=== PATIENT | female | born 1965 | race American Indian/Alaskan Native ===

== ENCOUNTER 2017-08-03 05:56 | Day surgery (SDC) | payer OTHER ==
[2017-08-03] MEDS ORDERED: VERSED IV NR (06:00)
[2017-08-03] MEDS ORDERED: PEPCID PO NR (06:00)
[2017-08-03] MEDS ORDERED: NACL 0.9% 1000 ML 1,000 ML IV SCH (06:00)
[2017-08-03] MEDS ORDERED: ANCEF/STERILE WATER 2 GM/20 ML 2 GM/20 ML SYRINGE IV NR (06:00)
[2017-08-03] MEDS ORDERED: NACL BACTERIOSTATIC INFILTRATI ONE (06:39)
--- NOTE | 2017-08-03 06:50 | Anesthesia Consultation ---
Anesthesia Consult and Med Hx Date of service: 08/03/17 - Airway Anesthetic Teeth Evaluation: Good ROM Head & Neck: Adequate Mental/Hyoid Distance: Adequate Mallampati Class: Class III Intubation Access Assessment: Possibly Difficult - Pulmonary Exam CTA: Yes - Cardiac Exam Cardiac Exam: RRR - Pre-Operative Health Status ASA Pre-Surgery Classification: ASA3 Proposed Anesthetic Plan: General - Pulmonary Hx Smoking: Yes (STOPPED X 30 YRS) Hx Sleep Apnea: No (GRECIA PRE SCREEN HIGH RISK) - Cardiovascular System Hx Hypertension: Yes (X 5 YRS) Hx Angina: No Hx Heart Murmur: Yes (CAUSES NO PROBLEMS) - Endocrine Hx End Stage Renal Disease: Yes (Has vas cath, last dialyzed 08/02/17) Hx Insulin Dependent Diabetes: Yes - Hematic Hx Anemia: Yes - Other Systems Hx Cancer: No
[2017-08-03] MEDS ORDERED: DILAUDID IV PRN ×2 (06:51)
--- NOTE | 2017-08-03 06:51 | Anesthesia Day of Surgery ---
Anesthesia Day of Surgery - Day of Surgery Patient Examined: Yes Patient H&P Reviewed: Yes Patient is NPO: Yes Beta Blockers: Yes
[2017-08-03 07:15] LABS: Hematocrit 34.9 % (30.3-42.9); Hemoglobin 11.2 gm/dl (10.1-14.3)
[2017-08-03 07:34] LABS: Albumin 3.6 g/dL (3.9-5); Albumin/Globulin Ratio 0.9 %; Bilirubin,Total 0.4 mg/dL (0.1-1.2); Calcium 8.7 mg/dL (8.4-10.2); Chloride 96.8 mmol/L (98-107); Total Protein 7.6 g/dL (6.3-8.2)
[2017-08-03 07:41] LABS: Potassium 5.3 mmol/L (3.6-5.0)
[2017-08-03] MEDS ORDERED: XYLOCAINE MPF 2% ONE (07:41)
[2017-08-03] MEDS ORDERED: DIPRIVAN 10 MG/ML IV ONE (07:41)
[2017-08-03] MEDS ORDERED: SUBLIMAZE ONE (07:41)
[2017-08-03] MEDS ORDERED: PROTAMINE SULFATE ONE (07:49)
[2017-08-03] MEDS ORDERED: NACL 0.9% 500 ML 500 ML ONE (07:49)
[2017-08-03] MEDS ORDERED: HEPARIN 10,000 UNITS/10 ML ONE (07:49)
[2017-08-03] MEDS ORDERED: PAPAVERINE ONE (07:49)
[2017-08-03] MEDS ORDERED: MARCAINE 0.5% 30 ML INFILTRATI ONE (07:49)
[2017-08-03] MEDS ORDERED: PERCOCET 5/325 PO PRN (08:00)
[2017-08-03] MEDS ORDERED: ZOFRAN IV PRN (08:00)
[2017-08-03] MEDS ORDERED: HEPARIN 10,000 UNITS/10 ML 2,000 UNIT in NACL 0.9% 500 ML 500 ML IR ONE (08:35)
[2017-08-03] MEDS ORDERED: NACL 0.9% IR ONE (08:36)
[2017-08-03] MEDS ORDERED: MARCAINE 0.5% INFILTRATI ONE ×2 (08:36)
[2017-08-03] MEDS ORDERED: ePHEDrine SULFATE ONE (09:01)
[2017-08-03] MEDS ORDERED: ZOFRAN ONE ×2 (09:39→12:22)
--- NOTE | 2017-08-03 09:45 | Operative Report ---
Operative Report Operative Report: Preoperative diagnosis: End-stage renal disease/dialysis dependent renal failure. Postop diagnosis: The same Procedure: Left radiocephalic arteriovenous fistula creation. Surgeon: Blane Padron MD., RPVI Nursing Program Director: none Anesthesia: Local with IV sedation EBL: 20 mL IV fluids: 600 mL Findings: Adequate size left radial artery, adequate size left cephalic vein, palpable thrill in the vein after the anastomosis. Disposition: To recovery Indications end-stage renal disease. Procedure in details: Patient was brought to the operating room and laid on the operating room table in supine position. After LMA anesthesia was achieved patient left arm was prepped and draped in the usual sterile fashion. The longitudinal incision between the palpated radial artery and imaged cephalic vein made using #15 blade. Subcutaneous tissue was divided with Bovie electrocautery. The left cephalic vein was dissected free. The cephalic vein was disconnected from the distal cephalic vein and controlled was bulldog. It was heparinized with heparinized saline and dilated well. The left radial artery was then dissected and encircled with Vesseloops proximally and distally. Patient received 2000 units of intravenous heparin. After 3 minutes the artery was occluded with vessel clamps and arteriotomy was made using #11 blade and Hammonds scissors. The distal end of the vein was spatulated using Hammonds scissors. The anastomosis was created using a running 7-0 Prolene running suture using BV1 needle. Prior to completion the artery was flushed proximally and distally and good forward and back bleeding was seen. Then anastomosis was completed the clamps were removed. The hemostasis was excellent. The strong thrill was appreciated over the cephalic vein. Once it was ascertained that hemostasis was good the skin was closed using 3-0 vicryl and 4-0 monocryl sutures. Patient tolerated procedure well. He was awakened and taken to the recovery room. At the end of the case 1/4 percent Marcaine when infiltrated into the incision for postoperative pain control. All sponge and needle counts were correct.
--- NOTE | 2017-08-03 09:48 | Short Stay Summary ---
Short Stay Documentation - History H&P: obtained from office - Allergies and Medications Current Medications: Allergies amlodipine Allergy (Verified 08/02/17 10:42) Itching losartan Allergy (Verified 08/02/17 10:42) Itching sulfamethoxazole [From Bactrim] Allergy (Verified 08/02/17 10:42) Rash trimethoprim [From Bactrim] Allergy (Verified 08/02/17 10:42) Rash morphine Adverse Reaction (Verified 08/02/17 10:42) Vomiting Home Medications Medication Instructions Recorded Confirmed Last Taken Type Insulin Glargine [Lantus] 10 unit SUB-Q QHS 08/02/17 08/03/17 08/02/17 History Insulin Lispro [HumaLOG VIAL] 8 units SQ BID 08/02/17 08/03/17 08/02/17 History Labetalol [Normodyne] 200 mg PO BID 08/02/17 08/03/17 08/03/17 History Torsemide [Demadex] 60 mg PO BID 08/02/17 08/03/17 08/03/17 History cloNIDine [Catapres] 0.2 mg PO BID 08/02/17 08/03/17 08/03/17 History Active Medications Famotidine (Pepcid) 20 mg PO PREOP NR Stop: 08/03/17 23:59 Last Admin: 08/03/17 07:00 Dose: 20 mg Hydromorphone HCl (Dilaudid) 0.5 mg IV Q10MIN PRN PRN Reason: Pain , Severe (7-10) Stop: 08/03/17 15:00 Hydromorphone HCl (Dilaudid) 0.25 mg IV Q10MIN PRN PRN Reason: Pain, Moderate (4-6) Stop: 08/03/17 15:00 Cefazolin Sodium (Ancef/Sterile Water 2 Gm/20 Ml) 2 gm in 20 mls @ 80 mls/hr IV PREOP NR PRN Reason: Protocol Stop: 08/03/17 15:00 Sodium Chloride (Nacl 0.9% 1000 Ml) 1,000 mls @ 42 mls/hr IV DIRECT FATMATA Last Admin: 08/03/17 06:45 Dose: 42 mls/hr Midazolam HCl (Versed) 2 mg IV PREOP NR Stop: 08/03/17 23:59 Last Admin: 08/03/17 07:11 Dose: 2 mg - Brief post op/procedure progress note Procedure: Preoperative diagnosis: End-stage renal disease/dialysis dependent renal failure. Postop diagnosis: The same Procedure: Left radiocephalic arteriovenous fistula creation. Surgeon: Emperatriz Padron MD., RPVI Lime Sludge Kiln Operator: none Anesthesia: Local with IV sedation EBL: 20 mL IV fluids: 600 mL Findings: Adequate size left radial artery, adequate size left cephalic vein, palpable thrill in the vein after the anastomosis. Disposition: To recovery - Disposition Condition at discharge: Good Disposition: DC-01 TO HOME OR SELFCARE Short Stay Discharge Plan Activity: other (no heavy lifting with left arm for 6 weeks) Weight Bearing Status: Full Weight Bearing Diet: renal Wound: open to air Follow up with: EMPERATRIZ PADRON MD [Staff Physician] - 14 Days
[2017-08-03] MEDS ORDERED: D50W (25GM) Syringe IV ONE ×2 (10:04→11:00)
--- NOTE | 2017-08-03 10:42 | Post Anesthesia Evaluation ---
- Post Anesthesia Evaluation Patient Participated: Yes Airway Patent: Yes Stable Respiratory Function: Yes Nausea/Vomiting: No Temp > 96.8F: Yes Pain Manageable: Yes Adequeate Hydration: Yes Anesthesia Complications: No Block Receding Appropriately: Not Applicable Patient on Ventilator: No
[2017-08-03] MEDS ORDERED: ZOFRAN IM ONE (13:00)
[2017-08-03 18:31] VITALS: BP 150/76
== END 2017-08-03 12:42 | disposition home or self-care (01) ==
LOC: OR 05:56
PROVIDERS: ATTEND Surgery Vascular Surgery
DX: E11.22 Type 2 diabetes mellitus with diabetic chronic kidney disease (principal); I12.0 Hypertensive chronic kidney disease with stage 5 chronic kidney disease or end stage renal disease; N18.6 End stage renal disease; Z88.1 Allergy status to other antibiotic agents; Z88.6 Allergy status to analgesic agent; Z88.8 Allergy status to other drugs, medicaments and biological substances; Z87.891 Personal history of nicotine dependence
CPT/HCPCS: 36415; 36821; 80053; 82962; 85014; 85018; J0690; J1170; J1644; J2250; J2405; J2704; J3010; J7030; J7040; J1815; J2440; J2720

== ENCOUNTER 2018-11-15 23:54 | Inpatient (IN) | payer OTHER ==
[2018-11-16 00:38] LABS: Hematocrit 35.1 % (30.3-42.9); Hemoglobin 11.6 gm/dl (10.1-14.3); Mean Corpuscular HGB Conc 33 % (30-34); Mean Corpuscular Volume 71 fl (79-97); Red Blood Count 4.91 M/mm3 (3.65-5.03)
[2018-11-16 00:39] LABS: Platelet Count 194 K/mm3 (140-440)
[2018-11-16] MEDS ORDERED: ZOFRAN ODT PO ONE (00:47)
[2018-11-16] MEDS ORDERED: ZOFRAN IV ONE (00:55)
[2018-11-16] MEDS ORDERED: SUBLIMAZE IV ONE ×2 (00:56→02:00)
[2018-11-16] MEDS ORDERED: ZOFRAN ONE (00:58)
[2018-11-16] MEDS ORDERED: MORPHINE ONE (00:58)
[2018-11-16 00:59] LABS: Albumin 4.3 g/dL (3.9-5); Calcium 9.2 mg/dL (8.4-10.2)
[2018-11-16] MEDS ORDERED: SUBLIMAZE ONE (01:01)
--- NOTE | 2018-11-16 01:02 | Emergency Department Report ---
ED Abdominal Pain HPI - General Chief Complaint: Abdominal Pain Stated Complaint: ABDOMINAL PAIN Time Seen by Provider: 11/16/18 00:48 Source: patient, family Mode of arrival: Ambulatory Limitations: No Limitations - History of Present Illness Initial Comments: Patient is 53 years old female with history of end stage renal disease on hemodialysis, diabetes and hypertension. Patient presented to the ER complaining of diffuse abdominal pain started today with no radiation. Patient stated that she had ERCP today at [facility]. Patient stated that she had ERCP today because of increased liver enzymes. Patient stated that she was fine until she got home. Patient denied any fever or chest pain MD Complaint: abdominal pain -: Sudden Location: diffuse Radiation: none Migration to: no migration Severity: severe Severity scale (0 -10): 10 Quality: sharp Consistency: constant - Related Data Home Medications Medication Instructions Recorded Confirmed Last Taken Insulin Glargine [Lantus VIAL] 10 unit SUB-Q QHS 08/02/17 02/28/18 3 Days Ago ~02/25/18 Insulin Lispro [HumaLOG VIAL] 8 units SQ BID 08/02/17 02/28/18 3 Days Ago ~02/25/18 Labetalol [Normodyne TAB] 200 mg PO BID 08/02/17 02/28/18 3 Days Ago ~02/25/18 Torsemide [Demadex] 60 mg PO BID 08/02/17 02/28/18 3 Days Ago ~02/25/18 cloNIDine [Catapres] 0.2 mg PO BID 08/02/17 02/28/18 3 Days Ago ~02/25/18 Previous Rx's Medication Instructions Recorded Last Taken Type Zolpidem [Ambien] 5 mg PO QHS PRN #7 tablet 03/02/18 Unknown Rx levoFLOXacin [Levaquin TAB] 500 mg PO Q48H #7 tablet 03/02/18 Unknown Rx metroNIDAZOLE [Flagyl TAB] 500 mg PO Q8H #21 tablet 03/02/18 Unknown Rx Allergies Allergy/AdvReac Type Severity Reaction Status Date / Time amlodipine Allergy Itching Verified 08/02/17 10:42 losartan Allergy Itching Verified 08/02/17 10:42 sulfamethoxazole Allergy Rash Verified 08/02/17 10:42 [From Bactrim] trimethoprim [From Bactrim] Allergy Rash Verified 08/02/17 10:42 morphine AdvReac Vomiting Verified 08/02/17 10:42 ED Review of Systems ROS: Stated complaint: ABDOMINAL PAIN Other details as noted in HPI Comment: All other systems reviewed and negative Constitutional: denies: chills, diaphoresis, fever Respiratory: denies: cough, orthopnea, shortness of breath, SOB with exertion, SOB at rest Cardiovascular: denies: chest pain, palpitations, dyspnea on exertion, orthopnea Gastrointestinal: abdominal pain, nausea. denies: vomiting, diarrhea, constipation, hematemesis, melena, hematochezia Musculoskeletal: denies: back pain Neurological: denies: headache, weakness, numbness, paresthesias, confusion, abnormal gait ED Past Medical Hx - Past Medical History Previous Medical History?: Yes Hx Hypertension: Yes (X 5 YRS) Hx Diabetes: Yes Hx Renal Disease: Yes Additional medical history: dialysis Tues, Th Sat - Surgical History Past Surgical History?: Yes Additional Surgical History: Fistula - Social History Smoking Status: Former Smoker Substance Use Type: None - Medications Home Medications: Home Medications Medication Instructions Recorded Confirmed Last Taken Type Insulin Glargine [Lantus VIAL] 10 unit SUB-Q QHS 08/02/17 02/28/18 3 Days Ago History ~02/25/18 Insulin Lispro [HumaLOG VIAL] 8 units SQ BID 08/02/17 02/28/18 3 Days Ago History ~02/25/18 Labetalol [Normodyne TAB] 200 mg PO BID 08/02/17 02/28/18 3 Days Ago History ~02/25/18 Torsemide [Demadex] 60 mg PO BID 08/02/17 02/28/18 3 Days Ago History ~02/25/18 cloNIDine [Catapres] 0.2 mg PO BID 08/02/17 02/28/18 3 Days Ago History ~02/25/18 Zolpidem [Ambien] 5 mg PO QHS PRN #7 tablet 03/02/18 Unknown Rx levoFLOXacin [Levaquin TAB] 500 mg PO Q48H #7 tablet 03/02/18 Unknown Rx metroNIDAZOLE [Flagyl TAB] 500 mg PO Q8H #21 tablet 03/02/18 Unknown Rx ED Physical Exam - General Limitations: No Limitations General appearance: alert, in distress - Head Head exam: Present: atraumatic, normocephalic, normal inspection - Eye Eye exam: Present: normal appearance - ENT ENT exam: Present: normal exam, normal orophraynx, mucous membranes moist - Neck Neck exam: Present: normal inspection, full ROM. Absent: tenderness, meningismus, lymphadenopathy, thyromegaly - Respiratory Respiratory exam: Present: normal lung sounds bilaterally - Cardiovascular Cardiovascular Exam: Present: regular rate, normal rhythm, normal heart sounds - GI/Abdominal GI/Abdominal exam: Present: soft, tenderness, normal bowel sounds. Absent: distended, guarding, rebound, rigid, hypoactive bowel sounds, organomegaly, mass, bruit, pulsatile mass, hernia - Extremities Exam Extremities exam: Present: normal inspection, full ROM, normal capillary refill - Back Exam Back exam: Present: normal inspection, full ROM. Absent: tenderness, CVA tenderness (R), CVA tenderness (L), muscle spasm, paraspinal tenderness, vertebral tenderness - Neurological Exam Neurological exam: Present: alert, oriented X3, CN II-XII intact, normal gait, r eflexes normal - Skin Skin exam: Present: warm, intact, normal color ED Course Vital Signs 11/16/18 11/16/18 11/16/18 00:08 00:27 00:31 Temperature 97.5 F L Pulse Rate 85 84 82 Respiratory 20 13 Rate Blood Pressure Blood Pressure 233/104 [Right] O2 Sat by Pulse 100 100 Oximetry 11/16/18 11/16/18 11/16/18 00:45 01:01 01:15 Temperature Pulse Rate 80 76 78 Respiratory 20 13 17 Rate Blood Pressure 182/83 175/78 171/81 Blood Pressure [Right] O2 Sat by Pulse 100 88 87 Oximetry 11/16/18 11/16/18 11/16/18 01:30 01:45 02:00 Temperature Pulse Rate 77 77 Respiratory 16 17 Rate Blood Pressure 185/84 185/85 181/85 Blood Pressure [Right] O2 Sat by Pulse 99 99 100 Oximetry 11/16/18 11/16/18 11/16/18 02:15 02:30 02:31 Temperature Pulse Rate 78 77 Respiratory 14 14 18 Rate Blood Pressure 186/86 195/90 Blood Pressure [Right] O2 Sat by Pulse 100 99 Oximetry 11/16/18 11/16/18 02:45 03:00 Temperature Pulse Rate 78 77 Respiratory 15 12 Rate Blood Pressure 189/84 184/71 Blood Pressure [Right] O2 Sat by Pulse 100 100 Oximetry ED Medical Decision Making - Lab Data Result diagrams: 11/16/18 00:09 11/16/18 00:08 - Radiology Data Radiology results: report reviewed Referring Physician: JANET MOJICA Patient Name: ANNA ACEVES Date of : 1965 Sex: Female Report Date: 2018-11-16 Report Status: Finalized Findings [facility] [address] [place] [address] Cat Scan Report Signed Patient: ANNA ACEVES MR#: [id number] : 1965 Acct:[id number] Age/Sex: 53 / F ADM Date: 11/15/18 Loc: ED Attending Dr: Ordering Physician: JANET MOJICA Date of Service: 11/16/18 Procedure(s): CT abdomen pelvis wo con Accession Number(s): [id number] cc: JANET MOJICA FINAL REPORT PROCEDURE: CT ABDOMEN PELVIS WO CON TECHNIQUE: Computerized axial tomography of the abdomen and pelvis was performed without intravenous contrast. This study is performed without intravascular contrast material and its sensitivity for abdominal and pelvic pathology, including neoplasms, inflammation, abscess, free fluid, thrombosis, arterial dissection and infarction, is reduced compared with a contrast enhanced study. HISTORY: ABDOMINAL PAIN/ ERCP TODAY COMPARISON: 02/28/2018 FINDINGS: Visualized lower thorax: No significant abnormality. Liver: There are calcified granulomas in the liver. There is pneumobilia most likely related to ERCP.. Spleen: Normal size and attenuation. Gallbladder and biliary system: The gallbladder is filled with contrast most likely from recent ERCP.. Pancreas: Normal. Adrenals: Normal. Kidneys: There is bilateral renal atrophy and intrarenal vascular calcification. There are no stones. There is no hydronephrosis.. GI tract: There is no bowel obstruction, colitis or enteritis. The appendix is not identified.. Lymph nodes and mesentery: Normal. Vasculature: There is diffuse calcified plaque in the abdominal aorta and visceral branches. There is no aneurysm.. Bladder: Normal. Reproductive organs: Uterus is prominent. Peritoneum: There is moderate ascites. There is no free air. There is no abscess or adenopathy.. Musculoskeletal structures: No significant abnormality. Other: There is generalized subcutaneous edema which could be due to fluid overload.. IMPRESSION: There are calcified granulomas in the liver. There is pneumobilia most likely related to ERCP.. The gallbladder is filled with contrast most likely from recent ERCP.. There is bilateral renal atrophy and intrarenal vascular calcification. There a re no stones. There is no hydronephrosis.. There is no bowel obstruction, colitis or enteritis. The appendix is not identified.. There is diffuse calcified plaque in the abdominal aorta and visceral branches. There is no aneurysm.. Uterus is prominent. There is moderate ascites. There is no free air. There is no abscess or adenopathy.. There is generalized subcutaneous edema which could be due to fluid overload.. . Transcribed By: CO Dictated By: MIGNON SAVAGE MD Electronically Authenticated By: MIGNON SAVAGE MD Signed Date/Time: 11/16/18345 DD/ 7 TD/TT: 11/16/18347 - Medical Decision Making Patient is 53 years old female with history of end stage renal disease on hemodialysis, diabetes and hypertension. Patient presented to the ER complaining of diffuse abdominal pain started today with no radiation. Patient stated that she had ERCP today at [facility]. Patient stated that she had ERCP today because of increased liver enzymes. Patient stated that she was fine until she got home. Patient denied any fever or chest pain. CT abdomen and pelvis is negative for acute finding. I discussed the patient is Dr. Munson, she advises to admit the patient for pain control and further management. I discussed the patient is Dr. Avila, he agreed to admit the patient to medical service for further treatment. Critical care attestation.: If time is entered above; I have spent that time in minutes in the direct care of this critically ill patient, excluding procedure time. ED Disposition Clinical Impression: ESRD (end stage renal disease), Abdominal pain, S/P ERCP Disposition: OP ADMIT IP TO THIS HOSP Is pt being admited?: Yes Condition: Stable Instructions: Abdominal Pain (ED) Referrals: JORGE GIL MD [Primary Care Provider] - 3-5 Days
[2018-11-16 01:09] LABS: Band Neutrophils # (Manual) 0.1 K/mm3; Basophils % (Manual) 0 % (0.0-1.8); Eosinophils % (Manual) 0 % (0.0-4.3); Hypochromasia 3+; Total Cells Counted 100
[2018-11-16 01:10] LABS: Giant Platelets Few; Ovalocytes 1+; Poikilocytosis 1+; Target Cells 2+; Tear Drop Cells Few
--- NOTE | 2018-11-16 03:46 | Cat Scan Report ---
FINAL REPORT PROCEDURE: CT ABDOMEN PELVIS WO CON TECHNIQUE: Computerized axial tomography of the abdomen and pelvis was performed without intravenous contrast. This study is performed without intravascular contrast material and its sensitivity for ab dominal and pelvic pathology, including neoplasms, inflammation, abscess, free fluid, thrombosis, art erial dissection and infarction, is reduced compared with a contrast enhanced study. HISTORY: ABDOMINAL PAIN/ ERCP TODAY COMPARISON: 02/28/2018 FINDINGS: Visualized lower thorax: No significant abnormality. Liver: There are calcified granulomas in the liver. There is pneumobilia most likely related to ERCP. . Spleen: Normal size and attenuation. Gallbladder and biliary system: The gallbladder is filled with contrast most likely from recent ERCP. . Pancreas: Normal. Adrenals: Normal. Kidneys: There is bilateral renal atrophy and intrarenal vascular calcification. There are no stones. There is no hydronephrosis.. GI tract: There is no bowel obstruction, colitis or enteritis. The appendix is not identified.. Lymph nodes and mesentery: Normal. Vasculature: There is diffuse calcified plaque in the abdominal aorta and visceral branches. There is no aneurysm.. Bladder: Normal. Reproductive organs: Uterus is prominent. Peritoneum: There is moderate ascites. There is no free air. There is no abscess or adenopathy.. Musculoskeletal structures: No significant abnormality. Other: There is generalized subcutaneous edema which could be due to fluid overload.. IMPRESSION: There are calcified granulomas in the liver. There is pneumobilia most likely related to ERCP.. The gallbladder is filled with contrast most likely from recent ERCP.. There is bilateral renal atrophy and intrarenal vascular calcification. There are no stones. There is no hydronephrosis.. There is no bowel obstruction, colitis or enteritis. The appendix is not identified.. There is diffuse calcified plaque in the abdominal aorta and visceral branches. There is no aneurysm. . Uterus is prominent. There is moderate ascites. There is no free air. There is no abscess or adenopathy.. There is generalized subcutaneous edema which could be due to fluid overload.. .
[2018-11-16] MEDS ORDERED: TYLENOL PR PRN (04:57)
[2018-11-16] MEDS ORDERED: AMBIEN PO PRN (04:58)
[2018-11-16] MEDS ORDERED: D50W (25GM) Syringe IV PRN (05:01)
[2018-11-16] MEDS: DILAUDID IV PRN ×3 (06:03→16:12)
[2018-11-16] MEDS: HumuLIN R SUB-Q SCH ×4 (06:33→17:55)
--- NOTE | 2018-11-16 06:54 | History and Physical Report ---
CHIEF COMPLAINT: Abdominal pain. HISTORY OF PRESENTING ILLNESS: The patient is a 53-year-old female who had ERCP done about 24-48 hours ago at [facility] and subsequently started having abdominal pain. The patient said the ERCP was done because of elevated liver enzymes. There is no history of fever or chills. No history of chest pain. Also, the patient denies history of vomiting, but has nausea. There is also no history of diarrhea, constipation or dark stool or hematochezia. PAST MEDICAL HISTORY: Pertinent for hypertension; diabetes mellitus; end-stage renal disease, on dialysis. PAST SURGICAL HISTORY: Pertinent for dialysis fistula placement and ERCP done within the last 24-48 hours. SOCIAL HISTORY: The patient is a former cigarette smoker, but does not smoke anymore. Does not drink alcohol and does not use illicit drugs. MEDICATIONS: The patient is on Lantus insulin 10 units subcutaneous at bedtime, insulin lispro 8 units subcutaneous b.i.d., labetalol 200 mg by mouth b.i.d., torsemide 60 mg by mouth twice daily, clonidine 0.2 mg by mouth b.i.d., and Ambien 5 mg at bedtime. Also, the patient is on Levaquin 500 mg by mouth every 48 hours and metronidazole 500 mg by mouth every 8 hours. ALLERGIES: THE PATIENT IS ALLERGIC TO AMLODIPINE, LOSARTAN, SULFA DRUGS, AND MORPHINE. REVIEW OF SYSTEMS: CONSTITUTIONAL: There is no fever, no chills, no diaphoresis. HEENT: There is no headache or sore throat. CARDIOVASCULAR: There is no chest pain or orthopnea. RESPIRATORY SYSTEM: There is no shortness of breath or cough. GASTROINTESTINAL SYSTEM: Abdominal pain present, nausea present. No vomiting, no diarrhea, no constipation. NEUROLOGICAL SYSTEM: There is no numbness, no dizziness, no altered mental status. MUSCULOSKELETAL SYSTEM: There is no joint pain or swelling. DERMATOLOGICAL SYSTEM: There is no skin rash or itching. GENITOURINARY SYSTEM: There is no dysuria, hematuria, or flank pain. Rest of system review is normal. PHYSICAL EXAMINATION: GENERAL: At the time of exam, the patient was found to be alert, oriented x 3, and in [id number] distress due to abdominal pain. VITAL SIGNS: At the initial time of presentation showed temperature of 97.5 degrees Fahrenheit, pulse of 85, respirations 20, blood pressure of 233/104, O2 sat of 100% on room air with blood pressure now down to 163/72. HEENT: Shows pupils to be equal, round, reactive to light and accommodating. Extraocular muscles are intact. NECK: Supple with no JVD or carotid bruits. CARDIOVASCULAR SYSTEM: Shows normal first and second heart sounds with no gallops or murmurs. RESPIRATORY SYSTEM: Shows good air entry on both sides of the lungs with no abnormal breath sounds. GASTROINTESTINAL SYSTEM: Shows abdomen to be full, soft, tender all over with no rigidity, no rebound tenderness. No organomegaly is elicited. NEUROLOGIC SYSTEM: Shows no focal deficits. MUSCULOSKELETAL SYSTEM: Shows no joint swelling or tenderness. DERMATOLOGICAL SYSTEM: Shows no skin rash. GENITOURINARY SYSTEM: Showing no costovertebral angle tenderness. PERTINENT LABORATORY AND IMAGING STUDIES: The patient had CT of the abdomen and pelvis without contrast done that shows calcified granuloma in the liver with pneumobilia, most likely related to ERCP according to the radiologist. Also, there is filling of the gallbladder with contrast from the ERCP. There is bilateral renal atrophy and intrarenal vascular calcification, but there are no stones. There is also no bowel obstruction found and no colitis or enteritis found. The appendix was not identified. There is no finding of any free air, but there is moderate ascites found and there is no abscess or adenopathy found. The patient's lab results show CBC with normal white count, normal hemoglobin, and normal hematocrit with CBC differential showing elevated segmented neutrophil count of 82%. The patient's chemistry showed low sodium of 135, low chloride of 90 with elevated BUN of 34 and elevated creatinine of 5.3 consistent with the patient's end-stage renal disease, on dialysis. DIAGNOSES: 1. Abdominal pain following ERCP. 2. End-stage renal disease, on dialysis. PLAN OF ACTION: 1. The patient will be admitted to medical surgical [facility]kins. 2. The patient will continue GI consult with Dr. Munson, requested by the Emergency Room physician. 3. The patient will be n.p.o. until reviewed by the area loss prevention manager. 4. The patient will have a Nephrology consult with Dr. Beltran because of end-stage renal disease. 5. The patient will be on IV Dilaudid 1 mg every 4 hours as needed for pain and IV Zofran 4 mg every 8 hours for nausea and vomiting. 6. The patient will be on Accu-Cheks a.c. and at bedtime followed by low-dose sliding scale using Regular insulin. 7. The patient will be on her home medications as shown in the medication reconciliation section that will include clonidine 0.2 mg by mouth twice daily. 8. The patient will be on p.r.n. medications like Tylenol 650 mg per rectum every 4 hours for fever and headache. JOB# [id number] OCN/NTS MTDD
--- NOTE | 2018-11-16 08:43 | Event Note ---
Date: 11/16/18 Patient presents with abdominal pain after ERCP 11/15/18. Also has ESRD on dialysis. I have seen and examined her. GI Physician to see. Requested records from [facility].
--- NOTE | 2018-11-16 09:42 | Consultation ---
History of Present Illness - Reason for Consult end stage renal disease - History of Present Illness This is a very pleasant 53-year-old female with a past medical history significant for end-stage renal disease in the setting of diabetes and hypertension, who is well-known to us in the outpatient dialysis unit, who presents status post ERCP postoperative day #1 due to abdominal pain and pancreatitis. Patient was initially evaluated for ERCP secondary to elevated liver function tests. The procedure was done at [facility]. Patient's last hemodialysis session was Tuesday as she is on a Tuesday//Tuesday schedule. She dialyzes at the [facility]. She has a left radiocephalic AV fistula. Past History Past Medical History: anemia, diabetes, dialysis, hypertension, hyperlipidemia Past Surgical History: Other (Left AVF) Social history: lives with family Family history: diabetes, hypertension Medications and Allergies Allergies Allergy/AdvReac Type Severity Reaction Status Date / Time amlodipine Allergy Itching Verified 08/02/17 10:42 losartan Allergy Itching Verified 08/02/17 10:42 sulfamethoxazole Allergy Rash Verified 08/02/17 10:42 [From Bactrim] trimethoprim [From Bactrim] Allergy Rash Verified 08/02/17 10:42 morphine AdvReac Vomiting Verified 08/02/17 10:42 Home Medications Medication Instructions Recorded Confirmed Last Taken Type Insulin Glargine [Lantus VIAL] 10 unit SUB-Q QHS 08/02/17 11/16/18 3 Days Ago H istory ~02/25/18 Insulin Lispro [HumaLOG VIAL] 8 units SQ BID 08/02/17 11/16/18 3 Days Ago H istory ~02/25/18 Labetalol [Normodyne TAB] 200 mg PO BID 08/02/17 11/16/18 3 Days Ago History ~02/25/18 Torsemide [Demadex] 60 mg PO BID 08/02/17 11/16/18 3 Days Ago History ~02/25/18 cloNIDine [Catapres] 0.2 mg PO BID 08/02/17 11/16/18 3 Days Ago History ~02/25/18 Zolpidem [Ambien] 5 mg PO QHS PRN #7 tablet 03/02/18 11/16/18 Unknown Rx levoFLOXacin [Levaquin TAB] 500 mg PO Q48H #7 tablet 03/02/18 11/16/18 Unknown Rx metroNIDAZOLE [Flagyl TAB] 500 mg PO Q8H #21 tablet 03/02/18 11/16/18 Unknown Rx Active Meds: Active Medications Acetaminophen (Tylenol) 650 mg [place] Q4H PRN PRN Reason: Fever >101 Clonidine HCl (Catapres) 0.2 mg PO BID FATMATA Dextrose (D50w (25gm) Syringe) 50 ml IV PRN PRN PRN Reason: Hypoglycemia Hydromorphone HCl (Dilaudid) 1 mg IV Q4H PRN PRN Reason: Pain , Severe (7-10) Last Admin: 11/16/18 06:03 Dose: 1 mg Documented by: Lactated Ringer's (Lactated Ringers) 1,000 mls @ 75 mls/hr IV DIRECT FATMATA Insulin Human Regular (Humulin R) 0 units SUB-Q Q4H FATMATA; Protocol Last Admin: 11/16/18 06:33 Dose: 2 units Documented by: Labetalol HCl (Normodyne) 200 mg PO BID [facility] Ondansetron HCl (Zofran) 4 mg IV Q8H PRN PRN Reason: Nausea And Vomiting Zolpidem Tartrate (Ambien) 5 mg PO QHS PRN PRN Reason: Sleep Review of Systems All systems: negative Constitutional: weakness, poor appetite Gastrointestinal: abdominal pain, nausea Exam - Vital Signs Vital signs: Vital Signs Temp Pulse Resp BP Pulse Ox 97.5 F L 85 20 233/104 100 11/16/18 00:08 11/16/18 00:08 11/16/18 00:08 11/16/18 00:08 11/16/18 00:08 - General Appearance General appearance: well-developed, well-nourished, appears stated age, fatigue EENT: ATNC, PERRL Neck: Present: neck supple, trachea midline Respiratory: Clear to Ascultation Heart: regular, S1S2 Gastrointestinal: Present: normal, normoactive bowel sounds Integumentary: no rash, warm and dry Neurologic: no focal deficit, no asterixis, alert and oriented x3 Musculoskeletal: Present: other (-edema ) Psychiatric: mood/affect appropriate, cooperative Results - Lab Results 11/16/18 00:09 11/16/18 00:08 Most recent lab results Calcium 9.2 mg/dL (8.4-10.2) 11/16/18 00:08 Assessment and Plan - Patient Problems (1) ESRD (end stage renal disease) Current Visit: Yes Status: Acute Plan to address problem: We will write orders for hemodialysis today and maintain patient on TTS schedule as an inpatient. (2) Pancreatitis Current Visit: Yes Status: Acute Plan to address problem: Patient nothing by mouth at present time. In regards to IV fluid hydration, I would recommend that in this anuric patient we hydrate no more than than 1-1.5L of fluid in a 24-hour time period. This is to avoid volume overload. Recommend that fluids be run at 50-75 mL an hour. Discussed with primary physician. (3) S/P ERCP Current Visit: Yes Status: Acute Plan to address problem: Further recommendations per GI. (4) Hypertensive chronic kidney disease with stage 5 chronic kidney disease or end stage renal disease Current Visit: No Status: Acute Plan to address problem: Recommend that we restart all home medications and closely monitor. Blood p ressure elevation is also likely being aggravated by her current abdominal pain and discomfort. (5) Type 2 diabetes mellitus with diabetic chronic kidney disease Current Visit: No Status: Chronic Qualifiers: Chronic kidney disease stage: on chronic dialysis Plan to address problem: Continue patient's current home regimen. Further monitoring and management per primary attending. (6) Nausea & vomiting Current Visit: No Status: Acute Plan to address problem: Medical management per primary team.
[2018-11-16] MEDS ORDERED: NACL 0.9% 100 ML IV PRN (09:47)
[2018-11-16] MEDS ORDERED: ALBURX 25% (ALBUMIN) IV PRN (09:47)
[2018-11-16] MEDS ORDERED: LACTATED RINGERS 1,000 ML IV SCH (10:00)
[2018-11-16] MEDS ORDERED: NACL 0.9 (PRIMING MACHINE ONLY DIALYSIS) MC ONE (10:14)
[2018-11-16] MEDS: NORMODYNE PO SCH ×2 (10:22→22:15)
[2018-11-16] MEDS: CATAPRES PO SCH ×2 (10:22→22:14)
[2018-11-16] MEDS: ZOFRAN IV PRN ×2 (11:39→19:27)
[2018-11-16 12:57] LABS: Albumin 3.8 g/dL (3.9-5); Bilirubin,Direct 6.6 mg/dL (0-0.2)
--- NOTE | 2018-11-16 13:09 | Gastroenterology Consultation ---
Addendum entered and electronically signed by JAHAIRA TOUSSAINT MD 11/16/18 18:20: Patient seen and examined. Agree with A/P and recommendations. 53 yo female known to our clinic and s/p ERCP with sphincterotomy on 11/15/2018 at [facility] admitted for abdominal pain post procedure. - HD stable. normal wbc. - CT abdomen without acute findings besides pneumobilia, which is expected. - recommend IVF for post ERCP pancreatitis. Patient getting HD today. - will follow. Original Note: History of Present Illness - Reason for Consult Consult date: 11/16/18 abdominal pain Requesting physician: JANET MOJICA - History of Present Illness Patient is a 53 y/o female with PMH of ESRD on HD, DM, HTN, and HLD who presented to ED with c/o abd pain s/p outpatient ERCP yesterday at [facility] for evaluation of elevated LFTs (sphincterotomy to which GI has been consulted. Upon admission, abd CT showed no acute findings but lipase was noted to be elevated at 740 and she was admitted for pancreatitis. This morning patient was resting in bed with reports of continue upper abd pain that radiates across LUQ/epigastric area/RUQ. Admits to also nausea but no vomiting this am. Denies fever, CP, SOB, jaundice, signs of bleeding or LGI symptoms. Past History Past Medical History: anemia, diabetes, dialysis, hypertension, hyperlipidemia Past Surgical History: Other (Left AVF) Social history: lives with family Family history: diabetes, hypertension Medications and Allergies Allergies Allergy/AdvReac Type Severity Reaction Status Date / Time amlodipine Allergy Itching Verified 08/02/17 10:42 losartan Allergy Itching Verified 08/02/17 10:42 sulfamethoxazole Allergy Rash Verified 08/02/17 10:42 [From Bactrim] trimethoprim [From Bactrim] Allergy Rash Verified 08/02/17 10:42 morphine AdvReac Vomiting Verified 08/02/17 10:42 Home Medications Medication Instructions Recorded Confirmed Last Taken Type Insulin Glargine [Lantus VIAL] 10 unit SUB-Q QHS 08/02/17 11/16/18 3 Days Ago History ~02/25/18 Insulin Lispro [HumaLOG VIAL] 8 units SQ BID 08/02/17 11/16/18 3 Days Ago History ~02/25/18 Labetalol [Normodyne TAB] 200 mg PO BID 08/02/17 11/16/18 3 Days Ago History ~02/25/18 Torsemide [Demadex] 60 mg PO BID 08/02/17 11/16/18 3 Days Ago History ~02/25/18 cloNIDine [Catapres] 0.2 mg PO BID 08/02/17 11/16/18 3 Days Ago History ~02/25/18 Zolpidem [Ambien] 5 mg PO QHS PRN #7 tablet 03/02/18 11/16/18 Unknown Rx levoFLOXacin [Levaquin TAB] 500 mg PO Q48H #7 tablet 03/02/18 11/16/18 Unknown Rx metroNIDAZOLE [Flagyl TAB] 500 mg PO Q8H #21 tablet 03/02/18 11/16/18 Unknown Rx Active Meds: Active Medications Acetaminophen (Tylenol) 650 mg [place] Q4H PRN PRN Reason: Fever >101 Albumin Human (Alburx 25% (Albumin)) 12.5 gm IV FRANCOIS PRN PRN Reason: Hypotension Clonidine HCl (Catapres) 0.2 mg PO BID FATMATA Dextrose (D50w (25gm) Syringe) 50 ml IV PRN PRN PRN Reason: Hypoglycemia Hydromorphone HCl (Dilaudid) 1 mg IV Q4H PRN PRN Reason: Pain , Severe (7-10) Last Admin: 11/16/18 11:38 Dose: 1 mg Documented by: Lactated Ringer's (Lactated Ringers) 1,000 mls @ 75 mls/hr IV DIRECT FATMATA Sodium Chloride (Nacl 0.9%) 100 mls @ 999 mls/hr IV FRANCOIS PRN PRN Reason: Hypotension Insulin Human Regular (Humulin R) 0 units SUB-Q Q4H FATMATA; Protocol Last Admin: 11/16/18 10:00 Dose: Not Given Documented by: Labetalol HCl (Normodyne) 200 mg PO BID [facility] Ondansetron HCl (Zofran) 4 mg IV Q8H PRN PRN Reason: Nausea And Vomiting Last Admin: 11/16/18 11:39 Dose: 4 mg Documented by: Zolpidem Tartrate (Ambien) 5 mg PO QHS PRN PRN Reason: Sleep medications reviewed/updated as required Review of Systems - Review of Systems All systems: negative Gastrointestinal: abdominal pain, nausea Exam - Constitutional Vital Signs: Temp Pulse Resp BP Pulse Ox 98.0 F 68 16 95/43 100 11/16/18 11:30 11/16/18 12:45 11/16/18 11:30 11/16/18 12:45 11/16/18 06:05 General appearance: no acute distress - Respiratory Respiratory: bilateral: CTA - Cardiovascular Rhythm: regular Heart Sounds: Present: S1 & S2 - Gastrointestinal General gastrointestinal: Present: soft, tender (mild in LUQ/epigastic/RUQ), non-distended, normal bowel sounds - Neurologic Neurological: alert and oriented x3 - Labs CBC & Chem 7: 11/16/18 00:09 11/16/18 00:08 Lab Results: Laboratory Results - last 24 hr 11/16/18 11/16/18 11/16/18 00:08 00:09 04:32 WBC 9.3 RBC 4.91 Hgb 11.6 Hct 35.1 MCV 71 L MCH 24 L MCHC 33 RDW 20.0 H Plt Count 194 Lymph % (Auto) Women'S Studies Lecturer [place] % (Auto) Women'S Studies Lecturer Eos % (Auto) Women'S Studies Lecturer Baso % (Auto) Women'S Studies Lecturer Lymph # Women'S Studies Lecturer Linn # Women'S Studies Lecturer Eos # Women'S Studies Lecturer Baso # Women'S Studies Lecturer Add Manual Diff Complete Total Counted 100 Seg Neutrophils % Women'S Studies Lecturer Seg Neuts % (Manual) 82.0 H Band Neutrophils % 1.0 Lymphocytes % (Manual) 8.0 L Reactive Lymphs % (Man) 0 Monocytes % (Manual) 9.0 H Eosinophils % (Manual) 0 Basophils % (Manual) 0 Metamyelocytes % 0 Myelocytes % 0 Promyelocytes % 0 Blast Cells % 0 Nucleated RBC % Not Reportable Seg Neutrophils # Women'S Studies Lecturer Seg Neutrophils # Man 7.6 Band Neutrophils # 0.1 Lymphocytes # (Manual) 0.7 L Abs React Lymphs (Man) 0.0 Monocytes # (Manual) 0.8 Eosinophils # (Manual) 0.0 Basophils # (Manual) 0.0 Metamyelocytes # 0.0 Myelocytes # 0.0 Promyelocytes # 0.0 Blast Cells # 0.0 WBC Morphology Not Reportable Hypersegmented Neuts Not Reportable Hyposegmented Neuts Not Reportable Hypogranular Neuts Not Reportable Smudge Cells Not Reportable Toxic Granulation Not Reportable Toxic Vacuolation Not Reportable Dohle Bodies Not Reportable Pelger-Huet Anomaly Not Reportable Mary Lou Rods Not Reportable Platelet Estimate Appears normal Clumped Platelets Not Reportable Plt Clumps, EDTA Not Reportable Large Platelets Not Reportable Giant Platelets Few Platelet Satelliting Not Reportable Plt Morphology Comment Not Reportable RBC Morphology Not Reportable Dimorphic RBCs Not Reportable Polychromasia Not Reportable Hypochromasia 3+ Poikilocytosis 1+ Anisocytosis Not Reportable Microcytosis 1+ Macrocytosis Not Reportable Spherocytes Not Reportable Pappenheimer Bodies Not Reportable Sickle Cells Not Reportable Target Cells 2+ Tear Drop Cells Few Ovalocytes 1+ Helmet Cells Not Reportable [place] Bodies Not Reportable [place] Rings Not Reportable [place] Cells Not Reportable Bite Cells Not Reportable Crenated Cell Not Reportable Elliptocytes Few Acanthocytes (Spur) Not Reportable Rouleaux Not Reportable Hemoglobin C Crystals Not Reportable Schistocytes Not Reportable Malaria parasites Not Reportable Sigifredo Bodies Not Reportable Hem Pathologist Commnt No Sodium 135 L Potassium 4.4 Chloride 90.0 L Carbon Dioxide 26 Anion Gap 23 BUN 34 H Creatinine 5.3 H Estimated GFR 10 BUN/Creatinine Ratio 6 Glucose 177 H Lactic Acid Calcium 9.2 Total Bilirubin 7.50 H Direct Bilirubin Indirect Bilirubin AST 31 ALT 23 Alkaline Phosphatase 331 H Total Protein 7.6 Albumin 4.3 Albumin/Globulin Ratio 1.3 Lipase 740 H 11/16/18 11/16/18 04:32 11:30 WBC RBC Hgb Hct MCV MCH MCHC RDW Plt Count Lymph % (Auto) [place] % (Auto) Eos % (Auto) Baso % (Auto) Lymph # Linn # Eos # Baso # Add Manual Diff Total Counted Seg Neutrophils % Seg Neuts % (Manual) Band Neutrophils % Lymphocytes % (Manual) Reactive Lymphs % (Man) Monocytes % (Manual) Eosinophils % (Manual) Basophils % (Manual) Metamyelocytes % Myelocytes % Promyelocytes % Blast Cells % Nucleated RBC % Seg Neutrophils # Seg Neutrophils # Man Band Neutrophils # Lymphocytes # (Manual) Abs React Lymphs (Man) Monocytes # (Manual) Eosinophils # (Manual) Basophils # (Manual) Metamyelocytes # Myelocytes # Promyelocytes # Blast Cells # WBC Morphology Hypersegmented Neuts Hyposegmented Neuts Hypogranular Neuts Smudge Cells Toxic Granulation Toxic Vacuolation Dohle Bodies Pelger-Huet Anomaly Mary Lou Rods Platelet Estimate Clumped Platelets Plt Clumps, EDTA Large Platelets Giant Platelets Platelet Satelliting Plt Morphology Comment RBC Morphology Dimorphic RBCs Polychromasia Hypochromasia Poikilocytosis Anisocytosis Microcytosis Macrocytosis Spherocytes Pappenheimer Bodies Sickle Cells Target Cells Tear Drop Cells Ovalocytes Helmet Cells [place] Bodies [place] Rings [place] Cells Bite Cells Crenated Cell Elliptocytes Acanthocytes (Spur) Rouleaux Hemoglobin C Crystals Schistocytes Malaria parasites Sigifredo Bodies Hem Pathologist Commnt Sodium Potassium Chloride Carbon Dioxide Anion Gap BUN Creatinine Estimated GFR BUN/Creatinine Ratio Glucose Lactic Acid 1.20 Calcium Total Bilirubin 7.80 H Direct Bilirubin 6.6 H Indirect Bilirubin 1.2 AST 33 ALT 22 Alkaline Phosphatase 315 H Total Protein 6.8 Albumin 3.8 L Albumin/Globulin Ratio 1.3 Lipase Assessment and Plan 1.acute pancreatitis s/p ERCP (11/15/17) -afebrile -WBC WNL -lipase 740 -T.ayana 7.80, AST 33, ALT 22, alk phos 315 -abd CT w/o acute findings (pancreas normal) -clinically, patient is stable. Reports contined upper abd pain and nausea. No vomiting. -CRP in am -Keep NPO for now -continue to trend labs and supportive care with IVF, pain control, antiemetics, etc. -will follow
[2018-11-16 16:16] LABS: Hepatitis B Surface Antigen Non-Reactive (Negative); Hepatitis C Virus Antibody Non-Reactive (NonReactive)
[2018-11-17] MEDS: HumuLIN R SUB-Q SCH ×6 (01:25→23:01)
[2018-11-17] MEDS: ZOFRAN IV PRN ×3 (03:40→15:19)
[2018-11-17] MEDS: DILAUDID IV PRN ×3 (03:40→21:23)
[2018-11-17 06:13] LABS: Hematocrit 33.9 % (30.3-42.9); Hemoglobin 11.2 gm/dl (10.1-14.3); Mean Corpuscular HGB Conc 33 % (30-34); Mean Corpuscular Volume 72 fl (79-97); Red Blood Count 4.71 M/mm3 (3.65-5.03); Red Cell Distribution Width 19.9 % (13.2-15.2)
[2018-11-17 06:15] LABS: Platelet Count 193 K/mm3 (140-440)
[2018-11-17 06:50] LABS: Albumin 3.9 g/dL (3.9-5); Calcium 9.3 mg/dL (8.4-10.2)
[2018-11-17 06:52] LABS: C-Reactive Protein 4.2 mg/dL (0.00-1.30)
[2018-11-17 07:25] LABS: Total Cells Counted 100
[2018-11-17 07:28] LABS: Anisocytosis 1+; Hypochromasia 1+; Ovalocytes Few; Poikilocytosis 1+; Target Cells 2+
[2018-11-17 07:29] LABS: Platelet Estimate Consistent w Auto
--- NOTE | 2018-11-17 08:12 | Progress Note ---
Assessment and Plan - Patient Problems (1) ESRD (end stage renal disease) Current Visit: Yes Status: Acute Plan to address problem: We have written orders to maintain patient on TTS schedule as an inpatient. (2) Pancreatitis Current Visit: Yes Status: Acute Plan to address problem: Patient nothing by mouth at present time. In regards to IV fluid hydration, I would recommend that in this anuric patient we hydrate no more than than 1-1.5L of fluid in a 24-hour time period. This is to avoid volume overload. Recommend that fluids be run at 50-75 mL an hour. F/U with GI recommendations in regards to advancement of diet as tolerated. (3) S/P ERCP Current Visit: Yes Status: Acute Plan to address problem: Further recommendations per GI. (4) Hypertensive chronic kidney disease with stage 5 chronic kidney disease or end stage renal disease Current Visit: No Status: Acute Plan to address problem: Continue current regimen,and will closely monitor. (5) Type 2 diabetes mellitus with diabetic chronic kidney disease Current Visit: No Status: Chronic Qualifiers: Chronic kidney disease stage: on chronic dialysis Plan to address problem: Continue patient's current home regimen. Further monitoring and management per primary attending. (6) Nausea & vomiting Current Visit: No Status: Acute Plan to address problem: Medical management per primary team. Subjective Date of service: 11/17/18 Interval history: Continues to have nausea overnight. She is about done with her 1L bag of LR which was running at 75 cc/hr. Her lipase levels have decreased from 720 to 90. Her abdominal pain has improved, but she remains with complaints of nausea and dry heaving. She tolerated HD yesterday. Labs noted and no acute HD needs today. Objective - Vital Signs Vital signs: Vital Signs - 12hr 11/16/18 11/16/18 11/16/18 22:14 22:15 23:08 Temperature 98.1 F Pulse Rate 71 71 75 Respiratory 16 Rate Blood Pressure 111/60 111/60 139/71 O2 Sat by Pulse 96 Oximetry 11/17/18 11/17/18 03:40 05:12 Temperature 98.0 F Pulse Rate 66 Respiratory 18 16 Rate Blood Pressure 100/42 O2 Sat by Pulse 90 Oximetry - General Appearance General appearance: well-developed, appears stated age, fatigue EENT: ATNC, PERRL Neck: no JVD, no thyromegaly Respiratory: Present: Clear to Ascultation Cardiology: regular, S1S2 Gastrointestinal: normal, normoactive bowel sounds Integumentary: no rash Neurologic: no focal deficit, no asterixis, alert and oriented x3 Musculoskeletal: other (-edema ) Psychiatric: mood/affect appropriate, cooperative - Lab 11/17/18 04:35 11/17/18 04:35 Most recent lab results Calcium 9.3 mg/dL (8.4-10.2) 11/17/18 04:35 - Imaging CT scan - abdomen: report reviewed - Allied health notes Allied health notes reviewed: nursing Medications & Allergies - Medications Allergies/Adverse Reactions: Allergies amlodipine Allergy (Verified 08/02/17 10:42) Itching losartan Allergy (Verified 08/02/17 10:42) Itching sulfamethoxazole [From Bactrim] Allergy (Verified 08/02/17 10:42) Rash trimethoprim [From Bactrim] Allergy (Verified 08/02/17 10:42) Rash morphine Adverse Reaction (Verified 08/02/17 10:42) Vomiting Home Medications: Home Medications Medication Instructions Recorded Confirmed Last Taken Type Insulin Glargine [Lantus VIAL] 10 unit SUB-Q QHS 08/02/17 11/16/18 3 Days Ago History ~02/25/18 Insulin Lispro [HumaLOG VIAL] 8 units SQ BID 08/02/17 11/16/18 3 Days Ago History ~02/25/18 Labetalol [Normodyne TAB] 200 mg PO BID 08/02/17 11/16/18 3 Days Ago History ~02/25/18 Torsemide [Demadex] 60 mg PO BID 08/02/17 11/16/18 3 Days Ago History ~02/25/18 cloNIDine [Catapres] 0.2 mg PO BID 08/02/17 11/16/18 3 Days Ago History ~02/25/18 Zolpidem [Ambien] 5 mg PO QHS PRN #7 tablet 03/02/18 11/16/18 Unknown Rx levoFLOXacin [Levaquin TAB] 500 mg PO Q48H #7 tablet 03/02/18 11/16/18 Unknown Rx metroNIDAZOLE [Flagyl TAB] 500 mg PO Q8H #21 tablet 03/02/18 11/16/18 Unknown Rx Active Medications: Generic Name Dose Route Start Last Admin Trade Name Freq PRN Reason Stop Dose Admin Acetaminophen 650 mg 11/16/18 04:57 Tylenol [place] Q4H PRN Fever >101 Albumin Human 12.5 gm 11/16/18 09:47 Alburx 25% (Albumin) IV FRANCOIS PRN Hypotension Clonidine HCl 0.2 mg 11/16/18 10:00 11/16/18 22:14 Catapres PO Not Given BID [facility] Dextrose 50 ml 11/16/18 05:01 D50w (25gm) Syringe IV PRN PRN Hypoglycemia Hydromorphone HCl 1 mg 11/16/18 04:55 11/17/18 03:40 Dilaudid IV 1 mg Q4H PRN Administration Pain , Severe (7-10) Lactated Ringer's 1,000 mls @ 75 mls/hr 11/16/18 10:00 11/16/18 16:12 Lactated Ringers IV 75 mls/hr DIRECT FATMATA Administration Sodium Chloride 100 mls @ 999 mls/hr 11/16/18 09:47 Nacl 0.9% IV FRANCOIS PRN Hypotension Insulin Human Regular 0 units 11/16/18 06:00 11/17/18 06:00 Humulin R SUB-Q Not Given Q4H [facility] Protocol Labetalol HCl 200 mg 11/16/18 10:00 11/16/18 22:15 Normodyne PO Not Given BID [facility] Ondansetron HCl 4 mg 11/16/18 04:56 11/17/18 03:40 Zofran IV 4 mg Q8H PRN Administration Nausea And Vomiting Zolpidem Tartrate 5 mg 11/16/18 04:58 Ambien PO QHS PRN Sleep
--- NOTE | 2018-11-17 08:46 | Progress Note ---
Assessment and Plan Assessment and plan: Acute pancreatitis post ERCP started on clear liquid diet Ringers lactate Diabetes accuchek qac and hs Hypertension. Monitor blood pressure. End-stage renal disease on hemodialysis nephrology managing. Full code status History Interval history: Feels better Less abdominal pain No more vomiting nausea Hospitalist Physical - Physical exam Narrative exam: GEN: Not in acute distress,lying in bed HEENT: Normocephalic, atraumatic, Neck: supple, No JVD Lungs: Clear to auscultation, no wheeze Heart:S1 and S2 regular, no murmurs, rubs or gallop, Abd:soft, non tender, non distended, normal bowel sounds Ext: No edema, no clubbing or cyanosis Neuro: Awake,alert, oriented x 3, No focal signs Psych:Normal mood - Constitutional Vitals: Temp Pulse Resp BP Pulse Ox 98.0 F 66 16 100/42 90 11/17/18 05:12 11/17/18 05:12 11/17/18 05:12 11/17/18 05:12 11/17/18 05:12 Results - Labs CBC & Chem 7: 11/17/18 04:35 11/17/18 04:35 Labs: Laboratory Last Values WBC 7.7 K/mm3 (4.5-11.0) 11/17/18 04:35 RBC 4.71 M/mm3 (3.65-5.03) 11/17/18 04:35 Hgb 11.2 gm/dl (10.1-14.3) 11/17/18 04:35 Hct 33.9 % (30.3-42.9) 11/17/18 04:35 MCV 72 fl (79-97) L 11/17/18 04:35 MCH 24 pg (28-32) L 11/17/18 04:35 MCHC 33 % (30-34) 11/17/18 04:35 RDW 19.9 % (13.2-15.2) H 11/17/18 04:35 Plt Count 193 K/mm3 (140-440) 11/17/18 04:35 Lymph % (Auto) Movie Machine Operator 11/16/18 00:09 [place] % (Auto) Movie Machine Operator 11/16/18 00:09 Eos % (Auto) Movie Machine Operator 11/16/18 00:09 Baso % (Auto) Movie Machine Operator 11/16/18 00:09 Lymph # Movie Machine Operator 11/16/18 00:09 [place] # Movie Machine Operator 11/16/18 00:09 Eos # Movie Machine Operator 11/16/18 00:09 Baso # Movie Machine Operator 11/16/18 00:09 Add Manual Diff Complete 11/17/18 04:35 Total Counted 100 11/17/18 04:35 Seg Neutrophils % Movie Machine Operator 11/16/18 00:09 Seg Neuts % (Manual) 67.0 % (40.0-70.0) 11/17/18 04:35 Band Neutrophils % 0 % 11/17/18 04:35 Lymphocytes % (Manual) 24.0 % (13.4-35.0) 11/17/18 04:35 Reactive Lymphs % (Man) 0 % 11/17/18 04:35 Monocytes % (Manual) 4.0 % (0.0-7.3) 11/17/18 04:35 Eosinophils % (Manual) 3.0 % (0.0-4.3) 11/17/18 04:35 Basophils % (Manual) 2.0 % (0.0-1.8) H 11/17/18 04:35 Metamyelocytes % 0 % 11/17/18 04:35 Myelocytes % 0 % 11/17/18 04:35 Promyelocytes % 0 % 11/17/18 04:35 Blast Cells % 0 % 11/17/18 04:35 Nucleated RBC % Not Reportable 11/17/18 04:35 Seg Neutrophils # Movie Machine Operator 11/16/18 00:09 Seg Neutrophils # Man 5.2 K/mm3 (1.8-7.7) 11/17/18 04:35 Band Neutrophils # 0.0 K/mm3 11/17/18 04:35 Lymphocytes # (Manual) 1.8 K/mm3 (1.2-5.4) 11/17/18 04:35 Abs React Lymphs (Man) 0.0 K/mm3 11/17/18 04:35 Monocytes # (Manual) 0.3 K/mm3 (0.0-0.8) 11/17/18 04:35 Eosinophils # (Manual) 0.2 K/mm3 (0.0-0.4) 11/17/18 04:35 Basophils # (Manual) 0.2 K/mm3 (0.0-0.1) H 11/17/18 04:35 Metamyelocytes # 0.0 K/mm3 11/17/18 04:35 Myelocytes # 0.0 K/mm3 11/17/18 04:35 Promyelocytes # 0.0 K/mm3 11/17/18 04:35 Blast Cells # 0.0 K/mm3 11/17/18 04:35 WBC Morphology Not Reportable 11/17/18 04:35 Hypersegmented Neuts Not Reportable 11/17/18 04:35 Hyposegmented Neuts Not Reportable 11/17/18 04:35 Hypogranular Neuts Not Reportable 11/17/18 04:35 Smudge Cells Not Reportable 11/17/18 04:35 Toxic Granulation Not Reportable 11/17/18 04:35 Toxic Vacuolation Not Reportable 11/17/18 04:35 Dohle Bodies Not Reportable 11/17/18 04:35 Pelger-Huet Anomaly Not Reportable 11/17/18 04:35 Mary Lou Rods Not Reportable 11/17/18 04:35 Platelet Estimate Consistent w auto 11/17/18 04:35 Clumped Platelets Not Reportable 11/17/18 04:35 Plt Clumps, EDTA Not Reportable 11/17/18 04:35 Large Platelets Not Reportable 11/17/18 04:35 Giant Platelets Not Reportable 11/17/18 04:35 Platelet Satelliting Not Reportable 11/17/18 04:35 Plt Morphology Comment Not Reportable 11/17/18 04:35 RBC Morphology Not Reportable 11/17/18 04:35 Dimorphic RBCs Not Reportable 11/17/18 04:35 Polychromasia Not Reportable 11/17/18 04:35 Hypochromasia 1+ 11/17/18 04:35 Poikilocytosis 1+ 11/17/18 04:35 Anisocytosis 1+ 11/17/18 04:35 Microcytosis Not Reportable 11/17/18 04:35 Macrocytosis Not Reportable 11/17/18 04:35 Spherocytes Not Reportable 11/17/18 04:35 Pappenheimer Bodies Not Reportable 11/17/18 04:35 Sickle Cells Not Reportable 11/17/18 04:35 Target Cells 2+ 11/17/18 04:35 Tear Drop Cells Not Reportable 11/17/18 04:35 Ovalocytes Few 11/17/18 04:35 Helmet Cells Not Reportable 11/17/18 04:35 Nelson-[place] Bodies Not Reportable 11/17/18 04:35 [place] Rings Not Reportable 11/17/18 04:35 [place] Cells Not Reportable 11/17/18 04:35 Bite Cells Not Reportable 11/17/18 04:35 Crenated Cell Not Reportable 11/17/18 04:35 Elliptocytes Not Reportable 11/17/18 04:35 Acanthocytes (Spur) Not Reportable 11/17/18 04:35 Rouleaux Not Reportable 11/17/18 04:35 Hemoglobin C Crystals Not Reportable 11/17/18 04:35 Schistocytes Not Reportable 11/17/18 04:35 Malaria parasites Not Reportable 11/17/18 04:35 Sigifredo Bodies Not Reportable 11/17/18 04:35 Hem Pathologist Commnt No 11/17/18 04:35 Sodium 137 mmol/L (137-145) 11/17/18 04:35 Potassium 4.3 mmol/L (3.6-5.0) 11/17/18 04:35 Chloride 92.4 mmol/L (98-107) L 11/17/18 04:35 Carbon Dioxide 25 mmol/L (22-30) 11/17/18 04:35 Anion Gap 24 mmol/L 11/17/18 04:35 BUN 25 mg/dL (7-17) H 11/17/18 04:35 Creatinine 4.1 mg/dL (0.7-1.2) H 11/17/18 04:35 Estimated GFR 14 ml/min 11/17/18 04:35 BUN/Creatinine Ratio 6 % 11/17/18 04:35 Glucose 147 mg/dL (65-100) H 11/17/18 04:35 POC Glucose 163 (70-105) H 11/17/18 05:15 Lactic Acid 1.20 mmol/L (0.7-2.0) 11/16/18 04:32 Calcium 9.3 mg/dL (8.4-10.2) 11/17/18 04:35 Total Bilirubin 9.50 mg/dL (0.1-1.2) H 11/17/18 04:35 Direct Bilirubin 6.6 mg/dL (0-0.2) H 11/16/18 11:30 Indirect Bilirubin 1.2 mg/dL 11/16/18 11:30 AST 39 units/L (5-40) 11/17/18 04:35 ALT 24 units/L (7-56) 11/17/18 04:35 Alkaline Phosphatase 320 units/L (35-129) H 11/17/18 04:35 C-Reactive Protein 4.20 mg/dL (0.00-1.30) H 11/17/18 04:35 Total Protein 7.3 g/dL (6.3-8.2) 11/17/18 04:35 Albumin 3.9 g/dL (3.9-5) 11/17/18 04:35 Albumin/Globulin Ratio 1.1 % 11/17/18 04:35 Lipase 92 units/L (13-60) H 11/17/18 04:35 Hepatitis A IgM Ab Non-reactive (NonReactive) 11/16/18 Unknown Hep Bs Antigen Non-reactive (Negative) 11/16/18 Unknown Hep B Core IgM Ab Non-reactive (NonReactive) 11/16/18 Unknown Hepatitis C Antibody Non-reactive (NonReactive) 11/16/18 Unknown
[2018-11-17] MEDS: CATAPRES PO SCH ×2 (10:16→21:23)
[2018-11-17] MEDS: NORMODYNE PO SCH ×2 (10:16→21:23)
[2018-11-17] MEDS: HEPARIN SUB-Q SCH ×2 (10:16→21:24)
--- NOTE | 2018-11-17 10:17 | Gastroenterology Progress Note ---
Addendum entered and electronically signed by JAHAIRA TOUSSAINT MD 11/17/18 17:06: Patient seen and examined on 11/17/2018. Agree with A/P and recommendations as stated. Clinically improving with abdominal pain improving.wbc, lactate level normal. lipase coming down. Original Note: Assessment and Plan 1.acute pancreatitis s/p ERCP (11/15/17) -afebrile -WBC WNL -lipase 92-trending down -T.ayana 9.50, AST 39, ALT 24, alk phos 320 -CRP 4.20 -abd CT w/o acute findings (pancreas normal) -clinically, patient reports feeling better today with abd pain improving. Has some mild continued nausea but no vomiting. -okay for ice chips for now, if tolerates can trial on clear liquids for dinner -continue to trend labs and supportive care with IVF, pain control, antiemetics, etc. -will follow Subjective Date of service: 11/17/18 Principal diagnosis: abdominal pain Interval history: Patient resting in bed this am w/o acute distress. Reports feeling better today with abd pain improving. C/o nausea but no vomiting. Objective - Constitutional Vitals: Temp Pulse Resp BP Pulse Ox 98.0 F 66 16 100/42 90 11/17/18 05:12 11/17/18 05:12 11/17/18 05:12 11/17/18 05:12 11/17/18 05:12 General appearance: no acute distress - Respiratory Respiratory: bilateral: CTA - Cardiovascular Rhythm: regular Heart Sounds: Present: S1 & S2 - Gastrointestinal General gastrointestinal: Present: soft, non-tender, non-distended, normal bowel sounds - Neurologic Neurological: alert and oriented x3 - Labs CBC & Chem 7: 11/17/18 04:35 11/17/18 04:35 Labs: Laboratory Results - last 24 hr 11/16/18 11/16/18 11/16/18 11:30 23:27 Unknown WBC RBC Hgb Hct MCV MCH MCHC RDW Plt Count Add Manual Diff Total Counted Seg Neuts % (Manual) Band Neutrophils % Lymphocytes % (Manual) Reactive Lymphs % (Man) Monocytes % (Manual) Eosinophils % (Manual) Basophils % (Manual) Metamyelocytes % Myelocytes % Promyelocytes % Blast Cells % Nucleated RBC % Seg Neutrophils # Man Band Neutrophils # Lymphocytes # (Manual) Abs React Lymphs (Man) Monocytes # (Manual) Eosinophils # (Manual) Basophils # (Manual) Metamyelocytes # Myelocytes # Promyelocytes # Blast Cells # WBC Morphology Hypersegmented Neuts Hyposegmented Neuts Hypogranular Neuts Smudge Cells Toxic Granulation Toxic Vacuolation Dohle Bodies Pelger-Huet Anomaly Mary Lou Rods Platelet Estimate Clumped Platelets Plt Clumps, EDTA Large Platelets Giant Platelets Platelet Satelliting Plt Morphology Comment RBC Morphology Dimorphic RBCs Polychromasia Hypochromasia Poikilocytosis Anisocytosis Microcytosis Macrocytosis Spherocytes Pappenheimer Bodies Sickle Cells Target Cells Tear Drop Cells Ovalocytes Helmet Cells [place] Bodies [place] Rings [place] Cells Bite Cells Crenated Cell Elliptocytes Acanthocytes (Spur) Rouleaux Hemoglobin C Crystals Schistocytes Malaria parasites Sigifredo Bodies Hem Pathologist Commnt Sodium Potassium Chloride Carbon Dioxide Anion Gap BUN Creatinine Estimated GFR BUN/Creatinine Ratio Glucose POC Glucose 143 H Calcium Total Bilirubin 7.80 H Direct Bilirubin 6.6 H Indirect Bilirubin 1.2 AST 33 ALT 22 Alkaline Phosphatase 315 H C-Reactive Protein Total Protein 6.8 Albumin 3.8 L Albumin/Globulin Ratio 1.3 Lipase Hepatitis A IgM Ab Non-reactive Hep Bs Antigen Non-reactive Hep B Core IgM Ab Non-reactive Hepatitis C Antibody Non-reactive 11/17/18 11/17/18 11/17/18 04:35 04:35 05:15 WBC 7.7 RBC 4.71 Hgb 11.2 Hct 33.9 MCV 72 L MCH 24 L MCHC 33 RDW 19.9 H Plt Count 193 Add Manual Diff Complete Total Counted 100 Seg Neuts % (Manual) 67.0 Band Neutrophils % 0 Lymphocytes % (Manual) 24.0 Reactive Lymphs % (Man) 0 Monocytes % (Manual) 4.0 Eosinophils % (Manual) 3.0 Basophils % (Manual) 2.0 H Metamyelocytes % 0 Myelocytes % 0 Promyelocytes % 0 Blast Cells % 0 Nucleated RBC % Not Reportable Seg Neutrophils # Man 5.2 Band Neutrophils # 0.0 Lymphocytes # (Manual) 1.8 Abs React Lymphs (Man) 0.0 Monocytes # (Manual) 0.3 Eosinophils # (Manual) 0.2 Basophils # (Manual) 0.2 H Metamyelocytes # 0.0 Myelocytes # 0.0 Promyelocytes # 0.0 Blast Cells # 0.0 WBC Morphology Not Reportable Hypersegmented Neuts Not Reportable Hyposegmented Neuts Not Reportable Hypogranular Neuts Not Reportable Smudge Cells Not Reportable Toxic Granulation Not Reportable Toxic Vacuolation Not Reportable Dohle Bodies Not Reportable Pelger-Huet Anomaly Not Reportable Mary Lou Rods Not Reportable Platelet Estimate Consistent w auto Clumped Platelets Not Reportable Plt Clumps, EDTA Not Reportable Large Platelets Not Reportable Giant Platelets Not Reportable Platelet Satelliting Not Reportable Plt Morphology Comment Not Reportable RBC Morphology Not Reportable Dimorphic RBCs Not Reportable Polychromasia Not Reportable Hypochromasia 1+ Poikilocytosis 1+ Anisocytosis 1+ Microcytosis Not Reportable Macrocytosis Not Reportable Spherocytes Not Reportable Pappenheimer Bodies Not Reportable Sickle Cells Not Reportable Target Cells 2+ Tear Drop Cells Not Reportable Ovalocytes Few Helmet Cells Not Reportable Nelson-[place] Bodies Not Reportable [place] Rings Not Reportable [place] Cells Not Reportable Bite Cells Not Reportable Crenated Cell Not Reportable Elliptocytes Not Reportable Acanthocytes (Spur) Not Reportable Rouleaux Not Reportable Hemoglobin C Crystals Not Reportable Schistocytes Not Reportable Malaria parasites Not Reportable Sigifredo Bodies Not Reportable Hem Pathologist Commnt No Sodium 137 Potassium 4.3 Chloride 92.4 L Carbon Dioxide 25 Anion Gap 24 BUN 25 H Creatinine 4.1 H Estimated GFR 14 BUN/Creatinine Ratio 6 Glucose 147 H POC Glucose 163 H Calcium 9.3 Total Bilirubin 9.50 H Direct Bilirubin Indirect Bilirubin AST 39 ALT 24 Alkaline Phosphatase 320 H C-Reactive Protein 4.20 H Total Protein 7.3 Albumin 3.9 Albumin/Globulin Ratio 1.1 Lipase 92 H Hepatitis A IgM Ab Hep Bs Antigen Hep B Core IgM Ab Hepatitis C Antibody
[2018-11-18] MEDS: DILAUDID IV PRN (05:18)
[2018-11-18] MEDS: ZOFRAN IV PRN (05:20)
[2018-11-18 06:41] LABS: Hematocrit 32.6 % (30.3-42.9); Hemoglobin 10.6 gm/dl (10.1-14.3); Mean Corpuscular HGB Conc 33 % (30-34); Mean Corpuscular Volume 72 fl (79-97); Red Blood Count 4.54 M/mm3 (3.65-5.03); Red Cell Distribution Width 19.5 % (13.2-15.2)
[2018-11-18 07:05] LABS: Albumin 3.8 g/dL (3.9-5); Calcium 8.7 mg/dL (8.4-10.2)
[2018-11-18 07:12] LABS: C-Reactive Protein 3.8 mg/dL (0.00-1.30)
[2018-11-18] MEDS: HumuLIN R SUB-Q SCH ×3 (08:38→18:49)
[2018-11-18 09:10] LABS: Basophils % (Manual) 0 % (0.0-1.8); Eosinophils % (Manual) 0 % (0.0-4.3); Total Cells Counted 100
[2018-11-18 09:11] LABS: Hypochromasia 2+; Platelet Estimate Consistent w Auto; Target Cells 2+
[2018-11-18] MEDS ORDERED: BENADRYL PO PRN (09:12)
[2018-11-18 09:15] LABS: Platelet Count 183 K/mm3 (140-440)
[2018-11-18] MEDS: HEPARIN SUB-Q SCH (09:54)
[2018-11-18] MEDS: NORMODYNE PO SCH (09:54)
[2018-11-18] MEDS: CATAPRES PO SCH (09:55)
--- NOTE | 2018-11-18 12:13 | Progress Note ---
Assessment and Plan - Patient Problems (1) ESRD (end stage renal disease) Current Visit: Yes Status: Acute Plan to address problem: We have written orders to maintain patient on TTS schedule as an inpatient. (2) Pancreatitis Current Visit: Yes Status: Acute Plan to address problem: Lipase levels have improved, and she is tolerating liquid diet. Continue to monitor. F/U further GI recommendations. (3) S/P ERCP Current Visit: Yes Status: Acute Plan to address problem: Further recommendations per GI. (4) Hypertensive chronic kidney disease with stage 5 chronic kidney disease or end stage renal disease Current Visit: No Status: Acute Plan to address problem: Continue current regimen,and will closely monitor. (5) Type 2 diabetes mellitus with diabetic chronic kidney disease Current Visit: No Status: Chronic Qualifiers: Chronic kidney disease stage: on chronic dialysis Plan to address problem: Continue patient's current home regimen. Further monitoring and management per primary attending. (6) Nausea & vomiting Current Visit: No Status: Acute Plan to address problem: Medical management per primary team. Subjective Date of service: 11/18/18 Principal diagnosis: abdominal pain Interval history: No acute events overnight. Slowly tolerating liquid diet. Nausea is improving as well as abdominal pain. Objective - Vital Signs Vital signs: Vital Signs - 12hr 11/18/18 11/18/18 11/18/18 00:28 04:33 05:15 Temperature 99.0 F Pulse Rate 64 75 68 Respiratory 18 20 18 Rate Blood Pressure 104/54 136/72 O2 Sat by Pulse 94 90 97 Oximetry - General Appearance General appearance: well-developed, well-nourished, appears stated age EENT: ATNC, PERRL Neck: no JVD, no thyromegaly Respiratory: Present: Clear to Ascultation, Normal Exam Cardiology: regular, normal heart rate, S1S2 Gastrointestinal: normal, normoactive bowel sounds Integumentary: no rash, warm and dry Neurologic: no focal deficit, no asterixis Psychiatric: mood/affect appropriate, cooperative - Lab 11/18/18 06:20 11/18/18 06:20 Most recent lab results Calcium 8.7 mg/dL (8.4-10.2) 11/18/18 06:20 - Allied health notes Allied health notes reviewed: nursing Medications & Allergies - Medications Allergies/Adverse Reactions: Allergies amlodipine Allergy (Verified 08/02/17 10:42) Itching losartan Allergy (Verified 08/02/17 10:42) Itching sulfamethoxazole [From Bactrim] Allergy (Verified 08/02/17 10:42) Rash trimethoprim [From Bactrim] Allergy (Verified 08/02/17 10:42) Rash morphine Adverse Reaction (Verified 08/02/17 10:42) Vomiting Home Medications: Home Medications Medication Instructions Recorded Confirmed Last Taken Type Insulin Glargine [Lantus VIAL] 10 unit SUB-Q QHS 08/02/17 11/16/18 3 Days Ago History ~02/25/18 Insulin Lispro [HumaLOG VIAL] 8 units SQ BID 08/02/17 11/16/18 3 Days Ago History ~02/25/18 Labetalol [Normodyne TAB] 200 mg PO BID 08/02/17 11/16/18 3 Days Ago History ~02/25/18 Torsemide [Demadex] 60 mg PO BID 08/02/17 11/16/18 3 Days Ago History ~02/25/18 cloNIDine [Catapres] 0.2 mg PO BID 08/02/17 11/16/18 3 Days Ago History ~02/25/18 Zolpidem [Ambien] 5 mg PO QHS PRN #7 tablet 03/02/18 11/16/18 Unknown Rx levoFLOXacin [Levaquin TAB] 500 mg PO Q48H #7 tablet 03/02/18 11/16/18 Unknown Rx metroNIDAZOLE [Flagyl TAB] 500 mg PO Q8H #21 tablet 03/02/18 11/16/18 Unknown Rx Active Medications: Generic Name Dose Route Start Last Admin Trade Name Freq PRN Reason Stop Dose Admin Acetaminophen 650 mg 11/16/18 04:57 Tylenol ND Q4H PRN Fever >101 Albumin Human 12.5 gm 11/16/18 09:47 Alburx 25% (Albumin) IV FRANCOIS PRN Hypotension Clonidine HCl 0.2 mg 11/16/18 10:00 11/18/18 09:55 Catapres PO Not Given BID FATMATA Dextrose 50 ml 11/16/18 05:01 D50w (25gm) Syringe IV PRN PRN Hypoglycemia Diphenhydramine HCl 25 mg 11/18/18 09:12 11/18/18 09:28 Benadryl PO 25 mg Q6H PRN Administration Itching Heparin Sodium (Porcine) 5,000 unit 11/17/18 10:00 11/18/18 09:54 Heparin SUB-Q Not Given Q12HR [facility] Hydromorphone HCl 1 mg 11/16/18 04:55 11/18/18 05:18 Dilaudid IV 1 mg Q4H PRN Administration Pain , Severe (7-10) Sodium Chloride 100 mls @ 999 mls/hr 11/16/18 09:47 Nacl 0.9% IV FRANCOIS PRN Hypotension Insulin Human Regular 0 units 11/17/18 22:00 11/18/18 08:38 Humulin R SUB-Q 2 units ACHS FATMATA Administration Protocol Labetalol HCl 200 mg 11/16/18 10:00 11/18/18 09:54 Normodyne PO Not Given BID [facility] Ondansetron HCl 4 mg 11/16/18 04:56 11/18/18 05:20 Zofran IV 4 mg Q8H PRN Administration Nausea And Vomiting Zolpidem Tartrate 5 mg 11/16/18 04:58 Ambien PO QHS PRN Sleep
--- NOTE | 2018-11-18 14:49 | Discharge Summary ---
Providers - Providers Date of Admission: 11/16/18 04:51 Date of discharge: 11/18/18 Attending physician: BELINDA DELCID 11/16/18 04:23 Consult to Physician [CONS] Stat Comment: Dr. Gaston spoke with Dr. Munson @ 0419 Consulting Provider: JAHAIRA MUNSON Physician Instructions: Reason For Exam: abdominal pain 11/16/18 05:40 Consult to Physician [CONS] Routine Comment: Consulting Provider: MERLE TAO Physician Instructions: Reason For Exam: ESRD ON DIALYSIS Primary care physician: JORGE GIL Hospitalization Condition: Fair Hospital course: Patient is 53 yo with ESRD on dialysis, presented with abdominal pain after ERCP on 11/15/18. She was evaluated in ED and diagnosed with acute pancreatitis due to ERCP. Lipase levl was 740, very high. She was evaluated by GI and Nephrology. She was made NPO started on iv fluids. Abdominal pain subsided and she was discharged home on 11/18/18. Total time spent on discharge, 33 mins. Disposition: TO HOME OR SELFCARE - Discharge Diagnoses (1) Acute pancreatitis Status: Acute (2) Abdominal pain Status: Acute (3) HLD (hyperlipidemia) Status: Acute (4) ESRD (end stage renal disease) Status: Chronic (5) HLD (hyperlipidemia) Status: Chronic Qualifiers: (6) HTN (hypertension) Status: Chronic Qualifiers: (7) IDDM (insulin dependent diabetes mellitus) Status: Chronic Core Measure Documentation - Palliative Care Palliative Care/ Comfort Measures: Not Applicable - Core Measures Any of the following diagnoses?: none Exam - Constitutional Vitals: Temp Pulse Resp BP Pulse Ox 98.2 F 72 18 134/74 97 11/18/18 14:18 11/18/18 14:18 11/18/18 14:18 11/18/18 14:18 11/18/18 05:15 Plan Activity: advance as tolerated Diet: other (GI soft, low fat, Renal diet) Additional Instructions: 1.Follow up with PCP in 1 week. 2.Follow up with JOE Joyce in 1 week. 3.Continue routine hemodialysis Follow up with: JORGE GIL MD [Primary Care Provider] - 3-5 Days Forms: Work/School Release Form
[2018-11-18 16:43] VITALS: BP 117/55
--- NOTE | 2018-11-18 16:53 | Gastroenterology Progress Note ---
Assessment and Plan 1. Post-ERCP pancreatitis - clinically improving; tolerating clears. advance as tolerated. if tolerates advanced diet, can be discharged from gi stand point. Will sign off, please call as needed Subjective Date of service: 11/18/18 Principal diagnosis: abdominal pain Interval history: pt seen and examined. tolerating clears. abd pain improving. no n/v episodes today. Objective - Constitutional Vitals: Temp Pulse Resp BP Pulse Ox 98.5 F 74 14 117/55 94 11/18/18 16:33 11/18/18 16:33 11/18/18 16:33 11/18/18 16:33 11/18/18 16:33 General appearance: no acute distress - Respiratory Respiratory effort: normal Respiratory: bilateral: CTA - Cardiovascular Rhythm: regular Heart Sounds: Present: S1 & S2 - Extremities Extremities: No edema - Gastrointestinal General gastrointestinal: Present: soft, non-tender, non-distended - Neurologic Neurological: alert and oriented x3 - Psychiatric Psychiatric: appropriate mood/affect - Labs CBC & Chem 7: 11/18/18 06:20 11/18/18 06:20 Labs: Laboratory Results - last 24 hr 11/17/18 11/18/18 11/18/18 17:30 06:20 06:20 WBC 6.1 RBC 4.54 Hgb 10.6 Hct 32.6 MCV 72 L MCH 23 L MCHC 33 RDW 19.5 H Plt Count 183 Lymph % (Auto) Infusion Rn Baso % (Auto) Infusion Rn Add Manual Diff Complete Total Counted 100 Seg Neutrophils % Infusion Rn Seg Neuts % (Manual) 73.0 H Band Neutrophils % 0 Lymphocytes % (Manual) 16.0 Reactive Lymphs % (Man) 1.0 Monocytes % (Manual) 10.0 H Eosinophils % (Manual) 0 Basophils % (Manual) 0 Metamyelocytes % 0 Myelocytes % 0 Promyelocytes % 0 Blast Cells % 0 Nucleated RBC % Not Reportable Seg Neutrophils # Man 4.5 Band Neutrophils # 0.0 Lymphocytes # (Manual) 1.0 L Abs React Lymphs (Man) 0.1 Monocytes # (Manual) 0.6 Eosinophils # (Manual) 0.0 Basophils # (Manual) 0.0 Metamyelocytes # 0.0 Myelocytes # 0.0 Promyelocytes # 0.0 Blast Cells # 0.0 WBC Morphology Not Reportable Hypersegmented Neuts Not Reportable Hyposegmented Neuts Not Reportable Hypogranular Neuts Not Reportable Smudge Cells Not Reportable Toxic Granulation Not Reportable Toxic Vacuolation Not Reportable Dohle Bodies Not Reportable Pelger-Huet Anomaly Not Reportable Mary Lou Rods Not Reportable Platelet Estimate Consistent w auto Clumped Platelets Not Reportable Plt Clumps, EDTA Not Reportable Large Platelets Not Reportable Giant Platelets Not Reportable Platelet Satelliting Not Reportable Plt Morphology Comment Not Reportable RBC Morphology Not Reportable Dimorphic RBCs Not Reportable Polychromasia Not Reportable Hypochromasia 2+ Poikilocytosis Not Reportable Anisocytosis Not Reportable Microcytosis Not Reportable Macrocytosis Not Reportable Spherocytes Not Reportable Pappenheimer Bodies Not Reportable Sickle Cells Not Reportable Target Cells 2+ Tear Drop Cells Not Reportable Ovalocytes Not Reportable Helmet Cells Not Reportable [place] Bodies Not Reportable [place] Rings Not Reportable [place] Cells Not Reportable Bite Cells Not Reportable Crenated Cell Not Reportable Elliptocytes Not Reportable Acanthocytes (Spur) Not Reportable Rouleaux Not Reportable Hemoglobin C Crystals Not Reportable Schistocytes Not Reportable Malaria parasites Not Reportable Sigifredo Bodies Not Reportable Hem Pathologist Commnt No Sodium 135 L Potassium 4.8 Chloride 90.4 L Carbon Dioxide 25 Anion Gap 24 BUN 41 H Creatinine 5.6 H Estimated GFR 10 BUN/Creatinine Ratio 7 Glucose 192 H POC Glucose 181 H Calcium 8.7 Total Bilirubin 9.00 H AST 41 H ALT 28 Alkaline Phosphatase 335 H C-Reactive Protein 3.80 H Total Protein 7.0 Albumin 3.8 L Albumin/Globulin Ratio 1.2 Lipase 26 11/18/18 11/18/18 07:43 16:13 WBC RBC Hgb Hct MCV MCH MCHC RDW Plt Count Lymph % (Auto) Baso % (Auto) Add Manual Diff Total Counted Seg Neutrophils % Seg Neuts % (Manual) Band Neutrophils % Lymphocytes % (Manual) Reactive Lymphs % (Man) Monocytes % (Manual) Eosinophils % (Manual) Basophils % (Manual) Metamyelocytes % Myelocytes % Promyelocytes % Blast Cells % Nucleated RBC % Seg Neutrophils # Man Band Neutrophils # Lymphocytes # (Manual) Abs React Lymphs (Man) Monocytes # (Manual) Eosinophils # (Manual) Basophils # (Manual) Metamyelocytes # Myelocytes # Promyelocytes # Blast Cells # WBC Morphology Hypersegmented Neuts Hyposegmented Neuts Hypogranular Neuts Smudge Cells Toxic Granulation Toxic Vacuolation Dohle Bodies Pelger-Huet Anomaly Mary Lou Rods Platelet Estimate Clumped Platelets Plt Clumps, EDTA Large Platelets Giant Platelets Platelet Satelliting Plt Morphology Comment RBC Morphology Dimorphic RBCs Polychromasia Hypochromasia Poikilocytosis Anisocytosis Microcytosis Macrocytosis Spherocytes Pappenheimer Bodies Sickle Cells Target Cells Tear Drop Cells Ovalocytes Helmet Cells [place] Bodies [place] Rings [place] Cells Bite Cells Crenated Cell Elliptocytes Acanthocytes (Spur) Rouleaux Hemoglobin C Crystals Schistocytes Malaria parasites Sigifredo Bodies Hem Pathologist Commnt Sodium Potassium Chloride Carbon Dioxide Anion Gap BUN Creatinine Estimated GFR BUN/Creatinine Ratio Glucose POC Glucose 212 H 142 H Calcium Total Bilirubin AST ALT Alkaline Phosphatase C-Reactive Protein Total Protein Albumin Albumin/Globulin Ratio Lipase
== END 2018-11-18 18:52 | disposition home or self-care (01) | DRG 393 ==
LOC: ED 23:54 → 3A 11-16 04:51
PROVIDERS: ADMIT Internal Medicine; ATTEND Internal Medicine
PROC: 5A1D70Z Performance of Urinary Filtration, Intermittent, Less than 6 Hours Per Day (ICD-10-PCS; principal; 2018-11-16)
PROC: 5A1D70Z Performance of Urinary Filtration, Intermittent, Less than 6 Hours Per Day (ICD-10-PCS; 2018-11-18)
DX: K91.89 Other postprocedural complications and disorders of digestive system (principal); N18.6 End stage renal disease; K85.90 Acute pancreatitis without necrosis or infection, unspecified; I12.0 Hypertensive chronic kidney disease with stage 5 chronic kidney disease or end stage renal disease; Y83.8 Other surgical procedures as the cause of abnormal reaction of the patient, or of later complication, without mention of misadventure at the time of the procedure; E11.22 Type 2 diabetes mellitus with diabetic chronic kidney disease; Z96.89 Presence of other specified functional implants; Z99.2 Dependence on renal dialysis; Z87.891 Personal history of nicotine dependence; Z79.4 Long term (current) use of insulin; Z88.2 Allergy status to sulfonamides; Z88.5 Allergy status to narcotic agent; Z88.8 Allergy status to other drugs, medicaments and biological substances; Z83.3 Family history of diabetes mellitus; Z82.49 Family history of ischemic heart disease and other diseases of the circulatory system; Y92.89 Other specified places as the place of occurrence of the external cause
CPT/HCPCS: 36415; 74176; 80053; 80074; 80076; 82140; 82962; 83690; 85007; 85025; 86140; 93005; 93010; 96374; 96375; 96376; G0378; J1170; J1644; J1815; J2270; J2405; J3010; J7030; J7120; Q0162

== ENCOUNTER 2018-12-01 14:19 | Inpatient (IN) | payer OTHER ==
[2018-12-01] MEDS ORDERED: MORPHINE IV ONE (14:55)
[2018-12-01] MEDS ORDERED: ZOFRAN IV ONE (14:55)
[2018-12-01] MEDS ORDERED: NACL 0.9% 500 ML 500 ML IV ONE ×2 (15:20→17:41)
[2018-12-01 15:43] LABS: Mean Corpuscular HGB Conc 32 % (30-34); Mean Corpuscular Volume 77 fl (79-97); Platelet Count 272 K/mm3 (140-440); Red Blood Count 2.28 M/mm3 (3.65-5.03)
[2018-12-01 15:45] LABS: Hemoglobin 5.6 gm/dl (10.1-14.3)
[2018-12-01 15:46] LABS: Hematocrit 17.7 % (30.3-42.9); INR 0.93 (0.87-1.13); Red Cell Distribution Width 22.4 % (13.2-15.2)
[2018-12-01 15:48] LABS: Albumin 3.9 g/dL (3.9-5); Bilirubin,Direct 2.4 mg/dL (0-0.2)
[2018-12-01 16:24] LABS: Anisocytosis 3+; Band Neutrophils # (Manual) 0.6 K/mm3; Total Cells Counted 100
[2018-12-01 16:25] LABS: Hypochromasia 2+; Target Cells 1+; Tear Drop Cells 1+
[2018-12-01 16:27] LABS: Giant Platelets Few; Large Platelets Few; Platelet Estimate Consistent w Auto; Poikilocytosis 2+
--- NOTE | 2018-12-01 17:05 | Emergency Department Report ---
ED GI Bleed HPI - General Chief complaint: Recheck/Abnormal Lab/Rx Stated complaint: LOW BLOOD COUNT Time Seen by Provider: 12/01/18 14:31 Source: patient, EMS Mode of arrival: Ambulatory Limitations: No Limitations - History of Present Illness Initial comments: Mrs. 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 Has had global headache. Has been ill for 2 days. Dark stools for the past several days which she attributes to eating cherries. Recently dc'd from hospital for treatment for post ERCP pancreatitis. GI Dr. Munson. Otr Tanker Truck Driver Dr. Beltran Mrs. Aguayo is transferred by EMS from hemodialysis unit today. Hemoglobin 5 per labs performed today. Has had transfusion in the past. No previous hx of GI bleed. Does receive heparin during dialysis. Has had persistent abdominal pain since discharge from hospital. MD complaint: other (dark stools) -: Gradual, days(s) (5) Severity scale (0 -10): 8 Consistency: constant Improves with: none Worsens with: none Associated Symptoms: abdominal pain, nausea, vomiting, headaches, malaise - Related Data Home Medications Medication Instructions Recorded Confirmed Last Taken Insulin Glargine [Lantus VIAL] 10 unit SUB-Q QHS 08/02/17 11/16/18 3 Days Ago ~02/25/18 Insulin Lispro [HumaLOG VIAL] 8 units SQ BID 08/02/17 11/16/18 3 Days Ago ~02/25/18 Labetalol [Normodyne TAB] 200 mg PO BID 08/02/17 11/16/18 3 Days Ago ~02/25/18 Torsemide [Demadex] 60 mg PO BID 08/02/17 11/16/18 3 Days Ago ~02/25/18 cloNIDine [Catapres] 0.2 mg PO BID 08/02/17 11/16/18 3 Days Ago ~02/25/18 Previous Rx's Medication Instructions Recorded Last Taken Type Zolpidem [Ambien] 5 mg PO QHS PRN #7 tablet 03/02/18 Unknown Rx levoFLOXacin [Levaquin TAB] 500 mg PO Q48H #7 tablet 03/02/18 Unknown Rx metroNIDAZOLE [Flagyl TAB] 500 mg PO Q8H #21 tablet 03/02/18 Unknown Rx Promethazine [Phenergan TAB] 25 mg PO Q6HR PRN #20 tab 11/18/18 Unknown Rx Allergies Allergy/AdvReac Type Severity Reaction Status Date / Time amlodipine Allergy Itching Verified 12/01/18 14:57 losartan Allergy Itching Verified 12/01/18 14:57 sulfamethoxazole Allergy Rash Verified 12/01/18 14:57 [From Bactrim] trimethoprim [From Bactrim] Allergy Rash Verified 12/01/18 14:57 morphine AdvReac Vomiting Verified 12/01/18 14:57 ED Review of Systems ROS: Stated complaint: LOW BLOOD COUNT Other details as noted in HPI Comment: All other systems reviewed and negative Constitutional: malaise Gastrointestinal: abdominal pain Neurological: headache ED Past Medical Hx - Past Medical History Previous Medical History?: Yes Hx Hypertension: Yes Hx Diabetes: Yes Hx Renal Disease: Yes (ESRD MWF) Additional medical history: HLD, pancreatitis - Surgical History Past Surgical History?: Yes Additional Surgical History: Left arm Fistula, ERCP - Social History Smoking Status: Former Smoker - Medications Home Medications: Home Medications Medication Instructions Recorded Confirmed Last Taken Type Insulin Glargine [Lantus VIAL] 10 unit SUB-Q QHS 08/02/17 11/16/18 3 Days Ago History ~02/25/18 Insulin Lispro [HumaLOG VIAL] 8 units SQ BID 08/02/17 11/16/18 3 Days Ago History ~02/25/18 Labetalol [Normodyne TAB] 200 mg PO BID 08/02/17 11/16/18 3 Days Ago History ~02/25/18 Torsemide [Demadex] 60 mg PO BID 08/02/17 11/16/18 3 Days Ago History ~02/25/18 cloNIDine [Catapres] 0.2 mg PO BID 08/02/17 11/16/18 3 Days Ago History ~02/25/18 Zolpidem [Ambien] 5 mg PO QHS PRN #7 tablet 03/02/18 11/16/18 Unknown Rx levoFLOXacin [Levaquin TAB] 500 mg PO Q48H #7 tablet 03/02/18 11/16/18 Unknown Rx metroNIDAZOLE [Flagyl TAB] 500 mg PO Q8H #21 tablet 03/02/18 11/16/18 Unknown Rx Promethazine [Phenergan TAB] 25 mg PO Q6HR PRN #20 tab 11/18/18 Unknown Rx ED Physical Exam - General Limitations: No Limitations General appearance: alert, in no apparent distress - Head Head exam: Present: atraumatic, normocephalic - Eye Eye exam: Present: normal appearance - ENT ENT exam: Present: mucous membranes moist - Neck Neck exam: Present: normal inspection. Absent: tenderness, meningismus - Respiratory Respiratory exam: Present: normal lung sounds bilaterally. Absent: respiratory distress, wheezes, rales, stridor - Cardiovascular Cardiovascular Exam: Present: regular rate, normal rhythm, normal heart sounds. Absent: rubs, gallop - GI/Abdominal GI/Abdominal exam: Present: soft, normal bowel sounds. Absent: distended, tenderness, guarding, rebound - Rectal Rectal exam: Present: heme (+) stool, other (dark greenish brown stool) - Extremities Exam Extremities exam: Present: normal inspection - Back Exam Back exam: Present: normal inspection - Neurological Exam Neurological exam: Present: alert, oriented X3 - Psychiatric Psychiatric exam: Present: normal affect, normal mood - Skin Skin exam: Present: warm, dry, intact, normal color. Absent: rash - Other Other exam information: Left forearm AV fistula access +thrill +bruit ED Course Vital Signs 12/01/18 14:19 Temperature 98.1 F Pulse Rate 84 Respiratory 14 Rate Blood Pressure 147/57 O2 Sat by Pulse 98 Oximetry ED Medical Decision Making - Lab Data Result diagrams: 12/01/18 15:22 12/01/18 15:22 Laboratory Results - last 24 hr 12/01/18 12/01/18 12/01/18 15:22 15:22 15:22 WBC 10.1 RBC 2.28 L Hgb 5.6 L* Hct 17.7 L* MCV 77 L MCH 25 L MCHC 32 RDW 22.4 H Plt Count 272 Lymph % (Auto) Learning Disabled Teacher [place] % (Auto) Learning Disabled Teacher Eos % (Auto) Learning Disabled Teacher Baso % (Auto) Learning Disabled Teacher Lymph # Learning Disabled Teacher [place] # Learning Disabled Teacher Eos # Learning Disabled Teacher Baso # Learning Disabled Teacher Add Manual Diff Complete Total Counted 100 Seg Neutrophils % Learning Disabled Teacher Seg Neuts % (Manual) 76.0 H Band Neutrophils % 6.0 Lymphocytes % (Manual) 8.0 L Reactive Lymphs % (Man) 0 Monocytes % (Manual) 4.0 Eosinophils % (Manual) 4.0 Basophils % (Manual) 2.0 H Metamyelocytes % 0 Myelocytes % 0 Promyelocytes % 0 Blast Cells % 0 Nucleated RBC % 13.0 H Seg Neutrophils # Learning Disabled Teacher Seg Neutrophils # Man 7.7 Band Neutrophils # 0.6 Lymphocytes # (Manual) 0.8 L Abs React Lymphs (Man) 0.0 Monocytes # (Manual) 0.4 Eosinophils # (Manual) 0.4 Basophils # (Manual) 0.2 H Metamyelocytes # 0.0 Myelocytes # 0.0 Promyelocytes # 0.0 Blast Cells # 0.0 WBC Morphology Not Reportable Hypersegmented Neuts Not Reportable Hyposegmented Neuts Not Reportable Hypogranular Neuts Not Reportable Smudge Cells Not Reportable Toxic Granulation Not Reportable Toxic Vacuolation Not Reportable Dohle Bodies Not Reportable Pelger-Huet Anomaly Not Reportable Mary Lou Rods Not Reportable Platelet Estimate Consistent w auto Clumped Platelets Not Reportable Plt Clumps, EDTA Not Reportable Large Platelets Few Giant Platelets Few Platelet Satelliting Not Reportable Plt Morphology Comment Not Reportable RBC Morphology Not Reportable Dimorphic RBCs Not Reportable Polychromasia 1+ Hypochromasia 2+ Poikilocytosis 2+ Anisocytosis 3+ Microcytosis 2+ Macrocytosis Not Reportable Spherocytes Not Reportable Pappenheimer Bodies Not Reportable Sickle Cells Not Reportable Target Cells 1+ Tear Drop Cells 1+ Ovalocytes Not Reportable Helmet Cells Not Reportable [place] Bodies Not Reportable [place] Rings Not Reportable [place] Cells Not Reportable Bite Cells Not Reportable Crenated Cell Not Reportable Elliptocytes Not Reportable Acanthocytes (Spur) Not Reportable Rouleaux Not Reportable Hemoglobin C Crystals Not Reportable Schistocytes Not Reportable Malaria parasites Not Reportable Sigifredo Bodies Not Reportable Hem Pathologist Commnt No PT 12.9 INR 0.93 APTT Sodium 143 Potassium 3.7 Chloride 95.6 L Carbon Dioxide 36 H Anion Gap 15 BUN 13 Creatinine 2.2 H Estimated GFR 28 BUN/Creatinine Ratio 6 Glucose 234 H Calcium 9.0 Total Bilirubin 3.90 H Direct Bilirubin 2.4 H Indirect Bilirubin 1.5 AST 37 ALT 27 Alkaline Phosphatase 421 H Total Protein 7.7 Albumin 3.9 Albumin/Globulin Ratio 1.0 Blood Type Antibody Screen Crossmatch 12/01/18 12/01/18 15:22 15:22 WBC RBC Hgb Hct MCV MCH MCHC RDW Plt Count Lymph % (Auto) [place] % (Auto) Eos % (Auto) Baso % (Auto) Lymph # [place] # Eos # Baso # Add Manual Diff Total Counted Seg Neutrophils % Seg Neuts % (Manual) Band Neutrophils % Lymphocytes % (Manual) Reactive Lymphs % (Man) Monocytes % (Manual) Eosinophils % (Manual) Basophils % (Manual) Metamyelocytes % Myelocytes % Promyelocytes % Blast Cells % Nucleated RBC % Seg Neutrophils # Seg Neutrophils # Man Band Neutrophils # Lymphocytes # (Manual) Abs React Lymphs (Man) Monocytes # (Manual) Eosinophils # (Manual) Basophils # (Manual) Metamyelocytes # Myelocytes # Promyelocytes # Blast Cells # WBC Morphology Hypersegmented Neuts Hyposegmented Neuts Hypogranular Neuts Smudge Cells Toxic Granulation Toxic Vacuolation Dohle Bodies Pelger-Huet Anomaly Mary Lou Rods Platelet Estimate Clumped Platelets Plt Clumps, EDTA Large Platelets Giant Platelets Platelet Satelliting Plt Morphology Comment RBC Morphology Dimorphic RBCs Polychromasia Hypochromasia Poikilocytosis Anisocytosis Microcytosis Macrocytosis Spherocytes Pappenheimer Bodies Sickle Cells Target Cells Tear Drop Cells Ovalocytes Helmet Cells [place] Bodies [place] Rings [place] Cells Bite Cells Crenated Cell Elliptocytes Acanthocytes (Spur) Rouleaux Hemoglobin C Crystals Schistocytes Malaria parasites Sigifredo Bodies Hem Pathologist Commnt PT INR APTT 27.9 Sodium Potassium Chloride Carbon Dioxide Anion Gap BUN Creatinine Estimated GFR BUN/Creatinine Ratio Glucose Calcium Total Bilirubin Direct Bilirubin Indirect Bilirubin AST ALT Alkaline Phosphatase Total Protein Albumin Albumin/Globulin Ratio Blood Type O POSITIVE Antibody Screen Negative Crossmatch See Detail - Medical Decision Making Mrs. Aguayo presents with severe anemia, drastic drop over 2 weeks from Hgb 10- 11 to 5 today. With Hemoccult-positive stools likely GI bleed possiblem stress ulceration from previous illness, will need GI evaluation. I consulted Dr. Bartlett dental technician. I consulted plate preparer Dr. Weir. Patient did have full dialysis today. Dr. Chase will admit to hospitalist service in fair condition. Critical Care Time: Yes Critical care time in (mins) excluding proc time.: 40 Critical care attestation.: If time is entered above; I have spent that time in minutes in the direct care of this critically ill patient, excluding procedure time. 40 minutes of critical care time excluding procedures were used in the care of the patient. Patient required multiple assessments and interventions. I reviewed the electronic medical record. I spoke with consultants involved in the care of the patient. I was concerned for complications of GI bleed including hemorrhagic shock, demand ischemia. ED Disposition Clinical Impression: Severe anemia, GI bleed, ESRD (end stage renal disease) Disposition: OP ADMIT IP TO THIS HOSP Is pt being admited?: Yes Does the pt Need Aspirin: No Condition: Stable
[2018-12-01] MEDS ORDERED: NORCO 5/325 PO ONE (17:25)
[2018-12-01] MEDS ORDERED: TYLENOL PO PRN (17:33)
[2018-12-01] MEDS ORDERED: SODIUM CHLORIDE FLUSH SYRINGE 10 ML IV PRN (17:33)
[2018-12-01] MEDS ORDERED: DILAUDID IV PRN (17:33)
[2018-12-01] MEDS ORDERED: PERCOCET 5/325 PO PRN (17:33)
[2018-12-01] MEDS: PHENERGAN PO PRN (19:05)
[2018-12-01] MEDS ORDERED: PHENERGAN ONE (19:06)
[2018-12-01] MEDS: NORMODYNE PO SCH (21:45)
[2018-12-01] MEDS: CATAPRES PO SCH (21:45)
[2018-12-01] MEDS ORDERED: TORSEMIDE 60 MG PO SCH (22:00)
[2018-12-01] MEDS: HEPARIN SUB-Q SCH (22:47)
[2018-12-01] MEDS: LANTUS SUB-Q SCH (22:48)
[2018-12-01] MEDS: HumaLOG SUB-Q SCH (22:49)
[2018-12-01] MEDS: SODIUM CHLORIDE FLUSH SYRINGE 10 ML IV SCH (22:49)
[2018-12-01] MEDS: AMBIEN PO PRN (22:55)
--- NOTE | 2018-12-02 02:03 | History and Physical Report ---
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 Feels weak and SOB on minimal exertion.Also having dark stools.No fever or chills.No hematemesis.No abd pain. Past Medical History Previous Medical History?: Yes Hypertension Yes Diabetes: Yes Renal Disease: Yes (ESRD MWF) Additional medical history: HLD, pancreatitis Surgical History Past Surgical History?: Yes Additional Surgical History: Left arm Fistula, ERCP Social History Smoking Status: Former Smoker Medications Home Medications: Home Medications Medication Instructions Recorded Confirmed Last Taken Type Insulin Glargine [Lantus VIAL] 10 unit SUB-Q QHS 08/02/17 11/16/18 3 Days Ago History ~02/25/18 Insulin Lispro [HumaLOG VIAL] 8 units SQ BID 08/02/17 11/16/18 3 Days Ago History ~02/25/18 Labetalol [Normodyne TAB] 200 mg PO BID 08/02/17 11/16/18 3 Days Ago History ~02/25/18 Torsemide [Demadex] 60 mg PO BID 08/02/17 11/16/18 3 Days Ago History ~02/25/18 cloNIDine [Catapres] 0.2 mg PO BID 08/02/17 11/16/18 3 Days Ago History ~02/25/18 Zolpidem [Ambien] 5 mg PO QHS PRN #7 tablet 03/02/18 11/16/18 Unknown Rx levoFLOXacin [Levaquin TAB] 500 mg PO Q48H #7 tablet 03/02/18 11/16/18 Unknown Rx metroNIDAZOLE [Flagyl TAB] 500 mg PO Q8H #21 tablet 03/02/18 11/16/18 Unknown Rx Promethazine [Phenergan TAB] 25 mg PO Q6HR PRN #20 tab 11/18/18 Unknown Rx Review of Systems ROS: Stated complaint: LOW BLOOD COUNT Other details as noted in HPI Comment: All other systems reviewed and negative Constitutional: malaise Gastrointestinal: abdominal pain Neurological: headache Medications and Allergies Allergies Allergy/AdvReac Type Severity Reaction Status Date / Time amlodipine Allergy Itching Verified 12/01/18 14:57 losartan Allergy Itching Verified 12/01/18 14:57 sulfamethoxazole Allergy Rash Verified 12/01/18 14:57 [From Bactrim] trimethoprim [From Bactrim] Allergy Rash Verified 12/01/18 14:57 morphine AdvReac Vomiting Verified 12/01/18 14:57 Home Medications Medication Instructions Recorded Confirmed Last Taken Type Insulin Glargine [Lantus VIAL] 15 unit SUB-Q DAILY 08/02/17 12/01/18 3 Days Ago History ~02/25/18 Torsemide [Demadex] 60 mg PO BID 08/02/17 12/01/18 3 Days Ago History ~02/25/18 Metoprolol [Lopressor] 100 mg PO BID 12/01/18 12/01/18 Unknown History Minoxidil [Loniten] 10 mg PO DAILY 12/01/18 12/01/18 Unknown History Pantoprazole [Protonix TAB] 20 mg PO DAILY 12/01/18 12/01/18 Unknown History cloNIDine [Catapres] 0.1 mg PO BID 12/01/18 12/01/18 Unknown History Active Meds: Active Medications Acetaminophen (Tylenol) 650 mg PO Q4H PRN PRN Reason: Pain MILD(1-3)/Fever >100.5/[facility]ILL[facility] Clonidine HCl (Catapres) 0.2 mg PO BID [facility] Last Admin: 12/01/18 21:45 Dose: Not Given Documented by: Heparin Sodium (Porcine) (Heparin) 5,000 unit SUB-Q Q12HR [facility] Last Admin: 12/01/18 22:47 Dose: 5,000 unit Documented by: Hydromorphone HCl (Dilaudid) 0.5 mg IV Q3H PRN PRN Reason: Pain , Severe (7-10) Insulin Glargine (Lantus) 10 units SUB-Q QHS [facility] Last Admin: 12/01/18 22:48 Dose: 10 units Documented by: Insulin Human Lispro (Humalog) 8 unit SUB-Q BID [facility] Last Admin: 12/01/18 22:49 Dose: 8 unit Documented by: Labetalol HCl (Normodyne) 200 mg PO BID [facility] Last Admin: 12/01/18 21:45 Dose: Not Given Documented by: Ondansetron HCl (Zofran) 4 mg IV Q8H PRN PRN Reason: Nausea And Vomiting Oxycodone/Acetaminophen (Percocet 5/325) 1 tab PO Q6H PRN PRN Reason: Pain, Moderate (4-6) Promethazine HCl (Phenergan) 25 mg PO Q6HR PRN PRN Reason: nausea or vomiting Last Admin: 12/01/18 19:05 Dose: 25 mg Documented by: Sodium Chloride (Sodium Chloride Flush Syringe 10 Ml) 10 ml IV BID [facility] Last Admin: 12/01/18 22:49 Dose: 10 ml Documented by: Sodium Chloride (Sodium Chloride Flush Syringe 10 Ml) 10 ml IV PRN PRN PRN Reason: LINE FLUSH Torsemide (Demadex) 60 mg PO BID@0600,1800 [facility] Zolpidem Tartrate (Ambien) 5 mg PO QHS PRN PRN Reason: Sleep Last Admin: 12/01/18 22:55 Dose: 5 mg Documented by: Exam - Constitutional Vitals: Temp Pulse Resp BP Pulse Ox 98.2 F 75 18 112/52 96 12/01/18 23:33 12/01/18 23:33 12/01/18 23:33 12/01/18 23:33 12/01/18 23:33 General appearance: Present: no acute distress, well-nourished - EENT Eyes: Present: PERRL ENT: hearing intact, clear oral mucosa, other (Pale mucous membranes) - Neck Neck: Present: supple, normal ROM - Respiratory Respiratory effort: normal Respiratory: bilateral: CTA - Cardiovascular Heart rate: 76 Rhythm: regular Heart Sounds: Present: S1 & S2. Absent: rub, click - Extremities Extremities: no ischemia, pulses intact, pulses symmetrical, No edema Extremity abnormal: other (LUE AVF) Peripheral Pulses: within normal limits - Abdominal General gastrointestinal: Present: soft, non-tender, non-distended, normal bowel sounds Female genitourinary: Present: normal - Rectal Rectal Exam: stool dark (ob positive) - Integumentary Integumentary: Present: clear, warm, dry - Musculoskeletal Musculoskeletal: gait normal, strength equal bilaterally - Psychiatric Psychiatric: appropriate mood/affect, intact judgment & insight - Neurologic Neurologic: CNII-XII intact, moves all extremities Results - Labs CBC & Chem 7: 12/01/18 15:22 12/01/18 15:22 Labs: Laboratory Last Values WBC 10.1 K/mm3 (4.5-11.0) 12/01/18 15:22 RBC 2.28 M/mm3 (3.65-5.03) L 12/01/18 15:22 Hgb 5.6 gm/dl (10.1-14.3) L* 12/01/18 15:22 Hct 17.7 % (30.3-42.9) L* 12/01/18 15:22 MCV 77 fl (79-97) L 12/01/18 15:22 MCH 25 pg (28-32) L 12/01/18 15:22 MCHC 32 % (30-34) 12/01/18 15:22 RDW 22.4 % (13.2-15.2) H 12/01/18 15:22 Plt Count 272 K/mm3 (140-440) 12/01/18 15:22 Lymph % (Auto) Legal Job Titles 12/01/18 15:22 Day % (Auto) Legal Job Titles 12/01/18 15:22 Eos % (Auto) Legal Job Titles 12/01/18 15:22 Baso % (Auto) Legal Job Titles 12/01/18 15:22 Lymph # Legal Job Titles 12/01/18 15:22 Day # Legal Job Titles 12/01/18 15:22 Eos # Legal Job Titles 12/01/18 15:22 Baso # Legal Job Titles 12/01/18 15:22 Add Manual Diff Complete 12/01/18 15:22 Total Counted 100 12/01/18 15:22 Seg Neutrophils % Legal Job Titles 12/01/18 15:22 Seg Neuts % (Manual) 76.0 % (40.0-70.0) H 12/01/18 15:22 Band Neutrophils % 6.0 % 12/01/18 15:22 Lymphocytes % (Manual) 8.0 % (13.4-35.0) L 12/01/18 15:22 Reactive Lymphs % (Man) 0 % 12/01/18 15:22 Monocytes % (Manual) 4.0 % (0.0-7.3) 12/01/18 15:22 Eosinophils % (Manual) 4.0 % (0.0-4.3) 12/01/18 15:22 Basophils % (Manual) 2.0 % (0.0-1.8) H 12/01/18 15:22 Metamyelocytes % 0 % 12/01/18 15:22 Myelocytes % 0 % 12/01/18 15:22 Promyelocytes % 0 % 12/01/18 15:22 Blast Cells % 0 % 12/01/18 15:22 Nucleated RBC % 13.0 % (0.0-0.9) H 12/01/18 15:22 Seg Neutrophils # Legal Job Titles 12/01/18 15:22 Seg Neutrophils # Man 7.7 K/mm3 (1.8-7.7) 12/01/18 15:22 Band Neutrophils # 0.6 K/mm3 12/01/18 15:22 Lymphocytes # (Manual) 0.8 K/mm3 (1.2-5.4) L 12/01/18 15:22 Abs React Lymphs (Man) 0.0 K/mm3 12/01/18 15:22 Monocytes # (Manual) 0.4 K/mm3 (0.0-0.8) 12/01/18 15:22 Eosinophils # (Manual) 0.4 K/mm3 (0.0-0.4) 12/01/18 15:22 Basophils # (Manual) 0.2 K/mm3 (0.0-0.1) H 12/01/18 15:22 Metamyelocytes # 0.0 K/mm3 12/01/18 15:22 Myelocytes # 0.0 K/mm3 12/01/18 15:22 Promyelocytes # 0.0 K/mm3 12/01/18 15:22 Blast Cells # 0.0 K/mm3 12/01/18 15:22 WBC Morphology Not Reportable 12/01/18 15:22 Hypersegmented Neuts Not Reportable 12/01/18 15:22 Hyposegmented Neuts Not Reportable 12/01/18 15:22 Hypogranular Neuts Not Reportable 12/01/18 15:22 Smudge Cells Not Reportable 12/01/18 15:22 Toxic Granulation Not Reportable 12/01/18 15:22 Toxic Vacuolation Not Reportable 12/01/18 15:22 Dohle Bodies Not Reportable 12/01/18 15:22 Pelger-Huet Anomaly Not Reportable 12/01/18 15:22 Mary Lou Rods Not Reportable 12/01/18 15:22 Platelet Estimate Consistent w auto 12/01/18 15:22 Clumped Platelets Not Reportable 12/01/18 15:22 Plt Clumps, EDTA Not Reportable 12/01/18 15:22 Large Platelets Few 12/01/18 15:22 Giant Platelets Few 12/01/18 15:22 Platelet Satelliting Not Reportable 12/01/18 15:22 Plt Morphology Comment Not Reportable 12/01/18 15:22 RBC Morphology Not Reportable 12/01/18 15:22 Dimorphic RBCs Not Reportable 12/01/18 15:22 Polychromasia 1+ 12/01/18 15:22 Hypochromasia 2+ 12/01/18 15:22 Poikilocytosis 2+ 12/01/18 15:22 Anisocytosis 3+ 12/01/18 15:22 Microcytosis 2+ 12/01/18 15:22 Macrocytosis Not Reportable 12/01/18 15:22 Spherocytes Not Reportable 12/01/18 15:22 Pappenheimer Bodies Not Reportable 12/01/18 15:22 Sickle Cells Not Reportable 12/01/18 15:22 Target Cells 1+ 12/01/18 15:22 Tear Drop Cells 1+ 12/01/18 15:22 Ovalocytes Not Reportable 12/01/18 15:22 Helmet Cells Not Reportable 12/01/18 15:22 [place] Bodies Not Reportable 12/01/18 15:22 [place] Rings Not Reportable 12/01/18 15:22 [place] Cells Not Reportable 12/01/18 15:22 Bite Cells Not Reportable 12/01/18 15:22 Crenated Cell Not Reportable 12/01/18 15:22 Elliptocytes Not Reportable 12/01/18 15:22 Acanthocytes (Spur) Not Reportable 12/01/18 15:22 Rouleaux Not Reportable 12/01/18 15:22 Hemoglobin C Crystals Not Reportable 12/01/18 15:22 Schistocytes Not Reportable 12/01/18 15:22 Malaria parasites Not Reportable 12/01/18 15:22 Sigifredo Bodies Not Reportable 12/01/18 15:22 Hem Pathologist Commnt No 12/01/18 15:22 PT 12.9 Sec. (12.2-14.9) 12/01/18 15:22 INR 0.93 (0.87-1.13) 12/01/18 15:22 APTT 27.9 Sec. (24.2-36.6) 12/01/18 15:22 Sodium 143 mmol/L (137-145) 12/01/18 15:22 Potassium 3.7 mmol/L (3.6-5.0) 12/01/18 15:22 Chloride 95.6 mmol/L (98-107) L 12/01/18 15:22 Carbon Dioxide 36 mmol/L (22-30) H 12/01/18 15:22 Anion Gap 15 mmol/L 12/01/18 15:22 BUN 13 mg/dL (7-17) 12/01/18 15:22 Creatinine 2.2 mg/dL (0.7-1.2) H 12/01/18 15:22 Estimated GFR 28 ml/min 12/01/18 15:22 BUN/Creatinine Ratio 6 % 12/01/18 15:22 Glucose 234 mg/dL (65-100) H 12/01/18 15:22 POC Glucose 325 (70-105) H 12/01/18 21:10 Hemoglobin A1c 7.6 % (4-6) H 12/01/18 15:22 Calcium 9.0 mg/dL (8.4-10.2) 12/01/18 15:22 Total Bilirubin 3.90 mg/dL (0.1-1.2) H 12/01/18 15:22 Direct Bilirubin 2.4 mg/dL (0-0.2) H 12/01/18 15:22 Indirect Bilirubin 1.5 mg/dL 12/01/18 15:22 AST 37 units/L (5-40) 12/01/18 15:22 ALT 27 units/L (7-56) 12/01/18 15:22 Alkaline Phosphatase 421 units/L (35-129) H 12/01/18 15:22 Total Protein 7.7 g/dL (6.3-8.2) 12/01/18 15:22 Albumin 3.9 g/dL (3.9-5) 12/01/18 15:22 Albumin/Globulin Ratio 1.0 % 12/01/18 15:22 Blood Type O POSITIVE 12/01/18 15:22 Antibody Screen Negative 12/01/18 15:22 Crossmatch See Detail 12/01/18 15:22 Short CBC 12/01/18 Range/Units 15:22 WBC 10.1 (4.5-11.0) K/mm3 Hgb 5.6 L* (10.1-14.3) gm/dl Hct 17.7 L* (30.3-42.9) % Plt Count 272 (140-440) K/mm3 BMP 12/01/18 15:22 Sodium 143 Potassium 3.7 Chloride 95.6 L Carbon Dioxide 36 H BUN 13 Creatinine 2.2 H Glucose 234 H Calcium 9.0 Liver Function 12/01/18 Range/Units 15:22 Total Bilirubin 3.90 H (0.1-1.2) mg/dL Direct Bilirubin 2.4 H (0-0.2) mg/dL AST 37 (5-40) units/L ALT 27 (7-56) units/L Alkaline Phosphatase 421 H (35-129) units/L Albumin 3.9 (3.9-5) g/dL Assessment and Plan Advance Directives: Yes (Full code) VTE prophylaxis?: Mechanical Plan of care discussed with patient/family: Yes - Patient Problems (1) GI bleed Current Visit: Yes Status: Acute Qualifiers: Gastritis type: unspecified gastritis Plan to address problem: Transfuse 2 units of PRBS GI consult requested. IV protonix initiated T (2) ESRD (end stage renal disease) Current Visit: Yes Status: Chronic Plan to address problem: CONT HD (3) Severe anemia Current Visit: Yes Status: Acute Plan to address problem: Transfuse 2 to 3 units of Blood (4) IDDM (insulin dependent diabetes mellitus) Current Visit: Yes Status: Chronic Plan to address problem: COnt INsulin coverage (5) HTN (hypertension) Current Visit: Yes Status: Chronic Qualifiers: Hypertension type: essential hypertension Qualified Code(s): I10 - Essential (primary) hypertension Plan to address problem: Cont antihpertensives (6) HLD (hyperlipidemia) Current Visit: Yes Status: Acute (7) HLD (hyperlipidemia) Current Visit: Yes Status: Chronic Qualifiers: Hyperlipidemia type: mixed hyperlipidemia Qualified Code(s): E78.2 - Mixed hyperlipidemia Plan to address problem: Hold statins for now (8) DVT prophylaxis Current Visit: Yes Status: Acute Plan to address problem: On scd's
[2018-12-02] MEDS: DEMADEX PO SCH ×2 (05:26→18:09)
[2018-12-02 07:28] LABS: Hematocrit 25.2 % (30.3-42.9); Hemoglobin 8.2 gm/dl (10.1-14.3); Mean Corpuscular HGB Conc 33 % (30-34); Mean Corpuscular Volume 82 fl (79-97); Platelet Count 219 K/mm3 (140-440); Red Blood Count 3.08 M/mm3 (3.65-5.03)
[2018-12-02 07:34] LABS: Albumin 3.5 g/dL (3.9-5)
[2018-12-02 07:35] LABS: Red Cell Distribution Width 20.3 % (13.2-15.2)
[2018-12-02] MEDS ORDERED: D50W (25GM) Syringe IV PRN (08:17)
[2018-12-02 08:36] LABS: Band Neutrophils # (Manual) 0.1 K/mm3; Total Cells Counted 100
[2018-12-02 08:37] LABS: Anisocytosis 3+; Hypochromasia 2+; Macrocytosis 2+; Poikilocytosis 1+
[2018-12-02] MEDS ORDERED: NACL 0.9% 100 ML IV PRN (08:37)
[2018-12-02 08:38] LABS: Ovalocytes Few; Platelet Estimate Consistent w Auto; Target Cells 1+; Tear Drop Cells Few
[2018-12-02] MEDS ORDERED: D5/0.45NS 1,000 ML IV SCH (09:00)
--- NOTE | 2018-12-02 12:11 | Progress Note ---
Assessment and Plan 53 yo female with hx of 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 Feels weak and SOB on minimal exertion. Also having dark stools. On admission, hemoglobin was 5.6. Patient also had positive Hemoccult stool. No fever or chills. No hematemesis. Has a dental epigastric pain. Was given blood penicillin of 2 units. Hemoglobin improved to 10.6. GI consulted. Patient hasn't ERCP in 11/15/2018. Showed sphincter of Oddi dysfunction. Had post procedure pancreatitis that result presents of discharge at the time on 11/18/2018. Has been having dark tarry stool. - Patient Problems (1) GI bleed Current Visit: Yes Status: Acute Qualifiers: Gastritis type: unspecified gastritis Plan to address problem: Status post Transfusion 2 units of PRBS IV protonix initiated Fro CT abdomen per GI (2) ESRD (end stage renal disease) Current Visit: Yes Status: Chronic Plan to address problem: CONT HD (3) Severe anemia from acute blood loss Current Visit: Yes Status: Acute Plan to address problem: s/p 2 units of Blood (4) IDDM (insulin dependent diabetes mellitus) Current Visit: Yes Status: Chronic Plan to address problem: COnt insulin coverage Consistent divided diet (5) HTN (hypertension) Current Visit: Yes Status: Chronic Qualifiers: Hypertension type: essential hypertension Qualified Code(s): I10 - Essential (primary) hypertension Plan to address problem: Cont antihpertensives (7) HLD (hyperlipidemia) Current Visit: Yes Status: Chronic Qualifiers: Hyperlipidemia type: mixed hyperlipidemia Qualified Code(s): E78.2 - Mixed hyperlipidemia Plan to address problem: Hold statins for now (8) DVT prophylaxis Current Visit: Yes Status: Acute Plan to address problem: On scd's only Subjective Date of service: 12/02/18 Principal diagnosis: GI bleeding, end-stage renal disease on hemodialysis, anemia Interval history: Patient seen and examined. Complaint intermittent abdominal pain. No active GI bleeding. No nausea no vomiting, no hematemesis or melena. Objective - Exam Narrative Exam: Constitutional: Well-nourished well-developed. In no distress Head: Normocephalic atraumatic Eyes: Pupils are equal round and reactive to light Nose: No enlarged turbinates, no septal deviation. Mouth: Moist mucous membranes. Neck: Supple no thyromegaly. No bruit. No JVD Heart: Regular rate and rhythm, S1-S2 normal. No rubs murmurs or gallop Lungs: Clear to auscultation bilaterally. no rales or rhonchi Abdomen: Soft, nontender. Bowel sound are present. Extremities: No edema, no cyanosis, no clubbing. Neuro: Alert oriented Oriented x3. No focal sensory or motor deficit. Skin: No rashes or hyperpigmented spots Musculoskeletal system: No joint pain or swelling Hematological: No petechia or subcutanous hemorrhages. Immunological: No multiple septic spots on the skin Lymphatic: No generalized lymphadenopathy Psychiatry: Euthymic. Calm. - Constitutional Vitals: Vital Signs - 12hr 12/02/18 12/02/18 12/02/18 00:54 02:21 04:26 Temperature 98.0 F 98.0 F 98.0 F Pulse Rate 73 72 73 Respiratory 16 16 16 Rate Blood Pressure 130/60 140/63 159/81 O2 Sat by Pulse 97 98 Oximetry 12/02/18 12/02/18 12/02/18 05:11 11:45 12:00 Temperature 98.8 F 97.7 F Pulse Rate 70 93 H 86 Respiratory 18 18 Rate Blood Pressure 134/68 200/101 201/103 O2 Sat by Pulse 94 Oximetry - Labs CBC & Chem 7: 12/02/18 06:01 12/02/18 06:01 Labs: Abnormal lab results 12/01/18 12/01/18 12/01/18 Range/Units 15:22 15:22 15:22 RBC 2.28 L (3.65-5.03) M/mm3 Hgb 5.6 L* (10.1-14.3) gm/dl Hct 17.7 L* (30.3-42.9) % MCV 77 L (79-97) fl MCH 25 L (28-32) pg RDW 22.4 H (13.2-15.2) % Seg Neuts % (Manual) 76.0 H (40.0-70.0) % Lymphocytes % (Manual) 8.0 L (13.4-35.0) % Monocytes % (Manual) (0.0-7.3) % Basophils % (Manual) 2.0 H (0.0-1.8) % Nucleated RBC % 13.0 H (0.0-0.9) % Lymphocytes # (Manual) 0.8 L (1.2-5.4) K/mm3 Basophils # (Manual) 0.2 H (0.0-0.1) K/mm3 Chloride 95.6 L (98-107) mmol/L Carbon Dioxide 36 H (22-30) mmol/L Creatinine 2.2 H (0.7-1.2) mg/dL Glucose 234 H (65-100) mg/dL POC Glucose (70-105) Hemoglobin A1c (4-6) % Total Bilirubin 3.90 H (0.1-1.2) mg/dL Direct Bilirubin 2.4 H (0-0.2) mg/dL Alkaline Phosphatase 421 H (35-129) units/L Albumin (3.9-5) g/dL Crossmatch See Detail 12/01/18 12/01/18 12/02/18 Range/Units 15:22 21:10 06:01 RBC 3.08 L (3.65-5.03) M/mm3 Hgb 8.2 L (10.1-14.3) gm/dl Hct 25.2 L D (30.3-42.9) % MCV (79-97) fl MCH 27 L (28-32) pg RDW 20.3 H (13.2-15.2) % Seg Neuts % (Manual) 76.0 H (40.0-70.0) % Lymphocytes % (Manual) 10.0 L (13.4-35.0) % Monocytes % (Manual) 9.0 H (0.0-7.3) % Basophils % (Manual) (0.0-1.8) % Nucleated RBC % (0.0-0.9) % Lymphocytes # (Manual) 0.8 L (1.2-5.4) K/mm3 Basophils # (Manual) (0.0-0.1) K/mm3 Chloride (98-107) mmol/L Carbon Dioxide (22-30) mmol/L Creatinine (0.7-1.2) mg/dL Glucose (65-100) mg/dL POC Glucose 325 H (70-105) Hemoglobin A1c 7.6 H (4-6) % Total Bilirubin (0.1-1.2) mg/dL Direct Bilirubin (0-0.2) mg/dL Alkaline Phosphatase (35-129) units/L Albumin (3.9-5) g/dL Crossmatch 12/02/18 12/02/18 12/02/18 Range/Units 06:01 07:58 11:26 RBC (3.65-5.03) M/mm3 Hgb (10.1-14.3) gm/dl Hct (30.3-42.9) % MCV (79-97) fl MCH (28-32) pg RDW (13.2-15.2) % Seg Neuts % (Manual) (40.0-70.0) % Lymphocytes % (Manual) (13.4-35.0) % Monocytes % (Manual) (0.0-7.3) % Basophils % (Manual) (0.0-1.8) % Nucleated RBC % (0.0-0.9) % Lymphocytes # (Manual) (1.2-5.4) K/mm3 Basophils # (Manual) (0.0-0.1) K/mm3 Chloride 95.9 L (98-107) mmol/L Carbon Dioxide 32 H (22-30) mmol/L Creatinine 3.2 H (0.7-1.2) mg/dL Glucose 61 L (65-100) mg/dL POC Glucose 60 L 56 L (70-105) Hemoglobin A1c (4-6) % Total Bilirubin 3.30 H (0.1-1.2) mg/dL Direct Bilirubin (0-0.2) mg/dL Alkaline Phosphatase 394 H (35-129) units/L Albumin 3.5 L (3.9-5) g/dL Crossmatch
--- NOTE | 2018-12-02 13:06 | Consultation ---
History of Present Illness - Reason for Consult Consult date: 12/02/18 end stage renal disease Requesting physician: CHICA GARCIA - History of Present Illness This is a 53 yo AAF with a past medical history significant for end-stage renal disease in the setting of diabetes and hypertension, who is well-known to us in the outpatient dialysis unit, with recent hospitalization for pancreatitis requiring ERCP, now presents with melena and symptomatic anemia. outpatient labs showed hb around 5 and pt was sent to ER. Labs in ER confirmed Hb of 5.6 and pt was transfused with 3PRBCs and admitted for further GI eval. pt was c/o dark stool for the last week, along with diffuse abdominal pain, generalized weakness. Pt denies fever, chills, CP, palpitations, nausea, vomiting, dysuria. Renal consult requested for management of ESRD. Past History Past Medical History: anemia, diabetes, ESRD, hypertension, renal failure Past Surgical History: Other (AVF placement ) Social history: lives with family Family history: diabetes, hypertension Medications and Allergies Allergies Allergy/AdvReac Type Severity Reaction Status Date / Time amlodipine Allergy Itching Verified 12/01/18 14:57 losartan Allergy Itching Verified 12/01/18 14:57 sulfamethoxazole Allergy Rash Verified 12/01/18 14:57 [From Bactrim] trimethoprim [From Bactrim] Allergy Rash Verified 12/01/18 14:57 morphine AdvReac Vomiting Verified 12/01/18 14:57 Home Medications Medication Instructions Recorded Confirmed Last Taken Type Insulin Glargine [Lantus VIAL] 15 unit SUB-Q DAILY 08/02/17 12/01/18 3 Days Ago History ~02/25/18 Torsemide [Demadex] 60 mg PO BID 08/02/17 12/01/18 3 Days Ago History ~02/25/18 Metoprolol [Lopressor] 100 mg PO BID 12/01/18 12/01/18 Unknown History Minoxidil [Loniten] 10 mg PO DAILY 12/01/18 12/01/18 Unknown History Pantoprazole [Protonix TAB] 20 mg PO DAILY 12/01/18 12/01/18 Unknown History cloNIDine [Catapres] 0.1 mg PO BID 12/01/18 12/01/18 Unknown History Active Meds: Active Medications Acetaminophen (Tylenol) 650 mg PO Q4H PRN PRN Reason: Pain MILD(1-3)/Fever >100.5/CASTILLO Clonidine HCl (Catapres) 0.2 mg PO BID [facility] Last Admin: 12/01/18 21:45 Dose: Not Given Documented by: Dextrose (D50w (25gm) Syringe) 25 ml IV PRN PRN PRN Reason: Hypoglycemia Heparin Sodium (Porcine) (Heparin) 5,000 unit SUB-Q Q12HR [facility] Last Admin: 12/01/18 22:47 Dose: 5,000 unit Documented by: Hydromorphone HCl (Dilaudid) 0.5 mg IV Q3H PRN PRN Reason: Pain , Severe (7-10) Dextrose/Sodium Chloride (D5/0.45ns) 1,000 mls @ 50 mls/hr IV DIRECT [facility] Last Admin: 12/02/18 08:35 Dose: 50 mls/hr Documented by: Sodium Chloride (Nacl 0.9%) 100 mls @ 999 mls/hr IV FRANCOIS PRN PRN Reason: Hypotension Insulin Glargine (Lantus) 10 units SUB-Q QHS [facility] Last Admin: 12/01/18 22:48 Dose: 10 units Documented by: Insulin Human Lispro (Humalog) 8 unit SUB-Q BID [facility] Last Admin: 12/01/18 22:49 Dose: 8 unit Documented by: Labetalol HCl (Normodyne) 200 mg PO BID [facility] Last Admin: 12/01/18 21:45 Dose: Not Given Documented by: Ondansetron HCl (Zofran) 4 mg IV Q8H PRN PRN Reason: Nausea And Vomiting Oxycodone/Acetaminophen (Percocet 5/325) 1 tab PO Q6H PRN PRN Reason: Pain, Moderate (4-6) Promethazine HCl (Phenergan) 25 mg PO Q6HR PRN PRN Reason: nausea or vomiting Last Admin: 12/01/18 19:05 Dose: 25 mg Documented by: Sodium Chloride (Sodium Chloride Flush Syringe 10 Ml) 10 ml IV BID [facility] Last Admin: 12/01/18 22:49 Dose: 10 ml Documented by: Sodium Chloride (Sodium Chloride Flush Syringe 10 Ml) 10 ml IV PRN PRN PRN Reason: LINE FLUSH Torsemide (Demadex) 60 mg PO BID@0600,1800 [facility] Last Admin: 12/02/18 05:26 Dose: 60 mg Documented by: Zolpidem Tartrate (Ambien) 5 mg PO QHS PRN PRN Reason: Sleep Last Admin: 12/01/18 22:55 Dose: 5 mg Documented by: Review of Systems All systems: negative Constitutional: fatigue, weakness, malaise Gastrointestinal: abdominal pain, melena Exam - Vital Signs Vital signs: Vital Signs Temp Pulse Resp BP Pulse Ox 98.1 F 84 14 147/57 98 12/01/18 14:19 12/01/18 14:19 12/01/18 14:19 12/01/18 14:19 12/01/18 14:19 - General Appearance General appearance: well-developed, well-nourished, appears stated age, chron ically ill EENT: ATNC, PERRL, mucous membranes moist Neck: Present: neck supple Respiratory: Clear to Ascultation Heart: regular, S1S2 Gastrointestinal: Present: normoactive bowel sounds Integumentary: no rash, other (2+ edema b/l LE ) Neurologic: no focal deficit, alert and oriented x3, strength 5/5, CN 3-12 intact Psychiatric: mood/affect appropriate, cooperative Results - Lab Results 12/02/18 06:01 12/02/18 06:01 Most recent lab results Calcium 9.0 mg/dL (8.4-10.2) 12/02/18 06:01 Assessment and Plan - Patient Problems (1) Severe anemia Current Visit: Yes Status: Acute Plan to address problem: s/p 3PRBC transfusion. to rule out GI bleed. cont EPO with HD (2) GI bleed Current Visit: Yes Status: Acute Qualifiers: Gastritis type: unspecified gastritis Plan to address problem: GI consulted. on protonix 40mg IV bid (3) ESRD (end stage renal disease) Current Visit: Yes Status: Chronic Plan to address problem: cont HD on TTS schdule (4) HTN (hypertension) Current Visit: Yes Status: Chronic Qualifiers: Hypertension type: essential hypertension Qualified Code(s): I10 - Essential (primary) hypertension Plan to address problem: resume home BP regimen. will increase UF as tolerated with HD (5) IDDM (insulin dependent diabetes mellitus) Current Visit: Yes Status: Chronic Plan to address problem: glucose control as per primary attending
[2018-12-02] MEDS: CATAPRES PO SCH ×3 (13:27→21:45)
[2018-12-02] MEDS: NORMODYNE PO SCH ×3 (13:27→21:44)
[2018-12-02] MEDS: HEPARIN SUB-Q SCH ×2 (13:27→21:46)
[2018-12-02] MEDS: HumaLOG SUB-Q SCH (13:27)
[2018-12-02] MEDS: SODIUM CHLORIDE FLUSH SYRINGE 10 ML IV SCH ×2 (13:28→21:47)
[2018-12-02] MEDS ORDERED: NACL 0.9 (PRIMING MACHINE ONLY DIALYSIS) MC ONE (13:45)
[2018-12-02] MEDS ORDERED: PROCRIT SUB-Q SCH (14:00)
--- NOTE | 2018-12-02 14:32 | Consultation ---
History of Present Illness - Reason for Consult Consult date: 12/02/18 GI bleed Requesting physician: MARIKA RAYGOZA - History of Present Illness Ms. Aguayo is a 53-year-old woman who has end-stage renal disease and is on dialysis. She was admitted after outpatient labs showed profound anemia with a hemoglobin of 5.6. Here, she was found to have dark Hemoccult-positive stool. GI consultation is obtained. Mr. Aguayo is well known to me and is status post an ERCP done on November 15 of this year with a sphincterotomy for elevated liver enzymes and presumed type II sphincter of Oddi dysfunction. That procedure was complicated by pancreatitis for which she was hospitalized here from November 16 through November 18. At time of discharge on November 18, her hemoglobin was 10.6. Patient states that for the last 3 days, she has noted that her stools have been black and tarry. She is still only going once a day as per usual. She has been having intermittent burning discomfort across her abdomen just below the umbilicus ever since the procedure. However, she did have some kind of intermittent pain even prior to the procedure, albeit milder, for which she w ould periodically take Rh[place]. She denies vomiting, and has chronic nausea x years. She denies fevers chills or sweats. She denies any other aspirin or non-steroidal usage. She denies prior known history of peptic ulcer disease or GI bleeding. She has had a recent colonoscopy that was unremarkable. Past History Past Medical History: anemia, diabetes, ESRD, hypertension, renal failure Past Surgical History: Other (AVF placement , ERCP on 11/15/18) Social history: lives with family Family history: diabetes, hypertension Medications and Allergies Allergies Allergy/AdvReac Type Severity Reaction Status Date / Time amlodipine Allergy Itching Verified 12/01/18 14:57 losartan Allergy Itching Verified 12/01/18 14:57 sulfamethoxazole Allergy Rash Verified 12/01/18 14:57 [From Bactrim] trimethoprim [From Bactrim] Allergy Rash Verified 12/01/18 14:57 morphine AdvReac Vomiting Verified 12/01/18 14:57 Home Medications Medication Instructions Recorded Confirmed Last Taken Type Insulin Glargine [Lantus VIAL] 15 unit SUB-Q DAILY 08/02/17 12/01/18 3 Days Ago History ~02/25/18 Torsemide [Demadex] 60 mg PO BID 08/02/17 12/01/18 3 Days Ago History ~02/25/18 Metoprolol [Lopressor] 100 mg PO BID 12/01/18 12/01/18 Unknown History Minoxidil [Loniten] 10 mg PO DAILY 12/01/18 12/01/18 Unknown History Pantoprazole [Protonix TAB] 20 mg PO DAILY 12/01/18 12/01/18 Unknown History cloNIDine [Catapres] 0.1 mg PO BID 12/01/18 12/01/18 Unknown History Active Meds: Active Medications Acetaminophen (Tylenol) 650 mg PO Q4H PRN PRN Reason: Pain MILD(1-3)/Fever >100.5/CASTILLO Clonidine HCl (Catapres) 0.2 mg PO BID [facility] Last Admin: 12/02/18 13:27 Dose: Not Given Documented by: Dextrose (D50w (25gm) Syringe) 25 ml IV PRN PRN PRN Reason: Hypoglycemia Epoetin Jacoby (Procrit) 10,000 unit SUB-Q FRANCOIS [facility] Stop: 12/12/18 13:59 Heparin Sodium (Porcine) (Heparin) 5,000 unit SUB-Q Q12HR [facility] Last Admin: 12/02/18 13:27 Dose: Not Given Documented by: Hydromorphone HCl (Dilaudid) 0.5 mg IV Q3H PRN PRN Reason: Pain , Severe (7-10) Sodium Chloride (Nacl 0.9%) 100 mls @ 999 mls/hr IV FRANCOIS PRN PRN Reason: Hypotension Insulin Glargine (Lantus) 10 units SUB-Q QHS [facility] Last Admin: 12/01/18 22:48 Dose: 10 units Documented by: Insulin Human Lispro (Humalog) 8 unit SUB-Q BID [facility] Last Admin: 12/02/18 13:27 Dose: Not Given Documented by: Labetalol HCl (Normodyne) 200 mg PO BID [facility] Last Admin: 12/02/18 13:27 Dose: Not Given Documented by: Ondansetron HCl (Zofran) 4 mg IV Q8H PRN PRN Reason: Nausea And Vomiting Oxycodone/Acetaminophen (Percocet 5/325) 1 tab PO Q6H PRN PRN Reason: Pain, Moderate (4-6) Pantoprazole Sodium (Protonix) 40 mg IV BID [facility] Promethazine HCl (Phenergan) 25 mg PO Q6HR PRN PRN Reason: nausea or vomiting Last Admin: 12/01/18 19:05 Dose: 25 mg Documented by: Sodium Chloride (Sodium Chloride Flush Syringe 10 Ml) 10 ml IV BID [facility] Last Admin: 12/02/18 13:28 Dose: 10 ml Documented by: Sodium Chloride (Sodium Chloride Flush Syringe 10 Ml) 10 ml IV PRN PRN PRN Reason: LINE FLUSH Torsemide (Demadex) 60 mg PO BID@0600,1800 [facility] Last Admin: 12/02/18 05:26 Dose: 60 mg Documented by: Zolpidem Tartrate (Ambien) 5 mg PO QHS PRN PRN Reason: Sleep Last Admin: 12/01/18 22:55 Dose: 5 mg Documented by: Review of Systems All systems: negative (as noted above.) Exam - Constitutional Vitals: Temp Pulse Resp BP Pulse Ox 97.7 F 80 18 190/97 94 12/02/18 11:45 12/02/18 13:30 12/02/18 11:45 12/02/18 13:30 12/02/18 05:11 General appearance: Present: no acute distress, other (fatigued) - EENT Eyes: Present: PERRL, EOM intact ENT: hearing intact - Neck Neck: Present: supple - Respiratory Respiratory effort: normal Respiratory: bilateral: CTA - Cardiovascular Rhythm: regular Heart Sounds: Present: S1 & S2 - Extremities Extremities: No edema - Abdominal General gastrointestinal: Present: soft, tender (Mild diffuse) Results - Labs CBC & Chem 7: 12/02/18 06:01 12/02/18 06:01 Labs: Abnormal lab results 12/01/18 12/01/18 12/01/18 Range/Units 15:22 15:22 15:22 RBC 2.28 L (3.65-5.03) M/mm3 Hgb 5.6 L* (10.1-14.3) gm/dl Hct 17.7 L* (30.3-42.9) % MCV 77 L (79-97) fl MCH 25 L (28-32) pg RDW 22.4 H (13.2-15.2) % Seg Neuts % (Manual) 76.0 H (40.0-70.0) % Lymphocytes % (Manual) 8.0 L (13.4-35.0) % Monocytes % (Manual) (0.0-7.3) % Basophils % (Manual) 2.0 H (0.0-1.8) % Nucleated RBC % 13.0 H (0.0-0.9) % Lymphocytes # (Manual) 0.8 L (1.2-5.4) K/mm3 Basophils # (Manual) 0.2 H (0.0-0.1) K/mm3 Chloride 95.6 L (98-107) mmol/L Carbon Dioxide 36 H (22-30) mmol/L Creatinine 2.2 H (0.7-1.2) mg/dL Glucose 234 H (65-100) mg/dL POC Glucose (70-105) Hemoglobin A1c (4-6) % Total Bilirubin 3.90 H (0.1-1.2) mg/dL Direct Bilirubin 2.4 H (0-0.2) mg/dL Alkaline Phosphatase 421 H (35-129) units/L Albumin (3.9-5) g/dL Crossmatch See Detail 12/01/18 12/01/18 12/02/18 Range/Units 15:22 21:10 06:01 RBC 3.08 L (3.65-5.03) M/mm3 Hgb 8.2 L (10.1-14.3) gm/dl Hct 25.2 L D (30.3-42.9) % MCV (79-97) fl MCH 27 L (28-32) pg RDW 20.3 H (13.2-15.2) % Seg Neuts % (Manual) 76.0 H (40.0-70.0) % Lymphocytes % (Manual) 10.0 L (13.4-35.0) % Monocytes % (Manual) 9.0 H (0.0-7.3) % Basophils % (Manual) (0.0-1.8) % Nucleated RBC % (0.0-0.9) % Lymphocytes # (Manual) 0.8 L (1.2-5.4) K/mm3 Basophils # (Manual) (0.0-0.1) K/mm3 Chloride (98-107) mmol/L Carbon Dioxide (22-30) mmol/L Creatinine (0.7-1.2) mg/dL Glucose (65-100) mg/dL POC Glucose 325 H (70-105) Hemoglobin A1c 7.6 H (4-6) % Total Bilirubin (0.1-1.2) mg/dL Direct Bilirubin (0-0.2) mg/dL Alkaline Phosphatase (35-129) units/L Albumin (3.9-5) g/dL Crossmatch 12/02/18 12/02/18 12/02/18 Range/Units 06:01 07:58 11:26 RBC (3.65-5.03) M/mm3 Hgb (10.1-14.3) gm/dl Hct (30.3-42.9) % MCV (79-97) fl MCH (28-32) pg RDW (13.2-15.2) % Seg Neuts % (Manual) (40.0-70.0) % Lymphocytes % (Manual) (13.4-35.0) % Monocytes % (Manual) (0.0-7.3) % Basophils % (Manual) (0.0-1.8) % Nucleated RBC % (0.0-0.9) % Lymphocytes # (Manual) (1.2-5.4) K/mm3 Basophils # (Manual) (0.0-0.1) K/mm3 Chloride 95.9 L (98-107) mmol/L Carbon Dioxide 32 H (22-30) mmol/L Creatinine 3.2 H (0.7-1.2) mg/dL Glucose 61 L (65-100) mg/dL POC Glucose 60 L 56 L (70-105) Hemoglobin A1c (4-6) % Total Bilirubin 3.30 H (0.1-1.2) mg/dL Direct Bilirubin (0-0.2) mg/dL Alkaline Phosphatase 394 H (35-129) units/L Albumin 3.5 L (3.9-5) g/dL Crossmatch Assessment and Plan 1. Anemia/GI bleed - etiology unclear. Describes melena x 3 days, but BUN not elevated c/w blood in GI tract. However, pt could well have PUD, vs a delayed post-sphincterotomy bleed, vs a LGI source of bleed. Has responded well to transfusion. - at this point, would monitor H/H and support with transfusions - IV PPI - decide regarding endoscopic evaluation based on course 2. Abd burning pain - intermittent. Etiology unclear. No obvious pathophysiologic relation to recent ERCP. - will get CT to assess for resolution of acute pancreatitis. - monitor for response to PPI.
[2018-12-02] MEDS: AMBIEN PO PRN (21:44)
[2018-12-02] MEDS: PROTONIX IV SCH (21:45)
[2018-12-03] MEDS: HumaLOG SUB-Q SCH ×3 (00:15→21:12)
[2018-12-03] MEDS: LANTUS SUB-Q SCH ×2 (00:15→21:13)
[2018-12-03 04:53] LABS: Hematocrit 26.1 % (30.3-42.9); Hemoglobin 8.3 gm/dl (10.1-14.3); Mean Corpuscular HGB Conc 32 % (30-34); Mean Corpuscular Volume 82 fl (79-97); Platelet Count 208 K/mm3 (140-440); Red Blood Count 3.17 M/mm3 (3.65-5.03)
[2018-12-03 04:54] LABS: Red Cell Distribution Width 21.2 % (13.2-15.2)
[2018-12-03 05:09] LABS: Albumin 3.2 g/dL (3.9-5); Calcium 8.7 mg/dL (8.4-10.2)
[2018-12-03] MEDS: DEMADEX PO SCH ×2 (05:59→17:46)
[2018-12-03 06:17] LABS: Basophils % (Manual) 0 % (0.0-1.8); Total Cells Counted 100
[2018-12-03 06:18] LABS: Anisocytosis 1+
[2018-12-03 06:21] LABS: Target Cells 1+
[2018-12-03 06:22] LABS: Platelet Estimate Consistent w Auto
--- NOTE | 2018-12-03 07:27 | Progress Note ---
Assessment and Plan - Patient Problems (1) Severe anemia Current Visit: Yes Status: Acute Plan to address problem: s/p 3PRBC transfusion, Hb improved to 8.3. to rule out GI bleed. cont EPO with HD (2) GI bleed Current Visit: Yes Status: Acute Qualifiers: Gastritis type: unspecified gastritis Plan to address problem: on protonix 40mg IV bid. follow GI recommendations (3) ESRD (end stage renal disease) Current Visit: Yes Status: Chronic Plan to address problem: cont HD on TTS schdule (4) HTN (hypertension) Current Visit: Yes Status: Chronic Qualifiers: Hypertension type: essential hypertension Qualified Code(s): I10 - Essential (primary) hypertension Plan to address problem: resume home BP regimen. will increase UF as tolerated with HD (5) IDDM (insulin dependent diabetes mellitus) Current Visit: Yes Status: Chronic Plan to address problem: glucose control as per primary attending Subjective Date of service: 12/03/18 Principal diagnosis: GI bleeding, end-stage renal disease on hemodialysis, anem ia Interval history: Pt awake, alert, in no acute distress, no melena/BRBPR reported today. Objective - Vital Signs Vital signs: Vital Signs - 12hr 12/02/18 12/02/18 12/02/18 21:44 21:45 22:00 Temperature Pulse Rate 73 73 Respiratory 18 Rate Blood Pressure 119/52 119/52 O2 Sat by Pulse 96 Oximetry 12/02/18 12/03/18 23:16 05:28 Temperature 98.9 F 98.7 F Pulse Rate 70 65 Respiratory 18 20 Rate Blood Pressure 112/45 137/62 O2 Sat by Pulse 96 95 Oximetry - General Appearance General appearance: well-developed, well-nourished, appears stated age EENT: ATNC, PERRL, mucous membranes moist Neck: no JVD Respiratory: Present: Clear to Ascultation Cardiology: regular, S1S2 Gastrointestinal: normoactive bowel sounds Integumentary: no rash, other (2+ edema b/l LE ) Neurologic: no focal deficit, alert and oriented x3, strength 5/5, CN 3-12 intact Psychiatric: mood/affect appropriate, cooperative - Lab 12/03/18 03:42 12/03/18 03:42 Most recent lab results Calcium 8.7 mg/dL (8.4-10.2) 12/03/18 03:42 Medications & Allergies - Medications Allergies/Adverse Reactions: Allergies amlodipine Allergy (Verified 12/01/18 14:57) Itching losartan Allergy (Verified 12/01/18 14:57) Itching sulfamethoxazole [From Bactrim] Allergy (Verified 12/01/18 14:57) Rash trimethoprim [From Bactrim] Allergy (Verified 12/01/18 14:57) Rash morphine Adverse Reaction (Verified 12/01/18 14:57) Vomiting Home Medications: Home Medications Medication Instructions Recorded Confirmed Last Taken Type Insulin Glargine [Lantus VIAL] 15 unit SUB-Q DAILY 08/02/17 12/01/18 3 Days Ago History ~02/25/18 Torsemide [Demadex] 60 mg PO BID 08/02/17 12/01/18 3 Days Ago History ~02/25/18 Metoprolol [Lopressor] 100 mg PO BID 12/01/18 12/01/18 Unknown History Minoxidil [Loniten] 10 mg PO DAILY 12/01/18 12/01/18 Unknown History Pantoprazole [Protonix TAB] 20 mg PO DAILY 12/01/18 12/01/18 Unknown History cloNIDine [Catapres] 0.1 mg PO BID 12/01/18 12/01/18 Unknown History Active Medications: Generic Name Dose Route Start Last Admin Trade Name Freq PRN Reason Stop Dose Admin Acetaminophen 650 mg 12/01/18 17:33 Tylenol PO Q4H PRN Pain MILD(1-3)/Fever >100.5/CASTILLO Clonidine HCl 0.1 mg 12/03/18 10:00 Catapres PO BID [facility] Dextrose 25 ml 12/02/18 08:17 D50w (25gm) Syringe IV PRN PRN Hypoglycemia Epoetin Jacoby 10,000 unit 12/02/18 14:00 Procrit SUB-Q 12/12/18 13:59 FRANCOIS FATMATA Heparin Sodium (Porcine) 5,000 unit 12/01/18 22:00 12/02/18 21:46 Heparin SUB-Q 5,000 unit Q12HR FATMATA Administration Hydromorphone HCl 0.5 mg 12/01/18 17:33 Dilaudid IV Q3H PRN Pain , Severe (7-10) Sodium Chloride 100 mls @ 999 mls/hr 12/02/18 08:37 Nacl 0.9% IV FRANCOIS PRN Hypotension Insulin Glargine 10 units 12/01/18 22:00 12/03/18 00:15 Lantus SUB-Q 10 units QHS [facility] Administration Insulin Human Lispro 8 unit 12/01/18 22:00 12/03/18 00:15 Humalog SUB-Q 8 unit BID [facility] Administration Metoprolol Tartrate 100 mg 12/03/18 10:00 Lopressor PO BID [facility] Minoxidil 10 mg 12/03/18 10:00 Loniten PO DAILY [facility] Ondansetron HCl 4 mg 12/01/18 17:33 Zofran IV Q8H PRN Nausea And Vomiting Oxycodone/Acetaminophen 1 tab 12/01/18 17:33 12/02/18 15:27 Percocet 5/325 PO 1 tab Q6H PRN Administration Pain, Moderate (4-6) Pantoprazole Sodium 40 mg 12/02/18 22:00 12/02/18 21:45 Protonix IV 40 mg BID [facility] Administration Promethazine HCl 25 mg 12/01/18 17:35 12/01/18 19:05 Phenergan PO 25 mg Q6HR PRN Administration nausea or vomiting Sodium Chloride 10 ml 12/01/18 22:00 12/02/18 21:47 Sodium Chloride Flush Syringe 10 Ml IV 10 ml BID FATMATA Administration Sodium Chloride 10 ml 12/01/18 17:33 Sodium Chloride Flush Syringe 10 Ml IV PRN PRN LINE FLUSH Torsemide 60 mg 12/02/18 06:00 12/03/18 05:59 Demadex PO Not Given BID@0600,1800 [facility] Zolpidem Tartrate 5 mg 12/01/18 17:35 12/02/18 21:44 Ambien PO 5 mg QHS PRN Administration Sleep
[2018-12-03] MEDS: ZOFRAN IV PRN ×2 (07:47→17:44)
--- NOTE | 2018-12-03 11:26 | Cat Scan Report ---
FINAL REPORT EXAM: CT ABDOMEN PELVIS WO CON HISTORY: f/u pancreatitis, periumbilical pain TECHNIQUE: CT abdomen and pelvis performed. Images extend from diaphragm to pubic symphysis. No IV contrast was administered. Oral contrast was administered. PRIORS: 11/16/2018 FINDINGS: There are coronary artery atherosclerotic calcifications. There are very small pleural effusions bilaterally. There is a moderate amount of ascites which has worsened in the interval. There is generalized edema as seen previously. There are atherosclerotic vascular calcifications throughout the abdomen. There is cholelithiasis. There is no abdominal aortic aneurysm. There is no evidence of intestinal obstruction. Proximal appendix is normal caliber. Distal appendix not visualized. The bladder is unremarkable. IMPRESSION: There are atherosclerotic calcifications throughout abdomen and pelvis. There is worsened moderate as cites and generalized edema. Cholelithiasis.
--- NOTE | 2018-12-03 12:02 | Progress Note ---
Assessment and Plan 53 yo female with hx of 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 Feels weak and SOB on minimal exertion. Also having dark stools. On admission, hemoglobin was 5.6. Patient also had positive Hemoccult stool. No fever or chills. No hematemesis. Has a dental epigastric pain. Was given blood penicillin of 2 units. Hemoglobin improved to 10.6. GI consulted. Patient hasn't ERCP in 11/15/2018. Showed sphincter of Oddi dysfunction. Had post procedure pancreatitis that result presents of discharge at the time on 11/18/2018. Has been having dark tarry stool. - Patient Problems (1) GI bleed Status post Transfusion 2 units of PRBS IV protonix initiated For CT abdomen per GI today (2) ESRD (end stage renal disease) Current Visit: Yes Status: Chronic Plan to address problem: CONT HD (3) Severe anemia from acute blood loss Current Visit: Yes Status: Acute Plan to address problem: s/p 2 units of Blood (4) IDDM (insulin dependent diabetes mellitus) Current Visit: Yes Status: Chronic Plan to address problem: COnt insulin coverage Consistent divided diet (5) HTN (hypertension) Current Visit: Yes Status: Chronic Qualifiers: Hypertension type: essential hypertension Qualified Code(s): I10 - Essential (primary) hypertension Plan to address problem: Cont antihpertensives (7) HLD (hyperlipidemia) Current Visit: Yes Status: Chronic Qualifiers: Hyperlipidemia type: mixed hyperlipidemia Qualified Code(s): E78.2 - Mixed hyperlipidemia Plan to address problem: Hold statins for now (8) DVT prophylaxis Current Visit: Yes Status: Acute Plan to address problem: On scd's only Disposition: Mid discharge tomorrow if CT scan of the abdomen is unremarkable for any evidence of appetite is acute pancreatitis or any odd optimizing Subjective Date of service: 12/03/18 Principal diagnosis: GI bleeding, end-stage renal disease on hemodialysis, anemia Interval history: Patient seen and examined. Complaint intermittent abdominal pain. No active GI bleeding. No nausea no vomiting, no hematemesis or melena. Objective - Exam Narrative Exam: Constitutional: Well-nourished well-developed. In no distress Head: Normocephalic atraumatic Eyes: Pupils are equal round and reactive to light Nose: No enlarged turbinates, no septal deviation. Mouth: Moist mucous membranes. Neck: Supple no thyromegaly. No bruit. No JVD Heart: Regular rate and rhythm, S1-S2 normal. No rubs murmurs or gallop Lungs: Clear to auscultation bilaterally. no rales or rhonchi Abdomen: Soft, nontender. Bowel sound are present. Extremities: No edema, no cyanosis, no clubbing. Neuro: Alert oriented Oriented x3. No focal sensory or motor deficit. Skin: No rashes or hyperpigmented spots Musculoskeletal system: No joint pain or swelling Hematological: No petechia or subcutanous hemorrhages. Immunological: No multiple septic spots on the skin Lymphatic: No generalized lymphadenopathy Psychiatry: Euthymic. Calm. - Constitutional Vitals: Vital Signs - 12hr 12/03/18 05:28 Temperature 98.7 F Pulse Rate 65 Respiratory 20 Rate Blood Pressure 137/62 O2 Sat by Pulse 95 Oximetry - Labs CBC & Chem 7: 12/03/18 03:42 12/03/18 03:42 Labs: Abnormal lab results 12/02/18 12/02/18 12/03/18 Range/Units 16:12 21:54 03:42 RBC 3.17 L (3.65-5.03) M/mm3 Hgb 8.3 L (10.1-14.3) gm/dl Hct 26.1 L (30.3-42.9) % MCH 26 L (28-32) pg RDW 21.2 H (13.2-15.2) % Seg Neuts % (Manual) 81.0 H (40.0-70.0) % Lymphocytes % (Manual) 10.0 L (13.4-35.0) % Monocytes % (Manual) 8.0 H (0.0-7.3) % Lymphocytes # (Manual) 0.8 L (1.2-5.4) K/mm3 Chloride (98-107) mmol/L Carbon Dioxide (22-30) mmol/L Creatinine (0.7-1.2) mg/dL Glucose (65-100) mg/dL POC Glucose 107 H 324 H (70-105) Total Bilirubin (0.1-1.2) mg/dL AST (5-40) units/L Alkaline Phosphatase (35-129) units/L Total Protein (6.3-8.2) g/dL Albumin (3.9-5) g/dL 12/03/18 Range/Units 03:42 RBC (3.65-5.03) M/mm3 Hgb (10.1-14.3) gm/dl Hct (30.3-42.9) % MCH (28-32) pg RDW (13.2-15.2) % Seg Neuts % (Manual) (40.0-70.0) % Lymphocytes % (Manual) (13.4-35.0) % Monocytes % (Manual) (0.0-7.3) % Lymphocytes # (Manual) (1.2-5.4) K/mm3 Chloride 95.2 L (98-107) mmol/L Carbon Dioxide 31 H (22-30) mmol/L Creatinine 3.3 H (0.7-1.2) mg/dL Glucose 215 H (65-100) mg/dL POC Glucose (70-105) Total Bilirubin 2.90 H (0.1-1.2) mg/dL AST 43 H (5-40) units/L Alkaline Phosphatase 418 H (35-129) units/L Total Protein 6.2 L (6.3-8.2) g/dL Albumin 3.2 L (3.9-5) g/dL
[2018-12-03] MEDS: CATAPRES PO SCH ×2 (12:17→21:12)
[2018-12-03] MEDS: HEPARIN SUB-Q SCH ×2 (12:18→21:16)
[2018-12-03] MEDS: LONITEN PO SCH (12:19)
[2018-12-03] MEDS: PROTONIX IV SCH ×2 (12:19→21:16)
[2018-12-03] MEDS: LOPRESSOR PO SCH ×2 (12:19→21:13)
[2018-12-03] MEDS: SODIUM CHLORIDE FLUSH SYRINGE 10 ML IV SCH ×2 (12:20→21:16)
--- NOTE | 2018-12-03 17:06 | Progress Note ---
Assessment and Plan 1. Anemia/GI bleed - etiology unclear. Describes melena x 3 days, but BUN not elevated c/w blood in GI tract. However, pt could well have PUD, vs a delayed post-sphincterotomy bleed, vs a LGI source of bleed. Has responded well to transfusion. Had recent colonoscopy by Dr. Munson. - monitor H/H and support with transfusions - IV PPI - decide regarding endoscopic evaluation based on course 2. Abd burning pain - intermittent. Etiology unclear. No obvious pathophysiologic relation to recent ERCP. CT shows ascites, which is likely r elated to ESRD. Lipase is normal. - will review pancreas on CT, since not noted on report. - monitor for response to PPI. Subjective Date of service: 12/03/18 Principal diagnosis: GI bleeding, end-stage renal disease on hemodialysis, anemia Interval history: Pt has mild nausea. Shahida po well. No signficant abd pain. No BM. Objective - Constitutional Vitals: Vital Signs - 12hr 12/03/18 12/03/18 05:28 12:05 Temperature 98.7 F 98.0 F Pulse Rate 65 67 Respiratory 20 18 Rate Blood Pressure 137/62 177/75 O2 Sat by Pulse 95 97 Oximetry General appearance: Present: no acute distress - EENT Eyes: PERRL, EOM intact ENT: hearing intact - Respiratory Respiratory effort: normal - Gastrointestinal General gastrointestinal: Present: soft, tender (Mild diffuse) - Labs CBC & Chem 7: 12/03/18 03:42 12/03/18 03:42 Labs: Abnormal lab results 12/02/18 12/03/18 12/03/18 Range/Units 21:54 03:42 03:42 RBC 3.17 L (3.65-5.03) M/mm3 Hgb 8.3 L (10.1-14.3) gm/dl Hct 26.1 L (30.3-42.9) % MCH 26 L (28-32) pg RDW 21.2 H (13.2-15.2) % Seg Neuts % (Manual) 81.0 H (40.0-70.0) % Lymphocytes % (Manual) 10.0 L (13.4-35.0) % Monocytes % (Manual) 8.0 H (0.0-7.3) % Lymphocytes # (Manual) 0.8 L (1.2-5.4) K/mm3 Chloride 95.2 L (98-107) mmol/L Carbon Dioxide 31 H (22-30) mmol/L Creatinine 3.3 H (0.7-1.2) mg/dL Glucose 215 H (65-100) mg/dL POC Glucose 324 H (70-105) Total Bilirubin 2.90 H (0.1-1.2) mg/dL AST 43 H (5-40) units/L Alkaline Phosphatase 418 H (35-129) units/L Total Protein 6.2 L (6.3-8.2) g/dL Albumin 3.2 L (3.9-5) g/dL 12/03/18 12/03/18 Range/Units 07:49 11:39 RBC (3.65-5.03) M/mm3 Hgb (10.1-14.3) gm/dl Hct (30.3-42.9) % MCH (28-32) pg RDW (13.2-15.2) % Seg Neuts % (Manual) (40.0-70.0) % Lymphocytes % (Manual) (13.4-35.0) % Monocytes % (Manual) (0.0-7.3) % Lymphocytes # (Manual) (1.2-5.4) K/mm3 Chloride (98-107) mmol/L Carbon Dioxide (22-30) mmol/L Creatinine (0.7-1.2) mg/dL Glucose (65-100) mg/dL POC Glucose 180 H 251 H (70-105) Total Bilirubin (0.1-1.2) mg/dL AST (5-40) units/L Alkaline Phosphatase (35-129) units/L Total Protein (6.3-8.2) g/dL Albumin (3.9-5) g/dL Medications & Allergies - Medications Allergies/Adverse Reactions: Allergies amlodipine Allergy (Verified 12/01/18 14:57) Itching losartan Allergy (Verified 12/01/18 14:57) Itching sulfamethoxazole [From Bactrim] Allergy (Verified 12/01/18 14:57) Rash trimethoprim [From Bactrim] Allergy (Verified 12/01/18 14:57) Rash morphine Adverse Reaction (Verified 12/01/18 14:57) Vomiting Home Medications: Home Medications Medication Instructions Recorded Confirmed Last Taken Type Insulin Glargine [Lantus VIAL] 15 unit SUB-Q DAILY 08/02/17 12/01/18 3 Days Ago History ~02/25/18 Torsemide [Demadex] 60 mg PO BID 08/02/17 12/01/18 3 Days Ago History ~02/25/18 Metoprolol [Lopressor] 100 mg PO BID 12/01/18 12/01/18 Unknown History Minoxidil [Loniten] 10 mg PO DAILY 12/01/18 12/01/18 Unknown History Pantoprazole [Protonix TAB] 20 mg PO DAILY 12/01/18 12/01/18 Unknown History cloNIDine [Catapres] 0.1 mg PO BID 12/01/18 12/01/18 Unknown History Active Medications: Generic Name Dose Route Start Last Admin Trade Name Freq PRN Reason Stop Dose Admin Acetaminophen 650 mg 12/01/18 17:33 Tylenol PO Q4H PRN Pain MILD(1-3)/Fever >100.5/CASTILLO Clonidine HCl 0.1 mg 12/03/18 10:00 12/03/18 12:17 Catapres PO Not Given BID [facility]MATA Dextrose 25 ml 12/02/18 08:17 D50w (25gm) Syringe IV PRN PRN Hypoglycemia Epoetin Jacoby 10,000 unit 12/02/18 14:00 Procrit SUB-Q 12/12/18 13:59 FRANCOIS FATMATA Heparin Sodium (Porcine) 5,000 unit 12/01/18 22:00 12/03/18 12:18 Heparin SUB-Q 5,000 unit Q12HR [facility] Administration Hydromorphone HCl 0.5 mg 12/01/18 17:33 Dilaudid IV Q3H PRN Pain , Severe (7-10) Sodium Chloride 100 mls @ 999 mls/hr 12/02/18 08:37 Nacl 0.9% IV FRANCOIS PRN Hypotension Insulin Glargine 10 units 12/01/18 22:00 12/03/18 00:15 Lantus SUB-Q 10 units QHS [facility] Administration Insulin Human Lispro 8 unit 12/01/18 22:00 12/03/18 12:20 Humalog SUB-Q 8 unit BID [facility] Administration Metoprolol Tartrate 100 mg 12/03/18 10:00 12/03/18 12:19 Lopressor PO 100 mg BID [facility] Administration Minoxidil 10 mg 12/03/18 10:00 12/03/18 12:19 Loniten PO Not Given DAILY [facility] Ondansetron HCl 4 mg 12/01/18 17:33 12/03/18 07:47 Zofran IV 4 mg Q8H PRN Administration Nausea And Vomiting Oxycodone/Acetaminophen 1 tab 12/01/18 17:33 12/02/18 15:27 Percocet 5/325 PO 1 tab Q6H PRN Administration Pain, Moderate (4-6) Pantoprazole Sodium 40 mg 12/02/18 22:00 12/03/18 12:19 Protonix IV 40 mg BID [facility] Administration Promethazine HCl 25 mg 12/01/18 17:35 12/01/18 19:05 Phenergan PO 25 mg Q6HR PRN Administration nausea or vomiting Sodium Chloride 10 ml 12/01/18 22:00 12/03/18 12:20 Sodium Chloride Flush Syringe 10 Ml IV 10 ml BID [facility] Administration Sodium Chloride 10 ml 12/01/18 17:33 Sodium Chloride Flush Syringe 10 Ml IV PRN PRN LINE FLUSH Torsemide 60 mg 12/02/18 06:00 12/03/18 05:59 Demadex PO Not Given BID@0600,1800 [facility] Zolpidem Tartrate 5 mg 12/01/18 17:35 12/02/18 21:44 Ambien PO 5 mg QHS PRN Administration Sleep
[2018-12-03] MEDS: PHENERGAN PO PRN (18:53)
[2018-12-03] MEDS: AMBIEN PO PRN (21:16)
[2018-12-04 06:02] LABS: Hematocrit 25.9 % (30.3-42.9); Hemoglobin 8.4 gm/dl (10.1-14.3); Mean Corpuscular HGB Conc 32 % (30-34); Mean Corpuscular Volume 82 fl (79-97); Platelet Count 224 K/mm3 (140-440); Red Blood Count 3.16 M/mm3 (3.65-5.03)
[2018-12-04 06:03] LABS: Red Cell Distribution Width 20.9 % (13.2-15.2)
[2018-12-04 06:26] LABS: Albumin 3.2 g/dL (3.9-5); Calcium 8.7 mg/dL (8.4-10.2)
[2018-12-04] MEDS: DEMADEX PO SCH ×2 (06:31→17:52)
[2018-12-04 07:17] LABS: Total Cells Counted 100
[2018-12-04 07:18] LABS: Anisocytosis 1+; Ovalocytes Few; Platelet Estimate Consistent w Auto; Poikilocytosis 1+; Target Cells 1+; Tear Drop Cells Rare
[2018-12-04] MEDS: CATAPRES PO SCH (10:00)
[2018-12-04] MEDS: LOPRESSOR PO SCH ×2 (10:00→22:54)
[2018-12-04] MEDS: PROTONIX IV SCH ×2 (10:50→22:59)
[2018-12-04] MEDS: HEPARIN SUB-Q SCH (10:50)
[2018-12-04] MEDS: LONITEN PO SCH (10:50)
[2018-12-04] MEDS: HumaLOG SUB-Q SCH ×3 (10:51→23:00)
[2018-12-04] MEDS: SODIUM CHLORIDE FLUSH SYRINGE 10 ML IV SCH (10:54)
--- NOTE | 2018-12-04 11:13 | Progress Note ---
Assessment and Plan - Patient Problems (1) Severe anemia Current Visit: Yes Status: Acute Plan to address problem: s/p 3PRBC transfusion, Hb stable at 8.4. to rule out GI bleed. cont EPO with HD (2) GI bleed Current Visit: Yes Status: Acute Qualifiers: Gastritis type: unspecified gastritis Plan to address problem: on protonix 40mg IV bid. follow GI recommendations (3) ESRD (end stage renal disease) Current Visit: Yes Status: Chronic Plan to address problem: cont HD on TTS schdule (4) HTN (hypertension) Current Visit: Yes Status: Chronic Qualifiers: Hypertension type: essential hypertension Qualified Code(s): I10 - Essential (primary) hypertension Plan to address problem: resume home BP regimen. will increase UF as tolerated with HD (5) IDDM (insulin dependent diabetes mellitus) Current Visit: Yes Status: Chronic Plan to address problem: glucose control as per primary attending Subjective Date of service: 12/04/18 Principal diagnosis: GI bleeding, end-stage renal disease on hemodialysis, anemia Interval history: Pt awake, alert, in no acute distress, no melena/BRBPR reported today. Objective - Vital Signs Vital signs: Vital Signs - 12hr 12/04/18 12/04/18 00:34 04:45 Temperature 98.1 F Pulse Rate 67 72 Respiratory 18 Rate Blood Pressure 100/45 O2 Sat by Pulse 96 Oximetry - General Appearance General appearance: well-developed, well-nourished, appears stated age EENT: ATNC, PERRL, mucous membranes moist Neck: no JVD Respiratory: Present: Clear to Ascultation Cardiology: regular, S1S2 Gastrointestinal: normoactive bowel sounds Integumentary: no rash, other (+ 1 edema b/l LE ) Neurologic: no focal deficit, alert and oriented x3, strength 5/5, CN 3-12 intact Psychiatric: mood/affect appropriate, cooperative - Lab 12/04/18 05:09 12/04/18 05:09 Most recent lab results Calcium 8.7 mg/dL (8.4-10.2) 12/04/18 05:09 Medications & Allergies - Medications Allergies/Adverse Reactions: Allergies amlodipine Allergy (Verified 12/01/18 14:57) Itching losartan Allergy (Verified 12/01/18 14:57) Itching sulfamethoxazole [From Bactrim] Allergy (Verified 12/01/18 14:57) Rash trimethoprim [From Bactrim] Allergy (Verified 12/01/18 14:57) Rash morphine Adverse Reaction (Verified 12/01/18 14:57) Vomiting Home Medications: Home Medications Medication Instructions Recorded Confirmed Last Taken Type Insulin Glargine [Lantus VIAL] 15 unit SUB-Q DAILY 08/02/17 12/01/18 3 Days Ago History ~02/25/18 Torsemide [Demadex] 60 mg PO BID 08/02/17 12/01/18 3 Days Ago History ~02/25/18 Metoprolol [Lopressor] 100 mg PO BID 12/01/18 12/01/18 Unknown History Minoxidil [Loniten] 10 mg PO DAILY 12/01/18 12/01/18 Unknown History Pantoprazole [Protonix TAB] 20 mg PO DAILY 12/01/18 12/01/18 Unknown History cloNIDine [Catapres] 0.1 mg PO BID 12/01/18 12/01/18 Unknown History Active Medications: Generic Name Dose Route Start Last Admin Trade Name Freq PRN Reason Stop Dose Admin Acetaminophen 650 mg 12/01/18 17:33 Tylenol PO Q4H PRN Pain MILD(1-3)/Fever >100.5/CASTILLO Clonidine HCl 0.1 mg 12/03/18 10:00 12/03/18 21:12 Catapres PO Not Given BID [facility] Dextrose 25 ml 12/02/18 08:17 D50w (25gm) Syringe IV PRN PRN Hypoglycemia Epoetin Jacoby 10,000 unit 12/02/18 14:00 Procrit SUB-Q 12/12/18 13:59 FRANCOIS FATMATA Heparin Sodium (Porcine) 5,000 unit 12/01/18 22:00 12/04/18 10:50 Heparin SUB-Q 5,000 unit Q12HR [facility] Administration Hydromorphone HCl 0.5 mg 12/01/18 17:33 Dilaudid IV Q3H PRN Pain , Severe (7-10) Sodium Chloride 100 mls @ 999 mls/hr 12/02/18 08:37 Nacl 0.9% IV FRANCOIS PRN Hypotension Insulin Glargine 10 units 12/01/18 22:00 12/03/18 21:13 Lantus SUB-Q Not Given QHS [facility] Insulin Human Lispro 8 unit 12/01/18 22:00 12/04/18 10:51 Humalog SUB-Q 8 unit BID [facility] Administration Metoprolol Tartrate 100 mg 12/03/18 10:00 12/03/18 21:13 Lopressor PO Not Given BID [facility] Minoxidil 10 mg 12/03/18 10:00 12/04/18 10:50 Loniten PO 10 mg DAILY [facility] Administration Ondansetron HCl 4 mg 12/01/18 17:33 12/03/18 17:44 Zofran IV 4 mg Q8H PRN Administration Nausea And Vomiting Oxycodone/Acetaminophen 1 tab 12/01/18 17:33 12/02/18 15:27 Percocet 5/325 PO 1 tab Q6H PRN Administration Pain, Moderate (4-6) Pantoprazole Sodium 40 mg 12/02/18 22:00 12/04/18 10:50 Protonix IV 40 mg BID [facility] Administration Promethazine HCl 25 mg 12/01/18 17:35 12/03/18 18:53 Phenergan PO 25 mg Q6HR PRN Administration nausea or vomiting Sodium Chloride 10 ml 12/01/18 22:00 12/04/18 10:54 Sodium Chloride Flush Syringe 10 Ml IV 10 ml BID [facility] Administration Sodium Chloride 10 ml 12/01/18 17:33 Sodium Chloride Flush Syringe 10 Ml IV PRN PRN LINE FLUSH Torsemide 60 mg 12/02/18 06:00 12/04/18 06:31 Demadex PO 60 mg BID@0600,1800 [facility] Administration Zolpidem Tartrate 5 mg 12/01/18 17:35 12/03/18 21:16 Ambien PO 5 mg QHS PRN Administration Sleep
--- NOTE | 2018-12-04 13:29 | Gastroenterology Progress Note ---
<PATTI MA - Last Filed: 12/04/18 13:33> Assessment and Plan 1.anemia/GI bleed -H/H 8.4/25.9-stable -continue to monitor H/H and transfuse as needed -no active signs of bleeding -etiology- likely delapyed post-shincterotomy bleed vs PUD vs other (LGI source- recent colonoscopy by Dr. Munson) -no plans for endoscopy at this time, unless over bleeding develops -continue PPI and supportive care 2.abd burning pain -etiology unclear- no obvious pathophysiologic relation to recent ERCP -CT showed ascites- etiology unclear-possibly related to ESRD vs other. Will order a diagnosis/therapeutic paracentesis for further evaluation -clinically, patient reports feeling better today with abd pain and nausea improved. Tolerating diet. -continue to trend labs and supportive care -will follow Subjective Date of service: 12/04/18 Principal diagnosis: anemia Interval history: Patient resting in bed this morning w/o acute distress. Reports feeling better today with abd and nausea improve. No active signs of bleeding overnight or this am. Tolerated eating breakfast this am w/o difficultly. Objective - Constitutional Vitals: Temp Pulse Resp BP Pulse Ox 98.1 F 72 18 100/45 96 12/04/18 00:34 12/04/18 04:45 12/04/18 00:34 12/04/18 00:34 12/04/18 00:34 General appearance: no acute distress - Respiratory Respiratory: bilateral: CTA - Cardiovascular Rhythm: regular Heart Sounds: Present: S1 & S2 - Gastrointestinal General gastrointestinal: Present: soft, tender (slight TTP), non-distended, normal bowel sounds - Neurologic Neurological: alert and oriented x3 - Labs CBC & Chem 7: 12/04/18 05:09 12/04/18 05:09 Labs: Laboratory Results - last 24 hr 12/03/18 12/03/18 12/03/18 07:49 11:39 16:19 WBC RBC Hgb Hct MCV MCH MCHC RDW Plt Count Add Manual Diff Total Counted Seg Neuts % (Manual) Band Neutrophils % Lymphocytes % (Manual) Reactive Lymphs % (Man) Monocytes % (Manual) Eosinophils % (Manual) Basophils % (Manual) Metamyelocytes % Myelocytes % Promyelocytes % Blast Cells % Nucleated RBC % Seg Neutrophils # Man Band Neutrophils # Lymphocytes # (Manual) Abs React Lymphs (Man) Monocytes # (Manual) Eosinophils # (Manual) Basophils # (Manual) Metamyelocytes # Myelocytes # Promyelocytes # Blast Cells # WBC Morphology Hypersegmented Neuts Hyposegmented Neuts Hypogranular Neuts Smudge Cells Toxic Granulation Toxic Vacuolation Dohle Bodies Pelger-Huet Anomaly Mary Lou Rods Platelet Estimate Clumped Platelets Plt Clumps, EDTA Large Platelets Giant Platelets Platelet Satelliting Plt Morphology Comment RBC Morphology Dimorphic RBCs Polychromasia Hypochromasia Poikilocytosis Anisocytosis Microcytosis Macrocytosis Spherocytes Pappenheimer Bodies Sickle Cells Target Cells Tear Drop Cells Ovalocytes Helmet Cells Nelson-Steen Bodies [place] Rings [place] Cells Bite Cells Crenated Cell Elliptocytes Acanthocytes (Spur) Rouleaux Hemoglobin C Crystals Schistocytes Malaria parasites Sigifredo Bodies Hem Pathologist Commnt Sodium Potassium Chloride Carbon Dioxide Anion Gap BUN Creatinine Estimated GFR BUN/Creatinine Ratio Glucose POC Glucose 180 H 251 H 77 Calcium Total Bilirubin AST ALT Alkaline Phosphatase Total Protein Albumin Albumin/Globulin Ratio 12/03/18 12/03/18 12/04/18 21:07 21:49 05:09 WBC 6.8 RBC 3.16 L Hgb 8.4 L Hct 25.9 L MCV 82 MCH 27 L MCHC 32 RDW 20.9 H Plt Count 224 Add Manual Diff Complete Total Counted 100 Seg Neuts % (Manual) 72.0 H Band Neutrophils % 0 Lymphocytes % (Manual) 13.0 L Reactive Lymphs % (Man) 0 Monocytes % (Manual) 7.0 Eosinophils % (Manual) 7.0 H Basophils % (Manual) 1.0 Metamyelocytes % 0 Myelocytes % 0 Promyelocytes % 0 Blast Cells % 0 Nucleated RBC % Not Reportable Seg Neutrophils # Man 4.9 Band Neutrophils # 0.0 Lymphocytes # (Manual) 0.9 L Abs React Lymphs (Man) 0.0 Monocytes # (Manual) 0.5 Eosinophils # (Manual) 0.5 H Basophils # (Manual) 0.1 Metamyelocytes # 0.0 Myelocytes # 0.0 Promyelocytes # 0.0 Blast Cells # 0.0 WBC Morphology Not Reportable Hypersegmented Neuts Not Reportable Hyposegmented Neuts Not Reportable Hypogranular Neuts Not Reportable Smudge Cells Not Reportable Toxic Granulation Not Reportable Toxic Vacuolation Not Reportable Dohle Bodies Not Reportable Pelger-Huet Anomaly Not Reportable Mary Lou Rods Not Reportable Platelet Estimate Consistent w auto Clumped Platelets Not Reportable Plt Clumps, EDTA Not Reportable Large Platelets Not Reportable Giant Platelets Not Reportable Platelet Satelliting Not Reportable Plt Morphology Comment Not Reportable RBC Morphology Not Reportable Dimorphic RBCs Not Reportable Polychromasia Not Reportable Hypochromasia Not Reportable Poikilocytosis 1+ Anisocytosis 1+ Microcytosis Not Reportable Macrocytosis Not Reportable Spherocytes Not Reportable Pappenheimer Bodies Not Reportable Sickle Cells Not Reportable Target Cells 1+ Tear Drop Cells Rare Ovalocytes Few Helmet Cells Not Reportable Nelson-Steen Bodies Not Reportable [place] Rings Not Reportable [place] Cells Not Reportable Bite Cells Not Reportable Crenated Cell Not Reportable Elliptocytes Not Reportable Acanthocytes (Spur) Not Reportable Rouleaux Not Reportable Hemoglobin C Crystals Not Reportable Schistocytes Not Reportable Malaria parasites Not Reportable Sigifredo Bodies Not Reportable Hem Pathologist Commnt No Sodium Potassium Chloride Carbon Dioxide Anion Gap BUN Creatinine Estimated GFR BUN/Creatinine Ratio Glucose POC Glucose 135 H 188 H Calcium Total Bilirubin AST ALT Alkaline Phosphatase Total Protein Albumin Albumin/Globulin Ratio 12/04/18 12/04/18 05:09 07:48 WBC RBC Hgb Hct MCV MCH MCHC RDW Plt Count Add Manual Diff Total Counted Seg Neuts % (Manual) Band Neutrophils % Lymphocytes % (Manual) Reactive Lymphs % (Man) Monocytes % (Manual) Eosinophils % (Manual) Basophils % (Manual) Metamyelocytes % Myelocytes % Promyelocytes % Blast Cells % Nucleated RBC % Seg Neutrophils # Man Band Neutrophils # Lymphocytes # (Manual) Abs React Lymphs (Man) Monocytes # (Manual) Eosinophils # (Manual) Basophils # (Manual) Metamyelocytes # Myelocytes # Promyelocytes # Blast Cells # WBC Morphology Hypersegmented Neuts Hyposegmented Neuts Hypogranular Neuts Smudge Cells Toxic Granulation Toxic Vacuolation Dohle Bodies Pelger-Huet Anomaly Mary Lou Rods Platelet Estimate Clumped Platelets Plt Clumps, EDTA Large Platelets Giant Platelets Platelet Satelliting Plt Morphology Comment RBC Morphology Dimorphic RBCs Polychromasia Hypochromasia Poikilocytosis Anisocytosis Microcytosis Macrocytosis Spherocytes Pappenheimer Bodies Sickle Cells Target Cells Tear Drop Cells Ovalocytes Helmet Cells Nelson-Steen Bodies [place] Rings [place] Cells Bite Cells Crenated Cell Elliptocytes Acanthocytes (Spur) Rouleaux Hemoglobin C Crystals Schistocytes Malaria parasites Sigifredo Bodies Hem Pathologist Commnt Sodium 137 Potassium 4.6 D Chloride 92.6 L Carbon Dioxide 30 Anion Gap 19 BUN 22 H Creatinine 4.6 H Estimated GFR 12 BUN/Creatinine Ratio 5 Glucose 269 H POC Glucose 360 H Calcium 8.7 Total Bilirubin 3.00 H AST 34 ALT 25 Alkaline Phosphatase 375 H Total Protein 6.8 Albumin 3.2 L Albumin/Globulin Ratio 0.9 <CARLOS PATTERSON R - Last Filed: 12/04/18 13:51> Assessment and Plan CT reviewed. Ascites present on 11/[address] No prior history. Will get diagnostic paracentesis. Discussed with patient. Objective - Constitutional Vitals: Temp Pulse Resp BP Pulse Ox 98.1 F 72 18 100/45 96 12/04/18 00:34 12/04/18 04:45 12/04/18 00:34 12/04/18 00:34 12/04/18 00:34 - Labs CBC & Chem 7: 12/04/18 05:09 12/04/18 05:09 Labs: Laboratory Results - last 24 hr 12/03/18 12/03/18 12/03/18 07:49 11:39 16:19 WBC RBC Hgb Hct MCV MCH MCHC RDW Plt Count Add Manual Diff Total Counted Seg Neuts % (Manual) Band Neutrophils % Lymphocytes % (Manual) Reactive Lymphs % (Man) Monocytes % (Manual) Eosinophils % (Manual) Basophils % (Manual) Metamyelocytes % Myelocytes % Promyelocytes % Blast Cells % Nucleated RBC % Seg Neutrophils # Man Band Neutrophils # Lymphocytes # (Manual) Abs React Lymphs (Man) Monocytes # (Manual) Eosinophils # (Manual) Basophils # (Manual) Metamyelocytes # Myelocytes # Promyelocytes # Blast Cells # WBC Morphology Hypersegmented Neuts Hyposegmented Neuts Hypogranular Neuts Smudge Cells Toxic Granulation Toxic Vacuolation Dohle Bodies Pelger-Huet Anomaly Mary Lou Rods Platelet Estimate Clumped Platelets Plt Clumps, EDTA Large Platelets Giant Platelets Platelet Satelliting Plt Morphology Comment RBC Morphology Dimorphic RBCs Polychromasia Hypochromasia Poikilocytosis Anisocytosis Microcytosis Macrocytosis Spherocytes Pappenheimer Bodies Sickle Cells Target Cells Tear Drop Cells Ovalocytes Helmet Cells Nelson-Steen Bodies [place] Rings [place] Cells Bite Cells Crenated Cell Elliptocytes Acanthocytes (Spur) Rouleaux Hemoglobin C Crystals Schistocytes Malaria parasites Sigifredo Bodies Hem Pathologist Commnt Sodium Potassium Chloride Carbon Dioxide Anion Gap BUN Creatinine Estimated GFR BUN/Creatinine Ratio Glucose POC Glucose 180 H 251 H 77 Calcium Total Bilirubin AST ALT Alkaline Phosphatase Total Protein Albumin Albumin/Globulin Ratio 12/03/18 12/03/18 12/04/18 21:07 21:49 05:09 WBC 6.8 RBC 3.16 L Hgb 8.4 L Hct 25.9 L MCV 82 MCH 27 L MCHC 32 RDW 20.9 H Plt Count 224 Add Manual Diff Complete Total Counted 100 Seg Neuts % (Manual) 72.0 H Band Neutrophils % 0 Lymphocytes % (Manual) 13.0 L Reactive Lymphs % (Man) 0 Monocytes % (Manual) 7.0 Eosinophils % (Manual) 7.0 H Basophils % (Manual) 1.0 Metamyelocytes % 0 Myelocytes % 0 Promyelocytes % 0 Blast Cells % 0 Nucleated RBC % Not Reportable Seg Neutrophils # Man 4.9 Band Neutrophils # 0.0 Lymphocytes # (Manual) 0.9 L Abs React Lymphs (Man) 0.0 Monocytes # (Manual) 0.5 Eosinophils # (Manual) 0.5 H Basophils # (Manual) 0.1 Metamyelocytes # 0.0 Myelocytes # 0.0 Promyelocytes # 0.0 Blast Cells # 0.0 WBC Morphology Not Reportable Hypersegmented Neuts Not Reportable Hyposegmented Neuts Not Reportable Hypogranular Neuts Not Reportable Smudge Cells Not Reportable Toxic Granulation Not Reportable Toxic Vacuolation Not Reportable Dohle Bodies Not Reportable Pelger-Huet Anomaly Not Reportable Mary Lou Rods Not Reportable Platelet Estimate Consistent w auto Clumped Platelets Not Reportable Plt Clumps, EDTA Not Reportable Large Platelets Not Reportable Giant Platelets Not Reportable Platelet Satelliting Not Reportable Plt Morphology Comment Not Reportable RBC Morphology Not Reportable Dimorphic RBCs Not Reportable Polychromasia Not Reportable Hypochromasia Not Reportable Poikilocytosis 1+ Anisocytosis 1+ Microcytosis Not Reportable Macrocytosis Not Reportable Spherocytes Not Reportable Pappenheimer Bodies Not Reportable Sickle Cells Not Reportable Target Cells 1+ Tear Drop Cells Rare Ovalocytes Few Helmet Cells Not Reportable Nelson-Steen Bodies Not Reportable [place] English Rings Not Reportable [place] Cells Not Reportable Bite Cells Not Reportable Crenated Cell Not Reportable Elliptocytes Not Reportable Acanthocytes (Spur) Not Reportable Rouleaux Not Reportable Hemoglobin C Crystals Not Reportable Schistocytes Not Reportable Malaria parasites Not Reportable Sigifredo Bodies Not Reportable Hem Pathologist Commnt No Sodium Potassium Chloride Carbon Dioxide Anion Gap BUN Creatinine Estimated GFR BUN/Creatinine Ratio Glucose POC Glucose 135 H 188 H Calcium Total Bilirubin AST ALT Alkaline Phosphatase Total Protein Albumin Albumin/Globulin Ratio 12/04/18 12/04/18 05:09 07:48 WBC RBC Hgb Hct MCV MCH MCHC RDW Plt Count Add Manual Diff Total Counted Seg Neuts % (Manual) Band Neutrophils % Lymphocytes % (Manual) Reactive Lymphs % (Man) Monocytes % (Manual) Eosinophils % (Manual) Basophils % (Manual) Metamyelocytes % Myelocytes % Promyelocytes % Blast Cells % Nucleated RBC % Seg Neutrophils # Man Band Neutrophils # Lymphocytes # (Manual) Abs React Lymphs (Man) Monocytes # (Manual) Eosinophils # (Manual) Basophils # (Manual) Metamyelocytes # Myelocytes # Promyelocytes # Blast Cells # WBC Morphology Hypersegmented Neuts Hyposegmented Neuts Hypogranular Neuts Smudge Cells Toxic Granulation Toxic Vacuolation Dohle Bodies Pelger-Huet Anomaly Mary Lou Rods Platelet Estimate Clumped Platelets Plt Clumps, EDTA Large Platelets Giant Platelets Platelet Satelliting Plt Morphology Comment RBC Morphology Dimorphic RBCs Polychromasia Hypochromasia Poikilocytosis Anisocytosis Microcytosis Macrocytosis Spherocytes Pappenheimer Bodies Sickle Cells Target Cells Tear Drop Cells Ovalocytes Helmet Cells Nelson-Steen Bodies [place] Rings [place] Cells Bite Cells Crenated Cell Elliptocytes Acanthocytes (Spur) Rouleaux Hemoglobin C Crystals Schistocytes Malaria parasites Sigifredo Bodies Hem Pathologist Commnt Sodium 137 Potassium 4.6 D Chloride 92.6 L Carbon Dioxide 30 Anion Gap 19 BUN 22 H Creatinine 4.6 H Estimated GFR 12 BUN/Creatinine Ratio 5 Glucose 269 H POC Glucose 360 H Calcium 8.7 Total Bilirubin 3.00 H AST 34 ALT 25 Alkaline Phosphatase 375 H Total Protein 6.8 Albumin 3.2 L Albumin/Globulin Ratio 0.9
[2018-12-04] MEDS ORDERED: D50W (25GM) Syringe IV PRN (14:19)
[2018-12-04] MEDS ORDERED: LANTUS SUB-Q SCH (14:22)
--- NOTE | 2018-12-04 14:41 | Progress Note ---
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 Feels weak and SOB on minimal exertion. Also having dark stools. On admission, hemoglobin was 5.6. Patient also had positive Hemoccult stool. No fever or chills. No hematemesis. Has a dull epigastric pain. Was given 2 units of PRBCs. Hemoglobin improved to 10.6. GI consulted. Patient had ERCP in 11/15/2018. Showed sphincter of Oddi dysfunction. Had post procedure pancreatitis and was discharged 11/18/2018. (1) GI bleed Status post Transfusion 2 units of PRBS H&H is stable Continue Protonix CT abdomen was done and showed ascites Ascites - Could be due to ESRD - GI ordered diagnostic paracentesis (2) ESRD (end stage renal disease) - Nephrology is following, continue hemodialysis as scheduled (3) Severe anemia from acute blood loss s/p 2 units of Blood, H&H stable (4) IDDM (insulin dependent diabetes mellitus) On 15 units of Lantus daily at bedtime and sliding scale insulin, Accu-Chek Consistent divided diet (5) HTN (hypertension) Cont antihpertensives (7) HLD (hyperlipidemia) Hold statins for now (8) DVT prophylaxis On scd's only Disposition; Per clinical course; patient showed improvement and likely discharge tomorrow. History Interval history: Patient was seen and evaluated this morning, no bleeding overnight. Abdominal pain is getting better. Hospitalist Physical - Physical exam Narrative exam: Not in cardiopulmonary distress. The patient appeared well nourished and normally developed. Vital signs as documented. Head exam is unremarkable. No scleral icterus . Neck is without jugular venous distension, thyromegaly, or carotid bruits. Lungs are clear to auscultation. Cardiac exam reveals regular rate and Rhythm. First and second heart sounds normal. No murmurs, rubs or gallops. Abdominal exam reveals minimal ascites. Extremities are nonedematous and both femoral and pedal pulses are normal. PICU NURSE: Alert and oriented 3. No focal weakness. - Constitutional Vitals: Temp Pulse Resp BP Pulse Ox 98.1 F 72 18 100/45 96 12/04/18 00:34 12/04/18 04:45 12/04/18 00:34 12/04/18 00:34 12/04/18 00:34 General appearance: Present: no acute distress Results - Labs CBC & Chem 7: 12/04/18 05:09 12/04/18 05:09 Labs: Laboratory Last Values WBC 6.8 K/mm3 (4.5-11.0) 12/04/18 05:09 RBC 3.16 M/mm3 (3.65-5.03) L 12/04/18 05:09 Hgb 8.4 gm/dl (10.1-14.3) L 12/04/18 05:09 Hct 25.9 % (30.3-42.9) L 12/04/18 05:09 MCV 82 fl (79-97) 12/04/18 05:09 MCH 27 pg (28-32) L 12/04/18 05:09 MCHC 32 % (30-34) 12/04/18 05:09 RDW 20.9 % (13.2-15.2) H 12/04/18 05:09 Plt Count 224 K/mm3 (140-440) 12/04/18 05:09 Lymph % (Auto) Cpa Tax 12/01/18 15:22 [place] % (Auto) Cpa Tax 12/01/18 15:22 Eos % (Auto) Cpa Tax 12/01/18 15:22 Baso % (Auto) Cpa Tax 12/01/18 15:22 Lymph # Cpa Tax 12/01/18 15:22 [place] # Cpa Tax 12/01/18 15:22 Eos # Cpa Tax 12/01/18 15:22 Baso # Cpa Tax 12/01/18 15:22 Add Manual Diff Complete 12/04/18 05:09 Total Counted 100 12/04/18 05:09 Seg Neutrophils % Cpa Tax 12/01/18 15:22 Seg Neuts % (Manual) 72.0 % (40.0-70.0) H 12/04/18 05:09 Band Neutrophils % 0 % 12/04/18 05:09 Lymphocytes % (Manual) 13.0 % (13.4-35.0) L 12/04/18 05:09 Reactive Lymphs % (Man) 0 % 12/04/18 05:09 Monocytes % (Manual) 7.0 % (0.0-7.3) 12/04/18 05:09 Eosinophils % (Manual) 7.0 % (0.0-4.3) H 12/04/18 05:09 Basophils % (Manual) 1.0 % (0.0-1.8) 12/04/18 05:09 Metamyelocytes % 0 % 12/04/18 05:09 Myelocytes % 0 % 12/04/18 05:09 Promyelocytes % 0 % 12/04/18 05:09 Blast Cells % 0 % 12/04/18 05:09 Nucleated RBC % Not Reportable 12/04/18 05:09 Seg Neutrophils # Cpa Tax 12/01/18 15:22 Seg Neutrophils # Man 4.9 K/mm3 (1.8-7.7) 12/04/18 05:09 Band Neutrophils # 0.0 K/mm3 12/04/18 05:09 Lymphocytes # (Manual) 0.9 K/mm3 (1.2-5.4) L 12/04/18 05:09 Abs React Lymphs (Man) 0.0 K/mm3 12/04/18 05:09 Monocytes # (Manual) 0.5 K/mm3 (0.0-0.8) 12/04/18 05:09 Eosinophils # (Manual) 0.5 K/mm3 (0.0-0.4) H 12/04/18 05:09 Basophils # (Manual) 0.1 K/mm3 (0.0-0.1) 12/04/18 05:09 Metamyelocytes # 0.0 K/mm3 12/04/18 05:09 Myelocytes # 0.0 K/mm3 12/04/18 05:09 Promyelocytes # 0.0 K/mm3 12/04/18 05:09 Blast Cells # 0.0 K/mm3 12/04/18 05:09 WBC Morphology Not Reportable 12/04/18 05:09 Hypersegmented Neuts Not Reportable 12/04/18 05:09 Hyposegmented Neuts Not Reportable 12/04/18 05:09 Hypogranular Neuts Not Reportable 12/04/18 05:09 Smudge Cells Not Reportable 12/04/18 05:09 Toxic Granulation Not Reportable 12/04/18 05:09 Toxic Vacuolation Not Reportable 12/04/18 05:09 Dohle Bodies Not Reportable 12/04/18 05:09 Pelger-Huet Anomaly Not Reportable 12/04/18 05:09 Mary Lou Rods Not Reportable 12/04/18 05:09 Platelet Estimate Consistent w auto 12/04/18 05:09 Clumped Platelets Not Reportable 12/04/18 05:09 Plt Clumps, EDTA Not Reportable 12/04/18 05:09 Large Platelets Not Reportable 12/04/18 05:09 Giant Platelets Not Reportable 12/04/18 05:09 Platelet Satelliting Not Reportable 12/04/18 05:09 Plt Morphology Comment Not Reportable 12/04/18 05:09 RBC Morphology Not Reportable 12/04/18 05:09 Dimorphic RBCs Not Reportable 12/04/18 05:09 Polychromasia Not Reportable 12/04/18 05:09 Hypochromasia Not Reportable 12/04/18 05:09 Poikilocytosis 1+ 12/04/18 05:09 Anisocytosis 1+ 12/04/18 05:09 Microcytosis Not Reportable 12/04/18 05:09 Macrocytosis Not Reportable 12/04/18 05:09 Spherocytes Not Reportable 12/04/18 05:09 Pappenheimer Bodies Not Reportable 12/04/18 05:09 Sickle Cells Not Reportable 12/04/18 05:09 Target Cells 1+ 12/04/18 05:09 Tear Drop Cells Rare 12/04/18 05:09 Ovalocytes Few 12/04/18 05:09 Helmet Cells Not Reportable 12/04/18 05:09 Nelson-[place] Bodies Not Reportable 12/04/18 05:09 [place] Rings Not Reportable 12/04/18 05:09 [place] Cells Not Reportable 12/04/18 05:09 Bite Cells Not Reportable 12/04/18 05:09 Crenated Cell Not Reportable 12/04/18 05:09 Elliptocytes Not Reportable 12/04/18 05:09 Acanthocytes (Spur) Not Reportable 12/04/18 05:09 Rouleaux Not Reportable 12/04/18 05:09 Hemoglobin C Crystals Not Reportable 12/04/18 05:09 Schistocytes Not Reportable 12/04/18 05:09 Malaria parasites Not Reportable 12/04/18 05:09 Sigifredo Bodies Not Reportable 12/04/18 05:09 Hem Pathologist Commnt No 12/04/18 05:09 PT 12.9 Sec. (12.2-14.9) 12/01/18 15:22 INR 0.93 (0.87-1.13) 12/01/18 15:22 APTT 27.9 Sec. (24.2-36.6) 12/01/18 15:22 Sodium 137 mmol/L (137-145) 12/04/18 05:09 Potassium 4.6 mmol/L (3.6-5.0) D 12/04/18 05:09 Chloride 92.6 mmol/L (98-107) L 12/04/18 05:09 Carbon Dioxide 30 mmol/L (22-30) 12/04/18 05:09 Anion Gap 19 mmol/L 12/04/18 05:09 BUN 22 mg/dL (7-17) H 12/04/18 05:09 Creatinine 4.6 mg/dL (0.7-1.2) H 12/04/18 05:09 Estimated GFR 12 ml/min 12/04/18 05:09 BUN/Creatinine Ratio 5 % 12/04/18 05:09 Glucose 269 mg/dL (65-100) H 12/04/18 05:09 POC Glucose 276 (70-105) H 12/04/18 12:48 Hemoglobin A1c 7.6 % (4-6) H 12/01/18 15:22 Calcium 8.7 mg/dL (8.4-10.2) 12/04/18 05:09 Total Bilirubin 3.00 mg/dL (0.1-1.2) H 12/04/18 05:09 Direct Bilirubin 2.4 mg/dL (0-0.2) H 12/01/18 15:22 Indirect Bilirubin 1.5 mg/dL 12/01/18 15:22 AST 34 units/L (5-40) 12/04/18 05:09 ALT 25 units/L (7-56) 12/04/18 05:09 Alkaline Phosphatase 375 units/L (35-129) H 12/04/18 05:09 Total Protein 6.8 g/dL (6.3-8.2) 12/04/18 05:09 Albumin 3.2 g/dL (3.9-5) L 12/04/18 05:09 Albumin/Globulin Ratio 0.9 % 12/04/18 05:09 Lipase 34 units/L (13-60) 12/02/18 15:39 Blood Type O POSITIVE 12/01/18 15:22 Antibody Screen Negative 12/01/18 15:22 Crossmatch See Detail 12/01/18 15:22
[2018-12-04 15:40] LABS: INR 1.11 (0.87-1.13)
[2018-12-04 15:41] LABS: Partial Thromboplastin Time 28.3 Sec. (24.2-36.6)
[2018-12-04] MEDS: AMBIEN PO PRN (23:34)
[2018-12-05 06:22] LABS: Hematocrit 25.7 % (30.3-42.9); Hemoglobin 8.2 gm/dl (10.1-14.3)
[2018-12-05 06:43] LABS: Calcium 8.2 mg/dL (8.4-10.2)
--- NOTE | 2018-12-05 09:25 | Progress Note ---
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 Feels weak and SOB on minimal exertion. Also having dark stools. On admission, hemoglobin was 5.6. Patient also had positive Hemoccult stool. No fever or chills. No hematemesis. Has a dull epigastric pain. Was given 2 units of PRBCs. Hemoglobin improved to 10.6. GI consulted. Patient had ERCP in 11/15/2018. Showed sphincter of Oddi dysfunction. Had post procedure pancreatitis and was discharged 11/18/2018. GI bleed Status post Transfusion 3 units of PRBS H&H is stable Continue Protonix CT abdomen was done and showed ascites Ascites - Could be due to ESRD - GI ordered diagnostic paracentesis-pending ESRD (end stage renal disease) - Nephrology is following, continue hemodialysis as scheduled Severe anemia from acute blood loss s/p 2 units of Blood, H&H stable IDDM (insulin dependent diabetes mellitus) On 15 units of Lantus daily at bedtime and sliding scale insulin, Accu-Chek Consistent divided diet HTN (hypertension) Cont antihpertensives HLD (hyperlipidemia) Hold statins for now DVT prophylaxis On scd's only Disposition; Per clinical course; patient showed improvement and likely discharge tomorrow. Hospitalist Physical - Constitutional Vitals: Temp Pulse Resp BP Pulse Ox 98.8 F 86 18 125/56 100 12/05/18 05:38 12/05/18 05:38 12/05/18 05:38 12/05/18 05:38 12/05/18 05:38 General appearance: Present: no acute distress Results - Labs CBC & Chem 7: 12/05/18 05:11 12/05/18 05:11 Labs: Laboratory Last Values WBC 6.8 K/mm3 (4.5-11.0) 12/04/18 05:09 RBC 3.16 M/mm3 (3.65-5.03) L 12/04/18 05:09 Hgb 8.2 gm/dl (10.1-14.3) L 12/05/18 05:11 Hct 25.7 % (30.3-42.9) L 12/05/18 05:11 MCV 82 fl (79-97) 12/04/18 05:09 MCH 27 pg (28-32) L 12/04/18 05:09 MCHC 32 % (30-34) 12/04/18 05:09 RDW 20.9 % (13.2-15.2) H 12/04/18 05:09 Plt Count 224 K/mm3 (140-440) 12/04/18 05:09 Lymph % (Auto) Sap Bw Developer 12/01/18 15:22 Iroquois % (Auto) Sap Bw Developer 12/01/18 15:22 Eos % (Auto) Sap Bw Developer 12/01/18 15:22 Baso % (Auto) Sap Bw Developer 12/01/18 15:22 Lymph # Sap Bw Developer 12/01/18 15:22 Iroquois # Sap Bw Developer 12/01/18 15:22 Eos # Sap Bw Developer 12/01/18 15:22 Baso # Sap Bw Developer 12/01/18 15:22 Add Manual Diff Complete 12/04/18 05:09 Total Counted 100 12/04/18 05:09 Seg Neutrophils % Sap Bw Developer 12/01/18 15:22 Seg Neuts % (Manual) 72.0 % (40.0-70.0) H 12/04/18 05:09 Band Neutrophils % 0 % 12/04/18 05:09 Lymphocytes % (Manual) 13.0 % (13.4-35.0) L 12/04/18 05:09 Reactive Lymphs % (Man) 0 % 12/04/18 05:09 Monocytes % (Manual) 7.0 % (0.0-7.3) 12/04/18 05:09 Eosinophils % (Manual) 7.0 % (0.0-4.3) H 12/04/18 05:09 Basophils % (Manual) 1.0 % (0.0-1.8) 12/04/18 05:09 Metamyelocytes % 0 % 12/04/18 05:09 Myelocytes % 0 % 12/04/18 05:09 Promyelocytes % 0 % 12/04/18 05:09 Blast Cells % 0 % 12/04/18 05:09 Nucleated RBC % Not Reportable 12/04/18 05:09 Seg Neutrophils # Sap Bw Developer 12/01/18 15:22 Seg Neutrophils # Man 4.9 K/mm3 (1.8-7.7) 12/04/18 05:09 Band Neutrophils # 0.0 K/mm3 12/04/18 05:09 Lymphocytes # (Manual) 0.9 K/mm3 (1.2-5.4) L 12/04/18 05:09 Abs React Lymphs (Man) 0.0 K/mm3 12/04/18 05:09 Monocytes # (Manual) 0.5 K/mm3 (0.0-0.8) 12/04/18 05:09 Eosinophils # (Manual) 0.5 K/mm3 (0.0-0.4) H 12/04/18 05:09 Basophils # (Manual) 0.1 K/mm3 (0.0-0.1) 12/04/18 05:09 Metamyelocytes # 0.0 K/mm3 12/04/18 05:09 Myelocytes # 0.0 K/mm3 12/04/18 05:09 Promyelocytes # 0.0 K/mm3 12/04/18 05:09 Blast Cells # 0.0 K/mm3 12/04/18 05:09 WBC Morphology Not Reportable 12/04/18 05:09 Hypersegmented Neuts Not Reportable 12/04/18 05:09 Hyposegmented Neuts Not Reportable 12/04/18 05:09 Hypogranular Neuts Not Reportable 12/04/18 05:09 Smudge Cells Not Reportable 12/04/18 05:09 Toxic Granulation Not Reportable 12/04/18 05:09 Toxic Vacuolation Not Reportable 12/04/18 05:09 Dohle Bodies Not Reportable 12/04/18 05:09 Pelger-Huet Anomaly Not Reportable 12/04/18 05:09 Mary Lou Rods Not Reportable 12/04/18 05:09 Platelet Estimate Consistent w auto 12/04/18 05:09 Clumped Platelets Not Reportable 12/04/18 05:09 Plt Clumps, EDTA Not Reportable 12/04/18 05:09 Large Platelets Not Reportable 12/04/18 05:09 Giant Platelets Not Reportable 12/04/18 05:09 Platelet Satelliting Not Reportable 12/04/18 05:09 Plt Morphology Comment Not Reportable 12/04/18 05:09 RBC Morphology Not Reportable 12/04/18 05:09 Dimorphic RBCs Not Reportable 12/04/18 05:09 Polychromasia Not Reportable 12/04/18 05:09 Hypochromasia Not Reportable 12/04/18 05:09 Poikilocytosis 1+ 12/04/18 05:09 Anisocytosis 1+ 12/04/18 05:09 Microcytosis Not Reportable 12/04/18 05:09 Macrocytosis Not Reportable 12/04/18 05:09 Spherocytes Not Reportable 12/04/18 05:09 Pappenheimer Bodies Not Reportable 12/04/18 05:09 Sickle Cells Not Reportable 12/04/18 05:09 Target Cells 1+ 12/04/18 05:09 Tear Drop Cells Rare 12/04/18 05:09 Ovalocytes Few 12/04/18 05:09 Helmet Cells Not Reportable 12/04/18 05:09 Nelson-Ashby Bodies Not Reportable 12/04/18 05:09 [place] Rings Not Reportable 12/04/18 05:09 River Cells Not Reportable 12/04/18 05:09 Bite Cells Not Reportable 12/04/18 05:09 Crenated Cell Not Reportable 12/04/18 05:09 Elliptocytes Not Reportable 12/04/18 05:09 Acanthocytes (Spur) Not Reportable 12/04/18 05:09 Rouleaux Not Reportable 12/04/18 05:09 Hemoglobin C Crystals Not Reportable 12/04/18 05:09 Schistocytes Not Reportable 12/04/18 05:09 Malaria parasites Not Reportable 12/04/18 05:09 Sigifredo Bodies Not Reportable 12/04/18 05:09 Hem Pathologist Commnt No 12/04/18 05:09 PT 14.7 Sec. (12.2-14.9) 12/04/18 14:40 INR 1.11 (0.87-1.13) 12/04/18 14:40 APTT 28.3 Sec. (24.2-36.6) 12/04/18 14:40 Sodium 137 mmol/L (137-145) 12/05/18 05:11 Potassium 4.1 mmol/L (3.6-5.0) 12/05/18 05:11 Chloride 94.1 mmol/L (98-107) L 12/05/18 05:11 Carbon Dioxide 26 mmol/L (22-30) 12/05/18 05:11 Anion Gap 21 mmol/L 12/05/18 05:11 BUN 29 mg/dL (7-17) H 12/05/18 05:11 Creatinine 5.7 mg/dL (0.7-1.2) H 12/05/18 05:11 Estimated GFR 9 ml/min 12/05/18 05:11 BUN/Creatinine Ratio 5 % 12/05/18 05:11 Glucose 210 mg/dL (65-100) H 12/05/18 05:11 POC Glucose 162 (70-105) H 12/05/18 08:15 Hemoglobin A1c 7.6 % (4-6) H 12/01/18 15:22 Calcium 8.2 mg/dL (8.4-10.2) L 12/05/18 05:11 Total Bilirubin 3.00 mg/dL (0.1-1.2) H 12/04/18 05:09 Direct Bilirubin 2.4 mg/dL (0-0.2) H 12/01/18 15:22 Indirect Bilirubin 1.5 mg/dL 12/01/18 15:22 AST 34 units/L (5-40) 12/04/18 05:09 ALT 25 units/L (7-56) 12/04/18 05:09 Alkaline Phosphatase 375 units/L (35-129) H 12/04/18 05:09 Total Protein 6.8 g/dL (6.3-8.2) 12/04/18 05:09 Albumin 3.2 g/dL (3.9-5) L 12/04/18 05:09 Albumin/Globulin Ratio 0.9 % 12/04/18 05:09 Lipase 34 units/L (13-60) 12/02/18 15:39 Blood Type O POSITIVE 12/01/18 15:22 Antibody Screen Negative 12/01/18 15:22 Crossmatch See Detail 12/01/18 15:22
[2018-12-05] MEDS: LONITEN PO SCH (09:33)
[2018-12-05] MEDS: PROTONIX IV SCH (09:34)
[2018-12-05] MEDS: HumaLOG SUB-Q SCH (09:36)
[2018-12-05] MEDS: HEPARIN SUB-Q SCH (09:37)
[2018-12-05] MEDS: SODIUM CHLORIDE FLUSH SYRINGE 10 ML IV SCH (09:37)
[2018-12-05] MEDS: LOPRESSOR PO SCH (09:40)
[2018-12-05] MEDS: CATAPRES PO SCH (09:40)
--- NOTE | 2018-12-05 10:15 | Progress Note ---
Assessment and Plan - Patient Problems (1) Severe anemia Current Visit: Yes Status: Acute Plan to address problem: s/p 3PRBC transfusion, Hb stable at 8.2. to rule out GI bleed. cont EPO with HD (2) GI bleed Current Visit: Yes Status: Acute Qualifiers: Gastritis type: unspecified gastritis Plan to address problem: on protonix 40mg IV bid. follow GI recommendations (3) ESRD (end stage renal disease) Current Visit: Yes Status: Chronic Plan to address problem: cont HD on TTS schdule (4) HTN (hypertension) Current Visit: Yes Status: Chronic Qualifiers: Hypertension type: essential hypertension Qualified Code(s): I10 - Essential (primary) hypertension Plan to address problem: resume home BP regimen. will increase UF as tolerated with HD (5) IDDM (insulin dependent diabetes mellitus) Current Visit: Yes Status: Chronic Plan to address problem: glucose control as per primary attending Subjective Date of service: 12/05/18 Principal diagnosis: anemia Interval history: Pt awake, alert, in no acute distress, no melena/BRBPR reported today. Objective - Vital Signs Vital signs: Vital Signs - 12hr 12/04/18 12/04/18 12/05/18 22:54 23:56 05:38 Temperature 98.6 F 98.8 F Pulse Rate 83 86 Respiratory 18 18 Rate Blood Pressure 113/54 96/35 125/56 O2 Sat by Pulse 99 100 Oximetry - General Appearance General appearance: well-developed, well-nourished, appears stated age EENT: ATNC, PERRL, mucous membranes moist Neck: no JVD Respiratory: Present: Clear to Ascultation Cardiology: regular, S1S2 Gastrointestinal: normoactive bowel sounds Integumentary: no rash, other (2+ edema b/l LE ) Neurologic: no focal deficit, alert and oriented x3, strength 5/5, CN 3-12 int act Psychiatric: mood/affect appropriate, cooperative - Lab 12/05/18 05:11 12/05/18 05:11 Most recent lab results Calcium 8.2 mg/dL (8.4-10.2) L 12/05/18 05:11 Medications & Allergies - Medications Allergies/Adverse Reactions: Allergies amlodipine Allergy (Verified 12/01/18 14:57) Itching losartan Allergy (Verified 12/01/18 14:57) Itching sulfamethoxazole [From Bactrim] Allergy (Verified 12/01/18 14:57) Rash trimethoprim [From Bactrim] Allergy (Verified 12/01/18 14:57) Rash morphine Adverse Reaction (Verified 12/01/18 14:57) Vomiting Home Medications: Home Medications Medication Instructions Recorded Confirmed Last Taken Type Insulin Glargine [Lantus VIAL] 15 unit SUB-Q DAILY 08/02/17 12/01/18 3 Days Ago History ~02/25/18 Torsemide [Demadex] 60 mg PO BID 08/02/17 12/01/18 3 Days Ago History ~02/25/18 Metoprolol [Lopressor] 100 mg PO BID 12/01/18 12/01/18 Unknown History Minoxidil [Loniten] 10 mg PO DAILY 12/01/18 12/01/18 Unknown History Pantoprazole [Protonix TAB] 20 mg PO DAILY 12/01/18 12/01/18 Unknown History cloNIDine [Catapres] 0.1 mg PO BID 12/01/18 12/01/18 Unknown History Active Medications: Generic Name Dose Route Start Last Admin Trade Name Freq PRN Reason Stop Dose Admin Acetaminophen 650 mg 12/01/18 17:33 Tylenol PO Q4H PRN Pain MILD(1-3)/Fever >100.5/CASTILLO Clonidine HCl 0.1 mg 12/03/18 10:00 12/05/18 09:40 Catapres PO Not Given BID [facility] Dextrose 50 ml 12/04/18 14:19 D50w (25gm) Syringe IV PRN PRN Hypoglycemia Epoetin Jacoby 10,000 unit 12/02/18 14:00 Procrit SUB-Q 12/12/18 13:59 FRANCOIS [facility] Heparin Sodium (Porcine) 5,000 unit 12/01/18 22:00 12/05/18 09:37 Heparin SUB-Q Not Given Q12HR [facility] Hydromorphone HCl 0.5 mg 12/01/18 17:33 Dilaudid IV Q3H PRN Pain , Severe (7-10) Sodium Chloride 100 mls @ 999 mls/hr 12/02/18 08:37 Nacl 0.9% IV FRANCOIS PRN Hypotension Insulin Glargine 15 units 12/04/18 14:22 12/04/18 22:59 Lantus SUB-Q 15 units QHS FATMATA Administration Insulin Human Lispro 0 unit 12/04/18 16:30 12/05/18 09:36 Humalog SUB-Q 3 unit ACHS FATMATA Administration Protocol Metoprolol Tartrate 100 mg 12/03/18 10:00 12/05/18 09:40 Lopressor PO Not Given BID [facility] Minoxidil 10 mg 12/03/18 10:00 12/05/18 09:33 Loniten PO Not Given DAILY [facility] Ondansetron HCl 4 mg 12/01/18 17:33 12/03/18 17:44 Zofran IV 4 mg Q8H PRN Administration Nausea And Vomiting Oxycodone/Acetaminophen 1 tab 12/01/18 17:33 12/02/18 15:27 Percocet 5/325 PO 1 tab Q6H PRN Administration Pain, Moderate (4-6) Pantoprazole Sodium 40 mg 12/02/18 22:00 12/05/18 09:34 Protonix IV 40 mg BID FATMATA Administration Promethazine HCl 25 mg 12/01/18 17:35 12/03/18 18:53 Phenergan PO 25 mg Q6HR PRN Administration nausea or vomiting Sodium Chloride 10 ml 12/01/18 22:00 12/05/18 09:37 Sodium Chloride Flush Syringe 10 Ml IV 10 ml BID FATMATA Administration Sodium Chloride 10 ml 12/01/18 17:33 Sodium Chloride Flush Syringe 10 Ml IV PRN PRN LINE FLUSH Torsemide 60 mg 12/02/18 06:00 12/04/18 17:52 Demadex PO 60 mg BID@0600,1800 FATMATA Administration Zolpidem Tartrate 5 mg 12/01/18 17:35 12/04/18 23:34 Ambien PO 5 mg QHS PRN Administration Sleep
[2018-12-05] MEDS ORDERED: XYLOCAINE 1% 20 mL ONE (10:30)
--- NOTE | 2018-12-05 10:40 | Procedure Note ---
Date of procedure: 12/05/18 Pre-op diagnosis: ascites Post-op diagnosis: same Procedure: US paracentesis Findings: medium ascites Anesthesia: local Surgeon: KARLEE SLOAN Estimated blood loss: none Pathology: list (120cc) Specimen disposition: to lab Condition: stable Disposition: floor
--- NOTE | 2018-12-05 11:15 | Ultrasound Report ---
ULTRASOUND PARACENTESIS HISTORY: Ascites. DESCRIPTION OF PROCEDURE: A time out was performed. Informed consent was obtained. Sterile technique was utilized. Using ultrasound guidance, a 5 Thai centesis needle was advanced into the peritoneal space. There was spontaneous return of clear yellow fluid. 1.4 L of fluid was drained. 120 cc of fluid was sent to laboratory for analysis. No complications. IMPRESSION: Successful ultrasound-guided paracentesis.
[2018-12-05 12:06] LABS: Total Cells Counted 100 /mm3
--- NOTE | 2018-12-05 15:08 | Discharge Summary ---
Providers - Providers Date of Admission: 12/01/18 17:33 Attending physician: CALLIE BERRY MD 12/01/18 15:19 Consult to Physician [CONS] Stat Comment: DR Oumou LADD AWARE Consulting Provider: BALDO LADD Physician Instructions: Reason For Exam: anemia hemoccult+ stool 12/01/18 17:15 Consult to Physician [CONS] Stat Comment: DR KIMBROUGH NOTIFIED 1700 Consulting Provider: TYRONE KIMBROUGH Physician Instructions: Reason For Exam: ESRD 12/04/18 15:53 Physical Therapy Evaluation and Treat [CONS] Routine Comment: uses a crutch for ambulation Reason For Exam: difficulty with ambulation Primary care physician: SLICK JI Hospitalization Reason for admission: ABDOMINAL PAIN Condition: Stable Hospital course: 53 yo female with hx of 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 Feels weak and SOB on minimal exertion. Also having dark stools. On admission, hemoglobin was 5.6. Patient also had positive Hemoccult stool. No fever or chills. No hematemesis. Has a dull epigastric pain. Was given 2 units of PRBCs. Hemoglobin improved to 10.6. GI consulted. Patient had ERCP in 11/15/2018. Showed sphincter of Oddi dysfunction. Had post procedure pancreatitis and was discharged 11/18/2018. GI bleed Status post Transfusion 3 units of PRBS H&H is stable Continue Protonix CT abdomen was done and showed ascites Ascites - Could be due to ESRD - GI ordered diagnostic paracentesis-Done and discussed with GI so far appears transude. -Patient to follow with GI outpatient to see if Pancreatic Ascites and cytology. ESRD (end stage renal disease) - Nephrology is following, continue hemodialysis as scheduled Severe anemia from acute blood loss s/p 2 units of Blood, H&H stable IDDM (insulin dependent diabetes mellitus) On 15 units of Lantus daily at bedtime and sliding scale insulin, Accu-Chek Consistent divided diet HTN (hypertension) Cont antihpertensives HLD (hyperlipidemia) Hold statins for now Disposition: TO HOME OR SELFCARE Time spent for discharge: 35 mins Core Measure Documentation - Palliative Care Palliative Care/ Comfort Measures: Not Applicable - Core Measures Any of the following diagnoses?: none Exam - Physical Exam Narrative exam: Not in cardiopulmonary distress. The patient appeared well nourished and normally developed. Vital signs as documented. Head exam is unremarkable. No scleral icterus . Neck is without jugular venous distension, thyromegaly, or carotid bruits. Lungs are clear to auscultation. Cardiac exam reveals regular rate and Rhythm. First and second heart sounds normal. No murmurs, rubs or gallops. Abdominal exam reveals minimal ascites. Extremities are nonedematous and both femoral and pedal pulses are normal. DIRECTOR RETIREMENT: Alert and oriented 3. No focal weakness. - Constitutional Vitals: Temp Pulse Resp BP Pulse Ox 98.5 F 92 H 18 135/66 100 12/05/18 11:30 12/05/18 13:30 12/05/18 11:30 12/05/18 13:30 12/05/18 05:38 Plan Activity: advance as tolerated, fall precautions Diet: renal Special Instructions: record daily BP diary Follow up with: SLICK JI MD [Primary Care Provider] - 7 Days CARLOS PATTERSON MD [Staff Physician] - 7 Days Forms: Work/School Release Form
--- NOTE | 2018-12-05 15:21 | Progress Note ---
Assessment and Plan 1. Ascites - etiology unclear. Initial labs negative. Amylase, cytology, cultures pending. Doubt pancreatic ascites but need to exclude, so need to f/u on fluid studies, as well as cytology, as outpatient. 2. Abd pain - mild etiology unclear. Discussed with Dr. Pisano. Can d/c to home. Subjective Date of service: 12/05/18 Principal diagnosis: anemia Interval history: Pt doing well. In dialysis. Had 1.4 liter paracentesis today. No abd pain, though has some if she starts to eat. Objective - Constitutional Vitals: Vital Signs - 12hr 12/05/18 12/05/18 12/05/18 05:38 11:30 11:45 Temperature 98.8 F 98.5 F Pulse Rate 86 90 86 Respiratory 18 18 Rate Blood Pressure 125/56 150/76 153/80 O2 Sat by Pulse 100 Oximetry 12/05/18 12/05/18 12/05/18 12:00 12:15 12:30 Temperature Pulse Rate 85 88 89 Respiratory Rate Blood Pressure 129/70 132/71 127/68 O2 Sat by Pulse Oximetry 12/05/18 12/05/18 12/05/18 12:45 13:00 13:15 Temperature Pulse Rate 89 89 89 Respiratory Rate Blood Pressure 133/66 130/67 133/66 O2 Sat by Pulse Oximetry 12/05/18 13:30 Temperature Pulse Rate 92 H Respiratory Rate Blood Pressure 135/66 O2 Sat by Pulse Oximetry General appearance: Present: no acute distress - EENT Eyes: PERRL, EOM intact - Respiratory Respiratory effort: normal - Cardiovascular Rhythm: regular Heart Sounds: Present: S1 & S2 - Gastrointestinal General gastrointestinal: Present: soft, tender (Mild, nonspecific) - Labs CBC & Chem 7: 12/05/18 05:11 12/05/18 05:11 Labs: Abnormal lab results 12/04/18 12/04/18 12/05/18 Range/Units 17:39 21:18 05:11 Hgb 8.2 L (10.1-14.3) gm/dl Hct 25.7 L (30.3-42.9) % Chloride (98-107) mmol/L BUN (7-17) mg/dL Creatinine (0.7-1.2) mg/dL Glucose (65-100) mg/dL POC Glucose 282 H 367 H (70-105) Calcium (8.4-10.2) mg/dL 12/05/18 12/05/18 Range/Units 05:11 08:15 Hgb (10.1-14.3) gm/dl Hct (30.3-42.9) % Chloride 94.1 L (98-107) mmol/L BUN 29 H (7-17) mg/dL Creatinine 5.7 H (0.7-1.2) mg/dL Glucose 210 H (65-100) mg/dL POC Glucose 162 H (70-105) Calcium 8.2 L (8.4-10.2) mg/dL Medications & Allergies - Medications Allergies/Adverse Reactions: Allergies amlodipine Allergy (Verified 12/01/18 14:57) Itching losartan Allergy (Verified 12/01/18 14:57) Itching sulfamethoxazole [From Bactrim] Allergy (Verified 12/01/18 14:57) Rash trimethoprim [From Bactrim] Allergy (Verified 12/01/18 14:57) Rash morphine Adverse Reaction (Verified 12/01/18 14:57) Vomiting Home Medications: Home Medications Medication Instructions Recorded Confirmed Last Taken Type Insulin Glargine [Lantus VIAL] 15 unit SUB-Q DAILY 08/02/17 12/01/18 3 Days Ago History ~02/25/18 Torsemide [Demadex] 60 mg PO BID 08/02/17 12/01/18 3 Days Ago History ~02/25/18 Metoprolol [Lopressor TAB] 100 mg PO BID 12/01/18 12/01/18 Unknown History Minoxidil [Loniten] 10 mg PO DAILY 12/01/18 12/01/18 Unknown History Pantoprazole [Protonix TAB] 20 mg PO DAILY 12/01/18 12/01/18 Unknown History cloNIDine [Catapres] 0.1 mg PO BID 12/01/18 12/01/18 Unknown History Zolpidem [Ambien] 5 mg PO QHS PRN tablet 12/05/18 Unknown Rx Active Medications: Generic Name Dose Route Start Last Admin Trade Name Freq PRN Reason Stop Dose Admin Acetaminophen 650 mg 12/01/18 17:33 Tylenol PO Q4H PRN Pain MILD(1-3)/Fever >100.5/CASTILLO Clonidine HCl 0.1 mg 12/03/18 10:00 12/05/18 09:40 Catapres PO Not Given BID [facility] Dextrose 50 ml 12/04/18 14:19 D50w (25gm) Syringe IV PRN PRN Hypoglycemia Epoetin Jacoby 10,000 unit 12/02/18 14:00 Procrit SUB-Q 12/12/18 13:59 FRANCOIS [facility] Heparin Sodium (Porcine) 5,000 unit 12/01/18 22:00 12/05/18 09:37 Heparin SUB-Q Not Given Q12HR [facility] Hydromorphone HCl 0.5 mg 12/01/18 17:33 Dilaudid IV Q3H PRN Pain , Severe (7-10) Sodium Chloride 100 mls @ 999 mls/hr 12/02/18 08:37 Nacl 0.9% IV FRANCOIS PRN Hypotension Insulin Glargine 15 units 12/04/18 14:22 12/04/18 22:59 Lantus SUB-Q 15 units QHS FATMATA Administration Insulin Human Lispro 0 unit 12/04/18 16:30 12/05/18 09:36 Humalog SUB-Q 3 unit ACHS [facility] Administration Protocol Metoprolol Tartrate 100 mg 12/03/18 10:00 12/05/18 09:40 Lopressor PO Not Given BID [facility] Minoxidil 10 mg 12/03/18 10:00 12/05/18 09:33 Loniten PO Not Given DAILY [facility] Ondansetron HCl 4 mg 12/01/18 17:33 12/03/18 17:44 Zofran IV 4 mg Q8H PRN Administration Nausea And Vomiting Oxycodone/Acetaminophen 1 tab 12/01/18 17:33 12/02/18 15:27 Percocet 5/325 PO 1 tab Q6H PRN Administration Pain, Moderate (4-6) Pantoprazole Sodium 40 mg 12/05/18 22:00 Protonix PO BID [facility] Promethazine HCl 25 mg 12/01/18 17:35 12/03/18 18:53 Phenergan PO 25 mg Q6HR PRN Administration nausea or vomiting Sodium Chloride 10 ml 12/01/18 22:00 12/05/18 09:37 Sodium Chloride Flush Syringe 10 Ml IV 10 ml BID FATMATA Administration Sodium Chloride 10 ml 12/01/18 17:33 Sodium Chloride Flush Syringe 10 Ml IV PRN PRN LINE FLUSH Torsemide 60 mg 12/02/18 06:00 12/04/18 17:52 Demadex PO 60 mg BID@0600,1800 FATMATA Administration Zolpidem Tartrate 5 mg 12/01/18 17:35 12/04/18 23:34 Ambien PO 5 mg QHS PRN Administration Sleep
[2018-12-05 18:03] VITALS: BP 134/63
[2018-12-05] MEDS ORDERED: PROTONIX PO SCH (22:00)
[2018-12-08 07:45] LABS: Amylase,Body Fluid 28; LDH,Body Fluid 154; Total Protein,Body Fluid 3.9 (15.0-45.0)
== END 2018-12-05 17:50 | disposition home or self-care (01) | DRG 377 ==
LOC: ED 14:19 → 3A 17:33
PROVIDERS: ADMIT Internal Medicine; ATTEND Internal Medicine
PROC: 30233N1 Transfusion of Nonautologous Red Blood Cells into Peripheral Vein, Percutaneous Approach (ICD-10-PCS; 2018-12-01)
PROC: 5A1D70Z Performance of Urinary Filtration, Intermittent, Less than 6 Hours Per Day (ICD-10-PCS; 2018-12-02)
PROC: 0W9G3ZZ Drainage of Peritoneal Cavity, Percutaneous Approach (ICD-10-PCS; principal; 2018-12-05)
PROC: 5A1D70Z Performance of Urinary Filtration, Intermittent, Less than 6 Hours Per Day (ICD-10-PCS; 2018-12-05)
DX: K29.71 Gastritis, unspecified, with bleeding (principal); N18.6 End stage renal disease; D62 Acute posthemorrhagic anemia; R18.8 Other ascites; I12.0 Hypertensive chronic kidney disease with stage 5 chronic kidney disease or end stage renal disease; E78.5 Hyperlipidemia, unspecified; E11.22 Type 2 diabetes mellitus with diabetic chronic kidney disease; E78.2 Mixed hyperlipidemia; Z87.891 Personal history of nicotine dependence; Z99.2 Dependence on renal dialysis; Z79.4 Long term (current) use of insulin; Z88.8 Allergy status to other drugs, medicaments and biological substances; Z88.5 Allergy status to narcotic agent; Z88.2 Allergy status to sulfonamides; Z83.3 Family history of diabetes mellitus; Z82.49 Family history of ischemic heart disease and other diseases of the circulatory system
CPT/HCPCS: 36415; 36430; 49083; 74176; 80048; 80053; 80076; 82040; 82150; 82947; 82962; 83036; 83605; 83690; 84160; 85007; 85014; 85018; 85025; 85610; 85730; 86850; 86900; 86901; 86920; 87116; 88112; 88305; 88341; 88342; 89051; G0378; C9113; J0885; J1644; J1815; J2270; J2405; J7030; J7040; P9016; Q0169

== ENCOUNTER 2019-04-20 11:48 | Inpatient (IN) | payer MEDICARE ==
--- NOTE | 2019-04-20 12:20 | Event Note ---
ED Screening Note ED Screening Note: L FOOT PAIN DUE TO INFECTION NO TREATMENT YET FEVER AT HD TUES. LUE AV FISTULA RETINA SURG HD- WED USUALLY T/R/S PMH ESRD DM HTN HPLD NO CAD/CVA This initial assessment/diagnostic orders/clinical plan/treatment(s) is/are subject to change based on patients health status, clinical progression and re-assessment by fellow clinical providers in the ED. Further treatment and workup at subsequent clinical providers discretion. Patient/guardian urged not to elope from the ED as their condition may be serious if not clinically assessed and managed. Initial orders include:
[2019-04-20 12:37] LABS: Hematocrit 32.7 % (30.3-42.9); Hemoglobin 10.7 gm/dl (10.1-14.3); Mean Corpuscular HGB Conc 33 % (30-34); Mean Corpuscular Volume 73 fl (79-97); Platelet Count 298 K/mm3 (140-440); Red Cell Distribution Width 17.3 % (13.2-15.2)
[2019-04-20 13:00] LABS: Albumin 3.5 g/dL (3.9-5)
[2019-04-20] MEDS ORDERED: VANCOMYCIN/NS 1 GM/250 ML 1 GM/250 ML BAG IV ONE (15:59)
[2019-04-20] MEDS ORDERED: MAXIPIME/NS 1 GM/100 ML 1 GM/100 ML BAG IV ONE (16:00)
[2019-04-20] MEDS ORDERED: NORCO 5/325 PO ONE ×2 (16:34→16:40)
[2019-04-20] MEDS ORDERED: VANCOMYCIN 1,500 MG in NACL 0.9% 500 ML 500 ML IV ONE (16:45)
--- NOTE | 2019-04-20 17:01 | Emergency Department Report ---
ED Lower Extremity HPI - General Chief Complaint: Extremity Injury, Lower Stated Complaint: LT LEG PAIN Time Seen by Provider: 04/20/19 12:19 Source: patient Mode of arrival: Stretcher Limitations: No Limitations - History of Present Illness Initial Comments: 54-year-old female with history of ESRD, diabetes presents to ED with left foot ulcer and pain. Patient states she noticed it 3 days ago. Denies fever. No history of foot ulcers in the past. Patient states she noticed her foot beginning to hurt approximately one week ago, but thought that it was her diabetic neuropathy. Patient last dialyzed 2 days ago. Complaint: foot injury -: week(s) (1) Injury: Foot: Left Severity: moderate Improves With: nothing Worsens With: weight bearing, palpation - Related Data Home Medications Medication Instructions Recorded Confirmed Last Taken Insulin Glargine [Lantus VIAL] 15 unit SUB-Q DAILY 08/02/17 04/20/19 3 Days Ago ~02/25/18 Torsemide [Demadex] 40 mg PO DAILY 08/02/17 04/20/19 3 Days Ago ~02/25/18 Metoprolol [Lopressor TAB] 100 mg PO BID 12/01/18 04/20/19 Unknown Minoxidil [Loniten] 10 mg PO DAILY 12/01/18 04/20/19 Unknown Insulin Lispro [Humalog 100 7 units SUB-Q TIDAC 04/20/19 04/20/19 Unknown UNITS/ML Kwikpen] Atropine 1% Ophth Soln 1 drop OS BID 04/21/19 04/21/19 Unknown Moxifloxacin 0.5% [Vigamox] 1 drop OS 4XD 04/21/19 04/21/19 Unknown Prednisolone Acet 1% Eye Drop 1 drop OS 4XD 04/21/19 04/21/19 Unknown Previous Rx's Medication Instructions Recorded Last Taken Type Zolpidem [Ambien] 5 mg PO QHS PRN tablet 12/05/18 Unknown Rx Allergies Allergy/AdvReac Type Severity Reaction Status Date / Time amlodipine Allergy Itching Verified 04/20/19 11:49 losartan Allergy Itching Verified 04/20/19 11:49 sulfamethoxazole Allergy Rash Verified 04/20/19 11:49 [From Bactrim] trimethoprim [From Bactrim] Allergy Rash Verified 04/20/19 11:49 morphine AdvReac Vomiting Verified 04/20/19 11:49 ED Review of Systems ROS: Stated complaint: LT LEG PAIN Other details as noted in HPI Comment: All other systems reviewed and negative Constitutional: denies: chills, fever Musculoskeletal: as per HPI ED Past Medical Hx - Past Medical History Hx Hypertension: Yes Hx Diabetes: Yes Hx Renal Disease: Yes Additional medical history: HLD, pancreatitis - Surgical History Additional Surgical History: Left arm Fistula, ERCP - Social History Smoking Status: Never Smoker Substance Use Type: None - Medications Home Medications: Home Medications Medication Instructions Recorded Confirmed Last Taken Type Insulin Glargine [Lantus VIAL] 15 unit SUB-Q DAILY 08/02/17 04/20/19 3 Days Ago History ~02/25/18 Torsemide [Demadex] 40 mg PO DAILY 08/02/17 04/20/19 3 Days Ago History ~02/25/18 Metoprolol [Lopressor TAB] 100 mg PO BID 12/01/18 04/20/19 Unknown History Minoxidil [Loniten] 10 mg PO DAILY 12/01/18 04/20/19 Unknown History Zolpidem [Ambien] 5 mg PO QHS PRN tablet 12/05/18 04/20/19 Unknown Rx Insulin Lispro [Humalog 100 7 units SUB-Q TIDAC 04/20/19 04/20/19 Unknown History UNITS/ML Kwikpen] Atropine 1% Ophth Soln 1 drop OS BID 04/21/19 04/21/19 Unknown History Moxifloxacin 0.5% [Vigamox] 1 drop OS 4XD 04/21/19 04/21/19 Unknown History Prednisolone Acet 1% Eye Drop 1 drop OS 4XD 04/21/19 04/21/19 Unknown History ED Physical Exam - General Limitations: No Limitations General appearance: alert, in no apparent distress - Head Head exam: Present: atraumatic, normocephalic - Eye Eye exam: Present: normal appearance - ENT ENT exam: Present: mucous membranes moist - Respiratory Respiratory exam: Present: normal lung sounds bilaterally. Absent: respiratory distress - Cardiovascular Cardiovascular Exam: Present: regular rate, normal rhythm - GI/Abdominal GI/Abdominal exam: Absent: distended - Extremities Exam Extremities exam: Present: other (necrotic ulcer to left heel approx 8 cm; decreased sensation to the area; no purulent discharge; no foul smell present) - Neurological Exam Neurological exam: Present: alert, oriented X3 - Psychiatric Psychiatric exam: Present: normal affect, normal mood - Skin Skin exam: Present: warm, dry ED Course Vital Signs 04/20/19 04/20/19 04/20/19 12:19 16:32 16:40 Temperature 98.4 F Pulse Rate 85 Respiratory 18 Rate Blood Pressure 185/87 177/77 Blood Pressure [Left] O2 Sat by Pulse 96 98 97 Oximetry 04/20/19 04/20/19 04/20/19 16:46 16:50 17:00 Temperature Pulse Rate 81 Respiratory 18 Rate Blood Pressure 177/77 177/77 Blood Pressure 177/87 [Left] O2 Sat by Pulse 97 100 99 Oximetry 04/20/19 04/20/19 04/20/19 17:10 17:20 17:30 Temperature Pulse Rate Respiratory Rate Blood Pressure 184/80 184/80 184/80 Blood Pressure [Left] O2 Sat by Pulse 98 98 98 Oximetry 04/20/19 04/20/19 04/20/19 17:40 17:50 18:00 Temperature Pulse Rate Respiratory Rate Blood Pressure 184/80 184/80 184/80 Blood Pressure [Left] O2 Sat by Pulse 97 96 96 Oximetry 04/20/19 04/20/19 04/20/19 18:10 18:18 18:20 Temperature Pulse Rate 82 Respiratory 18 Rate Blood Pressure 132/63 132/63 Blood Pressure 132/63 [Left] O2 Sat by Pulse 100 96 99 Oximetry 04/20/19 04/20/19 04/20/19 18:30 18:40 18:50 Temperature Pulse Rate Respiratory Rate Blood Pressure 132/63 132/63 132/63 Blood Pressure [Left] O2 Sat by Pulse 98 98 100 Oximetry 04/20/19 04/20/19 04/20/19 19:00 19:10 19:15 Temperature 97.8 F Pulse Rate 81 Respiratory 16 Rate Blood Pressure 132/63 195/93 Blood Pressure 209/99 [Left] O2 Sat by Pulse 100 100 100 Oximetry 04/20/19 04/20/19 04/20/19 19:20 19:30 19:40 Temperature Pulse Rate 82 80 82 Respiratory 15 20 15 Rate Blood Pressure 209/99 203/94 203/94 Blood Pressure [Left] O2 Sat by Pulse 99 100 100 Oximetry 04/20/19 04/20/19 04/20/19 19:45 19:50 20:00 Temperature Pulse Rate 81 81 Respiratory 16 19 17 Rate Blood Pressure 159/77 Blood Pressure [Left] O2 Sat by Pulse 100 92 Oximetry 04/20/19 04/20/19 04/20/19 20:10 20:15 20:20 Temperature Pulse Rate 81 82 Respiratory 16 16 17 Rate Blood Pressure 159/77 159/77 Blood Pressure [Left] O2 Sat by Pulse 93 88 Oximetry 04/20/19 20:25 Temperature 97.8 F Pulse Rate 77 Respiratory 16 Rate Blood Pressure Blood Pressure 159/77 [Left] O2 Sat by Pulse 98 Oximetry - Consultations Consultation #1: 04/20/19 17:54 Spoke w/ Dr Raza, will see the pt ED Lower Extremity MDM - Lab Data Result diagrams: 04/21/19 07:40 04/21/19 07:40 - Radiology Data Radiology results: report reviewed, image reviewed - Medical Decision Making 54-year-old female with infected necrotic ulcer of the left heel. WBCs of 15, patient afebrile, not tachycardic. Hyperglycemic with glucose of 338, however, pt not in DKA. X-ray only shows soft tissue swelling. Vancomycin and cefepime given. Dr Raza, general surgeon, consulted and is aware of the patient. Will admit to hospitalist for further management. - Differential Diagnosis infected ulcer, gangrene, osteomyelitis Critical care attestation.: If time is entered above; I have spent that time in minutes in the direct care of this critically ill patient, excluding procedure time. ED Disposition Clinical Impression: Infected ulcer of skin, Hyperglycemia Disposition: OP ADMIT IP TO THIS HOSP Is pt being admited?: Yes Condition: Stable Time of Disposition: 17:01
--- NOTE | 2019-04-20 17:09 | XRay Report ---
PROCEDURE: XR FOOT 3+V LT TECHNIQUE: Frontal, lateral, oblique views left foot HISTORY: plantar wound COMPARISONS: None FINDINGS: The bony structures are osteopenic. There is no evidence of fracture, subluxation and no definite evidence of lytic or blastic change. There is deformity of the distal metaphysis of the fourth metatarsal suggestive of sequela of previou s fracture. There is marked atherosclerotic vascular calcification. There is diffuse soft tissue swelling of the lower leg, ankle and foot. IMPRESSION: 1. Diffuse soft tissue swelling with extensive atherosclerotic vascular calcification. 2. No definite plain film evidence of an acute bony abnormality. If there is a clinical concern for osteomyelitis, MRI may be helpful. This document is electronically signed by Autumn Souza MD., April 20 2019 05:07:53 PM ET
[2019-04-20] MEDS ORDERED: ZOFRAN IV ONE (19:22)
[2019-04-20] MEDS ORDERED: DILAUDID IV ONE (19:22)
[2019-04-20] MEDS ORDERED: AMBIEN PO PRN (19:36)
[2019-04-20] MEDS ORDERED: TYLENOL PO PRN (19:38)
[2019-04-20] MEDS ORDERED: SODIUM CHLORIDE FLUSH SYRINGE 10 ML IV PRN (19:38)
[2019-04-20] MEDS ORDERED: D50W (25GM) Syringe IV PRN (19:38)
[2019-04-20] MEDS ORDERED: PERCOCET 5/325 PO PRN (19:50)
[2019-04-20] MEDS ORDERED: VANCOMYCIN PHARMACY TO DOSE IV SCH (20:00)
--- NOTE | 2019-04-20 20:04 | History and Physical Report ---
History of Present Illness Date of examination: 04/20/19 Date of admission: 04/20/2019 Chief complaint: left hell ulcer History of present illness: 54-year-old female with history of ESRD on HD M/W/, HTN, insulin-dependent diabetes who presents to [facility] ED with complaints of left foot drainage and pain. States that she started experiencing left foot pain approximately one week ago. She describes her pain as aching and rates it 4/10. On Tuesday of this week she started experiencing drainage along with progressively worsening left foot pain. She denies drainage being malodorous. She states that he did not receive dialysis today due to left foot pain and drainage. Admits: Nausea, left heel ulcer, and left foot pain Denies: Emesis, diarrhea, fever, headache, recent sick contact, gait abnormalities Past History Past Medical History: diabetes (insulin-dependent), ESRD (on HD M/W/), hypertension Past Surgical History: Other (left upper arm AV fistula) Social history: no significant social history Family history: no significant family history Medications and Allergies Allergies Allergy/AdvReac Type Severity Reaction Status Date / Time amlodipine Allergy Itching Verified 04/20/19 11:49 losartan Allergy Itching Verified 04/20/19 11:49 sulfamethoxazole Allergy Rash Verified 04/20/19 11:49 [From Bactrim] trimethoprim [From Bactrim] Allergy Rash Verified 04/20/19 11:49 morphine AdvReac Vomiting Verified 04/20/19 11:49 Home Medications Medication Instructions Recorded Confirmed Last Taken Type Insulin Glargine [Lantus VIAL] 15 unit SUB-Q DAILY 08/02/17 04/20/19 3 Days Ago History ~02/25/18 Torsemide [Demadex] 40 mg PO DAILY 08/02/17 04/20/19 3 Days Ago History ~02/25/18 Metoprolol [Lopressor TAB] 100 mg PO BID 12/01/18 04/20/19 Unknown History Minoxidil [Loniten] 10 mg PO DAILY 12/01/18 04/20/19 Unknown History Zolpidem [Ambien] 5 mg PO QHS PRN tablet 12/05/18 04/20/19 Unknown Rx Insulin Lispro [Humalog 100 7 units SUB-Q TIDAC 04/20/19 04/20/19 Unknown History UNITS/ML Kwikpen] Active Meds: Active Medications Acetaminophen (Tylenol) 650 mg PO Q4H PRN PRN Reason: Pain MILD(1-3)/Fever >100.5/CASTILLO Dextrose (D50w (25gm) Syringe) 50 ml IV PRN PRN PRN Reason: Hypoglycemia Docusate Sodium (Colace) 100 mg PO BID [facility] Heparin Sodium (Porcine) (Heparin) 5,000 unit SUB-Q Q12HR [facility] Hydromorphone HCl (Dilaudid) 0.5 mg IV Q3H PRN PRN Reason: Pain , Severe (7-10) Stop: 04/21/19 23:59 Ampicillin Sodium/Sulbactam Sodium (Unasyn/Ns 1.5 Gm/50 Ml) 1.5 gm in 50 mls @ 100 mls/hr IV Q6HR [facility]; Protocol Insulin Glargine (Lantus) 15 units SUB-Q QHS [facility] Insulin Human Lispro (Humalog) 0 unit SUB-Q ACHS [facility]; Protocol Metoprolol Tartrate (Lopressor) 100 mg PO BID [facility] Minoxidil (Loniten) 10 mg PO DAILY [facility] Miscellaneous Medication (Torsemide [Demadex]) 40 mg PO DAILY [facility] Ondansetron HCl (Zofran) 4 mg IV Q8H PRN PRN Reason: Nausea And Vomiting Oxycodone/Acetaminophen (Percocet 5/325) 1 tab PO Q6H PRN PRN Reason: Pain, Moderate (4-6) Sodium Chloride (Sodium Chloride Flush Syringe 10 Ml) 10 ml IV BID [facility] Sodium Chloride (Sodium Chloride Flush Syringe 10 Ml) 10 ml IV PRN PRN PRN Reason: LINE FLUSH Zolpidem Tartrate (Ambien) 5 mg PO QHS PRN PRN Reason: Sleep Review of Systems All systems: negative (reviewed in no additional remarkable complaints except as noted) Gastrointestinal: nausea Musculoskeletal: other (left heel sore, left heel pain) Exam - Physical Exam Narrative exam: Physical exam General appearance: Present: Mild distress, alert and oriented 3, - [place] middle aged adult female - EENT Eyes: Present: PERRL, EOM intact ENT: hearing intact, normal dentition - Neck Neck: Present: supple, normal ROM - Respiratory Respiratory effort: Non-labored Respiratory: bilateral: diminished (bases) - Cardiovascular Heart rate: 77 (bpm) Rhythm: regular Heart Sounds: Present: S1 & S2. Absent: rub, click - Extremities Extremities: no ischemia, pulses intact, abnormal (bilateral lower extremity trace edema, left heel ulcer) - Peripheral Assessment Peripheral Pulses: within normal limits - Abdominal General gastrointestinal: soft, non-tender, normal bowel sounds - Integumentary Integumentary: Present: warm, dry - Musculoskeletal Musculoskeletal: Able to move all extremities -Neurological Neurological: CNII-XII intact - Psychiatric Psychiatric: cooperative - Constitutional Vitals: Temp Pulse Resp BP Pulse Ox 97.8 F 81 16 209/99 100 04/20/19 19:15 04/20/19 19:15 04/20/19 19:45 04/20/19 19:15 04/20/19 19:15 Results - Labs CBC & Chem 7: 04/20/19 12:09 04/20/19 12:09 Labs: Laboratory Last Values WBC 15.1 K/mm3 (4.5-11.0) H 04/20/19 12:09 RBC 4.50 M/mm3 (3.65-5.03) 04/20/19 12:09 Hgb 10.7 gm/dl (10.1-14.3) 04/20/19 12:09 Hct 32.7 % (30.3-42.9) 04/20/19 12:09 MCV 73 fl (79-97) L 04/20/19 12:09 MCH 24 pg (28-32) L 04/20/19 12:09 MCHC 33 % (30-34) 04/20/19 12:09 RDW 17.3 % (13.2-15.2) H 04/20/19 12:09 Plt Count 298 K/mm3 (140-440) 04/20/19 12:09 Sodium 133 mmol/L (137-145) L 04/20/19 12:09 Potassium 4.2 mmol/L (3.6-5.0) 04/20/19 12:09 Chloride 88.4 mmol/L (98-107) L 04/20/19 12:09 Carbon Dioxide 27 mmol/L (22-30) 04/20/19 12:09 22 mmol/L 04/20/19 12:09 BUN 34 mg/dL (7-17) H 04/20/19 12:09 5.0 mg/dL (0.7-1.2) H 04/20/19 12:09 Estimated GFR 11 ml/min 04/20/19 12:09 7 % 04/20/19 12:09 Glucose 338 mg/dL (65-100) H 04/20/19 12:09 POC Glucose 272 (70-105) H 04/20/19 18:55 Calcium 9.0 mg/dL (8.4-10.2) 04/20/19 12:09 Phosphorus 3.60 mg/dL (2.5-4.5) 04/20/19 12:09 0.90 mg/dL (0.1-1.2) 04/20/19 12:09 AST 34 units/L (5-40) 04/20/19 12:09 ALT 22 units/L (7-56) 04/20/19 12:09 561 units/L (35-129) H 04/20/19 12:09 NT-Pro-B Natriuret Pep 00059 pg/mL (0-900) H 04/20/19 12:09 8.4 g/dL (6.3-8.2) H 04/20/19 12:09 3.5 g/dL (3.9-5) L 04/20/19 12:09 0.7 % 04/20/19 12:09 - Imaging and Cardiology Imaging and Cardiology: Left Foot XR: IMPRESSION: 1. Diffuse soft tissue swelling with extensive atherosclerotic vascular calcification. 2. No definite plain film evidence of an acute bony abnormality. If there is a clinical concern for osteomyelitis, MRI may be helpful. Assessment and Plan Assessment and plan: 54-year-old female with history of ESRD on HD M/W/F, HTN, insulin-dependent diabetes who presents to [facility] ED with complaints of left foot drainage and pain for the past week. Patient is afebrile with leukocytosis at 15.1. Foot x-ray showed diffuse soft tissue swelling with extensive atherosclerotic vascular calcification. On examination there is necrotic tissue to left heel, with moist wound base. Temperature of heel is consistent with body temperature will admit to surgical floor. Dr. Raza (Gen Surg) has been consulted. Admits: Nausea, left heel ulcer, and left foot pain Denies: Emesis, diarrhea, fever, headache, recent sick contact, gait abnormalities Osteomyelitis-likely Hypertensive urgency Insulin-dependent diabetes mellitus ESRD on HD M/W/F Leukocytosis Hyponatremia Plan: Continue supportive care MRI left foot pending Start IV Unasyn and vancomycin Infectious disease consult pending Wound care consult pending NPO Gen Surg (Dr. Raza) following Monitor electrolytes Nephrology consult pending for electrolytes and HD management POC BG monitoring Lantus 15 units daily at bedtime, sliding scale coverage Monitor BP Resume home antihypertensive med: Metoprolol 100 mg twice a day, minoxidil 10 mg daily, torsemide 40 mg daily IV hydralazine when necessary DVT PPX on heparin Advance Directives: No VTE prophylaxis?: Chemical Plan of care discussed with patient/family: Yes
[2019-04-20] MEDS ORDERED: APRESOLINE IV PRN (20:06)
[2019-04-20] MEDS: ZOFRAN IV PRN (21:41)
[2019-04-20] MEDS: UNASYN/NS 1.5 GM/50 ML 1.5 GM/50 ML BAG IV SCH (23:46)
[2019-04-20] MEDS: LOPRESSOR PO SCH (23:46)
[2019-04-20] MEDS: DILAUDID IV PRN (23:46)
[2019-04-20] MEDS: COLACE PO SCH (23:46)
[2019-04-20] MEDS: SODIUM CHLORIDE FLUSH SYRINGE 10 ML IV SCH (23:47)
[2019-04-20] MEDS: HumaLOG SUB-Q SCH (23:48)
[2019-04-20] MEDS: LANTUS SUB-Q SCH (23:48)
[2019-04-20] MEDS: HEPARIN SUB-Q SCH (23:48)
[2019-04-21] MEDS: LOPRESSOR PO SCH ×3 (00:04→23:47)
[2019-04-21] MEDS: COLACE PO SCH ×2 (00:05→23:42)
[2019-04-21] MEDS: DILAUDID IV PRN (05:01)
[2019-04-21] MEDS: UNASYN/NS 1.5 GM/50 ML 1.5 GM/50 ML BAG IV SCH (05:02)
[2019-04-21] MEDS: ZOFRAN IV PRN ×2 (06:14→09:32)
[2019-04-21 08:20] LABS: Hematocrit 31.9 % (30.3-42.9); Hemoglobin 10.1 gm/dl (10.1-14.3); Mean Corpuscular HGB Conc 32 % (30-34); Mean Corpuscular Volume 73 fl (79-97); Platelet Count 309 K/mm3 (140-440); Red Blood Count 4.37 M/mm3 (3.65-5.03); Red Cell Distribution Width 17.6 % (13.2-15.2)
[2019-04-21 08:40] LABS: Calcium 8.8 mg/dL (8.4-10.2)
--- NOTE | 2019-04-21 09:22 | Progress Note ---
Assessment and Plan Assessment and plan: 54-year-old female with history of ESRD on HD M/W/F, HTN, insulin-dependent diabetes who presents to [facility] ED with complaints of left foot drainage and pain for the past week. Patient is afebrile with leukocytosis at 15.1. Foot x-ray showed diffuse soft tissue swelling with extensive atherosclerotic vascular calcification. On examination there is necrotic tissue to left heel, with moist wound base. Left heel ulcer. To r/o Osteomyelitis-l Hypertensive urgency Insulin-dependent diabetes mellitus ESRD on HD M/W/F Leukocytosis Hyponatremia Plan: Continue supportive care MRI left foot ordered, pending Started IV Unasyn and vancomycin Infectious disease consult pending Wound care consult pending NPO Gen Surg (Dr. Raza) following Monitor electrolytes POC BG monitoring Lantus 15 units daily at bedtime, sliding scale coverage Monitor BP Resume home antihypertensive med: Metoprolol 100 mg twice a day, minoxidil 10 mg daily, torsemide 40 mg daily IV hydralazine when necessary DVT PPX on heparin History Interval history: Left heel ulcer with drainage for 1 week Hospitalist Physical - Physical exam Narrative exam: Gen: Not in acute distress, lying in bed, HEENT: Normocephalic, atraumatic Neck: supple, no JVD Heart: S1 and S2 reg, no murmurs, rubs or gallop Lungs: Clear, no crackles, no wheeze Abd: soft, non tender, non distended, normal BS Ext: Left heel ulcer, covered with dressing, no cyanosis, Neuro: Awake,alert, oriented x 3, moves all ext, non focal Psych:Normal mood - Constitutional Vitals: Temp Pulse Resp BP Pulse Ox 99.1 F 78 20 123/60 100 04/20/19 23:41 04/21/19 00:04 04/20/19 23:41 04/21/19 00:04 04/20/19 23:41 Results - Labs CBC & Chem 7: 04/21/19 07:40 04/21/19 07:40 Labs: Laboratory Last Values WBC 12.4 K/mm3 (4.5-11.0) H 04/21/19 07:40 RBC 4.37 M/mm3 (3.65-5.03) 04/21/19 07:40 Hgb 10.1 gm/dl (10.1-14.3) 04/21/19 07:40 Hct 31.9 % (30.3-42.9) 04/21/19 07:40 MCV 73 fl (79-97) L 04/21/19 07:40 MCH 23 pg (28-32) L 04/21/19 07:40 MCHC 32 % (30-34) 04/21/19 07:40 RDW 17.6 % (13.2-15.2) H 04/21/19 07:40 Plt Count 309 K/mm3 (140-440) 04/21/19 07:40 Sodium 138 mmol/L (137-145) 04/21/19 07:40 Potassium 4.2 mmol/L (3.6-5.0) 04/21/19 07:40 Chloride 92.0 mmol/L (98-107) L 04/21/19 07:40 Carbon Dioxide 28 mmol/L (22-30) 04/21/19 07:40 22 mmol/L 04/21/19 07:40 BUN 39 mg/dL (7-17) H 04/21/19 07:40 5.8 mg/dL (0.7-1.2) H 04/21/19 07:40 Estimated GFR 9 ml/min 04/21/19 07:40 7 % 04/21/19 07:40 Glucose 87 mg/dL (65-100) 04/21/19 07:40 POC Glucose 98 (70-105) 04/21/19 05:30 Calcium 8.8 mg/dL (8.4-10.2) 04/21/19 07:40 Phosphorus 3.60 mg/dL (2.5-4.5) 04/20/19 12:09 0.90 mg/dL (0.1-1.2) 04/20/19 12:09 AST 34 units/L (5-40) 04/20/19 12:09 ALT 22 units/L (7-56) 04/20/19 12:09 561 units/L (35-129) H 04/20/19 12:09 NT-Pro-B Natriuret Pep 70957 pg/mL (0-900) H 04/20/19 12:09 8.4 g/dL (6.3-8.2) H 06/21/19 12:09 3.5 g/dL (3.9-5) L 04/20/19 12:09 0.7 % 04/20/19 12:09 Active Medications - Current Medications Current Medications: Generic Name Dose Route Start Last Admin Trade Name Freq PRN Reason Stop Dose Admin Acetaminophen 650 mg 04/20/19 19:38 Tylenol PO Q4H PRN Pain MILD(1-3)/Fever >100.5/CASTILLO Dextrose 50 ml 04/20/19 19:38 D50w (25gm) Syringe IV PRN PRN Hypoglycemia Docusate Sodium 100 mg 04/20/19 22:00 04/21/19 00:05 Colace PO Not Given BID [facility] Heparin Sodium (Porcine) 5,000 unit 04/20/19 22:00 04/20/19 23:48 Heparin SUB-Q 5,000 unit Q12HR [facility] Administration Hydralazine HCl 10 mg 04/20/19 20:06 Apresoline IV Q4HR PRN Blood Pressure Hydromorphone HCl 0.5 mg 04/20/19 19:51 04/21/19 05:01 Dilaudid IV 04/21/19 23:59 0.5 mg Q3H PRN Administration Pain , Severe (7-10) Ampicillin Sodium/Sulbactam Sodium 1.5 gm in 50 mls @ 100 mls/hr 04/21/19 00:00 04/21/19 05:02 Unasyn/Ns 1.5 Gm/50 Ml IV 100 mls/hr Q6HR [facility] Administration Protocol Insulin Glargine 15 units 04/20/19 22:00 04/20/19 23:48 Lantus SUB-Q Not Given QHS [facility] Insulin Human Lispro 0 unit 04/20/19 22:00 04/20/19 23:48 Humalog SUB-Q Not Given ACHS [facility] Protocol Metoprolol Tartrate 100 mg 04/20/19 22:00 04/21/19 00:04 Lopressor PO Not Given BID [facility] Minoxidil 10 mg 04/21/19 10:00 Loniten PO DAILY [facility] Ondansetron HCl 4 mg 04/20/19 19:38 04/21/19 06:14 Zofran IV 4 mg Q8H PRN Administration Nausea And Vomiting Oxycodone/Acetaminophen 1 tab 04/20/19 19:50 Percocet 5/325 PO Q6H PRN Pain, Moderate (4-6) Sodium Chloride 10 ml 04/20/19 22:00 04/20/19 23:47 Sodium Chloride Flush Syringe 10 Ml IV 10 ml BID [facility] Administration Sodium Chloride 10 ml 04/20/19 19:38 Sodium Chloride Flush Syringe 10 Ml IV PRN PRN LINE FLUSH Torsemide 40 mg 04/21/19 10:00 Demadex PO DAILY [facility] Zolpidem Tartrate 5 mg 04/20/19 19:36 Ambien PO QHS PRN Sleep
[2019-04-21] MEDS: HumaLOG SUB-Q SCH (09:33)
[2019-04-21 09:52] LABS: Basophils # (Auto) 0.1 K/mm3 (0.0-0.1); Eosinophils # (Auto) 0.3 K/mm3 (0.0-0.4); Eosinophils % (Auto) 2.8 % (0.0-4.3); Monocytes # (Auto) 1.1 K/mm3 (0.0-0.8); Monocytes % (Auto) 9.2 % (0.0-7.3)
[2019-04-21] MEDS ORDERED: NON-FORMULARY (Torsemide [Demadex] 40 MG) PO SCH (10:00)
[2019-04-21] MEDS ORDERED: ZOFRAN IV ONE (10:00)
[2019-04-21] MEDS: HEPARIN SUB-Q SCH ×2 (10:54→23:24)
[2019-04-21] MEDS: SODIUM CHLORIDE FLUSH SYRINGE 10 ML IV SCH (10:55)
--- NOTE | 2019-04-21 10:58 | Consultation ---
History of Present Illness Consult date: 04/21/19 Reason for consult: wound care Requesting physician: BELINDA DELCID Chief complaint: left heel pain - History of present illness History of present illness: 54yo F with DM presents to ED with severe left heel pain. Just recently realized she had an ulcer. Has sensation in the foot. We are asked to see her for an infected heel ulcer. +N/V. no known vascular disease. Past History Past Medical History: diabetes (insulin-dependent), ESRD (on HD M/W/F), hypertension Past Surgical History: Other (left upper arm AV fistula) Social history: no significant social history Family history: no significant family history Medications and Allergies Allergies Allergy/AdvReac Type Severity Reaction Status Date / Time amlodipine Allergy Itching Verified 04/20/19 11:49 losartan Allergy Itching Verified 04/20/19 11:49 sulfamethoxazole Allergy Rash Verified 04/20/19 11:49 [From Bactrim] trimethoprim [From Bactrim] Allergy Rash Verified 04/20/19 11:49 morphine AdvReac Vomiting Verified 04/20/19 11:49 Home Medications Medication Instructions Recorded Confirmed Last Taken Type Insulin Glargine [Lantus VIAL] 15 unit SUB-Q DAILY 08/02/17 04/20/19 3 Days Ago History ~02/25/18 Torsemide [Demadex] 40 mg PO DAILY 08/02/17 04/20/19 3 Days Ago History ~02/25/18 Metoprolol [Lopressor TAB] 100 mg PO BID 12/01/18 04/20/19 Unknown History Minoxidil [Loniten] 10 mg PO DAILY 12/01/18 04/20/19 Unknown History Zolpidem [Ambien] 5 mg PO QHS PRN tablet 12/05/18 04/20/19 Unknown Rx Insulin Lispro [Humalog 100 7 units SUB-Q TIDAC 04/20/19 04/20/19 Unknown History UNITS/ML Kwikpen] Atropine 1% Ophth Soln 1 drop OS BID 04/21/19 04/21/19 Unknown History Moxifloxacin 0.5% [Vigamox] 1 drop OS 4XD 04/21/19 04/21/19 Unknown History Prednisolone Acet 1% Eye Drop 1 drop OS 4XD 04/21/19 04/21/19 Unknown History Active Meds: Active Medications Acetaminophen (Tylenol) 650 mg PO Q4H PRN PRN Reason: Pain MILD(1-3)/Fever >100.5/CASTILLO Atropine Sulfate (Isopto Atropine) 1 drops OS BID [facility] Dextrose (D50w (25gm) Syringe) 50 ml IV PRN PRN PRN Reason: Hypoglycemia Docusate Sodium (Colace) 100 mg PO BID [facility] Last Admin: 04/21/19 00:05 Dose: Not Given Documented by: Heparin Sodium (Porcine) (Heparin) 5,000 unit SUB-Q Q12HR [facility] Last Admin: 04/21/19 10:54 Dose: Not Given Documented by: Hydralazine HCl (Apresoline) 10 mg IV Q4HR PRN PRN Reason: Blood Pressure Hydromorphone HCl (Dilaudid) 0.5 mg IV Q3H PRN PRN Reason: Pain , Severe (7-10) Stop: 04/21/19 23:59 Last Admin: 04/21/19 05:01 Dose: 0.5 mg Documented by: Ampicillin Sodium/Sulbactam Sodium (Unasyn/Ns 1.5 Gm/50 Ml) 1.5 gm in 50 mls @ 100 mls/hr IV Q6HR [facility]; Protocol Last Admin: 04/21/19 05:02 Dose: 100 mls/hr Documented by: Insulin Glargine (Lantus) 15 units SUB-Q QHS [facility] Last Admin: 04/20/19 23:48 Dose: Not Given Documented by: Insulin Human Lispro (Humalog) 0 unit SUB-Q ACHS [facility]; Protocol Last Admin: 04/21/19 09:33 Dose: Not Given Documented by: Metoprolol Tartrate (Lopressor) 100 mg PO BID [facility] Last Admin: 04/21/19 00:04 Dose: Not Given Documented by: Minoxidil (Loniten) 10 mg PO DAILY [facility] Moxifloxacin HCl (Vigamox) 1 drops OS QID [facility] Ondansetron HCl (Zofran) 4 mg IV Q8H PRN PRN Reason: Nausea And Vomiting Last Admin: 04/21/19 09:32 Dose: 4 mg Documented by: Oxycodone/Acetaminophen (Percocet 5/325) 1 tab PO Q6H PRN PRN Reason: Pain, Moderate (4-6) Prednisolone Acetate (Pred Forte 1%) 1 drops OS QID [facility] Sodium Chloride (Sodium Chloride Flush Syringe 10 Ml) 10 ml IV BID [facility] Last Admin: 04/21/19 10:55 Dose: 10 ml Documented by: Sodium Chloride (Sodium Chloride Flush Syringe 10 Ml) 10 ml IV PRN PRN PRN Reason: LINE FLUSH Torsemide (Demadex) 40 mg PO DAILY [facility] Zolpidem Tartrate (Ambien) 5 mg PO QHS PRN PRN Reason: Sleep Review of Systems - Constitutional no fever, no chills, no chronic pain - Cardiovascular no chest pain, no shortness of breath - Respiratory no cough - Gastrointestinal nausea, vomiting, no abdominal pain - Muskuloskeletal left: foot pain - Integumentary foot/leg ulcers Exam Vital Signs Temp Pulse Resp BP Pulse Ox 98.4 F 85 18 185/87 96 04/20/19 12:19 04/20/19 12:19 04/20/19 12:19 04/20/19 12:04/20/19 12:19 - General physical appearance Positive: no distress, no pain, other (appears slightly ill) - Eyes Positive: normal occular movement - Respiratory Positive: normal expansion, normal respiratory effort - Extremities Extremity abnormal: other (large, black eschar noted on left heel. Surrounding area is boggy and tender. No erythema. Foot warm. +DP and PT pulses) Peripheral Pulses: within normal limits - Neurologic Neurologic: alert and oriented to time, place and person - Psychiatric Psychiatric: appropriate mood/affect, intact judgment & insight, cooperative Results - Labs 04/21/19 07:40 04/21/19 07:40 Abnormal lab results 04/20/19 04/20/19 04/20/19 Range/Units 12:09 12:09 18:55 WBC 15.1 H (4.5-11.0) K/mm3 MCV 73 L (79-97) fl MCH 24 L (28-32) pg RDW 17.3 H (13.2-15.2) % Wharton % (Auto) (0.0-7.3) % Wharton # (0.0-0.8) K/mm3 Seg Neutrophils % (40.0-70.0) % Seg Neutrophils # (1.8-7.7) K/mm3 Sodium 133 L (137-145) mmol/L Chloride 88.4 L (98-107) mmol/L BUN 34 H (7-17) mg/dL Creatinine 5.0 H (0.7-1.2) mg/dL Glucose 338 H (65-100) mg/dL POC Glucose 272 H (70-105) Alkaline Phosphatase 561 H (35-129) units/L NT-Pro-B Natriuret Pep 82448 H (0-900) pg/mL Total Protein 8.4 H (6.3-8.2) g/dL Albumin 3.5 L (3.9-5) g/dL 04/20/19 04/21/19 04/21/19 Range/Units 23:13 07:40 07:40 WBC 12.4 H (4.5-11.0) K/mm3 MCV 73 L (79-97) fl MCH 23 L (28-32) pg RDW 17.6 H (13.2-15.2) % Wharton % (Auto) 9.2 H (0.0-7.3) % Wharton # 1.1 H (0.0-0.8) K/mm3 Seg Neutrophils % 76.7 H (40.0-70.0) % Seg Neutrophils # 8.9 H (1.8-7.7) K/mm3 Sodium (137-145) mmol/L Chloride 92.0 L (98-107) mmol/L BUN 39 H (7-17) mg/dL Creatinine 5.8 H (0.7-1.2) mg/dL Glucose (65-100) mg/dL POC Glucose 194 H (70-105) Alkaline Phosphatase (35-129) units/L NT-Pro-B Natriuret Pep (0-900) pg/mL Total Protein (6.3-8.2) g/dL Albumin (3.9-5) g/dL Diabetes panel 04/20/19 04/21/19 Range/Units 12:09 07:40 Sodium 133 L 138 (137-145) mmol/L Potassium 4.2 4.2 (3.6-5.0) mmol/L Chloride 88.4 L 92.0 L (98-107) mmol/L Carbon Dioxide 27 28 (22-30) mmol/L BUN 34 H 39 H (7-17) mg/dL Creatinine 5.0 H 5.8 H (0.7-1.2) mg/dL Glucose 338 H 87 (65-100) mg/dL Calcium 9.0 8.8 (8.4-10.2) mg/dL AST 34 (5-40) units/L ALT 22 (7-56) units/L Alkaline Phosphatase 561 H (35-129) units/L Total Protein 8.4 H (6.3-8.2) g/dL Albumin 3.5 L (3.9-5) g/dL Calcium panel 04/20/19 04/21/19 Range/Units 12:09 07:40 Calcium 9.0 8.8 (8.4-10.2) mg/dL Phosphorus 3.60 (2.5-4.5) mg/dL Albumin 3.5 L (3.9-5) g/dL Pituitary panel 04/20/19 04/21/19 Range/Units 12:09 07:40 Sodium 133 L 138 (137-145) mmol/L Potassium 4.2 4.2 (3.6-5.0) mmol/L Chloride 88.4 L 92.0 L (98-107) mmol/L Carbon Dioxide 27 28 (22-30) mmol/L BUN 34 H 39 H (7-17) mg/dL Creatinine 5.0 H 5.8 H (0.7-1.2) mg/dL Glucose 338 H 87 (65-100) mg/dL Calcium 9.0 8.8 (8.4-10.2) mg/dL Adrenal panel 04/20/19 04/21/19 Range/Units 12:09 07:40 Sodium 133 L 138 (137-145) mmol/L Potassium 4.2 4.2 (3.6-5.0) mmol/L Chloride 88.4 L 92.0 L (98-107) mmol/L Carbon Dioxide 27 28 (22-30) mmol/L BUN 34 H 39 H (7-17) mg/dL Creatinine 5.0 H 5.8 H (0.7-1.2) mg/dL Glucose 338 H 87 (65-100) mg/dL Calcium 9.0 8.8 (8.4-10.2) mg/dL Total Bilirubin 0.90 (0.1-1.2) mg/dL AST 34 (5-40) units/L ALT 22 (7-56) units/L Alkaline Phosphatase 561 H (35-129) units/L Total Protein 8.4 H (6.3-8.2) g/dL Albumin 3.5 L (3.9-5) g/dL - Imaging Additional studies: Left foot x-ray report reviewed Assessment and Plan - Patient Problems (1) Diabetic ulcer of heel Current Visit: Yes Status: Acute Qualifiers: Laterality: left Non-pressure ulcer stage: with fat layer exposed Plan to address problem: Pt stable. Pt in need of debridement. Options given for bedside debridement versus OR. Patient elected to go to the OR. Procedure, risks, benefits were discussed. All questions were answered. Consent was obtained. To OR today Please call with questions. time=30min
[2019-04-21] MEDS ORDERED: NACL 0.9% 100 ML IV PRN (11:51)
[2019-04-21] MEDS ORDERED: PROCRIT IV PRN (11:51)
[2019-04-21 12:13] LABS: Basophils % (Manual) 0 % (0.0-1.8); Total Cells Counted 100
[2019-04-21 12:14] LABS: Hypochromasia 1+; Platelet Estimate Consistent w Auto; Target Cells 2+
--- NOTE | 2019-04-21 12:37 | Consultation ---
History of Present Illness - Reason for Consult Consult date: 04/21/19 end stage renal disease - History of Present Illness Very pleasant 54-year-old -[place] female with a past medical history of end-stage renal disease in the setting of diabetes and hypertension, well known to us in the outpatient dialysis unit, who presents today with left foot ulcer. Plan is for OR for debridement of the aforementioned foot ulcer. She dialyzes on a Tuesday schedule. She is due for dialysis today. This morning she does complain of some mild nausea. Her last hemodialysis session was Tuesday. Past History Past Medical History: diabetes (insulin-dependent), ESRD (on HD M/W/F), hypertension Past Surgical History: Other (left upper arm AV fistula) Social history: no significant social history Family history: no significant family history Medications and Allergies Allergies Allergy/AdvReac Type Severity Reaction Status Date / Time amlodipine Allergy Itching Verified 04/20/19 11:49 losartan Allergy Itching Verified 04/20/19 11:49 sulfamethoxazole Allergy Rash Verified 04/20/19 11:49 [From Bactrim] trimethoprim [From Bactrim] Allergy Rash Verified 04/20/19 11:49 morphine AdvReac Vomiting Verified 04/20/19 11:49 Home Medications Medication Instructions Recorded Confirmed Last Taken Type Insulin Glargine [Lantus VIAL] 15 unit SUB-Q DAILY 08/02/17 04/20/19 3 Days Ago History ~02/25/18 Torsemide [Demadex] 40 mg PO DAILY 08/02/17 04/20/19 3 Days Ago History ~02/25/18 Metoprolol [Lopressor TAB] 100 mg PO BID 12/01/18 04/20/19 Unknown History Minoxidil [Loniten] 10 mg PO DAILY 12/01/18 04/20/19 Unknown History Zolpidem [Ambien] 5 mg PO QHS PRN tablet 12/05/18 04/20/19 Unknown Rx Insulin Lispro [Humalog 100 7 units SUB-Q TIDAC 04/20/19 04/20/19 Unknown History UNITS/ML Kwikpen] Atropine 1% Ophth Soln 1 drop OS BID 04/21/19 04/21/19 Unknown History Moxifloxacin 0.5% [Vigamox] 1 drop OS 4XD 04/21/19 04/21/19 Unknown History Prednisolone Acet 1% Eye Drop 1 drop OS 4XD 04/21/19 04/21/19 Unknown History Active Meds: Active Medications Acetaminophen (Tylenol) 650 mg PO Q4H PRN PRN Reason: Pain MILD(1-3)/Fever >100.5/CASTILLO Atropine Sulfate (Isopto Atropine) 1 drops OS BID [facility] Dextrose (D50w (25gm) Syringe) 50 ml IV PRN PRN PRN Reason: Hypoglycemia Docusate Sodium (Colace) 100 mg PO BID [facility] Last Admin: 04/21/19 00:05 Dose: Not Given Documented by: Epoetin Jacoby (Procrit) 10,000 unit IV FRANCOIS PRN PRN Reason: hemodialysis Heparin Sodium (Porcine) (Heparin) 5,000 unit SUB-Q Q12HR [facility] Last Admin: 04/21/19 10:54 Dose: Not Given Documented by: Hydralazine HCl (Apresoline) 10 mg IV Q4HR PRN PRN Reason: Blood Pressure Hydromorphone HCl (Dilaudid) 0.5 mg IV Q3H PRN PRN Reason: Pain , Severe (7-10) Stop: 04/21/19 23:59 Last Admin: 04/21/19 05:01 Dose: 0.5 mg Documented by: Ampicillin Sodium/Sulbactam Sodium (Unasyn/Ns 1.5 Gm/50 Ml) 1.5 gm in 50 mls @ 100 mls/hr IV Q6HR [facility]; Protocol Last Admin: 04/21/19 05:02 Dose: 100 mls/hr Documented by: Sodium Chloride (Nacl 0.9%) 100 mls @ 999 mls/hr IV FRANCOIS PRN PRN Reason: Hypotension Insulin Glargine (Lantus) 15 units SUB-Q QHS [facility] Last Admin: 04/20/19 23:48 Dose: Not Given Documented by: Insulin Human Lispro (Humalog) 0 unit SUB-Q ACHS [facility]; Protocol Last Admin: 04/21/19 09:33 Dose: Not Given Documented by: Metoprolol Tartrate (Lopressor) 100 mg PO BID [facility] Last Admin: 04/21/19 00:04 Dose: Not Given Documented by: Minoxidil (Loniten) 10 mg PO DAILY [facility] Moxifloxacin HCl (Vigamox) 1 drops OS QID [facility] Ondansetron HCl (Zofran) 4 mg IV Q8H PRN PRN Reason: Nausea And Vomiting Last Admin: 04/21/19 09:32 Dose: 4 mg Documented by: Oxycodone/Acetaminophen (Percocet 5/325) 1 tab PO Q6H PRN PRN Reason: Pain, Moderate (4-6) Prednisolone Acetate (Pred Forte 1%) 1 drops OS QID [facility] Sodium Chloride (Sodium Chloride Flush Syringe 10 Ml) 10 ml IV BID [facility] Last Admin: 04/21/19 10:55 Dose: 10 ml Documented by: Sodium Chloride (Sodium Chloride Flush Syringe 10 Ml) 10 ml IV PRN PRN PRN Reason: LINE FLUSH Torsemide (Demadex) 40 mg PO DAILY [facility] Zolpidem Tartrate (Ambien) 5 mg PO QHS PRN PRN Reason: Sleep Review of Systems Constitutional: fatigue, weakness Gastrointestinal: abdominal pain, nausea Exam - Vital Signs Vital signs: Vital Signs Temp Pulse Resp BP Pulse Ox 98.4 F 85 18 185/87 96 04/20/19 12:19 04/20/19 12:19 04/20/19 12:19 04/20/19 12:19 04/20/19 12:19 - General Appearance General appearance: well-developed, well-nourished, appears stated age EENT: ATNC Neck: Present: neck supple, trachea midline Respiratory: Clear to Ascultation Heart: regular, S1S2 Gastrointestinal: Present: normal, normoactive bowel sounds Integumentary: no rash, warm and dry Neurologic: no focal deficit, no asterixis, alert and oriented x3 Musculoskeletal: Present: other (-edema ) Psychiatric: mood/affect appropriate, cooperative Results - Lab Results 04/21/19 07:40 04/21/19 07:40 Most recent lab results Calcium 8.8 mg/dL (8.4-10.2) 04/21/19 07:40 Phosphorus 3.60 mg/dL (2.5-4.5) 04/20/19 12:09 Assessment and Plan - Patient Problems (1) ESRD (end stage renal disease) Current Visit: No Status: Chronic Plan to address problem: Will write orders for hemodialysis today. Will maintain on a Tuesday inpatient hemodialysis schedule. (2) Diabetic ulcer of heel Current Visit: Yes Status: Acute Qualifiers: Laterality: left Plan to address problem: Plan for OR today for debridement of diabetic foot ulcer. (3) Hypertensive chronic kidney disease with stage 5 chronic kidney disease or end stage renal disease Current Visit: No Status: Chronic Plan to address problem: Continue home antihypertensive regimen and we'll monitor closely. (4) Type 2 diabetes mellitus with diabetic chronic kidney disease Current Visit: No Status: Chronic Qualifiers: Chronic kidney disease stage: on chronic dialysis Plan to address problem: Diabetes management per primary attending.
[2019-04-21] MEDS ORDERED: SUBLIMAZE IV PRN (15:45)
[2019-04-21] MEDS ORDERED: ZOFRAN IV PRN (15:45)
[2019-04-21] MEDS ORDERED: DIPRIVAN 10 MG/ML IV ONE (15:51)
--- NOTE | 2019-04-21 16:02 | Anesthesia Day of Surgery ---
Anesthesia Day of Surgery - Day of Surgery Patient Examined: Yes Patient H&P Reviewed: Yes Patient is NPO: Yes Beta Blockers: Yes
--- NOTE | 2019-04-21 16:04 | Anesthesia Consultation ---
Anesthesia Consult and Med Hx Date of service: 04/21/19 - Airway Anesthetic Teeth Evaluation: Good ROM Head & Neck: Adequate Mental/Hyoid Distance: Adequate Mallampati Class: Class III Intubation Access Assessment: Good - Pre-Operative Health Status ASA Pre-Surgery Classification: ASA3, Emergency Proposed Anesthetic Plan: General - Pulmonary Hx Smoking: Yes Hx Asthma: No COPD: No Hx Pneumonia: No Hx Sleep Apnea: No (GRECIA PRE SCREEN HIGH RISK) - Cardiovascular System Hx Hypertension: Yes Hx Angina: No Hx Heart Murmur: Yes (CAUSES NO PROBLEMS) - Central Nervous System Hx Psychiatric Problems: No - Endocrine Hx Renal Disease: Yes Hx End Stage Renal Disease: Yes (Last HD Tuesday) Hx Insulin Dependent Diabetes: Yes - Hematic Hx Anemia: Yes - Other Systems Hx Cancer: No
[2019-04-21] MEDS ORDERED: NACL 0.9% 1000 ML 1,000 ML ONE (16:09)
[2019-04-21] MEDS: ZOFRAN IV NR ×2 (16:16→23:22)
--- NOTE | 2019-04-21 16:54 | Event Note ---
Date: 04/21/19 ID consulted for left heel ulcer. Chart and wound image reviewed. Patient is currently off the floor getting debridement in the OR. Patient with ESRD, insulin-dependent diabetes. No fever. Patient with leukocytosis. Recs: Empiric IV cefepime, vancomycin Follow-up OR cultures May need MRI depending on OR findings Full consult to follow tomorrow Discussed with MARIAM Cheung MD [facility] C: [phone] O: [phone] F: [phone]
[2019-04-21] MEDS ORDERED: XYLOCAINE MPF 2% ONE (16:56)
[2019-04-21] MEDS ORDERED: ZEMURON IV ONE (16:56)
[2019-04-21] MEDS ORDERED: ZOFRAN ONE (16:56)
[2019-04-21] MEDS ORDERED: NEO SYNEPHRINE/NS Syringe(OR USE) IV ONE (17:40)
[2019-04-21] MEDS ORDERED: ROBINUL ONE (17:40)
[2019-04-21] MEDS ORDERED: BLOXIVERZ ONE (17:40)
--- NOTE | 2019-04-21 17:58 | Post Operative Note ---
Date of procedure: 04/21/19 (dictation:[id number]) Pre-op diagnosis: infected diabetic left heel ulcer Post-op diagnosis: same Findings: foul smelling, liquified necrosis of heel skin Procedure: Left heel debridement Anesthesia: GETA Surgeon: WALI LUCERO Estimated blood loss: minimal Pathology: list (tissue culture and left heel eschar) Specimen disposition: to lab Condition: stable Disposition: PACU
[2019-04-21] MEDS ORDERED: DAKIN'S HALF STRENGTH IR ONE (18:00)
[2019-04-21 20:14] LABS: Chol/HDL Ratio 2.56 %
--- NOTE | 2019-04-21 22:29 | Operative Report ---
PREOPERATIVE DIAGNOSIS: Infected diabetic left heel ulcer. POSTOPERATIVE DIAGNOSIS: Infected diabetic left heel ulcer. PROCEDURE: Debridement of left heel. ATTENDING PHYSICIAN: Drew Raza MD ANESTHESIA: General. ESTIMATED BLOOD LOSS: Minimal. FLUIDS: 300 mL. FINDINGS: Superficial sloughing of the epidermis at the left heel. Underlying tissue showed a combination of necrotic skin as well as liquified necrosis with a foul odor on the lateral aspect. Once this area was removed, I saw thrombosed veins underneath. The underlying subcutaneous tissue was healthy. SPECIMEN: We took tissue cultures as well as sent the eschar for permanent evaluation. DRAINS: None. COMPLICATIONS: None. All counts were correct at the end of the case. INDICATIONS: This is a 54-year-old female, who presented with complaints of the severe left heel pain. The patient was assessed to have infection in the left heel, felt to be in need for surgical debridement. Procedure, risks and benefits were explained to the patient. Risks included but were not limited to infection, bleeding, pain, injury to surrounding structures, possible need for further procedures in the future. The patient understood and consented. OPERATIVE NOTE: The patient was brought to the operating room and started under general anesthesia in her bed. Once general anesthesia was established, the patient was turned onto the OR bed in a prone position. All pressure points were padded. Sterile prep and drape was done, time-out was called. Antibiotics had already been given. I began by excising all the epidermis that has sloughed off. I then examined the liquified necrotic area very carefully. There was no collection of pus underneath it; however, all the tissue I think was infected as it was very foul smelling and liquified. The area under the eschar also appeared to have some component of liquefactive necrosis. Therefore, I felt I could not leave that. I therefore sharply excised all the necrotic tissue with a scalpel. I got back to clean healthy subcutaneous tissue. Hemostasis was achieved with electrocautery. As mentioned, a portion was sent for tissue culture, a portion was sent for permanent section. We irrigated out the heel. I then placed the Dakin's soaked Kerlix over the heel. Additional dressings were placed. The foot was wrapped with an Nader wrap. The patient tolerated the procedure well. There were no complications. All counts were correct at the end of the case. [facility]# [id number] MICHELLE/ADRIENNE MACIAS
[2019-04-21] MEDS: PRED FORTE 1% OS SCH ×2 (23:24→23:44)
[2019-04-21] MEDS: ISOPTO ATROPINE OS SCH (23:26)
[2019-04-21] MEDS: MAXIPIME/NS 1 GM/100 ML 1 GM/100 ML BAG IV SCH (23:45)
[2019-04-22] MEDS: UNASYN/NS 1.5 GM/50 ML 1.5 GM/50 ML BAG IV SCH ×2 (00:07→06:00)
[2019-04-22] MEDS: VIGAMOX OS SCH ×6 (00:13→22:06)
[2019-04-22] MEDS: HumaLOG SUB-Q SCH ×5 (07:34→18:35)
[2019-04-22] MEDS: LANTUS SUB-Q SCH ×2 (07:35→23:16)
[2019-04-22 08:23] LABS: Hematocrit 31.2 % (30.3-42.9); Hemoglobin 10.3 gm/dl (10.1-14.3); Mean Corpuscular HGB Conc 33 % (30-34); Mean Corpuscular Volume 73 fl (79-97); Platelet Count 262 K/mm3 (140-440); Red Blood Count 4.28 M/mm3 (3.65-5.03); Red Cell Distribution Width 17.5 % (13.2-15.2)
--- NOTE | 2019-04-22 09:56 | Consultation ---
History of Present Illness - Reason for Consult Consult date: 04/22/19 Left heel ulcer Requesting physician: BELINDA DELCID - History of Present Illness This patient is a 54-year-old female with a past medical history of ESRD on HD M/W/, HTN, Insulin-dependent diabetes who presents to the ED on 04/20/19 with complaints of left foot drainage and pain. She stated that she began experience left foot pain one week ago and drainage since Tuesday. On admission WBC 15.1, Creatinine 5.0, Temperature 98.4, HR 85, BP 185/87. Left Foot xray showed Diffuse soft tissue swelling with extensive atherosclerotic vascular calcification. She underwent a left heel debridement on 04/21/19. Surgical biopsy cultures are in progress. Review of Systems: General: no fever, chills, nightsweats, unintentional weight change, or change in appetite Cutaneous: no rash, pruritus Head: no headaches or injury Eyes: no changes in vision, eye pain, double vision Ears: no ear pain, ear discharge, ringing or hearing loss Nose: no nose bleeding, stuffiness Mouth & throat: no bleeding gums, no horseness, no dental problems, or swollen glands Neck: no pain, node enlargement/lumps, tyroid enlargement or tenderness Respiratory: no cough, wheezing, sputum, hemoptysis, pleuritic chest pain Cardiovascular: no chest pain, leg edema, cyanosis, LOVELL, orthopnea Musculoskeletal: Left diabetic heel ulcer. s/p I &D 04/21/19. + dressing C/D/I Gastrointestinal: no nausea, vomiting, hematemesis, diarrhea, constipation, melena, bright red blood in stools, fecal incontinence, jaundice Genitourinary/Reproductive:no frequent urination, no dysuria, hematuria, incontinence Neurogical: no seizures, no headaches, no weakness, no paresthesias, no loss of speech or vision; no memory loss, no vertigo, no tremors, no numbness Psychiatric: stable mood; no excessive anxiety, sadness or moodiness Past History Past Medical History: diabetes (insulin-dependent), ESRD (on HD M/W/), hypertension Past Surgical History: Other (left upper arm AV fistula) Social history: no significant social history Family history: no significant family history Medications and Allergies Allergies Allergy/AdvReac Type Severity Reaction Status Date / Time amlodipine Allergy Itching Verified 04/20/19 11:49 losartan Allergy Itching Verified 04/20/19 11:49 sulfamethoxazole Allergy Rash Verified 04/20/19 11:49 [From Bactrim] trimethoprim [From Bactrim] Allergy Rash Verified 04/20/19 11:49 morphine AdvReac Vomiting Verified 04/20/19 11:49 Home Medications Medication Instructions Recorded Confirmed Last Taken Type Insulin Glargine [Lantus VIAL] 15 unit SUB-Q DAILY 08/02/17 04/20/19 3 Days Ago History ~02/25/18 Torsemide [Demadex] 40 mg PO DAILY 08/02/17 04/20/19 3 Days Ago History ~02/25/18 Metoprolol [Lopressor TAB] 100 mg PO BID 12/01/18 04/20/19 Unknown History Minoxidil [Loniten] 10 mg PO DAILY 12/01/18 04/20/19 Unknown History Zolpidem [Ambien] 5 mg PO QHS PRN tablet 12/05/18 04/20/19 Unknown Rx Insulin Lispro [Humalog 100 7 units SUB-Q TIDAC 04/20/19 04/20/19 Unknown History UNITS/ML Kwikpen] Atropine 1% Ophth Soln 1 drop OS BID 04/21/19 04/21/19 Unknown History Moxifloxacin 0.5% [Vigamox] 1 drop OS 4XD 04/21/19 04/21/19 Unknown History Prednisolone Acet 1% Eye Drop 1 drop OS 4XD 04/21/19 04/21/19 Unknown History Active Meds: Active Medications Acetaminophen (Tylenol) 650 mg PO Q4H PRN PRN Reason: Pain MILD(1-3)/Fever >100.5/CASTILLO Atropine Sulfate (Isopto Atropine) 1 drops OS BID [facility] Last Admin: 04/21/19 23:26 Dose: 1 drops Documented by: Dextrose (D50w (25gm) Syringe) 50 ml IV PRN PRN PRN Reason: Hypoglycemia Docusate Sodium (Colace) 100 mg PO BID [facility] Last Admin: 04/21/19 23:42 Dose: Not Given Documented by: Epoetin Jacoby (Procrit) 10,000 unit IV FRANCOIS PRN PRN Reason: hemodialysis Fentanyl (Sublimaze) 50 mcg IV Q5MIN PRN PRN Reason: Pain , Severe (7-10) Heparin Sodium (Porcine) (Heparin) 5,000 unit SUB-Q Q12HR [facility] Last Admin: 04/21/19 23:24 Dose: 5,000 unit Documented by: Hydralazine HCl (Apresoline) 10 mg IV Q4HR PRN PRN Reason: Blood Pressure Ampicillin Sodium/Sulbactam Sodium (Unasyn/Ns 1.5 Gm/50 Ml) 1.5 gm in 50 mls @ 100 mls/hr IV Q6HR [facility]; Protocol Last Admin: 04/22/19 06:00 Dose: 100 mls/hr Documented by: Sodium Chloride (Nacl 0.9%) 100 mls @ 999 mls/hr IV FRANCOIS PRN PRN Reason: Hypotension Cefepime HCl (Maxipime/Ns 1 Gm/100 Ml) 1 gm in 100 mls @ 200 mls/hr IV QPM [facility]; Protocol Last Admin: 04/21/19 23:45 Dose: Not Given Documented by: Insulin Glargine (Lantus) 15 units SUB-Q QHS [facility] Last Admin: 04/22/19 07:35 Dose: Not Given Documented by: Insulin Human Lispro (Humalog) 0 unit SUB-Q ACHS [facility]; Protocol Last Admin: 04/22/19 08:16 Dose: Not Given Documented by: Metoprolol Tartrate (Lopressor) 100 mg PO BID [facility] Last Admin: 04/21/19 23:47 Dose: Not Given Documented by: Minoxidil (Loniten) 10 mg PO DAILY [facility] Moxifloxacin HCl (Vigamox) 1 drops OS QID [facility] Last Admin: 04/22/19 00:13 Dose: Not Given Documented by: Ondansetron HCl (Zofran) 4 mg IV Q8H PRN PRN Reason: Nausea And Vomiting Last Admin: 04/21/19 09:32 Dose: 4 mg Documented by: Ondansetron HCl (Zofran) 4 mg IV ONCE PRN PRN Reason: Nausea And Vomiting Oxycodone/Acetaminophen (Percocet 5/325) 1 tab PO Q6H PRN PRN Reason: Pain, Moderate (4-6) Last Admin: 04/22/19 05:56 Dose: 1 tab Documented by: Prednisolone Acetate (Pred Forte 1%) 1 drops OS QID [facility] Last Admin: 04/21/19 23:44 Dose: Not Given Documented by: Sodium Chloride (Sodium Chloride Flush Syringe 10 Ml) 10 ml IV BID [facility] Last Admin: 04/21/19 10:55 Dose: 10 ml Documented by: Sodium Chloride (Sodium Chloride Flush Syringe 10 Ml) 10 ml IV PRN PRN PRN Reason: LINE FLUSH Torsemide (Demadex) 40 mg PO DAILY [facility] Zolpidem Tartrate (Ambien) 5 mg PO QHS PRN PRN Reason: Sleep Physical Examination - Physical Exam Narrative exam: Constitutional: Alert. Awake. Left heel pain. Head, Ears, Nose: Normocephalic, atraumatic. External ears, nose normal Eyes: Conjunctivae/corneas clear. No icterus. No ptosis. Neck: Supple, no meningeal signs Oral: dentition fair. No thrush Cardiovascular: S1, S2 normal. Respiratory: Good air entry, clear to auscultation bilaterally GI: Soft, non-tender; bowel sounds normal. No peritoneal signs Musculoskeletal: Left diabetic heel ulcer. s/p I &D 04/21/19. + dressing C/D/I Skin: same as above Hem/Lymphatic: No palpable cervical or supraclavicular nodes. No lymphangitis Psych: Mood ok. Affect normal Neurological: Awake, alert, oriented. - Constitutional Vitals: Vital Signs Temp Pulse Resp BP Pulse Ox 99.1 F 74 17 129/68 95 04/22/19 05:46 04/22/19 05:46 04/22/19 05:56 04/22/19 05:46 04/22/19 05:46 Temperature -Last 24 Hours Temperature 99.1 F Temperature 97.2 F Temperature 98.0 F Temperature 97.5 F Temperature 97.9 F Temperature 97.3 F Results - Labs CBC & Chem 7: 04/22/19 07:44 04/21/19 07:40 Labs: Abnormal lab results 04/21/19 04/22/19 04/22/19 Range/Units 07:40 00:14 06:32 WBC (4.5-11.0) K/mm3 MCV (79-97) fl MCH (28-32) pg RDW (13.2-15.2) % Seg Neuts % (Manual) 77.0 H (40.0-70.0) % Lymphocytes % (Manual) 11.0 L (13.4-35.0) % Monocytes % (Manual) 9.0 H (0.0-7.3) % Seg Neutrophils # Man 9.5 H (1.8-7.7) K/mm3 Monocytes # (Manual) 1.1 H (0.0-0.8) K/mm3 POC Glucose 112 H 133 H (70-105) 04/22/19 04/22/19 Range/Units 07:44 08:21 WBC 11.5 H (4.5-11.0) K/mm3 MCV 73 L (79-97) fl MCH 24 L (28-32) pg RDW 17.5 H (13.2-15.2) % Seg Neuts % (Manual) (40.0-70.0) % Lymphocytes % (Manual) (13.4-35.0) % Monocytes % (Manual) (0.0-7.3) % Seg Neutrophils # Man (1.8-7.7) K/mm3 Monocytes # (Manual) (0.0-0.8) K/mm3 POC Glucose 135 H (70-105) Assessment and Plan Cultures: 04/21/19 Left foot surgical culture; in progress A/P: 54-year-old female with a past medical history of ESRD on HD M//, HTN.Insulin-dependent diabetes who presents to the ED on 04/20/19 with complaints of left foot drainage and pain. She stated that she began experience left foot pain one week ago and drainage since Tuesday. Admitted with: 1. Leukocytosis: on admission. Likely related to left foot diabetic heel ulcer. No fever. Blood cultures not drawn. Currently being treated with Unasyn, C efepime and Vancomycin. 2. Left foot diabetic heel ulcer: Foul smelling, liquified necrosis of the left heel. Left foot xray shows diffuse soft tissue swelling and extensive artherosclerotic vascular calcification. S/P left heel debridement 04/21/19. Surgical cultures are in progress. MRI pending 3. ESRD on HD: //. Antibiotics renally dosed 4. Type 2 diabetes mellitus: recommend tight glycemic control Plan -f/u surgical cultures -f/u MRI to evaluate for Osteomyelitis -Continue Cefepime and Vancomycin -continue wound care [facility] M: [phone] O:[phone]
--- NOTE | 2019-04-22 10:51 | Progress Note ---
Assessment and Plan - Patient Problems (1) Diabetic ulcer of heel Current Visit: Yes Status: Acute Qualifiers: Laterality: left Non-pressure ulcer stage: limited to breakdown of skin Plan to address problem: Pt stable. s/p left heel debridement - 04/21/19 - POD#1. Patient looks much better. Will begin dressing changes with alginate. We'll talk to wound care nurse tomorrow to establish wound care plan. She is nonweightbearing on the left heel. Please call with questions Subjective Date of service: 04/22/19 Patient Reports: Positive: no new complaints, feels better, still having pain (in left heel) Objective Vital Signs - 12hr 04/21/19 04/21/19 04/22/19 23:00 23:47 05:46 Temperature 97.2 F L 99.1 F Pulse Rate 72 61 74 Respiratory 17 20 Rate Blood Pressure 159/84 115/61 129/68 O2 Sat by Pulse 96 95 Oximetry 04/22/19 05:56 Temperature Pulse Rate Respiratory 17 Rate Blood Pressure O2 Sat by Pulse Oximetry - General physical appearance no distress, no pain, other (looks better) - Eyes normal occular movement - Respiratory normal expansion, normal respiratory effort - Integumentary other (left heel dressing dry) - Labs 04/22/19 07:44 04/21/19 07:40 Diabetes panel 04/21/19 Range/Units 19:20 Triglycerides 98 (2-149) mg/dL HDL Cholesterol 57 (40-59) mg/dL
[2019-04-22] MEDS ORDERED: PERCOCET 5/325 PO PRN (11:00)
--- NOTE | 2019-04-22 11:13 | Progress Note ---
Assessment and Plan - Patient Problems (1) ESRD (end stage renal disease) Current Visit: No Status: Chronic Plan to address problem: Will maintain on a Tuesday inpatient hemodialysis schedule. (2) Diabetic ulcer of heel Current Visit: Yes Status: Acute Qualifiers: Laterality: left Non-pressure ulcer stage: with fat layer exposed Plan to address problem: POD 1 debridement of diabetic foot ulcer. (3) Hypertensive chronic kidney disease with stage 5 chronic kidney disease or end stage renal disease Current Visit: No Status: Chronic Plan to address problem: Continue home antihypertensive regimen and we'll monitor closely. (4) Type 2 diabetes mellitus with diabetic chronic kidney disease Current Visit: No Status: Chronic Qualifiers: Chronic kidney disease stage: on chronic dialysis Plan to address problem: Diabetes management per primary attending. Subjective Date of service: 04/22/19 Interval history: s/P debridement of left foot ulcer POD 1. Had HD yesterday post OR. Objective - Vital Signs Vital signs: Vital Signs - 12hr 04/21/19 04/22/19 04/22/19 23:47 05:46 05:56 Temperature 99.1 F Pulse Rate 61 74 Respiratory 20 17 Rate Blood Pressure 115/61 129/68 O2 Sat by Pulse 95 Oximetry - General Appearance General appearance: well-developed, well-nourished, appears stated age EENT: ATNC, PERRL Neck: no JVD, no thyromegaly Respiratory: Present: Clear to Ascultation, Normal Exam Cardiology: regular, S1S2 Gastrointestinal: normal, normoactive bowel sounds Integumentary: no rash, ulcer Neurologic: no focal deficit, alert and oriented x3 Musculoskeletal: other (mild edema ) Psychiatric: mood/affect appropriate, cooperative - Lab 04/22/19 07:44 04/21/19 07:40 Most recent lab results Calcium 8.8 mg/dL (8.4-10.2) 04/21/19 07:40 Phosphorus 3.60 mg/dL (2.5-4.5) 04/20/19 12:09 - Allied health notes Allied health notes reviewed: nursing Medications & Allergies - Medications Allergies/Adverse Reactions: Allergies amlodipine Allergy (Verified 04/20/19 11:49) Itching losartan Allergy (Verified 04/20/19 11:49) Itching sulfamethoxazole [From Bactrim] Allergy (Verified 04/20/19 11:49) Rash trimethoprim [From Bactrim] Allergy (Verified 04/20/19 11:49) Rash morphine Adverse Reaction (Verified 04/20/19 11:49) Vomiting Home Medications: Home Medications Medication Instructions Recorded Confirmed Last Taken Type Insulin Glargine [Lantus VIAL] 15 unit SUB-Q DAILY 08/02/17 04/20/19 3 Days Ago History ~02/25/18 Torsemide [Demadex] 40 mg PO DAILY 08/02/17 04/20/19 3 Days Ago History ~02/25/18 Metoprolol [Lopressor TAB] 100 mg PO BID 12/01/18 04/20/19 Unknown History Minoxidil [Loniten] 10 mg PO DAILY 12/01/18 04/20/19 Unknown History Zolpidem [Ambien] 5 mg PO QHS PRN tablet 12/05/18 04/20/19 Unknown Rx Insulin Lispro [Humalog 100 7 units SUB-Q TIDAC 04/20/19 04/20/19 Unknown H istory UNITS/ML Kwikpen] Atropine 1% Ophth Soln 1 drop OS BID 04/21/19 04/21/19 Unknown History Moxifloxacin 0.5% [Vigamox] 1 drop OS 4XD 04/21/19 04/21/19 Unknown History Prednisolone Acet 1% Eye Drop 1 drop OS 4XD 04/21/19 04/21/19 Unknown History Active Medications: Generic Name Dose Route Start Last Admin Trade Name Freq PRN Reason Stop Dose Admin Acetaminophen 650 mg 04/20/19 19:38 Tylenol PO Q4H PRN Pain MILD(1-3)/Fever >100.5/CASTILLO Atropine Sulfate 1 drops 04/21/19 10:00 04/21/19 23:26 Isopto Atropine OS 1 drops BID [facility] Administration Dextrose 50 ml 04/20/19 19:38 D50w (25gm) Syringe IV PRN PRN Hypoglycemia Docusate Sodium 100 mg 04/20/19 22:00 04/21/19 23:42 Colace PO Not Given BID [facility] Epoetin Jacoby 10,000 unit 04/21/19 11:51 Procrit IV FRANCOIS PRN hemodialysis Fentanyl 50 mcg 04/21/19 15:45 Sublimaze IV Q5MIN PRN Pain , Severe (7-10) Heparin Sodium (Porcine) 5,000 unit 04/20/19 22:00 04/21/19 23:24 Heparin SUB-Q 5,000 unit Q12HR [facility] Administration Hydralazine HCl 10 mg 04/20/19 20:06 Apresoline IV Q4HR PRN Blood Pressure Sodium Chloride 100 mls @ 999 mls/hr 04/21/19 11:51 Nacl 0.9% IV FRANCOIS PRN Hypotension Cefepime HCl 1 gm in 100 mls @ 200 mls/hr 04/21/19 18:00 04/21/19 23:45 Maxipime/Ns 1 Gm/100 Ml IV Not Given QPM [facility] Protocol Insulin Glargine 15 units 04/20/19 22:00 04/22/19 07:35 Lantus SUB-Q Not Given QHS [facility] Insulin Human Lispro 0 unit 04/20/19 22:00 04/22/19 08:16 Humalog SUB-Q Not Given ACHS [facility] Protocol Metoprolol Tartrate 100 mg 04/20/19 22:00 04/21/19 23:47 Lopressor PO Not Given BID [facility] Minoxidil 10 mg 04/21/19 10:00 Loniten PO DAILY [facility] Moxifloxacin HCl 1 drops 04/21/19 10:00 04/22/19 00:13 Vigamox OS Not Given QID [facility] Ondansetron HCl 4 mg 04/20/19 19:38 04/21/19 09:32 Zofran IV 4 mg Q8H PRN Administration Nausea And Vomiting Ondansetron HCl 4 mg 04/21/19 15:45 Zofran IV ONCE PRN Nausea And Vomiting Oxycodone/Acetaminophen 1 tab 04/22/19 11:00 Percocet 5/325 PO Q4H PRN Pain, Moderate (4-6) Prednisolone Acetate 1 drops 04/21/19 10:00 04/21/19 23:44 Pred Forte 1% OS Not Given QID [facility] Sodium Chloride 10 ml 04/20/19 22:00 04/21/19 10:55 Sodium Chloride Flush Syringe 10 Ml IV 10 ml BID [facility] Administration Sodium Chloride 10 ml 04/20/19 19:38 Sodium Chloride Flush Syringe 10 Ml IV PRN PRN LINE FLUSH Torsemide 40 mg 04/21/19 10:00 Demadex PO DAILY [facility] Zolpidem Tartrate 5 mg 04/20/19 19:36 Ambien PO QHS PRN Sleep
[2019-04-22] MEDS: LOPRESSOR PO SCH ×2 (11:40→22:08)
[2019-04-22] MEDS: COLACE PO SCH ×2 (11:42→22:08)
[2019-04-22] MEDS: LONITEN PO SCH (11:44)
[2019-04-22] MEDS: PRED FORTE 1% OS SCH ×4 (11:47→22:05)
[2019-04-22] MEDS: ISOPTO ATROPINE OS SCH ×2 (11:53→22:05)
[2019-04-22] MEDS: DEMADEX PO SCH (11:58)
[2019-04-22] MEDS: HEPARIN SUB-Q SCH ×2 (11:59→22:07)
[2019-04-22] MEDS: SODIUM CHLORIDE FLUSH SYRINGE 10 ML IV SCH ×3 (12:02→22:07)
[2019-04-22] MEDS: DILAUDID IV PRN ×2 (15:04→20:52)
--- NOTE | 2019-04-22 15:19 | Progress Note ---
Assessment and Plan Assessment and plan: 54-year-old female with history of ESRD on HD M/W/F, HTN, insulin-dependent diabetes who presents to [facility] ED with complaints of left foot drainage and pain for the past week. Patient is afebrile with leukocytosis at 15.1. Foot x-ray showed diffuse soft tissue swelling with extensive atherosclerotic vascular calcification. On examination there is necrotic tissue to left heel, with moist wound base. Left heel ulcer. To r/o Osteomyelitis- Hypertensive urgency Insulin-dependent diabetes mellitus ESRD on HD M/W/F Leukocytosis Hyponatremia Plan: Continue supportive care Continue Cefepime as per ID MRI left foot ordered, pending Started IV Unasyn and vancomycin Infectious disease consult pending Wound care consult pending NPO Gen Surg (Dr. Raza) following s/p debridement left heel 04/[address] Raza Monitor electrolytes POC BG monitoring Lantus 15 units daily at bedtime, sliding scale coverage Monitor BP Resumed home antihypertensive med: Metoprolol 100 mg twice a day, minoxidil 10 mg daily, torsemide 40 mg daily IV hydralazine when necessary DVT PPX on heparin History Interval history: Left heel ulcer with drainage for 1 week s/p debridement yesterday. Complaining of pain left foot surgical site Hospitalist Physical - Physical exam Narrative exam: Gen: Not in acute distress, lying in bed, HEENT: Normocephalic, atraumatic Neck: supple, no JVD Heart: S1 and S2 reg, no murmurs, rubs or gallop Lungs: Clear, no crackles, no wheeze Abd: soft, non tender, non distended, normal BS Ext: Left heel ulcer, covered with dressing, no cyanosis, Neuro: Awake,alert, oriented x 3, moves all ext, non focal Psych:Normal mood - Constitutional Vitals: Temp Pulse Resp BP Pulse Ox 98.9 F 71 20 120/58 92 04/22/19 12:59 04/22/19 12:59 04/22/19 12:59 04/22/19 12:59 04/22/19 12:59 Results - Labs CBC & Chem 7: 04/22/19 07:44 04/21/19 07:40 Labs: Laboratory Last Values WBC 11.5 K/mm3 (4.5-11.0) H 04/22/19 07:44 RBC 4.28 M/mm3 (3.65-5.03) 04/22/19 07:44 Hgb 10.3 gm/dl (10.1-14.3) 04/22/19 07:44 Hct 31.2 % (30.3-42.9) 04/22/19 07:44 MCV 73 fl (79-97) L 04/22/19 07:44 MCH 24 pg (28-32) L 04/22/19 07:44 MCHC 33 % (30-34) 04/22/19 07:44 RDW 17.5 % (13.2-15.2) H 04/22/19 07:44 Plt Count 262 K/mm3 (140-440) 04/22/19 07:44 Crosby % (Auto) 9.2 % (0.0-7.3) H 04/21/19 07:40 Eos % (Auto) 2.8 % (0.0-4.3) 04/21/19 07:40 Crosby # 1.1 K/mm3 (0.0-0.8) H 04/21/19 07:40 Eos # 0.3 K/mm3 (0.0-0.4) 04/21/19 07:40 Baso # 0.1 K/mm3 (0.0-0.1) 04/21/19 07:40 Add Manual Diff Complete 04/21/19 07:40 Total Counted 100 04/21/19 07:40 Seg Neutrophils % 76.7 % (40.0-70.0) H 04/21/19 07:40 Seg Neuts % (Manual) 77.0 % (40.0-70.0) H 04/21/19 07:40 0 % 04/21/19 07:40 11.0 % (13.4-35.0) L 04/21/19 07:40 Reactive Lymphs % (Man) 0 % 04/21/19 07:40 9.0 % (0.0-7.3) H 04/21/19 07:40 3.0 % (0.0-4.3) 04/21/19 07:40 0 % (0.0-1.8) 04/21/19 07:40 0 % 04/21/19 07:40 0 % 04/21/19 07:40 0 % 06/22/19 07:40 0 % 04/21/19 07:40 Nucleated RBC % Not Reportable 04/21/19 07:40 Seg Neutrophils # 8.9 K/mm3 (1.8-7.7) H 04/21/19 07:40 Seg Neutrophils # Man 9.5 K/mm3 (1.8-7.7) H 04/21/19 07:40 Band Neutrophils # 0.0 K/mm3 04/21/19 07:40 1.4 K/mm3 (1.2-5.4) 04/21/19 07:40 Abs React Lymphs (Man) 0.0 K/mm3 04/21/19 07:40 1.1 K/mm3 (0.0-0.8) H 04/21/19 07:40 0.4 K/mm3 (0.0-0.4) 04/21/19 07:40 0.0 K/mm3 (0.0-0.1) 04/21/19 07:40 0.0 K/mm3 04/21/19 07:40 0.0 K/mm3 04/21/19 07:40 0.0 K/mm3 04/21/19 07:40 Blast Cells # 0.0 K/mm3 04/21/19 07:40 WBC Morphology Not Reportable 04/21/19 07:40 Hypersegmented Neuts Not Reportable 04/21/19 07:40 Hyposegmented Neuts Not Reportable 04/21/19 07:40 Hypogranular Neuts Not Reportable 04/21/19 07:40 Not Reportable 04/21/19 07:40 Not Reportable 04/21/19 07:40 Not Reportable 04/21/19 07:40 Not Reportable 04/21/19 07:40 Not Reportable 04/21/19 07:40 Not Reportable 04/21/19 07:40 Consistent w auto 04/21/19 07:40 Not Reportable 04/21/19 07:40 Plt Clumps, EDTA Not Reportable 04/21/19 07:40 Not Reportable 04/21/19 07:40 Not Reportable 04/21/19 07:40 Not Reportable 04/21/19 07:40 Plt Morphology Comment Not Reportable 04/21/19 07:40 RBC Morphology Not Reportable 04/21/19 07:40 Dimorphic RBCs Not Reportable 04/21/19 07:40 Few 04/21/19 07:40 1+ 04/21/19 07:40 Not Reportable 04/21/19 07:40 Not Reportable 04/21/19 07:40 Not Reportable 04/21/19 07:40 Not Reportable 04/21/19 07:40 Not Reportable 04/21/19 07:40 Not Reportable 04/21/19 07:40 Not Reportable 04/21/19 07:40 2+ 04/21/19 07:40 Not Reportable 04/21/19 07:40 Not Reportable 04/21/19 07:40 Not Reportable 04/21/19 07:40 Not Reportable 04/21/19 07:40 Not Reportable 04/21/19 07:40 Not Reportable 04/21/19 07:40 Not Reportable 04/21/19 07:40 Not Reportable 04/21/19 07:40 Not Reportable 04/21/19 07:40 Acanthocytes (Spur) Not Reportable 04/21/19 07:40 Rouleaux Not Reportable 04/21/19 07:40 Not Reportable 04/21/19 07:40 Not Reportable 04/21/19 07:40 Not Reportable 04/21/19 07:40 Not Reportable 04/21/19 07:40 Hem Pathologist Commnt No 04/21/19 07:40 Sodium 138 mmol/L (137-145) 04/21/19 07:40 Potassium 4.2 mmol/L (3.6-5.0) 04/21/19 07:40 Chloride 92.0 mmol/L (98-107) L 04/21/19 07:40 Carbon Dioxide 28 mmol/L (22-30) 04/21/19 07:40 22 mmol/L 04/21/19 07:40 BUN 39 mg/dL (7-17) H 04/21/19 07:40 5.8 mg/dL (0.7-1.2) H 04/21/19 07:40 Estimated GFR 9 ml/min 04/21/19 07:40 7 % 04/21/19 07:40 Glucose 87 mg/dL (65-100) 04/21/19 07:40 POC Glucose 212 (70-105) H 04/22/19 11:39 Calcium 8.8 mg/dL (8.4-10.2) 04/21/19 07:40 Phosphorus 3.60 mg/dL (2.5-4.5) 04/20/19 12:09 0.90 mg/dL (0.1-1.2) 04/20/19 12:09 AST 34 units/L (5-40) 04/20/19 12:09 ALT 22 units/L (7-56) 04/20/19 12:09 561 units/L (35-129) H 04/20/19 12:09 NT-Pro-B Natriuret Pep 32448 pg/mL (0-900) H 04/20/19 12:09 8.4 g/dL (6.3-8.2) H 04/20/19 12:09 3.5 g/dL (3.9-5) L 04/20/19 12:09 0.7 % 04/20/19 12:09 Triglycerides 98 mg/dL (2-149) 04/21/19 19:20 Cholesterol 146 mg/dL (50-199) 04/21/19 19:20 78 mg/dL (50-130) 04/21/19 19:20 57 mg/dL (40-59) 04/21/19 19:20 2.56 % 04/21/19 19:20 Vancomycin Trough 11.4 ug/mL (5.0-20.0) 04/21/19 19:20 Active Medications - Current Medications Current Medications: Generic Name Dose Route Start Last Admin Trade Name Gus PRN Reason Stop Dose Admin Acetaminophen 650 mg 04/20/19 19:38 Tylenol PO Q4H PRN Pain MILD(1-3)/Fever >100.5/CASTILLO Atropine Sulfate 1 drops 04/21/19 10:00 04/22/19 11:53 Isopto Atropine OS 1 drops BID FATMATA Administration Dextrose 50 ml 04/20/19 19:38 D50w (25gm) Syringe IV PRN PRN Hypoglycemia Docusate Sodium 100 mg 04/20/19 22:00 04/22/19 11:42 Colace PO 100 mg BID FATMATA Administration Epoetin Jacoby 10,000 unit 04/21/19 11:51 Procrit IV FRANCOIS PRN hemodialysis Fentanyl 50 mcg 04/21/19 15:45 Sublimaze IV Q5MIN PRN Pain , Severe (7-10) Heparin Sodium (Porcine) 5,000 unit 04/20/19 22:00 04/22/19 11:59 Heparin SUB-Q 5,000 unit Q12HR FATMATA Administration Hydralazine HCl 10 mg 04/20/19 20:06 Apresoline IV Q4HR PRN Blood Pressure Hydromorphone HCl 0.5 mg 04/22/19 14:42 04/22/19 15:04 Dilaudid IV 0.5 mg Q4H PRN Administration Pain , Severe (7-10) Sodium Chloride 100 mls @ 999 mls/hr 04/21/19 11:51 Nacl 0.9% IV FRANCOIS PRN Hypotension Cefepime HCl 1 gm in 100 mls @ 200 mls/hr 04/21/19 18:00 04/21/19 23:45 Maxipime/Ns 1 Gm/100 Ml IV Not Given QPM [facility] Protocol Insulin Glargine 15 units 04/20/19 22:00 04/22/19 07:35 Lantus SUB-Q Not Given QHS [facility] Insulin Human Lispro 0 unit 04/20/19 22:00 04/22/19 13:01 Humalog SUB-Q 3 unit ACHS [facility] Administration Protocol Metoprolol Tartrate 100 mg 04/20/19 22:00 04/22/19 11:40 Lopressor PO 100 mg BID [facility] Administration Minoxidil 10 mg 04/21/19 10:00 04/22/19 11:44 Loniten PO 10 mg DAILY [facility] Administration Moxifloxacin HCl 1 drops 04/21/19 10:00 04/22/19 15:12 Vigamox OS 1 drops QID FATMATA Administration Ondansetron HCl 4 mg 04/20/19 19:38 04/21/19 09:32 Zofran IV 4 mg Q8H PRN Administration Nausea And Vomiting Ondansetron HCl 4 mg 04/21/19 15:45 Zofran IV ONCE PRN Nausea And Vomiting Prednisolone Acetate 1 drops 04/21/19 10:00 04/22/19 15:10 Pred Forte 1% OS 1 drops QID FATMATA Administration Sodium Chloride 10 ml 04/20/19 22:00 04/22/19 12:02 Sodium Chloride Flush Syringe 10 Ml IV 10 ml BID FATMATA Administration Sodium Chloride 10 ml 04/20/19 19:38 Sodium Chloride Flush Syringe 10 Ml IV PRN PRN LINE FLUSH Torsemide 40 mg 04/21/19 10:00 04/22/19 11:58 Demadex PO 40 mg DAILY FATMATA Administration Zolpidem Tartrate 5 mg 04/20/19 19:36 Ambien PO QHS PRN Sleep Nutrition/Malnutrition Assess - Dietary Evaluation Nutrition/Malnutrition Findings: Nutrition Notes Start: 04/21/19 12:55 Freq: Status: Active Protocol: Document 04/21/19 12:55 LP (Rec: 04/21/19 13:00 LP [id number]) Nutrition Notes Need for Assessment generated from: credit control administrator Initial or Follow up Assessment Current Diagnosis CKD (stage V CKD),Diabetes, Hypertension Other Pertinent Diagnosis on HD Current Diet NPO Labs/Tests BG 338 NA 133 BUN 34 Cr 5 Pertinent Medications Reviewed Height 5 ft 7 in Weight 83 kg [place] Body Weight (kg) 61.36 BMI 28.6 Weight change and time frame 8.7% since October UBW 200lbs Subjective/Other Information Screen for MST. Pt states not eating well [employer] and it started yesterday. Pt vomited green emesis at time of visit. Pt getting Zofran. Pt states she will have extra protein and Sajan once diet advanced. Burn Absent Trauma Absent #1 Nutrition Diagnosis Inadequate oral intake Etiology N/V As Evidenced by Signs and Symptoms Pt started vomiting yesterday and this morning. Is patient on ventilator? No Is Patient Ambulatory and/or Out of Bed Yes REE-([facility]-ambulatory/OOB) [ 1894.919 [id number]] Calculation Used for Recommendations [facility] Additional Notes Protein needs are 100-116g (1. 2-1.4g/kg) Fluid needs are 1ml/kcal Nutrition Intervention Change Diet Order: Advance as tolerated Add Supplement/Snack (indicate name/kcal Sajan BID and double protein /protein ) once diet advanced Goal #1 Advance diet as tolerated Anticipated Discharge Needs: Unable to determine at this time Follow-Up By: 04/24/19 Additional Comments Follow for diet advancement/ intakes
[2019-04-22] MEDS ORDERED: VANCOMYCIN/NS 1 GM/250 ML 1 GM/250 ML BAG IV ONE (17:00)
[2019-04-22] MEDS: MAXIPIME/NS 1 GM/100 ML 1 GM/100 ML BAG IV SCH (18:23)
[2019-04-22] MEDS: ZOFRAN IV PRN (18:25)
[2019-04-23] MEDS: DILAUDID IV PRN ×4 (01:23→20:08)
[2019-04-23] MEDS: ZOFRAN IV PRN ×3 (04:25→22:00)
[2019-04-23] MEDS: HumaLOG SUB-Q SCH ×5 (07:45→22:08)
[2019-04-23] MEDS ORDERED: ZOFRAN IV ONE (08:30)
[2019-04-23 08:51] LABS: Calcium 8.5 mg/dL (8.4-10.2)
[2019-04-23 09:02] LABS: Hematocrit 32.3 % (30.3-42.9); Hemoglobin 10.4 gm/dl (10.1-14.3); Mean Corpuscular HGB Conc 32 % (30-34); Mean Corpuscular Volume 73 fl (79-97); Platelet Count 299 K/mm3 (140-440); Red Blood Count 4.43 M/mm3 (3.65-5.03)
[2019-04-23] MEDS: DEMADEX PO SCH ×2 (09:14→09:15)
[2019-04-23] MEDS: COLACE PO SCH ×3 (09:15→22:08)
[2019-04-23] MEDS: LOPRESSOR PO SCH ×2 (09:16→22:09)
[2019-04-23] MEDS: HEPARIN SUB-Q SCH ×2 (09:17→21:59)
[2019-04-23] MEDS: ISOPTO ATROPINE OS SCH ×2 (09:17→21:59)
[2019-04-23] MEDS: VIGAMOX OS SCH ×4 (09:18→21:59)
[2019-04-23] MEDS: PRED FORTE 1% OS SCH ×4 (09:22→21:59)
[2019-04-23] MEDS: LONITEN PO SCH (09:24)
--- NOTE | 2019-04-23 09:53 | Progress Note ---
Assessment and Plan - Patient Problems (1) ESRD (end stage renal disease) Current Visit: No Status: Chronic Plan to address problem: Will maintain on a Tuesday inpatient hemodialysis schedule. (2) Diabetic ulcer of heel Current Visit: Yes Status: Acute Qualifiers: Laterality: left Non-pressure ulcer stage: limited to breakdown of skin Plan to address problem: POD 2 debridement of diabetic foot ulcer. (3) Hypertensive chronic kidney disease with stage 5 chronic kidney disease or end stage renal disease Current Visit: No Status: Chronic Plan to address problem: Continue home antihypertensive regimen and we'll monitor closely. (4) Type 2 diabetes mellitus with diabetic chronic kidney disease Current Visit: No Status: Chronic Qualifiers: Chronic kidney disease stage: on chronic dialysis Plan to address problem: Diabetes management per primary attending. Subjective Date of service: 04/23/19 Interval history: No acute issues, complaining of nausea this am. Objective - Vital Signs Vital signs: Vital Signs - 12hr 04/22/19 04/22/19 04/22/19 21:53 22:00 23:00 Temperature 98.8 F Pulse Rate 71 Respiratory 20 Rate Respiratory 17 Rate [Leg] Blood Pressure 114/54 O2 Sat by Pulse 99 96 Oximetry 04/23/19 04/23/19 04/23/19 01:23 05:41 09:16 Temperature 97.8 F Pulse Rate 73 78 Respiratory 17 20 Rate Respiratory Rate [Leg] Blood Pressure 157/80 O2 Sat by Pulse 99 Oximetry - General Appearance General appearance: well-developed, well-nourished, appears stated age EENT: ATNC, PERRL Neck: no JVD, no thyromegaly Respiratory: Present: Clear to Ascultation, Normal Exam Cardiology: regular, S1S2 Gastrointestinal: normal, normoactive bowel sounds Integumentary: warm and dry, ulcer Neurologic: no focal deficit, no asterixis, alert and oriented x3 Musculoskeletal: other (+edema ) Psychiatric: mood/affect appropriate, cooperative - Lab 04/23/19 07:23 04/23/19 07:23 Most recent lab results Calcium 8.5 mg/dL (8.4-10.2) 04/23/19 07:23 Phosphorus 3.60 mg/dL (2.5-4.5) 04/20/19 12:09 - Allied health notes Allied health notes reviewed: nursing Medications & Allergies - Medications Allergies/Adverse Reactions: Allergies amlodipine Allergy (Verified 04/20/19 11:49) Itching losartan Allergy (Verified 04/20/19 11:49) Itching sulfamethoxazole [From Bactrim] Allergy (Verified 04/20/19 11:49) Rash trimethoprim [From Bactrim] Allergy (Verified 04/20/19 11:49) Rash morphine Adverse Reaction (Verified 04/20/19 11:49) Vomiting Home Medications: Home Medications Medication Instructions Recorded Confirmed Last Taken Type Insulin Glargine [Lantus VIAL] 15 unit SUB-Q DAILY 08/02/17 04/20/19 3 Days Ago History ~02/25/18 Torsemide [Demadex] 40 mg PO DAILY 08/02/17 04/20/19 3 Days Ago History ~02/25/18 Metoprolol [Lopressor TAB] 100 mg PO BID 12/01/18 04/20/19 Unknown History Minoxidil [Loniten] 10 mg PO DAILY 12/01/18 04/20/19 Unknown History Zolpidem [Ambien] 5 mg PO QHS PRN tablet 12/05/18 04/20/19 Unknown Rx Insulin Lispro [Humalog 100 7 units SUB-Q TIDAC 04/20/19 04/20/19 Unknown History UNITS/ML Kwikpen] Atropine 1% Ophth Soln 1 drop OS BID 04/21/19 04/21/19 Unknown History Moxifloxacin 0.5% [Vigamox] 1 drop OS 4XD 04/21/19 04/21/19 Unknown History Prednisolone Acet 1% Eye Drop 1 drop OS 4XD 04/21/19 04/21/19 Unknown History Active Medications: Generic Name Dose Route Start Last Admin Trade Name Freq PRN Reason Stop Dose Admin Acetaminophen 650 mg 04/20/19 19:38 Tylenol PO Q4H PRN Pain MILD(1-3)/Fever >100.5/CASTILLO Atropine Sulfate 1 drops 04/21/19 10:00 04/23/19 09:17 Isopto Atropine OS 1 drops BID FATMATA Administration Dextrose 50 ml 04/20/19 19:38 D50w (25gm) Syringe IV PRN PRN Hypoglycemia Docusate Sodium 100 mg 04/20/19 22:00 04/23/19 09:16 Colace PO 100 mg BID FATMATA Administration Epoetin Jacoby 10,000 unit 04/21/19 11:51 Procrit IV FRANCOIS PRN hemodialysis Fentanyl 50 mcg 04/21/19 15:45 Sublimaze IV Q5MIN PRN Pain , Severe (7-10) Heparin Sodium (Porcine) 5,000 unit 04/20/19 22:00 04/23/19 09:17 Heparin SUB-Q 5,000 unit Q12HR FATMATA Administration Hydralazine HCl 10 mg 04/20/19 20:06 Apresoline IV Q4HR PRN Blood Pressure Hydromorphone HCl 0.5 mg 04/22/19 14:42 04/23/19 08:00 Dilaudid IV 0.5 mg Q4H PRN Administration Pain , Severe (7-10) Sodium Chloride 100 mls @ 999 mls/hr 04/21/19 11:51 Nacl 0.9% IV FRANCOIS PRN Hypotension Cefepime HCl 1 gm in 100 mls @ 200 mls/hr 04/21/19 18:00 04/22/19 18:23 Maxipime/Ns 1 Gm/100 Ml IV 200 mls/hr QPM [facility] Administration Protocol Insulin Glargine 15 units 04/20/19 22:00 04/22/19 23:16 Lantus SUB-Q 15 units QHS FATMATA Administration Insulin Human Lispro 0 unit 04/20/19 22:00 04/23/19 09:19 Humalog SUB-Q Not Given ACHS [facility] Protocol Metoprolol Tartrate 100 mg 04/20/19 22:00 04/23/19 09:16 Lopressor PO 100 mg BID FATMATA Administration Minoxidil 10 mg 04/21/19 10:00 04/23/19 09:24 Loniten PO 10 mg DAILY FATMATA Administration Moxifloxacin HCl 1 drops 04/21/19 10:00 04/23/19 09:18 Vigamox OS 1 drops QID FATMATA Administration Ondansetron HCl 4 mg 04/20/19 19:38 04/23/19 04:25 Zofran IV 4 mg Q8H PRN Administration Nausea And Vomiting Ondansetron HCl 4 mg 04/21/19 15:45 Zofran IV ONCE PRN Nausea And Vomiting Prednisolone Acetate 1 drops 04/21/19 10:00 04/23/19 09:22 Pred Forte 1% OS 1 drops QID FATMATA Administration Sodium Chloride 10 ml 04/20/19 22:00 04/22/19 22:07 Sodium Chloride Flush Syringe 10 Ml IV 10 ml BID FATMATA Administration Sodium Chloride 10 ml 04/20/19 19:38 Sodium Chloride Flush Syringe 10 Ml IV PRN PRN LINE FLUSH Torsemide 40 mg 04/21/19 10:00 04/23/19 09:15 Demadex PO 40 mg DAILY FATMATA Administration Zolpidem Tartrate 5 mg 04/20/19 19:36 Ambien PO QHS PRN Sleep
--- NOTE | 2019-04-23 10:16 | Progress Note ---
Assessment and Plan Cultures: 04/21/19 Left foot surgical culture; in progress A/P: 54-year-old female with a past medical history of ESRD on HD M/W/F, HTN.Insulin-dependent diabetes who presents to the ED on 04/20/19 with complaints of left foot drainage and pain. She stated that she began experience left foot pain one week ago and drainage since Tuesday. Admitted with: 1. Leukocytosis: Improved. Likely related to left foot diabetic heel ulcer. No fever. Blood cultures not drawn. Currently being treated , Cefepime and Vancomycin. 2. Left foot diabetic heel ulcer: Foul smelling, liquified necrosis of the left heel. Left foot xray shows diffuse soft tissue swelling and extensive artherosclerotic vascular calcification. S/P left heel debridement 04/21/19. Surgical cultures are in progress. MRI pending. Arterial US ordered 3. ESRD on HD: //. Antibiotics renally dosed 4. Type 2 diabetes mellitus: recommend tight glycemic control Plan -Continue Cefepime 1 gm IV qpm, D3 -Continue Vancomycin PK consult, D2 -f/u surgical cultures -f/u MRI to evaluate for Osteomyelitis - Arterial US breonna Rogers NP [facility] M: [phone] O:[phone] Subjective Date of service: 04/23/19 Interval history: Patient seen and examined. Complains of left foot pain. No fevers or SOB. Objective - Exam Narrative Exam: Constitutional: Alert. Awake. Continued left heel pain Head, Ears, Nose: Normocephalic, atraumatic. External ears, nose normal Eyes: Conjunctivae/corneas clear. No icterus. No ptosis. Neck: Supple, no meningeal signs Oral: dentition fair. No thrush Cardiovascular: S1, S2 normal. Respiratory: Good air entry, clear to auscultation bilaterally GI: Soft, non-tender; bowel sounds normal. No peritoneal signs Musculoskeletal: Left diabetic heel ulcer. s/p I &D 04/21/19. + dressing C/D/I Skin: same as above Hem/Lymphatic: No palpable cervical or supraclavicular nodes. No lymphangitis Psych: Mood ok. Affect normal Neurological: Awake, alert, oriented. - Constitutional Vitals: Vital Signs Temp Pulse Resp BP Pulse Ox 97.8 F 78 20 157/80 99 04/23/19 05:41 04/23/19 09:16 04/23/19 05:41 04/23/19 05:41 04/23/19 05:41 Temperature -Last 24 Hours Temperature 97.8 F Temperature 98.8 F Temperature 98.1 F Temperature 98.9 F - Labs CBC & Chem 7: 04/23/19 07:23 04/23/19 07:23 Labs: Abnormal lab results 04/22/19 04/22/19 04/22/19 Range/Units 11:39 16:21 22:47 WBC (4.5-11.0) K/mm3 MCV (79-97) fl MCH (28-32) pg RDW (13.2-15.2) % Chloride (98-107) mmol/L BUN (7-17) mg/dL Creatinine (0.7-1.2) mg/dL POC Glucose 212 H 199 H 225 H (70-105) 04/23/19 04/23/19 Range/Units 07:23 07:23 WBC 11.7 H (4.5-11.0) K/mm3 MCV 73 L (79-97) fl MCH 24 L (28-32) pg RDW 18.0 H (13.2-15.2) % Chloride 91.5 L (98-107) mmol/L BUN 37 H (7-17) mg/dL Creatinine 6.0 H (0.7-1.2) mg/dL POC Glucose (70-105)
--- NOTE | 2019-04-23 13:22 | Progress Note ---
Assessment and Plan - Patient Problems (1) Sepsis Current Visit: Yes Status: Acute Plan to address problem: Sepsis secondary to diabetic foot wound. Currently on Unasyn and vancomycin. Patient improving status post debridement. Has MRI pending to rule out osteomyelitis. Discharge after MRI per further ID recommendations. (2) Diabetic ulcer of heel Current Visit: Yes Status: Acute Qualifiers: Laterality: left Non-pressure ulcer stage: limited to breakdown of skin Plan to address problem: Diabetic foot wound. I would being treated IV antibiotics. ID following. (3) Hyperglycemia Current Visit: Yes Status: Acute Plan to address problem: Diabetes patient currently on Lantus 15 units sliding scale insulin has done well. Accu-Cheks 97 to 1:30 at this time. (4) ESRD (end stage renal disease) Current Visit: No Status: Chronic Plan to address problem: End-stage renal disease continue hemodialysis Tuesday and Fridays. Patient tolerated procedures well. (5) HTN (hypertension) Current Visit: No Status: Chronic Qualifiers: Plan to address problem: Hypertensive urgency improved after hemodialysis. Patient on metoprolol and hydralazine when necessary. History Interval history: 54-year-old and stage renal disease left foot pain secondary to he'll also presents status post debridement. Currently ruling out osteo-with MRI. MRI is pending. Patient's pain will control comfortable. Hospitalist Physical - Constitutional Vitals: Temp Pulse Resp BP Pulse Ox 97.8 F 78 20 157/80 99 04/23/19 05:41 04/23/19 09:16 04/23/19 05:41 04/23/19 05:41 04/23/19 05:41 General appearance: Present: no acute distress - EENT Eyes: Present: PERRL, EOM intact ENT: hearing intact, clear oral mucosa, dentition normal, no oropharyngeal erythema, no poor dentition, no thrush, no ulcerations - Neck Neck: Present: supple, normal ROM. Absent: rigidity, enlarged thyroid, masses or JVD, cervical LAD - Respiratory Respiratory: bilateral: CTA - Cardiovascular Rhythm: regular Heart Sounds: Present: S1 & S2 - Extremities Extremities: no ischemia, pulses intact, pulses symmetrical, No edema, normal temperature, normal color Extremity abnormal: other (heel ulcer status post debridement. Minimal serosanguineous drainage.) - Abdominal General gastrointestinal: soft, non-tender, non-distended, normal bowel sounds, no distended, no rigid, no hepatomegaly, no splenomegaly - Integumentary Integumentary: Present: clear, warm, dry - Psychiatric Psychiatric: appropriate mood/affect, intact judgment & insight, memory intact - Neurologic Neurologic: CNII-XII intact, no focal deficits, moves all extremities Results - Labs CBC & Chem 7: 04/23/19 07:23 04/23/19 07:23 Labs: Laboratory Last Values WBC 11.7 K/mm3 (4.5-11.0) H 04/23/19 07:23 RBC 4.43 M/mm3 (3.65-5.03) 04/23/19 07:23 Hgb 10.4 gm/dl (10.1-14.3) 04/23/19 07:23 Hct 32.3 % (30.3-42.9) 04/23/19 07:23 MCV 73 fl (79-97) L 04/23/19 07:23 MCH 24 pg (28-32) L 04/23/19 07:23 MCHC 32 % (30-34) 04/23/19 07:23 RDW 18.0 % (13.2-15.2) H 04/23/19 07:23 Plt Count 299 K/mm3 (140-440) 04/23/19 07:23 Grand % (Auto) 9.2 % (0.0-7.3) H 04/21/19 07:40 Eos % (Auto) 2.8 % (0.0-4.3) 04/21/19 07:40 Grand # 1.1 K/mm3 (0.0-0.8) H 04/21/19 07:40 Eos # 0.3 K/mm3 (0.0-0.4) 04/21/19 07:40 Baso # 0.1 K/mm3 (0.0-0.1) 04/21/19 07:40 Add Manual Diff Complete 04/21/19 07:40 Total Counted 100 04/21/19 07:40 Seg Neutrophils % 76.7 % (40.0-70.0) H 04/21/19 07:40 Seg Neuts % (Manual) 77.0 % (40.0-70.0) H 04/21/19 07:40 0 % 04/21/19 07:40 11.0 % (13.4-35.0) L 04/21/19 07:40 Reactive Lymphs % (Man) 0 % 04/21/19 07:40 9.0 % (0.0-7.3) H 04/21/19 07:40 3.0 % (0.0-4.3) 04/21/19 07:40 0 % (0.0-1.8) 04/21/19 07:40 0 % 04/21/19 07:40 0 % 04/21/19 07:40 0 % 04/21/19 07:40 0 % 04/21/19 07:40 Nucleated RBC % Not Reportable 04/21/19 07:40 Seg Neutrophils # 8.9 K/mm3 (1.8-7.7) H 04/21/19 07:40 Seg Neutrophils # Man 9.5 K/mm3 (1.8-7.7) H 04/21/19 07:40 Band Neutrophils # 0.0 K/mm3 04/21/19 07:40 1.4 K/mm3 (1.2-5.4) 04/21/19 07:40 Abs React Lymphs (Man) 0.0 K/mm3 04/21/19 07:40 1.1 K/mm3 (0.0-0.8) H 04/21/19 07:40 0.4 K/mm3 (0.0-0.4) 04/21/19 07:40 0.0 K/mm3 (0.0-0.1) 04/21/19 07:40 0.0 K/mm3 04/21/19 07:40 0.0 K/mm3 04/21/19 07:40 0.0 K/mm3 04/21/19 07:40 Blast Cells # 0.0 K/mm3 04/21/19 07:40 WBC Morphology Not Reportable 04/21/19 07:40 Hypersegmented Neuts Not Reportable 04/21/19 07:40 Hyposegmented Neuts Not Reportable 04/21/19 07:40 Hypogranular Neuts Not Reportable 04/21/19 07:40 Not Reportable 04/21/19 07:40 Not Reportable 04/21/19 07:40 Not Reportable 04/21/19 07:40 Not Reportable 04/21/19 07:40 Not Reportable 04/21/19 07:40 Not Reportable 04/21/19 07:40 Consistent w auto 04/21/19 07:40 Not Reportable 04/21/19 07:40 Plt Clumps, EDTA Not Reportable 04/21/19 07:40 Not Reportable 04/21/19 07:40 Not Reportable 04/21/19 07:40 Not Reportable 04/21/19 07:40 Plt Morphology Comment Not Reportable 04/21/19 07:40 RBC Morphology Not Reportable 04/21/19 07:40 Dimorphic RBCs Not Reportable 04/21/19 07:40 Few 04/21/19 07:40 1+ 04/21/19 07:40 Not Reportable 04/21/19 07:40 Not Reportable 04/21/19 07:40 Not Reportable 04/21/19 07:40 Not Reportable 04/21/19 07:40 Not Reportable 04/21/19 07:40 Not Reportable 04/21/19 07:40 Not Reportable 04/21/19 07:40 2+ 04/21/19 07:40 Not Reportable 04/21/19 07:40 Not Reportable 04/21/19 07:40 Not Reportable 04/21/19 07:40 Not Reportable 04/21/19 07:40 Not Reportable 04/21/19 07:40 Not Reportable 04/21/19 07:40 Not Reportable 04/21/19 07:40 Not Reportable 04/21/19 07:40 Not Reportable 04/21/19 07:40 Acanthocytes (Spur) Not Reportable 04/21/19 07:40 Rouleaux Not Reportable 04/21/19 07:40 Not Reportable 04/21/19 07:40 Not Reportable 04/21/19 07:40 Not Reportable 04/21/19 07:40 Not Reportable 04/21/19 07:40 Hem Pathologist Commnt No 04/21/19 07:40 Sodium 140 mmol/L (137-145) 04/23/19 07:23 Potassium 4.0 mmol/L (3.6-5.0) 04/23/19 07:23 Chloride 91.5 mmol/L (98-107) L 04/23/19 07:23 Carbon Dioxide 27 mmol/L (22-30) 04/23/19 07:23 26 mmol/L 04/23/19 07:23 BUN 37 mg/dL (7-17) H 04/23/19 07:23 6.0 mg/dL (0.7-1.2) H 04/23/19 07:23 Estimated GFR 9 ml/min 04/23/19 07:23 6 % 04/23/19 07:23 Glucose 79 mg/dL (65-100) 04/23/19 07:23 POC Glucose 69 (70-105) L 04/23/19 13:12 Calcium 8.5 mg/dL (8.4-10.2) 04/23/19 07:23 Phosphorus 3.60 mg/dL (2.5-4.5) 04/20/19 12:09 0.90 mg/dL (0.1-1.2) 04/20/19 12:09 AST 34 units/L (5-40) 04/20/19 12:09 ALT 22 units/L (7-56) 04/20/19 12:09 561 units/L (35-129) H 04/20/19 12:09 NT-Pro-B Natriuret Pep 80173 pg/mL (0-900) H 04/20/19 12:09 8.4 g/dL (6.3-8.2) H 04/20/19 12:09 3.5 g/dL (3.9-5) L 04/20/19 12:09 0.7 % 04/20/19 12:09 Triglycerides 98 mg/dL (2-149) 04/21/19 19:20 Cholesterol 146 mg/dL (50-199) 04/21/19 19:20 78 mg/dL (50-130) 04/21/19 19:20 57 mg/dL (40-59) 04/21/19 19:20 2.56 % 04/21/19 19:20 Vancomycin Trough 11.4 ug/mL (5.0-20.0) 04/21/19 19:20 Active Medications - Current Medications Current Medications: Generic Name Dose Route Start Last Admin Trade Name Freq PRN Reason Stop Dose Admin Acetaminophen 650 mg 04/20/19 19:38 Tylenol PO Q4H PRN Pain MILD(1-3)/Fever >100.5/CASTILLO Atropine Sulfate 1 drops 04/21/19 10:00 04/23/19 09:17 Isopto Atropine OS 1 drops BID FATMATA Administration Dextrose 50 ml 04/20/19 19:38 D50w (25gm) Syringe IV PRN PRN Hypoglycemia Docusate Sodium 100 mg 04/20/19 22:00 04/23/19 09:16 Colace PO 100 mg BID [facility] Administration Epoetin Jacoby 10,000 unit 04/21/19 11:51 Procrit IV FRANCOIS PRN hemodialysis Heparin Sodium (Porcine) 5,000 unit 04/20/19 22:00 04/23/19 09:17 Heparin SUB-Q 5,000 unit Q12HR FATMATA Administration Hydralazine HCl 10 mg 04/20/19 20:06 Apresoline IV Q4HR PRN Blood Pressure Hydromorphone HCl 0.5 mg 04/22/19 14:42 04/23/19 08:00 Dilaudid IV 0.5 mg Q4H PRN Administration Pain , Severe (7-10) Sodium Chloride 100 mls @ 999 mls/hr 04/21/19 11:51 Nacl 0.9% IV FRANCOIS PRN Hypotension Cefepime HCl 1 gm in 100 mls @ 200 mls/hr 04/21/19 18:00 04/22/19 18:23 Maxipime/Ns 1 Gm/100 Ml IV 200 mls/hr QPM FATMATA Administration Protocol Vancomycin HCl 1 gm in 250 mls @ 167.007 mls/hr 04/24/19 18:00 Vancomycin/Ns 1 Gm/250 Ml IV TuThSa@1800 [facility] Insulin Glargine 15 units 04/20/19 22:00 04/22/19 23:16 Lantus SUB-Q 15 units QHS FATMATA Administration Insulin Human Lispro 0 unit 04/20/19 22:00 04/23/19 09:19 Humalog SUB-Q Not Given ACHS [facility] Protocol Metoprolol Tartrate 100 mg 04/20/19 22:00 04/23/19 09:16 Lopressor PO 100 mg BID FATM[facility] Administration Minoxidil 10 mg 04/21/19 10:00 04/23/19 09:24 Loniten PO 10 mg DAILY [facility] Administration Moxifloxacin HCl 1 drops 04/21/19 10:00 04/23/19 09:18 Vigamox OS 1 drops QID [facility] Administration Ondansetron HCl 4 mg 04/20/19 19:38 04/23/19 04:25 Zofran IV 4 mg Q8H PRN Administration Nausea And Vomiting Prednisolone Acetate 1 drops 04/21/19 10:00 04/23/19 09:22 Pred Forte 1% OS 1 drops QID FATM[facility] Administration Sodium Chloride 10 ml 04/20/19 22:00 04/22/19 22:07 Sodium Chloride Flush Syringe 10 Ml IV 10 ml BID FATMATA Administration Sodium Chloride 10 ml 04/20/19 19:38 Sodium Chloride Flush Syringe 10 Ml IV PRN PRN LINE FLUSH Torsemide 40 mg 04/21/19 10:00 04/23/19 09:15 Demadex PO 40 mg DAILY [facility] Administration Zolpidem Tartrate 5 mg 04/20/19 19:36 Ambien PO QHS PRN Sleep Nutrition/Malnutrition Assess - Dietary Evaluation Nutrition/Malnutrition Findings: Nutrition Notes Start: 04/21/19 12:55 Freq: Status: Active Protocol: Document 04/21/19 12:55 LP (Rec: 04/21/19 13:00 LP [id number]) Nutrition Notes 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 Pt states not eating well [employer] and it started yesterday. Pt vomited green emesis at time of visit. Pt getting Zofran. Pt states she will have extra protein and Sajan once diet advanced. Burn Absent Trauma Absent #1 Nutrition Diagnosis Inadequate oral intake Etiology N/V As Evidenced by Signs and Symptoms Pt started vomiting yesterday and this morning. Is patient on ventilator? No Is Patient Ambulatory and/or Out of Bed Yes REE-([facility]-ambulatory/OOB) [ [id number] [id number]] Calculation Used for Recommendations [facility] Additional Notes Protein needs are 100-116g (1. 2-1.4g/kg) Fluid needs are 1ml/kcal Nutrition Intervention Change Diet Order: Advance as tolerated Add Supplement/Snack (indicate name/kcal Sajan BID and double protein /protein ) once diet advanced Goal #1 Advance diet as tolerated Anticipated Discharge Needs: Unable to determine at this time Follow-Up By: 04/24/19 Additional Comments Follow for diet advancement/ intakes
[2019-04-23] MEDS: SODIUM CHLORIDE FLUSH SYRINGE 10 ML IV SCH ×2 (13:57→22:00)
--- NOTE | 2019-04-23 14:23 | Magnetic Resonance Report ---
MR LOWER EXTREMITY NON-JOINT LEFT WITHOUT CONTRAST History: Osteomyelitis, plantar wound Technique: Multisequence, multiplanar MRI without IV contrast. Findings: There is moderate diffuse subcutaneous and muscular edema consistent with cellulitis and myositis. Shallow skin ulceration is identified in the plantar region. There is no obvious abscess. There is normal bone marrow signal throughout the visualized structures of the hindfoot. No evidence for osteomyelitis. The musculotendinous structures are intact. The plantar fascia is intact. IMPRESSION: Cellulitis. Myositis. No evidence for osteomyelitis.
[2019-04-23] MEDS: MAXIPIME/NS 1 GM/100 ML 1 GM/100 ML BAG IV SCH (17:09)
[2019-04-23] MEDS: LANTUS SUB-Q SCH (22:09)
--- NOTE | 2019-04-24 07:50 | Progress Note ---
Assessment and Plan - Patient Problems (1) ESRD (end stage renal disease) Current Visit: No Status: Chronic Plan to address problem: Will maintain on a Tuesday inpatient hemodialysis schedule. (2) Diabetic ulcer of heel Current Visit: Yes Status: Acute Qualifiers: Laterality: left Non-pressure ulcer stage: limited to breakdown of skin Plan to address problem: POD 3 debridement of diabetic foot ulcer. MRI without evidence of osteomyelitis (3) Hypertensive chronic kidney disease with stage 5 chronic kidney disease or end stage renal disease Current Visit: No Status: Chronic Plan to address problem: Continue home antihypertensive regimen and we'll monitor closely. (4) Type 2 diabetes mellitus with diabetic chronic kidney disease Current Visit: No Status: Chronic Qualifiers: Chronic kidney disease stage: on chronic dialysis Plan to address problem: Diabetes management per primary attending. Subjective Date of service: 04/24/19 Interval history: MRI does not show evidence of acute osteomyelitis, only cellulitis. Pending HD today. Objective - Vital Signs Vital signs: Vital Signs - 12hr 04/23/19 04/23/19 04/23/19 20:08 20:38 21:52 Temperature 98.8 F Pulse Rate 57 L Respiratory 16 17 16 Rate Respiratory Rate [Leg] Blood Pressure Blood Pressure 114/63 [Left] O2 Sat by Pulse Oximetry 04/23/19 04/23/19 04/24/19 22:00 23:48 04:00 Temperature 98.2 F Pulse Rate 68 Respiratory 20 17 Rate Respiratory 17 Rate [Leg] Blood Pressure 130/71 Blood Pressure [Left] O2 Sat by Pulse 100 Oximetry 04/24/19 06:27 Temperature 98.6 F Pulse Rate 74 Respiratory 20 Rate Respiratory Rate [Leg] Blood Pressure 142/74 Blood Pressure [Left] O2 Sat by Pulse 95 Oximetry - General Appearance General appearance: well-developed, well-nourished, appears stated age, obese EENT: ATNC, PERRL Neck: no JVD, no thyromegaly Respiratory: Present: Clear to Ascultation, Decreased Breath Sounds, Normal Exam Cardiology: regular Gastrointestinal: normal, normoactive bowel sounds Integumentary: no rash, warm and dry, ulcer Neurologic: no focal deficit, no asterixis, alert and oriented x3 Psychiatric: mood/affect appropriate, cooperative - Lab 04/23/19 07:23 04/23/19 07:23 Most recent lab results Calcium 8.5 mg/dL (8.4-10.2) 04/23/19 07:23 Phosphorus 3.60 mg/dL (2.5-4.5) 04/20/19 12:09 - Allied health notes Allied health notes reviewed: nursing Medications & Allergies - Medications Allergies/Adverse Reactions: Allergies amlodipine Allergy (Verified 04/20/19 11:49) Itching losartan Allergy (Verified 04/20/19 11:49) Itching sulfamethoxazole [From Bactrim] Allergy (Verified 04/20/19 11:49) Rash trimethoprim [From Bactrim] Allergy (Verified 04/20/19 11:49) Rash morphine Adverse Reaction (Verified 04/20/19 11:49) Vomiting Home Medications: Home Medications Medication Instructions Recorded Confirmed Last Taken Type Insulin Glargine [Lantus VIAL] 15 unit SUB-Q DAILY 08/02/17 04/20/19 3 Days Ago History ~02/25/18 Torsemide [Demadex] 40 mg PO DAILY 08/02/17 04/20/19 3 Days Ago History ~02/25/18 Metoprolol [Lopressor TAB] 100 mg PO BID 12/01/18 04/20/19 Unknown History Minoxidil [Loniten] 10 mg PO DAILY 12/01/18 04/20/19 Unknown History Zolpidem [Ambien] 5 mg PO QHS PRN tablet 12/05/18 04/20/19 Unknown Rx Insulin Lispro [Humalog 100 7 units SUB-Q TIDAC 04/20/19 04/20/19 Unknown History UNITS/ML Kwikpen] Atropine 1% Ophth Soln 1 drop OS BID 04/21/19 04/21/19 Unknown History Moxifloxacin 0.5% [Vigamox] 1 drop OS 4XD 04/21/19 04/21/19 Unknown History Prednisolone Acet 1% Eye Drop 1 drop OS 4XD 04/21/19 04/21/19 Unknown History Active Medications: Generic Name Dose Route Start Last Admin Trade Name Freq PRN Reason Stop Dose Admin Acetaminophen 650 mg 04/20/19 19:38 Tylenol PO Q4H PRN Pain MILD(1-3)/Fever >100.5/CASTILLO Atropine Sulfate 1 drops 04/21/19 10:00 04/23/19 21:59 Isopto Atropine OS 1 drops BID [facility] Administration Dextrose 50 ml 04/20/19 19:38 D50w (25gm) Syringe IV PRN PRN Hypoglycemia Docusate Sodium 100 mg 04/20/19 22:00 04/23/19 22:08 Colace PO Not Given BID [facility] Epoetin Jacoby 10,000 unit 04/21/19 11:51 Procrit IV FRANCOIS PRN hemodialysis Heparin Sodium (Porcine) 5,000 unit 04/20/19 22:00 04/23/19 21:59 Heparin SUB-Q 5,000 unit Q12HR FATMATA Administration Hydralazine HCl 10 mg 04/20/19 20:06 Apresoline IV Q4HR PRN Blood Pressure Hydromorphone HCl 0.5 mg 04/22/19 14:42 04/23/19 20:08 Dilaudid IV 0.5 mg Q4H PRN Administration Pain , Severe (7-10) Sodium Chloride 100 mls @ 999 mls/hr 04/21/19 11:51 Nacl 0.9% IV FRANCOIS PRN Hypotension Cefepime HCl 1 gm in 100 mls @ 200 mls/hr 04/21/19 18:00 04/23/19 17:09 Maxipime/Ns 1 Gm/100 Ml IV 200 mls/hr QPM [facility] Administration Protocol Vancomycin HCl 1 gm in 250 mls @ 167.007 mls/hr 04/24/19 18:00 Vancomycin/Ns 1 Gm/250 Ml IV TuThSa@1800 [facility] Insulin Glargine 15 units 04/20/19 22:00 04/23/19 22:09 Lantus SUB-Q Not Given QHS [facility] Insulin Human Lispro 0 unit 04/20/19 22:00 04/23/19 22:08 Humalog SUB-Q Not Given ACHS [facility] Protocol Metoprolol Tartrate 100 mg 04/20/19 22:00 04/23/19 22:09 Lopressor PO Not Given BID [facility] Minoxidil 10 mg 04/21/19 10:00 04/23/19 09:24 Loniten PO 10 mg DAILY [facility] Administration Moxifloxacin HCl 1 drops 04/21/19 10:00 04/23/19 21:59 Vigamox OS 1 drops QID [facility] Administration Ondansetron HCl 4 mg 04/20/19 19:38 04/23/19 22:00 Zofran IV 4 mg Q8H PRN Administration Nausea And Vomiting Prednisolone Acetate 1 drops 04/21/19 10:00 04/23/19 21:59 Pred Forte 1% OS 1 drops QID [facility] Administration Sodium Chloride 10 ml 04/20/19 22:00 04/23/19 22:00 Sodium Chloride Flush Syringe 10 Ml IV 10 ml BID [facility] Administration Sodium Chloride 10 ml 04/20/19 19:38 Sodium Chloride Flush Syringe 10 Ml IV PRN PRN LINE FLUSH Torsemide 40 mg 04/21/19 10:00 04/23/19 09:15 Demadex PO 40 mg DAILY [facility] Administration Zolpidem Tartrate 5 mg 04/20/19 19:36 Ambien PO QHS PRN Sleep
[2019-04-24] MEDS: HumaLOG SUB-Q SCH ×4 (09:19→17:40)
--- NOTE | 2019-04-24 09:58 | Progress Note ---
Assessment and Plan Cultures: 04/21/19 Left foot surgical culture; in progress 04/21/19 MRSA: negative A/P: 54-year-old female with a past medical history of ESRD on HD M/W/, HTN.Insulin-dependent diabetes who presents to the ED on 04/20/19 with complaints of left foot drainage and pain. She stated that she began experience left foot pain one week ago and drainage since Tuesday. Admitted with: 1. Leukocytosis: Improved. Likely related to left foot diabetic heel ulcer. No fever. Blood cultures not drawn. Currently being treated , Cefepime and Vancomycin. 2. Left foot diabetic heel ulcer: Foul smelling, liquified necrosis of the left heel. Left foot xray shows diffuse soft tissue swelling and extensive artherosclerotic vascular calcification. S/P left heel debridement 04/21/19. Surgical cultures are in progress. MRI showed moderate diffuse subcutaneous and muscular edema consistent with cellulitis and myositis.No obvious abscess. no evidence of osteomyelitis 3. ESRD on HD: M/W/. Antibiotics renally dosed 4. Type 2 diabetes mellitus: recommend tight glycemic control Plan -Continue Cefepime 1 gm IV qpm, D4 -Continue Vancomycin PK consult, D3 - follow-up surgical cultures -follow-up arterial duplex scan- report pending -Anticipate discharge on Levaquin 500 mg PO every 48 hours and Flagyl 500 mg PO every 8 hours for total 14 days ending 05-04-19 ( tentative, waiting on arterial doppler scan) [facility] [employer] [facility] M: [phone] O:[phone] Subjective Date of service: 04/24/19 Interval history: Patient seen and examined. Continued left foot discomfort. No fevers or SOB. Objective - Exam Narrative Exam: Constitutional: Alert. Awake. Continued left heel pain Head, Ears, Nose: Normocephalic, atraumatic. External ears, nose normal Eyes: Conjunctivae/corneas clear. No icterus. No ptosis. Neck: Supple, no meningeal signs Oral: dentition fair. No thrush Cardiovascular: S1, S2 normal. Respiratory: Good air entry, clear to auscultation bilaterally GI: Soft, non-tender; bowel sounds normal. No peritoneal signs Musculoskeletal: Left diabetic heel ulcer. s/p I &D 04/21/19. + dressing C/D/I Skin: same as above Hem/Lymphatic: No palpable cervical or supraclavicular nodes. No lymphangitis Psych: Mood ok. Affect normal Neurological: Awake, alert, oriented. - Constitutional Vitals: Vital Signs Temp Pulse Resp BP Pulse Ox 98.6 F 74 20 142/74 95 04/24/19 06:27 04/24/19 06:27 04/24/19 06:27 04/24/19 06:27 04/24/19 06:27 Temperature -Last 24 Hours Temperature 98.6 F Temperature 98.2 F Temperature 98.8 F Temperature 98.3 F Temperature 98.0 F - Labs CBC & Chem 7: 04/23/19 07:23 04/23/19 07:23 Labs: Abnormal lab results 04/23/19 04/23/19 04/23/19 Range/Units 11:18 13:12 21:33 POC Glucose 64 L 69 L 133 H (70-105)
[2019-04-24] MEDS: COLACE PO SCH ×2 (10:29→22:18)
[2019-04-24] MEDS: DEMADEX PO SCH (10:29)
[2019-04-24] MEDS: DILAUDID IV PRN ×3 (10:38→22:22)
[2019-04-24] MEDS: SODIUM CHLORIDE FLUSH SYRINGE 10 ML IV SCH ×2 (10:39→22:21)
--- NOTE | 2019-04-24 11:21 | Progress Note ---
Assessment and Plan Assessment and plan: Left foot diabetic heel ulcer: Foul smelling, liquified necrosis of the left heel. Left foot xray shows diffuse soft tissue swelling and extensive artherosclerotic vascular calcification. S/P left heel debridement 04/21/19. Surgical cultures are in progress. MRI showed moderate diffuse subcutaneous and muscular edema consistent with cellulitis and myositis. No obvious abscess. no evidence of osteomyelitis. Continue cefepime and vancomycin per ID Sepsis. Etiology secondary to above. ESRD on HD: M/W/F. Antibiotics renally dosed Type 2 diabetes mellitus: Continue tight glycemic control. SSRI and Accu-Cheks Hypertension. Continue antihypertensive medications. History Interval history: 54-year-old female with history of ESRD on HD M/W/F, HTN, insulin-dependent diabetes who presents to [facility] ED with complaints of left foot drainage and pain for the past week. Patient is afebrile with leukocytosis at 15.1. Foot x-ray showed diffuse soft tissue swelling with extensive atherosclerotic vascular calcification. On examination there is necrotic tissue to left heel, with moist wound base. Hospitalist Physical - Constitutional Vitals: Temp Pulse Resp BP Pulse Ox 98.6 F 74 20 142/74 95 04/24/19 06:27 04/24/19 06:27 04/24/19 06:27 04/24/19 06:27 04/24/19 06:27 General appearance: Present: no acute distress - EENT Eyes: Present: PERRL, EOM intact ENT: hearing intact, clear oral mucosa, dentition normal - Neck Neck: Present: supple, normal ROM - Respiratory Respiratory effort: normal Respiratory: bilateral: CTA - Cardiovascular Rhythm: regular Heart Sounds: Present: S1 & S2. Absent: gallop, rub - Extremities Extremities: no ischemia, No edema, Full ROM - Abdominal General gastrointestinal: soft, non-tender, non-distended, normal bowel sounds - Integumentary Integumentary: Present: clear, warm, dry - Neurologic Neurologic: CNII-XII intact, moves all extremities Results - Labs CBC & Chem 7: 04/23/19 07:23 04/23/19 07:23 Labs: Laboratory Last Values WBC 11.7 K/mm3 (4.5-11.0) H 04/23/19 07:23 RBC 4.43 M/mm3 (3.65-5.03) 04/23/19 07:23 Hgb 10.4 gm/dl (10.1-14.3) 04/23/19 07:23 Hct 32.3 % (30.3-42.9) 04/23/19 07:23 MCV 73 fl (79-97) L 04/23/19 07:23 MCH 24 pg (28-32) L 04/23/19 07:23 MCHC 32 % (30-34) 04/23/19 07:23 RDW 18.0 % (13.2-15.2) H 04/23/19 07:23 Plt Count 299 K/mm3 (140-440) 04/23/19 07:23 [place] % (Auto) 9.2 % (0.0-7.3) H 04/21/19 07:40 Eos % (Auto) 2.8 % (0.0-4.3) 04/21/19 07:40 [place] # 1.1 K/mm3 (0.0-0.8) H 04/21/19 07:40 Eos # 0.3 K/mm3 (0.0-0.4) 04/21/19 07:40 Baso # 0.1 K/mm3 (0.0-0.1) 04/21/19 07:40 Add Manual Diff Complete 04/21/19 07:40 Total Counted 100 04/21/19 07:40 Seg Neutrophils % 76.7 % (40.0-70.0) H 04/21/19 07:40 Seg Neuts % (Manual) 77.0 % (40.0-70.0) H 04/21/19 07:40 0 % 04/21/19 07:40 11.0 % (13.4-35.0) L 04/21/19 07:40 Reactive Lymphs % (Man) 0 % 04/21/19 07:40 9.0 % (0.0-7.3) H 04/21/19 07:40 3.0 % (0.0-4.3) 04/21/19 07:40 0 % (0.0-1.8) 04/21/19 07:40 0 % 04/21/19 07:40 0 % 04/21/19 07:40 0 % 04/21/19 07:40 0 % 04/21/19 07:40 Nucleated RBC % Not Reportable 04/21/19 07:40 Seg Neutrophils # 8.9 K/mm3 (1.8-7.7) H 04/21/19 07:40 Seg Neutrophils # Man 9.5 K/mm3 (1.8-7.7) H 04/21/19 07:40 Band Neutrophils # 0.0 K/mm3 04/21/19 07:40 1.4 K/mm3 (1.2-5.4) 04/21/19 07:40 Abs React Lymphs (Man) 0.0 K/mm3 04/21/19 07:40 1.1 K/mm3 (0.0-0.8) H 04/21/19 07:40 0.4 K/mm3 (0.0-0.4) 04/21/19 07:40 0.0 K/mm3 (0.0-0.1) 04/21/19 07:40 0.0 K/mm3 04/21/19 07:40 0.0 K/mm3 04/21/19 07:40 0.0 K/mm3 04/21/19 07:40 Blast Cells # 0.0 K/mm3 04/21/19 07:40 WBC Morphology Not Reportable 04/21/19 07:40 Hypersegmented Neuts Not Reportable 04/21/19 07:40 Hyposegmented Neuts Not Reportable 04/21/19 07:40 Hypogranular Neuts Not Reportable 04/21/19 07:40 Not Reportable 04/21/19 07:40 Not Reportable 04/21/19 07:40 Not Reportable 04/21/19 07:40 Not Reportable 04/21/19 07:40 Not Reportable 04/21/19 07:40 Not Reportable 04/21/19 07:40 Consistent w auto 04/21/19 07:40 Not Reportable 04/21/19 07:40 Plt Clumps, EDTA Not Reportable 04/21/19 07:40 Not Reportable 04/21/19 07:40 Not Reportable 04/21/19 07:40 Not Reportable 04/21/19 07:40 Plt Morphology Comment Not Reportable 04/21/19 07:40 RBC Morphology Not Reportable 04/21/19 07:40 Dimorphic RBCs Not Reportable 04/21/19 07:40 Few 04/21/19 07:40 1+ 04/21/19 07:40 Not Reportable 04/21/19 07:40 Not Reportable 04/21/19 07:40 Not Reportable 04/21/19 07:40 Not Reportable 04/21/19 07:40 Not Reportable 04/21/19 07:40 Not Reportable 04/21/19 07:40 Not Reportable 04/21/19 07:40 2+ 04/21/19 07:40 Not Reportable 04/21/19 07:40 Not Reportable 04/21/19 07:40 Not Reportable 04/21/19 07:40 Not Reportable 04/21/19 07:40 Not Reportable 04/21/19 07:40 Not Reportable 04/21/19 07:40 Not Reportable 04/21/19 07:40 Not Reportable 04/21/19 07:40 Not Reportable 04/21/19 07:40 Acanthocytes (Spur) Not Reportable 04/21/19 07:40 Rouleaux Not Reportable 04/21/19 07:40 Not Reportable 04/21/19 07:40 Not Reportable 04/21/19 07:40 Not Reportable 04/21/19 07:40 Not Reportable 04/21/19 07:40 Hem Pathologist Commnt No 04/21/19 07:40 Sodium 140 mmol/L (137-145) 04/23/19 07:23 Potassium 4.0 mmol/L (3.6-5.0) 04/23/19 07:23 Chloride 91.5 mmol/L (98-107) L 04/23/19 07:23 Carbon Dioxide 27 mmol/L (22-30) 04/23/19 07:23 26 mmol/L 04/23/19 07:23 BUN 37 mg/dL (7-17) H 04/23/19 07:23 6.0 mg/dL (0.7-1.2) H 04/23/19 07:23 Estimated GFR 9 ml/min 04/23/19 07:23 6 % 04/23/19 07:23 Glucose 79 mg/dL (65-100) 04/23/19 07:23 POC Glucose 104 (70-105) 04/24/19 07:53 Calcium 8.5 mg/dL (8.4-10.2) 04/23/19 07:23 Phosphorus 3.60 mg/dL (2.5-4.5) 04/20/19 12:09 0.90 mg/dL (0.1-1.2) 04/20/19 12:09 AST 34 units/L (5-40) 04/20/19 12:09 ALT 22 units/L (7-56) 04/20/19 12:09 561 units/L (35-129) H 04/20/19 12:09 NT-Pro-B Natriuret Pep 67561 pg/mL (0-900) H 04/20/19 12:09 8.4 g/dL (6.3-8.2) H 04/20/19 12:09 3.5 g/dL (3.9-5) L 04/20/19 12:09 0.7 % 04/20/19 12:09 Triglycerides 98 mg/dL (2-149) 04/21/19 19:20 Cholesterol 146 mg/dL (50-199) 04/21/19 19:20 78 mg/dL (50-130) 04/21/19 19:20 57 mg/dL (40-59) 04/21/19 19:20 2.56 % 04/21/19 19:20 Vancomycin Trough 11.4 ug/mL (5.0-20.0) 04/21/19 19:20 Active Medications - Current Medications Current Medications: Generic Name Dose Route Start Last Admin Trade Name Freq PRN Reason Stop Dose Admin Acetaminophen 650 mg 04/20/19 19:38 Tylenol PO Q4H PRN Pain MILD(1-3)/Fever >100.5/CASTILLO Atropine Sulfate 1 drops 04/21/19 10:00 04/23/19 21:59 Isopto Atropine OS 1 drops BID FATMATA Administration Dextrose 50 ml 04/20/19 19:38 D50w (25gm) Syringe IV PRN PRN Hypoglycemia Docusate Sodium 100 mg 04/20/19 22:00 04/24/19 10:29 Colace PO 100 mg BID FATMATA Administration Epoetin Jacoby 10,000 unit 04/21/19 11:51 Procrit IV FRANCOIS PRN hemodialysis Heparin Sodium (Porcine) 5,000 unit 04/20/19 22:00 04/23/19 21:59 Heparin SUB-Q 5,000 unit Q12HR FATMATA Administration Hydralazine HCl 10 mg 04/20/19 20:06 Apresoline IV Q4HR PRN Blood Pressure Hydromorphone HCl 0.5 mg 04/22/19 14:42 04/24/19 10:38 Dilaudid IV 0.5 mg Q4H PRN Administration Pain , Severe (7-10) Sodium Chloride 100 mls @ 999 mls/hr 04/21/19 11:51 Nacl 0.9% IV FRANCOIS PRN Hypotension Cefepime HCl 1 gm in 100 mls @ 200 mls/hr 04/21/19 18:00 04/23/19 17:09 Maxipime/Ns 1 Gm/100 Ml IV 200 mls/hr QPM [facility] Administration Protocol Vancomycin HCl 1 gm in 250 mls @ 167.007 mls/hr 04/24/19 18:00 Vancomycin/Ns 1 Gm/250 Ml IV TuThSa@1800 [facility] Insulin Glargine 15 units 04/20/19 22:00 04/23/19 22:09 Lantus SUB-Q Not Given QHS [facility] Insulin Human Lispro 0 unit 04/20/19 22:00 04/24/19 09:19 Humalog SUB-Q Not Given ACHS [facility] Protocol Metoprolol Tartrate 100 mg 04/20/19 22:00 04/23/19 22:09 Lopressor PO Not Given BID [facility] Minoxidil 10 mg 04/21/19 10:00 04/23/19 09:24 Loniten PO [address] [facility] Administration Moxifloxacin HCl 1 drops 04/21/19 10:00 04/23/19 21:59 Vigamox OS [address] [facility] Administration Ondansetron HCl 4 mg 04/20/19 19:38 04/23/19 22:00 Zofran IV 4 mg Q8H PRN Administration Nausea And Vomiting Prednisolone Acetate 1 drops 04/21/19 10:00 04/23/19 21:59 Pred Forte 1% OS 1 drops QID FATMATA Administration Sodium Chloride 10 ml 04/20/19 22:00 04/24/19 10:39 Sodium Chloride Flush Syringe 10 Ml IV 10 ml BID FATMATA Administration Sodium Chloride 10 ml 04/20/19 19:38 Sodium Chloride Flush Syringe 10 Ml IV PRN PRN LINE FLUSH Torsemide 40 mg 06/22/19 10:00 04/24/19 10:29 Demadex PO 40 mg DAILY FATMATA Administration Zolpidem Tartrate 5 mg 04/20/19 19:36 Ambien PO QHS PRN Sleep Nutrition/Malnutrition Assess - Dietary Evaluation Nutrition/Malnutrition Findings: Nutrition Notes Start: 04/21/19 1 2:55 Freq: Status: Active Protocol: Document 04/21/19 12:55 LP (Rec: 04/21/19 13:00 LP [id number]) Nutrition Notes 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 Pt states not eating well [employer] and it started yesterday. Pt vomited green emesis at time of visit. Pt getting Zofran. Pt states she will have extra protein and Sajan once diet advanced. Burn Absent Trauma Absent #1 Nutrition Diagnosis Inadequate oral intake Etiology N/V As Evidenced by Signs and Symptoms Pt started vomiting yesterday and this morning. Is patient on ventilator? No Is Patient Ambulatory and/or Out of Bed Yes REE-([facility]-ambulatory/OOB) [ 1894.919 [id number]] Calculation Used for Recommendations [facility] Additional Notes Protein needs are 100-116g (1. 2-1.4g/kg) Fluid needs are 1ml/kcal Nutrition Intervention Change Diet Order: Advance as tolerated Add Supplement/Snack (indicate name/kcal Sajan BID and double protein /protein ) once diet advanced Goal #1 Advance diet as tolerated Anticipated Discharge Needs: Unable to determine at this time Follow-Up By: 04/24/19 Additional Comments Follow for diet advancement/ intakes
[2019-04-24] MEDS ORDERED: NACL 0.9 (PRIMING MACHINE ONLY DIALYSIS) MC ONE (11:27)
[2019-04-24] MEDS: LONITEN PO SCH (16:20)
[2019-04-24] MEDS: LOPRESSOR PO SCH ×2 (16:21→22:19)
[2019-04-24] MEDS: PRED FORTE 1% OS SCH ×4 (16:26→22:39)
[2019-04-24] MEDS: ISOPTO ATROPINE OS SCH ×2 (16:28→22:39)
[2019-04-24] MEDS: VIGAMOX OS SCH ×4 (16:29→22:40)
[2019-04-24] MEDS: HEPARIN SUB-Q SCH ×2 (16:34→22:19)
[2019-04-24] MEDS ORDERED: VANCOMYCIN/NS 1 GM/250 ML 1 GM/250 ML BAG IV SCH (18:00)
[2019-04-24] MEDS ORDERED: ALUM-MAG HYDROX-SIMETH 200-200-20MG/5ML PO ONE (18:30)
[2019-04-24] MEDS: MAXIPIME/NS 1 GM/100 ML 1 GM/100 ML BAG IV SCH (18:33)
[2019-04-24] MEDS: LANTUS SUB-Q SCH (22:33)
[2019-04-25] MEDS: HumaLOG SUB-Q SCH ×3 (00:30→13:53)
[2019-04-25] MEDS: DILAUDID IV PRN ×2 (04:05→10:21)
[2019-04-25] MEDS: ZOFRAN IV PRN (07:49)
--- NOTE | 2019-04-25 08:47 | Discharge Summary ---
Providers - Providers Date of Admission: 04/20/19 19:38 Date of discharge: 04/25/19 Attending physician: ZAIN PAYNE 04/20/19 17:53 Consult to Physician [CONS] Stat Comment: Dr. Meyers spoke with Dr. Raza @ [phone] Consulting Provider: WALI RAZA Physician Instructions: Reason For Exam: infected ulcer 04/20/19 19:51 Consult to Physician [CONS] Routine Comment: Consulting Provider: ANSHUL HAN Physician Instructions: Reason For Exam: left heel ulcer Consult to Physician [CONS] Routine Comment: Consulting Provider: ALBERTA FAITH Physician Instructions: Reason For Exam: hx ESRD on HD MWF, hd mgmt 04/20/19 21:31 Consult to Wound/ET Nurse [CONS] Routine Reason For Exam: wound eval [facility] Reason for admission: sepsis, heel ulcer Condition: Stable Hospital course: 54-year-old female with history of ESRD on HD M/W/F, HTN, insulin-dependent diabetes who presented to [facility] ED with complaints of left foot drainage and pain for the past week [employer]. Patient was afebrile with leukocytosis at 15.1. Foot x-ray showed diffuse soft tissue swelling with extensive atherosclerotic vascular calcification. On examination there was necrotic tissue to left heel, with moist wound base. The patient was admitted with diagnosis of sepsis and left foot diabetic heel ulcer infection. The patient was same by general surgery and underwent debridement on 04/21/19. MRI was also performed which showed no evidence of osteomyelitis. However there was noted cellulitis/myositis. ID was consulted and managed the antibiotics. MRSA PCR was negative. ID felt patient could be discharged on po antibiotics. Dedicated discharge time 32 minutes. Disposition: DC-01 TO HOME OR SELFCARE Time spent for discharge: 32 - Discharge Diagnoses (1) Diabetic ulcer of heel Status: Acute Qualifiers: Laterality: left Non-pressure ulcer stage: limited to breakdown of skin (2) Hyperglycemia Status: Acute (3) Infected ulcer of skin Status: Acute (4) Sepsis Status: Acute Core Measure Documentation - Palliative Care Palliative Care/ Comfort Measures: Not Applicable - Core Measures Any of the following diagnoses?: none Exam - Constitutional Vitals: Temp Pulse Resp BP Pulse Ox 98.2 F 69 20 159/77 94 04/25/19 05:36 04/25/19 05:36 04/25/19 05:36 04/25/19 05:36 04/25/19 05:36 General appearance: Present: no acute distress, well-nourished - EENT Eyes: Present: PERRL ENT: hearing intact, clear oral mucosa - Neck Neck: Present: supple, normal ROM - Respiratory Respiratory effort: normal Respiratory: bilateral: CTA - Cardiovascular Heart Sounds: Present: S1 & S2. Absent: rub, click - Extremities Extremities: pulses symmetrical, No edema Peripheral Pulses: within normal limits - Abdominal General gastrointestinal: Present: soft, non-tender, non-distended, normal bowel sounds Female genitourinary: Present: normal - Integumentary Integumentary: Present: clear, warm, dry - Musculoskeletal Musculoskeletal: gait normal, strength equal bilaterally - Psychiatric Psychiatric: appropriate mood/affect, intact judgment & insight - Neurologic Neurologic: CNII-XII intact, moves all extremities Plan Activity: advance as tolerated Weight Bearing Status: Weight Bear as Tolerated Wound: per your surgeon's advice, per wound nurse instructions Follow up with: DEISY [place] MD ELIZABETH [Primary Care Provider] - 3-5 Days ANSHUL HAN MD [Staff Physician] - 7 Days WALI RAZA MD [Staff Physician] - 7 Days Prescriptions: Zolpidem [Ambien] 5 mg PO QHS PRN #30 tablet PRN Reason: Sleep Torsemide [Demadex] 40 mg PO DAILY #30 tablet metroNIDAZOLE [Flagyl] 500 mg PO Q8HR #42 tablet Insulin Glargine [Lantus VIAL] 15 unit SUB-Q DAILY 30 Days units levoFLOXacin [Levaquin TAB] 500 mg PO Q48H #7 tablet Minoxidil [Loniten] 10 mg PO DAILY #30 tablet Metoprolol [Lopressor TAB] 100 mg PO BID #60 tablet
--- NOTE | 2019-04-25 09:01 | Progress Note ---
Assessment and Plan - Patient Problems (1) ESRD (end stage renal disease) Current Visit: No Status: Chronic Plan to address problem: Will maintain on a Tuesday inpatient hemodialysis schedule. (2) Diabetic ulcer of heel Current Visit: Yes Status: Acute Qualifiers: Laterality: left Non-pressure ulcer stage: limited to breakdown of skin Plan to address problem: POD 3 debridement of diabetic foot ulcer. MRI without evidence of osteomyelitis Per ID recommendation she will need to continue PO antibiotics as an outpatient. (3) Hypertensive chronic kidney disease with stage 5 chronic kidney disease or end stage renal disease Current Visit: No Status: Chronic Plan to address problem: Continue home antihypertensive regimen and we'll monitor closely. (4) Type 2 diabetes mellitus with diabetic chronic kidney disease Current Visit: No Status: Chronic Qualifiers: Chronic kidney disease stage: on chronic dialysis Plan to address problem: Diabetes management per primary attending. Subjective Date of service: 04/25/19 Interval history: No acute issues from renal standpoint. She continues to c/o nausea and vomiting this am. Low blood sugar noted this am. [place]cal[place] juice at bedside. Tolerated HD well yesterday without any issues. Objective - Vital Signs Vital signs: Vital Signs - 12hr 04/24/19 04/25/19 23:34 05:36 Temperature 98.3 F 98.2 F Pulse Rate 78 69 Respiratory 18 20 Rate Blood Pressure 114/56 159/77 O2 Sat by Pulse 94 94 Oximetry - General Appearance General appearance: well-nourished, appears stated age EENT: ATNC, PERRL Neck: no JVD, no thyromegaly Respiratory: Present: Clear to Ascultation Cardiology: regular, S1S2 Gastrointestinal: normal, normoactive bowel sounds Integumentary: no rash, warm and dry, ulcer Neurologic: no focal deficit, no asterixis Musculoskeletal: other (-edema ) Psychiatric: mood/affect appropriate, cooperative - Lab 04/23/19 07:23 04/23/19 07:23 Most recent lab results Calcium 8.5 mg/dL (8.4-10.2) 04/23/19 07:23 Phosphorus 3.60 mg/dL (2.5-4.5) 04/20/19 12:09 - Allied health notes Allied health notes reviewed: nursing Medications & Allergies - Medications Allergies/Adverse Reactions: Allergies amlodipine Allergy (Verified 04/20/19 11:49) Itching losartan Allergy (Verified 04/20/19 11:49) Itching sulfamethoxazole [From Bactrim] Allergy (Verified 04/20/19 11:49) Rash trimethoprim [From Bactrim] Allergy (Verified 04/20/19 11:49) Rash morphine Adverse Reaction (Verified 04/20/19 11:49) Vomiting Home Medications: Home Medications Medication Instructions Recorded Confirmed Last Taken Type Insulin Lispro [Humalog 100 7 units SUB-Q TIDAC 04/20/19 04/20/19 Unknown History UNITS/ML Kwikpen] Atropine 1% Ophth Soln 1 drop OS BID 04/21/19 04/21/19 Unknown History Moxifloxacin 0.5% [Vigamox] 1 drop OS 4XD 04/21/19 04/21/19 Unknown History Prednisolone Acet 1% Eye Drop 1 drop OS 4XD 04/21/19 04/21/19 Unknown History Epoetin Jacoby 10,000 Unit [Procrit] 10,000 unit IV FRANCOIS PRN vial 04/25/19 Unknown Rx Insulin Glargine [Lantus VIAL] 15 unit SUB-Q DAILY 30 Days units 04/25/19 Unknown Rx Lispro Insulin [HumaLOG] 0 unit SUB-Q ACHS units 04/25/19 Unknown Rx Metoprolol [Lopressor TAB] 100 mg PO BID #60 tablet 04/25/19 Unknown Rx Minoxidil [Loniten] 10 mg PO DAILY #30 tablet 04/25/19 Unknown Rx Torsemide [Demadex] 40 mg PO DAILY #30 tablet 04/25/19 Unknown Rx Zolpidem [Ambien] 5 mg PO QHS PRN #30 tablet 04/25/19 Unknown Rx levoFLOXacin [Levaquin TAB] 500 mg PO Q48H #7 tablet 04/25/19 Unknown Rx metroNIDAZOLE [Flagyl] 500 mg PO Q8HR #42 tablet 04/25/19 Unknown Rx Active Medications: Generic Name Dose Route Start Last Admin Trade Name Freq PRN Reason Stop Dose Admin Acetaminophen 650 mg 04/20/19 19:38 Tylenol PO Q4H PRN Pain MILD(1-3)/Fever >100.5/CASTILLO Atropine Sulfate 1 drops 04/21/19 10:00 04/24/19 22:39 Isopto Atropine OS 1 drops BID FATMATA Administration Dextrose 50 ml 04/20/19 19:38 D50w (25gm) Syringe IV PRN PRN Hypoglycemia Docusate Sodium 100 mg 04/20/19 22:00 04/24/19 22:18 Colace PO 100 mg BID FATMATA Administration Epoetin Jacoby 10,000 unit 04/21/19 11:51 04/24/19 13:00 Procrit IV 10,000 unit FRANCOIS PRN Administration hemodialysis Heparin Sodium (Porcine) 5,000 unit 04/20/19 22:00 04/24/19 22:19 Heparin SUB-Q 5,000 unit Q12HR FATMATA Administration Hydralazine HCl 10 mg 04/20/19 20:06 Apresoline IV Q4HR PRN Blood Pressure Hydromorphone HCl 0.5 mg 04/22/19 14:42 04/25/19 04:05 Dilaudid IV 0.5 mg Q4H PRN Administration Pain , Severe (7-10) Sodium Chloride 100 mls @ 999 mls/hr 04/21/19 11:51 Nacl 0.9% IV FRANCOIS PRN Hypotension Cefepime HCl 1 gm in 100 mls @ 200 mls/hr 04/21/19 18:00 04/24/19 22:34 Maxipime/Ns 1 Gm/100 Ml IV Infused QPM [facility] Infusion Protocol Vancomycin HCl 1 gm in 250 mls @ 167.007 mls/hr 04/24/19 18:00 04/24/19 22:38 Vancomycin/Ns 1 Gm/250 Ml IV Infused TuThSa@1800 [facility] Infusion Insulin Glargine 15 units 04/20/19 22:00 04/24/19 22:33 Lantus SUB-Q 15 units QHS FATMATA Administration Insulin Human Lispro 0 unit 04/20/19 22:00 04/25/19 00:30 Humalog SUB-Q 3 unit ACHS FATMATA Administration Protocol Metoprolol Tartrate 100 mg 04/20/19 22:00 04/24/19 22:19 Lopressor PO 100 mg BID FATMATA Administration Minoxidil 10 mg 04/21/19 10:00 04/24/19 16:20 Loniten PO Not Given DAILY [facility] Moxifloxacin HCl 1 drops 04/21/19 10:00 04/24/19 22:40 Vigamox OS 1 drops QID FATMATA Administration Ondansetron HCl 4 mg 04/20/19 19:38 04/25/19 07:49 Zofran IV 4 mg Q8H PRN Administration Nausea And Vomiting Prednisolone Acetate 1 drops 04/21/19 10:00 04/24/19 22:39 Pred Forte 1% OS 1 drops QID FATMATA Administration Sodium Chloride 10 ml 04/20/19 22:00 04/24/19 22:21 Sodium Chloride Flush Syringe 10 Ml IV 10 ml BID FATMATA Administration Sodium Chloride 10 ml 04/20/19 19:38 Sodium Chloride Flush Syringe 10 Ml IV PRN PRN LINE FLUSH Torsemide 40 mg 04/21/19 10:00 04/24/19 10:29 Demadex PO 40 mg DAILY [facility] Administration Zolpidem Tartrate 5 mg 04/20/19 19:36 04/24/19 22:45 Ambien PO 5 mg QHS PRN Administration Sleep
[2019-04-25] MEDS ORDERED: PROTONIX PO SCH (10:00)
[2019-04-25] MEDS: LONITEN PO SCH (10:02)
[2019-04-25] MEDS: COLACE PO SCH (10:02)
[2019-04-25] MEDS: DEMADEX PO SCH (10:02)
[2019-04-25] MEDS: LOPRESSOR PO SCH (10:03)
[2019-04-25] MEDS: ISOPTO ATROPINE OS SCH (10:03)
[2019-04-25] MEDS: SODIUM CHLORIDE FLUSH SYRINGE 10 ML IV SCH (10:04)
[2019-04-25] MEDS: PRED FORTE 1% OS SCH (10:04)
[2019-04-25] MEDS: VIGAMOX OS SCH (10:04)
[2019-04-25] MEDS: HEPARIN SUB-Q SCH (10:09)
--- NOTE | 2019-04-25 10:10 | Progress Note ---
Assessment and Plan Cultures: 04/21/19 Left foot surgical culture: Klebsiella, Citrobacter, Enterococcus, Sensitive to Cefepime/Levaquin 04/21/19 MRSA: negative A/P: 54-year-old female with a past medical history of ESRD on HD M/W/F, HTN.Insulin-dependent diabetes who presents to the ED on 04/20/19 with complaints of left foot drainage and pain. She stated that she began experience left foot pain one week ago and drainage since Tuesday. Admitted with: 1. Leukocytosis: Improved. Likely related to left foot diabetic heel ulcer. No fever. Blood cultures not drawn. Currently being treated , Cefepime and Vancomycin. 2. Left foot diabetic heel ulcer: Foul smelling, liquified necrosis of the left heel. Left foot xray shows diffuse soft tissue swelling and extensive artherosclerotic vascular calcification. S/P left heel debridement 04/21/19. Surgical cultures grew Klebsiella, Citrobacter, Enterococcus, Sensitive to Cefepime/Levaquin. MRI showed moderate diffuse subcutaneous and muscular edema consistent with cellulitis and myositis.No obvious abscess. no evidence of osteomyelitis. Arterial duplex scan demonstrates No evidence of significant arterial disease. Soft tissue edema. Small soft tissue mass in the left groin may be a mildly enlarged lymph node. 3. ESRD on HD: M/W/F. Antibiotics renally dosed 4. Type 2 diabetes mellitus: recommend tight glycemic control Plan -Continue Cefepime 1 gm IV qpm, D4 -Continue Vancomycin PK consult, D3 - follow-up surgical cultures -follow-up arterial duplex scan- report pending -Anticipate discharge on Levaquin 500 mg PO every 48 hours and Augmentin 500/125 1 tablet PO q day. 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 Complained of N/V and abdominal pain. No fever or SOB. Objective - Exam Narrative Exam: Constitutional: Alert. Awake.mild distress observed. Head, Ears, Nose: Normocephalic, atraumatic. External ears, nose normal Eyes: Conjunctivae/corneas clear. No icterus. No ptosis. Neck: Supple, no meningeal signs Oral: dentition fair. No thrush Cardiovascular: S1, S2 normal. Respiratory: Good air entry, clear to auscultation bilaterally GI: Soft, non-tender; bowel sounds normal. No peritoneal signs Musculoskeletal: Left diabetic heel ulcer. s/p I &D 04/21/19. + dressing C/D/I Skin: same as above Hem/Lymphatic: No palpable cervical or supraclavicular nodes. No lymphangitis Psych: Mood ok. Affect normal Neurological: Awake, alert, oriented. - Constitutional Vitals: Vital Signs Temp Pulse Resp BP Pulse Ox 98.2 F 69 20 159/77 94 04/25/19 05:36 04/25/19 05:36 04/25/19 05:36 04/25/19 05:36 04/25/19 05:36 Temperature -Last 24 Hours Temperature 98.2 F Temperature 98.3 F Temperature 98.6 F Temperature 98.7 F Temperature 98.2 F Temperature 98.2 F - Labs CBC & Chem 7: 04/23/19 07:23 04/23/19 07:23 Labs: Abnormal lab results 04/24/19 04/24/19 04/25/19 Range/Units 17:04 21:50 07:53 POC Glucose 302 H 225 H 57 L (70-105)
--- NOTE | 2019-04-25 10:31 | Vascular Lab Report ---
PROCEDURE: VL ARTERIAL DUPLEX LE LT TECHNIQUE: Arterial duplex Doppler ultrasound left lower extremity. HISTORY: ?osteomyletis COMPARISON: None FINDINGS: There is prominent soft tissue edema. There is triphasic flow demonstrated from the common femoral artery to the popliteal artery. There is biphasic flow catheter. There are no velocity elevations to indicate stenosis. There is a soft tissu e mass in the groin measuring 1.8 x 1.0 cm which may be mildly enlarged lymph node. IMPRESSION: No evidence of significant arterial disease. Soft tissue edema. Small soft tissue mass in the left groin may be a mildly enlarged lymph node. This document is electronically signed by Dolores Shah MD., April 25 2019 10:29:18 AM ET
[2019-04-25 12:13] VITALS: BP 160/79
== END 2019-04-25 13:56 | disposition home health service (06) | DRG 853 ==
LOC: ED 11:48 → 3A 19:38
PROVIDERS: ADMIT Internal Medicine; ATTEND Hospitalist
PROC: 0JBR0ZZ Excision of Left Foot Subcutaneous Tissue and Fascia, Open Approach (ICD-10-PCS; principal; 2019-04-21)
PROC: 5A1D70Z Performance of Urinary Filtration, Intermittent, Less than 6 Hours Per Day (ICD-10-PCS; 2019-04-21)
PROC: 5A1D70Z Performance of Urinary Filtration, Intermittent, Less than 6 Hours Per Day (ICD-10-PCS; 2019-04-24)
DX: A41.9 Sepsis, unspecified organism (principal); N18.6 End stage renal disease; I12.0 Hypertensive chronic kidney disease with stage 5 chronic kidney disease or end stage renal disease; E87.1 Hypo-osmolality and hyponatremia; L97.422 Non-pressure chronic ulcer of left heel and midfoot with fat layer exposed; L03.116 Cellulitis of left lower limb; B96.1 Klebsiella pneumoniae [K. pneumoniae] as the cause of diseases classified elsewhere; B95.2 Enterococcus as the cause of diseases classified elsewhere; M60.872 Other myositis, left ankle and foot; E11.22 Type 2 diabetes mellitus with diabetic chronic kidney disease; E11.65 Type 2 diabetes mellitus with hyperglycemia; I16.0 Hypertensive urgency; E11.621 Type 2 diabetes mellitus with foot ulcer; Z79.4 Long term (current) use of insulin; Z99.2 Dependence on renal dialysis; Z88.5 Allergy status to narcotic agent; Z88.2 Allergy status to sulfonamides; Z88.8 Allergy status to other drugs, medicaments and biological substances; Z95.828 Presence of other vascular implants and grafts
CPT/HCPCS: 36415; 80048; 80053; 80061; 80202; 82962; 83880; 84100; 85007; 85025; 85027; 87076; 87116; 87186; 88305; 96365; 96367; 96375; G0378; A6260; J0295; J0692; J0885; J1170; J1644; J1815; J2370; J2405; J2704; J2710; J3010; J3246; J3370; J7030; J7040

== ENCOUNTER 2019-05-02 10:57 | Outpatient (CLI) | payer MEDICARE ==
[2019-05-02] MEDS ORDERED: XYLOCAINE TOPICAL 4% TP ONE (11:21)
[2019-05-02] MEDS ORDERED: SILVER NITRATE TP ONE (13:22)
== END 2019-05-02 10:58 | disposition home or self-care (01) ==
LOC: WOUND 10:57
PROVIDERS: ATTEND Surgery
DX: E11.621 Type 2 diabetes mellitus with foot ulcer (principal); L97.423 Non-pressure chronic ulcer of left heel and midfoot with necrosis of muscle; K21.9 Gastro-esophageal reflux disease without esophagitis; I10 Essential (primary) hypertension; Z87.891 Personal history of nicotine dependence; Z99.2 Dependence on renal dialysis
CPT/HCPCS: 11043; 11046; G0463; 99205

== ENCOUNTER 2019-05-04 14:16 | Outpatient (CLI) | payer MEDICARE ==
--- NOTE | 2019-05-04 15:03 | XRay Report ---
CHEST 2 VIEWS INDICATION / CLINICAL INFORMATION: Type 2 diabetes mellitus with foot ulcer. COMPARISON: None available. FINDINGS: SUPPORT DEVICES: None. HEART / MEDIASTINUM: No significant abnormality. LUNGS / PLEURA: Patchy parenchymal opacities present in the left lower lobe. No significant pleural e ffusion. Calcified granuloma in the right upper lobe. No pneumothorax. ADDITIONAL FINDINGS: No significant additional findings. IMPRESSION: 1. Patchy parenchymal opacification in the left lower lobe, probable focal infectious or inflammatory process. Signer Name: Nolan Dodd MD Signed: 05/04/2019 2:58 PM Workstation Name: [id number]
== END 2019-05-04 14:17 | disposition home or self-care (01) ==
LOC: XRAY 14:16
PROVIDERS: ATTEND Surgery
DX: E11.621 Type 2 diabetes mellitus with foot ulcer (principal); L97.423 Non-pressure chronic ulcer of left heel and midfoot with necrosis of muscle; E78.00 Pure hypercholesterolemia, unspecified; I12.0 Hypertensive chronic kidney disease with stage 5 chronic kidney disease or end stage renal disease; E11.22 Type 2 diabetes mellitus with diabetic chronic kidney disease; N18.6 End stage renal disease
CPT/HCPCS: 36415; 71046; 83036

== ENCOUNTER 2019-05-08 12:43 | Outpatient (CLI) | payer MEDICARE | END 2019-05-08 12:44 | disposition home or self-care (01) | LOC: WOUND 12:43 | PROVIDERS: ATTEND Surgery | DX: E11.621 Type 2 diabetes mellitus with foot ulcer (principal); L97.423 Non-pressure chronic ulcer of left heel and midfoot with necrosis of muscle; K21.9 Gastro-esophageal reflux disease without esophagitis; I10 Essential (primary) hypertension; Z87.891 Personal history of nicotine dependence; Z99.2 Dependence on renal dialysis ==

== ENCOUNTER 2019-05-10 12:41 | Outpatient (CLI) | payer MEDICARE | END 2019-05-10 12:42 | disposition home or self-care (01) | LOC: WOUND 12:41 | PROVIDERS: ATTEND Surgery | DX: E11.621 Type 2 diabetes mellitus with foot ulcer (principal); L97.423 Non-pressure chronic ulcer of left heel and midfoot with necrosis of muscle; I10 Essential (primary) hypertension; Z87.891 Personal history of nicotine dependence; Z99.2 Dependence on renal dialysis | CPT/HCPCS: 82962 ==

== ENCOUNTER 2019-05-11 11:22 | Outpatient (CLI) | payer MEDICARE | END 2019-05-11 11:23 | disposition home or self-care (01) | LOC: WOUND 11:22 | PROVIDERS: ATTEND Surgery | DX: E11.621 Type 2 diabetes mellitus with foot ulcer (principal); L97.423 Non-pressure chronic ulcer of left heel and midfoot with necrosis of muscle; K21.9 Gastro-esophageal reflux disease without esophagitis; I10 Essential (primary) hypertension; Z87.891 Personal history of nicotine dependence; Z99.2 Dependence on renal dialysis | CPT/HCPCS: 82962; 99183; G0277 ==

== ENCOUNTER 2019-05-14 09:57 | Outpatient (CLI) | payer MEDICARE ==
[2019-05-14] MEDS ORDERED: SILVER NITRATE TP ONE (10:33)
[2019-05-14] MEDS ORDERED: AD OINTMENT TP PRN (10:53)
== END 2019-05-14 09:58 | disposition home or self-care (01) ==
LOC: WOUND 09:57
PROVIDERS: ATTEND Surgery
DX: E11.621 Type 2 diabetes mellitus with foot ulcer (principal); L97.423 Non-pressure chronic ulcer of left heel and midfoot with necrosis of muscle; K21.9 Gastro-esophageal reflux disease without esophagitis; I10 Essential (primary) hypertension; Z87.891 Personal history of nicotine dependence; Z99.2 Dependence on renal dialysis

== ENCOUNTER 2019-05-28 08:48 | Outpatient (CLI) | payer MEDICARE ==
[2019-05-28] MEDS ORDERED: SILVER NITRATE TP ONE (10:30)
[2019-05-28] MEDS ORDERED: XYLOCAINE TOPICAL 4% TP ONE (10:30)
== END 2019-05-28 08:49 | disposition home or self-care (01) ==
LOC: WOUND 08:48
PROVIDERS: ATTEND Surgery
DX: E11.621 Type 2 diabetes mellitus with foot ulcer (principal); L97.423 Non-pressure chronic ulcer of left heel and midfoot with necrosis of muscle; K21.9 Gastro-esophageal reflux disease without esophagitis; I10 Essential (primary) hypertension; Z87.891 Personal history of nicotine dependence; Z99.2 Dependence on renal dialysis

== ENCOUNTER 2019-06-06 11:58 | Outpatient (CLI) | payer MEDICARE ==
[2019-06-06] MEDS ORDERED: XYLOCAINE TOPICAL 4% TP ONE (12:17)
[2019-06-06] MEDS ORDERED: AD OINTMENT TP PRN (12:17)
== END 2019-06-06 11:59 | disposition home or self-care (01) ==
LOC: WOUND 11:58
PROVIDERS: ATTEND Surgery
DX: E11.621 Type 2 diabetes mellitus with foot ulcer (principal); L97.423 Non-pressure chronic ulcer of left heel and midfoot with necrosis of muscle; L89.899 Pressure ulcer of other site, unspecified stage; L97.522 Non-pressure chronic ulcer of other part of left foot with fat layer exposed; K21.9 Gastro-esophageal reflux disease without esophagitis; I10 Essential (primary) hypertension; Z87.891 Personal history of nicotine dependence; Z99.2 Dependence on renal dialysis
CPT/HCPCS: A6250

== ENCOUNTER 2019-06-11 10:54 | Outpatient (CLI) | payer MEDICARE ==
[2019-06-11] MEDS ORDERED: XYLOCAINE TOPICAL 4% TP ONE (11:18)
[2019-06-11] MEDS ORDERED: SILVER NITRATE TP ONE (11:18)
== END 2019-06-11 10:55 | disposition home or self-care (01) ==
LOC: WOUND 10:54
PROVIDERS: ATTEND Surgery
DX: E11.621 Type 2 diabetes mellitus with foot ulcer (principal); L97.426 Non-pressure chronic ulcer of left heel and midfoot with bone involvement without evidence of necrosis; L89.899 Pressure ulcer of other site, unspecified stage; L97.522 Non-pressure chronic ulcer of other part of left foot with fat layer exposed; K21.9 Gastro-esophageal reflux disease without esophagitis; I10 Essential (primary) hypertension; Z87.891 Personal history of nicotine dependence; Z99.2 Dependence on renal dialysis

== ENCOUNTER 2019-06-12 09:12 | Observation (INO) | payer MEDICARE ==
[2019-06-12] MEDS ORDERED: ZOFRAN IV ONE (10:58)
[2019-06-12] MEDS ORDERED: DILAUDID IV ONE ×3 (10:58→15:21)
--- NOTE | 2019-06-12 11:35 | Emergency Department Report ---
ED Extremity Problem HPI - General Chief complaint: Extremity Problem,Nontraumatic Stated complaint: BLEEDING ULCER Time Seen by Provider: 06/12/19 10:20 Source: patient, EMS Mode of arrival: Stretcher Limitations: No Limitations - History of Present Illness Initial comments: 54-year-old female with a past medical history of diabetes, hypertension, end stage renal disease on dialysis Tuesday, , and Tuesday as well as chronic diabetic foot ulcers presents to the hospital with complaints of bleeding to her heel ulcer that started at 6 AM. Patient was treated by Dr awan in wound care and have surgical debridement of her right heel yesterday. Patient states she woke up with bleeding this morning. She complains of moderate pain to the extremity rate of 5/10 in intensity and worse with palpation. Patient takes Percocet at home for pain. She denies a use of blood thinners or aspirin and only takes heparin with her dialysis. Last dialysis was 2 days ago he is due again today but came to the ER instead. No SOB reported. Living Coach: Dr. Beltran. Surgeon Dr. Awan Severity scale (0 -10): 10 - Related Data Home Medications Medication Instructions Recorded Confirmed Last Taken Insulin Lispro [Humalog 100 7 units SUB-Q TIDAC 04/20/19 04/20/19 Unknown UNITS/ML Kwikpen] Atropine 1% Ophth Soln 1 drop OS BID 04/21/19 04/21/19 Unknown Moxifloxacin 0.5% [Vigamox] 1 drop OS 4XD 04/21/19 04/21/19 Unknown Prednisolone Acet 1% Eye Drop 1 drop OS 4XD 04/21/19 04/21/19 Unknown Previous Rx's Medication Instructions Recorded Last Taken Type Epoetin Jacoby 10,000 Unit [Procrit] 10,000 unit IV FRANCOIS PRN vial 04/25/19 Unknown Rx Insulin Glargine [Lantus VIAL] 15 unit SUB-Q DAILY 30 Days units 04/25/19 Unknown Rx Lispro Insulin [HumaLOG] 0 unit SUB-Q ACHS units 04/25/19 Unknown Rx Metoprolol [Lopressor TAB] 100 mg PO BID #60 tablet 04/25/19 Unknown Rx Minoxidil [Loniten] 10 mg PO DAILY #30 tablet 04/25/19 Unknown Rx Torsemide [Demadex] 40 mg PO DAILY #30 tablet 04/25/19 Unknown Rx Zolpidem [Ambien] 5 mg PO QHS PRN #30 tablet 04/25/19 Unknown Rx levoFLOXacin [Levaquin TAB] 500 mg PO Q48H #7 tablet 04/25/19 Unknown Rx metroNIDAZOLE [Flagyl] 500 mg PO Q8HR #42 tablet 04/25/19 Unknown Rx Allergies Allergy/AdvReac Type Severity Reaction Status Date / Time amlodipine Allergy Itching Verified 04/20/19 11:49 losartan Allergy Itching Verified 04/20/19 11:49 sulfamethoxazole Allergy Rash Verified 04/20/19 11:49 [From Bactrim] trimethoprim [From Bactrim] Allergy Rash Verified 04/20/19 11:49 morphine AdvReac Vomiting Verified 04/20/19 11:49 ED Review of Systems ROS: Stated complaint: BLEEDING ULCER Other details as noted in HPI Comment: All other systems reviewed and negative ED Past Medical Hx - Past Medical History Hx Hypertension: Yes Hx Congestive Heart Failure: No Hx Diabetes: Yes Hx Renal Disease: Yes Hx Asthma: No Hx COPD: No Additional medical history: HLD, pancreatitis - Surgical History Additional Surgical History: Left arm Fistula, ERCP, right knee replacement - Social History Smoking Status: Never Smoker Substance Use Type: None - Medications Home Medications: Home Medications Medication Instructions Recorded Confirmed Last Taken Type Insulin Lispro [Humalog 100 7 units SUB-Q TIDAC 04/20/19 04/20/19 Unknown History UNITS/ML Kwikpen] Atropine 1% Ophth Soln 1 drop OS BID 04/21/19 04/21/19 Unknown History Moxifloxacin 0.5% [Vigamox] 1 drop OS 4XD 04/21/19 04/21/19 Unknown History Prednisolone Acet 1% Eye Drop 1 drop OS 4XD 04/21/19 04/21/19 Unknown History Epoetin Jacoby 10,000 Unit [Procrit] 10,000 unit IV FRANCOIS PRN vial 04/25/19 Unknown Rx Insulin Glargine [Lantus VIAL] 15 unit SUB-Q DAILY 30 Days units 04/25/19 Unknown Rx Lispro Insulin [HumaLOG] 0 unit SUB-Q ACHS units 04/25/19 Unknown Rx Metoprolol [Lopressor TAB] 100 mg PO BID #60 tablet 04/25/19 Unknown Rx Minoxidil [Loniten] 10 mg PO DAILY #30 tablet 04/25/19 Unknown Rx Torsemide [Demadex] 40 mg PO DAILY #30 tablet 04/25/19 Unknown Rx Zolpidem [Ambien] 5 mg PO QHS PRN #30 tablet 04/25/19 Unknown Rx levoFLOXacin [Levaquin TAB] 500 mg PO Q48H #7 tablet 04/25/19 Unknown Rx metroNIDAZOLE [Flagyl] 500 mg PO Q8HR #42 tablet 04/25/19 Unknown Rx ED Physical Exam - General Limitations: No Limitations - Other Other exam information: General: no acute distress Head: Atraumatic, normocephalic Eyes: Normal appearance ENT: normal oropharynx Neck: Normal appearance, no stridor, no meningismus, no midline tenderness. Cardiovascular: Regular rate and rhythm Chest: Clear to auscultation, no wheezes, rales, or crackles Abdomen: nondistended, soft, nontender, no rebound or guarding Extremity: Patient has superficial ulcers to the plantar surface of her great and second toes. She has a large right heel wound ulcer with a large blood clot in place. No warmth or erythema. Minimal bleeding at this time. Neuro: Alert and oriented 3, clear speech, no gross motor or sensory deficit Skin: No warmth, erythema ED Course Vital Signs 06/12/19 06/12/19 09:25 13:15 Temperature 98.5 F Pulse Rate 72 Respiratory 16 16 Rate Blood Pressure 186/81 [Left] O2 Sat by Pulse 98 Oximetry - Consultations Consultation #1: 06/12/19 11:33 case d/w Wound care nurse. She and Dr Awan will come to Ed to evaluate wound. 06/12/19 13:30 case d/w Dr nicole worthy, recommended admission for dialysis since it is too late to get into her center today. ED Medical Decision Making - Lab Data Result diagrams: 06/12/19 11:33 06/12/19 11:33 Lab Results 06/12/19 06/12/19 06/12/19 Range/Units 11:08 11:33 11:33 WBC 10.8 (4.5-11.0) K/mm3 RBC 4.13 (3.65-5.03) M/mm3 Hgb 9.5 L (10.1-14.3) gm/dl Hct 29.9 L (30.3-42.9) % MCV 72 L (79-97) fl MCH 23 L (28-32) pg MCHC 32 (30-34) % RDW 19.4 H (13.2-15.2) % Plt Count 227 (140-440) K/mm3 Add Manual Diff Complete Total Counted 100 Seg Neuts % (Manual) 76.0 H (40.0-70.0) % Band Neutrophils % 0 % Lymphocytes % (Manual) 13.0 L (13.4-35.0) % Reactive Lymphs % (Man) 1.0 % Monocytes % (Manual) 3.0 (0.0-7.3) % Eosinophils % (Manual) 7.0 H (0.0-4.3) % Basophils % (Manual) 0 (0.0-1.8) % Metamyelocytes % 0 % Myelocytes % 0 % Promyelocytes % 0 % Blast Cells % 0 % Nucleated RBC % Not Reportable Seg Neutrophils # Man 8.2 H (1.8-7.7) K/mm3 Band Neutrophils # 0.0 K/mm3 Lymphocytes # (Manual) 1.4 (1.2-5.4) K/mm3 Abs React Lymphs (Man) 0.1 K/mm3 Monocytes # (Manual) 0.3 (0.0-0.8) K/mm3 Eosinophils # (Manual) 0.8 H (0.0-0.4) K/mm3 Basophils # (Manual) 0.0 (0.0-0.1) K/mm3 Metamyelocytes # 0.0 K/mm3 Myelocytes # 0.0 K/mm3 Promyelocytes # 0.0 K/mm3 Blast Cells # 0.0 K/mm3 WBC Morphology Not Reportable Hypersegmented Neuts Not Reportable Hyposegmented Neuts Not Reportable Hypogranular Neuts Not Reportable Smudge Cells Not Reportable Toxic Granulation Not Reportable Toxic Vacuolation Not Reportable Dohle Bodies Not Reportable Pelger-Huet Anomaly Not Reportable Mary Lou Rods Not Reportable Platelet Estimate Consistent w auto Clumped Platelets Not Reportable Plt Clumps, EDTA Not Reportable Large Platelets Not Reportable Giant Platelets Not Reportable Platelet Satelliting Not Reportable Plt Morphology Comment Not Reportable RBC Morphology Not Reportable Dimorphic RBCs Not Reportable Polychromasia Not Reportable Hypochromasia 1+ Poikilocytosis 2+ Anisocytosis 1+ Microcytosis Not Reportable Macrocytosis Not Reportable Spherocytes Not Reportable Pappenheimer Bodies Not Reportable Sickle Cells Not Reportable Target Cells 2+ Tear Drop Cells Not Reportable Ovalocytes Not Reportable Helmet Cells Not Reportable [place] Bodies Not Reportable [place] Rings Not Reportable [place] Cells Not Reportable Bite Cells Not Reportable Crenated Cell Not Reportable Elliptocytes Not Reportable Acanthocytes (Spur) Not Reportable Rouleaux Not Reportable Hemoglobin C Crystals Not Reportable Schistocytes Not Reportable Malaria parasites Not Reportable Sigifredo Bodies Not Reportable Hem Pathologist Commnt No PT 13.8 (12.2-14.9) Sec. INR 1.09 (0.87-1.13) APTT 37.5 H (24.2-36.6) Sec. Sodium (137-145) mmol/L Potassium (3.6-5.0) mmol/L Chloride (98-107) mmol/L Carbon Dioxide (22-30) mmol/L Anion Gap mmol/L BUN (7-17) mg/dL Creatinine (0.7-1.2) mg/dL Estimated GFR ml/min BUN/Creatinine Ratio % Glucose (65-100) mg/dL POC Glucose 101 (70-105) Calcium (8.4-10.2) mg/dL 06/12/19 Range/Units 11:33 WBC (4.5-11.0) K/mm3 RBC (3.65-5.03) M/mm3 Hgb (10.1-14.3) gm/dl Hct (30.3-42.9) % MCV (79-97) fl MCH (28-32) pg MCHC (30-34) % RDW (13.2-15.2) % Plt Count (140-440) K/mm3 Add Manual Diff Total Counted Seg Neuts % (Manual) (40.0-70.0) % Band Neutrophils % % Lymphocytes % (Manual) (13.4-35.0) % Reactive Lymphs % (Man) % Monocytes % (Manual) (0.0-7.3) % Eosinophils % (Manual) (0.0-4.3) % Basophils % (Manual) (0.0-1.8) % Metamyelocytes % % Myelocytes % % Promyelocytes % % Blast Cells % % Nucleated RBC % Seg Neutrophils # Man (1.8-7.7) K/mm3 Band Neutrophils # K/mm3 Lymphocytes # (Manual) (1.2-5.4) K/mm3 Abs React Lymphs (Man) K/mm3 Monocytes # (Manual) (0.0-0.8) K/mm3 Eosinophils # (Manual) (0.0-0.4) K/mm3 Basophils # (Manual) (0.0-0.1) K/mm3 Metamyelocytes # K/mm3 Myelocytes # K/mm3 Promyelocytes # K/mm3 Blast Cells # K/mm3 WBC Morphology Hypersegmented Neuts Hyposegmented Neuts Hypogranular Neuts Smudge Cells Toxic Granulation Toxic Vacuolation Dohle Bodies Pelger-Huet Anomaly Mary Lou Rods Platelet Estimate Clumped Platelets Plt Clumps, EDTA Large Platelets Giant Platelets Platelet Satelliting Plt Morphology Comment RBC Morphology Dimorphic RBCs Polychromasia Hypochromasia Poikilocytosis Anisocytosis Microcytosis Macrocytosis Spherocytes Pappenheimer Bodies Sickle Cells Target Cells Tear Drop Cells Ovalocytes Helmet Cells Nelson-[place] Bodies [place] Rings [place] Cells Bite Cells Crenated Cell Elliptocytes Acanthocytes (Spur) Rouleaux Hemoglobin C Crystals Schistocytes Malaria parasites Sigifredo Bodies Hem Pathologist Commnt PT (12.2-14.9) Sec. INR (0.87-1.13) APTT (24.2-36.6) Sec. Sodium 136 L (137-145) mmol/L Potassium 5.2 H (3.6-5.0) mmol/L Chloride 92.5 L (98-107) mmol/L Carbon Dioxide 22 (22-30) mmol/L Anion Gap 27 mmol/L BUN 64 H (7-17) mg/dL Creatinine 7.0 H (0.7-1.2) mg/dL Estimated GFR 7 ml/min BUN/Creatinine Ratio 9 % Glucose 99 (65-100) mg/dL POC Glucose (70-105) Calcium 8.9 (8.4-10.2) mg/dL - Medical Decision Making wound care provided. thanks for wound care and surgical consult. scheduled f/u on Tuesday pt will need admission for dialysis purposes. Dr rivera nephro Dr durham hospitalist aware. - Differential Diagnosis anemia, coagulopathy, infection, post debridement bleeding Critical Care Time: No Critical care attestation.: If time is entered above; I have spent that time in minutes in the direct care of this critically ill patient, excluding procedure time. ED Disposition Clinical Impression: Bleeding from wound, Encounter for wound care, ESRD needing dialysis Diabetic ulcer of heel Qualifiers: Laterality: left Non-pressure ulcer stage: limited to breakdown of skin Disposition: OP ADMIT IP TO THIS HOSP Is pt being admited?: Yes Condition: Stable Additional Instructions: Patient to leave dressing to left foot in place until Tuesday and not to ambulate on it. Follow up appointment made at wound center for Tuesday at 8:00am. Patient made aware. [address] [place] [address] [place] [id number] Time of Disposition: 14:15 (Dr Durham/hosp)
[2019-06-12 12:01] LABS: INR 1.09 (0.87-1.13)
[2019-06-12 12:02] LABS: Partial Thromboplastin Time 37.5 Sec. (24.2-36.6)
[2019-06-12 12:04] LABS: Hematocrit 29.9 % (30.3-42.9); Hemoglobin 9.5 gm/dl (10.1-14.3); Mean Corpuscular HGB Conc 32 % (30-34); Mean Corpuscular Volume 72 fl (79-97); Platelet Count 227 K/mm3 (140-440); Red Blood Count 4.13 M/mm3 (3.65-5.03); Red Cell Distribution Width 19.4 % (13.2-15.2)
[2019-06-12 12:14] LABS: Calcium 8.9 mg/dL (8.4-10.2)
[2019-06-12 12:41] LABS: Anisocytosis 1+; Basophils % (Manual) 0 % (0.0-1.8); Poikilocytosis 2+; Total Cells Counted 100
[2019-06-12 12:42] LABS: Hypochromasia 1+; Platelet Estimate Consistent w Auto; Target Cells 2+
--- NOTE | 2019-06-12 13:31 | Consultation ---
History of Present Illness Consult date: 06/12/19 Chief complaint: 54 yo F with hx of ESRD on HD who is known to us from the wound care center due to wound of left heel and toe wounds. The patient was seen in wound care center by me yesterday and wound debrided. She states that around 5 pm yesterday she noticed blood on her heel dressing and that it never stopped bleeding. Therefore, she presented to ER around 9 am today to be evaluated. Today is her dialysis day. She denies cp, sob, CASTILLO, dizziness, lightheadedness. She does admit to nausea but no vomiting. Past History Past Medical History: diabetes, dialysis Past Surgical History: Other (left foot wound debridements) Social history: no significant social history Family history: no significant family history Medications and Allergies Allergies Allergy/AdvReac Type Severity Reaction Status Date / Time amlodipine Allergy Itching Verified 04/20/19 11:49 losartan Allergy Itching Verified 04/20/19 11:49 sulfamethoxazole Allergy Rash Verified 04/20/19 11:49 [From Bactrim] trimethoprim [From Bactrim] Allergy Rash Verified 04/20/19 11:49 morphine AdvReac Vomiting Verified 04/20/19 11:49 Home Medications Medication Instructions Recorded Confirmed Last Taken Type Insulin Lispro [Humalog 100 7 units SUB-Q TIDAC 04/20/19 04/20/19 Unknown Hi story UNITS/ML Kwikpen] Atropine 1% Ophth Soln 1 drop OS BID 04/21/19 04/21/19 Unknown History Moxifloxacin 0.5% [Vigamox] 1 drop OS 4XD 04/21/19 04/21/19 Unknown History Prednisolone Acet 1% Eye Drop 1 drop OS 4XD 04/21/19 04/21/19 Unknown History Epoetin Jacoby 10,000 Unit [Procrit] 10,000 unit IV FRANCOIS PRN vial 04/25/19 Unknown Rx Insulin Glargine [Lantus VIAL] 15 unit SUB-Q DAILY 30 Days units 04/25/19 Unknown Rx Lispro Insulin [HumaLOG] 0 unit SUB-Q ACHS units 04/25/19 Unknown Rx Metoprolol [Lopressor TAB] 100 mg PO BID #60 tablet 04/25/19 Unknown Rx Minoxidil [Loniten] 10 mg PO DAILY #30 tablet 04/25/19 Unknown Rx Torsemide [Demadex] 40 mg PO DAILY #30 tablet 04/25/19 Unknown Rx Zolpidem [Ambien] 5 mg PO QHS PRN #30 tablet 04/25/19 Unknown Rx levoFLOXacin [Levaquin TAB] 500 mg PO Q48H #7 tablet 04/25/19 Unknown Rx metroNIDAZOLE [Flagyl] 500 mg PO Q8HR #42 tablet 04/25/19 Unknown Rx Review of Systems All systems: negative (10 pt ROS performed and negative except for that listed in HPI) Exam Vital Signs Temp Pulse Resp BP Pulse Ox 98.5 F 72 16 186/81 98 06/12/19 09:25 06/12/19 09:25 06/12/19 09:25 06/12/19 09:25 06/12/19 09:25 Narrative exam: Gen; AAOx3. NAD CV: S1, S2+ Resp; even and unlabored Ext; L heel wound with large blood clot overlying wound bed. Blood clot removed with gauze and oozing of venous blood from wound edges. No evidence of profuse bleeding. Wound bed with bone and fat exposed. Results - Labs 06/12/19 11:33 06/12/19 11:33 Abnormal lab results 06/12/19 06/12/19 06/12/19 Range/Units 11:33 11:33 11:33 Hgb 9.5 L (10.1-14.3) gm/dl Hct 29.9 L (30.3-42.9) % MCV 72 L (79-97) fl MCH 23 L (28-32) pg RDW 19.4 H (13.2-15.2) % Seg Neuts % (Manual) 76.0 H (40.0-70.0) % Lymphocytes % (Manual) 13.0 L (13.4-35.0) % Eosinophils % (Manual) 7.0 H (0.0-4.3) % Seg Neutrophils # Man 8.2 H (1.8-7.7) K/mm3 Eosinophils # (Manual) 0.8 H (0.0-0.4) K/mm3 APTT 37.5 H (24.2-36.6) Sec. Sodium 136 L (137-145) mmol/L Potassium 5.2 H (3.6-5.0) mmol/L Chloride 92.5 L (98-107) mmol/L BUN 64 H (7-17) mg/dL Creatinine 7.0 H (0.7-1.2) mg/dL Diabetes panel 06/12/19 Range/Units 11:33 Sodium 136 L (137-145) mmol/L Potassium 5.2 H (3.6-5.0) mmol/L Chloride 92.5 L (98-107) mmol/L Carbon Dioxide 22 (22-30) mmol/L BUN 64 H (7-17) mg/dL Creatinine 7.0 H (0.7-1.2) mg/dL Glucose 99 (65-100) mg/dL Calcium 8.9 (8.4-10.2) mg/dL Calcium panel 06/12/19 Range/Units 11:33 Calcium 8.9 (8.4-10.2) mg/dL Pituitary panel 06/12/19 Range/Units 11:33 Sodium 136 L (137-145) mmol/L Potassium 5.2 H (3.6-5.0) mmol/L Chloride 92.5 L (98-107) mmol/L Carbon Dioxide 22 (22-30) mmol/L BUN 64 H (7-17) mg/dL Creatinine 7.0 H (0.7-1.2) mg/dL Glucose 99 (65-100) mg/dL Calcium 8.9 (8.4-10.2) mg/dL Adrenal panel 06/12/19 Range/Units 11:33 Sodium 136 L (137-145) mmol/L Potassium 5.2 H (3.6-5.0) mmol/L Chloride 92.5 L (98-107) mmol/L Carbon Dioxide 22 (22-30) mmol/L BUN 64 H (7-17) mg/dL Creatinine 7.0 H (0.7-1.2) mg/dL Glucose 99 (65-100) mg/dL Calcium 8.9 (8.4-10.2) mg/dL Assessment and Plan 54 yo F with bleeding from left heel wound Plan: Fibrillar and surgicel applied to wound bed and pressure held for 10 minutes. All bleeding has stopped. Wound packed with gauze, ABD pad and wrapped with kerlex. JORGE wrap applied as compression dressing. 1. Patient advised to offload 2. patient advised to leave dressing in place and follow up for RN visit in [facility] on Tuesday. 3. patient being admitted for HD per nephro 4. BP control Patient seen with community development director. Thank you, please call with questions.
[2019-06-12] MEDS ORDERED: NACL 0.9% 100 ML IV PRN ×3 (14:00→20:51)
[2019-06-12] MEDS ORDERED: DILAUDID IM ONE (15:16)
[2019-06-12 17:18] LABS: Hepatitis B Surface Antigen Non-Reactive (Negative); Hepatitis C Virus Antibody Non-Reactive (NonReactive)
[2019-06-12] MEDS ORDERED: NACL 0.9 (PRIMING MACHINE ONLY DIALYSIS) MC ONE (19:01)
[2019-06-12] MEDS ORDERED: ZOFRAN IV PRN (20:51)
[2019-06-12] MEDS ORDERED: ZOFRAN ONE (20:59)
[2019-06-13] MEDS ORDERED: APRESOLINE IV PRN (01:03)
[2019-06-13] MEDS ORDERED: PERCOCET 5/325 PO PRN (01:58)
[2019-06-13] MEDS ORDERED: MORPHINE IV ONE (02:38)
[2019-06-13] MEDS ORDERED: DILAUDID IV ONE (02:45)
[2019-06-13] MEDS ORDERED: PROCRIT IV PRN (07:41)
[2019-06-13] MEDS ORDERED: SODIUM CHLORIDE FLUSH SYRINGE 10 ML IV PRN (07:45)
[2019-06-13] MEDS ORDERED: TYLENOL PO PRN (07:45)
[2019-06-13] MEDS ORDERED: ZOFRAN IV PRN ×2 (07:45→14:13)
--- NOTE | 2019-06-13 07:50 | Event Note ---
Date: 06/12/19 See H/p in reports L Foot ulcer ESRD IDDM
[2019-06-13] MEDS ORDERED: LANTUS SUB-Q SCH (10:00)
[2019-06-13] MEDS ORDERED: ATROPINE 1% OS SCH (10:00)
[2019-06-13] MEDS ORDERED: EYE OS SCH (10:00)
[2019-06-13] MEDS ORDERED: NON-FORMULARY (Torsemide [Demadex] 40 MG) PO SCH (10:00)
[2019-06-13] MEDS ORDERED: PREDNISOLONE ACET 1% OS SCH (10:00)
--- NOTE | 2019-06-13 10:01 | Consultation ---
History of Present Illness - Reason for Consult Consult date: 06/13/19 end stage renal disease, hyperkalemia Requesting physician: FARZANEH MEADOWS - History of Present Illness this is a 54-year-old -[place] female with a past medical history of end-stage renal disease, in the setting of diabetes and hypertension, on HD on TTS schedule, well known to us in the outpatient dialysis unit, who presented to [facility] for left heel and toe wound debridement, after patient noticed blood on her heel dressing and that it never stopped bleeding. Renal consult was requested for management of ESRD/HD. pt denies fever, chills, n/v/d, dysuria, abd pain. Past History Past Medical History: diabetes, dialysis, hypertension Past Surgical History: Other (left foot wound debridements) Social history: no significant social history Family history: no significant family history Medications and Allergies Allergies Allergy/AdvReac Type Severity Reaction Status Date / Time amlodipine Allergy Itching Verified 04/20/19 11:49 losartan Allergy Itching Verified 04/20/19 11:49 sulfamethoxazole Allergy Rash Verified 04/20/19 11:49 [From Bactrim] trimethoprim [From Bactrim] Allergy Rash Verified 04/20/19 11:49 morphine AdvReac Vomiting Verified 04/20/19 11:49 Home Medications Medication Instructions Recorded Confirmed Last Taken Type Insulin Lispro [Humalog 100 7 units SUB-Q TIDAC 04/20/19 04/20/19 Unknown History UNITS/ML Kwikpen] Atropine 1% Ophth Soln 1 drop OS BID 04/21/19 04/21/19 Unknown History Moxifloxacin 0.5% [Vigamox] 1 drop OS 4XD 04/21/19 04/21/19 Unknown History Prednisolone Acet 1% Eye Drop 1 drop OS 4XD 04/21/19 04/21/19 Unknown History Epoetin Jacoby 10,000 Unit [Procrit] 10,000 unit IV FRANCOIS PRN vial 04/25/19 Unknown Rx Insulin Glargine [Lantus VIAL] 15 unit SUB-Q DAILY 30 Days units 04/25/19 Unknown Rx Lispro Insulin [HumaLOG] 0 unit SUB-Q ACHS units 04/25/19 Unknown Rx Metoprolol [Lopressor TAB] 100 mg PO BID #60 tablet 04/25/19 Unknown Rx Minoxidil [Loniten] 10 mg PO DAILY #30 tablet 04/25/19 Unknown Rx Torsemide [Demadex] 40 mg PO DAILY #30 tablet 04/25/19 Unknown Rx Zolpidem [Ambien] 5 mg PO QHS PRN #30 tablet 04/25/19 Unknown Rx levoFLOXacin [Levaquin TAB] 500 mg PO Q48H #7 tablet 04/25/19 Unknown Rx metroNIDAZOLE [Flagyl] 500 mg PO Q8HR #42 tablet 04/25/19 Unknown Rx Active Meds: Active Medications Acetaminophen (Tylenol) 650 mg PO Q4H PRN PRN Reason: Pain MILD(1-3)/Fever >100.5/CASTILLO Atropine Sulfate (Isopto Atropine) 1 drops OS BID [facility] Epoetin Ja[place]by (Procrit) 10,000 unit IV FRANCOIS PRN PRN Reason: hemodialysis Hydralazine HCl (Apresoline) 10 mg IV Q4H PRN PRN Reason: Blood Pressure Hydromorphone HCl (Dilaudid) 0.5 mg IV Q3H PRN PRN Reason: Pain , Severe (7-10) Sodium Chloride (Nacl 0.9%) 100 mls @ 999 mls/hr IV FRANCOIS PRN PRN Reason: Hypotension Insulin Glargine (Lantus) 15 units SUB-Q DAILY [facility] Insulin Human Lispro (Humalog) 0 unit SUB-Q ACHS [facility]; Protocol Insulin Human Lispro (Humalog) 7 unit SUB-Q AC [facility] Metoclopramide HCl (Reglan) 5 mg IV Q6H PRN PRN Reason: Nausea And Vomiting Metoprolol Tartrate (Lopressor) 100 mg PO BID [facility] Minoxidil (Loniten) 10 mg PO DAILY [facility] Moxifloxacin HCl (Vigamox) 1 drops OS 4XD [facility] Ondansetron HCl (Zofran) 4 mg IV FRANCOIS PRN PRN Reason: Nausea Ondansetron HCl (Zofran) 4 mg IV Q8H PRN PRN Reason: Nausea And Vomiting Oxycodone/Acetaminophen (Percocet 5/325) 1 tab PO Q6H PRN PRN Reason: Pain, Moderate (4-6) Prednisolone Acetate (Pred Forte 1%) 1 drops OS 4XD [facility] Sodium Chloride (Sodium Chloride Flush Syringe 10 Ml) 10 ml IV BID [facility] Sodium Chloride (Sodium Chloride Flush Syringe 10 Ml) 10 ml IV PRN PRN PRN Reason: LINE FLUSH Torsemide (Demadex) 40 mg PO DAILY [facility] Zolpidem Tartrate (Ambien) 5 mg PO QHS PRN PRN Reason: Sleep Review of Systems All systems: negative Constitutional: fatigue, weakness Exam - Vital Signs Vital signs: Vital Signs Temp Pulse Resp BP Pulse Ox 98.5 F 72 16 186/81 98 06/12/19 09:25 06/12/19 09:25 06/12/19 09:25 06/12/19 09:25 06/12/19 09:25 - General Appearance General appearance: well-developed, well-nourished, appears stated age EENT: ATNC, PERRL, mucous membranes moist Neck: Present: neck supple Respiratory: Clear to Ascultation Heart: regular, S1S2 Gastrointestinal: Present: normoactive bowel sounds Integumentary: no rash, other (no edema ) Neurologic: no focal deficit, alert and oriented x3, strength 5/5, CN 3-12 intact Psychiatric: mood/affect appropriate, cooperative Results - Lab Results 06/12/19 11:33 06/12/19 11:33 Most recent lab results Calcium 8.9 mg/dL (8.4-10.2) 06/12/19 11:33 Assessment and Plan - Patient Problems (1) Diabetic ulcer of heel Current Visit: Yes Status: Acute Qualifiers: Laterality: left Non-pressure ulcer stage: limited to breakdown of skin Plan to address problem: s/p debridement , management as per surgery. (2) ESRD needing dialysis Current Visit: Yes Status: Acute Plan to address problem: HD performed last evening. cont HD on TTS schedule. stable for discharge from renal stand point (3) Hypertensive chronic kidney disease with stage 5 chronic kidney disease or end stage renal disease Current Visit: No Status: Chronic Plan to address problem: resume home BP regimen (4) Type 2 diabetes mellitus with diabetic chronic kidney disease Current Visit: No Status: Chronic Qualifiers: Chronic kidney disease stage: on chronic dialysis Plan to address problem: glucose control as per primary attending
[2019-06-13] MEDS: LOPRESSOR PO SCH ×2 (10:14→21:07)
[2019-06-13] MEDS: DEMADEX PO SCH (10:14)
[2019-06-13] MEDS: LONITEN PO SCH (10:16)
[2019-06-13] MEDS: SODIUM CHLORIDE FLUSH SYRINGE 10 ML IV SCH ×2 (10:16→21:01)
[2019-06-13] MEDS: DILAUDID IV PRN ×2 (10:26→14:54)
[2019-06-13] MEDS: ISOPTO ATROPINE OS SCH ×2 (10:41→21:01)
[2019-06-13] MEDS: PRED FORTE 1% OS SCH ×4 (10:41→21:01)
[2019-06-13] MEDS: VIGAMOX OS SCH ×4 (10:41→21:01)
[2019-06-13] MEDS ORDERED: HumaLOG SUB-Q SCH (11:30)
[2019-06-13] MEDS: HumaLOG SUB-Q SCH ×3 (11:30→21:06)
[2019-06-13] MEDS ORDERED: INSULIN LISPRO 7 UNIT SUB-Q SCH (11:30)
--- NOTE | 2019-06-13 11:35 | History and Physical Report ---
CHIEF COMPLAINT: Right heel ulcer, continuous bleeding. HISTORY OF PRESENT ILLNESS: A 54-year-old female with history of insulin-dependent diabetes; hypertension; end-stage renal disease on Tuesdays, and Saturdays; has chronic diabetic foot ulcer. The patient has a chronic foot ulcer on the right heel. The patient is being treated by surgery and the patient had a surgical debridement of the right heel yesterday, which is 06/11/2019. The patient woke up with bleeding from the ulcer this morning and unable to control it. Hence, she came to the Emergency Room for control of the right heel ulcer bleeding. The patient had dialysis until Tuesday. No shortness of breath. The patient follows with Dr. Beltran and Dr. Dunham. PAST MEDICAL HISTORY: Significant for insulin-dependent diabetes, hypertension, end-stage renal disease, hyperlipidemia, pancreatitis in the past. PAST SURGICAL HISTORY: Left arm fistula, ERCP and right knee replacement. SOCIAL HISTORY: Does not smoke. FAMILY HISTORY: Hypertension. CURRENT MEDICATIONS: On the chart including regular insulin 7 units before each meal and Procrit 10,000 units p.r.n., metoprolol 100 mg twice a day. REVIEW OF SYSTEMS: Significant for persistent bleeding from the right foot ulcer. Otherwise, review of systems negative. PHYSICAL EXAMINATION: GENERAL: Middle-aged female, cooperative during examination. VITAL SIGNS: Blood pressure is 173/94, temperature 97.9, pulse is 76, respirations 18, sats are 100%. HEENT: Unremarkable. Pupils are equal and reactive. NECK: Supple, no lymphadenopathy, no thyromegaly. LUNGS: Clear to auscultation and percussion. Good air entry. CARDIOVASCULAR: S1, S2 heard. No gallop, no murmur, no rub. Apical impulse in left fifth intercostal space and midclavicular line. ABDOMEN: Soft and benign. No hepatosplenomegaly, no guarding, no rigidity. Hernial orifices are normal. EXTREMITIES: Good pedal pulses. No pedal edema. Right foot ulcer active bleeding present. Ulcer is about 3 cm x 3 cm with 1 cm in depth. CENTRAL NERVOUS SYSTEM: Alert and oriented x 4. Nonfocal exam. LABORATORY DATA: Labs are significant for hemoglobin of 9.5 and hematocrit of 29.9, platelet count is normal. Sodium is 136, potassium is 5.2, chloride is 92.5, BUN and creatinine is 64 and 7.0. Hep profile is negative. ASSESSMENT AND PLAN: 1. Right foot ulcer with continuous bleeding. The patient had pressure dressing in place. Surgical consult requested. Wound care consult requested. 2. Volume overload secondary to missed dialysis. Continue hemodialysis. 3. Insulin-dependent diabetes. Continue home insulin and coverage. 4. Hypertension. Continue antihypertensives. 5. Anemia secondary to end-stage renal disease. Epoetin as per schedule. 6. Hyperkalemia, mild that should correct with dialysis. 7. Hyponatremia, mild. 8. Deep venous thrombosis prophylaxis, heparin 5000 q.12. In summary, the patient has persistent right heel ulcer, which is bleeding. End-stage renal disease, hypertension, insulin-dependent diabetes, and hyperlipidemia. JOB# [id number] SANDRA/ADRIENNE
--- NOTE | 2019-06-13 13:16 | Progress Note ---
Assessment and Plan Assessment and plan: --Intractable nausea and vomiting; Antiemetics, IV fluids, Protonix and supportive care If no improvement, check abdominal ultrasound/CT abdomen -- Diabetic ulcer of heel Current Visit: Yes Status: Acute . Plan to address problem: s/p debridement , management as per surgery. Surgery recommended to follow outpatient wound care -- ESRD on HD Current Visit: Yes Status: Acute Plan to address problem: Nephrology following HD per schedule. cont HD on TTS schedule. -- Hypertensive urgency Current Visit: No Status: Chronic Plan to address problem: Continue current antihypertensives and when necessary medications resume home BP regimen -- Type 2 diabetes mellitus with diabetic chronic kidney disease Current Visit: No Status: Chronic Plan to address problem: Accu-Chek sliding scale coverage and ADA diet Insulin as needed Monitor closely and adjust the management as needed Plan of care reviewed for the patient and her nurse Possible discharge home tomorrow if stable History Interval history: Complaints of severe nausea or vomiting abdominal pain Unable to keep anything down Patient is in mild distress alert awake oriented 3 Vital signs noted Hospitalist Physical - Constitutional Vitals: Temp Pulse Resp BP Pulse Ox 98.5 F 66 18 127/63 95 06/13/19 12:02 06/13/19 12:02 06/13/19 12:02 06/13/19 12:02 06/13/19 12:02 General appearance: Present: mild distress, well-nourished - EENT Eyes: Present: PERRL, EOM intact - Neck Neck: Present: supple, normal ROM - Respiratory Respiratory effort: normal Respiratory: bilateral: diminished, negative: rales, rhonchi, wheezing - Cardiovascular Rhythm: regular Heart Sounds: Present: S1 & S2 - Extremities Extremities: no ischemia, No edema - Abdominal General gastrointestinal: soft, non-tender, non-distended, normal bowel sounds - Integumentary Integumentary: Present: clear, warm - Psychiatric Psychiatric: appropriate mood/affect, cooperative - Neurologic Neurologic: CNII-XII intact, moves all extremities Results - Labs CBC & Chem 7: 06/12/19 11:33 06/12/19 11:33 Labs: Laboratory Last Values WBC 10.8 K/mm3 (4.5-11.0) 06/12/19 11:33 RBC 4.13 M/mm3 (3.65-5.03) 06/12/19 11:33 Hgb 9.5 gm/dl (10.1-14.3) L 06/12/19 11:33 Hct 29.9 % (30.3-42.9) L 06/12/19 11:33 MCV 72 fl (79-97) L 06/12/19 11:33 MCH 23 pg (28-32) L 06/12/19 11:33 MCHC 32 % (30-34) 06/12/19 11:33 RDW 19.4 % (13.2-15.2) H 06/12/19 11:33 Plt Count 227 K/mm3 (140-440) 06/12/19 11:33 Add Manual Diff Complete 06/12/19 11:33 Total Counted 100 06/12/19 11:33 Seg Neuts % (Manual) 76.0 % (40.0-70.0) H 06/12/19 11:33 0 % 06/12/19 11:33 13.0 % (13.4-35.0) L 06/12/19 11:33 Reactive Lymphs % (Man) 1.0 % 06/12/19 11:33 3.0 % (0.0-7.3) 06/12/19 11:33 7.0 % (0.0-4.3) H 06/12/19 11:33 0 % (0.0-1.8) 06/12/19 11:33 0 % 06/12/19 11:33 0 % 06/12/19 11:33 0 % 06/12/19 11:33 0 % 06/12/19 11:33 Nucleated RBC % Not Reportable 06/12/19 11:33 Seg Neutrophils # Man 8.2 K/mm3 (1.8-7.7) H 06/12/19 11:33 Band Neutrophils # 0.0 K/mm3 06/12/19 11:33 1.4 K/mm3 (1.2-5.4) 06/12/19 11:33 Abs React Lymphs (Man) 0.1 K/mm3 06/12/19 11:33 0.3 K/mm3 (0.0-0.8) 06/12/19 11:33 0.8 K/mm3 (0.0-0.4) H 06/12/19 11:33 0.0 K/mm3 (0.0-0.1) 06/12/19 11:33 0.0 K/mm3 06/12/19 11:33 0.0 K/mm3 06/12/19 11:33 0.0 K/mm3 06/12/19 11:33 Blast Cells # 0.0 K/mm3 06/12/19 11:33 WBC Morphology Not Reportable 06/12/19 11:33 Hypersegmented Neuts Not Reportable 06/12/19 11:33 Hyposegmented Neuts Not Reportable 06/12/19 11:33 Hypogranular Neuts Not Reportable 06/12/19 11:33 Not Reportable 06/12/19 11:33 Not Reportable 06/12/19 11:33 Not Reportable 06/12/19 11:33 Not Reportable 06/12/19 11:33 Not Reportable 06/12/19 11:33 Not Reportable 06/12/19 11:33 Consistent w auto 06/12/19 11:33 Not Reportable 06/12/19 11:33 Plt Clumps, EDTA Not Reportable 06/12/19 11:33 Not Reportable 06/12/19 11:33 Not Reportable 06/12/19 11:33 Not Reportable 06/12/19 11:33 Plt Morphology Comment Not Reportable 06/12/19 11:33 RBC Morphology Not Reportable 06/12/19 11:33 Dimorphic RBCs Not Reportable 06/12/19 11:33 Not Reportable 06/12/19 11:33 1+ 06/12/19 11:33 2+ 06/12/19 11:33 1+ 06/12/19 11:33 Not Reportable 06/12/19 11:33 Not Reportable 06/12/19 11:33 Not Reportable 06/12/19 11:33 Not Reportable 06/12/19 11:33 Not Reportable 06/12/19 11:33 2+ 06/12/19 11:33 Not Reportable 06/12/19 11:33 Not Reportable 06/12/19 11:33 Not Reportable 06/12/19 11:33 Not Reportable 06/12/19 11:33 Not Reportable 06/12/19 11:33 Not Reportable 06/12/19 11:33 Not Reportable 06/12/19 11:33 Not Reportable 06/12/19 11:33 Not Reportable 06/12/19 11:33 Acanthocytes (Spur) Not Reportable 06/12/19 11:33 Rouleaux Not Reportable 06/12/19 11:33 Not Reportable 06/12/19 11:33 Not Reportable 06/12/19 11:33 Not Reportable 06/12/19 11:33 Not Reportable 06/12/19 11:33 Hem Pathologist Commnt No 06/12/19 11:33 PT 13.8 Sec. (12.2-14.9) 06/12/19 11:33 INR 1.09 (0.87-1.13) 06/12/19 11:33 APTT 37.5 Sec. (24.2-36.6) H 06/12/19 11:33 Sodium 136 mmol/L (137-145) L 06/12/19 11:33 Potassium 5.2 mmol/L (3.6-5.0) H 06/12/19 11:33 Chloride 92.5 mmol/L (98-107) L 06/12/19 11:33 Carbon Dioxide 22 mmol/L (22-30) 06/12/19 11:33 27 mmol/L 06/12/19 11:33 BUN 64 mg/dL (7-17) H 06/12/19 11:33 7.0 mg/dL (0.7-1.2) H 06/12/19 11:33 Estimated GFR 7 ml/min 06/12/19 11:33 9 % 06/12/19 11:33 Glucose 99 mg/dL (65-100) 06/12/19 11:33 POC Glucose 238 (70-105) H 06/13/19 11:30 6.0 % (4-6) 06/13/19 07:57 Calcium 8.9 mg/dL (8.4-10.2) 06/12/19 11:33 Hepatitis A IgM Ab Non-reactive (NonReactive) 06/12/19 16:29 Hep Bs Antigen Non-reactive (Negative) 06/12/19 16:29 Hep B Core IgM Ab Non-reactive (NonReactive) 06/12/19 16:29 Non-reactive (NonReactive) 06/12/19 16:29 Active Medications - Current Medications Current Medications: Generic Name Dose Route Start Last Admin Trade Name Freq PRN Reason Stop Dose Admin Acetaminophen 650 mg 06/13/19 07:45 Tylenol PO Q4H PRN Pain MILD(1-3)/Fever >100.5/CASTILLO Atropine Sulfate 1 drops 06/13/19 10:00 06/13/19 10:41 Isopto Atropine OS Not Given BID FATMATA Epoetin Jacoby 10,000 unit 06/13/19 07:41 Procrit IV FRANCOIS PRN hemodialysis Hydralazine HCl 10 mg 06/13/19 01:03 Apresoline IV Q4H PRN Blood Pressure Hydromorphone HCl 0.5 mg 06/13/19 07:45 06/13/19 10:26 Dilaudid IV 0.5 mg Q3H PRN Administration Pain , Severe (7-10) Sodium Chloride 100 mls @ 999 mls/hr 06/12/19 15:59 Nacl 0.9% IV FRANCOIS PRN Hypotension Insulin Glargine 15 units 06/13/19 10:00 06/13/19 10:15 Lantus SUB-Q 15 units DAILY FATMATA Administration Insulin Human Lispro 0 unit 06/13/19 11:30 06/13/19 11:30 Humalog SUB-Q 3 unit ACHS FATMATA Administration Protocol Insulin Human Lispro 7 unit 06/13/19 11:30 06/13/19 11:30 Humalog SUB-Q 7 unit AC FATMATA Administration Metoclopramide HCl 5 mg 06/13/19 07:45 Reglan IV Q6H PRN Nausea And Vomiting Metoprolol Tartrate 100 mg 06/13/19 10:00 06/13/19 10:14 Lopressor PO 100 mg BID FATMATA Administration Minoxidil 10 mg 06/13/19 10:00 06/13/19 10:16 Loniten PO 10 mg DAILY FATMATA Administration Moxifloxacin HCl 1 drops 06/13/19 10:00 06/13/19 10:41 Vigamox OS Not Given 4XD FATMATA Ondansetron HCl 4 mg 06/12/19 20:51 Zofran IV FRANCOIS PRN Nausea Ondansetron HCl 4 mg 06/13/19 07:45 06/13/19 10:25 Zofran IV 4 mg Q8H PRN Administration Nausea And Vomiting Oxycodone/Acetaminophen 1 tab 06/13/19 01:58 Percocet 5/325 PO Q6H PRN Pain, Moderate (4-6) Prednisolone Acetate 1 drops 06/13/19 10:00 06/13/19 10:41 Pred Forte 1% OS Not Given 4XD FATMATA Sodium Chloride 10 ml 06/13/19 10:00 06/13/19 10:16 Sodium Chloride Flush Syringe 10 Ml IV 10 ml BID FATMATA Administration Sodium Chloride 10 ml 06/13/19 07:45 Sodium Chloride Flush Syringe 10 Ml IV PRN PRN LINE FLUSH Torsemide 40 mg 06/13/19 10:00 06/13/19 10:14 Demadex PO 40 mg DAILY FATMATA Administration Zolpidem Tartrate 5 mg 06/13/19 21:00 Ambien PO QHS PRN Sleep
[2019-06-13] MEDS ORDERED: D50W (25GM) Syringe IV ONE (17:25)
[2019-06-13] MEDS ORDERED: AMBIEN PO PRN (21:00)
[2019-06-13] MEDS: REGLAN IV PRN (21:00)
[2019-06-14] MEDS: DILAUDID IV PRN (04:20)
[2019-06-14 05:08] LABS: Hemoglobin 10.2 gm/dl (10.1-14.3); Mean Corpuscular HGB Conc 33 % (30-34); Mean Corpuscular Volume 72 fl (79-97); Platelet Count 312 K/mm3 (140-440)
[2019-06-14 05:31] LABS: Albumin 3.7 g/dL (3.9-5); Calcium 9.1 mg/dL (8.4-10.2)
[2019-06-14] MEDS: REGLAN IV PRN (06:53)
[2019-06-14] MEDS: HumaLOG SUB-Q SCH ×2 (07:30→15:13)
[2019-06-14 08:31] LABS: Anisocytosis 1+; Basophils % (Manual) 0 % (0.0-1.8); Hypochromasia 1+; Platelet Estimate Consistent w Auto; Poikilocytosis 2+; Target Cells 2+; Total Cells Counted 100
--- NOTE | 2019-06-14 15:07 | Discharge Summary ---
Providers - Providers Date of Admission: 06/12/19 14:20 Date of discharge: 06/14/19 Attending physician: LALA INIGUEZ 06/12/19 11:12 Consult to Wound/ET Nurse [CONS] Stat Reason For Exam: wound eval 06/12/19 11:34 Consult to Physician [CONS] Urgent Comment: Consulting Provider: OSIRIS RAMOS Physician Instructions: Reason For Exam: left heel wound bleeding 06/12/19 13:30 Consult to Physician [CONS] Urgent Comment: Consulting Provider: ALBERTA FAITH Physician Instructions: Reason For Exam: esrd needing dialysis 06/13/19 Consult to Case Management [CONS] Routine Services Needed at Discharge: Home Health Services Notified:: jannet [facility] Reason for admission: bleeding from heel ulcer Condition: Stable Hospital course: 54-year-old female patient with end-stage renal disease on hemodialysis chronic left heel wound follow with surgeon at outpatient wound care status post debridement decently was admitted through emergency room with history of bleeding from the heel ulcer Patient was evaluated and admitted subsequently seen by surgery and received wound care, cleared for discharge, evaluation by wholesale buyer, and event hemodialysis per schedule Patient was ready to be discharged yesterday however Patient had episode of hypoglycemia and intractable nausea vomiting, discharge was held managed appropriately, insulin was held , managed with antiemetics and pain medications and supportive care Today patient is comfortable today , received hemodialysis, no new complaints Alert awake oriented 3, Vital signs stable, Physical examination unremarkable Cleared by surgery and renal for discharge and follow-up with them as outpatient per schedule Patient is stable at discharge Discharge Diagnosis: --Intractable nausea and vomiting; Antiemetics, IV fluids, Protonix and supportive care If no improvement, check abdominal ultrasound/CT abdomen -- Diabetic ulcer of heel Current Visit: Yes Status: Acute . Plan to address problem: s/p debridement , management as per surgery. Surgery recommended to follow outpatient wound care -- ESRD on HD Current Visit: Yes Status: Acute Plan to address problem: Nephrology following HD per schedule. cont HD on TTS schedule. -- Hypertensive urgency Current Visit: No Status: Chronic Plan to address problem: Continue current antihypertensives and when necessary medications resume home BP regimen -- Type 2 diabetes mellitus with diabetic chronic kidney disease Current Visit: No Status: Chronic Plan to address problem: Accu-Chek sliding scale coverage and ADA diet Insulin as needed Monitor closely and adjust the management as needed Plan of care reviewed for the patient and her nurse Possible discharge home tomorrow if stable Disposition: DC-01 TO HOME OR SELFCARE Time spent for discharge: 32 min Core Measure Documentation - Palliative Care Palliative Care/ Comfort Measures: Not Applicable - Core Measures Any of the following diagnoses?: none Exam - Constitutional Vitals: Temp Pulse Resp BP Pulse Ox 99.0 F 84 16 128/61 99 06/14/19 13:45 06/14/19 13:45 06/14/19 13:45 06/14/19 13:45 06/14/19 01:07 General appearance: Present: no acute distress, well-nourished - EENT Eyes: Present: PERRL, EOM intact - Neck Neck: Present: supple, normal ROM - Respiratory Respiratory effort: normal Respiratory: bilateral: diminished, negative: rales, rhonchi, wheezing - Cardiovascular Rhythm: regular Heart Sounds: Present: S1 & S2 - Extremities Extremities: no ischemia, No edema - Abdominal General gastrointestinal: Present: soft, non-tender, non-distended, normal bowel sounds - Integumentary Integumentary: Present: clear, warm - Musculoskeletal Musculoskeletal: strength equal bilaterally - Psychiatric Psychiatric: appropriate mood/affect, cooperative - Neurologic Neurologic: CNII-XII intact, moves all extremities Plan Activity: advance as tolerated, fall precautions Diet: diabetic, renal Additional Instructions: Follow renal and HD per schedule [facility]TS [facility] EL[facility]AB[facility] [Primary Care Provider] - 7 Days ALBERTA FAITH MD [Staff Physician] - 7 Days Prescriptions: oxyCODONE /ACETAMINOPHEN [Percocet 5/325 mg] 1 tab PO BID PRN #6 tablet PRN Reason: Pain, Moderate (4-6) Ondansetron [Zofran Odt] 4 mg PO Q8HR #15 tab.anthony
[2019-06-14] MEDS: ISOPTO ATROPINE OS SCH (15:12)
[2019-06-14] MEDS: VIGAMOX OS SCH ×2 (15:13→15:14)
[2019-06-14] MEDS: PRED FORTE 1% OS SCH ×2 (15:13→15:14)
[2019-06-14 15:21] VITALS: BP 113/60
[2019-06-14] MEDS: LONITEN PO SCH (15:23)
[2019-06-14] MEDS: LOPRESSOR PO SCH (15:23)
[2019-06-14] MEDS: DEMADEX PO SCH (15:23)
== END 2019-06-14 15:30 | disposition home or self-care (01) ==
LOC: ED 09:12 → 3A 14:20
PROVIDERS: ADMIT Internal Medicine; ATTEND Internal Medicine
DX: L97.519 Non-pressure chronic ulcer of other part of right foot with unspecified severity (principal); I12.0 Hypertensive chronic kidney disease with stage 5 chronic kidney disease or end stage renal disease; N18.6 End stage renal disease; E87.71 Transfusion associated circulatory overload; E87.5 Hyperkalemia; E87.1 Hypo-osmolality and hyponatremia; D63.1 Anemia in chronic kidney disease; E11.22 Type 2 diabetes mellitus with diabetic chronic kidney disease
CPT/HCPCS: 36415; 80048; 80053; 80074; 82962; 83036; 85007; 85025; 85610; 85730; 87116; 96372; 96374; 96375; 96376; 99284; G0257; G0378; J1170; J2405; J2765; J7030; J1815

== ENCOUNTER 2019-06-15 08:01 | Outpatient (CLI) | payer MEDICARE | END 2019-06-15 08:02 | disposition home or self-care (01) | LOC: WOUND 08:01 | PROVIDERS: ATTEND Surgery | DX: E11.621 Type 2 diabetes mellitus with foot ulcer (principal); L97.423 Non-pressure chronic ulcer of left heel and midfoot with necrosis of muscle; L89.899 Pressure ulcer of other site, unspecified stage; L97.522 Non-pressure chronic ulcer of other part of left foot with fat layer exposed; K21.9 Gastro-esophageal reflux disease without esophagitis; I10 Essential (primary) hypertension; Z87.891 Personal history of nicotine dependence; Z99.2 Dependence on renal dialysis | CPT/HCPCS: 99213; G0463 ==

== ENCOUNTER 2019-06-18 10:40 | Outpatient (CLI) | payer MEDICARE ==
[2019-06-18] MEDS ORDERED: NACL 0.9% IR PRN (10:59)
[2019-06-18] MEDS ORDERED: SILVER NITRATE TP ONE (11:27)
[2019-06-18] MEDS ORDERED: XYLOCAINE TOPICAL 4% TP ONE (11:30)
== END 2019-06-18 10:41 | disposition home or self-care (01) ==
LOC: WOUND 10:40
PROVIDERS: ATTEND Surgery
DX: E11.621 Type 2 diabetes mellitus with foot ulcer (principal); L97.424 Non-pressure chronic ulcer of left heel and midfoot with necrosis of bone; L89.899 Pressure ulcer of other site, unspecified stage; L97.522 Non-pressure chronic ulcer of other part of left foot with fat layer exposed; K21.9 Gastro-esophageal reflux disease without esophagitis; I10 Essential (primary) hypertension; Z87.891 Personal history of nicotine dependence; Z99.2 Dependence on renal dialysis
CPT/HCPCS: 87075; 87076; 87116; 87186

== ENCOUNTER 2019-06-22 12:19 | Inpatient (IN) | payer MEDICARE ==
[2019-06-22] MEDS ORDERED: NACL 0.9% IV ONE (12:29)
[2019-06-22] MEDS ORDERED: NACL 0.9% 1000 ML IV ONE (12:29)
[2019-06-22] MEDS ORDERED: VANCOMYCIN IV ONE (12:29)
[2019-06-22] MEDS ORDERED: PHARMACY CONSULT (FOR PT FALL) PO ONE (12:32)
--- NOTE | 2019-06-22 12:36 | Event Note ---
ED Screening Note ED Screening Note: GANGRENE PER NOTE SENT WITH PT ENDORSES CHILLS/WEAKNESS/FATIGUE DIABETIC FOOT WOUND FAILED OUTPT MANAGEMENT WITH DR YOUNG SENT FROM MD OFFICE- SEE NOTES SENT WITH PT ESRD ON HD HD YESTERDAY HIGH RISK SEPSIS GIVEN DM/ESRD This initial assessment/diagnostic orders/clinical plan/treatment(s) is/are subject to change based on patients health status, clinical progression and re- assessment by fellow clinical providers in the ED. Further treatment and workup at subsequent clinical providers discretion. Patient/guardian urged not to elope from the ED as their condition may be serious if not clinically assessed and managed. Initial orders include: SEPTIC WORK UP LIKELY ADMIT
[2019-06-22] MEDS ORDERED: MAXIPIME/NS 2 GM/100 ML 2 GM/100 ML BAG IV SCH (13:00)
[2019-06-22] MEDS ORDERED: VANCOMYCIN PHARMACY TO DOSE IV SCH (13:00)
[2019-06-22] MEDS ORDERED: DIFLUCAN 200 MG/100 ML BAG IV SCH ×3 (13:00→15:00)
[2019-06-22 13:01] LABS: Hematocrit 29.9 % (30.3-42.9); Hemoglobin 9.6 gm/dl (10.1-14.3); Mean Corpuscular HGB Conc 32 % (30-34); Mean Corpuscular Volume 72 fl (79-97); Platelet Count 295 K/mm3 (140-440); Red Blood Count 4.15 M/mm3 (3.65-5.03); Red Cell Distribution Width 18.8 % (13.2-15.2)
[2019-06-22 13:13] LABS: Albumin 3.5 g/dL (3.9-5); Calcium 8.7 mg/dL (8.4-10.2)
[2019-06-22] MEDS ORDERED: VANCOMYCIN 1,500 MG in NACL 0.9% 500 ML 500 ML IV ONE (13:30)
[2019-06-22 13:46] LABS: Basophils % (Manual) 0 % (0.0-1.8); Total Cells Counted 100
[2019-06-22 13:47] LABS: Hypochromasia 1+
[2019-06-22 13:58] LABS: Target Cells 1+
[2019-06-22 13:59] LABS: Anisocytosis 1+; Platelet Estimate Consistent w Auto; Tear Drop Cells Few
[2019-06-22] MEDS ORDERED: DILAUDID IV ONE ×2 (14:20→18:37)
[2019-06-22] MEDS ORDERED: NACL 0.9% 1000 ML 2,000 ML ONE (14:36)
[2019-06-22] MEDS ORDERED: ZOFRAN IV ONE (14:41)
[2019-06-22] MEDS: MAXIPIME IV SCH ×2 (14:48→16:21)
[2019-06-22] MEDS: NS IV SCH ×2 (14:48→16:21)
--- NOTE | 2019-06-22 15:03 | Emergency Department Report ---
HPI - General Chief Complaint: Extremity Problem,Nontraumatic Time Seen by Provider: 06/22/19 12:28 - HPI HPI: 54-year-old -Hungarian female presents to the emergency department, sent in by Dr. Moore (infectious disease), with a complaint of progressive gangrene of the left great toe and heel. The patient has been seen here in the past for some skin infections and ulcerations. The patient says, "Dr. Moore took one look at my foot and told me to go to the emergency department." She has a history of diabetes, hypertension and end-stage renal disease on hemodialysis on Tuesday//Tuesday. Her air conditioning supervisor is Dr. Salazar. The patient was sent in with a list of labs and antibiotics and treatment recommended by Dr. Moore. Patient denies any known fever but says that sometimes she will get sweats. The patient says she is otherwise compliant with all of her medications. ED Past Medical Hx - Past Medical History Previous Medical History?: Yes Hx Hypertension: Yes Hx Congestive Heart Failure: No Hx Diabetes: Yes Hx Renal Disease: Yes Hx Asthma: No Hx COPD: No Additional medical history: HLD, pancreatitis - Surgical History Past Surgical History?: Yes Additional Surgical History: Left arm Fistula, ERCP, right knee replacement - Social History Smoking Status: Never Smoker Substance Use Type: None - Medications Home Medications: Home Medications Medication Instructions Recorded Confirmed Last Taken Type Insulin Lispro [Humalog 100 7 units SUB-Q TIDAC 04/20/19 06/22/19 06/22/19 History UNITS/ML Kwikpen] Insulin Glargine [Lantus VIAL] 15 unit SUB-Q DAILY 30 Days units 04/25/19 06/22/19 06/22/19 Rx Metoprolol [Lopressor TAB] 100 mg PO BID #60 tablet 04/25/19 06/22/19 06/22/19 Rx Zolpidem [Ambien] 5 mg PO QHS PRN #30 tablet 04/25/19 06/22/19 06/11/19 Rx Ondansetron [Zofran Odt] 4 mg PO Q8HR #15 tab.rapdis 06/14/19 06/22/19 06/07/19 Rx oxyCODONE /ACETAMINOPHEN [Percocet 1 tab PO BID PRN #6 tablet 08/06/22/19 06/14/19 Rx 5/325 mg] Torsemide [Demadex] 60 mg PO DAILY 06/22/19 06/22/19 06/22/19 History ED Review of Systems ROS: Stated complaint: L FOOT PAIN Other details as noted in HPI Comment: All other systems reviewed and negative Constitutional: diaphoresis. denies: fever Eyes: denies: eye pain, vision change ENT: denies: ear pain, throat pain Respiratory: denies: cough, shortness of breath Cardiovascular: denies: chest pain, palpitations Gastrointestinal: denies: abdominal pain, vomiting Genitourinary: denies: dysuria, discharge Musculoskeletal: arthralgia. denies: back pain Skin: lesions. denies: pruritus Neurological: denies: headache, weakness Physical Exam - Physical Exam Vital Signs: Vital Signs 06/22/19 12:28 Temperature 98.4 F Pulse Rate 83 Respiratory 16 Rate Blood Pressure 180/76 O2 Sat by Pulse 98 Oximetry Physical Exam: GENERAL: The patient is well-developed well-nourished. HENT: Normocephalic. Atraumatic. Patient has moist mucous membranes. EYES: Extraocular motions are intact. NECK: Supple. Trachea is midline. CHEST/LUNGS: Clear to auscultation. There is no respiratory distress noted. HEART/CARDIOVASCULAR: Regular. There is no tachycardia. There is no murmur. ABDOMEN: Abdomen is soft, nontender. Patient has normal bowel sounds. There is no abdominal distention. SKIN: There is a stage 3-4 ulceration to the plantar portion of the left great toe. There is also a severe stage IV ulceration/wound to the left heel that those down towards the calcaneus. NEURO: The patient is awake, alert, and oriented. The patient is cooperative. The patient has no focal neurologic deficits. Normal speech. MUSCULOSKELETAL: Tenderness to palpation to the left great toe and left heel. ED Course Vital Signs 06/22/19 12:28 Temperature 98.4 F Pulse Rate 83 Respiratory 16 Rate Blood Pressure 180/76 O2 Sat by Pulse 98 Oximetry ED Medical Decision Making - Lab Data Result diagrams: 06/22/19 12:41 06/22/19 12:41 - Radiology Data Radiology results: image reviewed interpreted by me: X-ray of the left foot does not show any signs of osteomyelitis, fracture or dislocation. - Medical Decision Making This patient was sent in by her infectious disease physician for worsening left great toe and heel ulcerations. She has end-stage renal disease, dialysis. Patient is afebrile. No leukocytosis, however the patient was started on the antibiotics recommended by infectious disease. X-ray does not show any signs of osteomyelitis. She will be admitted to the hospital for further evaluation and treatment was accepted for admission by the hospitalist about every. - Differential Diagnosis diabetic ulcer, osteomyelitis, cellulitis, sepsis Critical Care Time: No Critical care attestation.: If time is entered above; I have spent that time in minutes in the direct care of this critically ill patient, excluding procedure time. ED Disposition Clinical Impression: End-stage renal disease on hemodialysis, Progressive cutaneous gangrene Diabetic ulcer of heel Qualifiers: Diabetes mellitus type: type 1 Laterality: left Non-pressure ulcer stage: unspecified non-pressure ulcer stage Qualified Code(s): E10.621 - Type 1 diabetes mellitus with foot ulcer; L97.429 - Non-pressure chronic ulcer of left heel and midfoot with unspecified severity Diabetic ulcer of toe Qualifiers: Diabetes mellitus type: other specified (including DANDRE) Laterality: left Non- pressure ulcer stage: unspecified non-pressure ulcer stage Qualified Code(s): E13.621 - Other specified diabetes mellitus with foot ulcer; L97.529 - Non- pressure chronic ulcer of other part of left foot with unspecified severity Disposition: OP ADMIT IP TO THIS HOSP Is pt being admited?: Yes Condition: Fair Instructions: Diabetes Mellitus Type 2 in Adults (ED) Time of Disposition: 20:00
--- NOTE | 2019-06-22 15:25 | XRay Report ---
LEFT FOOT, 3 VIEWS INDICATION: left foot pain, ulcer/wound/infection. COMPARISON: None. IMPRESSION: There is severe diffuse soft tissue swelling. A large soft tissue ulceration is noted i nferior to the calcaneus measuring up to 7 cm in diameter. This ulceration appears to extend all the way to bone although there is no convincing bony destruction seen on x-ray. If further evaluation for osteomyelitis is needed, MRI preferably with contrast is recommended. No evidence for fracture or jose armando ne lesion. Diffuse vascular calcifications are noted consistent with peripheral vascular disease. Signer Name: Trevon Martinez Jr, MD Signed: 06/22/2019 3:21 PM Workstation Name: [id number]
--- NOTE | 2019-06-22 16:28 | History and Physical Report ---
History of Present Illness Chief complaint: My doctor told me to come to the hospital History of present illness: 54 YO Female with HTN, DM, HLD, Chronic Pancreatitis, ESRD on HD(T,R,Sa) presents to ED for evaluation. Pt states that she has experienced pain, swelling, and foul smell coming from her left foot over the past 3 days with persistently worsening symptoms over the same time frame. PT was seen in the wound clinic today and found to have a wound infection. Pt was instructed to seek further care. Pt transported to [facility] via private vehicle. Pt seen and evaluated in ED and found to have ESRD as well as Left heel ulcer with cellulitis. Pt initiated on IV antibiotic therapy and admitted to medical floor. Pt denies fever, chills, CP, Palpitations, NVD, Trauma, or recent ill contacts. Prior admission on 06/12/19 reviewed. ID consulted in ED. Wound care consulted in ED. Past History Past Medical History: diabetes, ESRD, hypertension, hyperlipidemia, other (Chronic Pancreatitis) Past Surgical History: Other (AV fistula) Social history: . denies: smoking, alcohol abuse, prescription drug abuse Family history: diabetes, hypertension Medications and Allergies Allergies Allergy/AdvReac Type Severity Reaction Status Date / Time amlodipine Allergy Itching Verified 04/20/19 11:49 losartan Allergy Itching Verified 04/20/19 11:49 sulfamethoxazole Allergy Rash Verified 04/20/19 11:49 [From Bactrim] trimethoprim [From Bactrim] Allergy Rash Verified 04/20/19 11:49 morphine AdvReac Vomiting Verified 04/20/19 11:49 Home Medications Medication Instructions Recorded Confirmed Last Taken Type Insulin Lispro [Humalog 100 7 units SUB-Q TIDAC 04/20/19 06/22/19 06/22/19 History UNITS/ML Kwikpen] Insulin Glargine [Lantus VIAL] 15 unit SUB-Q DAILY 30 Days units 04/25/1906/22/19 Rx Metoprolol [Lopressor TAB] 100 mg PO BID #60 tablet 04/25/19 06/22/19 06/22/19 R x Zolpidem [Ambien] 5 mg PO QHS PRN #30 tablet 04/25/19 06/22/19 06/11/19 Rx Ondansetron [Zofran Odt] 4 mg PO Q8HR #15 tab.rapdis 06/14/19 06/22/19 06/07/19 Rx oxyCODONE /ACETAMINOPHEN [Percocet 1 tab PO BID PRN #6 tablet 06/14/19 06/22/19 06/14/19 Rx 5/325 mg] Torsemide [Demadex] 60 mg PO DAILY 06/22/19 06/22/19 06/22/19 History Active Meds: Active Medications Cefepime HCl (Maxipime/Ns 1 Gm/100 Ml) 500 mg in 50 mls @ 100 mls/hr IV Q24H [facility] Last Admin: 06/22/19 16:21 Dose: Not Given Documented by: Fluconazole (Diflucan) 200 mg in 100 mls @ 100 mls/hr IV Q72HR [facility]; Protocol Review of Systems Constitutional: no weight loss, no weight gain, no fever, no chills Ears, nose, mouth and throat: no ear pain, no ear discharge, no tinnitis, no decreased hearing, no nose pain, no nasal congestion Breasts: no change in shape, no swelling, no mass Cardiovascular: no chest pain, no orthopnea, no palpitations, no rapid/irregular heart beat, no edema, no syncope Respiratory: no cough, no cough with sputum, no excessive sputum, no hemoptysis, no shortness of breath Gastrointestinal: no nausea, no vomiting, no diarrhea, no constipation, no change in bowel habits Genitourinary Female: no pelvic pain, no flank pain, no menorrhagia, no dysuria, no urinary frequency, no urgency Rectal: no pain, no incontinence, no bleeding Musculoskeletal: no neck stiffness, no neck pain, no shooting arm pain, no arm numbness/tingling, no low back pain Integumentary: no rash, no pruritis, no redness, no sores, no jaundice Neurological: no head injury, no transient paralysis, no paralysis, no weakness, no parathesias, no numbness, no tingling Psychiatric: no anxiety, no memory loss, no change in sleep habits, no sleep disturbances, no change in appetite, no suicidal ideation Endocrine: no cold intolerance, no heat intolerance, no polyphagia, no excessive thirst, no excessive sweating Hematologic/Lymphatic: no easy bruising, no easy bleeding, no lymphadenopathy, no lymphedema Allergic/Immunologic: no urticaria, no allergic rhinitis, no wheezing, no persistent infections, no anaphylaxis, no angioedema Exam - Constitutional Vitals: Temp Pulse Resp BP Pulse Ox 98.4 F 83 16 180/76 98 06/22/19 12:28 06/22/19 12:28 06/22/19 12:28 06/22/19 12:28 06/22/19 12:28 General appearance: Present: mild distress - EENT Eyes: Present: PERRL ENT: hearing intact, clear oral mucosa - Neck Neck: Present: supple, normal ROM - Respiratory Respiratory effort: normal Respiratory: bilateral: CTA - Cardiovascular Heart Sounds: Present: S1 & S2. Absent: rub, click - Extremities Extremities: pulses symmetrical Extremity abnormal: edema, ulceration, erythema, other (foul smelling, necrotic tissue to left heel) Peripheral Pulses: within normal limits - Abdominal General gastrointestinal: Present: soft, non-tender, non-distended, normal bowel sounds Female genitourinary: Present: normal - Integumentary Integumentary: Present: clear, warm, dry - Musculoskeletal Musculoskeletal: gait normal, strength equal bilaterally - Psychiatric Psychiatric: appropriate mood/affect, intact judgment & insight - Neurologic Neurologic: CNII-XII intact, moves all extremities Results - Labs CBC & Chem 7: 06/22/19 12:41 06/22/19 12:41 Labs: Abnormal lab results 06/22/19 06/22/19 06/22/19 Range/Units 12:41 12:41 12:41 Hgb 9.6 L (10.1-14.3) gm/dl Hct 29.9 L (30.3-42.9) % MCV 72 L (79-97) fl MCH 23 L (28-32) pg RDW 18.8 H (13.2-15.2) % Seg Neuts % (Manual) 72.0 H (40.0-70.0) % Monocytes % (Manual) 8.0 H (0.0-7.3) % Eosinophils % (Manual) 5.0 H (0.0-4.3) % Sodium 135 L (137-145) mmol/L Chloride 89.9 L (98-107) mmol/L BUN 35 H (7-17) mg/dL Creatinine 4.9 H (0.7-1.2) mg/dL Glucose 284 H (65-100) mg/dL Lactic Acid 2.50 H* (0.7-2.0) mmol/L Alkaline Phosphatase 559 H (35-129) units/L C-Reactive Protein (0.00-1.30) mg/dL Total Protein 8.6 H (6.3-8.2) g/dL Albumin 3.5 L (3.9-5) g/dL 06/22/19 Range/Units 12:41 Hgb (10.1-14.3) gm/dl Hct (30.3-42.9) % MCV (79-97) fl MCH (28-32) pg RDW (13.2-15.2) % Seg Neuts % (Manual) (40.0-70.0) % Monocytes % (Manual) (0.0-7.3) % Eosinophils % (Manual) (0.0-4.3) % Sodium (137-145) mmol/L Chloride (98-107) mmol/L BUN (7-17) mg/dL Creatinine (0.7-1.2) mg/dL Glucose (65-100) mg/dL Lactic Acid (0.7-2.0) mmol/L Alkaline Phosphatase (35-129) units/L C-Reactive Protein 3.10 H (0.00-1.30) mg/dL Total Protein (6.3-8.2) g/dL Albumin (3.9-5) g/dL Assessment and Plan - Patient Problems (1) ESRD (end stage renal disease) Status: Chronic Plan to address problem: Nephrology consulted in ED, strict I/o, monitor uop q shift, daily weight, avoid nephrotoxic agents. (2) Diabetes Status: Acute Plan to address problem: ADA diet, insulin, accu check, hypoglycemia protocol (3) Diabetic ulcer of heel Status: Acute Qualifiers: Laterality: left Non-pressure ulcer stage: limited to breakdown of skin Plan to address problem: Infected Left Heel ulcer: IV antibotic therapy, MR BASILIO to evaluate for osteomyelitis, wound care, pain control, (4) HTN (hypertension) Status: Chronic Qualifiers: Hypertension type: essential hypertension Qualified Code(s): I10 - Essential (primary) hypertension Plan to address problem: monitor bp q shift, continue medical management. (5) DVT prophylaxis Status: Acute Plan to address problem: SCD to BLE while in bed.
[2019-06-22] MEDS ORDERED: D50W (25GM) Syringe IV PRN (16:32)
[2019-06-22] MEDS: ZOFRAN IV PRN (19:40)
[2019-06-22] MEDS: HumaLOG SUB-Q SCH (22:00)
--- NOTE | 2019-06-22 22:07 | Magnetic Resonance Report ---
MR LE NONJOINT LT WO CON INDICATION / CLINICAL INFORMATION: Left foot gangrene. TECHNIQUE: Multiplanar, multisequence MR images were obtained. COMPARISON: 04/23/2019 FINDINGS: A large heel ulcer is present down to the inferior surface of the calcaneus. There is abnormal signal seen in the inferior aspect of the posterior calcaneus. Diffuse soft tissue edema is seen circumfere ntially. A small ankle joint effusion is present. IMPRESSION: Since 04/23/2019, ulceration of the plantar surface of the posterior foot has significantly progressed , now to the inferior surface of the posterior calcaneus. Abnormal signal is seen in the plantar port ion of the posterior calcaneus consistent with osteomyelitis. Diffuse circumferential soft tissue rick ma is present. A small joint effusion is seen in the ankle. Signer Name: Allen Pool MD FACR Signed: 06/22/2019 10:03 PM Workstation Name: [id number]
[2019-06-22] MEDS: LOPRESSOR PO SCH (22:10)
[2019-06-22] MEDS: HEPARIN SUB-Q SCH (22:15)
[2019-06-22] MEDS: ZOFRAN ODT PO SCH (22:29)
[2019-06-22] MEDS ORDERED: TYLENOL PO PRN (23:06)
[2019-06-22] MEDS ORDERED: ZOFRAN IV PRN (23:06)
[2019-06-22] MEDS ORDERED: SODIUM CHLORIDE FLUSH SYRINGE 10 ML IV PRN (23:06)
[2019-06-23] MEDS: PERCOCET 5/325 PO PRN ×2 (04:41→17:43)
[2019-06-23] MEDS: ZOFRAN ODT PO SCH ×3 (05:27→22:17)
[2019-06-23] MEDS ORDERED: DEMADEX PO SCH (06:00)
[2019-06-23 06:26] LABS: Albumin 3.7 g/dL (3.9-5); Calcium 8.9 mg/dL (8.4-10.2)
[2019-06-23 07:02] LABS: Hemoglobin 9.9 gm/dl (10.1-14.3); Mean Corpuscular HGB Conc 33 % (30-34); Mean Corpuscular Volume 72 fl (79-97); Platelet Count 343 K/mm3 (140-440); Red Cell Distribution Width 19.2 % (13.2-15.2)
[2019-06-23 08:01] LABS: Basophils % (Manual) 0 % (0.0-1.8); Total Cells Counted 100
[2019-06-23 08:03] LABS: Anisocytosis 1+; Hypochromasia 1+; Ovalocytes Few; Platelet Estimate Consistent w Auto; Target Cells 1+; Tear Drop Cells Rare
[2019-06-23] MEDS: HumaLOG SUB-Q SCH ×4 (08:30→22:27)
[2019-06-23] MEDS ORDERED: NACL 0.9% 100 ML IV PRN (09:00)
[2019-06-23] MEDS: SODIUM CHLORIDE FLUSH SYRINGE 10 ML IV SCH ×2 (09:42→22:21)
[2019-06-23] MEDS: LANTUS SUB-Q SCH (09:42)
[2019-06-23] MEDS ORDERED: TORSEMIDE 60 MG PO SCH (10:00)
[2019-06-23] MEDS: HEPARIN SUB-Q SCH ×2 (11:00→22:21)
[2019-06-23] MEDS: LOPRESSOR PO SCH ×2 (11:30→22:18)
--- NOTE | 2019-06-23 11:33 | Consultation ---
History of Present Illness - Reason for Consult Consult date: 06/23/19 end stage renal disease Requesting physician: CAESAR BRADSHAW - History of Present Illness 54-year-old lady who is well-known to me with a history of diabetes mellitus, hypertension, complicated by end-stage renal disease on hemodialysis on a Tuesday, and Tuesday schedule at [facility] dialysis. Patient has had an ulcer in her left foot and was being followed at the wound care clinic. Had cultures done and was referred to see infectious disease. Patient saw Dr. Moore who sent her to the hospital for intravenous antibiotics and further management. She's had pain and swelling of that left foot which is foul swelling. She denies any fever or chills but she's had night sweats. Patient had last dialysis on with no complications. I'm consulted to provide dialysis and manage her fluid and electrolytes abnormalities. 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 ). denies: smoking, alcohol abuse, prescription drug abuse, IV drug use Family history: CAD (brother has heart disease), diabetes (Both parents of complications of Diabetes mellitus. Daughter has diabetes mellitus), hypertension Medications and Allergies Allergies Allergy/AdvReac Type Severity Reaction Status Date / Time amlodipine Allergy Itching Verified 04/20/19 11:49 losartan Allergy Itching Verified 04/20/19 11:49 sulfamethoxazole Allergy Rash Verified 04/20/19 11:49 [From Bactrim] trimethoprim [From Bactrim] Allergy Rash Verified 04/20/19 11:49 morphine AdvReac Vomiting Verified 04/20/19 11:49 Home Medications Medication Instructions Recorded Confirmed Last Taken Type Insulin Lispro [Humalog 100 7 units SUB-Q TIDAC 04/20/19 06/22/19 06/22/19 History UNITS/ML Kwikpen] Insulin Glargine [Lantus VIAL] 15 unit SUB-Q DAILY 30 Days units 04/25/19 06/22/19 06/22/19 Rx Metoprolol [Lopressor TAB] 100 mg PO BID #60 tablet 04/25/19 06/22/19 06/22/19 Rx Zolpidem [Ambien] 5 mg PO QHS PRN #30 tablet 04/25/19 06/22/19 06/11/19 Rx Ondansetron [Zofran Odt] 4 mg PO Q8HR #15 tab.rapdis 06/14/19 06/22/19 06/07/19 Rx oxyCODONE /ACETAMINOPHEN [Percocet 1 tab PO BID PRN #6 tablet 06/14/19 06/22/19 06/14/19 Rx 5/325 mg] Torsemide [Demadex] 60 mg PO DAILY 06/22/19 06/22/19 06/22/19 History Active Meds: Active Medications Acetaminophen (Tylenol) 650 mg PO Q4H PRN PRN Reason: Pain MILD(1-3)/Fever >100.5/CASTILLO Dextrose (D50w (25gm) Syringe) 50 ml IV PRN PRN PRN Reason: Hypoglycemia Heparin Sodium (Porcine) (Heparin) 5,000 unit SUB-Q Q12HR [facility] Last Admin: 06/22/19 22:15 Dose: 5,000 unit Documented by: Cefepime HCl (Maxipime/Ns 1 Gm/100 Ml) 500 mg in 50 mls @ 100 mls/hr IV Q24H [facility] Last Admin: 06/22/19 16:21 Dose: Not Given Documented by: Fluconazole (Diflucan) 200 mg in 100 mls @ 100 mls/hr IV Q72HR [facility]; Protocol Sodium Chloride (Nacl 0.9%) 100 mls @ 999 mls/hr IV FRANCOIS PRN PRN Reason: Hypotension Insulin Glargine (Lantus) 15 units SUB-Q DAILY [facility] Last Admin: 06/23/19 09:42 Dose: 15 units Documented by: Insulin Human Lispro (Humalog) 0 unit SUB-Q ACHS [facility]; Protocol Last Admin: 06/23/19 08:30 Dose: Not Given Documented by: Metoprolol Tartrate (Lopressor) 100 mg PO BID [facility] Last Admin: 06/22/19 22:10 Dose: Not Given Documented by: Ondansetron HCl (Zofran Odt) 4 mg PO Q8HR [facility] Last Admin: 06/23/19 05:27 Dose: 4 mg Documented by: Ondansetron HCl (Zofran) 4 mg IV Q8HR PRN PRN Reason: Nausea And Vomiting Last Admin: 06/22/19 19:40 Dose: 4 mg Documented by: Oxycodone/Acetaminophen (Percocet 5/325) 1 tab PO BID PRN PRN Reason: Pain, Moderate (4-6) Last Admin: 06/23/19 04:41 Dose: 1 tab Documented by: Sodium Chloride (Sodium Chloride Flush Syringe 10 Ml) 10 ml IV BID [facility] Last Admin: 06/23/19 09:42 Dose: 10 ml Documented by: Sodium Chloride (Sodium Chloride Flush Syringe 10 Ml) 10 ml IV PRN PRN PRN Reason: LINE FLUSH Torsemide (Demadex) 60 mg PO QDAY [facility] Zolpidem Tartrate (Ambien) 5 mg PO QHS PRN PRN Reason: Sleep Review of Systems All systems: negative (Constitutional: no fever or chills and admits to night sweats. Appetite is diminished. No weight loss. HEENT: No sore throat but admits to sinus drainage. No hearing or vision impairment . Cardiovascular: No chest pain, shortness of breath. Admits to palpitations and lower extremity swelling. No dizziness. Respiratory: Admits to cough productive of whitish sputum, no shortness of breath, hemoptysis or wheezing. Gastrointestinal: Admits to nausea and vomiting. No diarrhea, abdominal pain, hematemesis or melena. Genitourinary: Makes very little urine less than one cup every other day. No frequency urgency dysuria or hematuria. hematologic: No abnormal bleeding or bruising. Integumentary: Admits to itching which is attributed to her high phosphorus. No rash. Neurological: No headache no focal weakness or numbness, no syncope or seizures. Musculoskeletal: No joint pains but admits to stiffness especially in her legs. Psychiatry: Admits to anxiety but no depression) Exam - Vital Signs Vital signs: Vital Signs Temp Pulse Resp BP Pulse Ox 98.4 F 83 16 180/76 98 06/22/19 12:28 06/22/19 12:28 06/22/19 12:28 06/22/19 12:28 06/22/19 12:28 - Physical Exam Narrative exam: Middle-aged -[place] female lying in bed in no acute distress HEENT: NCAT, pink oral mucous membrane Neck: Supple, no venous distention CVS: S1S2 RRR with no murmur, rub or gallop Chest: Clear to auscultation Abdomen: Protuberant, soft, nontender, no organomegaly, bowel sounds are present Extremities: mild edema, dressing left leg and foot which is foul-smelling with also with drainage visible on the sole of the foot, swelling of the left leg Genitourinary deferred Neuro: Awake, alert no focal deficits Results - Lab Results 06/23/19 05:11 06/23/19 05:11 Most recent lab results Calcium 8.9 mg/dL (8.4-10.2) 06/23/19 05:11 Assessment and Plan - Patient Problems (1) Type 2 diabetes mellitus with foot ulcer and gangrene Current Visit: Yes Status: Acute Plan to address problem: Continue antibiotics. Infectious disease digital marketing consultant on board. Consult vascular surgeon to evaluate peripheral vascular disease. Blood sugar management by primary attending (2) Anemia in chronic kidney disease Current Visit: Yes Status: Acute Plan to address problem: Give Erythropoetin on dialysis. Follow-up hemoglobin (3) ESRD (end stage renal disease) Current Visit: No Status: Chronic Plan to address problem: Hemodialysis on a Tuesday, and Tuesday schedule. We'll dialyze today (4) Hypertensive chronic kidney disease with stage 5 chronic kidney disease or end stage renal disease Current Visit: No Status: Chronic Plan to address problem: Follow blood pressure on current medications.
--- NOTE | 2019-06-23 12:34 | Progress Note ---
Assessment and Plan /Diabetic ulcer of left heel with cellulitis and calcaneus osteomyelitis Infected Left Heel ulcer: IV antibotic therapy, MR BASILIO ordered to evaluate for osteomyelitis, wound care consult, pain control, Vascular surgery consulted, patient to benefit from diagnostic angiogram to confirm recent arterial studies 04/18 which did not demonstrate any significant disease ID consulted for antibiotic recommendation We'll consult general surgery for possible debridement /ESRD (end stage renal disease) Nephrology consulted in ED, avoid nephrotoxic agents. / Diabetes type 2 Placed on ADA diet, insulin, accu check, hypoglycemia protocol / HTN (hypertension), uncontrolled monitor bp q shift, continue medical management with po meds. Adjust BP meds as needed / DVT prophylaxis SCD to BLE while in bed. Brief History: 54yo female with multiple medical problems including IDDM and ESRD on HD presents with non-healing left foot ulcer that she states has been ongoing since March. The patient recently underwent left heel debridement this past March and has been treated with outpatient wound care since the procedure. The patient recently noticed drainage and foul smelling odor coming from the foot and was told to come to the hospital. Pt seen and evaluated in ED and found to have infected left foot ulcer with cellulitis. Pt initiated on IV antibiotic therapy and admitted to medical floor. Consult a vascular surgeon and ID for further recommendation. Renal following for dialysis management. Radiological data: MRI left foot: Since 04/23/2019, ulceration of the plantar surface of the posterior foot has significantly progressed, now to the inferior surface of the posterior c alcaneus. Abnormal signal is seen in the plantar portion of the posterior calcaneus consistent with osteomyelitis. Diffuse circumferential soft tissue edema is present. A small joint effusion is seen in the ankle. Hospitalist Physical exam: GENERAL: well-developed and well-nourished AAF lying on bed appeared to be in no discomfort. HEENT: Normocephalic. Atraumatic. No conjunctival congestion or icterus. Patient has moist mucous membranes. NECK: Supple. Trachea midline. CHEST/LUNGS: Clear to auscultated bilaterally, breathing nonlabored. No wheezes crackles or rhonchi. HEART/CARDIOVASCULAR: Regular in rate and rhythm. S1 and S2 positive. ABDOMEN: Abdomen is soft, nontender. Patient has normal bowel sounds. SKIN: There is no rash. Warm and dry. NEURO: No focal motor deficit. Follows command. MUSCULOSKELETAL: No joint effusion or tenderness. Left foot with a wound dressing EXTRIMITY: No edema, no cyanosis or clubbing. PSYCH: Cooperative. Subjective Date of service: 06/23/19 Interval history: Patient seen and examined. Medical records and medication list reviewed. No acute event overnight noted by the RN. Patient denies any chest pain or difficulty breathing. Patient is tolerating diet. c/o left foot pain Discussed plan of care at bedside with patient. Objective - Constitutional Vitals: Vital Signs - 12hr 06/23/19 06/23/19 06/23/19 00:38 05:55 09:36 Temperature 97.9 F 98.8 F Pulse Rate 68 67 Respiratory 20 18 Rate Blood Pressure 175/91 115/48 O2 Sat by Pulse 97 100 98 Oximetry 06/23/19 11:20 Temperature 98.7 F Pulse Rate 71 Respiratory 20 Rate Blood Pressure 140/66 O2 Sat by Pulse 98 Oximetry - Labs CBC & Chem 7: 06/23/19 05:11 06/23/19 05:11 Labs: Abnormal lab results 06/22/19 06/22/19 06/22/19 Range/Units 12:41 12:41 12:41 Hgb 9.6 L (10.1-14.3) gm/dl Hct 29.9 L (30.3-42.9) % MCV 72 L (79-97) fl MCH 23 L (28-32) pg RDW 18.8 H (13.2-15.2) % Seg Neuts % (Manual) 72.0 H (40.0-70.0) % Monocytes % (Manual) 8.0 H (0.0-7.3) % Eosinophils % (Manual) 5.0 H (0.0-4.3) % Sodium 135 L (137-145) mmol/L Chloride 89.9 L (98-107) mmol/L BUN 35 H (7-17) mg/dL Creatinine 4.9 H (0.7-1.2) mg/dL Glucose 284 H (65-100) mg/dL POC Glucose (70-105) Lactic Acid 2.50 H* (0.7-2.0) mmol/L Alkaline Phosphatase 559 H (35-129) units/L C-Reactive Protein (0.00-1.30) mg/dL Total Protein 8.6 H (6.3-8.2) g/dL Albumin 3.5 L (3.9-5) g/dL 06/22/19 06/23/19 06/23/19 Range/Units 12:41 05:11 05:11 Hgb 9.9 L (10.1-14.3) gm/dl Hct 30.0 L (30.3-42.9) % MCV 72 L (79-97) fl MCH 24 L (28-32) pg RDW 19.2 H (13.2-15.2) % Seg Neuts % (Manual) (40.0-70.0) % Monocytes % (Manual) (0.0-7.3) % Eosinophils % (Manual) (0.0-4.3) % Sodium (137-145) mmol/L Chloride 94.5 L (98-107) mmol/L BUN 42 H (7-17) mg/dL Creatinine 5.7 H (0.7-1.2) mg/dL Glucose 64 L (65-100) mg/dL POC Glucose (70-105) Lactic Acid (0.7-2.0) mmol/L Alkaline Phosphatase 536 H (35-129) units/L C-Reactive Protein 3.10 H (0.00-1.30) mg/dL Total Protein 8.8 H (6.3-8.2) g/dL Albumin 3.7 L (3.9-5) g/dL 06/23/19 06/23/19 Range/Units 07:37 11:26 Hgb (10.1-14.3) gm/dl Hct (30.3-42.9) % MCV (79-97) fl MCH (28-32) pg RDW (13.2-15.2) % Seg Neuts % (Manual) (40.0-70.0) % Monocytes % (Manual) (0.0-7.3) % Eosinophils % (Manual) (0.0-4.3) % Sodium (137-145) mmol/L Chloride (98-107) mmol/L BUN (7-17) mg/dL Creatinine (0.7-1.2) mg/dL Glucose (65-100) mg/dL POC Glucose 122 H 166 H (70-105) Lactic Acid (0.7-2.0) mmol/L Alkaline Phosphatase (35-129) units/L C-Reactive Protein (0.00-1.30) mg/dL Total Protein (6.3-8.2) g/dL Albumin (3.9-5) g/dL
--- NOTE | 2019-06-23 13:02 | Consultation ---
History of Present Illness - Reason for Consult Consult date: 06/23/19 Osteomyelitis Requesting physician: MAGALI WEST - History of Present Illness The patient is a 54-year-old female with ESRD on HD M/W/F, HTN, Insulin- dependent diabetes known to us from her previous hospitalization in March 2019 with left foot diabetic heel ulcer which was infected, necrotic requiring surgical debridement with culture growth of Klebsiella, Citrobacter, enterococcus. MRI was negative for osteomyelitis, showed cellulitis and patient was discharged on additional 2 weeks of renally adjusted oral levofloxacin and Augmentin. She continued to follow-up with the wound care clinic and only last week, underwent additional debridement with cultures due to bone worsening. She followed up with Dr. Moore in the ID clinic yesterday and due to significant foul smell from her wound, she was sent to the emergency room and was hospitalized. Patient reports having nausea and vomiting prior to admission, denies any fever or chills. No and a repeat MRI which shows findings concerning for disease progression as well as osteomyelitis of the calcaneus. Review of Systems: General: no fevers,chills or rigors HEENT: no new visual disturbance Respiratory: No cough, sputum, hemoptysis or shortness of breath Cardiovascular: No chest pain, syncope Gastrointestinal: + nausea, vomiting no diarrhea Genitourinary: No dysuria or hematuria Musculoskeletal: No new or worsening neck pain or back pain Neurologic: No headaches, seizures Hematologic: No easy bruising or bleeding Endocrine: No night sweats or acute weight loss Skin: negative for rash, jaundice Psychiatric: No suicidal or homicidal ideation Past History Past Medical History: diabetes, ESRD, hypertension, hyperlipidemia, other (Chronic Pancreatitis) Past Surgical History: , total knee replacement (right), Other (AV fist neo, uterine ablation, retinal surgery) Social history: , lives with family (Grandchildren), other (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 ). denies: smoking, alcohol abuse, prescription drug abuse, IV drug use Family history: CAD (brother has heart disease), diabetes (Both parents of complications of Diabetes mellitus. Daughter has diabetes mellitus), hypertension Medications and Allergies Allergies Allergy/AdvReac Type Severity Reaction Status Date / Time amlodipine Allergy Itching Verified 04/20/19 11:49 losartan Allergy Itching Verified 04/20/19 11:49 sulfamethoxazole Allergy Rash Verified 04/20/19 11:49 [From Bactrim] trimethoprim [From Bactrim] Allergy Rash Verified 04/20/19 11:49 morphine AdvReac Vomiting Verified 04/20/19 11:49 Home Medications Medication Instructions Recorded Confirmed Last Taken Type Insulin Lispro [Humalog 100 7 units SUB-Q TIDAC 04/20/19 06/22/19 06/22/19 History UNITS/ML Kwikpen] Insulin Glargine [Lantus VIAL] 15 unit SUB-Q DAILY 30 Days units 04/25/19 06/22/19 06/22/19 Rx Metoprolol [Lopressor TAB] 100 mg PO BID #60 tablet 04/25/19 06/22/19 06/22/19 Rx Zolpidem [Ambien] 5 mg PO QHS PRN #30 tablet 04/25/19 06/22/19 06/11/19 Rx Ondansetron [Zofran Odt] 4 mg PO Q8HR #15 tab.rapdis 06/14/19 06/22/19 06/07/19 Rx oxyCODONE /ACETAMINOPHEN [Percocet 1 tab PO BID PRN #6 tablet 06/14/19 06/22/19 06/14/19 Rx 5/325 mg] Torsemide [Demadex] 60 mg PO DAILY 06/22/19 06/22/19 06/22/19 History Active Meds: Active Medications Acetaminophen (Tylenol) 650 mg PO Q4H PRN PRN Reason: Pain MILD(1-3)/Fever >100.5/CASTILLO Dextrose (D50w (25gm) Syringe) 50 ml IV PRN PRN PRN Reason: Hypoglycemia Heparin Sodium (Porcine) (Heparin) 5,000 unit SUB-Q Q12HR [facility] Last Admin: 06/22/19 22:15 Dose: 5,000 unit Documented by: Sodium Chloride (Nacl 0.9%) 100 mls @ 999 mls/hr IV FRANCOIS PRN PRN Reason: Hypotension Cefepime HCl (Maxipime/Ns 1 Gm/100 Ml) 1 gm in 100 mls @ 200 mls/hr IV QPM [facility]; Protocol Insulin Glargine (Lantus) 15 units SUB-Q DAILY [facility] Last Admin: 06/23/19 09:42 Dose: 15 units Documented by: Insulin Human Lispro (Humalog) 0 unit SUB-Q ACHS [facility]; Protocol Last Admin: 06/23/19 08:30 Dose: Not Given Documented by: Metoprolol Tartrate (Lopressor) 100 mg PO BID [facility] Last Admin: 06/22/19 22:10 Dose: Not Given Documented by: Ondansetron HCl (Zofran Odt) 4 mg PO Q8HR [facility] Last Admin: 06/23/19 05:27 Dose: 4 mg Documented by: Ondansetron HCl (Zofran) 4 mg IV Q8HR PRN PRN Reason: Nausea And Vomiting Last Admin: 06/22/19 19:40 Dose: 4 mg Documented by: Oxycodone/Acetaminophen (Percocet 5/325) 1 tab PO BID PRN PRN Reason: Pain, Moderate (4-6) Last Admin: 06/23/19 04:41 Dose: 1 tab Documented by: Sodium Chloride (Sodium Chloride Flush Syringe 10 Ml) 10 ml IV BID [facility] Last Admin: 06/23/19 09:42 Dose: 10 ml Documented by: Sodium Chloride (Sodium Chloride Flush Syringe 10 Ml) 10 ml IV PRN PRN PRN Reason: LINE FLUSH Torsemide (Demadex) 60 mg PO QDAY [facility] Zolpidem Tartrate (Ambien) 5 mg PO QHS PRN PRN Reason: Sleep Physical Examination - Physical Exam Narrative exam: Physical Exam: Constitutional: Alert, cooperative. No acute distress Head, Ears, Nose: Normocephalic, atraumatic. External ears, nose normal Eyes: Conjunctivae/corneas clear. No icterus. No ptosis. Neck: Supple, no meningeal signs Cardiovascular: S1, S2 normal. Respiratory: Good air entry, clear to auscultation bilaterally GI: Soft, non-tender; bowel sounds normal. No peritoneal signs Musculoskeletal: b/l trace pedal edema. Left toe with plantar wound, heel with a large wound with dressing, foul smell + Skin: No rash or abscess Hem/Lymphatic: No palpable cervical or supraclavicular nodes. No lymphangitis Psych: Mood ok. Affect normal Neurological: Awake, alert, oriented. No gross abnormality - Constitutional Vitals: Vital Signs Temp Pulse Resp BP Pulse Ox 98.1 F 70 18 152/77 98 06/23/19 12:26 06/23/19 12:45 06/23/19 12:26 06/23/19 12:45 06/23/19 11:20 Temperature -Last 24 Hours Temperature 98.1 F Temperature 98.7 F Temperature 98.8 F Temperature 97.9 F Temperature 98.6 F Temperature 97.8 F Results - Labs CBC & Chem 7: 06/23/19 05:11 06/23/19 05:11 Labs: Abnormal lab results 06/22/19 06/22/19 06/22/19 Range/Units 12:41 12:41 12:41 Hgb 9.6 L (10.1-14.3) gm/dl Hct 29.9 L (30.3-42.9) % MCV 72 L (79-97) fl MCH 23 L (28-32) pg RDW 18.8 H (13.2-15.2) % Seg Neuts % (Manual) 72.0 H (40.0-70.0) % Monocytes % (Manual) 8.0 H (0.0-7.3) % Eosinophils % (Manual) 5.0 H (0.0-4.3) % Sodium 135 L (137-145) mmol/L Chloride 89.9 L (98-107) mmol/L BUN 35 H (7-17) mg/dL Creatinine 4.9 H (0.7-1.2) mg/dL Glucose 284 H (65-100) mg/dL POC Glucose (70-105) Lactic Acid 2.50 H* (0.7-2.0) mmol/L Alkaline Phosphatase 559 H (35-129) units/L C-Reactive Protein (0.00-1.30) mg/dL Total Protein 8.6 H (6.3-8.2) g/dL Albumin 3.5 L (3.9-5) g/dL 06/22/19 06/23/19 06/23/19 Range/Units 12:41 05:11 05:11 Hgb 9.9 L (10.1-14.3) gm/dl Hct 30.0 L (30.3-42.9) % MCV 72 L (79-97) fl MCH 24 L (28-32) pg RDW 19.2 H (13.2-15.2) % Seg Neuts % (Manual) (40.0-70.0) % Monocytes % (Manual) (0.0-7.3) % Eosinophils % (Manual) (0.0-4.3) % Sodium (137-145) mmol/L Chloride 94.5 L (98-107) mmol/L BUN 42 H (7-17) mg/dL Creatinine 5.7 H (0.7-1.2) mg/dL Glucose 64 L (65-100) mg/dL POC Glucose (70-105) Lactic Acid (0.7-2.0) mmol/L Alkaline Phosphatase 536 H (35-129) units/L C-Reactive Protein 3.10 H (0.00-1.30) mg/dL Total Protein 8.8 H (6.3-8.2) g/dL Albumin 3.7 L (3.9-5) g/dL 06/23/19 06/23/19 Range/Units 07:37 11:26 Hgb (10.1-14.3) gm/dl Hct (30.3-42.9) % MCV (79-97) fl MCH (28-32) pg RDW (13.2-15.2) % Seg Neuts % (Manual) (40.0-70.0) % Monocytes % (Manual) (0.0-7.3) % Eosinophils % (Manual) (0.0-4.3) % Sodium (137-145) mmol/L Chloride (98-107) mmol/L BUN (7-17) mg/dL Creatinine (0.7-1.2) mg/dL Glucose (65-100) mg/dL POC Glucose 122 H 166 H (70-105) Lactic Acid (0.7-2.0) mmol/L Alkaline Phosphatase (35-129) units/L C-Reactive Protein (0.00-1.30) mg/dL Total Protein (6.3-8.2) g/dL Albumin (3.9-5) g/dL Assessment and Plan MRI images reviewed, shows significant progression of the disease with abnormal signal in the posterior calcaneus consistent with osteomyelitis. There is also a small joint effusion in the ankle. Cultures: Previous cultures reviewed Most recent cultures include: 06/18/2019 left foot: Enterobacter, enterococcus faecalis, another gram-negative jt that was yet to be identified A/P: 54-year-old female with ESRD on HD M/W/F, HTN, Insulin-dependent diabetes known to us from her previous hospitalization in March 2019 with left foot diabetic heel ulcer which was infected, necrotic requiring surgical debridement with culture growth of Klebsiella, Citrobacter, enterococcus. MRI was negative for osteomyelitis, showed cellulitis and patient was discharged on additional 2 weeks of renally adjusted oral levofloxacin and Augmentin. Now with: 1) Left heel acute osteomyelitis of the calcaneum: Heel ulceration has been present for the last several months requiring wound care and now has progressed to osteomyelitis, failed oral antibiotics. Arterial duplex in March 2019 was negative for any occlusive disease. Start empiric post-HD IV cefepime, vancomycin and flagyl for anaerobic coverage. Will contact microbiology lab for final ID of the other gram-negative jt and also additional susceptibilities on the Enterobacter. Will likely need wound debridement, is at high risk of amputation. 2) ESRD on HD: Renally dose antibiotics. 3) Diabetes mellitus type 2: Recommend anti-ischemic control Recs: post-HD IV cefepime, vancomycin added Flagyl for anaerobic coverage Will contact microbiology lab for final ID of the other gram-negative jt and also additional susceptibilities on the Enterobacter. Will likely need wound debridement, is at high risk of amputation consult Dr. Dunham from General Surgery (patient known to her) D/W Dr. West. Nguyễn Maria MD, [facility] C: [phone] O: [phone] F: [phone]
--- NOTE | 2019-06-23 13:06 | Consultation ---
History of Present Illness - Reason for Consult Consult date: 06/23/19 non-healing foot ulcer Requesting physician: MERLE TAO - History of Present Illness 54yo female with multiple medical problems including IDDM and ESRD on HD presents with non-healing left foot ulcer that she states has been ongoing since March. The patient recently underwent left heel debridement this past March and has been treated with outpatient wound care since the procedure. The patient recently noticed drainage and foul smelling odor coming from the foot and was told to come to the hospital. The patient has been recently non-ambulatory to allow the ulcer to heal. She denies lower extremity claudication prior to this incident. The patient quit smoking over 30 years ago. The patient denies any trauma to the left foot. PE: NAD, A&Ox3 RRR non-labored respirations palpable femoral pulses Bilat both feet warm large 8-9cm necrotic left heel ulcer, 3cm necrotic ulcer noted on the plantar surface of the left great toe extending onto the 2nd toe with associated gangrenous chnages gangrenous ischemic changes noted to the right heel LE Arterial duplex 03/2019 reviewed MRI reviewed Plan: patient at significant risk of limb loss of both legs patient right foot should be placed in a off-loading boot as well arterial studies in 03/2019 did not demonstrate significant disease given extent to disease uncertain if left leg is salvageable patient to benefit from diagnostic angiogram to confirm recent arterial studies will plan on angio Tuesday Past History Past Medical History: diabetes, ESRD, hypertension, hyperlipidemia, other (Chron ic Pancreatitis) Past Surgical History: , total knee replacement (right), Other (AV fistula, uterine ablation, retinal surgery) Social history: , lives with family (Grandchildren), 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 ). denies: smoking, alcohol abuse, prescription drug abuse, IV drug use Family history: CAD (brother has heart disease), diabetes (Both parents of complications of Diabetes mellitus. Daughter has diabetes mellitus), hypertension Medications and Allergies Allergies Allergy/AdvReac Type Severity Reaction Status Date / Time amlodipine Allergy Itching Verified 04/20/19 11:49 losartan Allergy Itching Verified 04/20/19 11:49 sulfamethoxazole Allergy Rash Verified 04/20/19 11:49 [From Bactrim] trimethoprim [From Bactrim] Allergy Rash Verified 04/20/19 11:49 morphine AdvReac Vomiting Verified 04/20/19 11:49 Home Medications Medication Instructions Recorded Confirmed Last Taken Type Insulin Lispro [Humalog 100 7 units SUB-Q TIDAC 04/20/19 06/22/19 06/22/19 History UNITS/ML Kwikpen] Insulin Glargine [Lantus VIAL] 15 unit SUB-Q DAILY 30 Days units 04/25/19 06/22/19 06/22/19 Rx Metoprolol [Lopressor TAB] 100 mg PO BID #60 tablet 04/25/19 06/22/19 06/22/19 Rx Zolpidem [Ambien] 5 mg PO QHS PRN #30 tablet 04/25/19 06/22/19 06/11/19 Rx Ondansetron [Zofran Odt] 4 mg PO Q8HR #15 tab.rapdis 06/14/19 06/22/19 06/07/19 Rx oxyCODONE /ACETAMINOPHEN [Percocet 1 tab PO BID PRN #6 tablet 06/14/19 06/22/19 06/14/19 Rx 5/325 mg] Torsemide [Demadex] 60 mg PO DAILY 06/22/19 06/22/19 06/22/19 History Active Meds: Active Medications Acetaminophen (Tylenol) 650 mg PO Q4H PRN PRN Reason: Pain MILD(1-3)/Fever >100.5/CASTILLO Dextrose (D50w (25gm) Syringe) 50 ml IV PRN PRN PRN Reason: Hypoglycemia Heparin Sodium (Porcine) (Heparin) 5,000 unit SUB-Q Q12HR [facility] Last Admin: 06/22/19 22:15 Dose: 5,000 unit Documented by: Cefepime HCl (Maxipime/Ns 1 Gm/100 Ml) 500 mg in 50 mls @ 100 mls/hr IV Q24H [facility] Last Admin: 06/22/19 16:21 Dose: Not Given Documented by: Fluconazole (Diflucan) 200 mg in 100 mls @ 100 mls/hr IV Q72HR [facility]; Protocol Sodium Chloride (Nacl 0.9%) 100 mls @ 999 mls/hr IV FRANCOIS PRN PRN Reason: Hypotension Insulin Glargine (Lantus) 15 units SUB-Q DAILY [facility] Last Admin: 06/23/19 09:42 Dose: 15 units Documented by: Insulin Human Lispro (Humalog) 0 unit SUB-Q ACHS [facility]; Protocol Last Admin: 06/23/19 08:30 Dose: Not Given Documented by: Metoprolol Tartrate (Lopressor) 100 mg PO BID [facility] Last Admin: 06/22/19 22:10 Dose: Not Given Documented by: Ondansetron HCl (Zofran Odt) 4 mg PO Q8HR [facility] Last Admin: 06/23/19 05:27 Dose: 4 mg Documented by: Ondansetron HCl (Zofran) 4 mg IV Q8HR PRN PRN Reason: Nausea And Vomiting Last Admin: 06/22/19 19:40 Dose: 4 mg Documented by: Oxycodone/Acetaminophen (Percocet 5/325) 1 tab PO BID PRN PRN Reason: Pain, Moderate (4-6) Last Admin: 06/23/19 04:41 Dose: 1 tab Documented by: Sodium Chloride (Sodium Chloride Flush Syringe 10 Ml) 10 ml IV BID [facility] Last Admin: 06/23/19 09:42 Dose: 10 ml Documented by: Sodium Chloride (Sodium Chloride Flush Syringe 10 Ml) 10 ml IV PRN PRN PRN Reason: LINE FLUSH Torsemide (Demadex) 60 mg PO QDAY [facility] Zolpidem Tartrate (Ambien) 5 mg PO QHS PRN PRN Reason: Sleep Exam - Constitutional Vitals: Temp Pulse Resp BP Pulse Ox 98.1 F 72 18 170/85 98 06/23/19 12:26 06/23/19 12:30 06/23/19 12:26 06/23/19 12:30 06/23/19 11:20 Results - Labs CBC & Chem 7: 06/23/19 05:11 06/23/19 05:11 Labs: Abnormal lab results 06/22/19 06/22/19 06/22/19 Range/Units 12:41 12:41 12:41 Hgb 9.6 L (10.1-14.3) gm/dl Hct 29.9 L (30.3-42.9) % MCV 72 L (79-97) fl MCH 23 L (28-32) pg RDW 18.8 H (13.2-15.2) % Seg Neuts % (Manual) 72.0 H (40.0-70.0) % Monocytes % (Manual) 8.0 H (0.0-7.3) % Eosinophils % (Manual) 5.0 H (0.0-4.3) % Sodium 135 L (137-145) mmol/L Chloride 89.9 L (98-107) mmol/L BUN 35 H (7-17) mg/dL Creatinine 4.9 H (0.7-1.2) mg/dL Glucose 284 H (65-100) mg/dL POC Glucose (70-105) Lactic Acid 2.50 H* (0.7-2.0) mmol/L Alkaline Phosphatase 559 H (35-129) units/L C-Reactive Protein (0.00-1.30) mg/dL Total Protein 8.6 H (6.3-8.2) g/dL Albumin 3.5 L (3.9-5) g/dL 06/22/19 06/23/19 06/23/19 Range/Units 12:41 05:11 05:11 Hgb 9.9 L (10.1-14.3) gm/dl Hct 30.0 L (30.3-42.9) % MCV 72 L (79-97) fl MCH 24 L (28-32) pg RDW 19.2 H (13.2-15.2) % Seg Neuts % (Manual) (40.0-70.0) % Monocytes % (Manual) (0.0-7.3) % Eosinophils % (Manual) (0.0-4.3) % Sodium (137-145) mmol/L Chloride 94.5 L (98-107) mmol/L BUN 42 H (7-17) mg/dL Creatinine 5.7 H (0.7-1.2) mg/dL Glucose 64 L (65-100) mg/dL POC Glucose (70-105) Lactic Acid (0.7-2.0) mmol/L Alkaline Phosphatase 536 H (35-129) units/L C-Reactive Protein 3.10 H (0.00-1.30) mg/dL Total Protein 8.8 H (6.3-8.2) g/dL Albumin 3.7 L (3.9-5) g/dL 06/23/19 06/23/19 Range/Units 07:37 11:26 Hgb (10.1-14.3) gm/dl Hct (30.3-42.9) % MCV (79-97) fl MCH (28-32) pg RDW (13.2-15.2) % Seg Neuts % (Manual) (40.0-70.0) % Monocytes % (Manual) (0.0-7.3) % Eosinophils % (Manual) (0.0-4.3) % Sodium (137-145) mmol/L Chloride (98-107) mmol/L BUN (7-17) mg/dL Creatinine (0.7-1.2) mg/dL Glucose (65-100) mg/dL POC Glucose 122 H 166 H (70-105) Lactic Acid (0.7-2.0) mmol/L Alkaline Phosphatase (35-129) units/L C-Reactive Protein (0.00-1.30) mg/dL Total Protein (6.3-8.2) g/dL Albumin (3.9-5) g/dL
[2019-06-23] MEDS: FLAGYL 500 MG/100 ML 500 MG/100 ML BAG IV SCH ×2 (17:25→23:12)
[2019-06-23] MEDS: DEMADEX PO SCH (17:44)
[2019-06-23] MEDS: MAXIPIME/NS 1 GM/100 ML 1 GM/100 ML BAG IV SCH (17:44)
[2019-06-23] MEDS: AMBIEN PO PRN (22:17)
[2019-06-24] MEDS: ZOFRAN ODT PO SCH ×3 (05:08→22:32)
[2019-06-24] MEDS: FLAGYL 500 MG/100 ML 500 MG/100 ML BAG IV SCH ×2 (08:07→16:58)
[2019-06-24] MEDS: HumaLOG SUB-Q SCH ×4 (08:07→22:31)
--- NOTE | 2019-06-24 10:49 | Progress Note ---
Subjective Date of service: 06/24/19 Interval history: patient remains stable left foot dressing clean and dry plan for left leg angiogram tomorrow continue local wound care NPO p MN patient consented Objective - Constitutional Vitals: Vital Signs - 12hr 06/23/19 06/24/19 23:39 05:03 Temperature 98.5 F 98.7 F Pulse Rate 78 68 Respiratory 16 18 Rate Blood Pressure 127/59 120/61 O2 Sat by Pulse 97 98 Oximetry - Labs CBC & Chem 7: 06/23/19 05:11 06/23/19 05:11 Labs: Abnormal lab results 06/23/19 06/23/19 Range/Units 11:26 21:32 POC Glucose 166 H 234 H (70-105) Medications & Allergies - Medications Allergies/Adverse Reactions: Allergies amlodipine Allergy (Verified 04/20/19 11:49) Itching losartan Allergy (Verified 04/20/19 11:49) Itching sulfamethoxazole [From Bactrim] Allergy (Verified 04/20/19 11:49) Rash trimethoprim [From Bactrim] Allergy (Verified 04/20/19 11:49) Rash morphine Adverse Reaction (Verified 04/20/19 11:49) Vomiting Home Medications: Home Medications Medication Instructions Recorded Confirmed Last Taken Type Insulin Lispro [Humalog 100 7 units SUB-Q TIDAC 04/20/19 06/22/19 06/22/19 History UNITS/ML Kwikpen] Insulin Glargine [Lantus VIAL] 15 unit SUB-Q DAILY 30 Days units 04/25/19 06/22/19 06/22/19 Rx Metoprolol [Lopressor TAB] 100 mg PO BID #60 tablet 04/25/19 06/22/19 06/22/19 Rx Zolpidem [Ambien] 5 mg PO QHS PRN #30 tablet 04/25/19 06/22/19 06/11/19 Rx Ondansetron [Zofran Odt] 4 mg PO Q8HR #15 tab.rapdis 06/14/19 06/22/19 06/07/19 Rx oxyCODONE /ACETAMINOPHEN [Percocet 1 tab PO BID PRN #6 tablet 06/14/19 06/22/19 06/14/19 Rx 5/325 mg] Torsemide [Demadex] 60 mg PO DAILY 0806/22/19 06/22/19 History Active Medications: Generic Name Dose Route Start Last Admin Trade Name Freq PRN Reason Stop Dose Admin Acetaminophen 650 mg 06/22/19 23:06 Tylenol PO Q4H PRN Pain MILD(1-3)/Fever >100.5/CASTILLO Dextrose 50 ml 06/22/19 16:32 D50w (25gm) Syringe IV PRN PRN Hypoglycemia Heparin Sodium (Porcine) 5,000 unit 06/22/19 22:00 06/23/19 22:21 Heparin SUB-Q 5,000 unit Q12HR [facility] Administration Sodium Chloride 100 mls @ 999 mls/hr 06/23/19 09:00 Nacl 0.9% IV FRANCOIS PRN Hypotension Cefepime HCl 1 gm in 100 mls @ 200 mls/hr 06/23/19 18:00 06/23/19 17:44 Maxipime/Ns 1 Gm/100 Ml IV 200 mls/hr QPM [facility] Administration Protocol Metronidazole 500 mg in 100 mls @ 100 mls/hr 06/23/19 16:00 06/24/19 08:07 Flagyl 500 Mg/100 Ml IV 100 mls/hr Q8H [facility] Administration Protocol Vancomycin HCl 1 gm in 250 mls @ 167.007 mls/hr 06/26/19 16:00 Vancomycin/Ns 1 Gm/250 Ml IV [id number] [facility] Insulin Glargine 15 units 06/23/19 10:00 06/23/19 09:42 Lantus SUB-Q 15 units DAILY [facility] Administration Insulin Human Lispro 0 unit 06/22/19 22:00 06/24/19 08:07 Humalog SUB-Q Not Given ACHS [facility] Protocol Metoprolol Tartrate 100 mg 06/22/19 22:00 06/23/19 22:18 Lopressor PO 100 mg BID [facility] Administration Ondansetron HCl 4 mg 06/22/19 22:00 06/24/19 05:08 Zofran Odt PO 4 mg Q8HR [facility] Administration Ondansetron HCl 4 mg 06/22/19 19:27 06/22/19 19:40 Zofran IV 4 mg Q8HR PRN Administration Nausea And Vomiting Oxycodone/Acetaminophen 1 tab 06/22/19 16:30 06/23/19 17:43 Percocet 5/325 PO 1 tab BID PRN Administration Pain, Moderate (4-6) Sodium Chloride 10 ml 06/23/19 10:00 06/23/19 22:21 Sodium Chloride Flush Syringe 10 Ml IV 10 ml BID [facility] Administration Sodium Chloride 10 ml 06/22/19 23:06 Sodium Chloride Flush Syringe 10 Ml IV PRN PRN LINE FLUSH Torsemide 60 mg 06/23/19 10:00 06/23/19 17:44 Demadex PO 60 mg QDAY [facility] Administration Zolpidem Tartrate 5 mg 06/22/19 16:30 06/23/19 22:17 Ambien PO 5 mg QHS PRN Administration Sleep
[2019-06-24] MEDS: LANTUS SUB-Q SCH (11:30)
[2019-06-24] MEDS: DEMADEX PO SCH (11:38)
[2019-06-24] MEDS: LOPRESSOR PO SCH ×2 (11:39→22:32)
[2019-06-24] MEDS: HEPARIN SUB-Q SCH ×2 (11:39→22:32)
[2019-06-24] MEDS: SODIUM CHLORIDE FLUSH SYRINGE 10 ML IV SCH ×2 (11:40→22:32)
[2019-06-24] MEDS: PERCOCET 5/325 PO PRN (15:15)
--- NOTE | 2019-06-24 15:39 | Progress Note ---
Assessment and Plan /Diabetic ulcer of left heel with cellulitis and calcaneus osteomyelitis cont IV antibotic therapy, MR BASILIO showed findings posterior calcaneus consistent with osteomyelitis wound care consult, pain control, Vascular surgery consulted, plan for diagnostic angiogram tomorrow to confirm recent arterial studies 04/18 which did not demonstrate any significant disease ID consulted for antibiotic recommendation consulted general surgery for possible debridement /ESRD (end stage renal disease) Nephrology consulted in ED, avoid nephrotoxic agents. / Diabetes type 2 Placed on ADA diet, insulin, accu check, hypoglycemia protocol / HTN (hypertension), uncontrolled monitor bp q shift, continue medical management with po meds. Adjust BP meds as needed / DVT prophylaxis SCD to BLE while in bed. Brief History: 54yo female with multiple medical problems including IDDM and ESRD on HD presents with non-healing left foot ulcer that she states has been ongoing since March. The patient recently underwent left heel debridement this past March and has been treated with outpatient wound care since the procedure. The patient recently noticed drainage and foul smelling odor coming from the foot and was told to come to the hospital. Pt seen and evaluated in ED and found to have infected left foot ulcer with cellulitis. Pt initiated on IV antibiotic therapy and admitted to medical floor. Consult a vascular surgeon and ID for further recommendation. Renal following for dialysis management. Radiological data: MRI left foot: Since 04/23/2019, ulceration of the plantar surface of the posterior foot has significantly progressed, now to the inferior surface of the posterior calca neus. Abnormal signal is seen in the plantar portion of the posterior calcaneus consistent with osteomyelitis. Diffuse circumferential soft tissue edema is present. A small joint effusion is seen in the ankle. Hospitalist Physical exam: GENERAL: well-developed and well-nourished AAF lying on bed appeared to be in no discomfort. HEENT: Normocephalic. Atraumatic. No conjunctival congestion or icterus. Patient has moist mucous membranes. NECK: Supple. Trachea midline. CHEST/LUNGS: Clear to auscultated bilaterally, breathing nonlabored. No wheezes crackles or rhonchi. HEART/CARDIOVASCULAR: Regular in rate and rhythm. S1 and S2 positive. ABDOMEN: Abdomen is soft, nontender. Patient has normal bowel sounds. SKIN: There is no rash. Warm and dry. NEURO: No focal motor deficit. Follows command. MUSCULOSKELETAL: No joint effusion or tenderness. Left foot with a wound dressing EXTRIMITY: No edema, no cyanosis or clubbing. PSYCH: Cooperative. Subjective Date of service: 06/24/19 Interval history: Patient seen and examined. Medical records and medication list reviewed. No acute event overnight noted by the RN. Patient denies any chest pain or difficulty breathing. Patient is tolerating diet. c/o left foot pain but controlled with current meds Discussed plan of care at bedside with patient. Objective - Constitutional Vitals: Vital Signs - 12hr 06/24/19 06/24/19 06/24/19 05:03 11:39 12:03 Temperature 98.7 F 98.9 F Pulse Rate 68 69 67 Respiratory 18 16 Rate Blood Pressure 120/61 175/74 O2 Sat by Pulse 98 98 Oximetry - Labs CBC & Chem 7: 06/23/19 05:11 06/23/19 05:11 Labs: Abnormal lab results 06/23/19 06/24/19 Range/Units 21:32 12:08 POC Glucose 234 H 179 H (70-105)
--- NOTE | 2019-06-24 16:29 | Progress Note ---
Assessment and Plan - Patient Problems (1) Type 2 diabetes mellitus with foot ulcer and gangrene Current Visit: Yes Status: Acute Plan to address problem: Continue antibiotics. Infectious disease functional consultant on board. Vascular surgeon will be doing an angiogram in the morning to evaluate for peripheral vascular disease. Blood sugar management by primary attending (2) Anemia in chronic kidney disease Current Visit: Yes Status: Acute Plan to address problem: Give Erythropoetin on dialysis. Follow-up hemoglobin (3) ESRD (end stage renal disease) Current Visit: No Status: Chronic Plan to address problem: Hemodialysis on a Tuesday, and Tuesday schedule. We'll dialyze today (4) Hypertensive chronic kidney disease with stage 5 chronic kidney disease or end stage renal disease Current Visit: No Status: Chronic Plan to address problem: Follow blood pressure on current medications. Subjective Date of service: 06/24/19 Principal diagnosis: end-stage renal disease, diabetic foot ulcer with gangrene Interval history: Patient seen lying in bed. She complains of pain. Has nausea and vomiting on taking Percocet. Same effect with Lortab. Objective - Exam Narrative Exam: Middle-aged -[place] female lying in bed in no acute distress HEENT: NCAT, pink oral mucous membrane Neck: Supple, no venous distention CVS: S1S2 RRR with no murmur, rub or gallop Chest: Clear to auscultation Abdomen: Protuberant, soft, nontender, no organomegaly, bowel sounds are present Extremities: mild edema, dressing left leg and foot which is foul-smelling t, swelling of the left leg Genitourinary deferred Neuro: Awake, alert no focal deficits - Vital Signs Vital signs: Vital Signs - 12hr 06/24/19 06/24/19 06/24/19 05:03 11:39 12:03 Temperature 98.7 F 98.9 F Pulse Rate 68 69 67 Respiratory 18 16 Rate Blood Pressure 120/61 175/74 O2 Sat by Pulse 98 98 Oximetry - Lab 06/23/19 05:11 06/23/19 05:11 Most recent lab results Calcium 8.9 mg/dL (8.4-10.2) 06/23/19 05:11 Medications & Allergies - Medications Allergies/Adverse Reactions: Allergies amlodipine Allergy (Verified 04/20/19 11:49) Itching losartan Allergy (Verified 04/20/19 11:49) Itching sulfamethoxazole [From Bactrim] Allergy (Verified 04/20/19 11:49) Rash trimethoprim [From Bactrim] Allergy (Verified 04/20/19 11:49) Rash morphine Adverse Reaction (Verified 04/20/19 11:49) Vomiting Home Medications: Home Medications Medication Instructions Recorded Confirmed Last Taken Type Insulin Lispro [Humalog 100 7 units SUB-Q TIDAC 04/20/19 06/22/19 06/22/19 History UNITS/ML Kwikpen] Insulin Glargine [Lantus VIAL] 15 unit SUB-Q DAILY 30 Days units 04/25/19 06/22/19 06/22/19 Rx Metoprolol [Lopressor TAB] 100 mg PO BID #60 tablet 04/25/19 06/22/19 06/22/19 Rx Zolpidem [Ambien] 5 mg PO QHS PRN #30 tablet 04/25/19 06/22/19 06/11/19 Rx Ondansetron [Zofran Odt] 4 mg PO Q8HR #15 tab.rapdis 06/14/19 06/22/19 06/07/19 Rx oxyCODONE /ACETAMINOPHEN [Percocet 1 tab PO BID PRN #6 tablet 06/14/19 06/22/19 06/14/19 Rx 5/325 mg] Torsemide [Demadex] 60 mg PO DAILY 06/22/19 06/22/19 06/22/19 History Active Medications: Generic Name Dose Route Start Last Admin Trade Name Freq PRN Reason Stop Dose Admin Acetaminophen 650 mg 06/22/19 23:06 Tylenol PO Q4H PRN Pain MILD(1-3)/Fever >100.5/CASTILLO Carvedilol 3.125 mg 06/24/19 22:00 Coreg PO BID [facility] Dextrose 50 ml 06/22/19 16:32 D50w (25gm) Syringe IV PRN PRN Hypoglycemia Heparin Sodium (Porcine) 5,000 unit 06/22/19 22:00 06/24/19 11:39 Heparin SUB-Q 5,000 unit Q12HR [facility] Administration Sodium Chloride 100 mls @ 999 mls/hr 06/23/19 09:00 Nacl 0.9% IV FRANCOIS PRN Hypotension Cefepime HCl 1 gm in 100 mls @ 200 mls/hr 06/23/19 18:00 06/23/19 17:44 Maxipime/Ns 1 Gm/100 Ml IV 200 mls/hr QPM [facility] Administration Protocol Metronidazole 500 mg in 100 mls @ 100 mls/hr 06/23/19 16:00 06/24/19 08:07 Flagyl 500 Mg/100 Ml IV 100 mls/hr Q8H [facility] Administration Protocol Vancomycin HCl 1 gm in 250 mls @ 167.007 mls/hr 06/26/19 16:00 Vancomycin/Ns 1 Gm/250 Ml IV TuThSa@1600 [facility] Insulin Glargine 15 units 06/23/19 10:00 06/24/19 11:30 Lantus SUB-Q 15 units DAILY [facility] Administration Insulin Human Lispro 0 unit 06/22/19 22:00 06/24/19 13:35 Humalog SUB-Q 2 unit ACHS [facility] Administration Protocol Metoprolol Tartrate 100 mg 06/22/19 22:00 06/24/19 11:39 Lopressor PO 100 mg BID [facility] Administration Ondansetron HCl 4 mg 06/22/19 22:00 06/24/19 15:16 Zofran Odt PO 4 mg Q8HR [facility] Administration Ondansetron HCl 4 mg 06/22/19 19:27 06/22/19 19:40 Zofran IV 4 mg Q8HR PRN Administration Nausea And Vomiting Oxycodone/Acetaminophen 1 tab 06/24/19 12:11 06/24/19 15:15 Percocet 5/325 PO 1 tab Q6H PRN Administration Pain, Moderate (4-6) Sodium Chloride 10 ml 06/23/19 10:00 06/24/19 11:40 Sodium Chloride Flush Syringe 10 Ml IV 10 ml BID [facility] Administration Sodium Chloride 10 ml 06/22/19 23:06 Sodium Chloride Flush Syringe 10 Ml IV PRN PRN LINE FLUSH Torsemide 60 mg 06/23/19 10:00 06/24/19 11:38 Demadex PO 60 mg QDAY [facility] Administration Zolpidem Tartrate 5 mg 06/22/19 16:30 06/23/19 22:17 Ambien PO 5 mg QHS PRN Administration Sleep
[2019-06-24] MEDS: MAXIPIME/NS 1 GM/100 ML 1 GM/100 ML BAG IV SCH (17:05)
[2019-06-24] MEDS: COREG PO SCH (22:32)
[2019-06-24] MEDS: AMBIEN PO PRN (22:36)
[2019-06-25] MEDS: FLAGYL 500 MG/100 ML 500 MG/100 ML BAG IV SCH ×4 (01:04→23:40)
[2019-06-25] MEDS: ZOFRAN ODT PO SCH ×4 (05:29→23:39)
[2019-06-25] MEDS: PERCOCET 5/325 PO PRN ×2 (05:30→20:16)
[2019-06-25 06:11] LABS: Hematocrit 27.1 % (30.3-42.9); Hemoglobin 8.9 gm/dl (10.1-14.3); Mean Corpuscular HGB Conc 33 % (30-34); Mean Corpuscular Volume 71 fl (79-97); Platelet Count 254 K/mm3 (140-440); Red Blood Count 3.79 M/mm3 (3.65-5.03); Red Cell Distribution Width 18.4 % (13.2-15.2)
[2019-06-25 06:19] LABS: INR 1.04 (0.87-1.13)
[2019-06-25 06:29] LABS: Calcium 8.5 mg/dL (8.4-10.2)
[2019-06-25] MEDS: HumaLOG SUB-Q SCH ×4 (07:41→22:11)
[2019-06-25] MEDS ORDERED: XYLOCAINE MPF 2% ONE (08:30)
[2019-06-25] MEDS ORDERED: HEPARIN/NS 5000 UNIT/500ML(CATH LAB) IR ONE (08:30)
[2019-06-25] MEDS ORDERED: NACL 0.9% 250ML ONE (08:30)
[2019-06-25] MEDS ORDERED: SUBLIMAZE ONE (08:30)
[2019-06-25] MEDS ORDERED: VERSED ONE (08:30)
[2019-06-25] MEDS ORDERED: SUBLIMAZE IV ONE (09:04)
[2019-06-25] MEDS ORDERED: VERSED IV ONE (09:04)
[2019-06-25] MEDS ORDERED: XYLOCAINE 2% INFILTRATI ONE (09:05)
[2019-06-25] MEDS ORDERED: HEPARIN 10,000 UNITS/10 ML 5,000 UNIT in NACL 0.9% 500 ML 500 ML IR ONE (09:10)
[2019-06-25] MEDS ORDERED: HEPARIN IR ONE (09:10)
[2019-06-25] MEDS ORDERED: NACL 0.9% IR ONE (09:10)
--- NOTE | 2019-06-25 09:57 | Post Operative Note ---
Pre-op diagnosis: Left Lower Extremity Critical Limb Ischemia Post-op diagnosis: same Findings: Aorto-iliac widely patent bilaterally, Left Common femoral, Superficial femoral, profunda femoral and popliteal artery widely patent, TP trunk and origin of the Anterior Tibial Patent, origin of the posterior tibial and peroneal artery patent, 50% stenosis of the proximal PT, 50% stenosis of the mid-PT, AT and peroneal arteries patent to the ankle with patent runoff to the foot via the DP, distal PT patent to the ankle, SEPARATOR OPERATOR of the plantar vessels with an incomplete arch in the foot Procedure: 1. Diagnostic Aortogram 2. Left Lower Extremity Diagnostic Angiogram with 3rd Order Catheter Placement 3. Radiologic Supervision and Interpretation 4. Monitored Conscious Sedation Anesthesia: MAC, local Surgeon: CALLIE SERRATO Estimated blood loss: minimal Pathology: none Condition: stable Disposition: floor
[2019-06-25] MEDS: HEPARIN SUB-Q SCH ×2 (10:00→22:14)
[2019-06-25] MEDS: LANTUS SUB-Q SCH (10:00)
--- NOTE | 2019-06-25 10:00 | Progress Note ---
Assessment and Plan MRI images reviewed, shows significant progression of the disease with abnormal signal in the posterior calcaneus consistent with osteomyelitis. There is also a small joint effusion in the ankle. Cultures: Previous cultures reviewed Most recent cultures include: 06/18/2019 left foot: Enterobacter, enterococcus faecalis, A/P: 54-year-old female with ESRD on HD M/W/F, HTN, Insulin-dependent diabetes known to us from her previous hospitalization in March 2019 with left foot diabetic h eel ulcer which was infected, necrotic requiring surgical debridement with culture growth of Klebsiella, Citrobacter, enterococcus. MRI was negative for osteomyelitis, showed cellulitis and patient was discharged on additional 2 weeks of renally adjusted oral levofloxacin and Augmentin. Now with: 1) Left heel acute osteomyelitis of the calcaneum: Heel ulceration has been present for the last several months requiring wound care and now has progressed to osteomyelitis, failed oral antibiotics. Arterial duplex in March 2019 was negative for any occlusive disease. Start empiric post-HD IV cefepime, vancomycin and flagyl for anaerobic coverage. Left Lower Extremity Diagnostic Angiogram today. Will likely need wound debridement, is at high risk of amputation. 2) ESRD on HD: Renally dose antibiotics. 3) Diabetes mellitus type 2: Recommend anti-ischemic control Recs: continue post-HD IV cefepime, vancomycin continue Flagyl for anaerobic coverage consult Dr. Dunham from General Surgery (patient known to her) [facility] M: [phone] O:[phone] Subjective Date of service: 06/25/19 Principal diagnosis: end-stage renal disease, diabetic foot ulcer with gangrene Interval history: Patient seen and examined. Sitting up in bed. Reports no acute distress or generalized weakness. No fevers. Objective - Exam Narrative Exam: Constitutional: Alert, cooperative. No acute distress Head, Ears, Nose: Normocephalic, atraumatic. External ears, nose normal Eyes: Conjunctivae/corneas clear. No icterus. No ptosis. Neck: Supple, no meningeal signs Cardiovascular: S1, S2 normal. Respiratory: Good air entry, clear to auscultation bilaterally GI: Soft, non-tender; bowel sounds normal. No peritoneal signs Musculoskeletal: b/l trace pedal edema. Left toe with plantar wound, heel with a large wound with dressing, foul smell + Skin: No rash or abscess Hem/Lymphatic: No palpable cervical or supraclavicular nodes. No lymphangitis Psych: Mood ok. Affect normal Neurological: Awake, alert, oriented. No gross abnormality - Constitutional Vitals: Vital Signs Temp Pulse Resp BP Pulse Ox 98.1 F 58 L 18 162/74 96 06/25/19 08:12 06/25/19 08:12 06/25/19 08:12 06/25/19 08:12 06/25/19 05:18 Temperature -Last 24 Hours Temperature 98.1 F Temperature 98.4 F Temperature 98.8 F Temperature 98.3 F Temperature 98.9 F - Labs CBC & Chem 7: 06/25/19 05:50 06/25/19 05:50 Labs: Abnormal lab results 06/24/19 06/24/19 06/24/19 Range/Units 12:08 16:42 22:11 Hgb (10.1-14.3) gm/dl Hct (30.3-42.9) % MCV (79-97) fl MCH (28-32) pg RDW (13.2-15.2) % Chloride (98-107) mmol/L BUN (7-17) mg/dL Creatinine (0.7-1.2) mg/dL POC Glucose 179 H 224 H 181 H (70-105) 06/25/19 06/25/19 Range/Units 05:50 05:50 Hgb 8.9 L (10.1-14.3) gm/dl Hct 27.1 L (30.3-42.9) % MCV 71 L (79-97) fl MCH 24 L (28-32) pg RDW 18.4 H (13.2-15.2) % Chloride 94.4 L (98-107) mmol/L BUN 45 H (7-17) mg/dL Creatinine 5.6 H (0.7-1.2) mg/dL POC Glucose (70-105)
[2019-06-25 10:19] LABS: Total Cells Counted 100
[2019-06-25 10:20] LABS: Basophils % (Manual) 0 % (0.0-1.8); Hypochromasia 1+; Ovalocytes Few; Target Cells 1+
[2019-06-25 10:21] LABS: Anisocytosis 2+
[2019-06-25 10:22] LABS: Platelet Estimate Consistent w Auto
[2019-06-25] MEDS: COREG PO SCH ×2 (11:17→22:14)
[2019-06-25] MEDS: DEMADEX PO SCH (11:18)
[2019-06-25] MEDS: LOPRESSOR PO SCH ×2 (11:18→22:13)
[2019-06-25] MEDS: DAKIN'S HALF STRENGTH TP SCH ×2 (12:01→22:16)
[2019-06-25] MEDS: SODIUM CHLORIDE FLUSH SYRINGE 10 ML IV SCH ×2 (12:01→22:12)
[2019-06-25] MEDS: ZOFRAN IV PRN ×2 (13:00→20:16)
--- NOTE | 2019-06-25 13:15 | Consultation ---
History of Present Illness Consult date: 06/25/19 - History of present illness History of present illness: 54 yo F with hx of ESRD on HD who is known to us from the wound care center due to wound of left heel and toe wounds. The patient had cultures and debridement performed last week at wound care center. Cultures from 06/18/19 were positive for enterobacter and enterococcus and she was referred to Dr. Moore as outpatient. Dr. Moore sent patient to hospital for admission. Patient has been receiving aggressive wound care at wound care center. She could not tolerate HBOT due to claustrophobia despite anxiolytics. She was not offloading her foot until last week when she got her wheelchair. No f/c. 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 ). denies: smoking, alcohol abuse, prescription drug abuse, IV drug use Family history: CAD (brother has heart disease), diabetes (Both parents of complications of Diabetes mellitus. Daughter has diabetes mellitus), hypertension Medications and Allergies Allergies Allergy/AdvReac Type Severity Reaction Status Date / Time amlodipine Allergy Itching Verified 04/20/19 11:49 losartan Allergy Itching Verified 04/20/19 11:49 sulfamethoxazole Allergy Rash Verified 04/20/19 11:49 [From Bactrim] trimethoprim [From Bactrim] Allergy Rash Verified 04/20/19 11:49 morphine AdvReac Vomiting Verified 04/20/19 11:49 Home Medications Medication Instructions Recorded Confirmed Last Taken Type Insulin Lispro [Humalog 100 7 units SUB-Q TIDAC 04/20/19 06/22/19 06/22/19 History UNITS/ML Kwikpen] Insulin Glargine [Lantus VIAL] 15 unit SUB-Q DAILY 30 Days units 04/25/19 06/22/19 06/22/19 Rx Metoprolol [Lopressor TAB] 100 mg PO BID #60 tablet 04/25/19 06/22/19 06/22/19 Rx Zolpidem [Ambien] 5 mg PO QHS PRN #30 tablet 04/25/19 06/22/19 06/11/19 Rx Ondansetron [Zofran Odt] 4 mg PO Q8HR #15 tab.rapdis 06/14/19 06/22/19 06/07/19 Rx oxyCODONE /ACETAMINOPHEN [Percocet 1 tab PO BID PRN #6 tablet 06/14/19 06/22/19 06/14/19 Rx 5/325 mg] Torsemide [Demadex] 60 mg PO DAILY 06/22/19 06/22/19 06/22/19 History Active Meds: Active Medications Acetaminophen (Tylenol) 650 mg PO Q4H PRN PRN Reason: Pain MILD(1-3)/Fever >100.5/CASTILLO Carvedilol (Coreg) 3.125 mg PO BID [facility] Last Admin: 06/25/19 11:17 Dose: 3.125 mg Documented by: Dextrose (D50w (25gm) Syringe) 50 ml IV PRN PRN PRN Reason: Hypoglycemia Heparin Sodium (Porcine) (Heparin) 5,000 unit SUB-Q Q12HR [facility] Last Admin: 06/25/19 10:00 Dose: Not Given Documented by: Sodium Chloride (Nacl 0.9%) 100 mls @ 999 mls/hr IV FRANCOIS PRN PRN Reason: Hypotension Cefepime HCl (Maxipime/Ns 1 Gm/100 Ml) 1 gm in 100 mls @ 200 mls/hr IV QPM [facility]; Protocol Last Admin: 06/24/19 17:05 Dose: 200 mls/hr Documented by: Metronidazole (Flagyl 500 Mg/100 Ml) 500 mg in 100 mls @ 100 mls/hr IV Q8H [facility]; Protocol Last Admin: 06/25/19 07:42 Dose: Not Given Documented by: Vancomycin HCl (Vancomycin/Ns 1 Gm/250 Ml) 1 gm in 250 mls @ 167.007 mls/hr IV TuThSa@1600 [facility] Insulin Glargine (Lantus) 15 units SUB-Q DAILY [facility] Last Admin: 06/25/19 10:00 Dose: Not Given Documented by: Insulin Human Lispro (Humalog) 0 unit SUB-Q ACHS [facility]; Protocol Last Admin: 06/25/19 12:02 Dose: Not Given Documented by: Metoprolol Tartrate (Lopressor) 100 mg PO BID [facility] Last Admin: 06/25/19 11:18 Dose: 100 mg Documented by: Ondansetron HCl (Zofran Odt) 4 mg PO Q8HR [facility] Last Admin: 06/25/19 13:01 Dose: Not Given Documented by: Ondansetron HCl (Zofran) 4 mg IV Q8HR PRN PRN Reason: Nausea And Vomiting Last Admin: 06/25/19 13:00 Dose: 4 mg Documented by: Oxycodone/Acetaminophen (Percocet 5/325) 1 tab PO Q6H PRN PRN Reason: Pain, Moderate (4-6) Last Admin: 06/25/19 05:30 Dose: 1 tab Documented by: Sodium Chloride (Sodium Chloride Flush Syringe 10 Ml) 10 ml IV BID [facility] Last Admin: 06/25/19 12:01 Dose: Not Given Documented by: Sodium Chloride (Sodium Chloride Flush Syringe 10 Ml) 10 ml IV PRN PRN PRN Reason: LINE FLUSH Sodium Hypochlorite (Dakin's Half Strength) 1 applic TP BID [facility] Last Admin: 06/25/19 12:01 Dose: Not Given Documented by: Torsemide (Demadex) 60 mg PO QDAY [facility] Last Admin: 06/25/19 11:18 Dose: 60 mg Documented by: Zolpidem Tartrate (Ambien) 5 mg PO QHS PRN PRN Reason: Sleep Last Admin: 06/24/19 22:36 Dose: 5 mg Documented by: Review of Systems All systems: negative (10 pt ROS performed and negative except for that listed in HPI) Exam Vital Signs Temp Pulse Resp BP Pulse Ox 98.4 F 83 16 180/76 98 06/22/19 12:28 06/22/19 12:28 06/22/19 12:28 06/22/19 12:28 06/22/19 12:28 Narrative exam: Gen: AAOx3. NAD ENT: no scleral icterus or conjunctival pallor CV; s1, S2+ resp; even and unlabored Ext: L heel wound - necrotic and nonviable tissue, extends to bone Results - Labs 06/25/19 05:50 06/25/19 05:50 Abnormal lab results 06/24/19 06/24/19 06/25/19 Range/Units 16:42 22:11 05:50 Hgb 8.9 L (10.1-14.3) gm/dl Hct 27.1 L (30.3-42.9) % MCV 71 L (79-97) fl MCH 24 L (28-32) pg RDW 18.4 H (13.2-15.2) % Seg Neuts % (Manual) 76.0 H (40.0-70.0) % Lymphocytes # (Manual) 1.0 L (1.2-5.4) K/mm3 Chloride (98-107) mmol/L BUN (7-17) mg/dL Creatinine (0.7-1.2) mg/dL POC Glucose 224 H 181 H (70-105) 06/25/19 Range/Units 05:50 Hgb (10.1-14.3) gm/dl Hct (30.3-42.9) % MCV (79-97) fl MCH (28-32) pg RDW (13.2-15.2) % Seg Neuts % (Manual) (40.0-70.0) % Lymphocytes # (Manual) (1.2-5.4) K/mm3 Chloride 94.4 L (98-107) mmol/L BUN 45 H (7-17) mg/dL Creatinine 5.6 H (0.7-1.2) mg/dL POC Glucose (70-105) Diabetes panel 06/25/19 Range/Units 05:50 Sodium 137 (137-145) mmol/L Potassium 4.7 (3.6-5.0) mmol/L Chloride 94.4 L (98-107) mmol/L Carbon Dioxide 26 (22-30) mmol/L BUN 45 H (7-17) mg/dL Creatinine 5.6 H (0.7-1.2) mg/dL Glucose 82 (65-100) mg/dL Calcium 8.5 (8.4-10.2) mg/dL Calcium panel 06/25/19 Range/Units 05:50 Calcium 8.5 (8.4-10.2) mg/dL Pituitary panel 06/25/19 Range/Units 05:50 Sodium 137 (137-145) mmol/L Potassium 4.7 (3.6-5.0) mmol/L Chloride 94.4 L (98-107) mmol/L Carbon Dioxide 26 (22-30) mmol/L BUN 45 H (7-17) mg/dL Creatinine 5.6 H (0.7-1.2) mg/dL Glucose 82 (65-100) mg/dL Calcium 8.5 (8.4-10.2) mg/dL Adrenal panel 06/25/19 Range/Units 05:50 Sodium 137 (137-145) mmol/L Potassium 4.7 (3.6-5.0) mmol/L Chloride 94.4 L (98-107) mmol/L Carbon Dioxide 26 (22-30) mmol/L BUN 45 H (7-17) mg/dL Creatinine 5.6 H (0.7-1.2) mg/dL Glucose 82 (65-100) mg/dL Calcium 8.5 (8.4-10.2) mg/dL - Imaging Additional studies: MRI L foot Assessment and Plan 54 yo F with 1. infected diabetic left heel wound extending to bone 2. L heel osteomyelitis 3. ESRD on HD 4. DM Plan: 1. Patient has been receiving aggressive outpatient wound care with little improvement in wound. Now with worsening osteomyelitis based on imaging. Continue dakins to wound 2. IV abx per ID 3. s/p vascular evaluation, angio without need for intervention 4. offloading 5. Recommend evaluation for amputation. Discussed with Tj. Will consult Dr. Rowell Discussed plan with patient. I have had multiple discussions with her as outpatient regarding possible need for amputation. In addition, I have advised her to completely offload both feet as she has developed an ulcer on the right heel which can also break down and lead to a similar outcome as the left. Thank you, please call with questions.
--- NOTE | 2019-06-25 16:50 | Progress Note ---
Assessment and Plan /Diabetic ulcer of left heel with cellulitis and calcaneus osteomyelitis cont IV antibotic therapy, MR BASILIO showed findings posterior calcaneus consistent with osteomyelitis wound care consult, pain control, Vascular surgery consulted, s/p diagnostic angiogram today and did not demonstrate any significant disease ID consulted for antibiotic recommendation consulted general surgery - Dr Rowell for possible amputation /ESRD (end stage renal disease) Nephrology consulted in ED, avoid nephrotoxic agents. / Diabetes type 2 Placed on ADA diet, insulin, accu check, hypoglycemia protocol / HTN (hypertension), uncontrolled monitor bp q shift, continue medical management with po meds. Adjust BP meds as needed / DVT prophylaxis SCD to BLE while in bed. Brief History: 54yo female with multiple medical problems including IDDM and ESRD on HD presents with non-healing left foot ulcer that she states has been ongoing since March. The patient recently underwent left heel debridement this past March and h as been treated with outpatient wound care since the procedure. The patient recently noticed drainage and foul smelling odor coming from the foot and was told to come to the hospital. Pt seen and evaluated in ED and found to have infected left foot ulcer with cellulitis. Pt initiated on IV antibiotic therapy and admitted to medical floor. Consult a vascular surgeon and ID for further recommendation. Renal following for dialysis management. Radiological data: MRI left foot: Since 04/23/2019, ulceration of the plantar surface of the posterior foot has significantly progressed, now to the inferior surface of the posterior calcaneus. Abnormal signal is seen in the plantar portion of the posterior calcaneus consistent with osteomyelitis. Diffuse circumferential soft tissue edema is present. A small joint effusion is seen in the ankle. Hospitalist Physical exam: GENERAL: well-developed and well-nourished AAF lying on bed appeared to be in no discomfort. HEENT: Normocephalic. Atraumatic. No conjunctival congestion or icterus. Pat ient has moist mucous membranes. NECK: Supple. Trachea midline. CHEST/LUNGS: Clear to auscultated bilaterally, breathing nonlabored. No wheezes crackles or rhonchi. HEART/CARDIOVASCULAR: Regular in rate and rhythm. S1 and S2 positive. ABDOMEN: Abdomen is soft, nontender. Patient has normal bowel sounds. SKIN: There is no rash. Warm and dry. NEURO: No focal motor deficit. Follows command. MUSCULOSKELETAL: No joint effusion or tenderness. Left foot with a wound dressing EXTRIMITY: No edema, no cyanosis or clubbing. PSYCH: Cooperative. Subjective Date of service: 06/25/19 Principal diagnosis: end-stage renal disease, diabetic foot ulcer with gangrene Interval history: Patient seen and examined. Medical records and medication list reviewed. No acute event overnight noted by the RN. Patient denies any chest pain or difficulty breathing. Patient is tolerating diet. c/o left foot pain but controlled with current meds Discussed plan of care at bedside with patient. Objective - Constitutional Vitals: Vital Signs - 12hr 06/25/19 06/25/19 06/25/19 05:18 08:12 10:04 Temperature 98.4 F 98.1 F Pulse Rate 59 L 58 L 58 L Respiratory 20 18 Rate Blood Pressure 144/66 181/92 Blood Pressure 162/74 [Right] O2 Sat by Pulse 96 100 Oximetry 06/25/19 06/25/19 06/25/19 11:17 11:18 11:42 Temperature 97.8 F Pulse Rate 62 Respiratory 14 Rate Blood Pressure 181/92 181/92 74/37 Blood Pressure [Right] O2 Sat by Pulse 99 Oximetry 06/25/19 11:51 Temperature Pulse Rate Respiratory Rate Blood Pressure 196/87 Blood Pressure [Right] O2 Sat by Pulse Oximetry - Labs CBC & Chem 7: 06/25/19 05:50 06/25/19 05:50 Labs: Abnormal lab results 06/24/19 06/24/19 06/25/19 Range/Units 16:42 22:11 05:50 Hgb 8.9 L (10.1-14.3) gm/dl Hct 27.1 L (30.3-42.9) % MCV 71 L (79-97) fl MCH 24 L (28-32) pg RDW 18.4 H (13.2-15.2) % Seg Neuts % (Manual) 76.0 H (40.0-70.0) % Lymphocytes # (Manual) 1.0 L (1.2-5.4) K/mm3 Chloride (98-107) mmol/L BUN (7-17) mg/dL Creatinine (0.7-1.2) mg/dL POC Glucose 224 H 181 H (70-105) 06/25/19 Range/Units 05:50 Hgb (10.1-14.3) gm/dl Hct (30.3-42.9) % MCV (79-97) fl MCH (28-32) pg RDW (13.2-15.2) % Seg Neuts % (Manual) (40.0-70.0) % Lymphocytes # (Manual) (1.2-5.4) K/mm3 Chloride 94.4 L (98-107) mmol/L BUN 45 H (7-17) mg/dL Creatinine 5.6 H (0.7-1.2) mg/dL POC Glucose (70-105)
[2019-06-25] MEDS: MAXIPIME/NS 1 GM/100 ML 1 GM/100 ML BAG IV SCH (19:05)
[2019-06-25] MEDS ORDERED: APRESOLINE IV ONE (19:19)
[2019-06-25] MEDS: AMBIEN PO PRN (22:13)
[2019-06-26] MEDS: ZOFRAN IV PRN ×2 (04:46→14:42)
[2019-06-26] MEDS: PERCOCET 5/325 PO PRN (04:47)
[2019-06-26] MEDS: ZOFRAN ODT PO SCH ×3 (05:50→21:41)
[2019-06-26] MEDS: HumaLOG SUB-Q SCH ×4 (08:17→21:43)
[2019-06-26] MEDS: FLAGYL 500 MG/100 ML 500 MG/100 ML BAG IV SCH ×3 (08:47→23:44)
[2019-06-26] MEDS: LANTUS SUB-Q SCH ×2 (08:57→11:05)
--- NOTE | 2019-06-26 09:42 | Progress Note ---
Assessment and Plan MRI images reviewed, shows significant progression of the disease with abnormal signal in the posterior calcaneus consistent with osteomyelitis. There is also a small joint effusion in the ankle. Cultures: Previous cultures reviewed Most recent cultures include: 06/18/2019 left foot: Enterobacter, enterococcus faecalis, A/P: 54-year-old female with ESRD on HD M/W/F, HTN, Insulin-dependent diabetes known to us from her previous hospitalization in March 2019 with left foot diabetic h eel ulcer which was infected, necrotic requiring surgical debridement with culture growth of Klebsiella, Citrobacter, enterococcus. MRI was negative for osteomyelitis, showed cellulitis and patient was discharged on additional 2 weeks of renally adjusted oral levofloxacin and Augmentin. Now with: 1) Left heel acute osteomyelitis of the calcaneum: Heel ulceration has been present for the last several months requiring wound care and now has progressed to osteomyelitis, failed oral antibiotics. Arterial duplex in March 2019 was negative for any occlusive disease. Continue post-HD IV cefepime, vancomycin and flagyl for anaerobic coverage. Dr. Dunham on board: recommends amputation, L heel wound with necrotic nonviable tissue extended to the bone. Agree with surgical recommendation for amputation. Patient also agreeable. 2) ESRD on HD: Renally dose antibiotics. 3) Diabetes mellitus type 2: Recommend anti-ischemic control Recs: continue post-HD IV cefepime, vancomycin continue Flagyl for anaerobic coverage Agree with surgical recommendation for amputation [facility] M: [phone] O:[phone] Subjective Date of service: 06/26/19 Principal diagnosis: end-stage renal disease, diabetic foot ulcer with gangrene Interval history: Patient seen and examined. Sitting up in bed. Reports no acute distress or generalized weakness. No fevers. Objective - Exam Narrative Exam: Constitutional: Alert, cooperative. No acute distress Head, Ears, Nose: Normocephalic, atraumatic. External ears, nose normal Eyes: Conjunctivae/corneas clear. No icterus. No ptosis. Neck: Supple, no meningeal signs Cardiovascular: S1, S2 normal. Respiratory: Good air entry, clear to auscultation bilaterally GI: Soft, non-tender; bowel sounds normal. No peritoneal signs Musculoskeletal: b/l trace pedal edema. Left toe with plantar wound, heel with a large wound with dressing, foul smell + Skin: No rash or abscess Hem/Lymphatic: No palpable cervical or supraclavicular nodes. No lymphangitis Psych: Mood ok. Affect normal Neurological: Awake, alert, oriented. No gross abnormality - Constitutional Vitals: Vital Signs Temp Pulse Resp BP Pulse Ox 97.4 F L 64 18 164/72 100 06/26/19 05:10 06/26/19 05:10 06/26/19 05:10 06/26/19 05:10 06/26/19 05:10 Temperature -Last 24 Hours Temperature 97.4 F Temperature 98.9 F Temperature 98.5 F Temperature 97.8 F - Labs CBC & Chem 7: 06/25/19 05:50 06/25/19 05:50 Labs: Abnormal lab results 06/25/19 06/25/19 Range/Units 05:50 21:41 Seg Neuts % (Manual) 76.0 H (40.0-70.0) % Lymphocytes # (Manual) 1.0 L (1.2-5.4) K/mm3 POC Glucose 160 H (70-105)
[2019-06-26] MEDS ORDERED: DILAUDID PO PRN (09:59)
--- NOTE | 2019-06-26 10:03 | Progress Note ---
Assessment and Plan - Patient Problems (1) Diabetic ulcer of heel Current Visit: Yes Status: Acute Qualifiers: Diabetes mellitus type: type 1 Laterality: left Non-pressure ulcer stage: unspecified non-pressure ulcer stage Qualified Code(s): E10.621 - Type 1 diabetes mellitus with foot ulcer; L97.429 - Non-pressure chronic ulcer of left heel and midfoot with unspecified severity Plan to address problem: Continue antibiotics. Infectious disease family consultant on board. MRI of L foot showed evidence of osteomyelitis at posterior calcaneus. Amputation being discussed (2) End-stage renal disease on hemodialysis Current Visit: Yes Status: Acute Plan to address problem: Hemodialysis on a Tuesday, and Tuesday schedule. We'll dialyze today (3) Anemia in chronic kidney disease Current Visit: Yes Status: Acute Plan to address problem: Give Erythropoetin on dialysis. Follow-up hemoglobin (4) Hypertensive chronic kidney disease with stage 5 chronic kidney disease or end stage renal disease Current Visit: No Status: Chronic Plan to address problem: Follow blood pressure on current medications. Subjective Date of service: 06/26/19 Principal diagnosis: end-stage renal disease, diabetic foot ulcer with gangrene Interval history: Pt awake, alert, c/o severe L foot pain, not improved on percocet Objective - Vital Signs Vital signs: Vital Signs - 12hr 06/25/19 06/25/19 06/26/19 22:13 22:14 05:10 Temperature 97.4 F L Pulse Rate 83 83 64 Respiratory 18 Rate Blood Pressure 152/73 152/73 164/72 O2 Sat by Pulse 100 Oximetry - General Appearance General appearance: well-developed, well-nourished, appears stated age EENT: ATNC, PERRL, mucous membranes moist Neck: no JVD Respiratory: Present: Clear to Ascultation Cardiology: regular, S1S2 Gastrointestinal: normoactive bowel sounds Integumentary: no rash, other (L foot dressed ) Neurologic: no focal deficit, alert and oriented x3, strength 5/5, CN 3-12 intact Psychiatric: mood/affect appropriate, cooperative - Lab 06/25/19 05:50 06/25/19 05:50 Most recent lab results Calcium 8.5 mg/dL (8.4-10.2) 06/25/19 05:50 Medications & Allergies - Medications Allergies/Adverse Reactions: Allergies amlodipine Allergy (Verified 04/20/19 11:49) Itching losartan Allergy (Verified 04/20/19 11:49) Itching sulfamethoxazole [From Bactrim] Allergy (Verified 04/20/19 11:49) Rash trimethoprim [From Bactrim] Allergy (Verified 04/20/19 11:49) Rash morphine Adverse Reaction (Verified 04/20/19 11:49) Vomiting Home Medications: Home Medications Medication Instructions Recorded Confirmed Last Taken Type Insulin Lispro [Humalog 100 7 units SUB-Q TIDAC 04/20/19 06/22/19 06/22/19 History UNITS/ML Kwikpen] Insulin Glargine [Lantus VIAL] 15 unit SUB-Q DAILY 30 Days units 04/25/19 06/22/19 06/22/19 Rx Metoprolol [Lopressor TAB] 100 mg PO BID #60 tablet 04/25/19 06/22/19 06/22/19 Rx Zolpidem [Ambien] 5 mg PO QHS PRN #30 tablet 04/25/19 06/22/19 06/11/19 Rx Ondansetron [Zofran Odt] 4 mg PO Q8HR #15 tab.rapdis 06/14/19 06/22/19 06/07/19 Rx oxyCODONE /ACETAMINOPHEN [Percocet 1 tab PO BID PRN #6 tablet 06/14/19 06/22/19 06/14/19 Rx 5/325 mg] Torsemide [Demadex] 60 mg PO DAILY 06/22/19 06/22/19 06/22/19 History Active Medications: Generic Name Dose Route Start Last Admin Trade Name Freq PRN Reason Stop Dose Admin Acetaminophen 650 mg 06/22/19 23:06 Tylenol PO Q4H PRN Pain MILD(1-3)/Fever >100.5/CASTILLO Carvedilol 3.125 mg 06/24/19 22:00 06/25/19 22:14 Coreg PO 3.125 mg BID FATMATA Administration Dextrose 50 ml 06/22/19 16:32 D50w (25gm) Syringe IV PRN PRN Hypoglycemia Heparin Sodium (Porcine) 5,000 unit 06/22/19 22:00 06/25/19 22:14 Heparin SUB-Q 5,000 unit Q12HR FATMATA Administration Hydromorphone HCl 1 mg 06/26/19 09:59 Dilaudid PO Q6H PRN Pain , Severe (7-10) Sodium Chloride 100 mls @ 999 mls/hr 06/23/19 09:00 Nacl 0.9% IV FRANCOIS PRN Hypotension Cefepime HCl 1 gm in 100 mls @ 200 mls/hr 06/23/19 18:00 06/25/19 19:05 Maxipime/Ns 1 Gm/100 Ml IV 200 mls/hr QPM FATMATA Administration Protocol Metronidazole 500 mg in 100 mls @ 100 mls/hr 06/23/19 16:00 06/26/19 08:47 Flagyl 500 Mg/100 Ml IV 100 mls/hr Q8H FATMATA Administration Protocol Vancomycin HCl 1 gm in 250 mls @ 167.007 mls/hr 06/26/19 16:00 Vancomycin/Ns 1 Gm/250 Ml IV TuThSa@1600 FATAMTA Insulin Glargine 15 units 06/23/19 10:00 06/26/19 08:57 Lantus SUB-Q 15 units DAILY FATMATA Administration Insulin Human Lispro 0 unit 06/22/19 22:00 06/26/19 08:17 Humalog SUB-Q Not Given ACHS [facility] Protocol Metoprolol Tartrate 100 mg 06/22/19 22:00 06/25/19 22:13 Lopressor PO 100 mg BID FATMATA Administration Ondansetron HCl 4 mg 06/22/19 22:00 06/26/19 05:50 Zofran Odt PO Not Given Q8HR FATMATA Ondansetron HCl 4 mg 06/22/19 19:27 06/26/19 04:46 Zofran IV 4 mg Q8HR PRN Administration Nausea And Vomiting Sodium Chloride 10 ml 06/23/19 10:00 06/25/19 22:12 Sodium Chloride Flush Syringe 10 Ml IV 10 ml BID FATMATA Administration Sodium Chloride 10 ml 06/22/19 23:06 Sodium Chloride Flush Syringe 10 Ml IV PRN PRN LINE FLUSH Sodium Hypochlorite 1 applic 06/25/19 11:00 06/25/19 22:16 Dakin's Half Strength TP 1 applicatio BID FATMATA Administration Torsemide 60 mg 06/23/19 10:00 06/25/19 11:18 Demadex PO 60 mg QDAY FATMATA Administration Zolpidem Tartrate 5 mg 06/22/19 16:30 06/25/19 22:13 Ambien PO 5 mg QHS PRN Administration Sleep
[2019-06-26] MEDS: DEMADEX PO SCH (11:02)
[2019-06-26] MEDS: LOPRESSOR PO SCH ×2 (11:02→21:42)
[2019-06-26] MEDS: HEPARIN SUB-Q SCH ×2 (11:03→21:44)
[2019-06-26] MEDS: COREG PO SCH ×2 (11:03→21:41)
[2019-06-26] MEDS: SODIUM CHLORIDE FLUSH SYRINGE 10 ML IV SCH ×2 (11:04→21:40)
--- NOTE | 2019-06-26 12:44 | Consultation ---
History of Present Illness Consult date: 06/26/19 Chief complaint: Diabetic ulcer of the left foot - History of present illness History of present illness: 54 yo diabetic female with a chronic ulcer of the plantar aspect of her left foot with osteomyelitis. Left BKA has been recommended in the past but the pt has refused. 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 ). denies: smoking, alcohol abuse, prescription drug abuse, IV drug use Family history: CAD (brother has heart disease), diabetes (Both parents of complications of Diabetes mellitus. Daughter has diabetes mellitus), hy pertension Medications and Allergies Allergies Allergy/AdvReac Type Severity Reaction Status Date / Time amlodipine Allergy Itching Verified 04/20/19 11:49 losartan Allergy Itching Verified 04/20/19 11:49 sulfamethoxazole Allergy Rash Verified 04/20/19 11:49 [From Bactrim] trimethoprim [From Bactrim] Allergy Rash Verified 04/20/19 11:49 morphine AdvReac Vomiting Verified 04/20/19 11:49 Home Medications Medication Instructions Recorded Confirmed Last Taken Type Insulin Lispro [Humalog 100 7 units SUB-Q TIDAC 04/20/19 06/22/19 06/22/19 History UNITS/ML Kwikpen] Insulin Glargine [Lantus VIAL] 15 unit SUB-Q DAILY 30 Days units 04/25/19 06/22/19 06/22/19 Rx Metoprolol [Lopressor TAB] 100 mg PO BID #60 tablet 04/25/19 06/22/19 06/22/19 Rx Zolpidem [Ambien] 5 mg PO QHS PRN #30 tablet 04/25/19 06/22/19 06/11/19 Rx Ondansetron [Zofran Odt] 4 mg PO Q8HR #15 tab.rapdis 06/14/19 06/22/19 06/07/19 Rx oxyCODONE /ACETAMINOPHEN [Percocet 1 tab PO BID PRN #6 tablet 06/14/19 06/22/19 06/14/19 Rx 5/325 mg] Torsemide [Demadex] 60 mg PO DAILY 06/22/19 06/22/19 06/22/19 History Active Meds: Active Medications Acetaminophen (Tylenol) 650 mg PO Q4H PRN PRN Reason: Pain MILD(1-3)/Fever >100.5/CASTILLO Carvedilol (Coreg) 3.125 mg PO BID [facility] Last Admin: 06/26/19 11:03 Dose: 3.125 mg Documented by: Dextrose (D50w (25gm) Syringe) 50 ml IV PRN PRN PRN Reason: Hypoglycemia Heparin Sodium (Porcine) (Heparin) 5,000 unit SUB-Q Q12HR [facility] Last Admin: 06/26/19 11:03 Dose: 5,000 unit Documented by: Hydromorphone HCl (Dilaudid) 1 mg PO Q6H PRN PRN Reason: Pain , Severe (7-10) Sodium Chloride (Nacl 0.9%) 100 mls @ 999 mls/hr IV FRANCOIS PRN PRN Reason: Hypotension Cefepime HCl (Maxipime/Ns 1 Gm/100 Ml) 1 gm in 100 mls @ 200 mls/hr IV QPM FATMATA; Protocol Last Admin: 06/25/19 19:05 Dose: 200 mls/hr Documented by: Metronidazole (Flagyl 500 Mg/100 Ml) 500 mg in 100 mls @ 100 mls/hr IV Q8H FATMATA; Protocol Last Admin: 06/26/19 08:47 Dose: 100 mls/hr Documented by: Vancomycin HCl (Vancomycin/Ns 1 Gm/250 Ml) 1 gm in 250 mls @ 167.007 mls/hr IV TuThSa@1600 FATMATA Insulin Glargine (Lantus) 15 units SUB-Q DAILY [facility] Last Admin: 06/26/19 11:05 Dose: Not Given Documented by: Insulin Human Lispro (Humalog) 0 unit SUB-Q ACHS [facility]; Protocol Last Admin: 06/26/19 11:15 Dose: Not Given Documented by: Metoprolol Tartrate (Lopressor) 100 mg PO BID [facility] Last Admin: 06/26/19 11:02 Dose: 100 mg Documented by: Ondansetron HCl (Zofran Odt) 4 mg PO Q8HR [facility] Last Admin: 06/26/19 05:50 Dose: Not Given Documented by: Ondansetron HCl (Zofran) 4 mg IV Q8HR PRN PRN Reason: Nausea And Vomiting Last Admin: 06/26/19 04:46 Dose: 4 mg Documented by: Sodium Chloride (Sodium Chloride Flush Syringe 10 Ml) 10 ml IV BID [facility] Last Admin: 06/26/19 11:04 Dose: 10 ml Documented by: Sodium Chloride (Sodium Chloride Flush Syringe 10 Ml) 10 ml IV PRN PRN PRN Reason: LINE FLUSH Sodium Hypochlorite (Dakin's Half Strength) 1 applic TP BID [facility] Last Admin: 06/25/19 22:16 Dose: 1 applicatio Documented by: Torsemide (Demadex) 60 mg PO QDAY [facility] Last Admin: 06/26/19 11:02 Dose: 60 mg Documented by: Zolpidem Tartrate (Ambien) 5 mg PO QHS PRN PRN Reason: Sleep Last Admin: 06/25/19 22:13 Dose: 5 mg Documented by: Review of Systems All systems: negative (none) Exam Vital Signs Temp Pulse Resp BP Pulse Ox 98.4 F 83 16 180/76 98 06/22/19 12:28 06/22/19 12:28 06/22/19 12:28 06/22/19 12:28 06/22/19 12:28 - General physical appearance Positive: well developed, well nourished, no distress - Eyes Positive: PERRL, normal occular movement - ENT Positive: normal pinna, normal nares, normal mucosa, no hearing loss, no congestion - Neck Positive: no masses, no bruits, trachea midline, no venous distension - Respiratory Positive: normal expansion, normal respiratory effort, clear to auscultation - Cardiovascular Rhythm: regular Heart Sounds: Present: S1 & S2. Absent: rub, click - Extremities Extremity abnormal: other (There is a large deep ulcer of the proximal left foot, plantar aspect. The proximal plantar 1/2 of the foot is ulcerated with the calcaneus bone readily visible/exposed. I cannot palpate her left DP or PT pulses.) - Breasts Breasts: deferred - Abdomen Abdomen: Present: soft, bowel sounds normal. Absent: tender, distended Hernia: none - Genitourinary Female Genitourinary: deferred - Neurologic Neurologic: alert and oriented to time, place and person, motor strength and sensation are grossly intact - Psychiatric Psychiatric: appropriate mood/affect, intact judgment & insight Results - Labs 06/25/19 05:50 06/25/19 05:50 Abnormal lab results 06/25/19 06/26/19 Range/Units 21:41 11:17 POC Glucose 160 H 65 L (70-105) - Imaging Additional studies: I have reviewed her arteriogram results of 06/25/19. Assessment and Plan - Patient Problems (1) Diabetic ulcer of heel Current Visit: Yes Status: Acute Qualifiers: Diabetes mellitus type: type 1 Laterality: left Non-pressure ulcer stage: unspecified non-pressure ulcer stage Qualified Code(s): E10.621 - Type 1 diabetes mellitus with foot ulcer; L97.429 - Non-pressure chronic ulcer of left heel and midfoot with unspecified severity Plan to address problem: 1) Pt now agrees to a left BKA. I will check the operative schedule and her HD schedule and get her BKA scheduled SANA.
[2019-06-26] MEDS ORDERED: NACL 0.9% 100 ML IV PRN (13:00)
--- NOTE | 2019-06-26 13:45 | Progress Note ---
Assessment and Plan /Diabetic ulcer of left heel with cellulitis and calcaneus osteomyelitis cont IV antibotic therapy, MR BASILIO showed findings posterior calcaneus consistent with osteomyelitis wound care consult, pain control, Vascular surgery consulted, s/p diagnostic angiogram today and did not demonstrate any significant disease ID consulted for antibiotic recommendation consulted general surgery - Dr Rowell for possible amputation - BKA soon pendin g OR schedule /ESRD (end stage renal disease) Nephrology consulted in ED, avoid nephrotoxic agents. / Diabetes type 2 Placed on ADA diet, insulin, accu check, hypoglycemia protocol / HTN (hypertension), uncontrolled monitor bp q shift, continue medical management with po meds. Adjust BP meds as needed / DVT prophylaxis SCD to BLE while in bed. Brief History: 54yo female with multiple medical problems including IDDM and ESRD on HD presents with non-healing left foot ulcer that she states has [id number] ongoing since March. The patient recently underwent left heel debridement this past March and has been treated with outpatient wound care since the procedure. The patient recently noticed drainage and foul smelling odor coming from the foot and was told to come to the hospital. Pt seen and evaluated in ED and found to have infected left foot ulcer with cellulitis. Pt initiated on IV antibiotic therapy and admitted to medical floor. Consult a vascular surgeon and ID for further recommendation. Renal following for dialysis management. Radiological data: MRI left foot: Since 04/23/2019, ulceration of the plantar surface of the posterior foot has significantly progressed, now to the inferior surface of the posterior calcaneus . Abnormal signal is seen in the plantar portion of the posterior calcaneus consistent with osteomyelitis. Diffuse circumferential soft tissue edema is present. A small joint effusion is seen in the ankle. Hospitalist Physical exam: GENERAL: well-developed and well-nourished AAF lying on bed appeared to be in no discomfort. HEENT: Normocephalic. Atraumatic. No conjunctival congestion or icterus. Patient has moist mucous membranes. NECK: Supple. Trachea midline. CHEST/LUNGS: Clear to auscultated bilaterally, breathing nonlabored. No wheezes crackles or rhonchi. HEART/CARDIOVASCULAR: Regular in rate and rhythm. S1 and S2 positive. ABDOMEN: Abdomen is soft, nontender. Patient has normal bowel sounds. SKIN: There is no rash. Warm and dry. NEURO: No focal motor deficit. Follows command. MUSCULOSKELETAL: No joint effusion or tenderness. Left foot with a wound dressing EXTRIMITY: No edema, no cyanosis or clubbing. PSYCH: Cooperative. Subjective Date of service: 06/26/19 Principal diagnosis: end-stage renal disease, diabetic foot ulcer with gangrene Interval history: Patient seen and examined. Medical records and medication list reviewed. No acute event overnight noted by the RN. Patient denies any chest pain or difficulty breathing. Patient is tolerating diet. c/o left foot pain but controlled with current meds Discussed plan of care at bedside with patient. Objective - Constitutional Vitals: Vital Signs - 12hr 06/26/19 06/26/19 06/26/19 05:10 11:01 11:02 Temperature 97.4 F L Pulse Rate 64 Respiratory 18 Rate Blood Pressure 164/72 133/64 133/64 O2 Sat by Pulse 100 Oximetry 06/26/19 06/26/19 11:03 12:09 Temperature 98.4 F Pulse Rate 62 Respiratory 18 Rate Blood Pressure 133/64 151/68 O2 Sat by Pulse 95 Oximetry - Labs CBC & Chem 7: 06/25/19 05:50 06/25/19 05:50 Labs: Abnormal lab results 06/25/19 06/26/19 Range/Units 21:41 11:17 POC Glucose 160 H 65 L (70-105)
[2019-06-26] MEDS: DAKIN'S HALF STRENGTH TP SCH ×2 (15:41→21:56)
[2019-06-26] MEDS: VANCOMYCIN/NS 1 GM/250 ML 1 GM/250 ML BAG IV SCH ×2 (16:32→21:43)
[2019-06-26] MEDS: MAXIPIME/NS 1 GM/100 ML 1 GM/100 ML BAG IV SCH ×2 (18:35→21:40)
[2019-06-26] MEDS: AMBIEN PO PRN (23:42)
[2019-06-27] MEDS: ZOFRAN ODT PO SCH ×3 (06:01→22:47)
[2019-06-27] MEDS ORDERED: APRESOLINE IV PRN (06:05)
--- NOTE | 2019-06-27 09:53 | Progress Note ---
Assessment and Plan - Patient Problems (1) Diabetic ulcer of heel Current Visit: Yes Status: Acute Qualifiers: Diabetes mellitus type: type 1 Laterality: left Non-pressure ulcer stage: unspecified non-pressure ulcer stage Qualified Code(s): E10.621 - Type 1 diabetes mellitus with foot ulcer; L97.429 - Non-pressure chronic ulcer of left heel and midfoot with unspecified severity Plan to address problem: Continue antibiotics. Infectious disease media consultant on board. MRI of L foot showed evidence of osteomyelitis at posterior calcaneus. awaiting possible BKA (2) End-stage renal disease on hemodialysis Current Visit: Yes Status: Acute Plan to address problem: Hemodialysis on a Tuesday, and Tuesday schedule. (3) Anemia in chronic kidney disease Current Visit: Yes Status: Acute Plan to address problem: Give Erythropoetin on dialysis. Follow-up hemoglobin (4) Hypertensive chronic kidney disease with stage 5 chronic kidney disease or end stage renal disease Current Visit: No Status: Chronic Subjective Date of service: 06/27/19 Principal diagnosis: end-stage renal disease, diabetic foot ulcer with gangrene Interval history: Pt awake, alert, c/o severe L foot pain, not improved on percocet, changed to dilaudid po Objective - Vital Signs Vital signs: Vital Signs - 12hr 06/26/19 06/26/19 06/27/19 22:00 22:40 05:53 Temperature 98.8 F 98.4 F Pulse Rate 68 65 Respiratory 17 20 20 Rate Respiratory 17 Rate [Left Foot ] Blood Pressure 170/71 176/85 O2 Sat by Pulse 96 96 Oximetry 06/27/19 06:47 Temperature Pulse Rate 65 Respiratory Rate Respiratory Rate [Left Foot ] Blood Pressure 176/85 O2 Sat by Pulse Oximetry - General Appearance General appearance: well-developed, well-nourished, appears stated age EENT: ATNC, PERRL, mucous membranes moist Neck: no JVD Respiratory: Present: Clear to Ascultation Cardiology: regular, S1S2 Gastrointestinal: normoactive bowel sounds Integumentary: no rash, other (no edema, L foot in dressing ) Neurologic: no focal deficit, alert and oriented x3, strength 5/5, CN 3-12 intact Psychiatric: mood/affect appropriate, cooperative - Lab 06/25/19 05:50 06/25/19 05:50 Most recent lab results Calcium 8.5 mg/dL (8.4-10.2) 06/25/19 05:50 Medications & Allergies - Medications Allergies/Adverse Reactions: Allergies amlodipine Allergy (Verified 04/20/19 11:49) Itching losartan Allergy (Verified 04/20/19 11:49) Itching sulfamethoxazole [From Bactrim] Allergy (Verified 04/20/19 11:49) Rash trimethoprim [From Bactrim] Allergy (Verified 04/20/19 11:49) Rash morphine Adverse Reaction (Verified 04/20/19 11:49) Vomiting Home Medications: Home Medications Medication Instructions Recorded Confirmed Last Taken Type Insulin Lispro [Humalog 100 7 units SUB-Q TIDAC 04/20/19 06/22/19 06/22/19 History UNITS/ML Kwikpen] Insulin Glargine [Lantus VIAL] 15 unit SUB-Q DAILY 30 Days units 04/25/19 06/22/19 06/22/19 Rx Metoprolol [Lopressor TAB] 100 mg PO BID #60 tablet 04/25/19 06/22/19 06/22/19 Rx Zolpidem [Ambien] 5 mg PO QHS PRN #30 tablet 04/25/19 06/22/19 06/11/19 Rx Ondansetron [Zofran Odt] 4 mg PO Q8HR #15 tab.rapdis 06/14/19 06/22/19 06/07/19 Rx oxyCODONE /ACETAMINOPHEN [Percocet 1 tab PO BID PRN #6 tablet 06/14/19 06/22/19 06/14/19 Rx 5/325 mg] Torsemide [Demadex] 60 mg PO DAILY 06/22/19 06/22/19 06/22/19 History Active Medications: Generic Name Dose Route Start Last Admin Trade Name Freq PRN Reason Stop Dose Admin Acetaminophen 650 mg 06/22/19 23:06 Tylenol PO Q4H PRN Pain MILD(1-3)/Fever >100.5/CASTILLO Carvedilol 3.125 mg 06/24/19 22:00 06/26/19 21:41 Coreg PO 3.125 mg BID FATMATA Administration Dextrose 50 ml 06/22/19 16:32 D50w (25gm) Syringe IV PRN PRN Hypoglycemia Heparin Sodium (Porcine) 5,000 unit 06/22/19 22:00 06/26/19 21:44 Heparin SUB-Q 5,000 unit Q12HR FATMATA Administration Hydralazine HCl 10 mg 06/27/19 06:05 06/27/19 06:47 Apresoline IV 10 mg Q4H PRN Administration Blood Pressure Hydromorphone HCl 1 mg 06/26/19 09:59 06/26/19 14:43 Dilaudid PO 1 mg Q6H PRN Administration Pain , Severe (7-10) Sodium Chloride 100 mls @ 999 mls/hr 06/23/19 09:00 Nacl 0.9% IV FRANCOIS PRN Hypotension Cefepime HCl 1 gm in 100 mls @ 200 mls/hr 06/23/19 18:00 06/26/19 21:40 Maxipime/Ns 1 Gm/100 Ml IV 200 mls/hr QPM FATMATA Administration Protocol Metronidazole 500 mg in 100 mls @ 100 mls/hr 06/23/19 16:00 06/26/19 23:44 Flagyl 500 Mg/100 Ml IV 100 mls/hr Q8H [facility] Administration Protocol Vancomycin HCl 1 gm in 250 mls @ 167.007 mls/hr 06/26/19 16:00 06/26/19 21:43 Vancomycin/Ns 1 Gm/250 Ml IV 167.007 mls/hr [id number] FATMATA Administration Sodium Chloride 100 mls @ 999 mls/hr 06/26/19 13:00 Nacl 0.9% IV FRANCOIS PRN Hypotension Insulin Glargine 15 units 06/23/19 10:00 06/26/19 11:05 Lantus SUB-Q Not Given DAILY [facility] Insulin Human Lispro 0 unit 06/22/19 22:00 06/26/19 21:43 Humalog SUB-Q Not Given ACHS [facility] Protocol Metoprolol Tartrate 100 mg 06/22/19 22:00 06/26/19 21:42 Lopressor PO 100 mg BID FATMATA Administration Ondansetron HCl 4 mg 06/22/19 22:00 06/27/19 06:01 Zofran Odt PO Not Given Q8HR [facility] Ondansetron HCl 4 mg 06/22/19 19:27 06/26/19 14:42 Zofran IV 4 mg Q8HR PRN Administration Nausea And Vomiting Sodium Chloride 10 ml 06/23/19 10:00 06/26/19 21:40 Sodium Chloride Flush Syringe 10 Ml IV 10 ml BID FATMATA Administration Sodium Chloride 10 ml 06/22/19 23:06 Sodium Chloride Flush Syringe 10 Ml IV PRN PRN LINE FLUSH Sodium Hypochlorite 1 applic 06/25/19 11:00 06/26/19 21:56 Dakin's Half Strength TP 1 applicatio BID FATMATA Administration Torsemide 60 mg 06/23/19 10:00 06/26/19 11:02 Demadex PO 60 mg QDAY FATMATA Administration Zolpidem Tartrate 5 mg 06/22/19 16:30 06/26/19 23:42 Ambien PO 5 mg QHS PRN Administration Sleep
[2019-06-27] MEDS: HumaLOG SUB-Q SCH ×4 (10:00→23:02)
[2019-06-27] MEDS: HEPARIN SUB-Q SCH ×2 (10:00→22:53)
[2019-06-27] MEDS: DAKIN'S HALF STRENGTH TP SCH ×2 (10:00→23:09)
[2019-06-27] MEDS: SODIUM CHLORIDE FLUSH SYRINGE 10 ML IV SCH ×2 (10:00→23:02)
[2019-06-27] MEDS: DEMADEX PO SCH (10:00)
[2019-06-27] MEDS: LANTUS SUB-Q SCH (10:00)
[2019-06-27] MEDS: LOPRESSOR PO SCH ×2 (12:36→23:01)
[2019-06-27] MEDS: COREG PO SCH ×2 (12:37→23:01)
--- NOTE | 2019-06-27 13:24 | Anesthesia Day of Surgery ---
Anesthesia Day of Surgery - Day of Surgery Patient Examined: Yes Patient H&P Reviewed: Yes Patient is NPO: Yes
--- NOTE | 2019-06-27 13:25 | Anesthesia Consultation ---
Anesthesia Consult and Med Hx Date of service: 06/27/19 - Airway Anesthetic Teeth Evaluation: Good ROM Head & Neck: Adequate Mental/Hyoid Distance: Adequate Mallampati Class: Class II Intubation Access Assessment: Good - Pre-Operative Health Status ASA Pre-Surgery Classification: ASA3 Proposed Anesthetic Plan: General - Pulmonary Hx Smoking: Yes Hx Asthma: No COPD: No Hx Pneumonia: Yes Hx Sleep Apnea: No (GRECIA PRE SCREEN HIGH RISK) - Cardiovascular System Hx Hypertension: Yes (Had cardiac eval 3-4 years ago for K TX list) Hx Angina: No Hx Heart Murmur: Yes (CAUSES NO PROBLEMS) - Central Nervous System Hx Psychiatric Problems: No - Gastrointestinal Hx Ulcer: No (Hx chronic pancreatitis) - Endocrine Hx Renal Disease: Yes Hx End Stage Renal Disease: Yes (Last HD yesterday) Hx Insulin Dependent Diabetes: Yes - Hematic Hx Anemia: Yes - Other Systems Hx Cancer: No
--- NOTE | 2019-06-27 14:01 | Progress Note ---
Assessment and Plan MRI images reviewed, shows significant progression of the disease with abnormal signal in the posterior calcaneus consistent with osteomyelitis. There is also a small joint effusion in the ankle. Cultures: Previous cultures reviewed Most recent cultures include: 06/18/2019 left foot: Enterobacter, enterococcus faecalis, A/P: 54-year-old female with ESRD on HD M/W/F, HTN, Insulin-dependent diabetes known to us from her previous hospitalization in March 2019 with left foot diabetic h eel ulcer which was infected, necrotic requiring surgical debridement with culture growth of Klebsiella, Citrobacter, enterococcus. MRI was negative for osteomyelitis, showed cellulitis and patient was discharged on additional 2 weeks of renally adjusted oral levofloxacin and Augmentin. Now with: 1) Left heel acute osteomyelitis of the calcaneum: Heel ulceration has been present for the last several months requiring wound care and now has progressed to osteomyelitis, failed oral antibiotics. Arterial duplex in March 2019 was negative for any occlusive disease. Continue post-HD IV cefepime, vancomycin and flagyl for anaerobic coverage. Dr. Dunham on board: recommends amputation, L heel wound with necrotic nonviable tissue extended to the bone. Agree with surgical recommendation for amputation. Patient also agreeable. 2) ESRD on HD: Renally dose antibiotics. 3) Diabetes mellitus type 2: Recommend anti-ischemic control Recs: continue post-HD IV cefepime, vancomycin continue Flagyl for anaerobic coverage Agree with surgical recommendation for amputation Full course of therapy to be guided on surgical outcome. [facility] M: [phone] O:[phone] Subjective Date of service: 06/27/19 Principal diagnosis: end-stage renal disease, diabetic foot ulcer with gangrene Interval history: Patient seen and examined. Sitting up in bed. Reports no acute distress or generali Objective - Constitutional Vitals: Vital Signs Temp Pulse Resp BP Pulse Ox 98.4 F 65 20 169/72 96 06/27/19 05:53 06/27/19 06:47 06/27/19 05:53 06/27/19 12:36 06/27/19 05:53 Temperature -Last 24 Hours Temperature 98.4 F Temperature 98.8 F Temperature 98.2 F Temperature 98.2 F - Labs CBC & Chem 7: 06/25/19 05:50 06/25/19 05:50 Labs: Abnormal lab results 06/26/19 06/27/19 Range/Units 21:51 13:25 POC Hgb 11.6 L (12-17) POC Hct 34 L (38-51) POC Sodium 136 L (138-146) mmol/L POC BUN 39 H (8-26) mg/dl POC Glucose 111 H 179 H (70-105)
--- NOTE | 2019-06-27 14:45 | Progress Note ---
Assessment and Plan /Diabetic ulcer of left heel with cellulitis and calcaneus osteomyelitis cont IV antibotic therapy, MR BASILIO showed findings posterior calcaneus consistent with osteomyelitis wound care consult, pain control, Vascular surgery consulted, s/p diagnostic angiogram on 06/25 and not demonstrate any significant disease ID consulted for antibiotic recommendation consulted general surgery - Dr Rowell - for BKA today /ESRD (end stage renal disease) Nephrology consulted in ED, avoid nephrotoxic agents. /Anemia of CD, monitor h/h / Diabetes type 2 Placed on ADA diet, insulin, accu check, hypoglycemia protocol / HTN (hypertension), uncontrolled monitor bp q shift, continue medical management with po meds. Adjust BP meds as needed / DVT prophylaxis SCD to BLE while in bed. Brief History: 54yo female with multiple medical problems including IDDM and ESRD on HD presents with non-healing left foot ulcer that she states has [id number] ongoing since March. The patient recently underwent left heel debridement this past March and has been treated with outpatient wound care since the procedure. The patient recently noticed drainage and foul smelling odor coming from the foot and was told to come to the hospital. Pt seen and evaluated in ED and found to have infected left foot ulcer with cellulitis. Pt initiated on IV antibiotic therapy and admitted to medical floor. Consult a vascular surgeon and ID for further recommendation. Renal following for dialysis management. Radiological data: MRI left foot: Since 04/23/2019, ulceration of the plantar surface of the posterior foot has significantly progressed, now to the inferior surface of the posterior calcaneus. Abnormal signal is seen in the plantar portion of the posterior calcaneus consistent with osteomyelitis. Diffuse circumferential soft tissue edema is present. A small joint effusion is seen in the ankle. Hospitalist Physical exam: GENERAL: well-developed and well-nourished AAF lying on bed appeared to be in no discomfort. HEENT: Normocephalic. Atraumatic. No conjunctival congestion or icterus. Patient has moist mucous membranes. NECK: Supple. Trachea midline. CHEST/LUNGS: Clear to auscultated bilaterally, breathing nonlabored. No wheezes crackles or rhonchi. HEART/CARDIOVASCULAR: Regular in rate and rhythm. S1 and S2 positive. ABDOMEN: Abdomen is soft, nontender. Patient has normal bowel sounds. SKIN: There is no rash. Warm and dry. NEURO: No focal motor deficit. Follows command. MUSCULOSKELETAL: No joint effusion or tenderness. Left foot with a wound dressi ng EXTRIMITY: No edema, no cyanosis or clubbing. PSYCH: Cooperative. Subjective Date of service: 06/27/19 Principal diagnosis: end-stage renal disease, diabetic foot ulcer with gangrene Interval history: Patient seen and examined. Medical records and medication list reviewed. No acute event overnight noted by the RN. Patient denies any chest pain or difficulty breathing. Plan for left foot BKA today Discussed plan of care at bedside with patient. Objective - Constitutional Vitals: Vital Signs - 12hr 06/27/19 06/27/19 06/27/19 05:53 06:47 12:36 Temperature 98.4 F Pulse Rate 65 65 Respiratory 20 Rate Blood Pressure 176/85 176/85 169/72 O2 Sat by Pulse 96 Oximetry - Labs CBC & Chem 7: 06/25/19 05:50 06/25/19 05:50 Labs: Abnormal lab results 06/26/19 06/27/19 Range/Units 21:51 13:25 POC Hgb 11.6 L (12-17) POC Hct 34 L (38-51) POC Sodium 136 L (138-146) mmol/L POC BUN 39 H (8-26) mg/dl POC Glucose 111 H 179 H (70-105)
[2019-06-27] MEDS ORDERED: KETAMINE 50 MG/ML-WATER SYRING ONE (15:00)
[2019-06-27] MEDS ORDERED: SUBLIMAZE ONE (15:00)
[2019-06-27] MEDS ORDERED: DIPRIVAN 10 MG/ML IV ONE (15:00)
[2019-06-27] MEDS ORDERED: XYLOCAINE MPF 2% ONE (15:00)
[2019-06-27] MEDS ORDERED: ZOFRAN ONE (15:00)
--- NOTE | 2019-06-27 15:00 | Progress Note ---
Subjective Date of service: 06/27/19 Principal diagnosis: end-stage renal disease, diabetic foot ulcer with gangrene Interval history: Patient remains stable. right groin access site soft. patient with significant small vessel disease in the left foot. patient with no revascularization optio ns. agree with pursing primary amputation. patient would like to continue to follow-up as an outpatient concerning right leg. patient can follow-up in 4-6 weeks once discharged. Objective - Constitutional Vitals: Vital Signs - 12hr 06/27/19 06/27/19 06/27/19 05:53 06:47 12:36 Temperature 98.4 F Pulse Rate 65 65 Respiratory 20 Rate Blood Pressure 176/85 176/85 169/72 O2 Sat by Pulse 96 Oximetry - Labs CBC & Chem 7: 06/25/19 05:50 06/25/19 05:50 Labs: Abnormal lab results 06/26/19 06/27/19 Range/Units 21:51 13:25 POC Hgb 11.6 L (12-17) POC Hct 34 L (38-51) POC Sodium 136 L (138-146) mmol/L POC BUN 39 H (8-26) mg/dl POC Glucose 111 H 179 H (70-105) Medications & Allergies - Medications Allergies/Adverse Reactions: Allergies amlodipine Allergy (Verified 04/20/19 11:49) Itching losartan Allergy (Verified 04/20/19 11:49) Itching sulfamethoxazole [From Bactrim] Allergy (Verified 04/20/19 11:49) Rash trimethoprim [From Bactrim] Allergy (Verified 04/20/19 11:49) Rash morphine Adverse Reaction (Verified 04/20/19 11:49) Vomiting Home Medications: Home Medications Medication Instructions Recorded Confirmed Last Taken Type Insulin Lispro [Humalog 100 7 units SUB-Q TIDAC 04/20/19 06/22/19 06/22/19 History UNITS/ML Kwikpen] Insulin Glargine [Lantus VIAL] 15 unit SUB-Q DAILY 30 Days units 04/25/19 06/22/19 06/22/19 Rx Metoprolol [Lopressor TAB] 100 mg PO BID #60 tablet 04/25/19 06/22/19 06/22/19 Rx Zolpidem [Ambien] 5 mg PO QHS PRN #30 tablet 06/06/22/19 06/11/19 Rx Ondansetron [Zofran Odt] 4 mg PO Q8HR #15 tab.rapdis 06/14/19 06/22/19 06/07/19 Rx oxyCODONE /ACETAMINOPHEN [Percocet 1 tab PO BID PRN #6 tablet 06/14/19 06/22/19 06/14/19 Rx 5/325 mg] Torsemide [Demadex] 60 mg PO DAILY 06/22/19 06/22/19 06/22/19 History Active Medications: Generic Name Dose Route Start Last Admin Trade Name Freq PRN Reason Stop Dose Admin Acetaminophen 650 mg 06/22/19 23:06 Tylenol PO Q4H PRN Pain MILD(1-3)/Fever >100.5/CASTILLO Carvedilol 3.125 mg 06/24/19 22:00 06/27/19 12:37 Coreg PO 3.125 mg BID FATMATA Administration Dextrose 50 ml 06/22/19 16:32 D50w (25gm) Syringe IV PRN PRN Hypoglycemia Heparin Sodium (Porcine) 5,000 unit 06/22/19 22:00 06/26/19 21:44 Heparin SUB-Q 5,000 unit Q12HR FATMATA Administration Hydralazine HCl 10 mg 06/27/19 06:05 06/27/19 06:47 Apresoline IV 10 mg Q4H PRN Administration Blood Pressure Hydromorphone HCl 1 mg 06/26/19 09:59 06/26/19 14:43 Dilaudid PO 1 mg Q6H PRN Administration Pain , Severe (7-10) Cefepime HCl 1 gm in 100 mls @ 200 mls/hr 06/23/19 18:00 06/26/19 21:40 Maxipime/Ns 1 Gm/100 Ml IV 200 mls/hr QPM FATMATA Administration Protocol Metronidazole 500 mg in 100 mls @ 100 mls/hr 06/23/19 16:00 06/26/19 23:44 Flagyl 500 Mg/100 Ml IV 100 mls/hr Q8H [facility] Administration Protocol Vancomycin HCl 1 gm in 250 mls @ 167.007 mls/hr 06/26/19 16:00 06/26/19 21:43 Vancomycin/Ns 1 Gm/250 Ml IV 167.007 mls/hr [id number] FATMATA Administration Sodium Chloride 100 mls @ 999 mls/hr 06/26/19 13:00 Nacl 0.9% IV FRANCOIS PRN Hypotension Insulin Glargine 15 units 06/23/19 10:00 06/26/19 11:05 Lantus SUB-Q Not Given DAILY [facility] Insulin Human Lispro 0 unit 06/22/19 22:00 06/26/19 21:43 Humalog SUB-Q Not Given [facility] Protocol Metoprolol Tartrate 100 mg 06/22/19 22:00 06/27/19 12:36 Lopressor PO 100 mg BID FATMATA Administration Ondansetron HCl 4 mg 06/22/19 22:00 06/27/19 06:01 Zofran Odt PO Not Given Q8HR [facility] Ondansetron HCl 4 mg 06/22/19 19:27 06/26/19 14:42 Zofran IV 4 mg Q8HR PRN Administration Nausea And Vomiting Sodium Chloride 10 ml 06/23/19 10:00 06/26/19 21:40 Sodium Chloride Flush Syringe 10 Ml IV 10 ml BID FATMATA Administration Sodium Chloride 10 ml 06/22/19 23:06 Sodium Chloride Flush Syringe 10 Ml IV PRN PRN LINE FLUSH Sodium Hypochlorite 1 applic 06/25/19 11:00 06/26/19 21:56 Dakin's Half Strength TP 1 applicatio BID FATMATA Administration Torsemide 60 mg 06/23/19 10:00 06/26/19 11:02 Demadex PO 60 mg QDAY FATMATA Administration Zolpidem Tartrate 5 mg 06/22/19 16:30 06/26/19 23:42 Ambien PO 5 mg QHS PRN Administration Sleep
--- NOTE | 2019-06-27 15:16 | Post Operative Note ---
Pre-op diagnosis: chronic osteomyelitis, left foot Post-op diagnosis: same Procedure: Left BKA Anesthesia: other (LMA) Surgeon: JOCELINE FLAHERTY Estimated blood loss: 50-100ml Pathology: list (left leg/foot) Specimen disposition: to lab Condition: stable Disposition: PACU
[2019-06-27] MEDS ORDERED: DILAUDID IV PRN (15:34)
[2019-06-27] MEDS ORDERED: ZOFRAN IV ONE (15:41)
[2019-06-27] MEDS ORDERED: SUBLIMAZE IV PRN (16:07)
--- NOTE | 2019-06-27 16:25 | Event Note ---
Date: 06/27/19 Patient not seen today, in surgery. Will round on patient in the morning.
[2019-06-27] MEDS: FLAGYL 500 MG/100 ML 500 MG/100 ML BAG IV SCH ×3 (17:54→23:35)
[2019-06-27] MEDS: MAXIPIME/NS 1 GM/100 ML 1 GM/100 ML BAG IV SCH (18:07)
[2019-06-27] MEDS: DILAUDID IV PRN ×2 (18:13→23:00)
[2019-06-27] MEDS: ZOFRAN IV PRN (19:36)
[2019-06-27] MEDS: AMBIEN PO PRN (23:17)
[2019-06-28] MEDS: DILAUDID IV PRN ×4 (01:33→23:00)
[2019-06-28] MEDS: REGLAN IV PRN ×3 (01:43→16:15)
[2019-06-28 05:32] LABS: Calcium 8.7 mg/dL (8.4-10.2)
[2019-06-28 06:14] LABS: Hematocrit 28.3 % (30.3-42.9); Mean Corpuscular HGB Conc 32 % (30-34); Mean Corpuscular Volume 72 fl (79-97); Platelet Count 287 K/mm3 (140-440); Red Blood Count 3.94 M/mm3 (3.65-5.03); Red Cell Distribution Width 18.9 % (13.2-15.2)
[2019-06-28] MEDS: ZOFRAN ODT PO SCH ×3 (06:59→21:38)
[2019-06-28 09:00] LABS: Basophils % (Manual) 0 % (0.0-1.8); Total Cells Counted 100
[2019-06-28 09:01] LABS: Anisocytosis 2+; Hypochromasia 1+
[2019-06-28 09:02] LABS: Ovalocytes Few; Platelet Estimate Consistent w Auto; Target Cells 2+
--- NOTE | 2019-06-28 09:22 | Progress Note ---
Assessment and Plan MRI images reviewed, shows significant progression of the disease with abnormal signal in the posterior calcaneus consistent with osteomyelitis. There is also a small joint effusion in the ankle. Cultures: Previous cultures reviewed Most recent cultures include: 06/18/2019 left foot: Enterobacter, enterococcus faecalis, A/P: 54-year-old female with ESRD on HD M/W/F, HTN, Insulin-dependent diabetes known to us from her previous hospitalization in March 2019 with left foot diabetic h eel ulcer which was infected, necrotic requiring surgical debridement with culture growth of Klebsiella, Citrobacter, enterococcus. MRI was negative for osteomyelitis, showed cellulitis and patient was discharged on additional 2 weeks of renally adjusted oral levofloxacin and Augmentin. Now with: 1) Left heel acute osteomyelitis of the calcaneum: Heel ulceration has been present for the last several months requiring wound care and now has progressed to osteomyelitis, failed oral antibiotics. Arterial duplex in March 2019 was negative for any occlusive disease. Continue post-HD IV cefepime, vancomycin and flagyl for anaerobic coverage until 06-29-19. s/p left BKA 06/27/19. 2) ESRD on HD: Renally dose antibiotics. 3) Diabetes mellitus type 2: Recommend anti-ischemic control Recs: continue post-HD IV cefepime, vancomycin until 06-29-19 continue Flagyl for anaerobic coverage ending 06-29-19 [facility] M: [phone] O:[phone] Subjective Date of service: 06/28/19 Principal diagnosis: end-stage renal disease, diabetic foot ulcer with gangrene Interval history: Patient seen and examined. Reports no acute distress or generalized weakness. No fevers. Objective - Exam Narrative Exam: Constitutional: Alert, cooperative. No acute distress Head, Ears, Nose: Normocephalic, atraumatic. External ears, nose normal Eyes: Conjunctivae/corneas clear. No icterus. No ptosis. Neck: Supple, no meningeal signs Cardiovascular: S1, S2 normal. Respiratory: Good air entry, clear to auscultation bilaterally GI: Soft, non-tender; bowel sounds normal. No peritoneal signs Musculoskeletal: left BKA. Wrapped. Skin: No rash or abscess Hem/Lymphatic: No palpable cervical or supraclavicular nodes. No lymphangitis Psych: Mood ok. Affect normal Neurological: Awake, alert, oriented. No gross abnormality - Constitutional Vitals: Vital Signs Temp Pulse Resp BP Pulse Ox 98.3 F 65 20 176/73 99 06/28/19 04:10 06/28/19 04:10 06/28/19 04:10 06/28/19 04:10 06/28/19 04:10 Temperature -Last 24 Hours Temperature 98.3 F Temperature 99.0 F Temperature 99.3 F Temperature 99.0 F Temperature 97.2 F Temperature 98.4 F - Labs CBC & Chem 7: 06/28/19 05:03 06/28/19 05:03 Labs: Abnormal lab results 06/27/19 06/27/19 06/27/19 Range/Units 12:20 13:25 16:30 WBC (4.5-11.0) K/mm3 Hgb (10.1-14.3) gm/dl POC Hgb 11.6 L (12-17) Hct (30.3-42.9) % POC Hct 34 L (38-51) MCV (79-97) fl MCH (28-32) pg RDW (13.2-15.2) % Seg Neuts % (Manual) (40.0-70.0) % Lymphocytes % (Manual) (13.4-35.0) % Seg Neutrophils # Man (1.8-7.7) K/mm3 Monocytes # (Manual) (0.0-0.8) K/mm3 POC Sodium 136 L (138-146) mmol/L Chloride (98-107) mmol/L POC BUN 39 H (8-26) mg/dl BUN (7-17) mg/dL Creatinine (0.7-1.2) mg/dL Glucose (65-100) mg/dL POC Glucose 176 H 179 H 185 H (70-105) 06/27/19 06/28/19 06/28/19 Range/Units 21:49 05:03 05:03 WBC 12.5 H (4.5-11.0) K/mm3 Hgb 9.0 L (10.1-14.3) gm/dl POC Hgb (12-17) Hct 28.3 L (30.3-42.9) % POC Hct (38-51) MCV 72 L (79-97) fl MCH 23 L (28-32) pg RDW 18.9 H (13.2-15.2) % Seg Neuts % (Manual) 80.0 H (40.0-70.0) % Lymphocytes % (Manual) 12.0 L (13.4-35.0) % Seg Neutrophils # Man 10.0 H (1.8-7.7) K/mm3 Monocytes # (Manual) 0.9 H (0.0-0.8) K/mm3 POC Sodium (138-146) mmol/L Chloride 93.9 L (98-107) mmol/L POC BUN (8-26) mg/dl BUN 45 H (7-17) mg/dL Creatinine 6.5 H (0.7-1.2) mg/dL Glucose 131 H (65-100) mg/dL POC Glucose 177 H (70-105) 06/28/19 Range/Units 08:18 WBC (4.5-11.0) K/mm3 Hgb (10.1-14.3) gm/dl POC Hgb (12-17) Hct (30.3-42.9) % POC Hct (38-51) MCV (79-97) fl MCH (28-32) pg RDW (13.2-15.2) % Seg Neuts % (Manual) (40.0-70.0) % Lymphocytes % (Manual) (13.4-35.0) % Seg Neutrophils # Man (1.8-7.7) K/mm3 Monocytes # (Manual) (0.0-0.8) K/mm3 POC Sodium (138-146) mmol/L Chloride (98-107) mmol/L POC BUN (8-26) mg/dl BUN (7-17) mg/dL Creatinine (0.7-1.2) mg/dL Glucose (65-100) mg/dL POC Glucose 129 H (70-105)
[2019-06-28] MEDS: HEPARIN SUB-Q SCH ×2 (09:45→21:38)
[2019-06-28] MEDS: SODIUM CHLORIDE FLUSH SYRINGE 10 ML IV SCH ×2 (09:48→23:01)
[2019-06-28] MEDS: LOPRESSOR PO SCH ×2 (10:09→21:38)
[2019-06-28] MEDS: DEMADEX PO SCH (10:09)
[2019-06-28] MEDS: FLAGYL 500 MG/100 ML 500 MG/100 ML BAG IV SCH (10:12)
[2019-06-28] MEDS: COREG PO SCH ×2 (10:12→21:39)
[2019-06-28] MEDS: HumaLOG SUB-Q SCH ×4 (10:16→22:55)
[2019-06-28] MEDS: DAKIN'S HALF STRENGTH TP SCH ×2 (10:17→22:00)
[2019-06-28] MEDS: LANTUS SUB-Q SCH (10:18)
--- NOTE | 2019-06-28 10:22 | Progress Note ---
Assessment and Plan /Diabetic ulcer of left heel with cellulitis and calcaneus osteomyelitis cont IV antibotic therapy, MR BASILIO showed findings posterior calcaneus consistent with osteomyelitis wound care consult, pain control, Vascular surgery consulted, s/p diagnostic angiogram on 06/25 and not demonstrate any significant disease ID consulted for antibiotic recommendation consulted general surgery - Dr Rowell - s/p BKA 06/27/19 Per ID: continue post-HD IV cefepime, vancomycin until 06-29-19 continue Flagyl for anaerobic coverage ending 06-29-19 /ESRD (end stage renal disease) Nephrology consulted in ED, avoid nephrotoxic agents. /Anemia of CD, monitor h/h / Diabetes type 2 Placed on ADA diet, insulin, accu check, hypoglycemia protocol / HTN (hypertension), uncontrolled monitor bp q shift, continue medical management with po meds. Adjust BP meds as needed / DVT prophylaxis SCD to BLE while in bed. Disposition: Acute rehab Brief History: 54yo female with multiple medical problems including IDDM and ESRD on HD presents with non-healing left foot ulcer that she states has [id number] ongoing since March. The patient recently underwent left heel debridement this past March and has been treated with outpatient wound care since the procedure. The patient recently noticed drainage and foul smelling odor coming from the foot and was told to come to the hospital. Pt seen and evaluated in ED and found to have infected left foot ulcer with cellulitis. Pt initiated on IV antibiotic therapy and admitted to medical floor. Consult a vascular surgeon and ID for further recommendation. Renal following for dialysis management. Radiological data: MRI left foot: Since 04/23/2019, ulceration of the plantar surface of the posterior foot has significantly progressed, now to the inferior surface of the posterior calcaneus. Abnormal signal is seen in the plantar portion of the posterior c alcaneus consistent with osteomyelitis. Diffuse circumferential soft tissue edema is present. A small joint effusion is seen in the ankle. Hospitalist Physical exam: GENERAL: well-developed and well-nourished AAF lying on bed appeared to be in no discomfort. HEENT: Normocephalic. Atraumatic. No conjunctival congestion or icterus. Patient has moist mucous membranes. NECK: Supple. Trachea midline. CHEST/LUNGS: Clear to auscultated bilaterally, breathing nonlabored. No wheezes crackles or rhonchi. HEART/CARDIOVASCULAR: Regular in rate and rhythm. S1 and S2 positive. ABDOMEN: Abdomen is soft, nontender. Patient has normal bowel sounds. SKIN: There is no rash. Warm and dry. NEURO: No focal motor deficit. Follows command. MUSCULOSKELETAL: No joint effusion or tenderness. Left leg with a wound dressing EXTRIMITY: No edema, no cyanosis or clubbing. PSYCH: Cooperative. Subjective Date of service: 06/28/19 Principal diagnosis: end-stage renal disease, diabetic foot ulcer with gangrene Interval history: Patient seen and examined. Medical records and medication list reviewed. No acute event overnight noted by the RN. Patient denies any chest pain or difficulty breathing. s/p left foot BKA yesterday Need acute rehab per PT Discussed plan of care at bedside with patient. Objective - Constitutional Vitals: Vital Signs - 12hr 06/27/19 06/27/19 06/28/19 22:59 23:01 00:13 Temperature 99.3 F 99.0 F Pulse Rate 67 Respiratory 18 Rate Blood Pressure 173/71 173/71 Blood Pressure 152/67 [Right] O2 Sat by Pulse 98 97 Oximetry 06/28/19 06/28/19 06/28/19 04:10 10:09 10:12 Temperature 98.3 F Pulse Rate 65 69 69 Respiratory 20 Rate Blood Pressure 176/73 154/70 159/70 Blood Pressure [Right] O2 Sat by Pulse 99 Oximetry - Labs CBC & Chem 7: 06/28/19 05:03 06/28/19 05:03 Labs: Abnormal lab results 06/27/19 06/27/19 06/27/19 Range/Units 12:20 13:25 16:30 WBC (4.5-11.0) K/mm3 Hgb (10.1-14.3) gm/dl POC Hgb 11.6 L (12-17) Hct (30.3-42.9) % POC Hct 34 L (38-51) MCV (79-97) fl MCH (28-32) pg RDW (13.2-15.2) % Seg Neuts % (Manual) (40.0-70.0) % Lymphocytes % (Manual) (13.4-35.0) % Seg Neutrophils # Man (1.8-7.7) K/mm3 Monocytes # (Manual) (0.0-0.8) K/mm3 POC Sodium 136 L (138-146) mmol/L Chloride (98-107) mmol/L POC BUN 39 H (8-26) mg/dl BUN (7-17) mg/dL Creatinine (0.7-1.2) mg/dL Glucose (65-100) mg/dL POC Glucose 176 H 179 H 185 H (70-105) 06/27/19 06/28/19 06/28/19 Range/Units 21:49 05:03 05:03 WBC 12.5 H (4.5-11.0) K/mm3 Hgb 9.0 L (10.1-14.3) gm/dl POC Hgb (12-17) Hct 28.3 L (30.3-42.9) % POC Hct (38-51) MCV 72 L (79-97) fl MCH 23 L (28-32) pg RDW 18.9 H (13.2-15.2) % Seg Neuts % (Manual) 80.0 H (40.0-70.0) % Lymphocytes % (Manual) 12.0 L (13.4-35.0) % Seg Neutrophils # Man 10.0 H (1.8-7.7) K/mm3 Monocytes # (Manual) 0.9 H (0.0-0.8) K/mm3 POC Sodium (138-146) mmol/L Chloride 93.9 L (98-107) mmol/L POC BUN (8-26) mg/dl BUN 45 H (7-17) mg/dL Creatinine 6.5 H (0.7-1.2) mg/dL Glucose 131 H (65-100) mg/dL POC Glucose 177 H (70-105) 06/28/19 Range/Units 08:18 WBC (4.5-11.0) K/mm3 Hgb (10.1-14.3) gm/dl POC Hgb (12-17) Hct (30.3-42.9) % POC Hct (38-51) MCV (79-97) fl MCH (28-32) pg RDW (13.2-15.2) % Seg Neuts % (Manual) (40.0-70.0) % Lymphocytes % (Manual) (13.4-35.0) % Seg Neutrophils # Man (1.8-7.7) K/mm3 Monocytes # (Manual) (0.0-0.8) K/mm3 POC Sodium (138-146) mmol/L Chloride (98-107) mmol/L POC BUN (8-26) mg/dl BUN (7-17) mg/dL Creatinine (0.7-1.2) mg/dL Glucose (65-100) mg/dL POC Glucose 129 H (70-105)
--- NOTE | 2019-06-28 13:23 | Procedure Note ---
Date of procedure: 06/27/19 Pre-op diagnosis: Chronic osteomyelitis, left calcaneus Post-op diagnosis: same Procedure: Left BKA Description of procedure: Pt was placed supine on the OR table. General anesthesia by LMA was obtained. Left thigh and leg were prepped and draped. Skin was incised down to the fascia to create a long posterior flap. Hemostasis was obtained with the Bovie. The anterior compartment musculature was transected with the Bovie. Anterior tibial vessels were clamped, divided and ligated with ties of 0-silk. The periosteum was elevated off of the tibia and fibula and these bones were amputated with a bone saw. The posterior musculature was transected with an amputation knife and the specimen passed off the table. The posterior tibial and peroneal vessels were ligated with stick ties of 2-0 silk. Wound was irrigated with warm saline. Anterior and posterior fascia were approximated with interrupted 0-Vicryl sutures. Skin was approximated with keanu. Xeroform gauze, fluffed 4 X 4's, Kerlix wrap and Coban wrap were applied to the stump. Pt tolerated the procedure well. She was taken to PACU in stable condition. Anesthesia: other (LMA) Surgeon: JOCELINE FLAHERTY Estimated blood loss: 50-100ml Pathology: list (Left leg and foot) Specimen disposition: to lab Condition: stable Disposition: PACU
[2019-06-28] MEDS: ZOFRAN IV PRN (13:30)
[2019-06-28] MEDS: VANCOMYCIN/NS 1 GM/250 ML 1 GM/250 ML BAG IV SCH (16:00)
--- NOTE | 2019-06-28 18:04 | Progress Note ---
Assessment and Plan - Patient Problems (1) Diabetic ulcer of heel Current Visit: Yes Status: Acute Qualifiers: Diabetes mellitus type: type 1 Laterality: left Non-pressure ulcer stage: unspecified non-pressure ulcer stage Qualified Code(s): E10.621 - Type 1 diabetes mellitus with foot ulcer; L97.429 - Non-pressure chronic ulcer of left heel and midfoot with unspecified severity Plan to address problem: Continue antibiotics. Infectious disease networks software consultant on board. MRI of L foot showed evidence of osteomyelitis at posterior calcaneus. s/p L BKA (2) End-stage renal disease on hemodialysis Current Visit: Yes Status: Acute Plan to address problem: Hemodialysis on a Tuesday, and Tuesday schedule. (3) Anemia in chronic kidney disease Current Visit: Yes Status: Acute Plan to address problem: Give Erythropoetin on dialysis. Follow-up hemoglobin (4) Hypertensive chronic kidney disease with stage 5 chronic kidney disease or end stage renal disease Current Visit: No Status: Chronic Plan to address problem: Follow blood pressure on current medications. Subjective Date of service: 06/28/19 Principal diagnosis: end-stage renal disease, diabetic foot ulcer with gangrene Interval history: Pt awake, alert, in NAD Objective - Vital Signs Vital signs: Vital Signs - 12hr 06/28/19 06/28/19 06/28/19 10:09 10:12 12:04 Temperature 98.8 F Pulse Rate 69 69 66 Respiratory 20 Rate Blood Pressure 154/70 159/70 177/81 O2 Sat by Pulse 95 Oximetry 06/28/19 06/28/19 06/28/19 15:30 15:45 16:00 Temperature Pulse Rate 58 L 56 L 60 Respiratory 18 Rate Blood Pressure 179/81 152/70 174/77 O2 Sat by Pulse Oximetry 06/28/19 06/28/19 06/28/19 16:15 16:30 16:45 Temperature Pulse Rate 62 63 63 Respiratory Rate Blood Pressure 183/88 188/83 198/85 O2 Sat by Pulse Oximetry 06/28/19 06/28/19 17:00 17:15 Temperature Pulse Rate 61 63 Respiratory Rate Blood Pressure 156/70 135/73 O2 Sat by Pulse Oximetry - General Appearance General appearance: well-developed, well-nourished, appears stated age EENT: ATNC, PERRL, mucous membranes moist Neck: no JVD Respiratory: Present: Clear to Ascultation Cardiology: regular, S1S2 Gastrointestinal: normoactive bowel sounds Integumentary: no rash, other (no edema ) Neurologic: no focal deficit, alert and oriented x3, strength 5/5, CN 3-12 intact Psychiatric: mood/affect appropriate, cooperative - Lab 06/28/19 05:03 06/28/19 05:03 Most recent lab results Calcium 8.7 mg/dL (8.4-10.2) 06/28/19 05:03 Medications & Allergies - Medications Allergies/Adverse Reactions: Allergies amlodipine Allergy (Verified 04/20/19 11:49) Itching losartan Allergy (Verified 04/20/19 11:49) Itching sulfamethoxazole [From Bactrim] Allergy (Verified 04/20/19 11:49) Rash trimethoprim [From Bactrim] Allergy (Verified 04/20/19 11:49) Rash morphine Adverse Reaction (Verified 04/20/19 11:49) Vomiting Home Medications: Home Medications Medication Instructions Recorded Confirmed Last Taken Type Insulin Lispro [Humalog 100 7 units SUB-Q TIDAC 04/20/19 06/22/19 06/22/19 History UNITS/ML Kwikpen] Insulin Glargine [Lantus VIAL] 15 unit SUB-Q DAILY 30 Days units 04/25/19 06/22/19 06/22/19 Rx Metoprolol [Lopressor TAB] 100 mg PO BID #60 tablet 04/25/19 06/22/19 06/22/19 Rx Zolpidem [Ambien] 5 mg PO QHS PRN #30 tablet 04/25/19 06/22/19 06/11/19 Rx Ondansetron [Zofran Odt] 4 mg PO Q8HR #15 tab.rapdis 06/14/19 06/22/19 06/07/19 Rx oxyCODONE /ACETAMINOPHEN [Percocet 1 tab PO BID PRN #6 tablet 06/14/19 06/22/19 06/14/19 Rx 5/325 mg] Torsemide [Demadex] 60 mg PO DAILY 06/22/19 06/22/19 06/22/19 History Active Medications: Generic Name Dose Route Start Last Admin Trade Name Freq PRN Reason Stop Dose Admin Acetaminophen 650 mg 06/22/19 23:06 Tylenol PO Q4H PRN Pain MILD(1-3)/Fever >100.5/CASTILLO Carvedilol 3.125 mg 06/24/19 22:00 06/28/19 10:12 Coreg PO 3.125 mg BID FATMATA Administration Dextrose 50 ml 06/22/19 16:32 D50w (25gm) Syringe IV PRN PRN Hypoglycemia Heparin Sodium (Porcine) 5,000 unit 06/22/19 22:00 06/28/19 09:45 Heparin SUB-Q 5,000 unit Q12HR FATMATA Administration Hydralazine HCl 10 mg 06/27/19 06:05 06/27/19 06:47 Apresoline IV 10 mg Q4H PRN Administration Blood Pressure Hydromorphone HCl 2 mg 06/27/19 15:16 06/28/19 14:37 Dilaudid IV 2 mg Q3H PRN Administration Pain , Severe (7-10) Cefepime HCl 1 gm in 100 mls @ 200 mls/hr 06/23/19 18:00 06/27/19 18:07 Maxipime/Ns 1 Gm/100 Ml IV 06/29/19 22:00 200 mls/hr QPM FATMATA Administration Protocol Metronidazole 500 mg in 100 mls @ 100 mls/hr 06/23/19 16:00 06/28/19 10:12 Flagyl 500 Mg/100 Ml IV 06/29/19 23:59 100 mls/hr Q8H FATMATA Administration Protocol Vancomycin HCl 1 gm in 250 mls @ 167.007 mls/hr 06/26/19 16:00 06/26/19 21:43 Vancomycin/Ns 1 Gm/250 Ml IV 06/29/19 15:59 167.007 mls/hr TuThSa@1600 FATMATA Administration Sodium Chloride 100 mls @ 999 mls/hr 06/26/19 13:00 Nacl 0.9% IV FRANCOIS PRN Hypotension Insulin Glargine 15 units 06/23/19 10:00 06/28/19 10:18 Lantus SUB-Q Not Given DAILY [facility] Insulin Human Lispro 0 unit 06/22/19 22:00 06/28/19 13:30 Humalog SUB-Q 2 unit ACHS [facility] Administration Protocol Metoclopramide HCl 5 mg 06/28/19 01:38 06/28/19 16:15 Reglan IV 5 mg Q6H PRN Administration Nausea And Vomiting Metoprolol Tartrate 100 mg 06/22/19 22:00 06/28/19 10:09 Lopressor PO 100 mg BID FATMATA Administration Ondansetron HCl 4 mg 06/22/19 22:00 06/28/19 13:36 Zofran Odt PO Not Given Q8HR FATMATA Ondansetron HCl 4 mg 06/22/19 19:27 06/28/19 13:30 Zofran IV 4 mg Q8HR PRN Administration Nausea And Vomiting Sodium Chloride 10 ml 06/23/19 10:00 06/28/19 09:48 Sodium Chloride Flush Syringe 10 Ml IV 10 ml BID FATMATA Administration Sodium Chloride 10 ml 06/22/19 23:06 Sodium Chloride Flush Syringe 10 Ml IV PRN PRN LINE FLUSH Sodium Hypochlorite 1 applic 06/25/19 11:00 06/28/19 10:17 Dakin's Half Strength TP Not Given BID FATMATA Torsemide 60 mg 06/23/19 10:00 06/28/19 10:09 Demadex PO 60 mg QDAY FATMATA Administration Zolpidem Tartrate 5 mg 06/22/19 16:30 06/27/19 23:17 Ambien PO 5 mg QHS PRN Administration Sleep
[2019-06-28] MEDS: MAXIPIME/NS 1 GM/100 ML 1 GM/100 ML BAG IV SCH (23:04)
[2019-06-29] MEDS: AMBIEN PO PRN (00:43)
[2019-06-29] MEDS: FLAGYL 500 MG/100 ML 500 MG/100 ML BAG IV SCH ×4 (00:44→16:10)
[2019-06-29] MEDS: ZOFRAN ODT PO SCH ×2 (06:14→14:30)
--- NOTE | 2019-06-29 08:59 | Progress Note ---
Assessment and Plan MRI images reviewed, shows significant progression of the disease with abnormal signal in the posterior calcaneus consistent with osteomyelitis. There is also a small joint effusion in the ankle. Cultures: Previous cultures reviewed Most recent cultures include: 06/18/2019 left foot: Enterobacter, enterococcus faecalis, A/P: 54-year-old female with ESRD on HD M/W/F, HTN, Insulin-dependent diabetes known to us from her previous hospitalization in March 2019 with left foot diabetic h eel ulcer which was infected, necrotic requiring surgical debridement with culture growth of Klebsiella, Citrobacter, enterococcus. MRI was negative for osteomyelitis, showed cellulitis and patient was discharged on additional 2 weeks of renally adjusted oral levofloxacin and Augmentin. Now with: 1) Left heel acute osteomyelitis of the calcaneum: Heel ulceration has been present for the last several months requiring wound care and now has progressed to osteomyelitis, failed oral antibiotics. Arterial duplex in March 2019 was negative for any occlusive disease. Continue post-HD IV cefepime, vancomycin and flagyl for anaerobic coverage until 06-29-19. s/p left BKA 06/27/19. 2) ESRD on HD: Renally dose antibiotics. 3) Diabetes mellitus type 2: Recommend anti-ischemic control Recs: continue post-HD IV cefepime, vancomycin, Last dose today. continue Flagyl for anaerobic coverage ending 06-29-19, Last dose today clinically stable. ID is signing off. Please call for questions. [facility] M: [id number] O:[phone] Subjective Date of service: 06/29/19 Principal diagnosis: end-stage renal disease, diabetic foot ulcer with gangrene Interval history: Patient seen and examined. Reports continued nausea. No pain or SOB. No fevers. Objective - Exam Narrative Exam: Constitutional: Alert, cooperative. No acute distress Head, Ears, Nose: Normocephalic, atraumatic. External ears, nose normal Eyes: Conjunctivae/corneas clear. No icterus. No ptosis. Neck: Supple, no meningeal signs Cardiovascular: S1, S2 normal. Respiratory: Good air entry, clear to auscultation bilaterally GI: Nausea/vomiting, abdomen Soft, non-tender; bowel sounds normal. No peritoneal signs Musculoskeletal: left BKA. Wrapped. Skin: No rash or abscess Hem/Lymphatic: No palpable cervical or supraclavicular nodes. No lymphangitis Psych: Mood ok. Affect normal Neurological: Awake, alert, oriented. No gross abnormality - Constitutional Vitals: Vital Signs Temp Pulse Resp BP Pulse Ox 99.6 F 68 18 150/70 97 06/29/19 05:20 06/29/19 05:20 06/29/19 05:20 06/29/19 05:20 06/29/19 05:20 Temperature -Last 24 Hours Temperature 99.6 F Temperature 98.5 F Temperature 97.6 F Temperature 98.8 F - Labs CBC & Chem 7: 06/29/19 09:57 06/28/19 05:03 Labs: Abnormal lab results 06/28/19 06/28/19 06/28/19 Range/Units 05:03 11:31 21:22 Seg Neuts % (Manual) 80.0 H (40.0-70.0) % Lymphocytes % (Manual) 12.0 L (13.4-35.0) % Seg Neutrophils # Man 10.0 H (1.8-7.7) K/mm3 Monocytes # (Manual) 0.9 H (0.0-0.8) K/mm3 POC Glucose 153 H 216 H (70-105) 06/29/19 Range/Units 08:00 Seg Neuts % (Manual) (40.0-70.0) % Lymphocytes % (Manual) (13.4-35.0) % Seg Neutrophils # Man (1.8-7.7) K/mm3 Monocytes # (Manual) (0.0-0.8) K/mm3 POC Glucose 212 H (70-105)
[2019-06-29] MEDS: HumaLOG SUB-Q SCH ×3 (10:05→17:18)
[2019-06-29] MEDS: DILAUDID IV PRN (10:05)
[2019-06-29] MEDS: LANTUS SUB-Q SCH (10:07)
[2019-06-29] MEDS: HEPARIN SUB-Q SCH (10:08)
[2019-06-29] MEDS: APRESOLINE PO SCH ×2 (10:08→14:30)
[2019-06-29] MEDS: DEMADEX PO SCH (10:09)
[2019-06-29] MEDS: COREG PO SCH (10:09)
[2019-06-29] MEDS: LOPRESSOR PO SCH (10:10)
[2019-06-29] MEDS: DAKIN'S HALF STRENGTH TP SCH (10:10)
[2019-06-29] MEDS: SODIUM CHLORIDE FLUSH SYRINGE 10 ML IV SCH (10:11)
[2019-06-29 10:36] LABS: Hematocrit 26.6 % (30.3-42.9); Hemoglobin 8.7 gm/dl (10.1-14.3); Mean Corpuscular HGB Conc 33 % (30-34); Mean Corpuscular Volume 72 fl (79-97); Red Blood Count 3.71 M/mm3 (3.65-5.03)
[2019-06-29 10:37] LABS: Mean Platelet Volume 9 fl (6-12); Platelet Count 282 K/mm3 (140-440)
[2019-06-29 11:08] LABS: Total Cells Counted 100
[2019-06-29 11:10] LABS: Basophils % (Manual) 0 % (0.0-1.8)
[2019-06-29 11:11] LABS: Hypochromasia 1+; Platelet Estimate Consistent w Auto
[2019-06-29 11:13] LABS: Schistocytes 1+; Stomatocytes 1+; Target Cells 2+
--- NOTE | 2019-06-29 12:10 | Progress Note ---
Assessment and Plan /Diabetic ulcer of left heel with cellulitis and calcaneus osteomyelitis cont IV antibotic therapy, MR BASILIO showed findings posterior calcaneus consistent with osteomyelitis wound care consult, pain control, Vascular surgery consulted, s/p diagnostic angiogram on 06/25 and not demonstrate any significant disease ID consulted for antibiotic recommendation consulted general surgery - Dr Rowell - s/p BKA 06/27/19 Per ID: continue post-HD IV cefepime, vancomycin until 06-29-19 continue Flagyl for anaerobic coverage ending 06-29-19 /ESRD (end stage renal disease) Nephrology consulted in ED, avoid nephrotoxic agents. /Anemia of CD, monitor h/h / Diabetes type 2 Placed on ADA diet, insulin, accu check, hypoglycemia protocol / HTN (hypertension), uncontrolled monitor bp q shift, continue medical management with po meds. Adjust BP meds as needed / DVT prophylaxis SCD to BLE while in bed. Disposition: pending Acute rehab Brief History: 54yo female with multiple medical problems including IDDM and ESRD on HD presents with non-healing left foot ulcer that she states has [id number] ongoing since March. The patient recently underwent left heel debridement this past March and has been treated with outpatient wound care since the procedure. The patient recently noticed drainage and foul smelling odor coming from the foot and was told to come to the hospital. Pt seen and evaluated in ED and found to have infected left foot ulcer with cellulitis. Pt initiated on IV antibiotic therapy and admitted to medical floor. Consult a vascular surgeon and ID for further recommendation. Renal following for dialysis management. Radiological data: MRI left foot: Since 04/23/2019, ulceration of the plantar surface of the posterior foot has significantly progressed, now to the inferior surface of the posterior calcaneus. Abnormal signal is seen in the plantar portion of the posterior calcaneus consistent with osteomyelitis. Diffuse circumferential soft tissue edema is present. A small joint effusion is seen in the ankle. Hospitalist Physical exam: GENERAL: well-developed and well-nourished AAF lying on bed appeared to be in no discomfort. HEENT: Normocephalic. Atraumatic. No conjunctival congestion or icterus. Patient has moist mucous membranes. NECK: Supple. Trachea midline. CHEST/LUNGS: Clear to auscultated bilaterally, breathing nonlabored. No wheezes crackles or rhonchi. HEART/CARDIOVASCULAR: Regular in rate and rhythm. S1 and S2 positive. ABDOMEN: Abdomen is soft, nontender. Patient has normal bowel sounds. SKIN: There is no rash. Warm and dry. NEURO: No focal motor deficit. Follows command. MUSCULOSKELETAL: No joint effusion or tenderness. Left leg with a wound dressing EXTRIMITY: No edema, no cyanosis or clubbing. PSYCH: Cooperative. Subjective Date of service: 06/29/19 Principal diagnosis: end-stage renal disease, diabetic foot ulcer with gangrene Interval history: Patient seen and examined. Medical records and medication list reviewed. No acute event overnight noted by the RN. Patient denies any chest pain or difficulty breathing. Need acute rehab per PT Discussed plan of care at bedside with patient. Objective - Constitutional Vitals: Vital Signs - 12hr 06/29/19 06/29/19 05:20 10:08 Temperature 99.6 F Pulse Rate 68 71 Respiratory 18 Rate Blood Pressure 150/70 144/64 O2 Sat by Pulse 97 Oximetry - Labs CBC & Chem 7: 06/29/19 09:57 06/28/19 05:03 Labs: Abnormal lab results 06/28/19 06/29/19 06/29/19 Range/Units 21:22 08:00 09:57 Hgb 8.7 L (10.1-14.3) gm/dl Hct 26.6 L (30.3-42.9) % MCV 72 L (79-97) fl MCH 24 L (28-32) pg RDW 19.0 H (13.2-15.2) % Seg Neuts % (Manual) 80.0 H (40.0-70.0) % Lymphocytes % (Manual) 9.0 L (13.4-35.0) % Monocytes % (Manual) 10.0 H (0.0-7.3) % Seg Neutrophils # Man 8.7 H (1.8-7.7) K/mm3 Lymphocytes # (Manual) 1.0 L (1.2-5.4) K/mm3 Monocytes # (Manual) 1.1 H (0.0-0.8) K/mm3 POC Glucose 216 H 212 H (70-105)
[2019-06-29 12:44] VITALS: BP 134/63
--- NOTE | 2019-06-29 15:41 | Progress Note ---
Assessment and Plan - Patient Problems (1) Diabetic ulcer of heel Current Visit: Yes Status: Acute Qualifiers: Qualified Code(s): E10.621 - Type 1 diabetes mellitus with foot ulcer; L97.429 - Non-pressure chronic ulcer of left heel and midfoot with unspecified severity Plan to address problem: Continue antibiotics. Infectious disease salesforce consultant on board. MRI of L foot showed evidence of osteomyelitis at posterior calcaneus. s/p L BKA (2) End-stage renal disease on hemodialysis Current Visit: Yes Status: Acute Plan to address problem: Hemodialysis on a Tuesday, and Tuesday schedule. (3) Anemia in chronic kidney disease Current Visit: Yes Status: Acute Plan to address problem: Give Erythropoetin on dialysis. Follow-up hemoglobin (4) Hypertensive chronic kidney disease with stage 5 chronic kidney disease or end stage renal disease Current Visit: No Status: Chronic Plan to address problem: Follow blood pressure on current medications. Subjective Date of service: 06/29/19 Principal diagnosis: end-stage renal disease, diabetic foot ulcer with gangrene Interval history: Pt awake, alert, in NAD. s/p L BKA Objective - Vital Signs Vital signs: Vital Signs - 12hr 06/29/19 06/29/19 06/29/19 05:20 10:08 12:35 Temperature 99.6 F 99.5 F Pulse Rate 68 71 64 Respiratory 18 19 Rate Blood Pressure 150/70 144/64 134/63 O2 Sat by Pulse 97 97 Oximetry - General Appearance General appearance: well-developed, well-nourished, appears stated age EENT: ATNC, PERRL, mucous membranes moist Neck: no JVD Respiratory: Present: Clear to Ascultation Cardiology: regular, S1S2 Gastrointestinal: normoactive bowel sounds Integumentary: no rash, other (s/p L BKA ) Neurologic: no focal deficit, alert and oriented x3, strength 5/5, CN 3-12 intact Psychiatric: mood/affect appropriate, cooperative - Lab 06/29/19 09:57 06/28/19 05:03 Most recent lab results Calcium 8.7 mg/dL (8.4-10.2) 06/28/19 05:03 Medications & Allergies - Medications Allergies/Adverse Reactions: Allergies amlodipine Allergy (Verified 04/20/19 11:49) Itching losartan Allergy (Verified 04/20/19 11:49) Itching sulfamethoxazole [From Bactrim] Allergy (Verified 04/20/19 11:49) Rash trimethoprim [From Bactrim] Allergy (Verified 04/20/19 11:49) Rash morphine Adverse Reaction (Verified 04/20/19 11:49) Vomiting Home Medications: Home Medications Medication Instructions Recorded Confirmed Last Taken Type Insulin Lispro [Humalog 100 7 units SUB-Q TIDAC 04/20/19 06/22/19 06/22/19 History UNITS/ML Kwikpen] Insulin Glargine [Lantus VIAL] 15 unit SUB-Q DAILY 30 Days units 04/25/19 06/22/19 06/22/19 Rx Metoprolol [Lopressor TAB] 100 mg PO BID #60 tablet 04/25/19 06/22/19 06/22/19 Rx Zolpidem [Ambien] 5 mg PO QHS PRN #30 tablet 04/25/19 06/22/19 06/11/19 Rx Ondansetron [Zofran ODT TAB] 4 mg PO Q8HR #15 tab.rapdis 06/14/19 06/22/19 06/07/19 Rx oxyCODONE /ACETAMINOPHEN [Percocet 1 tab PO BID PRN #6 tablet 06/14/19 06/22/19 06/14/19 Rx 5/325 mg] Torsemide [Demadex] 60 mg PO DAILY 06/22/19 06/22/19 06/22/19 History Carvedilol [Coreg] 3.125 mg PO BID tablet 06/29/19 Unknown Rx hydrALAZINE [Apresoline TAB] 50 mg PO Q8HR tablet 06/29/19 Unknown Rx Active Medications: Generic Name Dose Route Start Last Admin Trade Name Freq PRN Reason Stop Dose Admin Acetaminophen 650 mg 06/22/19 23:06 Tylenol PO Q4H PRN Pain MILD(1-3)/Fever >100.5/CASTILLO Carvedilol 3.125 mg 06/24/19 22:00 06/29/19 10:09 Coreg PO 3.125 mg BID FATMATA Administration Dextrose 50 ml 06/22/19 16:32 D50w (25gm) Syringe IV PRN PRN Hypoglycemia Heparin Sodium (Porcine) 5,000 unit 06/22/19 22:00 06/29/19 10:08 Heparin SUB-Q 5,000 unit Q12HR FATMATA Administration Hydralazine HCl 10 mg 06/27/19 06:05 06/27/19 06:47 Apresoline IV 10 mg Q4H PRN Administration Blood Pressure Hydralazine HCl 50 mg 06/29/19 09:00 06/29/19 14:30 Apresoline PO 50 mg Q8HR FATMATA Administration Hydromorphone HCl 2 mg 06/27/19 15:16 06/29/19 10:05 Dilaudid IV 2 mg Q3H PRN Administration Pain , Severe (7-10) Cefepime HCl 1 gm in 100 mls @ 200 mls/hr 06/23/19 18:00 06/28/19 23:04 Maxipime/Ns 1 Gm/100 Ml IV 06/29/19 22:00 200 mls/hr QPM FATMATA Administration Protocol Metronidazole 500 mg in 100 mls @ 100 mls/hr 06/23/19 16:00 06/29/19 10:14 Flagyl 500 Mg/100 Ml IV 06/29/19 23:59 100 mls/hr Q8H FATMATA Administration Protocol Vancomycin HCl 1 gm in 250 mls @ 167.007 mls/hr 06/26/19 16:00 06/28/19 16:00 Vancomycin/Ns 1 Gm/250 Ml IV 06/29/19 15:59 Not Given [id number] Sodium Chloride 100 mls @ 999 mls/hr 06/26/19 13:00 Nacl 0.9% IV FRANCOIS PRN Hypotension Insulin Glargine 15 units 06/23/19 10:00 06/29/19 10:07 Lantus SUB-Q 15 units DAILY FATMATA Administration Insulin Human Lispro 0 unit 06/22/19 22:00 06/29/19 13:02 Humalog SUB-Q 2 unit ACHS FATMATA Administration Protocol Metoclopramide HCl 5 mg 06/28/19 01:38 06/28/19 16:15 Reglan IV 5 mg Q6H PRN Administration Nausea And Vomiting Metoprolol Tartrate 100 mg 06/22/19 22:00 06/29/19 10:10 Lopressor PO 100 mg BID FATMATA Administration Ondansetron HCl 4 mg 06/22/19 22:00 06/29/19 14:30 Zofran Odt PO 4 mg Q8HR FATMATA Administration Ondansetron HCl 4 mg 06/22/19 19:27 06/28/19 13:30 Zofran IV 4 mg Q8HR PRN Administration Nausea And Vomiting Sodium Chloride 10 ml 06/23/19 10:00 06/29/19 10:11 Sodium Chloride Flush Syringe 10 Ml IV 10 ml BID FATMATA Administration Sodium Chloride 10 ml 06/22/19 23:06 Sodium Chloride Flush Syringe 10 Ml IV PRN PRN LINE FLUSH Torsemide 60 mg 06/23/19 10:00 06/29/19 10:09 Demadex PO 60 mg QDAY FATMATA Administration Zolpidem Tartrate 5 mg 06/22/19 16:30 06/29/19 00:43 Ambien PO 5 mg QHS PRN Administration Sleep
--- NOTE | 2019-06-29 15:41 | Discharge Summary ---
Providers - Providers Date of Admission: 06/22/19 23:06 Date of discharge: 06/29/19 Attending physician: MAGALI WEST 06/22/19 16:33 Consult to Wound/ET Nurse [CONS] Routine Reason For Exam: wound eval 06/22/19 16:39 Consult to Physician [CONS] Routine Comment: Consulting Provider: MERLE TAO Physician Instructions: Reason For Exam: ESRD 06/22/19 16:58 Consult to Physician [CONS] Routine Comment: Consulting Provider: ANSHUL HAN Physician Instructions: Reason For Exam: Left heel ulcer infection 06/23/19 11:26 Consult to Physician [CONS] Routine Comment: Consulting Provider: CALLIE SERRATO Physician Instructions: Reason For Exam: Patient with gangrene. Eval PVD 06/23/19 12:33 Consult to Physician [CONS] Routine Comment: Consulting Provider: CARLENE HOLGUIN Physician Instructions: Reason For Exam: disbetic foot ulcer 06/24/19 12:32 Consult to Physician [CONS] Routine Comment: Consulting Provider: OSIRIS RAMOS Physician Instructions: Reason For Exam: diabetic foot ulcer 06/24/19 14:51 Consult to Case Management [CONS] Routine Services Needed at Discharge: DME Equipment Notified:: yes Additional Physician Instructions: Mid-calf boot (DME) 06/25/19 15:06 Consult to Physician [CONS] Routine Comment: Consulting Provider: JOCELINE ROWELL Physician Instructions: Reason For Exam: LLE wound, evaluation for amputation 06/27/19 22:32 Physical Therapy Evaluation and Treat [CONS] Routine Comment: Reason For Exam: placement 06/29/19 10:07 Occupational Therapy Evaluate and Treat [CONS] Routine Comment: Reason For Exam: general weakness Primary care physician: BOOK SHELVER Hospitalization Condition: Fair Hospital course: 54yo female with multiple medical problems including IDDM and ESRD on HD presents with non-healing left foot ulcer that she states has [id number] ongoing since March. The patient recently underwent left heel debridement this past March and has been treated with outpatient wound care since the procedure. The patient recently noticed drainage and foul smelling odor coming from the foot and was told to come to the hospital. Pt seen and evaluated in ED and found to have infected left foot ulcer with cellulitis. Pt initiated on IV antibiotic therapy and admitted to medical floor. Consult a vascular surgeon and ID for further recommendation. Renal following for dialysis management. Radiological data: MRI left foot: Since 04/23/2019, ulceration of the plantar surface of the posterior foot has sig nificantly progressed, now to the inferior surface of the posterior calcaneus. Abnormal signal is seen in the plantar portion of the posterior calcaneus consistent with osteomyelitis. Diffuse circumferential soft tissue edema is present. A small joint effusion is seen in the ankle. Discharge diagnosis and management: /Diabetic ulcer of left heel with cellulitis and calcaneus osteomyelitis cont IV antibotic therapy, MR LLE showed findings posterior calcaneus consistent with osteomyelitis wound care consult, pain control, Vascular surgery consulted, s/p diagnostic angiogram on 06/25 and not demonstrate any significant disease ID consulted for antibiotic recommendation consulted general surgery - Dr Rowell - s/p BKA 06/27/19 Per ID: continue post-HD IV cefepime, vancomycin until 06-29-19 continue Flagyl for anaerobic coverage ending 06-29-19 /ESRD (end stage renal disease) Nephrology consulted in ED, avoid nephrotoxic agents. /Anemia of CD, monitor h/h / Diabetes type 2 Placed on ADA diet, insulin, accu check, hypoglycemia protocol / HTN (hypertension), uncontrolled monitor bp q shift, continue medical management with po meds. Adjust BP meds as needed / DVT prophylaxis SCD to BLE while in bed. Disposition: Acute rehab Hospitalist Physical exam: GENERAL: well-developed and well-nourished AAF lying on bed appeared to be in no discomfort. HEENT: Normocephalic. Atraumatic. No conjunctival congestion or icterus. Patient has moist mucous membranes. NECK: Supple. Trachea midline. CHEST/LUNGS: Clear to auscultated bilaterally, breathing nonlabored. No wheezes crackles or rhonchi. HEART/CARDIOVASCULAR: Regular in rate and rhythm. S1 and S2 positive. ABDOMEN: Abdomen is soft, nontender. Patient has normal bowel sounds. SKIN: There is no rash. Warm and dry. NEURO: No focal motor deficit. Follows command. MUSCULOSKELETAL: No joint effusion or tenderness. Left leg with a wound dressing EXTRIMITY: No edema, no cyanosis or clubbing. PSYCH: Cooperative. Disposition: DC/TX-70 ANOTHER TYPE HLTHCARE Time spent for discharge: 34 minutes Core Measure Documentation - Palliative Care Palliative Care/ Comfort Measures: Not Applicable - Core Measures Any of the following diagnoses?: none Exam - Constitutional Vitals: Temp Pulse Resp BP Pulse Ox 99.5 F 64 19 134/63 97 06/29/19 12:35 06/29/19 12:35 06/29/19 12:35 06/29/19 12:35 06/29/19 12:35 Plan Activity: up only with assistance, fall precautions Weight Bearing Status: Non-Weight Bearing (on left leg) Diet: renal Wound: per your surgeon's advice Follow up with: DORY GUZMAN MD [Primary Care Provider] - 3-5 Days CALLIE SERRATO MD [Staff Physician] - 6 Weeks
[2019-06-29] MEDS: MAXIPIME/NS 1 GM/100 ML 1 GM/100 ML BAG IV SCH (17:17)
== END 2019-06-29 18:30 | DRG 239 ==
LOC: ED 12:19 → 3A 23:06
PROVIDERS: ADMIT Internal Medicine; ATTEND Internal Medicine
PROC: 5A1D70Z Performance of Urinary Filtration, Intermittent, Less than 6 Hours Per Day (ICD-10-PCS; 2019-06-23)
PROC: B41D1ZZ Fluoroscopy of Aorta and Bilateral Lower Extremity Arteries using Low Osmolar Contrast (ICD-10-PCS; principal; 2019-06-25)
PROC: 5A1D70Z Performance of Urinary Filtration, Intermittent, Less than 6 Hours Per Day (ICD-10-PCS; 2019-06-26)
PROC: 0Y6J0Z1 Detachment at Left Lower Leg, High, Open Approach (ICD-10-PCS; 2019-06-27)
PROC: 5A1D70Z Performance of Urinary Filtration, Intermittent, Less than 6 Hours Per Day (ICD-10-PCS; 2019-06-28)
DX: E11.52 Type 2 diabetes mellitus with diabetic peripheral angiopathy with gangrene (principal); N18.6 End stage renal disease; M86.172 Other acute osteomyelitis, left ankle and foot; L97.429 Non-pressure chronic ulcer of left heel and midfoot with unspecified severity; I12.0 Hypertensive chronic kidney disease with stage 5 chronic kidney disease or end stage renal disease; L03.116 Cellulitis of left lower limb; K86.1 Other chronic pancreatitis; I96 Gangrene, not elsewhere classified; E11.69 Type 2 diabetes mellitus with other specified complication; E11.621 Type 2 diabetes mellitus with foot ulcer; E11.22 Type 2 diabetes mellitus with diabetic chronic kidney disease; Z96.651 Presence of right artificial knee joint; D63.1 Anemia in chronic kidney disease; F17.200 Nicotine dependence, unspecified, uncomplicated; Z87.01 Personal history of pneumonia (recurrent); Z79.4 Long term (current) use of insulin; Z82.49 Family history of ischemic heart disease and other diseases of the circulatory system; Z83.3 Family history of diabetes mellitus; Z88.2 Allergy status to sulfonamides; Z88.5 Allergy status to narcotic agent; Z79.899 Other long term (current) drug therapy
CPT/HCPCS: 36247; 36415; 75625; 75710; 76937; 80048; 80053; 80202; 82140; 82803; 82962; 85007; 85025; 85610; 86140; 87040; 87045; 87116; 87493; 88307; 88311; G0378; A6260; C1725; C1760; C1769; C1887; J0360; J0692; J1170; J1450; J1644; J1815; J2250; J2405; J2704; J2765; J3010; J3370; J7030; J7040; J7050; Q0162; Q9967

== ENCOUNTER 2019-08-15 10:25 | Outpatient (CLI) | payer MEDICARE ==
[2019-08-15] MEDS ORDERED: XYLOCAINE TOPICAL 4% TP ONE (10:36)
[2019-08-15] MEDS ORDERED: SILVER NITRATE TP ONE (12:12)
== END 2019-08-15 10:26 | disposition home or self-care (01) ==
LOC: WOUND 10:25
PROVIDERS: ATTEND Surgery
DX: E11.621 Type 2 diabetes mellitus with foot ulcer (principal); L97.424 Non-pressure chronic ulcer of left heel and midfoot with necrosis of bone; L89.899 Pressure ulcer of other site, unspecified stage; L97.522 Non-pressure chronic ulcer of other part of left foot with fat layer exposed; K21.9 Gastro-esophageal reflux disease without esophagitis; I10 Essential (primary) hypertension; Z87.891 Personal history of nicotine dependence; Z99.2 Dependence on renal dialysis

== ENCOUNTER 2019-08-16 08:05 | Outpatient (CLI) | payer MEDICARE | END 2019-08-16 08:06 | disposition home or self-care (01) | LOC: WOUND 08:05 | PROVIDERS: ATTEND Surgery | DX: E11.621 Type 2 diabetes mellitus with foot ulcer (principal); L97.424 Non-pressure chronic ulcer of left heel and midfoot with necrosis of bone; L89.899 Pressure ulcer of other site, unspecified stage; L97.522 Non-pressure chronic ulcer of other part of left foot with fat layer exposed; K21.9 Gastro-esophageal reflux disease without esophagitis; I10 Essential (primary) hypertension; Z87.891 Personal history of nicotine dependence; Z99.2 Dependence on renal dialysis | CPT/HCPCS: 82962; 99183; G0277 ==

== ENCOUNTER 2019-08-17 07:56 | Outpatient (CLI) | payer MEDICARE | END 2019-08-17 07:57 | disposition home or self-care (01) | LOC: WOUND 07:56 | PROVIDERS: ATTEND Surgery | DX: E11.621 Type 2 diabetes mellitus with foot ulcer (principal); L97.423 Non-pressure chronic ulcer of left heel and midfoot with necrosis of muscle; L97.413 Non-pressure chronic ulcer of right heel and midfoot with necrosis of muscle; L97.522 Non-pressure chronic ulcer of other part of left foot with fat layer exposed; K21.9 Gastro-esophageal reflux disease without esophagitis; I10 Essential (primary) hypertension; Z87.891 Personal history of nicotine dependence; Z99.2 Dependence on renal dialysis | CPT/HCPCS: 82962; G0277; 99183 ==

== ENCOUNTER 2019-08-20 07:55 | Outpatient (CLI) | payer MEDICARE | END 2019-08-20 07:56 | disposition home or self-care (01) | LOC: WOUND 07:55 | PROVIDERS: ATTEND Surgery | DX: E11.621 Type 2 diabetes mellitus with foot ulcer (principal); L97.423 Non-pressure chronic ulcer of left heel and midfoot with necrosis of muscle; L97.522 Non-pressure chronic ulcer of other part of left foot with fat layer exposed; L97.413 Non-pressure chronic ulcer of right heel and midfoot with necrosis of muscle; I10 Essential (primary) hypertension; Z87.891 Personal history of nicotine dependence; Z99.2 Dependence on renal dialysis | CPT/HCPCS: 82962; G0277; 99183 ==

== ENCOUNTER 2019-08-21 07:49 | Outpatient (CLI) | payer MEDICARE | END 2019-08-21 07:50 | disposition home or self-care (01) | LOC: WOUND 07:49 | PROVIDERS: ATTEND Surgery | DX: E11.621 Type 2 diabetes mellitus with foot ulcer (principal); L97.423 Non-pressure chronic ulcer of left heel and midfoot with necrosis of muscle; L97.522 Non-pressure chronic ulcer of other part of left foot with fat layer exposed; L97.413 Non-pressure chronic ulcer of right heel and midfoot with necrosis of muscle; I10 Essential (primary) hypertension; Z87.891 Personal history of nicotine dependence; Z99.2 Dependence on renal dialysis | CPT/HCPCS: 82962; 99183; G0277 ==

== ENCOUNTER 2019-08-22 07:47 | Outpatient (CLI) | payer MEDICARE ==
[2019-08-22] MEDS ORDERED: XYLOCAINE TOPICAL 4% TP ONE (11:30)
== END 2019-08-22 07:48 | disposition home or self-care (01) ==
LOC: WOUND 07:47
PROVIDERS: ATTEND Surgery
DX: E11.621 Type 2 diabetes mellitus with foot ulcer (principal); L97.423 Non-pressure chronic ulcer of left heel and midfoot with necrosis of muscle; L97.522 Non-pressure chronic ulcer of other part of left foot with fat layer exposed; L97.413 Non-pressure chronic ulcer of right heel and midfoot with necrosis of muscle; I10 Essential (primary) hypertension; Z87.891 Personal history of nicotine dependence; Z99.2 Dependence on renal dialysis
CPT/HCPCS: 11043; 11046; G0277; 82962; 99183

== ENCOUNTER 2019-08-23 07:49 | Outpatient (CLI) | payer OTHER, MEDICARE | END 2019-08-23 07:50 | disposition home or self-care (01) | LOC: WOUND 07:49 | PROVIDERS: ATTEND Surgery | DX: E11.621 Type 2 diabetes mellitus with foot ulcer (principal); L97.423 Non-pressure chronic ulcer of left heel and midfoot with necrosis of muscle; L97.522 Non-pressure chronic ulcer of other part of left foot with fat layer exposed; L97.413 Non-pressure chronic ulcer of right heel and midfoot with necrosis of muscle; I10 Essential (primary) hypertension; Z87.891 Personal history of nicotine dependence; Z99.2 Dependence on renal dialysis | CPT/HCPCS: 82962; 99183; G0277 ==

== ENCOUNTER 2019-08-24 07:48 | Outpatient (CLI) | payer MEDICARE, OTHER | END 2019-08-24 07:49 | disposition home or self-care (01) | LOC: WOUND 07:48 | PROVIDERS: ATTEND Surgery | DX: E11.621 Type 2 diabetes mellitus with foot ulcer (principal); L97.423 Non-pressure chronic ulcer of left heel and midfoot with necrosis of muscle; L97.522 Non-pressure chronic ulcer of other part of left foot with fat layer exposed; L97.412 Non-pressure chronic ulcer of right heel and midfoot with fat layer exposed; I10 Essential (primary) hypertension; Z87.891 Personal history of nicotine dependence; Z99.2 Dependence on renal dialysis | CPT/HCPCS: 99183; G0277 ==

== ENCOUNTER 2019-08-28 07:58 | Outpatient (CLI) | payer MEDICARE | END 2019-08-28 07:59 | disposition home or self-care (01) | LOC: WOUND 07:58 | PROVIDERS: ATTEND Surgery | DX: E11.621 Type 2 diabetes mellitus with foot ulcer (principal); L97.423 Non-pressure chronic ulcer of left heel and midfoot with necrosis of muscle; L97.522 Non-pressure chronic ulcer of other part of left foot with fat layer exposed; L97.412 Non-pressure chronic ulcer of right heel and midfoot with fat layer exposed; I10 Essential (primary) hypertension; Z87.891 Personal history of nicotine dependence; Z99.2 Dependence on renal dialysis | CPT/HCPCS: 82962; G0277; 99183 ==

== ENCOUNTER 2019-08-29 07:55 | Outpatient (CLI) | payer MEDICARE | END 2019-08-29 07:56 | disposition home or self-care (01) | LOC: WOUND 07:55 | PROVIDERS: ATTEND Surgery | DX: E11.621 Type 2 diabetes mellitus with foot ulcer (principal); L97.423 Non-pressure chronic ulcer of left heel and midfoot with necrosis of muscle; L97.522 Non-pressure chronic ulcer of other part of left foot with fat layer exposed; L97.412 Non-pressure chronic ulcer of right heel and midfoot with fat layer exposed; I10 Essential (primary) hypertension; Z87.891 Personal history of nicotine dependence; Z99.2 Dependence on renal dialysis | CPT/HCPCS: 11043; 11046; G0277; 82962; 99183 ==

== ENCOUNTER 2019-08-30 07:57 | Outpatient (CLI) | payer MEDICARE | END 2019-08-30 07:58 | disposition home or self-care (01) | LOC: WOUND 07:57 | PROVIDERS: ATTEND Surgery | DX: E11.621 Type 2 diabetes mellitus with foot ulcer (principal); L97.423 Non-pressure chronic ulcer of left heel and midfoot with necrosis of muscle; L97.522 Non-pressure chronic ulcer of other part of left foot with fat layer exposed; L97.412 Non-pressure chronic ulcer of right heel and midfoot with fat layer exposed; I10 Essential (primary) hypertension; Z87.891 Personal history of nicotine dependence; Z99.2 Dependence on renal dialysis | CPT/HCPCS: 82962; G0277; 99183 ==

== ENCOUNTER 2019-08-31 07:50 | Outpatient (CLI) | payer OTHER, MEDICARE | END 2019-08-31 07:51 | disposition home or self-care (01) | LOC: WOUND 07:50 | PROVIDERS: ATTEND Surgery | DX: E11.621 Type 2 diabetes mellitus with foot ulcer (principal); L97.522 Non-pressure chronic ulcer of other part of left foot with fat layer exposed; L97.423 Non-pressure chronic ulcer of left heel and midfoot with necrosis of muscle; L97.413 Non-pressure chronic ulcer of right heel and midfoot with necrosis of muscle; I10 Essential (primary) hypertension; Z87.891 Personal history of nicotine dependence; Z99.2 Dependence on renal dialysis | CPT/HCPCS: 82962; G0277; 99183 ==

== ENCOUNTER 2019-09-03 07:56 | Outpatient (CLI) | payer OTHER, MEDICARE | END 2019-09-03 07:57 | disposition home or self-care (01) | LOC: WOUND 07:56 | PROVIDERS: ATTEND Surgery | DX: E11.621 Type 2 diabetes mellitus with foot ulcer (principal); L97.522 Non-pressure chronic ulcer of other part of left foot with fat layer exposed; L97.423 Non-pressure chronic ulcer of left heel and midfoot with necrosis of muscle; L97.413 Non-pressure chronic ulcer of right heel and midfoot with necrosis of muscle; I10 Essential (primary) hypertension; Z87.891 Personal history of nicotine dependence; Z99.2 Dependence on renal dialysis | CPT/HCPCS: 82962 ==

== ENCOUNTER 2019-09-03 09:08 | Emergency (ER) | payer MEDICARE ==
[2019-09-03] MEDS ORDERED: INSULIN REGULAR, HUMAN 100 UNITS/1 ML SUB-Q ONE (09:29)
--- NOTE | 2019-09-03 09:31 | Emergency Department Report ---
ED General Adult HPI - General Chief complaint: Hyperglycemia Stated complaint: HYPERGLYCEMIA Time Seen by Provider: 09/03/19 09:16 Source: patient, EMS Mode of arrival: Stretcher Limitations: Physical Limitation - History of Present Illness Initial comments: 54-year-old -[place] female patient with history of diabetes, hypertension, ESRD on dialysis, and left leg amputee presents via EMS from her wound care clinic for elevated an blood glucose of 423. He shouldn't follows with Dr. Travis Rowell. Patient states compliance with her diabetic medications including Lantus 14 units nightly and Humalog 7 units 3 times daily. She states she did take her Humalog this morning. She denies any fever/chills/sweats, chest pain, shortness of breath, or abdominal pain. She states chronic swelling in her legs. She does report her abdomen feeling a little full. Patient receives dialysis Tuesday and Tuesday, states she did receive dialysis this past Tuesday. Patient appears very drowsy during history and examadmits to taking a Xanax prior to arrival. - Related Data Previous Rx's Medication Instructions Recorded Last Taken Type Ascorbic Acid [Vitamin C] 500 mg PO BID #14 tablet 07/13/19 Unknown Rx Epoetin Jacoby 10,000 Unit [Procrit] 5,000 unit IV FRANCOIS PRN vial 07/13/19 Unknown Rx Ferrous Sulfate [Feosol 325 MG tab] 325 mg PO BID #14 tablet 07/13/19 Unknown Rx Folic Acid [Folvite] 1 mg PO QDAY #7 tablet 07/13/19 Unknown Rx Gabapentin 100 mg PO BID #60 capsule 07/13/19 Unknown Rx Insulin Glargine [Lantus VIAL] 15 units SUB-Q QHS 30 Days units 07/13/19 Unknown Rx Lispro Insulin [HumaLOG] See Protocol SUB-Q ACHS 30 Days 07/13/19 Unknown Rx units Metoclopramide [Reglan TAB] 5 mg PO ACHS 30 Days tablet 07/13/19 Unknown Rx Metoprolol [Lopressor TAB] 100 mg PO BID #60 tablet 07/13/19 Unknown Rx NIFEdipine XL [Procardia Xl] 60 mg PO QDAY #30 tablet 07/13/19 Unknown Rx Polyethylene Glycol 3350 [Miralax 17 gm PO QDAY 30 Days powd.pack 07/13/19 U nknown Rx 3350] Torsemide [Demadex] 60 mg PO DAILY 30 Days tablet 07/13/19 Unknown Rx Zolpidem [Ambien] 5 mg PO QHS PRN #15 tablet 07/13/19 Unknown Rx cloNIDine [Catapres] 0.1 mg PO Q12H PRN #60 tablet 07/13/19 Unknown Rx hydrALAZINE [Apresoline TAB] 100 mg PO Q8HR #90 tab 07/13/19 Unknown Rx oxyCODONE [roxiCODONE] 5 mg PO Q4H PRN #20 tablet 07/13/19 Unknown Rx Allergies Allergy/AdvReac Type Severity Reaction Status Date / Time amlodipine Allergy Itching Verified 04/20/19 11:49 losartan Allergy Itching Verified 04/20/19 11:49 sulfamethoxazole Allergy Rash Verified 04/20/19 11:49 [From Bactrim] trimethoprim [From Bactrim] Allergy Rash Verified 04/20/19 11:49 morphine AdvReac Vomiting Verified 04/20/19 11:49 ED Review of Systems ROS: Stated complaint: HYPERGLYCEMIA Other details as noted in HPI Constitutional: denies: chills, fever Eyes: denies: vision change ENT: denies: throat pain Respiratory: denies: cough, shortness of breath, wheezing Cardiovascular: denies: chest pain, palpitations Endocrine: denies: excessive sweating Gastrointestinal: nausea. denies: abdominal pain, vomiting Musculoskeletal: denies: back pain Skin: lesions (chronic right foot wound) Neurological: denies: headache, weakness Psychiatric: denies: depression ED Past Medical Hx - Past Medical History Previous Medical History?: Yes Hx Hypertension: Yes (Had cardiac eval 3-4 years ago for K TX list) Hx Congestive Heart Failure: No Hx Diabetes: Yes Hx Renal Disease: Yes (HD TTS) Hx Asthma: No Hx COPD: No Additional medical history: HLD, pancreatitis - Surgical History Past Surgical History?: Yes Additional Surgical History: Left arm Fistula, ERCP, right knee replacement; left BKA - Social History Smoking Status: Current Every Day Smoker - Medications Home Medications: Home Medications Medication Instructions Recorded Confirmed Last Taken Type Ascorbic Acid [Vitamin C] 500 mg PO BID #14 tablet 07/13/19 Unknown Rx Epoetin Jacoby 10,000 Unit [Procrit] 5,000 unit IV FRANCOIS PRN vial 07/13/19 Unknown Rx Ferrous Sulfate [Feosol 325 MG tab] 325 mg PO BID #14 tablet 07/13/19 Unknown Rx Folic Acid [Folvite] 1 mg PO QDAY #7 tablet 07/13/19 Unknown Rx Gabapentin 100 mg PO BID #60 capsule 07/13/19 Unknown Rx Insulin Glargine [Lantus VIAL] 15 units SUB-Q QHS 30 Days units 07/13/19 Unknown Rx Lispro Insulin [HumaLOG] See Protocol SUB-Q ACHS 30 Days 07/13/19 Unknown Rx units Metoclopramide [Reglan TAB] 5 mg PO ACHS 30 Days tablet 07/13/19 Unknown Rx Metoprolol [Lopressor TAB] 100 mg PO BID #60 tablet 07/13/19 Unknown Rx NIFEdipine XL [Procardia Xl] 60 mg PO QDAY #30 tablet 07/13/19 Unknown Rx Polyethylene Glycol 3350 [Miralax 17 gm PO QDAY 30 Days powd.pack 07/13/19 Unknown Rx 3350] Torsemide [Demadex] 60 mg PO DAILY 30 Days tablet 07/13/19 Unknown Rx Zolpidem [Ambien] 5 mg PO QHS PRN #15 tablet 07/13/19 Unknown Rx cloNIDine [Catapres] 0.1 mg PO Q12H PRN #60 tablet 07/13/19 Unknown Rx hydrALAZINE [Apresoline TAB] 100 mg PO Q8HR #90 tab 07/13/19 Unknown Rx oxyCODONE [roxiCODONE] 5 mg PO Q4H PRN #20 tablet 07/13/19 Unknown Rx ED Physical Exam - General Limitations: Physical Limitation General appearance: in no apparent distress, lethargic (admits to taking a Xanax) - Head Head exam: Present: atraumatic, normocephalic - Eye Eye exam: Present: normal appearance - ENT ENT exam: Present: normal exam - Neck Neck exam: Present: normal inspection - Respiratory Respiratory exam: Present: wheezes. Absent: respiratory distress, rales, rhonchi, stridor, chest wall tenderness, accessory muscle use - Cardiovascular Cardiovascular Exam: Present: regular rate, normal rhythm - GI/Abdominal GI/Abdominal exam: Present: soft, distended (mild, he should states chronic). Absent: tenderness, guarding, rebound, rigid - Extremities Exam Extremities exam: Present: other (pitting edema noted and right lower extremity, left lower extremity is amputated) - Neurological Exam Neurological exam: Present: alert, oriented X3 - Psychiatric Psychiatric exam: Present: normal affect - Skin Skin exam: Present: warm, dry, intact, normal color. Absent: rash, diaphoretic ED Course Vital Signs 09/03/19 09/03/19 09/03/19 09:16 09:17 09:30 Temperature 98.3 F Pulse Rate 62 Respiratory 20 Rate Blood Pressure 165/82 165/82 172/80 Blood Pressure [Left] O2 Sat by Pulse 96 97 97 Oximetry 09/03/19 09/03/19 09/03/19 10:00 11:23 15:34 Temperature Pulse Rate 62 66 Respiratory 17 Rate Blood Pressure 169/83 185/89 Blood Pressure 169/78 [Left] O2 Sat by Pulse 97 99 Oximetry 09/03/19 09/03/19 16:16 16:29 Temperature Pulse Rate 81 Respiratory 16 Rate Blood Pressure 197/90 Blood Pressure 173/87 [Left] O2 Sat by Pulse 95 Oximetry ED Medical Decision Making - Lab Data Result diagrams: 09/03/19 09:36 09/03/19 09:36 Lab Results 09/03/19 09/03/19 09/03/19 Range/Units 09:33 09:36 09:36 WBC 13.1 H (4.5-11.0) K/mm3 RBC 4.27 (3.65-5.03) M/mm3 Hgb 9.8 L (10.1-14.3) gm/dl Hct 29.8 L (30.3-42.9) % MCV 70 L (79-97) fl MCH 23 L (28-32) pg MCHC 33 (30-34) % RDW 18.7 H (13.2-15.2) % Plt Count 252 (140-440) K/mm3 VBG pH (7.320-7.420) Sodium 135 L (137-145) mmol/L Potassium 4.6 (3.6-5.0) mmol/L Chloride 90.9 L (98-107) mmol/L Carbon Dioxide 22 (22-30) mmol/L Anion Gap 27 mmol/L BUN 47 H (7-17) mg/dL Creatinine 5.6 H (0.7-1.2) mg/dL Estimated GFR 10 ml/min BUN/Creatinine Ratio 8 % Glucose 361 H (65-100) mg/dL POC Glucose 351 H (70-105) Ketones Quantitative (Negative) Calcium 10.0 (8.4-10.2) mg/dL Total Bilirubin (0.1-1.2) mg/dL Direct Bilirubin (0-0.2) mg/dL Indirect Bilirubin mg/dL AST (5-40) units/L ALT (7-56) units/L Alkaline Phosphatase (35-129) units/L Total Protein (6.3-8.2) g/dL Albumin (3.9-5) g/dL Albumin/Globulin Ratio % 09/03/19 09/03/19 09/03/19 Range/Units 09:44 10:58 11:51 WBC (4.5-11.0) K/mm3 RBC (3.65-5.03) M/mm3 Hgb (10.1-14.3) gm/dl Hct (30.3-42.9) % MCV (79-97) fl MCH (28-32) pg MCHC (30-34) % RDW (13.2-15.2) % Plt Count (140-440) K/mm3 VBG pH (7.320-7.420) Sodium (137-145) mmol/L Potassium (3.6-5.0) mmol/L Chloride (98-107) mmol/L Carbon Dioxide (22-30) mmol/L Anion Gap mmol/L BUN (7-17) mg/dL Creatinine (0.7-1.2) mg/dL Estimated GFR ml/min BUN/Creatinine Ratio % Glucose (65-100) mg/dL POC Glucose 340 H 333 H (70-105) Ketones Quantitative (Negative) Calcium (8.4-10.2) mg/dL Total Bilirubin 2.20 H (0.1-1.2) mg/dL Direct Bilirubin 1.6 H (0-0.2) mg/dL Indirect Bilirubin 0.6 mg/dL AST 24 (5-40) units/L ALT 28 (7-56) units/L Alkaline Phosphatase 652 H (35-129) units/L Total Protein 8.1 (6.3-8.2) g/dL Albumin 3.7 L (3.9-5) g/dL Albumin/Globulin Ratio 0.8 % 09/03/19 09/03/19 09/03/19 Range/Units 13:02 13:06 13:06 WBC (4.5-11.0) K/mm3 RBC (3.65-5.03) M/mm3 Hgb (10.1-14.3) gm/dl Hct (30.3-42.9) % MCV (79-97) fl MCH (28-32) pg MCHC (30-34) % RDW (13.2-15.2) % Plt Count (140-440) K/mm3 VBG pH 7.377 (7.320-7.420) Sodium (137-145) mmol/L Potassium (3.6-5.0) mmol/L Chloride (98-107) mmol/L Carbon Dioxide (22-30) mmol/L Anion Gap mmol/L BUN (7-17) mg/dL Creatinine (0.7-1.2) mg/dL Estimated GFR ml/min BUN/Creatinine Ratio % Glucose (65-100) mg/dL POC Glucose 238 H (70-105) Ketones Quantitative Negative (Negative) Calcium (8.4-10.2) mg/dL Total Bilirubin (0.1-1.2) mg/dL Direct Bilirubin (0-0.2) mg/dL Indirect Bilirubin mg/dL AST (5-40) units/L ALT (7-56) units/L Alkaline Phosphatase (35-129) units/L Total Protein (6.3-8.2) g/dL Albumin (3.9-5) g/dL Albumin/Globulin Ratio % - Radiology Data Radiology results: report reviewed CHEST 1 VIEW INDICATION: abnormal breath sounds. COMPARISON: 07/02/2019 FINDINGS: Support devices: None. Heart: Borderline to mild cardiomegaly is stable. Lungs/Pleura: No acute air space or interstitial disease. Minor linear scarring in the lingula is unchanged. Additional findings: None. IMPRESSION: No acute findings. Borderline cardiomegaly. - Medical Decision Making Patient sent here from her wound clinic for hyperglycemia. Her blood glucose was noted to be 423 and office. Blood glucose on arrival here was 350. Patient states compliance with her Lantus and Humalog. She denies any chest pain, shortness of breath, cough, body aches/chills/fever, or any other complaints. Patient does not make urine. Glucose improved to 258 after subcutaneous Humalog and 5 units of IV insulin. Blood pressure controlled after hydralazine and clonidine. Patient to DC home with primary care follow-up. Discussed strict return precautions in detail with patient who states understanding. Critical care attestation.: If time is entered above; I have spent that time in minutes in the direct care of this critically ill patient, excluding procedure time. ED Disposition Clinical Impression: Hyperglycemia due to type 2 diabetes mellitus Qualifiers: Diabetes mellitus jail insulin use: with jail use Qualified Code(s): E11.65 - Type 2 diabetes mellitus with hyperglycemia Disposition: DC-01 TO HOME OR SELFCARE Is pt being admited?: No Condition: Stable Instructions: Diabetic Hyperglycemia (ED) Referrals: PRIMARY CARE, [Referring] - 2-3 Days
[2019-09-03 10:08] LABS: Hematocrit 29.8 % (30.3-42.9); Hemoglobin 9.8 gm/dl (10.1-14.3); Mean Corpuscular HGB Conc 33 % (30-34); Red Blood Count 4.27 M/mm3 (3.65-5.03); Red Cell Distribution Width 18.7 % (13.2-15.2)
[2019-09-03 10:10] LABS: Mean Corpuscular Volume 70 fl (79-97)
[2019-09-03 10:29] LABS: Platelet Count 252 K/mm3 (140-440)
[2019-09-03 10:36] LABS: Albumin 3.7 g/dL (3.9-5); Bilirubin,Direct 1.6 mg/dL (0-0.2)
--- NOTE | 2019-09-03 10:36 | XRay Report ---
CHEST 1 VIEW INDICATION: abnormal breath sounds. COMPARISON: 07/02/2019 FINDINGS: Support devices: None. Heart: Borderline to mild cardiomegaly is stable. Lungs/Pleura: No acute air space or interstitial disease. Minor linear scarring in the lingula is unc hanged. Additional findings: None. IMPRESSION: No acute findings. Borderline cardiomegaly. Signer Name: Tervon Martinez Jr, MD Signed: 09/03/2019 10:32 AM Workstation Name: [id number]
[2019-09-03] MEDS ORDERED: INSULIN REGULAR, HUMAN 100 UNITS/1 ML IV ONE (11:13)
[2019-09-03] MEDS ORDERED: hydrALAZINE 100 MG TAB PO ONE (11:19)
[2019-09-03] MEDS ORDERED: cloNIDine 0.1 MG TAB PO ONE ×2 (15:23→16:04)
[2019-09-03 16:30] VITALS: BP 173/87
== END 2019-09-03 18:00 | disposition home or self-care (01) ==
LOC: ED 09:08
DX: E11.65 Type 2 diabetes mellitus with hyperglycemia (principal); I12.0 Hypertensive chronic kidney disease with stage 5 chronic kidney disease or end stage renal disease; N18.6 End stage renal disease; E11.22 Type 2 diabetes mellitus with diabetic chronic kidney disease; Z99.2 Dependence on renal dialysis; E78.5 Hyperlipidemia, unspecified; F17.200 Nicotine dependence, unspecified, uncomplicated; Z88.5 Allergy status to narcotic agent; Z88.2 Allergy status to sulfonamides; Z88.8 Allergy status to other drugs, medicaments and biological substances; Z79.4 Long term (current) use of insulin; Z79.899 Other long term (current) drug therapy; Z96.651 Presence of right artificial knee joint; Z89.512 Acquired absence of left leg below knee
CPT/HCPCS: 36415; 71045; 80048; 80076; 82010; 82805; 82962; 85027; 96372; 96374; J1815

== ENCOUNTER 2019-09-05 07:51 | Outpatient (CLI) | payer MEDICARE ==
[2019-09-05] MEDS ORDERED: SILVER NITRATE APPLICATOR 1 EA TP ONE (11:15)
== END 2019-09-05 07:52 | disposition home or self-care (01) ==
LOC: WOUND 07:51
PROVIDERS: ATTEND Surgery
DX: E11.621 Type 2 diabetes mellitus with foot ulcer (principal); L97.522 Non-pressure chronic ulcer of other part of left foot with fat layer exposed; L97.523 Non-pressure chronic ulcer of other part of left foot with necrosis of muscle; L97.413 Non-pressure chronic ulcer of right heel and midfoot with necrosis of muscle; I10 Essential (primary) hypertension; Z87.891 Personal history of nicotine dependence; Z99.2 Dependence on renal dialysis
CPT/HCPCS: 11043; 11046; 82962; G0277; 99183

== ENCOUNTER 2019-09-06 07:49 | Outpatient (CLI) | payer MEDICARE | END 2019-09-06 07:50 | disposition home or self-care (01) | LOC: WOUND 07:49 | PROVIDERS: ATTEND Surgery | DX: E11.621 Type 2 diabetes mellitus with foot ulcer (principal); L97.522 Non-pressure chronic ulcer of other part of left foot with fat layer exposed; L97.423 Non-pressure chronic ulcer of left heel and midfoot with necrosis of muscle; L97.413 Non-pressure chronic ulcer of right heel and midfoot with necrosis of muscle; I10 Essential (primary) hypertension; Z87.891 Personal history of nicotine dependence; Z99.2 Dependence on renal dialysis | CPT/HCPCS: 82962; G0277; 99183 ==

== ENCOUNTER 2019-09-10 07:50 | Outpatient (CLI) | payer MEDICARE, OTHER | END 2019-09-10 07:51 | disposition home or self-care (01) | LOC: WOUND 07:50 | PROVIDERS: ATTEND Surgery | DX: E11.621 Type 2 diabetes mellitus with foot ulcer (principal); L97.522 Non-pressure chronic ulcer of other part of left foot with fat layer exposed; L97.423 Non-pressure chronic ulcer of left heel and midfoot with necrosis of muscle; L97.413 Non-pressure chronic ulcer of right heel and midfoot with necrosis of muscle; I10 Essential (primary) hypertension; Z87.891 Personal history of nicotine dependence; Z99.2 Dependence on renal dialysis | CPT/HCPCS: 82962; G0277; 99183 ==

== ENCOUNTER 2019-09-12 23:30 | Inpatient (IN) | payer MEDICARE ==
--- NOTE | 2019-09-13 00:01 | Emergency Department Report ---
ED General Adult HPI - General Stated complaint: NAUSEA/VOMITING Time Seen by Provider: 09/12/19 23:58 - History of Present Illness Initial comments: 54 y.o. female with past medical history of diabetes, end-stage renal disease, left leg amputation presents with complaint of vomiting. Patient states her problems started today. Patient denies any hematemesis. Patient denies any hematochezia. Patient states that last Tuesday. Patient states she's been having more abdominal cramping. Patient states she went to dialysis Tuesday. Patient complains of some intermittent shortness breath but denies any chest pain. Patient denies any fever. Patient recently discharged from ER for vomiting on 09/03. - Related Data Previous Rx's Medication Instructions Recorded Last Taken Type Ascorbic Acid [Vitamin C] 500 mg PO BID #14 tablet 07/13/19 Unknown Rx Epoetin Jacoby 10,000 Unit [Procrit] 5,000 unit IV FRANCOIS PRN vial 07/13/19 Unknown Rx Ferrous Sulfate [Feosol 325 MG tab] 325 mg PO BID #14 tablet 07/13/19 Unknown Rx Folic Acid [Folvite] 1 mg PO QDAY #7 tablet 07/13/19 Unknown Rx Gabapentin 100 mg PO BID #60 capsule 07/13/19 Unknown Rx Insulin Glargine [Lantus VIAL] 15 units SUB-Q QHS 30 Days units 07/13/19 Unknown Rx Lispro Insulin [HumaLOG] See Protocol SUB-Q ACHS 30 Days 07/13/19 Unknown Rx units Metoclopramide [Reglan TAB] 5 mg PO ACHS 30 Days tablet 07/13/19 Unknown Rx Metoprolol [Lopressor TAB] 100 mg PO BID #60 tablet 07/13/19 Unknown Rx NIFEdipine XL [Procardia Xl] 60 mg PO QDAY #30 tablet 07/13/19 Unknown Rx Polyethylene Glycol 3350 [Miralax 17 gm PO QDAY 30 Days powd.pack 07/13/19 Unknown Rx 3350] Torsemide [Demadex] 60 mg PO DAILY 30 Days tablet 07/13/19 Unknown Rx Zolpidem [Ambien] 5 mg PO QHS PRN #15 tablet 07/13/19 Unknown Rx cloNIDine [Catapres] 0.1 mg PO Q12H PRN #60 tablet 07/13/19 Unknown Rx hydrALAZINE [Apresoline TAB] 100 mg PO Q8HR #90 tab 07/13/19 Unknown Rx oxyCODONE [roxiCODONE] 5 mg PO Q4H PRN #20 tablet 07/13/19 Unknown Rx Allergies Allergy/AdvReac Type Severity Reaction Status Date / Time amlodipine Allergy Itching Verified 04/20/19 11:49 losartan Allergy Itching Verified 04/20/19 11:49 sulfamethoxazole Allergy Rash Verified 04/20/19 11:49 [From Bactrim] trimethoprim [From Bactrim] Allergy Rash Verified 04/20/19 11:49 morphine AdvReac Vomiting Verified 04/20/19 11:49 ED Review of Systems ROS: Stated complaint: NAUSEA/VOMITING Other details as noted in HPI Constitutional: denies: chills, fever Eyes: denies: eye pain, eye discharge, vision change ENT: denies: ear pain, throat pain Respiratory: denies: cough, shortness of breath, wheezing Cardiovascular: denies: chest pain, palpitations Endocrine: no symptoms reported Gastrointestinal: nausea, vomiting Genitourinary: denies: urgency, dysuria, discharge Musculoskeletal: denies: back pain, joint swelling, arthralgia Skin: denies: rash, lesions Neurological: denies: headache, weakness, paresthesias Psychiatric: denies: anxiety, depression Hematological/Lymphatic: denies: easy bleeding, easy bruising ED Past Medical Hx - Past Medical History Hx Hypertension: Yes (Had cardiac eval 3-4 years ago for K TX list) Hx Congestive Heart Failure: No Hx Diabetes: Yes Hx Renal Disease: Yes (HD TTS) Hx Asthma: No Hx COPD: No Additional medical history: HLD, pancreatitis - Surgical History Additional Surgical History: Left arm Fistula, ERCP, right knee replacement; left BKA - Social History Smoking Status: Current Every Day Smoker - Medications Home Medications: Home Medications Medication Instructions Recorded Confirmed Last Taken Type Ascorbic Acid [Vitamin C] 500 mg PO BID #14 tablet 07/13/19 Unknown Rx Epoetin Jacoby 10,000 Unit [Procrit] 5,000 unit IV FRANCOIS PRN vial 07/13/19 Unknown Rx Ferrous Sulfate [Feosol 325 MG tab] 325 mg PO BID #14 tablet 07/13/19 Unknown Rx Folic Acid [Folvite] 1 mg PO QDAY #7 tablet 07/13/19 Unknown Rx Gabapentin 100 mg PO BID #60 capsule 07/13/19 Unknown Rx Insulin Glargine [Lantus VIAL] 15 units SUB-Q QHS 30 Days units 07/13/19 Unk nown Rx Lispro Insulin [HumaLOG] See Protocol SUB-Q ACHS 30 Days 07/13/19 Unknown Rx units Metoclopramide [Reglan TAB] 5 mg PO ACHS 30 Days tablet 07/13/19 Unknown Rx Metoprolol [Lopressor TAB] 100 mg PO BID #60 tablet 07/13/19 Unknown Rx NIFEdipine XL [Procardia Xl] 60 mg PO QDAY #30 tablet 07/13/19 Unknown Rx Polyethylene Glycol 3350 [Miralax 17 gm PO QDAY 30 Days powd.pack 07/13/19 Unknown Rx 3350] Torsemide [Demadex] 60 mg PO DAILY 30 Days tablet 07/13/19 Unknown Rx Zolpidem [Ambien] 5 mg PO QHS PRN #15 tablet 07/13/19 Unknown Rx cloNIDine [Catapres] 0.1 mg PO Q12H PRN #60 tablet 07/13/19 Unknown Rx hydrALAZINE [Apresoline TAB] 100 mg PO Q8HR #90 tab 07/13/19 Unknown Rx oxyCODONE [roxiCODONE] 5 mg PO Q4H PRN #20 tablet 07/13/19 Unknown Rx ED Physical Exam - General General appearance: alert, other (uncomfortable; dehydrated) - Head Head exam: Present: atraumatic, normocephalic - Eye Eye exam: Present: normal appearance - ENT ENT exam: Present: mucous membranes dry - Neck Neck exam: Present: normal inspection - Respiratory Respiratory exam: Present: normal lung sounds bilaterally. Absent: respiratory distress - Cardiovascular Cardiovascular Exam: Present: regular rate, normal rhythm. Absent: systolic murmur, diastolic murmur, rubs, gallop - GI/Abdominal GI/Abdominal exam: Present: soft, tenderness (mild diffuse), normal bowel sounds. Absent: guarding, rebound - Extremities Exam Extremities exam: Present: other (LEFT LEG Amputation; Right lower extremity heel ulcer bandaged ) - Back Exam Back exam: Present: normal inspection - Neurological Exam Neurological exam: Present: alert, oriented X3 - Psychiatric Psychiatric exam: Present: normal affect, normal mood - Skin Skin exam: Present: warm, dry, intact, normal color. Absent: rash ED Course Vital Signs 09/13/19 00:11 Temperature 99.2 F ED Medical Decision Making - Lab Data Result diagrams: 09/13/19 00:33 09/13/19 00:33 - EKG Data EKG shows normal: sinus rhythm - EKG Data Interpretation: other (left bundle branch block ) - Medical Decision Making Patient's prior records were reviewed and patient EKG was reviewed from October 2017. At that time patient had no left bundle branch block pattern. On today's EKG left bundle branch block pattern was noted. Patient also had the presence of elevated troponin. With this pain in case cardiology was consulted and stated they would see the patient consultation and obtain a stress test and keep patient nothing by mouth. Patient to be admitted to the hospitalist service for continued management and treatment. Dr. Ramirez routine consult placed. - Differential Diagnosis Cholelithiasis; Ascite; Electrolyte abnormality; Dehdyration Critical care attestation.: If time is entered above; I have spent that time in minutes in the direct care of this critically ill patient, excluding procedure time. ED Disposition Clinical Impression: ESRD (end stage renal disease), NSTEMI (non-ST elevated myocardial infarction), Left bundle branch block Disposition: OP ADMIT IP TO THIS HOSP Is pt being admited?: Yes Condition: Stable Time of Disposition: 05:40
[2019-09-13] MEDS ORDERED: ONDANSETRON 4 MG/2 ML INJ IV ONE ×2 (00:12→01:00)
[2019-09-13 00:46] LABS: Hematocrit 32.4 % (30.3-42.9); Hemoglobin 10.6 gm/dl (10.1-14.3); Mean Corpuscular HGB Conc 33 % (30-34); Platelet Count 375 K/mm3 (140-440); Red Cell Distribution Width 19.3 % (13.2-15.2)
--- NOTE | 2019-09-13 00:46 | XRay Report ---
CHEST 1 VIEW INDICATION / CLINICAL INFORMATION: chest pain. COMPARISON: 09/03/2019 FINDINGS: SUPPORT DEVICES: None. HEART / MEDIASTINUM: Mild cardiomegaly, stable. Prominence of the main pulmonary artery, unchanged fr om prior studies. LUNGS / PLEURA: Borderline interstitial pulmonary edema. No pleural effusion. No pneumothorax. ADDITIONAL FINDINGS: No significant additional findings. IMPRESSION: 1. Mild cardiomegaly with borderline interstitial pulmonary edema. Signer Name: Tonia Antony MD Signed: 09/13/2019 12:41 AM Workstation Name: [id number]
[2019-09-13 01:05] LABS: Mean Corpuscular Volume 69 fl (79-97)
[2019-09-13] MEDS ORDERED: METOCLOPRAMIDE 10 MG/2 ML INJ IV ONE (01:08)
[2019-09-13 01:30] LABS: Albumin 3.3 g/dL (3.9-5); Calcium 10.7 mg/dL (8.4-10.2)
--- NOTE | 2019-09-13 03:04 | Cat Scan Report ---
CT abdomen pelvis wo con INDICATION / CLINICAL INFORMATION: vomiting. TECHNIQUE: Axial CT imaging of abdomen and pelvis was obtained without contrast. Coronal and sagittal reformatte d imaging obtained and reviewed. All CT scans at this location are performed using CT dose reduction for ALARA by means of automated exposure control. COMPARISON: Prior CT abdomen/pelvis, 12/03/2018 FINDINGS: CT abdomen without contrast demonstrates moderate/large amount of ascites throughout the abdomen. Thi s was present on the last CT scan but does appear to be increased slightly. No focal abnormality rela luci to the liver or spleen. Pancreas, kidneys, and adrenal glands all appear grossly unremarkable. Ga llstones are present within the gallbladder. No visible biliary dilatation. There is diffuse atherosc lerotic disease throughout the visualized abdominal vessels and abdominal aorta. No aneurysm. GI trac t appears grossly unremarkable. CT pelvis demonstrates large amount of ascites. No focal mass. The appendix has a normal appearance a nd caliber. There is diffuse anasarca throughout the visualized soft tissues of abdomen and pelvis. Visualized lung bases are grossly clear. No pleural effusion noted. No significant osseous abnormality other than mild degenerative change. Mild degenerative disc diseas e at L4-L5. IMPRESSION: 1. No acute abnormality within the abdomen or pelvis. 2. Moderate/large amount of ascites throughout the abdomen and pelvis slightly increased in amount si nce prior CT of 12/03/2018. 3. Cholelithiasis without suggestion of acute cholecystitis. Signer Name: Tonia Antony MD Signed: 09/13/2019 3:00 AM Workstation Name: [email or web address].
[2019-09-13 03:23] LABS: Basophils % (Manual) 0 % (0.0-1.8); Total Cells Counted 100
[2019-09-13 03:24] LABS: Anisocytosis 1+; Platelet Estimate Consistent w Auto
[2019-09-13] MEDS ORDERED: MAGNESIUM HYDROXIDE (MOM) ORAL LIQD UDC PO PRN (05:02)
--- NOTE | 2019-09-13 05:37 | History and Physical Report ---
History of Present Illness Date of examination: 09/13/19 Date of admission: 09/13/19 Chief complaint: Nausea vomiting Abdominal pain History of present illness: 54-year-old -[place] female with known history of end-stage renal disease on dialysis Tuesdays and Saturdays, history of diabetes mellitus with a chronic right heel ulcer and history of hypertension presenting to the emergency room today complaining of nausea and vomiting with associated abdominal pain. Nausea vomiting etc. started today. Abdominal pain is said to be more in the upper abdomen. She denies any fever but has had some chills, denies any chest pain or shortness of breath. She denies any sick contacts and no recent travel. Upon arriving in the emergency room her work-up included CT of the abdomen reveals cholelithiasis, a troponin was found to be slightly elevated and she also had a left bundle branch block. EKG findings were discussed with the on- call distal a.m. by the ER physician. Recommendation was to make patient n.p.o. and to await further evaluation this a.m. Has denied any chest pain 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, left arm AV fistula placement) Family history: diabetes, hypertension (Sister has hypertension) Medications and Allergies Allergies Allergy/AdvReac Type Severity Reaction Status Date / Time amlodipine Allergy Itching Verified 04/20/19 11:49 losartan Allergy Itching Verified 04/20/19 11:49 sulfamethoxazole Allergy Rash Verified 04/20/19 11:49 [From Bactrim] trimethoprim [From Bactrim] Allergy Rash Verified 04/20/19 11:49 morphine AdvReac Vomiting Verified 04/20/19 11:49 Home Medications Medication Instructions Recorded Confirmed Last Taken Type Ascorbic Acid [Vitamin C] 500 mg PO BID #14 tablet 07/13/19 Unknown Rx Epoetin Jacoby 10,000 Unit [Procrit] 5,000 unit IV FRANCOIS PRN vial 07/13/19 Unknown Rx Ferrous Sulfate [Feosol 325 MG tab] 325 mg PO BID #14 tablet 07/13/19 Unknown Rx Folic Acid [Folvite] 1 mg PO QDAY #7 tablet 07/13/19 Unknown Rx Gabapentin 100 mg PO BID #60 capsule 07/13/19 Unknown Rx Insulin Glargine [Lantus VIAL] 15 units SUB-Q QHS 30 Days units 07/13/19 Unknown Rx Lispro Insulin [HumaLOG] See Protocol SUB-Q ACHS 30 Days 07/13/19 Unknown Rx units Metoclopramide [Reglan TAB] 5 mg PO ACHS 30 Days tablet 07/13/19 Unknown Rx Metoprolol [Lopressor TAB] 100 mg PO BID #60 tablet 07/13/19 Unknown Rx NIFEdipine XL [Procardia Xl] 60 mg PO QDAY #30 tablet 07/13/19 Unknown Rx Polyethylene Glycol 3350 [Miralax 17 gm PO QDAY 30 Days powd.pack 07/13/19 Unknown Rx 3350] Torsemide [Demadex] 60 mg PO DAILY 30 Days tablet 07/13/19 Unknown Rx Zolpidem [Ambien] 5 mg PO QHS PRN #15 tablet 07/13/19 Unknown Rx cloNIDine [Catapres] 0.1 mg PO Q12H PRN #60 tablet 07/13/19 Unknown Rx hydrALAZINE [Apresoline TAB] 100 mg PO Q8HR #90 tab 07/13/19 Unknown Rx oxyCODONE [roxiCODONE] 5 mg PO Q4H PRN #20 tablet 07/13/19 Unknown Rx Active Meds: Active Medications Acetaminophen (Tylenol) 650 mg PO Q4H PRN PRN Reason: Pain MILD(1-3)/Fever >100.5/CASTILLO Magnesium Hydroxide (Milk Of Magnesia) 30 ml PO Q4H PRN PRN Reason: Constipation Ondansetron HCl (Zofran) 4 mg IV Q8H PRN PRN Reason: Nausea And Vomiting Sodium Chloride (Sodium Chloride Flush Syringe 10 Ml) 10 ml IV BID FATMATA Sodium Chloride (Sodium Chloride Flush Syringe 10 Ml) 10 ml IV PRN PRN PRN Reason: LINE FLUSH Review of Systems Constitutional: chills, weakness Gastrointestinal: abdominal pain, nausea, vomiting Integumentary: foot/leg ulcers (Right foot ulcer) Exam - Constitutional Vitals: Temp Pulse Resp BP Pulse Ox 99.2 F 09/13/19 00:11 General appearance: Present: no acute distress, well-nourished - EENT Eyes: Present: PERRL, EOM intact ENT: hearing intact, clear oral mucosa, dentition normal - Neck Neck: Present: supple, normal ROM - Respiratory Respiratory effort: normal Respiratory: bilateral: CTA - Cardiovascular Rhythm: regular Heart Sounds: Present: S1 & S2 - Extremities Extremities: no ischemia, pulses intact (AV fistula in the left arm with palpable thrill), Full ROM Extremity abnormal: edema (Right lower extremity 1+ edema), ulceration (Dressing over right foot ulcer), other (Left BKA.) - Abdominal General gastrointestinal: Present: soft, tender (Mild epigastric and right upper quadrant tenderness), non-distended, normal bowel sounds - Integumentary Integumentary: Present: clear, warm, dry - Musculoskeletal Musculoskeletal: strength equal bilaterally - Psychiatric Psychiatric: appropriate mood/affect, intact judgment & insight - Neurologic Neurologic: CNII-XII intact, moves all extremities Results - Labs CBC & Chem 7: 09/13/19 00:33 09/13/19 00:33 Labs: Abnormal lab results 09/13/19 09/13/19 09/13/19 Range/Units 00:33 00:33 02:01 WBC 18.6 H (4.5-11.0) K/mm3 MCV 69 L (79-97) fl MCH 23 L (28-32) pg RDW 19.3 H (13.2-15.2) % Seg Neuts % (Manual) 81.0 H (40.0-70.0) % Lymphocytes % (Manual) 12.0 L (13.4-35.0) % Seg Neutrophils # Man 15.1 H (1.8-7.7) K/mm3 Monocytes # (Manual) 0.9 H (0.0-0.8) K/mm3 Chloride 90.0 L (98-107) mmol/L BUN 35 H (7-17) mg/dL Creatinine 5.5 H (0.7-1.2) mg/dL Glucose 239 H (65-100) mg/dL Calcium 10.7 H (8.4-10.2) mg/dL Total Bilirubin 1.60 H (0.1-1.2) mg/dL Alkaline Phosphatase 713 H (35-129) units/L Troponin T 0.204 H* (0.00-0.029) ng/mL Total Protein 9.1 H (6.3-8.2) g/dL Albumin 3.3 L (3.9-5) g/dL Assessment and Plan - Patient Problems (1) Nausea & vomiting Current Visit: No Status: Acute Plan to address problem: Probably secondary to cholelithiasis. We will place patient on IV Zofran as needed. (2) Left bundle branch block (LBBB) Current Visit: Yes Status: Acute Plan to address problem: Patient denies any chest pain at this time. EKG findings and elevated troponin discussed with the on-call cafeteria monitor by the ER physician. Patient is to be kept n.p.o. for further evaluation by cafeteria monitor in the a.m. (3) Elevated troponin Current Visit: Yes Status: Acute Plan to address problem: Patient denies any chest pain however will monitor serial troponin levels. Will await cardiology evaluation and recommendation. (4) Abdominal pain Current Visit: No Status: Acute Plan to address problem: Possibly secondary to cholelithiasis and stroma CT abdomen. Will place on analgesic medication as needed. (5) Diabetic ulcer of heel Current Visit: No Status: Acute Qualifiers: Diabetes mellitus type: type 1 Laterality: left Non-pressure ulcer stage: unspecified non-pressure ulcer stage Qualified Code(s): E10.621 - Type 1 diabetes mellitus with foot ulcer; L97.429 - Non-pressure chronic ulcer of left heel and midfoot with unspecified severity Plan to address problem: We will place a consult to wound care team for evaluation and management (6) Diabetes Current Visit: No Status: Chronic Qualifiers: Diabetes mellitus type: type 2 Diabetes mellitus intermediate project manager insulin use: with intermediate project manager use Diabetes mellitus complication status: with skin complications Diabetes mellitus complication detail: with foot ulcer Qualified Code(s): E11.621 - Type 2 diabetes mellitus with foot ulcer; L97.509 - Non-pressure chronic ulcer of other part of unspecified foot with unspecified severity; 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 (7) End-stage renal disease on hemodialysis Current Visit: No Status: Chronic Plan to address problem: Patient is on dialysis Tuesday, and Saturdays. Will consult nephrology for dialysis during this admission (8) HTN (hypertension) Current Visit: No Status: Chronic Qualifiers: Hypertension type: essential hypertension Qualified Code(s): I10 - Essential (primary) hypertension Plan to address problem: Blood pressure stable. Will continue routine home medications and monitor vital signs closely. (9) DVT prophylaxis Current Visit: No Status: Acute Plan to address problem: Patient placed on subcu to heparin (10) Full code status Current Visit: Yes Status: Acute
[2019-09-13 06:10] LABS: Chol/HDL Ratio 6.82 %
[2019-09-13] MEDS ORDERED: DEXTROSE 50% IN WATER (25GM) 50 ML SYRINGE IV PRN (06:10)
[2019-09-13] MEDS ORDERED: PIPERACILLIN/TAZOBACTAM 3.375 3.375 GM/50 ML BAG IV SCH (07:00)
[2019-09-13] MEDS ORDERED: ONDANSETRON 4 MG/2 ML INJ ONE (07:27)
[2019-09-13] MEDS ORDERED: INSULIN REGULAR, HUMAN 100 UNITS/1 ML ONE (07:28)
[2019-09-13] MEDS: INSULIN REGULAR, HUMAN 100 UNITS/1 ML SUB-Q SCH ×4 (07:32→22:00)
[2019-09-13] MEDS: ONDANSETRON 4 MG/2 ML INJ IV PRN ×4 (07:32→21:56)
[2019-09-13] MEDS ORDERED: REGADENOSON 0.4 MG/5 ML INJ IV ONE ×2 (09:37)
[2019-09-13] MEDS ORDERED: LORazepam 2 MG/ML VIAL ONE (10:20)
--- NOTE | 2019-09-13 10:21 | Consultation ---
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, left arm AV fistula placement) Family history: diabetes, hypertension (Sister has hypertension) Medications and Allergies Allergies Allergy/AdvReac Type Severity Reaction Status Date / Time amlodipine Allergy Itching Verified 04/20/19 11:49 losartan Allergy Itching Verified 04/20/19 11:49 sulfamethoxazole Allergy Rash Verified 04/20/19 11:49 [From Bactrim] trimethoprim [From Bactrim] Allergy Rash Verified 04/20/19 11:49 morphine AdvReac Vomiting Verified 04/20/19 11:49 Home Medications Medication Instructions Recorded Confirmed Last Taken Type Ascorbic Acid [Vitamin C] 500 mg PO BID #14 tablet 07/13/19 09/13/19 Unknown Rx Epoetin Jacoby 10,000 Unit [Procrit] 5,000 unit IV FRANCOIS PRN vial 07/13/19 09/13/19 Unknown Rx Ferrous Sulfate [Feosol 325 MG tab] 325 mg PO BID #14 tablet 07/13/19 09/13/19 Unknown Rx Folic Acid [Folvite] 1 mg PO QDAY #7 tablet 07/13/19 09/13/19 Unknown Rx Gabapentin 100 mg PO BID #60 capsule 07/13/19 09/13/19 Unknown Rx Insulin Glargine [Lantus VIAL] 15 units SUB-Q QHS 30 Days units 07/13/19 09/13/19 Unknown Rx Lispro Insulin [HumaLOG] See Protocol SUB-Q ACHS 30 Days 07/13/19 09/13/19 Unknown Rx units Metoclopramide [Reglan TAB] 5 mg PO ACHS 30 Days tablet 07/13/19 09/13/19 Unknown Rx Metoprolol [Lopressor TAB] 100 mg PO BID #60 tablet 07/13/19 09/13/19 Unknown Rx NIFEdipine XL [Procardia Xl] 60 mg PO QDAY #30 tablet 07/13/19 09/13/19 Unknown Rx Polyethylene Glycol 3350 [Miralax 17 gm PO QDAY 30 Days powd.pack 07/13/19 09/13/19 Unknown Rx 3350] Torsemide [Demadex] 60 mg PO DAILY 30 Days tablet 07/13/19 09/13/19 Unknown Rx Zolpidem [Ambien] 5 mg PO QHS PRN #15 tablet 07/13/19 09/13/19 Unknown Rx cloNIDine [Catapres] 0.1 mg PO Q12H PRN #60 tablet 07/13/19 09/13/19 Unknown Rx hydrALAZINE [Apresoline TAB] 100 mg PO Q8HR #90 tab 07/13/19 09/13/19 Unknown Rx oxyCODONE [roxiCODONE] 5 mg PO Q4H PRN #20 tablet 07/13/19 09/13/19 Unknown Rx Active Meds: Active Medications Acetaminophen (Tylenol) 650 mg PO Q4H PRN PRN Reason: Pain MILD(1-3)/Fever >100.5/CASTILLO Dextrose (D50w (25gm) Syringe) 50 ml IV Q30MIN PRN; Protocol PRN Reason: Hypoglycemia Piperacillin Sod/Tazobactam Sod (Zosyn/Ns 2.25 Gm/50ml) 2.25 gm in 50 mls @ 100 mls/hr IV Q6HR FATMATA; Protocol Insulin Human Regular (Humulin R) 0 units SUB-Q ACHS FATMATA; Protocol Last Admin: 09/13/19 07:32 Dose: 6 units Documented by: Magnesium Hydroxide (Milk Of Magnesia) 30 ml PO Q4H PRN PRN Reason: Constipation Ondansetron HCl (Zofran) 4 mg IV Q8H PRN PRN Reason: Nausea And Vomiting Last Admin: 09/13/19 07:32 Dose: 4 mg Documented by: Sodium Chloride (Sodium Chloride Flush Syringe 10 Ml) 10 ml IV BID FATMATA Sodium Chloride (Sodium Chloride Flush Syringe 10 Ml) 10 ml IV PRN PRN PRN Reason: LINE FLUSH Physical Examination Vital Signs Pulse Resp Pulse Ox 88 16 100 09/12/19 23:46 09/12/19 23:46 09/12/19 23:46 Results 09/13/19 00:33 09/13/19 00:33 Cardiac Enzymes 09/13/19 Range/Units 00:33 AST 17 (5-40) units/L Lipids 09/13/19 Range/Units 02:01 Triglycerides 227 H (2-149) mg/dL Cholesterol 191 (50-199) mg/dL HDL Cholesterol 28 L (40-59) mg/dL Cholesterol/HDL Ratio 6.82 % CBC 09/13/19 Range/Units 00:33 WBC 18.6 H (4.5-11.0) K/mm3 RBC 4.70 (3.65-5.03) M/mm3 Hgb 10.6 (10.1-14.3) gm/dl Hct 32.4 (30.3-42.9) % Plt Count 375 (140-440) K/mm3 Lymph # Windmill Technician Comprehensive Metabolic Panel 09/13/19 Range/Units 00:33 Sodium 137 (137-145) mmol/L Potassium 4.0 (3.6-5.0) mmol/L Chloride 90.0 L (98-107) mmol/L Carbon Dioxide 25 (22-30) mmol/L BUN 35 H (7-17) mg/dL Creatinine 5.5 H (0.7-1.2) mg/dL Glucose 239 H (65-100) mg/dL Calcium 10.7 H (8.4-10.2) mg/dL AST 17 (5-40) units/L ALT 11 (7-56) units/L Alkaline Phosphatase 713 H (35-129) units/L Total Protein 9.1 H (6.3-8.2) g/dL Albumin 3.3 L (3.9-5) g/dL Assessment and Plan full consult dictated
[2019-09-13] MEDS ORDERED: LORazepam 2 MG/ML VIAL IV ONE (10:30)
--- NOTE | 2019-09-13 12:36 | Progress Note ---
Assessment and Plan (1) Nausea & vomiting Current Visit: No Status: Acute Plan to address problem: Probably secondary to cholelithiasis vs gastroparesis. We will place patient on IV Zofran as needed. will also add PPI and reglan (2) Left bundle branch block (LBBB) Current Visit: Yes Status: Acute Plan to address problem: Patient denies any chest pain at this time. EKG findings and elevated troponin discussed with the on-call planer operator / grader by the ER physician. Patient is to be kept n.p.o. for further evaluation by planer operator / grader in the a.m. (3) Elevated troponin Current Visit: Yes Status: Acute Plan to address problem: Patient denies any chest pain however will monitor serial troponin levels. Will await cardiology evaluation and recommendation. (4) Abdominal pain Current Visit: No Status: Acute Plan to address problem: Possibly secondary to cholelithiasis on CT abdomen w/o cholecystitis. Will place on analgesic medication as needed. (5) Diabetic ulcer of heel Current Visit: No Status: Acute Qualifiers: Diabetes mellitus type: type 1 Laterality: left Non-pressure ulcer stage: unspecified non-pressure ulcer stage Qualified Code(s): E10.621 - Type 1 diabetes mellitus with foot ulcer; L97.429 - Non-pressure chronic ulcer of left heel and midfoot with unspecified severity Plan to address problem: We will place a consult to wound care team for evaluation and management (6) Diabetes Current Visit: No Status: Chronic Qualifiers: Diabetes mellitus type: type 2 Diabetes mellitus group home insulin use: with terminal press operator use Diabetes mellitus complication status: with skin complications Diabetes mellitus complication detail: with foot ulcer Qualified Code(s): E11.621 - Type 2 diabetes mellitus with foot ulcer; L97.509 - Non-pressure chronic ulcer of other part of unspecified foot with unspecified severity; Z79.4 - intermediate (current) use of insulin Plan to address problem: We will monitor Accu-Cheks continue routine home medications. (7) End-stage renal disease on hemodialysis Current Visit: No Status: Chronic Plan to address problem: Patient is on dialysis Tuesday, and Saturdays. Will consult nephrology for dialysis during this admission (8) HTN (hypertension) Current Visit: No Status: Chronic Qualifiers: Hypertension type: essential hypertension Qualified Code(s): I10 - Es sential (primary) hypertension Plan to address problem: Blood pressure stable. Will continue routine home medications and monitor vital signs closely. (9) DVT prophylaxis Current Visit: No Status: Acute Plan to address problem: Patient placed on subcu to heparin (10)Ascitis Current Visit: Yes Status: Acute order paracentesis Subjective Date of service: 09/13/19 Objective - Constitutional Vitals: Vital Signs - 12hr 09/13/19 09/13/19 09/13/19 01:00 01:30 02:00 Temperature Pulse Rate 101 H 87 90 Respiratory 24 24 22 Rate Blood Pressure 197/93 197/87 187/82 O2 Sat by Pulse 97 96 90 Oximetry 09/13/19 09/13/19 09/13/19 02:31 03:00 04:30 Temperature Pulse Rate 88 Respiratory 28 H Rate Blood Pressure 156/66 156/66 184/83 O2 Sat by Pulse 89 97 94 Oximetry 09/13/19 09/13/19 09/13/19 05:00 06:00 06:11 Temperature Pulse Rate Respiratory Rate Blood Pressure 166/71 184/83 184/83 O2 Sat by Pulse 89 93 96 Oximetry 09/13/19 09/13/19 09/13/19 06:20 06:30 06:41 Temperature Pulse Rate Respiratory Rate Blood Pressure 184/83 168/77 168/77 O2 Sat by Pulse 99 89 98 Oximetry 09/13/19 09/13/19 09/13/19 06:51 07:00 07:11 Temperature Pulse Rate Respiratory Rate Blood Pressure 168/77 186/78 186/78 O2 Sat by Pulse 97 93 100 Oximetry 09/13/19 09/13/19 09/13/19 07:21 07:30 07:41 Temperature Pulse Rate Respiratory Rate Blood Pressure 186/78 194/83 194/83 O2 Sat by Pulse 100 97 98 Oximetry 09/13/19 09/13/19 09/13/19 07:50 08:50 08:51 Temperature 98.5 F 98.6 F Pulse Rate 57 L Respiratory 18 18 Rate Blood Pressure 194/83 178/87 185/87 O2 Sat by Pulse 99 96 100 Oximetry 09/13/19 09/13/19 09/13/19 08:54 09:52 09:57 Temperature 98.5 F Pulse Rate 86 Respiratory 18 Rate Blood Pressure 188/75 187/83 O2 Sat by Pulse 97 Oximetry 09/13/19 09/13/19 09/13/19 10:08 10:09 10:10 Temperature Pulse Rate Respiratory Rate Blood Pressure 164/77 171/75 164/75 O2 Sat by Pulse Oximetry 09/13/19 10:11 Temperature Pulse Rate Respiratory Rate Blood Pressure 166/79 O2 Sat by Pulse Oximetry - Labs CBC & Chem 7: 09/13/19 00:33 09/13/19 00:33 Labs: Abnormal lab results 09/13/19 09/13/19 09/13/19 Range/Units 00:33 00:33 02:01 WBC 18.6 H (4.5-11.0) K/mm3 MCV 69 L (79-97) fl MCH 23 L (28-32) pg RDW 19.3 H (13.2-15.2) % Seg Neuts % (Manual) 81.0 H (40.0-70.0) % Lymphocytes % (Manual) 12.0 L (13.4-35.0) % Seg Neutrophils # Man 15.1 H (1.8-7.7) K/mm3 Monocytes # (Manual) 0.9 H (0.0-0.8) K/mm3 Chloride 90.0 L (98-107) mmol/L BUN 35 H (7-17) mg/dL Creatinine 5.5 H (0.7-1.2) mg/dL Glucose 239 H (65-100) mg/dL POC Glucose (70-105) Calcium 10.7 H (8.4-10.2) mg/dL Total Bilirubin 1.60 H (0.1-1.2) mg/dL Alkaline Phosphatase 713 H (35-129) units/L Troponin T 0.204 H* (0.00-0.029) ng/mL Total Protein 9.1 H (6.3-8.2) g/dL Albumin 3.3 L (3.9-5) g/dL Triglycerides 227 H (2-149) mg/dL HDL Cholesterol 28 L (40-59) mg/dL 09/13/19 09/13/19 Range/Units 05:51 07:30 WBC (4.5-11.0) K/mm3 MCV (79-97) fl MCH (28-32) pg RDW (13.2-15.2) % Seg Neuts % (Manual) (40.0-70.0) % Lymphocytes % (Manual) (13.4-35.0) % Seg Neutrophils # Man (1.8-7.7) K/mm3 Monocytes # (Manual) (0.0-0.8) K/mm3 Chloride (98-107) mmol/L BUN (7-17) mg/dL Creatinine (0.7-1.2) mg/dL Glucose (65-100) mg/dL POC Glucose 312 H (70-105) Calcium (8.4-10.2) mg/dL Total Bilirubin (0.1-1.2) mg/dL Alkaline Phosphatase (35-129) units/L Troponin T 0.193 H* (0.00-0.029) ng/mL Total Protein (6.3-8.2) g/dL Albumin (3.9-5) g/dL Triglycerides (2-149) mg/dL HDL Cholesterol (40-59) mg/dL
--- NOTE | 2019-09-13 13:05 | Consultation ---
REFERRED BY: Hospitalist Service. REASON FOR CONSULTATION: Advice and opinion regarding elevated troponin. HISTORY OF PRESENT ILLNESS: The patient is a 54-year-old -[place] female with known history of end-stage renal disease, diabetes, chronic right heel ulcer, recent left BKA and hypertension presents to the Emergency Room with abdominal pain, nausea and vomiting. CT of abdomen and pelvis is unremarkable. She is seen in the stress lab. She is referred for abnormal troponin. She denies any chest pain or shortness of breath, syncope or presyncope. No palpitations. Complains of fatigue. No diaphoresis, dizziness, headache. Abdominal pain is resolved. No hematochezia, melena or hemoptysis. No blurred vision. REVIEW OF SYSTEMS: As per HPI. MEDICATIONS: Inpatient and outpatient medications are reviewed. ALLERGIES: AMLODIPINE, LOSARTAN, SULFA, BACTRIM AND MORPHINE. PAST SURGICAL HISTORY: Left BKA in May 2019. Left arm AV fistula placement. FAMILY HISTORY: Diabetes and hypertension. SOCIAL HISTORY: Former smoker. PHYSICAL EXAMINATION: VITAL SIGNS: Blood pressure is 170/80. She is afebrile. Tele reveals sinus rhythm in the 70s and 80s. O2 sat is 97% on room air. GENERAL: This is a middle-aged -[place] female, who appears older than stated age. No apparent distress. HEENT: Sclerae are anicteric. NECK: Supple, no masses, no JVD. CHEST: Clear to auscultation bilaterally. Good air movement. CARDIOVASCULAR: Regular rhythm, S1, S2. ABDOMEN: Soft, nontender, nondistended. Normoactive bowel sounds in 4 quadrants. No mass or bruits. EXTREMITIES: No cyanosis, clubbing or edema. Left AKA present. SKIN: Warm, dry and intact. No rashes. LABORATORY DATA: Troponin is mildly elevated at 0.2, creatinine is 5.5, potassium is 4.0. Hemoglobin is 10.6, hematocrit 32.4, WBC is 18.6, platelets 375. EKG shows left bundle branch block. This is new from previous visit. ASSESSMENT: In summary, the patient is a pleasant 54-year-old -[place] female, who presents to the hospital with abdominal pain with incidental finding of elevated troponin and left bundle-branch block. She is clinically stable, chest pain free. We will check stress test, echocardiogram. We will follow along with you. JOB# [id number] SBM/NTS
[2019-09-13] MEDS ORDERED: SODIUM CHLORIDE 0.9% 100 ML IV PRN (13:06)
[2019-09-13] MEDS ORDERED: ALTEPLASE 2 MG INJ IV PRN (13:06)
[2019-09-13] MEDS ORDERED: ALBUMIN HUMAN 25% (25 GM/100 ML) INJ IV PRN (13:06)
--- NOTE | 2019-09-13 13:50 | Consultation ---
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 Nephrology consult at this time for chronic hemodialysis needs. She is dialyzing on a Tuesday outpatient schedule. She dialyzes at her outpatient unit at [facility]. Her last hemodialysis session was Tuesday. Troponin showed mild elevation and cardiology evaluation is noted. Echocardiogram was done without any acute abnormalities noted. 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, left arm AV fistula placement) Family history: diabetes, hypertension (Sister has hypertension) Medications and Allergies Allergies Allergy/AdvReac Type Severity Reaction Status Date / Time amlodipine Allergy Itching Verified 04/20/19 11:49 losartan Allergy Itching Verified 04/20/19 11:49 sulfamethoxazole Allergy Rash Verified 04/20/19 11:49 [From Bactrim] trimethoprim [From Bactrim] Allergy Rash Verified 04/20/19 11:49 morphine AdvReac Vomiting Verified 04/20/19 11:49 Home Medications Medication Instructions Recorded Confirmed Last Taken Type Ascorbic Acid [Vitamin C] 500 mg PO BID #14 tablet 07/13/19 09/13/19 Unknown Rx Epoetin Jacoby 10,000 Unit [Procrit] 5,000 unit IV FRANCOIS PRN vial 07/13/19 09/13/19 Unknown Rx Ferrous Sulfate [Feosol 325 MG tab] 325 mg PO BID #14 tablet 07/13/19 09/13/19 Unknown Rx Folic Acid [Folvite] 1 mg PO QDAY #7 tablet 07/13/19 09/13/19 Unknown Rx Gabapentin 100 mg PO BID #60 capsule 07/13/19 09/13/19 Unknown Rx Insulin Glargine [Lantus VIAL] 15 units SUB-Q QHS 30 Days units 07/13/19 09/13/19 Unknown Rx Lispro Insulin [HumaLOG] See Protocol SUB-Q ACHS 30 Days 07/13/19 09/13/19 Unknown Rx units Metoclopramide [Reglan TAB] 5 mg PO ACHS 30 Days tablet 07/13/19 09/13/19 Unknown Rx Metoprolol [Lopressor TAB] 100 mg PO BID #60 tablet 07/13/19 09/13/19 Unknown Rx NIFEdipine XL [Procardia Xl] 60 mg PO QDAY #30 tablet 07/13/19 09/13/19 Unknown Rx Polyethylene Glycol 3350 [Miralax 17 gm PO QDAY 30 Days powd.pack 07/13/19 09/13/19 Unknown Rx 3350] Torsemide [Demadex] 60 mg PO DAILY 30 Days tablet 07/13/19 09/13/19 Unknown Rx Zolpidem [Ambien] 5 mg PO QHS PRN #15 tablet 07/13/19 09/13/19 Unknown Rx cloNIDine [Catapres] 0.1 mg PO Q12H PRN #60 tablet 07/13/19 09/13/19 Unknown Rx hydrALAZINE [Apresoline TAB] 100 mg PO Q8HR #90 tab 07/13/19 09/13/19 Unknown Rx oxyCODONE [roxiCODONE] 5 mg PO Q4H PRN #20 tablet 07/13/19 09/13/19 Unknown Rx Active Meds: Active Medications Acetaminophen (Tylenol) 650 mg PO Q4H PRN PRN Reason: Pain MILD(1-3)/Fever >100.5/CASTILLO Albumin Human (Alburx 25% (Albumin)) 25 gm IV FRANCOIS PRN PRN Reason: Hypotension Alteplase, Recombinant (Cathflo) 2 mg IV FRANCOIS PRN PRN Reason: LINE FLUSH Dextrose (D50w (25gm) Syringe) 50 ml IV Q30MIN PRN; Protocol PRN Reason: Hypoglycemia Epoetin Jacoby (Procrit) 10,000 unit SUB-Q FRANCOIS PRN PRN Reason: hemodialysis Piperacillin Sod/Tazobactam Sod (Zosyn/Ns 2.25 Gm/50ml) 2.25 gm in 50 mls @ 100 mls/hr IV Q6HR FATMATA; Protocol Sodium Chloride (Nacl 0.9%) 100 mls @ 999 mls/hr IV FRANCOIS PRN PRN Reason: Hypotension Insulin Human Regular (Humulin R) 0 units SUB-Q ACHS FATMATA; Protocol Last Admin: 09/13/19 07:32 Dose: 6 units Documented by: Magnesium Hydroxide (Milk Of Magnesia) 30 ml PO Q4H PRN PRN Reason: Constipation Ondansetron HCl (Zofran) 4 mg IV Q8H PRN PRN Reason: Nausea And Vomiting Last Admin: 09/13/19 13:42 Dose: 4 mg Documented by: Sodium Chloride (Sodium Chloride Flush Syringe 10 Ml) 10 ml IV BID FATMATA Sodium Chloride (Sodium Chloride Flush Syringe 10 Ml) 10 ml IV PRN PRN PRN Reason: LINE FLUSH Review of Systems All systems: negative Constitutional: fatigue, weakness, poor appetite Gastrointestinal: abdominal pain, nausea, vomiting Exam - Vital Signs Vital signs: Vital Signs Pulse Resp Pulse Ox 88 16 100 09/12/19 23:46 09/12/19 23:46 09/12/19 23:46 - General Appearance General appearance: well-developed, well-nourished, appears stated age EENT: ATNC, PERRL Neck: Present: neck supple, trachea midline Respiratory: Clear to Ascultation, Normal Exam Heart: regular, S1S2 Gastrointestinal: Present: normal, normoactive bowel sounds Integumentary: warm and dry Neurologic: no focal deficit Musculoskeletal: Present: other (left BKA) Psychiatric: cooperative Results - Lab Results 09/13/19 00:33 09/13/19 00:33 Most recent lab results Calcium 10.7 mg/dL (8.4-10.2) H 09/13/19 00:33 Assessment and Plan - Patient Problems (1) ESRD (end stage renal disease) Current Visit: Yes Status: Chronic Plan to address problem: Maintained on inpatient TTS hemodialysis schedule. (2) Elevated troponin Current Visit: Yes Status: Acute Plan to address problem: Evaluation noted by cardiology. Normal echocardiogram. We'll defer further management per cardiology recommendations. (3) Abdominal pain Current Visit: No Status: Acute Plan to address problem: CT abdomen noted with evidence of cholelithiasis. She continues to have discomfort and pain. Will monitor closely. Recommendations and management per primary attending. 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 (5) Type 2 diabetes mellitus with diabetic chronic kidney disease Current Visit: No Status: Chronic Qualifiers: Chronic kidney disease stage: on chronic dialysis Plan to address problem: Diabetes management per primary attending (6) Anemia in chronic kidney disease Current Visit: No Status: Acute Plan to address problem: XI therapy on hemodialysis to maintain hemoglobin 1011.5.
[2019-09-13] MEDS ORDERED: traMADol 50 MG TAB PO PRN (13:51)
--- NOTE | 2019-09-13 14:38 | Procedure Note ---
Date of procedure: 09/13/19 Pre-op diagnosis: Chronic non-pressure wound of right heel with exposed necrotic muscle Post-op diagnosis: same Procedure: Debridement of necrotic SQ, muscle and fascia from right foot and heel Description of procedure: Pt was placed left side down on her bed. The right foot and heel were prepped and draped. A surgical/excisional debridement of necrotic SQ tissue, muscle and fascia was performed with forceps and scalpel. Bleeding was minimal and was controlled with pressure. Pt tolerated the procedure well. Her wound was dressed by her nurse. Final wound measurements: 6 X 6 X 1.5 cm I again discussed the need for BKA with the pt and her . The pt does not seem ready to have this done. Anesthesia: other Surgeon: JOCELINE FLAHERTY Estimated blood loss: minimal Pathology: none Specimen disposition: discarded Condition: stable Disposition: no change
[2019-09-13] MEDS: PIPERACIL-TAZO 2.25 GM/50 ML 2.25 GM/50 ML BAG IV SCH ×2 (15:02→21:57)
--- NOTE | 2019-09-13 15:05 | Event Note ---
Date: 09/13/19 Patient seen and examined 54-year-old -German female with known history of end-stage renal disease on dialysis Tuesdays and Saturdays, history of diabetes mellitus with a chronic right heel ulcer and history of hypertension presenting to the emergency room complaining of nausea and vomiting with associated abdominal pain. had stress test today, debridement at bedside. will place on PPI, clear liquid diet, as needed reglan. cont current Mx, follow 2d echo, monitor clinically
[2019-09-13 16:01] LABS: INR 1.16 (0.87-1.13)
[2019-09-13 16:02] LABS: Partial Thromboplastin Time 41.8 Sec. (24.2-36.6)
[2019-09-13] MEDS ORDERED: SODIUM CHLORIDE*PRIMING MACHINE ONLY FOR DIALYSIS MC ONE (16:55)
[2019-09-13] MEDS: EPOETIN ALFA 10,000 UNIT/1 ML INJ SUB-Q PRN (17:00)
[2019-09-13] MEDS: HEPARIN 5,000 UNIT/1 ML VIAL SUB-Q SCH (21:56)
[2019-09-14 04:04] LABS: Hematocrit 31.2 % (30.3-42.9); Mean Corpuscular HGB Conc 32 % (30-34); Platelet Count 382 K/mm3 (140-440); Red Blood Count 4.51 M/mm3 (3.65-5.03); Red Cell Distribution Width 19.5 % (13.2-15.2)
[2019-09-14 04:15] LABS: INR 1.22 (0.87-1.13)
[2019-09-14 04:16] LABS: Partial Thromboplastin Time 42.9 Sec. (24.2-36.6)
[2019-09-14 04:42] LABS: Mean Corpuscular Volume 69 fl (79-97)
[2019-09-14 05:49] LABS: Basophils % (Manual) 0 % (0.0-1.8); Total Cells Counted 100
[2019-09-14 05:50] LABS: Anisocytosis 1+; Hypochromasia 1+; Platelet Estimate Consistent w Auto
[2019-09-14] MEDS: PIPERACIL-TAZO 2.25 GM/50 ML 2.25 GM/50 ML BAG IV SCH ×4 (06:40→21:09)
[2019-09-14] MEDS: ONDANSETRON 4 MG/2 ML INJ IV PRN (06:43)
[2019-09-14] MEDS: INSULIN REGULAR, HUMAN 100 UNITS/1 ML SUB-Q SCH ×5 (08:00→21:58)
--- NOTE | 2019-09-14 08:30 | Progress Note ---
Assessment and Plan - Patient Problems (1) ESRD (end stage renal disease) Current Visit: Yes Status: Chronic Plan to address problem: Maintained on inpatient TTS hemodialysis schedule. (2) Elevated troponin Current Visit: Yes Status: Acute Plan to address problem: Evaluation noted by cardiology. Normal echocardiogram. We'll defer further management per cardiology recommendations. (3) Abdominal pain Current Visit: No Status: Acute Plan to address problem: CT abdomen noted with evidence of cholelithiasis. She continues to have discomfort and pain. Will monitor closely. Recommendations and management per primary attending. Symptomatic treatment of nausea per primary attending. 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 (5) Type 2 diabetes mellitus with diabetic chronic kidney disease Current Visit: No Status: Chronic Qualifiers: Chronic kidney disease stage: on chronic dialysis Plan to address problem: Diabetes management per primary attending (6) Anemia in chronic kidney disease Current Visit: No Status: Acute Qualifiers: Chronic kidney disease stage: on chronic dialysis Qualified Code(s): N18.6 - End stage renal disease; D63.1 - Anemia in chronic kidney disease; Z99.2 - Dependence on renal dialysis Plan to address problem: XI therapy on hemodialysis to maintain hemoglobin 1011.5. Subjective Date of service: 09/14/19 Interval history: Still remains nauseous overnight. Tolerated hemodialysis. Objective - Vital Signs Vital signs: Vital Signs - 12hr 09/13/19 09/13/19 09/13/19 20:32 20:34 22:00 Temperature 98.6 F Pulse Rate 91 H 86 Respiratory 20 Rate Blood Pressure 187/82 O2 Sat by Pulse 97 Oximetry 09/13/19 09/14/19 23:30 03:20 Temperature 98.6 F 98.7 F Pulse Rate 89 84 Respiratory 16 16 Rate Blood Pressure 144/58 158/75 O2 Sat by Pulse 95 99 Oximetry - General Appearance General appearance: well-nourished, appears stated age EENT: ATNC, PERRL Neck: no JVD, no thyromegaly Respiratory: Present: Clear to Ascultation, Normal Exam Cardiology: regular, S1S2 Gastrointestinal: normal, normoactive bowel sounds Integumentary: warm and dry Neurologic: no focal deficit, alert and oriented x3 Musculoskeletal: other (left BKA) Psychiatric: cooperative - Lab 09/14/19 02:47 09/14/19 02:47 Most recent lab results Calcium 10.0 mg/dL (8.4-10.2) 09/14/19 02:47 - Allied health notes Allied health notes reviewed: nursing Medications & Allergies - Medications Allergies/Adverse Reactions: Allergies amlodipine Allergy (Verified 04/20/19 11:49) Itching losartan Allergy (Verified 04/20/19 11:49) Itching sulfamethoxazole [From Bactrim] Allergy (Verified 04/20/19 11:49) Rash trimethoprim [From Bactrim] Allergy (Verified 04/20/19 11:49) Rash morphine Adverse Reaction (Verified 04/20/19 11:49) Vomiting Home Medications: Home Medications Medication Instructions Recorded Confirmed Last Taken Type Ascorbic Acid [Vitamin C] 500 mg PO BID #14 tablet 07/13/19 09/13/19 Unknown Rx Epoetin Jacoby 10,000 Unit [Procrit] 5,000 unit IV FRANCOIS PRN vial 07/13/19 09/13/19 Unknown Rx Ferrous Sulfate [Feosol 325 MG tab] 325 mg PO BID #14 tablet 07/13/19 09/13/19 Unknown Rx Folic Acid [Folvite] 1 mg PO QDAY #7 tablet 07/13/19 09/13/19 Unknown Rx Gabapentin 100 mg PO BID #60 capsule 07/13/19 09/13/19 Unknown Rx Insulin Glargine [Lantus VIAL] 15 units SUB-Q QHS 30 Days units 07/13/19 09/13/19 Unknown Rx Lispro Insulin [HumaLOG] See Protocol SUB-Q ACHS 30 Days 07/13/19 09/13/19 Unknown Rx units Metoclopramide [Reglan TAB] 5 mg PO ACHS 30 Days tablet 07/13/19 09/13/19 Unknown Rx Metoprolol [Lopressor TAB] 100 mg PO BID #60 tablet 07/13/19 09/13/19 Unknown Rx NIFEdipine XL [Procardia Xl] 60 mg PO QDAY #30 tablet 07/13/19 09/13/19 Unknown Rx Polyethylene Glycol 3350 [Miralax 17 gm PO QDAY 30 Days powd.pack 07/13/19 09/13/19 Unknown Rx 3350] Torsemide [Demadex] 60 mg PO DAILY 30 Days tablet 07/13/19 09/13/19 Unknown Rx Zolpidem [Ambien] 5 mg PO QHS PRN #15 tablet 07/13/19 09/13/19 Unknown Rx cloNIDine [Catapres] 0.1 mg PO Q12H PRN #60 tablet 07/13/19 09/13/19 Unknown Rx hydrALAZINE [Apresoline TAB] 100 mg PO Q8HR #90 tab 07/13/19 09/13/19 Unknown Rx oxyCODONE [roxiCODONE] 5 mg PO Q4H PRN #20 tablet 07/13/19 09/13/19 Unknown Rx Active Medications: Generic Name Dose Route Start Last Admin Trade Name Freq PRN Reason Stop Dose Admin Acetaminophen 650 mg 09/13/19 05:02 Tylenol PO Q4H PRN Pain MILD(1-3)/Fever >100.5/CASTILLO Albumin Human 25 gm 09/13/19 13:06 Alburx 25% (Albumin) IV FRANCOIS PRN Hypotension Alteplase, Recombinant 2 mg 09/13/19 13:06 Cathflo IV FRANCOIS PRN LINE FLUSH Dextrose 50 ml 09/13/19 06:10 D50w (25gm) Syringe IV Q30MIN PRN Hypoglycemia Protocol Epoetin Jacoby 10,000 unit 09/13/19 13:06 09/13/19 17:00 Procrit SUB-Q 10,000 unit FRANCOIS PRN Administration hemodialysis Heparin Sodium (Porcine) 5,000 unit 09/13/19 22:00 09/13/19 21:56 Heparin SUB-Q 5,000 unit Q12HR FATMATA Administration Sodium Chloride 100 mls @ 999 mls/hr 09/13/19 13:06 Nacl 0.9% IV FRANCOIS PRN Hypotension Piperacillin Sod/Tazobactam Sod 2.25 gm in 50 mls @ 100 mls/hr 09/13/19 15:00 09/14/19 06:40 Zosyn/Ns 2.25 Gm/50ml IV 100 mls/hr Q8HR FATMATA Administration Protocol Insulin Human Regular 0 units 09/13/19 07:30 09/13/19 22:00 Humulin R SUB-Q 6 units ACHS FATMATA Administration Protocol Magnesium Hydroxide 30 ml 09/13/19 05:02 Milk Of Magnesia PO Q4H PRN Constipation Ondansetron HCl 4 mg 09/13/19 05:02 09/14/19 06:43 Zofran IV 4 mg Q8H PRN Administration Nausea And Vomiting Sodium Chloride 10 ml 09/13/19 10:00 09/13/19 21:57 Sodium Chloride Flush Syringe 10 Ml IV 10 ml BID FATMATA Administration Sodium Chloride 10 ml 09/13/19 05:02 Sodium Chloride Flush Syringe 10 Ml IV PRN PRN LINE FLUSH Tramadol HCl 50 mg 09/13/19 13:51 Ultram PO Q6H PRN Pain, Moderate (4-6)
--- NOTE | 2019-09-14 09:53 | Progress Note ---
Assessment and Plan S/p lexiscan MPI stress test yesterday which was negative for significant ischemia, EF 37%. Echo reviewed - EF 45-50%, pseudonormalization, LA and RA mildly dilated, RV mildly dilated, mod AR, mild to mod MR, mild to mod TR, RVSP 64mmHg, trivial pericardial effusion. CE elevation pattern appears c/w NSTEMI type II. No plans for additional cardiac w/u at this time. Optimize BPs - resume home anti-hypertensive regimen. Nothing further to add from cardiac perspective at this time. Will sign off. Recommend follow up in our office with Dr. Rikki Arana within 1-2 weeks ([phone]). The patient has been seen in conjunction with Dr. Vaz who agrees with the assessment and plan of care. - Patient Problems (1) Abdominal pain Current Visit: Yes Status: Acute (2) Nausea & vomiting Current Visit: Yes Status: Acute (3) ESRD (end stage renal disease) Current Visit: Yes Status: Chronic (4) Left bundle branch block (LBBB) Current Visit: Yes Status: Chronic (5) NSTEMI (non-ST elevated myocardial infarction) Current Visit: Yes Status: Acute Plan to address problem: type II (6) HTN (hypertension) Current Visit: Yes Status: Chronic Qualifiers: Hypertension type: essential hypertension Qualified Code(s): I10 - Essential (primary) hypertension (7) Diabetes Current Visit: Yes Status: Chronic Qualifiers: Diabetes mellitus type: type 2 Diabetes mellitus ferry terminal supervisor insulin use: with alf use Diabetes mellitus complication status: with skin complications Diabetes mellitus complication detail: with foot ulcer Qualified Code(s): E11.621 - Type 2 diabetes mellitus with foot ulcer; L97.509 - Non-pressure chronic ulcer of other part of unspecified foot with unspecified severity; Z79.4 - terminal operations supervisor (current) use of insulin (8) Diabetic ulcer of heel Current Visit: Yes Status: Chronic Qualifiers: Diabetes mellitus type: type 1 Laterality: left Non-pressure ulcer stage: unspecified non-pressure ulcer stage Qualified Code(s): E10.621 - Type 1 diabetes mellitus with foot ulcer; L97.429 - Non-pressure chronic ulcer of left heel and midfoot with unspecified severity Subjective Date of service: 09/14/19 Principal diagnosis: abd pain, n/v, LBBB Interval history: pt resting in bed, no current complaints. in SR on tele. Objective Last Vital Signs Temp 98.4 F 09/14/19 08:36 Pulse 84 09/14/19 03:20 Resp 18 09/14/19 08:36 BP 172/75 09/14/19 08:36 Pulse Ox 99 09/14/19 03:20 - Physical Examination General: No Apparent Distress HEENT: Positive: PERRL Neck: Positive: neck supple, trachea midline Cardiac: Positive: Reg Rate and Rhythm, S1/S2 Lungs: Positive: Decreased Breath Sounds Neuro: Positive: Grossly Intact Abdomen: Positive: Unremarkable Skin: Negative: Rash Musculoskeletal: No Pain Extremities: Absent: edema - Labs and Meds Coagulation 09/13/19 09/14/19 Range/Units 15:26 02:47 PT 14.7 15.3 H (12.2-14.9) Sec. INR 1.16 H 1.22 H (0.87-1.13) APTT 41.8 H 42.9 H (24.2-36.6) Sec. CBC 09/14/19 Range/Units 02:47 WBC 17.9 H (4.5-11.0) K/mm3 RBC 4.51 (3.65-5.03) M/mm3 Hgb 10.0 L (10.1-14.3) gm/dl Hct 31.2 (30.3-42.9) % Plt Count 382 (140-440) K/mm3 Lymph # [facility] Comprehensive Metabolic Panel 09/14/19 Range/Units 02:47 Sodium 138 (137-145) mmol/L Potassium 3.6 (3.6-5.0) mmol/L Chloride 91.5 L (98-107) mmol/L Carbon Dioxide 26 (22-30) mmol/L BUN 25 H (7-17) mg/dL Creatinine 4.5 H (0.7-1.2) mg/dL Glucose 182 H (65-100) mg/dL Calcium 10.0 (8.4-10.2) mg/dL - Allied health notes Allied health notes reviewed: nursing
[2019-09-14] MEDS: HEPARIN 5,000 UNIT/1 ML VIAL SUB-Q SCH ×2 (10:49→21:06)
--- NOTE | 2019-09-14 11:49 | Treadmill Report ---
NUCLEAR PERFUSION SCAN REFERRING PHYSICIAN: Hospitalist service. PROTOCOL: The patient was brought to the stress lab in a postabsorptive state, given 10 mCi of technetium 99m. Shortly thereafter, the patient underwent rest imaging. The patient underwent Lexiscan stress test per standard protocol. At peak stress, the patient was given 26 mCi of technetium 99m. Shortly thereafter, the patient underwent stress imaging. Raw imaging reveals significant GI artifact, no significant motion artifact. SPECT images examined carefully in horizontal long axis, vertical long axis, and short axis views. Technically difficult study, but grossly probably no evidence of significant degree of ischemia or prior infarction. Inferior wall is partially obscured by GI artifact. Chamber size is normal in systole and diastole. Gated wall motion reveals moderate global LV hypokinesis with a calculated ejection fraction of 37%. No TID. CONCLUSIONS: 1. Technically difficult study, but grossly probably normal without evidence of significant degree of ischemia, inferior wall is partially obscured by GI artifact. 2. Moderate global LV hypokinesis. Calculated ejection fraction of 37%. Recommend transthoracic echocardiography and clinical correlation. JOB# [id number] SBM/NTS
--- NOTE | 2019-09-14 14:37 | Progress Note ---
Assessment and Plan / Nausea & vomiting and abdominal pain Probably secondary to gastroparesis cont on IV Zofran as needed. Will also place on IV Reglan scheduled /Ascites with volume overload -Ordered for paracentesis / Left bundle branch block (LBBB) with elevated troponin Patient denies any chest pain at this time. EKG findings and elevated troponin discussed with the on-call pipeline superintendent by the ER physician. Status post stress test - which is normal / Diabetic ulcer of heel, chronic nonhealing s/p bedside debridement by Dr. Rowell Patient was recommended amputation in the past but she refused consulted to wound care team for evaluation and management / Diabetes type II on insulin We will monitor Accu-Cheks continue routine home medications. / End-stage renal disease on hemodialysis Patient is on dialysis Tuesday, and Saturdays. consulted nephrology for dialysis during this admission / HTN (hypertension) Blood pressure stable. Will continue routine home medications and monitor vital signs closely. / DVT prophylaxis Patient placed on subcu to heparin / Full code status Disposition: Home with home health when medically stable and tolerates diet Brief History: 54-year-old -[place] female with known history of end-stage renal disease on dialysis Tuesdays and Saturdays, history of diabetes mellitus with a chronic right heel ulcer and history of hypertension presenting to the emergency room complaining of nausea and vomiting with associated abdominal pain. had normal stress test, s/p debridement at bedside. will place on PPI, clear liquid diet, as needed reglan. cont current Mx, follow 2d echo, monitor clinically Hospitalist Physical exam: GENERAL: Elderly -Lao female lying on bed appeared to be chronically ill HEENT: Normocephalic. Atraumatic. No conjunctival congestion or icterus. Patient has moist mucous membranes. NECK: Supple. Trachea midline. CHEST/LUNGS: Clear to auscultated bilaterally, breathing nonlabored. No wheezes crackles or rhonchi. HEART/CARDIOVASCULAR: Regular in rate and rhythm. S1 and S2 positive. ABDOMEN: Abdomen is soft, nontender, distended. Patient has normal bowel sounds. SKIN: There is no rash. Warm and dry. NEURO: No focal motor deficit. Follows command. MUSCULOSKELETAL: No joint effusion or tenderness. EXTRIMITY: Right foot with wound dressing, left AKA PSYCH: Cooperative. Subjective Date of service: 09/14/19 Principal diagnosis: abd pain, n/v, LBBB Interval history: Patient seen and examined. Medical records and medication list reviewed. No acute event overnight noted by the RN. Patient continue to have a nausea and very poor oral intake Discussed plan of care at bedside with patient. Status post I&D on the right foot at the bedside yesterday PT eval pending Objective - Constitutional Vitals: Vital Signs - 12hr 09/14/19 09/14/19 09/14/19 03:20 08:36 11:39 Temperature 98.7 F 98.4 F Pulse Rate 84 Pulse Rate [ 67 Right Dorsalis Pedis] Respiratory 16 18 16 Rate Blood Pressure 158/75 172/75 O2 Sat by Pulse 99 96 Oximetry - Labs CBC & Chem 7: 09/14/19 02:47 09/14/19 02:47 Labs: Abnormal lab results 09/13/19 09/13/19 09/13/19 Range/Units 15:26 18:18 21:45 WBC (4.5-11.0) K/mm3 Hgb (10.1-14.3) gm/dl MCV (79-97) fl MCH (28-32) pg RDW (13.2-15.2) % Seg Neuts % (Manual) (40.0-70.0) % Lymphocytes % (Manual) (13.4-35.0) % Seg Neutrophils # Man (1.8-7.7) K/mm3 Lymphocytes # (Manual) (1.2-5.4) K/mm3 PT (12.2-14.9) Sec. INR 1.16 H (0.87-1.13) APTT 41.8 H (24.2-36.6) Sec. Chloride (98-107) mmol/L BUN (7-17) mg/dL Creatinine (0.7-1.2) mg/dL Glucose (65-100) mg/dL POC Glucose 277 H 310 H (70-105) 09/14/19 09/14/19 09/14/19 Range/Units 02:47 02:47 02:47 WBC 17.9 H (4.5-11.0) K/mm3 Hgb 10.0 L (10.1-14.3) gm/dl MCV 69 L (79-97) fl MCH 22 L (28-32) pg RDW 19.5 H (13.2-15.2) % Seg Neuts % (Manual) 91.0 H (40.0-70.0) % Lymphocytes % (Manual) 4.0 L (13.4-35.0) % Seg Neutrophils # Man 16.3 H (1.8-7.7) K/mm3 Lymphocytes # (Manual) 0.7 L (1.2-5.4) K/mm3 PT 15.3 H (12.2-14.9) Sec. INR 1.22 H (0.87-1.13) APTT 42.9 H (24.2-36.6) Sec. Chloride 91.5 L (98-107) mmol/L BUN 25 H (7-17) mg/dL Creatinine 4.5 H (0.7-1.2) mg/dL Glucose 182 H (65-100) mg/dL POC Glucose (70-105) 09/14/19 09/14/19 Range/Units 08:51 12:31 WBC (4.5-11.0) K/mm3 Hgb (10.1-14.3) gm/dl MCV (79-97) fl MCH (28-32) pg RDW (13.2-15.2) % Seg Neuts % (Manual) (40.0-70.0) % Lymphocytes % (Manual) (13.4-35.0) % Seg Neutrophils # Man (1.8-7.7) K/mm3 Lymphocytes # (Manual) (1.2-5.4) K/mm3 PT (12.2-14.9) Sec. INR (0.87-1.13) APTT (24.2-36.6) Sec. Chloride (98-107) mmol/L BUN (7-17) mg/dL Creatinine (0.7-1.2) mg/dL Glucose (65-100) mg/dL POC Glucose 255 H 237 H (70-105)
--- NOTE | 2019-09-14 15:09 | Procedure Note ---
Date of procedure: 09/14/19 Pre-op diagnosis: ascites Post-op diagnosis: same Procedure: US paracentesis Findings: moderate ascites Anesthesia: local Surgeon: KARLEE SLOAN Estimated blood loss: none Pathology: none Specimen disposition: discarded Condition: stable Disposition: floor
--- NOTE | 2019-09-14 15:25 | Ultrasound Report ---
ULTRASOUND-GUIDED PARACENTESIS HISTORY: ascitis. PROCEDURE: The risks (including but not limited to bleeding, infection, and bowel injury) and benefi ts were explained to the patient and informed consent was obtained. A time out procedure was perform ed. Ultrasound was used to evaluate the abdomen and locate the largest ascites fluid pocket. Once the sk in was marked, the procedure site was prepped and draped in the usual sterile fashion and lidocaine w as used for local anesthesia. A skin evelyn was made and a 5 [place]an centesis catheter was placed. The patient was monitored closely throughout the procedure, and a total of 1900 mL of clear yellow fluid was aspirated. No labs were ordered. The patient tolerated the procedure well with no complications. IMPRESSION: Successful ultrasound-guided paracentesis as described. Signer Name: Trevon Martinez Jr, MD Signed: 09/14/2019 3:21 PM Workstation Name: [id number]
[2019-09-14] MEDS: METOCLOPRAMIDE 10 MG/2 ML INJ IV SCH ×2 (16:01→21:07)
[2019-09-14 20:36] LABS: Hepatitis B Surface Antigen Non-Reactive (Negative); Hepatitis C Virus Antibody Non-Reactive (NonReactive)
[2019-09-15] MEDS: ONDANSETRON 4 MG/2 ML INJ IV PRN ×2 (04:14→12:54)
[2019-09-15] MEDS: PIPERACIL-TAZO 2.25 GM/50 ML 2.25 GM/50 ML BAG IV SCH ×3 (05:51→21:56)
[2019-09-15] MEDS: METOCLOPRAMIDE 10 MG/2 ML INJ IV SCH ×4 (08:34→21:50)
[2019-09-15] MEDS: INSULIN REGULAR, HUMAN 100 UNITS/1 ML SUB-Q SCH ×5 (08:34→21:51)
--- NOTE | 2019-09-15 10:33 | Progress Note ---
Assessment and Plan - Patient Problems (1) ESRD (end stage renal disease) Current Visit: No Status: Chronic Plan to address problem: Maintained on inpatient TTS hemodialysis schedule. (2) Elevated troponin Current Visit: Yes Status: Acute Plan to address problem: Evaluation noted by cardiology. Normal echocardiogram. We'll defer further management per cardiology recommendations. (3) Abdominal pain Current Visit: Yes Status: Acute Plan to address problem: CT abdomen noted with evidence of cholelithiasis. She continues to have discomfort and pain. Recommendations and management per primary attending. Symptomatic treatment of nausea per primary attending. 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 (5) Type 2 diabetes mellitus with diabetic chronic kidney disease Current Visit: No Status: Chronic Qualifiers: Chronic kidney disease stage: on chronic dialysis Plan to address problem: Diabetes management per primary attending (6) Anemia in chronic illness Current Visit: No Status: Chronic Plan to address problem: XI therapy on hemodialysis to maintain hemoglobin 1011.5. Subjective Date of service: 09/15/19 Principal diagnosis: abd pain, n/v, LBBB Interval history: Pt awake, alert, in NAD Objective - Vital Signs Vital signs: Vital Signs - 12hr 09/14/19 09/14/19 09/14/19 23:00 23:35 23:37 Temperature 98.7 F Pulse Rate 82 Respiratory 18 18 Rate Blood Pressure 128/57 O2 Sat by Pulse 100 Oximetry 09/15/19 09/15/19 09/15/19 04:42 04:43 06:00 Temperature 97.8 F Pulse Rate 81 81 Respiratory 18 Rate Blood Pressure 179/77 O2 Sat by Pulse 96 Oximetry 09/15/19 09/15/19 07:52 09:35 Temperature 98.7 F Pulse Rate 79 Respiratory 18 18 Rate Blood Pressure 182/80 O2 Sat by Pulse 98 Oximetry - General Appearance General appearance: well-developed, well-nourished, appears stated age EENT: ATNC, PERRL, mucous membranes moist Neck: no JVD Respiratory: Present: Clear to Ascultation Cardiology: regular, S1S2 Gastrointestinal: normoactive bowel sounds Integumentary: no rash Neurologic: no focal deficit, alert and oriented x3, strength 5/5, CN 3-12 intact - Lab 09/14/19 02:47 09/14/19 02:47 Most recent lab results Calcium 10.0 mg/dL (8.4-10.2) 09/14/19 02:47 Medications & Allergies - Medications Allergies/Adverse Reactions: Allergies amlodipine Allergy (Verified 04/20/19 11:49) Itching losartan Allergy (Verified 04/20/19 11:49) Itching sulfamethoxazole [From Bactrim] Allergy (Verified 04/20/19 11:49) Rash trimethoprim [From Bactrim] Allergy (Verified 04/20/19 11:49) Rash morphine Adverse Reaction (Verified 04/20/19 11:49) Vomiting Home Medications: Home Medications Medication Instructions Recorded Confirmed Last Taken Type Ascorbic Acid [Vitamin C] 500 mg PO BID #14 tablet 07/13/19 09/13/19 Unknown Rx Epoetin Jacoby 10,000 Unit [Procrit] 5,000 unit IV FRANCOIS PRN vial 07/13/19 09/13/19 Unknown Rx Ferrous Sulfate [Feosol 325 MG tab] 325 mg PO BID #14 tablet 07/13/19 09/13/19 Unknown Rx Folic Acid [Folvite] 1 mg PO QDAY #7 tablet 07/13/19 09/13/19 Unknown Rx Gabapentin 100 mg PO BID #60 capsule 07/13/19 09/13/19 Unknown Rx Insulin Glargine [Lantus VIAL] 15 units SUB-Q QHS 30 Days units 07/13/19 09/13/19 Unknown Rx Lispro Insulin [HumaLOG] See Protocol SUB-Q ACHS 30 Days 07/13/19 09/13/19 Unknown Rx units Metoclopramide [Reglan TAB] 5 mg PO ACHS 30 Days tablet 07/13/19 09/13/19 Unknown Rx Metoprolol [Lopressor TAB] 100 mg PO BID #60 tablet 07/13/19 09/13/19 Unknown Rx NIFEdipine XL [Procardia Xl] 60 mg PO QDAY #30 tablet 07/13/19 09/13/19 Unknown Rx Polyethylene Glycol 3350 [Miralax 17 gm PO QDAY 30 Days powd.pack 07/13/19 09/13/19 Unknown Rx 3350] Torsemide [Demadex] 60 mg PO DAILY 30 Days tablet 07/13/19 09/13/19 Unknown Rx Zolpidem [Ambien] 5 mg PO QHS PRN #15 tablet 07/13/19 09/13/19 Unknown Rx cloNIDine [Catapres] 0.1 mg PO Q12H PRN #60 tablet 07/13/19 09/13/19 Unknown Rx hydrALAZINE [Apresoline TAB] 100 mg PO Q8HR #90 tab 07/13/19 09/13/19 Unknown Rx oxyCODONE [roxiCODONE] 5 mg PO Q4H PRN #20 tablet 07/13/19 09/13/19 Unknown Rx Active Medications: Generic Name Dose Route Start Last Admin Trade Name Freq PRN Reason Stop Dose Admin Acetaminophen 650 mg 09/13/19 05:02 Tylenol PO Q4H PRN Pain MILD(1-3)/Fever >100.5/CASTILLO Albumin Human 25 gm 09/13/19 13:06 Alburx 25% (Albumin) IV FRANCOIS PRN Hypotension Alteplase, Recombinant 2 mg 09/13/19 13:06 Cathflo IV FRANCOIS PRN LINE FLUSH Dextrose 50 ml 09/13/19 06:10 D50w (25gm) Syringe IV Q30MIN PRN Hypoglycemia Protocol Epoetin Jacoby 10,000 unit 09/13/19 13:06 09/13/19 17:00 Procrit SUB-Q 10,000 unit FRANCOIS PRN Administration hemodialysis Heparin Sodium (Porcine) 5,000 unit 09/13/19 22:00 09/14/19 21:06 Heparin SUB-Q 5,000 unit Q12HR FATMATA Administration Sodium Chloride 100 mls @ 999 mls/hr 09/13/19 13:06 Nacl 0.9% IV FRANCOIS PRN Hypotension Piperacillin Sod/Tazobactam Sod 2.25 gm in 50 mls @ 100 mls/hr 09/13/19 15:00 09/15/19 05:51 Zosyn/Ns 2.25 Gm/50ml IV 100 mls/hr Q8HR FATMATA Administration Protocol Insulin Human Regular 0 units 09/13/19 07:30 09/15/19 08:34 Humulin R SUB-Q 6 units ACHS FATMATA Administration Protocol Magnesium Hydroxide 30 ml 09/13/19 05:02 Milk Of Magnesia PO Q4H PRN Constipation Metoclopramide HCl 10 mg 09/14/19 16:30 09/15/19 08:34 Reglan IV 10 mg ACHS FATMATA Administration Ondansetron HCl 4 mg 09/13/19 05:02 09/15/19 04:14 Zofran IV 4 mg Q8H PRN Administration Nausea And Vomiting Sodium Chloride 10 ml 09/13/19 10:00 09/15/19 06:52 Sodium Chloride Flush Syringe 10 Ml IV 10 ml BID FATMATA Administration Sodium Chloride 10 ml 09/13/19 05:02 Sodium Chloride Flush Syringe 10 Ml IV PRN PRN LINE FLUSH Tramadol HCl 50 mg 09/13/19 13:51 Ultram PO Q6H PRN Pain, Moderate (4-6)
[2019-09-15] MEDS ORDERED: SODIUM CHLORIDE*PRIMING MACHINE ONLY FOR DIALYSIS MC ONE (12:48)
[2019-09-15] MEDS: EPOETIN ALFA 10,000 UNIT/1 ML INJ SUB-Q PRN (12:55)
--- NOTE | 2019-09-15 14:15 | Progress Note ---
Assessment and Plan / Nausea & vomiting and abdominal pain Probably secondary to gastroparesis cont on IV Zofran as needed, IV Reglan scheduled will also start on ativan, on PPI if no improvement will consult GI /Ascites with volume overload -s/p paracentesis drained 1900 cc fluid / Left bundle branch block (LBBB) with elevated troponin Patient denies any chest pain at this time. EKG findings and elevated troponin discussed with the on-call land management supervisor by the ER physician. Status post stress test - which is normal Echo reviewed - EF 45-50%, pseudonormalization, CE elevation pattern appears c/w NSTEMI type II. No plans for additional cardiac w/u at this time. / Diabetic ulcer of heel, chronic nonhealing s/p bedside debridement by Dr. Rowell Patient was recommended amputation in the past but she refused consulted to wound care team for evaluation and management Getting Zosyn now, wound cx pending / Diabetes type II on insulin We will monitor Accu-Cheks, continue routine home medications. / End-stage renal disease on hemodialysis Patient is on dialysis Tuesday, and Saturdays. consulted nephrology for dialysis during this admission /SIRS likely from chronic diabetic wound, will cont abx, follow wound cx / HTN (hypertension), uncontrolled Will continue routine home medications and monitor vital signs closely. adjust medications as needed / DVT prophylaxis Patient placed on subcu to heparin / Full code status Disposition: Home with home health when medically stable and tolerates diet Brief History: 54-year-old -Ivorian female with known history of end-stage renal disease on dialysis Tuesdays and Saturdays, history of diabetes mellitus with a chronic right heel ulcer and history of hypertension presenting to the emergency room complaining of nausea and vomiting with associated abdominal pain. had normal stress test, s/p debridement at bedside. will place on PPI, clear liquid diet, as needed reglan. cont current Mx, follow 2d echo, monitor clinically Hospitalist Physical exam: GENERAL: Elderly -Ivorian female lying on bed appeared to be chronically ill HEENT: Normocephalic. Atraumatic. No conjunctival congestion or icterus. Patient has moist mucous membranes. NECK: Supple. Trachea midline. CHEST/LUNGS: Clear to auscultated bilaterally, breathing nonlabored. No wheezes crackles or rhonchi. HEART/CARDIOVASCULAR: Regular in rate and rhythm. S1 and S2 positive. ABDOMEN: Abdomen is soft, nontender, distended. Patient has normal bowel sounds. SKIN: There is no rash. Warm and dry. NEURO: No focal motor deficit. Follows command. MUSCULOSKELETAL: No joint effusion or tenderness. EXTRIMITY: Right foot with wound dressing, left AKA PSYCH: Cooperative. Subjective Date of service: 09/15/19 Principal diagnosis: abd pain, n/v, LBBB Interval history: Patient seen and examined. Medical records and medication list reviewed. No acute event overnight noted by the RN. Patient continue to have a nausea and very poor oral intake Discussed plan of care at bedside with patient. PT eval pending Objective - Constitutional Vitals: Vital Signs - 12hr 09/15/19 09/15/19 09/15/19 04:42 04:43 06:00 Temperature 97.8 F Pulse Rate 81 81 Respiratory 18 Rate Blood Pressure 179/77 O2 Sat by Pulse 96 Oximetry 09/15/19 09/15/19 09/15/19 07:10 07:52 09:35 Temperature 98.7 F Pulse Rate 88 79 Respiratory 18 18 Rate Blood Pressure 182/80 O2 Sat by Pulse 98 Oximetry 09/15/19 09/15/19 09/15/19 10:00 10:15 10:30 Temperature 98.1 F Pulse Rate 80 78 76 Respiratory 18 Rate Blood Pressure 149/78 151/80 140/82 O2 Sat by Pulse Oximetry 09/15/19 09/15/19 09/15/19 10:45 11:00 11:15 Temperature Pulse Rate 84 82 80 Respiratory Rate Blood Pressure 156/90 182/102 180/98 O2 Sat by Pulse Oximetry 09/15/19 09/15/19 09/15/19 11:30 11:45 12:00 Temperature Pulse Rate 84 79 78 Respiratory Rate Blood Pressure 184/96 186/101 192/104 O2 Sat by Pulse Oximetry 09/15/19 09/15/19 09/15/19 12:15 12:30 12:45 Temperature Pulse Rate 76 77 78 Respiratory Rate Blood Pressure 192/93 180/87 178/75 O2 Sat by Pulse Oximetry 09/15/19 09/15/19 13:00 13:20 Temperature 98.0 F Pulse Rate 78 80 Respiratory 18 Rate Blood Pressure 170/70 170/80 O2 Sat by Pulse Oximetry - Labs CBC & Chem 7: 09/15/19 14:16 09/15/19 14:16 Labs: Abnormal lab results 09/14/19 09/14/19 09/15/19 Range/Units 16:39 21:49 08:04 POC Glucose 298 H 353 H 334 H (70-105)
[2019-09-15 14:38] LABS: Hematocrit 27.8 % (30.3-42.9); Mean Corpuscular HGB Conc 33 % (30-34); Red Blood Count 4.01 M/mm3 (3.65-5.03); Red Cell Distribution Width 19.1 % (13.2-15.2)
[2019-09-15 14:39] LABS: Mean Corpuscular Volume 69 fl (79-97); Platelet Count 257 K/mm3 (140-440)
[2019-09-15] MEDS: HEPARIN 5,000 UNIT/1 ML VIAL SUB-Q SCH ×2 (14:40→21:52)
[2019-09-15 14:51] LABS: Calcium 9.4 mg/dL (8.4-10.2)
[2019-09-15] MEDS: LORazepam 0.5 MG TAB PO PRN (16:39)
[2019-09-16] MEDS: LORazepam 0.5 MG TAB PO PRN (00:05)
[2019-09-16] MEDS: ONDANSETRON 4 MG/2 ML INJ IV PRN (04:29)
[2019-09-16] MEDS: ACETAMINOPHEN 325 MG TAB PO PRN (04:29)
[2019-09-16] MEDS: PIPERACIL-TAZO 2.25 GM/50 ML 2.25 GM/50 ML BAG IV SCH (05:41)
--- NOTE | 2019-09-16 08:12 | Progress Note ---
Assessment and Plan - Patient Problems (1) ESRD (end stage renal disease) Current Visit: No Status: Chronic Plan to address problem: Maintained on inpatient TTS hemodialysis schedule. (2) Elevated troponin Current Visit: Yes Status: Acute Plan to address problem: Evaluation noted by cardiology. Normal echocardiogram. We'll defer further management per cardiology recommendations. (3) Abdominal pain Current Visit: Yes Status: Acute Plan to address problem: CT abdomen noted with evidence of cholelithiasis. She continues to have discomfort and pain. Recommendations and management per primary attending. Symptomatic treatment of nausea per primary attending. 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 (5) Type 2 diabetes mellitus with diabetic chronic kidney disease Current Visit: No Status: Chronic Qualifiers: Chronic kidney disease stage: on chronic dialysis Plan to address problem: Diabetes management per primary attending (6) Anemia in chronic illness Current Visit: No Status: Chronic Subjective Date of service: 09/16/19 Principal diagnosis: abd pain, n/v, LBBB Interval history: Pt awake, alert, in NAD Objective - Vital Signs Vital signs: Vital Signs - 12hr 09/15/19 09/16/19 09/16/19 23:42 04:58 06:18 Temperature 98.4 F 98.0 F Pulse Rate 86 91 H 82 Respiratory 20 18 Rate Blood Pressure 166/69 175/90 165/76 O2 Sat by Pulse 97 96 96 Oximetry 09/16/19 08:00 Temperature Pulse Rate Respiratory 18 Rate Blood Pressure O2 Sat by Pulse 98 Oximetry - General Appearance General appearance: well-developed, well-nourished, appears stated age EENT: ATNC, PERRL, mucous membranes moist Neck: no JVD Respiratory: Present: Clear to Ascultation Cardiology: regular, S1S2 Gastrointestinal: normoactive bowel sounds Integumentary: no rash Neurologic: no focal deficit, alert and oriented x3, strength 5/5, CN 3-12 intact - Lab 09/15/19 14:16 09/15/19 14:16 Most recent lab results Calcium 9.4 mg/dL (8.4-10.2) 09/15/19 14:16 Medications & Allergies - Medications Allergies/Adverse Reactions: Allergies amlodipine Allergy (Verified 04/20/19 11:49) Itching losartan Allergy (Verified 04/20/19 11:49) Itching sulfamethoxazole [From Bactrim] Allergy (Verified 04/20/19 11:49) Rash trimethoprim [From Bactrim] Allergy (Verified 04/20/19 11:49) Rash morphine Adverse Reaction (Verified 04/20/19 11:49) Vomiting Home Medications: Home Medications Medication Instructions Recorded Confirmed Last Taken Type Ascorbic Acid [Vitamin C] 500 mg PO BID #14 tablet 07/13/19 09/13/19 Unknown Rx Epoetin Jacoby 10,000 Unit [Procrit] 5,000 unit IV FRANCOIS PRN vial 07/13/19 09/13/19 Unknown Rx Ferrous Sulfate [Feosol 325 MG tab] 325 mg PO BID #14 tablet 07/13/19 09/13/19 Unknown Rx Folic Acid [Folvite] 1 mg PO QDAY #7 tablet 07/13/19 09/13/19 Unknown Rx Gabapentin 100 mg PO BID #60 capsule 07/13/19 09/13/19 Unknown Rx Insulin Glargine [Lantus VIAL] 15 units SUB-Q QHS 30 Days units 07/13/19 09/13/19 Unknown Rx Lispro Insulin [HumaLOG] See Protocol SUB-Q ACHS 30 Days 07/13/19 09/13/19 Unknown Rx units Metoclopramide [Reglan TAB] 5 mg PO ACHS 30 Days tablet 07/13/19 09/13/19 Unknown Rx Metoprolol [Lopressor TAB] 100 mg PO BID #60 tablet 07/13/19 09/13/19 Unknown Rx NIFEdipine XL [Procardia Xl] 60 mg PO QDAY #30 tablet 07/13/19 09/13/19 Unknown Rx Polyethylene Glycol 3350 [Miralax 17 gm PO QDAY 30 Days powd.pack 07/13/19 09/13/19 Unknown Rx 3350] Torsemide [Demadex] 60 mg PO DAILY 30 Days tablet 07/13/19 09/13/19 Unknown Rx Zolpidem [Ambien] 5 mg PO QHS PRN #15 tablet 07/13/19 09/13/19 Unknown Rx cloNIDine [Catapres] 0.1 mg PO Q12H PRN #60 tablet 07/13/19 09/13/19 Unknown Rx hydrALAZINE [Apresoline TAB] 100 mg PO Q8HR #90 tab 07/13/19 09/13/19 Unknown Rx oxyCODONE [roxiCODONE] 5 mg PO Q4H PRN #20 tablet 07/13/19 09/13/19 Unknown Rx Active Medications: Generic Name Dose Route Start Last Admin Trade Name Freq PRN Reason Stop Dose Admin Acetaminophen 650 mg 09/13/19 05:02 09/16/19 04:29 Tylenol PO 650 mg Q4H PRN Administration Pain MILD(1-3)/Fever >100.5/CASTILLO Albumin Human 25 gm 09/13/19 13:06 Alburx 25% (Albumin) IV FRANCOIS PRN Hypotension Alteplase, Recombinant 2 mg 09/13/19 13:06 Cathflo IV FRANCOIS PRN LINE FLUSH Dextrose 50 ml 09/13/19 06:10 D50w (25gm) Syringe IV Q30MIN PRN Hypoglycemia Protocol Epoetin Jacoby 10,000 unit 09/13/19 13:06 09/15/19 12:55 Procrit SUB-Q 10,000 unit FRANCOIS PRN Administration hemodialysis Heparin Sodium (Porcine) 5,000 unit 09/13/19 22:00 09/15/19 21:52 Heparin SUB-Q Not Given Q12HR FATMATA Sodium Chloride 100 mls @ 999 mls/hr 09/13/19 13:06 Nacl 0.9% IV FRANCOIS PRN Hypotension Piperacillin Sod/Tazobactam Sod 2.25 gm in 50 mls @ 100 mls/hr 09/13/19 15:00 09/16/19 05:41 Zosyn/Ns 2.25 Gm/50ml IV 100 mls/hr Q8HR FATMATA Administration Protocol Insulin Human Regular 0 units 09/13/19 07:30 09/15/19 21:51 Humulin R SUB-Q 8 units ACHS FATMATA Administration Protocol Lorazepam 0.5 mg 09/15/19 16:31 09/16/19 00:05 Ativan PO 0.5 mg Q8H PRN Administration Agitation Magnesium Hydroxide 30 ml 09/13/19 05:02 Milk Of Magnesia PO Q4H PRN Constipation Metoclopramide HCl 10 mg 09/14/19 16:30 09/15/19 21:50 Reglan IV 10 mg ACHS FATMATA Administration Ondansetron HCl 4 mg 09/13/19 05:02 09/16/19 04:29 Zofran IV 4 mg Q8H PRN Administration Nausea And Vomiting Sodium Chloride 10 ml 09/13/19 10:00 09/15/19 21:50 Sodium Chloride Flush Syringe 10 Ml IV 10 ml BID FATMATA Administration Sodium Chloride 10 ml 09/13/19 05:02 09/16/19 04:31 Sodium Chloride Flush Syringe 10 Ml IV 10 ml PRN PRN Administration LINE FLUSH
[2019-09-16] MEDS: INSULIN REGULAR, HUMAN 100 UNITS/1 ML SUB-Q SCH ×5 (08:27→22:17)
[2019-09-16] MEDS: METOCLOPRAMIDE 10 MG/2 ML INJ IV SCH ×4 (08:30→22:17)
[2019-09-16] MEDS: HEPARIN 5,000 UNIT/1 ML VIAL SUB-Q SCH ×2 (09:55→22:20)
[2019-09-16] MEDS ORDERED: EPOETIN ALFA 10,000 UNIT/1 ML INJ IV PRN (12:40)
[2019-09-16] MEDS: PANTOPRAZOLE 40 MG INJ IV SCH (13:52)
[2019-09-16] MEDS: hydrALAZINE 100 MG TAB PO SCH ×2 (13:53→22:16)
[2019-09-16] MEDS: NIFEdipine XL 60 MG TAB PO SCH (13:53)
[2019-09-16] MEDS: LORazepam 1 MG TAB PO SCH ×2 (13:53→22:22)
[2019-09-16] MEDS: CLINDAMYCIN 300 MG CAP PO SCH ×2 (13:53→22:16)
--- NOTE | 2019-09-16 13:59 | Progress Note ---
Assessment and Plan / Nausea & vomiting and abdominal pain Probably secondary to gastroparesis cont on IV Zofran as needed, IV Reglan scheduled will also cont on ativan, on PPI will consult GI as symptom persisted /Ascites with volume overload -s/p paracentesis drained 1900 cc fluid / Left bundle branch block (LBBB) with elevated troponin Patient denies any chest pain at this time. EKG findings and elevated troponin discussed with the on-call district claims manager by the ER physician. Status post stress test - which is normal Echo reviewed - EF 45-50%, pseudonormalization, CE elevation pattern appears c/w NSTEMI type II. No plans for additional cardiac w/u at this time. / Diabetic ulcer of heel, chronic nonhealing s/p bedside debridement by Dr. Rowell Patient was recommended amputation in the past but she refused consulted to wound care team for evaluation and management Getting Zosyn now, wound cx pending / Diabetes type II on insulin We will monitor Accu-Cheks, continue routine home medications. / End-stage renal disease on hemodialysis Patient is on dialysis Tuesday, and Saturdays. consulted nephrology for dialysis during this admission /SIRS likely from chronic diabetic wound, will cont abx, follow wound cx / HTN (hypertension), uncontrolled Will continue routine home medications and monitor vital signs closely. adjust medications as needed / DVT prophylaxis Patient placed on subcu to heparin / Full code status Disposition: Home with home health when medically stable and tolerates diet Brief History: 54-year-old -[place] female with known history of end-stage renal diseas e on dialysis Tuesdays and Saturdays, history of diabetes mellitus with a chronic right heel ulcer and history of hypertension presenting to the emergency room complaining of nausea and vomiting with associated abdominal pain. had normal stress test, s/p debridement at bedside. will place on PPI, clear liquid diet, as needed reglan. cont current Mx, follow 2d echo, monitor clinically Hospitalist Physical exam: GENERAL: Elderly -[place] female lying on bed appeared to be chronically ill HEENT: Normocephalic. Atraumatic. No conjunctival congestion or icterus. Patient has moist mucous membranes. NECK: Supple. Trachea midline. CHEST/LUNGS: Clear to auscultated bilaterally, breathing nonlabored. No wheezes crackles or rhonchi. HEART/CARDIOVASCULAR: Regular in rate and rhythm. S1 and S2 positive. ABDOMEN: Abdomen is soft, nontender, distended. Patient has normal bowel sounds. SKIN: There is no rash. Warm and dry. NEURO: No focal motor deficit. Follows command. MUSCULOSKELETAL: No joint effusion or tenderness. EXTRIMITY: Right foot with wound dressing, left AKA PSYCH: Cooperative. Subjective Date of service: 09/16/19 Principal diagnosis: abd pain, n/v, LBBB Interval history: Patient seen and examined. Medical records and medication list reviewed. No acute event overnight noted by the RN. Patient continue to have a nausea and very poor oral intake Discussed plan of care at bedside with patient. PT eval pending Objective - Constitutional Vitals: Vital Signs - 12hr 09/16/19 09/16/19 09/16/19 04:58 06:18 08:00 Temperature 98.0 F Pulse Rate 91 H 82 Respiratory 18 18 Rate Blood Pressure 175/90 165/76 O2 Sat by Pulse 96 96 98 Oximetry 09/16/19 09/16/19 08:25 11:53 Temperature 98.6 F 99.1 F Pulse Rate 82 82 Respiratory 18 18 Rate Blood Pressure 178/82 171/85 O2 Sat by Pulse 97 98 Oximetry - Labs CBC & Chem 7: 09/17/19 06:56 09/17/19 06:56 Labs: Abnormal lab results 09/15/19 09/15/19 09/15/19 Range/Units 14:16 14:16 14:54 WBC 17.7 H (4.5-11.0) K/mm3 Hgb 9.0 L (10.1-14.3) gm/dl Hct 27.8 L (30.3-42.9) % MCV 69 L (79-97) fl MCH 23 L (28-32) pg RDW 19.1 H (13.2-15.2) % Sodium 133 L (137-145) mmol/L Chloride 89.6 L (98-107) mmol/L BUN 21 H (7-17) mg/dL Creatinine 3.3 H (0.7-1.2) mg/dL Glucose 270 H (65-100) mg/dL POC Glucose 296 H (70-105) 09/15/19 09/16/19 09/16/19 Range/Units 20:43 08:37 12:05 WBC (4.5-11.0) K/mm3 Hgb (10.1-14.3) gm/dl Hct (30.3-42.9) % MCV (79-97) fl MCH (28-32) pg RDW (13.2-15.2) % Sodium (137-145) mmol/L Chloride (98-107) mmol/L BUN (7-17) mg/dL Creatinine (0.7-1.2) mg/dL Glucose (65-100) mg/dL POC Glucose 369 H 277 H 287 H (70-105)
[2019-09-16] MEDS ORDERED: INSULIN GLARGINE 100 UNITS/ML SUB-Q SCH (22:00)
[2019-09-16] MEDS: GABAPENTIN 100 MG CAP PO SCH (22:16)
[2019-09-16] MEDS: FERROUS SULFATE 325 MG TAB PO SCH (22:17)
[2019-09-16] MEDS: ASCORBIC ACID 500 MG TAB PO SCH (22:17)
[2019-09-16] MEDS: METOPROLOL TARTRATE 100 MG TAB PO SCH (22:18)
[2019-09-16] MEDS: ZOLPIDEM 5 MG TAB PO PRN (22:19)
[2019-09-16] MEDS: INSULIN GLARGINE 100 UNITS/ML SUB-Q SCH (22:19)
[2019-09-17] MEDS: hydrALAZINE 100 MG TAB PO SCH ×3 (07:54→22:34)
[2019-09-17] MEDS: LORazepam 1 MG TAB PO SCH ×3 (07:54→22:34)
[2019-09-17] MEDS: METOCLOPRAMIDE 10 MG/2 ML INJ IV SCH ×4 (07:54→22:35)
[2019-09-17] MEDS: CLINDAMYCIN 300 MG CAP PO SCH (07:55)
[2019-09-17 08:07] LABS: Hematocrit 25.3 % (30.3-42.9); Hemoglobin 8.2 gm/dl (10.1-14.3); Mean Corpuscular HGB Conc 32 % (30-34); Platelet Count 402 K/mm3 (140-440); Red Blood Count 3.64 M/mm3 (3.65-5.03); Red Cell Distribution Width 19.2 % (13.2-15.2)
[2019-09-17 08:08] LABS: Mean Corpuscular Volume 70 fl (79-97)
[2019-09-17 08:23] LABS: Calcium 9.1 mg/dL (8.4-10.2)
[2019-09-17 09:50] LABS: Basophils % (Manual) 0 % (0.0-1.8); Eosinophils % (Manual) 0 % (0.0-4.3); Total Cells Counted 100
[2019-09-17] MEDS: INSULIN REGULAR, HUMAN 100 UNITS/1 ML SUB-Q SCH ×4 (09:50→22:36)
[2019-09-17 09:51] LABS: Anisocytosis 2+; Hypochromasia 2+; Poikilocytosis 2+; Target Cells 2+; Tear Drop Cells Rare
[2019-09-17] MEDS: PANTOPRAZOLE 40 MG INJ IV SCH (09:51)
[2019-09-17] MEDS: TORSEMIDE 10 MG TAB PO SCH (09:51)
[2019-09-17 09:52] LABS: Large Platelets Few; Ovalocytes Few; Platelet Estimate Consistent w Auto
[2019-09-17] MEDS: METOPROLOL TARTRATE 100 MG TAB PO SCH ×2 (09:55→22:34)
[2019-09-17] MEDS: NIFEdipine XL 60 MG TAB PO SCH (09:55)
[2019-09-17] MEDS: FERROUS SULFATE 325 MG TAB PO SCH ×2 (09:55→22:34)
[2019-09-17] MEDS: GABAPENTIN 100 MG CAP PO SCH ×2 (09:55→22:34)
[2019-09-17] MEDS: HEPARIN 5,000 UNIT/1 ML VIAL SUB-Q SCH ×2 (09:57→22:37)
[2019-09-17] MEDS: FOLIC ACID 1 MG TAB PO SCH (09:57)
[2019-09-17] MEDS: ASCORBIC ACID 500 MG TAB PO SCH ×2 (09:57→22:34)
[2019-09-17] MEDS ORDERED: TORSEMIDE 60 MG PO SCH (10:00)
[2019-09-17] MEDS: POLYETHYLENE GLYCOL 3350 17 GM POWDER PO SCH (10:04)
--- NOTE | 2019-09-17 11:05 | Progress Note ---
Assessment and Plan - Patient Problems (1) Diabetic ulcer of heel Current Visit: Yes Status: Chronic Qualifiers: Diabetes mellitus type: type 1 Laterality: left Non-pressure ulcer stage: unspecified non-pressure ulcer stage Qualified Code(s): E10.621 - Type 1 diabetes mellitus with foot ulcer; L97.429 - Non-pressure chronic ulcer of left heel and midfoot with unspecified severity Plan to address problem: Continue wound care. 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 She is a bit drowsy. She received Ativan after getting Ambien earlier last night. Objective - Exam Narrative Exam: Middle aged -Cong[place]ese female lying in bed in no acute distress HEENT: NCAT, pink oral mucous membrane Neck: Supple, no venous distention CVS: S1S2 RRR with no murmur, rub or gallop Chest: Clear to auscultation Abdomen: Protuberant, soft, nontender, no organomegaly, bowel sounds are present Extremities: Dressing in Foot clean and dry Neuro: Awake, alert no focal deficits - Vital Signs Vital signs: Vital Signs - 12hr 09/17/19 09/17/19 09/17/19 03:54 08:07 09:55 Temperature 98.4 F 97.5 F L Pulse Rate 74 80 Respiratory 18 18 Rate Blood Pressure 136/67 103/50 O2 Sat by Pulse 98 Oximetry - Lab 09/17/19 06:56 09/17/19 06:56 Most recent lab results Calcium 9.1 mg/dL (8.4-10.2) 09/17/19 06:56 Medications & Allergies - Medications Allergies/Adverse Reactions: Allergies amlodipine Allergy (Verified 04/20/19 11:49) Itching losartan Allergy (Verified 04/20/19 11:49) Itching sulfamethoxazole [From Bactrim] Allergy (Verified 04/20/19 11:49) Rash trimethoprim [From Bactrim] Allergy (Verified 04/20/19 11:49) Rash morphine Adverse Reaction (Verified 04/20/19 11:49) Vomiting Home Medications: Home Medications Medication Instructions Recorded Confirmed Last Taken Type Ascorbic Acid [Vitamin C] 500 mg PO BID #14 tablet 07/13/19 09/13/19 Unknown Rx Epoetin Jacoby 10,000 Unit [Procrit] 5,000 unit IV FRANCOIS PRN vial 07/13/19 09/13/19 Unknown Rx Ferrous Sulfate [Feosol 325 MG tab] 325 mg PO BID #14 tablet 07/13/19 09/13/19 Unknown Rx Folic Acid [Folvite] 1 mg PO QDAY #7 tablet 07/13/19 09/13/19 Unknown Rx Gabapentin 100 mg PO BID #60 capsule 07/13/19 09/13/19 Unknown Rx Insulin Glargine [Lantus VIAL] 15 units SUB-Q QHS 30 Days units 07/13/19 09/13/19 Unknown Rx Lispro Insulin [HumaLOG] See Protocol SUB-Q ACHS 30 Days 07/13/19 09/13/19 Unknown Rx units Metoclopramide [Reglan TAB] 5 mg PO ACHS 30 Days tablet 07/13/19 09/13/19 Unknown Rx Metoprolol [Lopressor TAB] 100 mg PO BID #60 tablet 07/13/19 09/13/19 Unknown Rx NIFEdipine XL [Procardia Xl] 60 mg PO QDAY #30 tablet 07/13/19 09/13/19 Unknown Rx Polyethylene Glycol 3350 [Miralax 17 gm PO QDAY 30 Days powd.pack 07/13/19 09/13/19 Unknown Rx 3350] Torsemide [Demadex] 60 mg PO DAILY 30 Days tablet 07/13/19 09/13/19 Unknown Rx Zolpidem [Ambien] 5 mg PO QHS PRN #15 tablet 07/13/19 09/13/19 Unknown Rx cloNIDine [Catapres] 0.1 mg PO Q12H PRN #60 tablet 07/13/19 09/13/19 Unknown Rx hydrALAZINE [Apresoline TAB] 100 mg PO Q8HR #90 tab 07/13/19 09/13/19 Unknown Rx oxyCODONE [roxiCODONE] 5 mg PO Q4H PRN #20 tablet 07/13/19 09/13/19 Unknown Rx Active Medications: Generic Name Dose Route Start Last Admin Trade Name Freq PRN Reason Stop Dose Admin Acetaminophen 650 mg 09/13/19 05:02 09/16/19 04:29 Tylenol PO 650 mg Q4H PRN Administration Pain MILD(1-3)/Fever >100.5/CASTILLO Albumin Human 25 gm 09/13/19 13:06 Alburx 25% (Albumin) IV FRANCOIS PRN Hypotension Ascorbic Acid 500 mg 09/16/19 22:00 09/17/19 09:57 Vitamin C PO 500 mg BID FATMATA Administration Clindamycin HCl 600 mg 09/16/19 14:00 09/17/19 07:55 Cleocin PO 600 mg TID FATMATA Administration Clonidine HCl 0.1 mg 09/16/19 12:40 Catapres PO Q12H PRN SBP > 160 Dextrose 50 ml 09/13/19 06:10 D50w (25gm) Syringe IV Q30MIN PRN Hypoglycemia Protocol Epoetin Jacoby 10,000 unit 09/13/19 13:06 09/15/19 12:55 Procrit SUB-Q 10,000 unit FRANCOIS PRN Administration hemodialysis Ferrous Sulfate 325 mg 09/16/19 22:00 09/17/19 09:55 Feosol PO 325 mg BID FATMATA Administration Folic Acid 1 mg 09/17/19 10:00 09/17/19 09:57 Folvite PO 1 mg QDAY FATMATA Administration Gabapentin 100 mg 09/16/19 22:00 09/17/19 09:55 Gabapentin PO 100 mg BID FATMATA Administration Heparin Sodium (Porcine) 5,000 unit 09/13/19 22:00 09/17/19 09:57 Heparin SUB-Q 5,000 unit Q12HR FATMATA Administration Hydralazine HCl 100 mg 09/16/19 14:00 09/17/19 07:54 Apresoline PO 100 mg Q8HR FATMATA Administration Sodium Chloride 100 mls @ 999 mls/hr 09/13/19 13:06 Nacl 0.9% IV FRANCOIS PRN Hypotension Insulin Glargine 8 units 09/16/19 22:00 09/16/19 22:19 Lantus SUB-Q 8 units QHS FATMATA Administration Insulin Human Regular 0 units 09/13/19 07:30 09/17/19 09:50 Humulin R SUB-Q Not Given [facility] Protocol Lorazepam 0.5 mg 09/16/19 13:00 09/17/19 07:54 Ativan PO 0.5 mg Q8H FATMATA Administration Magnesium Hydroxide 30 ml 09/13/19 05:02 Milk Of Magnesia PO Q4H PRN Constipation Metoclopramide HCl 10 mg 09/14/19 16:30 09/17/19 07:54 Reglan IV 10 mg ACHS FATMATA Administration Metoprolol Tartrate 100 mg 09/16/19 22:00 09/17/19 09:55 Metoprolol PO 100 mg BID FATMATA Administration Nifedipine 60 mg 09/16/19 13:00 09/17/19 09:55 Procardia Xl PO 60 mg QDAY FATMATA Administration Ondansetron HCl 4 mg 09/13/19 05:02 09/16/19 04:29 Zofran IV 4 mg Q8H PRN Administration Nausea And Vomiting Pantoprazole Sodium 40 mg 09/16/19 13:00 09/17/19 09:51 Protonix IV 40 mg QDAY FATMATA Administration Polyethylene Glycol 17 gm 09/17/19 10:00 09/17/19 10:04 Miralax 3350 PO Not Given QDAY FATMATA Sodium Chloride 10 ml 09/13/19 10:00 09/17/19 10:05 Sodium Chloride Flush Syringe 10 Ml IV 10 ml BID FATMATA Administration Sodium Chloride 10 ml 09/13/19 05:02 09/16/19 04:31 Sodium Chloride Flush Syringe 10 Ml IV 10 ml PRN PRN Administration LINE FLUSH Torsemide 60 mg 09/17/19 10:00 09/17/19 09:51 Demadex PO 60 mg QDAY FATMATA Administration Zolpidem Tartrate 5 mg 09/16/19 12:40 09/16/19 22:19 Ambien PO 5 mg QHS PRN Administration Sleep
--- NOTE | 2019-09-17 13:57 | Gastroenterology Consultation ---
<PATTI MA - Last Filed: 09/17/19 14:28> History of Present Illness - Reason for Consult Consult date: 09/17/19 persistant nausea Requesting physician: MAGALI WEST - History of Present Illness Patient is a 54 y/o female with multiple medical conditions to include HTN, DM, HLD, chronic non-healing right heel ulcer, ESRD on HD, chronic anemia, and ascites (likely related to ESRD) requiring intermittent paracentesis (cytology negative for malignancy 12/2018) who presented with c/o abdominal pain and N/V to which GI has been consulted. Patient is previously known to our service from consult 12/2018 for acute pancreatitis 2/ SOD and underwent ERCP with sphincterotomy at that time complicated with post-shincterotomy bleed which resolved with conservative management. Upon this admission, abd CT showed atherosclerotic calcifications throughout abdomen/pelvis, moderate to large ascites, and gallstones. She underwent paracentesis 09/14/19 with 1900cc fluid removed and symptoms now improved. This morning patient was resting in bed w/o acute distress but noted to be somnolent. Denies current abd pain or N/V. Tolerated diet this am w/o difficulty. Denies fever, CP, SOB, jaundice, signs of bleeding or LGI symptoms. 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, left arm AV fistula plac ement) Family history: diabetes, hypertension (Sister has hypertension) Medications and Allergies Allergies Allergy/AdvReac Type Severity Reaction Status Date / Time amlodipine Allergy Itching Verified 04/20/19 11:49 losartan Allergy Itching Verified 04/20/19 11:49 sulfamethoxazole Allergy Rash Verified 04/20/19 11:49 [From Bactrim] trimethoprim [From Bactrim] Allergy Rash Verified 04/20/19 11:49 morphine AdvReac Vomiting Verified 04/20/19 11:49 Home Medications Medication Instructions Recorded Confirmed Last Taken Type Ascorbic Acid [Vitamin C] 500 mg PO BID #14 tablet 07/13/19 09/13/19 Unknown Rx Epoetin Jacoby 10,000 Unit [Procrit] 5,000 unit IV FRANCOIS PRN vial 07/13/19 09/13/19 Unknown Rx Ferrous Sulfate [Feosol 325 MG tab] 325 mg PO BID #14 tablet 07/13/19 09/13/19 Unknown Rx Folic Acid [Folvite] 1 mg PO QDAY #7 tablet 07/13/19 09/13/19 Unknown Rx Gabapentin 100 mg PO BID #60 capsule 07/13/19 09/13/19 Unknown Rx Insulin Glargine [Lantus VIAL] 15 units SUB-Q QHS 30 Days units 07/13/19 09/13/19 Unknown Rx Lispro Insulin [HumaLOG] See Protocol SUB-Q ACHS 30 Days 07/13/19 09/13/19 Unknown Rx units Metoclopramide [Reglan TAB] 5 mg PO ACHS 30 Days tablet 07/13/19 09/13/19 Unknown Rx Metoprolol [Lopressor TAB] 100 mg PO BID #60 tablet 07/13/19 09/13/19 Unknown Rx NIFEdipine XL [Procardia Xl] 60 mg PO QDAY #30 tablet 07/13/19 09/13/19 Unknown Rx Polyethylene Glycol 3350 [Miralax 17 gm PO QDAY 30 Days powd.pack 07/13/19 09/13/19 Unknown Rx 3350] Torsemide [Demadex] 60 mg PO DAILY 30 Days tablet 07/13/19 09/13/19 Unknown Rx Zolpidem [Ambien] 5 mg PO QHS PRN #15 tablet 07/13/19 09/13/19 Unknown Rx cloNIDine [Catapres] 0.1 mg PO Q12H PRN #60 tablet 07/13/19 09/13/19 Unknown Rx hydrALAZINE [Apresoline TAB] 100 mg PO Q8HR #90 tab 07/13/19 09/13/19 Unknown Rx oxyCODONE [roxiCODONE] 5 mg PO Q4H PRN #20 tablet 07/13/19 09/13/19 Unknown Rx Active Meds: Active Medications Acetaminophen (Tylenol) 650 mg PO Q4H PRN PRN Reason: Pain MILD(1-3)/Fever >100.5/CASTILLO Last Admin: 09/16/19 04:29 Dose: 650 mg Documented by: Albumin Human (Alburx 25% (Albumin)) 25 gm IV FRANCOIS PRN PRN Reason: Hypotension Ascorbic Acid (Vitamin C) 500 mg PO BID FATMATA Last Admin: 09/17/19 09:57 Dose: 500 mg Documented by: Clindamycin HCl (Cleocin) 600 mg PO TID [facility] Last Admin: 09/17/19 07:55 Dose: 600 mg Documented by: Clonidine HCl (Catapres) 0.1 mg PO Q12H PRN PRN Reason: SBP > 160 Dextrose (D50w (25gm) Syringe) 50 ml IV Q30MIN PRN; Protocol PRN Reason: Hypoglycemia Epoetin Jacoby (Procrit) 10,000 unit SUB-Q FRANCOIS PRN PRN Reason: hemodialysis Last Admin: 09/15/19 12:55 Dose: 10,000 unit Documented by: Ferrous Sulfate (Feosol) 325 mg PO BID [facility] Last Admin: 09/17/19 09:55 Dose: 325 mg Documented by: Folic Acid (Folvite) 1 mg PO QDAY [facility] Last Admin: 09/17/19 09:57 Dose: 1 mg Documented by: Gabapentin (Gabapentin) 100 mg PO BID [facility] Last Admin: 09/17/19 09:55 Dose: 100 mg Documented by: Heparin Sodium (Porcine) (Heparin) 5,000 unit SUB-Q Q12HR [facility] Last Admin: 09/17/19 09:57 Dose: 5,000 unit Documented by: Hydralazine HCl (Apresoline) 100 mg PO Q8HR [facility] Last Admin: 09/17/19 07:54 Dose: 100 mg Documented by: Sodium Chloride (Nacl 0.9%) 100 mls @ 999 mls/hr IV FRANCOIS PRN PRN Reason: Hypotension Insulin Glargine (Lantus) 8 units SUB-Q QHS [facility] Last Admin: 09/16/19 22:19 Dose: 8 units Documented by: Insulin Human Regular (Humulin R) 0 units SUB-Q ACHS [facility]; Protocol Last Admin: 09/17/19 09:50 Dose: Not Given Documented by: Lorazepam (Ativan) 0.5 mg PO Q8H [facility] Last Admin: 09/17/19 07:54 Dose: 0.5 mg Documented by: Magnesium Hydroxide (Milk Of Magnesia) 30 ml PO Q4H PRN PRN Reason: Constipation Metoclopramide HCl (Reglan) 10 mg IV ACHS [facility] Last Admin: 09/17/19 07:54 Dose: 10 mg Documented by: Metoprolol Tartrate (Metoprolol) 100 mg PO BID [facility] Last Admin: 09/17/19 09:55 Dose: 100 mg Documented by: Nifedipine (Procardia Xl) 60 mg PO QDAY [facility] Last Admin: 09/17/19 09:55 Dose: 60 mg Documented by: Ondansetron HCl (Zofran) 4 mg IV Q8H PRN PRN Reason: Nausea And Vomiting Last Admin: 09/16/19 04:29 Dose: 4 mg Documented by: Pantoprazole Sodium (Protonix) 40 mg IV QDAY [facility] Last Admin: 09/17/19 09:51 Dose: 40 mg Documented by: Polyethylene Glycol (Miralax 3350) 17 gm PO QDAY [facility] Last Admin: 09/17/19 10:04 Dose: Not Given Documented by: Sodium Chloride (Sodium Chloride Flush Syringe 10 Ml) 10 ml IV BID [facility] Last Admin: 09/17/19 10:05 Dose: 10 ml Documented by: Sodium Chloride (Sodium Chloride Flush Syringe 10 Ml) 10 ml IV PRN PRN PRN Reason: LINE FLUSH Last Admin: 09/16/19 04:31 Dose: 10 ml Documented by: Torsemide (Demadex) 60 mg PO QDAY [facility] Last Admin: 09/17/19 09:51 Dose: 60 mg Documented by: Zolpidem Tartrate (Ambien) 5 mg PO QHS PRN PRN Reason: Sleep Last Admin: 09/16/19 22:19 Dose: 5 mg Documented by: medications reviewed/updated as required Review of Systems - Review of Systems All systems: negative Gastrointestinal: abdominal pain, nausea, vomiting Exam - Constitutional Vital Signs: Temp Pulse Resp BP Pulse Ox 97.5 F L 80 18 103/50 98 09/17/19 08:07 09/17/19 09:55 09/17/19 08:07 09/17/19 08:07 09/17/19 03:54 General appearance: no acute distress, other (somnolent) - EENT ENT: hearing intact - Respiratory Respiratory effort: normal - Cardiovascular Rhythm: regular - Gastrointestinal General gastrointestinal: Present: soft, non-tender, non-distended, normal bowel sounds - Integumentary Integumentary: Present: warm, dry - Neurologic Neurological: alert and oriented x3 - Labs CBC & Chem 7: 09/17/19 06:56 09/17/19 06:56 Lab Results: Laboratory Results - last 24 hr 09/16/19 09/16/19 09/17/19 16:01 20:50 06:56 WBC 20.9 H RBC 3.64 L Hgb 8.2 L Hct 25.3 L MCV 70 L MCH 23 L MCHC 32 RDW 19.2 H Plt Count 402 Add Manual Diff Complete Total Counted 100 Seg Neuts % (Manual) 84.0 H Band Neutrophils % 0 Lymphocytes % (Manual) 11.0 L Reactive Lymphs % (Man) 0 Monocytes % (Manual) 5.0 Eosinophils % (Manual) 0 Basophils % (Manual) 0 Metamyelocytes % 0 Myelocytes % 0 Promyelocytes % 0 Blast Cells % 0 Nucleated RBC % Not Reportable Seg Neutrophils # Man 17.6 H Band Neutrophils # 0.0 Lymphocytes # (Manual) 2.3 Abs React Lymphs (Man) 0.0 Monocytes # (Manual) 1.0 H Eosinophils # (Manual) 0.0 Basophils # (Manual) 0.0 Metamyelocytes # 0.0 Myelocytes # 0.0 Promyelocytes # 0.0 Blast Cells # 0.0 WBC Morphology Not Reportable Hypersegmented Neuts Not Reportable Hyposegmented Neuts Not Reportable Hypogranular Neuts Not Reportable Smudge Cells Not Reportable Toxic Granulation Not Reportable Toxic Vacuolation Not Reportable Dohle Bodies Not Reportable Pelger-Huet Anomaly Not Reportable Mary Lou Rods Not Reportable Platelet Estimate Consistent w auto Clumped Platelets Not Reportable Plt Clumps, EDTA Not Reportable Large Platelets Few Giant Platelets Not Reportable Platelet Satelliting Not Reportable Plt Morphology Comment Not Reportable RBC Morphology Not Reportable Dimorphic RBCs Not Reportable Polychromasia Not Reportable Hypochromasia 2+ Poikilocytosis 2+ Anisocytosis 2+ Microcytosis 1+ Macrocytosis Not Reportable Spherocytes Not Reportable Pappenheimer Bodies Not Reportable Sickle Cells Not Reportable Target Cells 2+ Tear Drop Cells Rare Ovalocytes Few Helmet Cells Not Reportable Nelson-Whitwell Bodies Not Reportable [place] Rings Not Reportable [place] Cells Not Reportable Bite Cells Not Reportable Crenated Cell Not Reportable Elliptocytes Few Acanthocytes (Spur) Not Reportable Rouleaux Not Reportable Hemoglobin C Crystals Not Reportable Schistocytes Not Reportable Malaria parasites Not Reportable Sigifredo Bodies Not Reportable Hem Pathologist Commnt No Sodium Potassium Chloride Carbon Dioxide Anion Gap BUN Creatinine Estimated GFR BUN/Creatinine Ratio Glucose POC Glucose 265 H 275 H Calcium 09/17/19 09/17/19 09/17/19 06:56 08:15 12:27 WBC RBC Hgb Hct MCV MCH MCHC RDW Plt Count Add Manual Diff Total Counted Seg Neuts % (Manual) Band Neutrophils % Lymphocytes % (Manual) Reactive Lymphs % (Man) Monocytes % (Manual) Eosinophils % (Manual) Basophils % (Manual) Metamyelocytes % Myelocytes % Promyelocytes % Blast Cells % Nucleated RBC % Seg Neutrophils # Man Band Neutrophils # Lymphocytes # (Manual) Abs React Lymphs (Man) Monocytes # (Manual) Eosinophils # (Manual) Basophils # (Manual) Metamyelocytes # Myelocytes # Promyelocytes # Blast Cells # WBC Morphology Hypersegmented Neuts Hyposegmented Neuts Hypogranular Neuts Smudge Cells Toxic Granulation Toxic Vacuolation Dohle Bodies Pelger-Huet Anomaly Mary Lou Rods Platelet Estimate Clumped Platelets Plt Clumps, EDTA Large Platelets Giant Platelets Platelet Satelliting Plt Morphology Comment RBC Morphology Dimorphic RBCs Polychromasia Hypochromasia Poikilocytosis Anisocytosis Microcytosis Macrocytosis Spherocytes Pappenheimer Bodies Sickle Cells Target Cells Tear Drop Cells Ovalocytes Helmet Cells Nelson-Whitwell Bodies [place] Rings [place] Cells Bite Cells Crenated Cell Elliptocytes Acanthocytes (Spur) Rouleaux Hemoglobin C Crystals Schistocytes Malaria parasites Sigifredo Bodies Hem Pathologist Commnt Sodium 135 L Potassium 3.8 Chloride 90.3 L Carbon Dioxide 22 Anion Gap 27 BUN 34 H Creatinine 5.9 H D Estimated GFR 9 BUN/Creatinine Ratio 6 Glucose 83 POC Glucose 104 162 H Calcium 9.1 Assessment and Plan 1.N/V 2.abdominal pain 3.ascites -afebrile -WBC 20-trending up -H/H 8.2/25.3-no active signs of bleeding -plt 402, INR 1.22 -acute hepatitis panel negative -LFTs-T.ayana 0.90, AST 44, ALT 84, alk phos 82 on admission -abd CT showed atherosclerotic calcifications throughout abdomen/pelvis, moderate to large ascites, and gallstones -ascites (likely 2/2 ESRD)- LVP PRN-s/p [id number] with 1900cc fluid removed (fluid for cytology negative malignancy 12/2018) -etiology-likely multifactorial (related to ascites vs other) -clinically, patient reports symptoms now improved with no current abd pain or N/V. Tolerating diet. -no plan for EGD at this time, will consider based on progress -continue PPI and antiemetics -avoid narcotics for this may exacerbate symptoms -optimize glycemic control -continue supportive care -patient to follow up in clinic upon discharge if symptoms for further workup 3.LBBB/elevated troponin Status post stress test - which is normal Echo reviewed - EF 45-50%, pseudonormalization, CE elevation pattern appears c/w NSTEMI type II. No plans for additional cardiac w/u at this time 4.DM 5.diabetic ulcer of heel-chronic/non-healing 6.ESRD on HD 7.SIRS -likely from chronic diabetic wound -on abx 8.HTN <MELISA BROWN - Last Filed: 09/17/19 19:57> Medications and Allergies Active Meds: Active Medications Acetaminophen (Tylenol) 650 mg PO Q4H PRN PRN Reason: Pain MILD(1-3)/Fever >100.5/CASTILLO Last Admin: 09/16/19 04:29 Dose: 650 mg Documented by: Albumin Human (Alburx 25% (Albumin)) 25 gm IV FRANCOIS PRN PRN Reason: Hypotension Ascorbic Acid (Vitamin C) 500 mg PO BID [facility] Last Admin: 09/17/19 09:57 Dose: 500 mg Documented by: Clonidine HCl (Catapres) 0.1 mg PO Q12H PRN PRN Reason: SBP > 160 Dextrose (D50w (25gm) Syringe) 50 ml IV Q30MIN PRN; Protocol PRN Reason: Hypoglycemia Epoetin Jacoby (Procrit) 10,000 unit SUB-Q FRANCOIS PRN PRN Reason: hemodialysis Last Admin: 09/15/19 12:55 Dose: 10,000 unit Documented by: Ferrous Sulfate (Feosol) 325 mg PO BID [facility] Last Admin: 09/17/19 09:55 Dose: 325 mg Documented by: Folic Acid (Folvite) 1 mg PO QDAY [facility] Last Admin: 09/17/19 09:57 Dose: 1 mg Documented by: Gabapentin (Gabapentin) 100 mg PO BID [facility] Last Admin: 09/17/19 09:55 Dose: 100 mg Documented by: Heparin Sodium (Porcine) (Heparin) 5,000 unit SUB-Q Q12HR [facility] Last Admin: 09/17/19 09:57 Dose: 5,000 unit Documented by: Hydralazine HCl (Apresoline) 100 mg PO Q8HR [facility] Last Admin: 09/17/19 07:54 Dose: 100 mg Documented by: Sodium Chloride (Nacl 0.9%) 100 mls @ 999 mls/hr IV FRANCOIS PRN PRN Reason: Hypotension Cefepime HCl (Cefepime/Ns 1 Gm/100 Ml) 1 gm in 100 mls @ 200 mls/hr IV Q24HR [facility]; Protocol Insulin Glargine (Lantus) 8 units SUB-Q QHS [facility] Last Admin: 09/16/19 22:19 Dose: 8 units Documented by: Insulin Human Regular (Humulin R) 0 units SUB-Q [facility]; Protocol Last Admin: 09/17/19 09:50 Dose: Not Given Documented by: Lorazepam (Ativan) 0.5 mg PO Q8H [facility] Last Admin: 09/17/19 07:54 Dose: 0.5 mg Documented by: Magnesium Hydroxide (Milk Of Magnesia) 30 ml PO Q4H PRN PRN Reason: Constipation Metoclopramide HCl (Reglan) 10 mg IV [facility] Last Admin: 09/17/19 07:54 Dose: 10 mg Documented by: Metoprolol Tartrate (Metoprolol) 100 mg PO BID [facility] Last Admin: 09/17/19 09:55 Dose: 100 mg Documented by: Nifedipine (Procardia Xl) 60 mg PO QDAY [facility] Last Admin: 09/17/19 09:55 Dose: 60 mg Documented by: Ondansetron HCl (Zofran) 4 mg IV Q8H PRN PRN Reason: Nausea And Vomiting Last Admin: 09/16/19 04:29 Dose: 4 mg Documented by: Pantoprazole Sodium (Protonix) 40 mg IV QDAY [facility] Last Admin: 09/17/19 09:51 Dose: 40 mg Documented by: Polyethylene Glycol (Miralax 3350) 17 gm PO QDAY [facility] Last Admin: 09/17/19 10:04 Dose: Not Given Documented by: Sodium Chloride (Sodium Chloride Flush Syringe 10 Ml) 10 ml IV BID [facility] Last Admin: 09/17/19 10:05 Dose: 10 ml Documented by: Sodium Chloride (Sodium Chloride Flush Syringe 10 Ml) 10 ml IV PRN PRN PRN Reason: LINE FLUSH Last Admin: 09/16/19 04:31 Dose: 10 ml Documented by: Torsemide (Demadex) 60 mg PO QDAY [facility] Last Admin: 09/17/19 09:51 Dose: 60 mg Documented by: Zolpidem Tartrate (Ambien) 5 mg PO QHS PRN PRN Reason: Sleep Last Admin: 09/16/19 22:19 Dose: 5 mg Documented by: Exam - Constitutional Vital Signs: Temp Pulse Resp BP Pulse Ox 97.5 F L 80 18 103/50 98 09/17/19 08:07 09/17/19 09:55 09/17/19 08:07 09/17/19 08:07 09/17/19 03:54 - Labs CBC & Chem 7: 09/17/19 06:56 09/17/19 06:56 Lab Results: Laboratory Results - last 24 hr 09/16/19 09/17/19 09/17/19 20:50 06:56 06:56 WBC 20.9 H RBC 3.64 L Hgb 8.2 L Hct 25.3 L MCV 70 L MCH 23 L MCHC 32 RDW 19.2 H Plt Count 402 Add Manual Diff Complete Total Counted 100 Seg Neuts % (Manual) 84.0 H Band Neutrophils % 0 Lymphocytes % (Manual) 11.0 L Reactive Lymphs % (Man) 0 Monocytes % (Manual) 5.0 Eosinophils % (Manual) 0 Basophils % (Manual) 0 Metamyelocytes % 0 Myelocytes % 0 Promyelocytes % 0 Blast Cells % 0 Nucleated RBC % Not Reportable Seg Neutrophils # Man 17.6 H Band Neutrophils # 0.0 Lymphocytes # (Manual) 2.3 Abs React Lymphs (Man) 0.0 Monocytes # (Manual) 1.0 H Eosinophils # (Manual) 0.0 Basophils # (Manual) 0.0 Metamyelocytes # 0.0 Myelocytes # 0.0 Promyelocytes # 0.0 Blast Cells # 0.0 WBC Morphology Not Reportable Hypersegmented Neuts Not Reportable Hyposegmented Neuts Not Reportable Hypogranular Neuts Not Reportable Smudge Cells Not Reportable Toxic Granulation Not Reportable Toxic Vacuolation Not Reportable Dohle Bodies Not Reportable Pelger-Huet Anomaly Not Reportable Mary Lou Rods Not Reportable Platelet Estimate Consistent w auto Clumped Platelets Not Reportable Plt Clumps, EDTA Not Reportable Large Platelets Few Giant Platelets Not Reportable Platelet Satelliting Not Reportable Plt Morphology Comment Not Reportable RBC Morphology Not Reportable Dimorphic RBCs Not Reportable Polychromasia Not Reportable Hypochromasia 2+ Poikilocytosis 2+ Anisocytosis 2+ Microcytosis 1+ Macrocytosis Not Reportable Spherocytes Not Reportable Pappenheimer Bodies Not Reportable Sickle Cells Not Reportable Target Cells 2+ Tear Drop Cells Rare Ovalocytes Few Helmet Cells Not Reportable Nelson-Whitwell Bodies Not Reportable [place] Rings Not Reportable [place] Cells Not Reportable Bite Cells Not Reportable Crenated Cell Not Reportable Elliptocytes Few Acanthocytes (Spur) Not Reportable Rouleaux Not Reportable Hemoglobin C Crystals Not Reportable Schistocytes Not Reportable Malaria parasites Not Reportable Sigifredo Bodies Not Reportable Hem Pathologist Commnt No Sodium 135 L Potassium 3.8 Chloride 90.3 L Carbon Dioxide 22 Anion Gap 27 BUN 34 H Creatinine 5.9 H D Estimated GFR 9 BUN/Creatinine Ratio 6 Glucose 83 POC Glucose 275 H Calcium 9.1 09/17/19 09/17/19 09/17/19 08:15 12:27 16:07 WBC RBC Hgb Hct MCV MCH MCHC RDW Plt Count Add Manual Diff Total Counted Seg Neuts % (Manual) Band Neutrophils % Lymphocytes % (Manual) Reactive Lymphs % (Man) Monocytes % (Manual) Eosinophils % (Manual) Basophils % (Manual) Metamyelocytes % Myelocytes % Promyelocytes % Blast Cells % Nucleated RBC % Seg Neutrophils # Man Band Neutrophils # Lymphocytes # (Manual) Abs React Lymphs (Man) Monocytes # (Manual) Eosinophils # (Manual) Basophils # (Manual) Metamyelocytes # Myelocytes # Promyelocytes # Blast Cells # WBC Morphology Hypersegmented Neuts Hyposegmented Neuts Hypogranular Neuts Smudge Cells Toxic Granulation Toxic Vacuolation Dohle Bodies Pelger-Huet Anomaly Mary Lou Rods Platelet Estimate Clumped Platelets Plt Clumps, EDTA Large Platelets Giant Platelets Platelet Satelliting Plt Morphology Comment RBC Morphology Dimorphic RBCs Polychromasia Hypochromasia Poikilocytosis Anisocytosis Microcytosis Macrocytosis Spherocytes Pappenheimer Bodies Sickle Cells Target Cells Tear Drop Cells Ovalocytes Helmet Cells Nelson-Whitwell Bodies [place] Rings [place] Cells Bite Cells Crenated Cell Elliptocytes Acanthocytes (Spur) Rouleaux Hemoglobin C Crystals Schistocytes Malaria parasites Sigifredo Bodies Hem Pathologist Commnt Sodium Potassium Chloride Carbon Dioxide Anion Gap BUN Creatinine Estimated GFR BUN/Creatinine Ratio Glucose POC Glucose 104 162 H 148 H Calcium Assessment and Plan Patient seen and examined; agree with note above. tolerating breakfast this morning. conservative management from gi stand point as above.
--- NOTE | 2019-09-17 15:41 | Progress Note ---
Assessment and Plan / Nausea & vomiting and abdominal pain Probably secondary to gastroparesis cont on IV Zofran as needed, IV Reglan scheduled will also cont on ativan, on PPI Consulted GI as symptom persisted -appreciated recommendation /Ascites with volume overload -s/p paracentesis drained 1900 cc fluid / Left bundle branch block (LBBB) with elevated troponin Patient denies any chest pain at this time. EKG findings and elevated troponin discussed with the on-call lpta by the ER physician. Status post stress test - which is normal Echo reviewed - EF 45-50%, pseudonormalization, CE elevation pattern appears c/w NSTEMI type II. No plans for additional cardiac w/u at this time. / Diabetic ulcer of heel, chronic nonhealing s/p bedside debridement by Dr. Rowell Patient was recommended amputation in the past but she refused consulted to wound care team for evaluation and management wound cx gowing gm -ve rods, ID consulted for abx recommendation / Diabetes type II on insulin We will monitor Accu-Cheks, continue routine home medications. / End-stage renal disease on hemodialysis Patient is on dialysis Tuesday, and Saturdays. consulted nephrology for dialysis during this admission /SIRS vs sepsis likely from chronic diabetic wound, will cont abx, follow wound cx / HTN (hypertension), uncontrolled Will continue routine home medications and monitor vital signs closely. adjust medications as needed / DVT prophylaxis Patient placed on subcu to heparin / Full code status Disposition: Home with home health when medically stable Brief History: 54-year-old -[place] female with known history of end-stage renal disease on dialysis Tuesdays and Saturdays, history of diabetes mellitus with a chronic right heel ulcer and history of hypertension presenting to the emergency room complaining of nausea and vomiting with associated abdominal pain. had normal stress test, s/p debridement at bedside. place on PPI, clear liquid diet, as needed reglan. cont current Mx, follow 2d echo, monitor clinically, follow ID recommendation Hospitalist Physical exam: GENERAL: Elderly -[place] female lying on bed appeared to be chronically ill HEENT: Normocephalic. Atraumatic. No conjunctival congestion or icterus. Patient has moist mucous membranes. NECK: Supple. Trachea midline. CHEST/LUNGS: Clear to auscultated bilaterally, breathing nonlabored. No wheezes crackles or rhonchi. HEART/CARDIOVASCULAR: Regular in rate and rhythm. S1 and S2 positive. ABDOMEN: Abdomen is soft, nontender, distended. Patient has normal bowel sounds . SKIN: There is no rash. Warm and dry. NEURO: No focal motor deficit. Follows command. MUSCULOSKELETAL: No joint effusion or tenderness. EXTRIMITY: Right foot with wound dressing, left AKA PSYCH: Cooperative. Subjective Date of service: 09/17/19 Principal diagnosis: abd pain, n/v, LBBB Interval history: Patient seen and examined. Medical records and medication list reviewed. No acute event overnight noted by the RN. Patient continue to have a nausea and very poor oral intake Discussed plan of care at bedside with patient. PT eval pending wound Cx growing gm -ve rods Objective - Constitutional Vitals: Vital Signs - 12hr 09/17/19 09/17/19 09/17/19 03:54 08:07 09:55 Temperature 98.4 F 97.5 F L Pulse Rate 74 80 Respiratory 18 18 Rate Blood Pressure 136/67 103/50 O2 Sat by Pulse 98 Oximetry - Labs CBC & Chem 7: 09/17/19 06:56 09/17/19 06:56 Labs: Abnormal lab results 09/16/19 09/16/19 09/17/19 Range/Units 16:01 20:50 06:56 WBC 20.9 H (4.5-11.0) K/mm3 RBC 3.64 L (3.65-5.03) M/mm3 Hgb 8.2 L (10.1-14.3) gm/dl Hct 25.3 L (30.3-42.9) % MCV 70 L (79-97) fl MCH 23 L (28-32) pg RDW 19.2 H (13.2-15.2) % Seg Neuts % (Manual) 84.0 H (40.0-70.0) % Lymphocytes % (Manual) 11.0 L (13.4-35.0) % Seg Neutrophils # Man 17.6 H (1.8-7.7) K/mm3 Monocytes # (Manual) 1.0 H (0.0-0.8) K/mm3 Sodium (137-145) mmol/L Chloride (98-107) mmol/L BUN (7-17) mg/dL Creatinine (0.7-1.2) mg/dL POC Glucose 265 H 275 H (70-105) 09/17/19 09/17/19 Range/Units 06:56 12:27 WBC (4.5-11.0) K/mm3 RBC (3.65-5.03) M/mm3 Hgb (10.1-14.3) gm/dl Hct (30.3-42.9) % MCV (79-97) fl MCH (28-32) pg RDW (13.2-15.2) % Seg Neuts % (Manual) (40.0-70.0) % Lymphocytes % (Manual) (13.4-35.0) % Seg Neutrophils # Man (1.8-7.7) K/mm3 Monocytes # (Manual) (0.0-0.8) K/mm3 Sodium 135 L (137-145) mmol/L Chloride 90.3 L (98-107) mmol/L BUN 34 H (7-17) mg/dL Creatinine 5.9 H D (0.7-1.2) mg/dL POC Glucose 162 H (70-105)
--- NOTE | 2019-09-17 18:23 | Consultation ---
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 Patient has a chronic right heel necrotic ulcer follows with Wound care Dr Crawford for this. On admission, temp 99.2, BP 207/95, WBC 18K. She underwent debridement of necrotic SQ, muscle and fascia from right foot and heel on 09/13/2019. She underwent paracentesis 09/14/19 with 1900cc fluid removed. Recent outpatient MRI right foot in July 2019 shows large heel ulcer with cellulitis/myositis but no osteomyelitis.Blood culture 09/16/2019 no growth so far. Wound culture 09/16/2019 +GNR. ID consulted for abx management. Of note, previous left foot wound grew MDR Enterobacter and E faecalis. Review of Systems: Bold if positive, otherwise negative General: fevers, chills, body aches HEENT: visual disturbance, diplopia, eye pain Respiratory: cough, sputum, hemoptysis, shortness of breath Cardiovascular: chest pain, syncope Gastrointestinal: nausea, vomiting, diarrhea, abdominal pain Genitourinary: dysuria, hematuria, flank pain Musculoskeletal: right heel non healing wound, neck pain, back pain, joint pain, edema Neurologic: headaches, seizures Hematologic: easy bruising or bleeding Endocrine: night sweats, acute weight loss Skin: rash, jaundice, redness Psychiatric: suicidal, homicidal ideation 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, left arm AV fistula placement) Family history: diabetes, hypertension (Sister has hypertension) Medications and Allergies Allergies Allergy/AdvReac Type Severity Reaction Status Date / Time amlodipine Allergy Itching Verified 04/20/19 11:49 losartan Allergy Itching Verified 04/20/19 11:49 sulfamethoxazole Allergy Rash Verified 04/20/19 11:49 [From Bactrim] trimethoprim [From Bactrim] Allergy Rash Verified 04/20/19 11:49 morphine AdvReac Vomiting Verified 04/20/19 11:49 Home Medications Medication Instructions Recorded Confirmed Last Taken Type Ascorbic Acid [Vitamin C] 500 mg PO BID #14 tablet 07/13/19 09/13/19 Unknown Rx Epoetin Jacoby 10,000 Unit [Procrit] 5,000 unit IV FRANCOIS PRN vial 07/13/19 09/13/19 Unknown Rx Ferrous Sulfate [Feosol 325 MG tab] 325 mg PO BID #14 tablet 07/13/19 09/13/19 Unknown Rx Folic Acid [Folvite] 1 mg PO QDAY #7 tablet 07/13/19 09/13/19 Unknown Rx Gabapentin 100 mg PO BID #60 capsule 07/13/19 09/13/19 Unknown Rx Insulin Glargine [Lantus VIAL] 15 units SUB-Q QHS 30 Days units 07/13/19 09/13/19 Unknown Rx Lispro Insulin [HumaLOG] See Protocol SUB-Q ACHS 30 Days 07/13/19 09/13/19 Unknown Rx units Metoclopramide [Reglan TAB] 5 mg PO ACHS 30 Days tablet 07/13/19 09/13/19 Unknown Rx Metoprolol [Lopressor TAB] 100 mg PO BID #60 tablet 07/13/19 09/13/19 Unknown Rx NIFEdipine XL [Procardia Xl] 60 mg PO QDAY #30 tablet 07/13/19 09/13/19 Unknown Rx Polyethylene Glycol 3350 [Miralax 17 gm PO QDAY 30 Days powd.pack 07/13/19 09/13/19 Unknown Rx 3350] Torsemide [Demadex] 60 mg PO DAILY 30 Days tablet 07/13/19 09/13/19 Unknown Rx Zolpidem [Ambien] 5 mg PO QHS PRN #15 tablet 07/13/19 09/13/19 Unknown Rx cloNIDine [Catapres] 0.1 mg PO Q12H PRN #60 tablet 07/13/19 09/13/19 Unknown Rx hydrALAZINE [Apresoline TAB] 100 mg PO Q8HR #90 tab 07/13/19 09/13/19 Unknown Rx oxyCODONE [roxiCODONE] 5 mg PO Q4H PRN #20 tablet 07/13/19 09/13/19 Unknown Rx Active Meds: Active Medications Acetaminophen (Tylenol) 650 mg PO Q4H PRN PRN Reason: Pain MILD(1-3)/Fever >100.5/CASTILLO Last Admin: 09/16/19 04:29 Dose: 650 mg Documented by: Albumin Human (Alburx 25% (Albumin)) 25 gm IV FRANCOIS PRN PRN Reason: Hypotension Ascorbic Acid (Vitamin C) 500 mg PO BID [facility] Last Admin: 09/17/19 09:57 Dose: 500 mg Documented by: Clindamycin HCl (Cleocin) 600 mg PO TID [facility] Last Admin: 09/17/19 07:55 Dose: 600 mg Documented by: Clonidine HCl (Catapres) 0.1 mg PO Q12H PRN PRN Reason: SBP > 160 Dextrose (D50w (25gm) Syringe) 50 ml IV Q30MIN PRN; Protocol PRN Reason: Hypoglycemia Epoetin Jacoby (Procrit) 10,000 unit SUB-Q FRANCOIS PRN PRN Reason: hemodialysis Last Admin: 09/15/19 12:55 Dose: 10,000 unit Documented by: Ferrous Sulfate (Feosol) 325 mg PO BID [facility] Last Admin: 09/17/19 09:55 Dose: 325 mg Documented by: Folic Acid (Folvite) 1 mg PO QDAY [facility] Last Admin: 09/17/19 09:57 Dose: 1 mg Documented by: Gabapentin (Gabapentin) 100 mg PO BID [facility] Last Admin: 09/17/19 09:55 Dose: 100 mg Documented by: Heparin Sodium (Porcine) (Heparin) 5,000 unit SUB-Q Q12HR [facility] Last Admin: 09/17/19 09:57 Dose: 5,000 unit Documented by: Hydralazine HCl (Apresoline) 100 mg PO Q8HR [facility] Last Admin: 09/17/19 07:54 Dose: 100 mg Documented by: Sodium Chloride (Nacl 0.9%) 100 mls @ 999 mls/hr IV FRANCOIS PRN PRN Reason: Hypotension Insulin Glargine (Lantus) 8 units SUB-Q QHS [facility] Last Admin: 09/16/19 22:19 Dose: 8 units Documented by: Insulin Human Regular (Humulin R) 0 units SUB-Q ACHS [facility]; Protocol Last Admin: 09/17/19 09:50 Dose: Not Given Documented by: Lorazepam (Ativan) 0.5 mg PO Q8H [facility] Last Admin: 09/17/19 07:54 Dose: 0.5 mg Documented by: Magnesium Hydroxide (Milk Of Magnesia) 30 ml PO Q4H PRN PRN Reason: Constipation Metoclopramide HCl (Reglan) 10 mg IV ACHS [facility] Last Admin: 09/17/19 07:54 Dose: 10 mg Documented by: Metoprolol Tartrate (Metoprolol) 100 mg PO BID [facility] Last Admin: 09/17/19 09:55 Dose: 100 mg Documented by: Nifedipine (Procardia Xl) 60 mg PO QDAY [facility] Last Admin: 09/17/19 09:55 Dose: 60 mg Documented by: Ondansetron HCl (Zofran) 4 mg IV Q8H PRN PRN Reason: Nausea And Vomiting Last Admin: 09/16/19 04:29 Dose: 4 mg Documented by: Pantoprazole Sodium (Protonix) 40 mg IV QDAY [facility] Last Admin: 09/17/19 09:51 Dose: 40 mg Documented by: Polyethylene Glycol (Miralax 3350) 17 gm PO QDAY [facility] Last Admin: 09/17/19 10:04 Dose: Not Given Documented by: Sodium Chloride (Sodium Chloride Flush Syringe 10 Ml) 10 ml IV BID [facility] Last Admin: 09/17/19 10:05 Dose: 10 ml Documented by: Sodium Chloride (Sodium Chloride Flush Syringe 10 Ml) 10 ml IV PRN PRN PRN Reason: LINE FLUSH Last Admin: 09/16/19 04:31 Dose: 10 ml Documented by: Torsemide (Demadex) 60 mg PO QDAY [facility] Last Admin: 09/17/19 09:51 Dose: 60 mg Documented by: Zolpidem Tartrate (Ambien) 5 mg PO QHS PRN PRN Reason: Sleep Last Admin: 09/16/19 22:19 Dose: 5 mg Documented by: Physical Examination - Physical Exam Narrative exam: Constitutional: Alert, cooperative. No acute distress Head, Ears, Nose: Normocephalic, atraumatic. External ears, nose normal Eyes: Conjunctivae/corneas clear. No icterus. No ptosis. Neck: Supple, no meningeal signs Oral: dentition fair, no thrush Cardiovascular: S1, S2 normal. Respiratory: Good air entry, clear to auscultation bilaterally GI: Soft, non-tender; uterus Musculoskeletal: right heel large wound with surgical dressings Skin: No rash or abscess Hem/Lymphatic: No palpable cervical or supraclavicular nodes. No lymphangitis Psych: Mood ok. Affect normal Neurological: Awake, alert, oriented. No gross abnormality - Constitutional Vitals: Vital Signs Temp Pulse Resp BP Pulse Ox 97.5 F L 80 18 103/50 98 09/17/19 08:07 09/17/19 09:55 09/17/19 08:07 09/17/19 08:07 09/17/19 03:54 Temperature -Last 24 Hours Temperature 97.5 F Temperature 98.4 F Temperature 98.9 F Results - Labs CBC & Chem 7: 09/17/19 06:56 09/17/19 06:56 Labs: Abnormal lab results 09/16/19 09/17/19 09/17/19 Range/Units 20:50 06:56 06:56 WBC 20.9 H (4.5-11.0) K/mm3 RBC 3.64 L (3.65-5.03) M/mm3 Hgb 8.2 L (10.1-14.3) gm/dl Hct 25.3 L (30.3-42.9) % MCV 70 L (79-97) fl MCH 23 L (28-32) pg RDW 19.2 H (13.2-15.2) % Seg Neuts % (Manual) 84.0 H (40.0-70.0) % Lymphocytes % (Manual) 11.0 L (13.4-35.0) % Seg Neutrophils # Man 17.6 H (1.8-7.7) K/mm3 Monocytes # (Manual) 1.0 H (0.0-0.8) K/mm3 Sodium 135 L (137-145) mmol/L Chloride 90.3 L (98-107) mmol/L BUN 34 H (7-17) mg/dL Creatinine 5.9 H D (0.7-1.2) mg/dL POC Glucose 275 H (70-105) 09/17/19 09/17/19 Range/Units 12:27 16:07 WBC (4.5-11.0) K/mm3 RBC (3.65-5.03) M/mm3 Hgb (10.1-14.3) gm/dl Hct (30.3-42.9) % MCV (79-97) fl MCH (28-32) pg RDW (13.2-15.2) % Seg Neuts % (Manual) (40.0-70.0) % Lymphocytes % (Manual) (13.4-35.0) % Seg Neutrophils # Man (1.8-7.7) K/mm3 Monocytes # (Manual) (0.0-0.8) K/mm3 Sodium (137-145) mmol/L Chloride (98-107) mmol/L BUN (7-17) mg/dL Creatinine (0.7-1.2) mg/dL POC Glucose 162 H 148 H (70-105) Assessment and Plan Cultures: Blood culture 09/16/2019 no growth so far. Wound culture 09/16/2019 +GNR. Previous left foot wound grew MDR Enterobacter and E faecalis Assessment: 54 y/o female with history of ESRD on HD M/W/F, HTN, Insulin-dependent diabetes, ascitis requiring paracentesis in the past from ESRD, previous pancreatitis, known to us from previous hospitalization in March 2019 and May 2019 with left foot diabetic heel necrotic ulcer s/p BKA on 06/27/2019 readmitted on 09/12/2019 due to abdominal pain and N/V found to have a worsening right heel wound: 1) Right heel non healing necrotic wound: Patient has a chronic right heel necrotic ulcer follows with Wound care Dr Crawford for this. She underwent debridement of necrotic SQ, muscle and fascia from right foot and heel on 09/13/2019. Recent outpatient MRI right foot in July 2019 shows large heel ulcer with cellulitis/myositis but no osteomyelitis. . Wound culture 09/16/2019 +GNR. Of note, previous left foot wound grew MDR Enterobacter and E faecalis. 2) Leukocytosis: likely due to #1 Recs: start cefepime renally adjusted stop clindamycin arterial dopplers contact for MDR Enterobacter risk for amputation Will follow. Thanks for consultation April Segovia MD Infectious Diseases [employer] [facility] [id number] [phone] O [phone]
[2019-09-17] MEDS: CEFEPIME/NS 1 GM/100 ML 1 GM/100 ML BAG IV SCH (22:33)
[2019-09-17] MEDS: ACETAMINOPHEN 325 MG TAB PO PRN (22:34)
[2019-09-17] MEDS: ZOLPIDEM 5 MG TAB PO PRN (22:34)
[2019-09-17] MEDS: INSULIN GLARGINE 100 UNITS/ML SUB-Q SCH (22:35)
[2019-09-18 03:53] LABS: Hematocrit 24.1 % (30.3-42.9); Hemoglobin 7.6 gm/dl (10.1-14.3); Mean Corpuscular HGB Conc 32 % (30-34); Mean Corpuscular Volume 70 fl (79-97); Platelet Count 359 K/mm3 (140-440); Red Blood Count 3.44 M/mm3 (3.65-5.03); Red Cell Distribution Width 19.4 % (13.2-15.2)
[2019-09-18] MEDS: hydrALAZINE 100 MG TAB PO SCH ×3 (07:08→22:21)
[2019-09-18] MEDS: METOCLOPRAMIDE 10 MG/2 ML INJ IV SCH ×3 (07:09→22:21)
[2019-09-18] MEDS: LORazepam 1 MG TAB PO SCH ×3 (07:11→22:25)
[2019-09-18] MEDS: INSULIN REGULAR, HUMAN 100 UNITS/1 ML SUB-Q SCH ×3 (08:55→22:21)
[2019-09-18] MEDS: NIFEdipine XL 60 MG TAB PO SCH (10:00)
--- NOTE | 2019-09-18 11:14 | Gastroenterology Progress Note ---
<PATTI MA - Last Filed: 09/18/19 11:14> Assessment and Plan 1.N/V 2.abdominal pain 3.ascites -afebrile -WBC 12.3-trending down -H/H 7.6/24.1-no active signs of bleeding -plt WNL, INR 1.22 -acute hepatitis panel negative -LFTs-T.ayana 0.90, AST 44, ALT 84, alk phos 82 on admission -abd CT showed atherosclerotic calcifications throughout abdomen/pelvis, moderate to large ascites, and gallstones -ascites (likely 2/2 ESRD)- LVP PRN-s/p [id number] with 1900cc fluid removed (fluid for cytology negative malignancy 12/2018) -etiology-likely multifactorial (related to ascites vs other) -clinically, patient reports symptoms now resolved with no current abd pain or N/V. Tolerating diet. -no plan for EGD at this time -continue PPI and antiemetics -avoid narcotics for this may exacerbate symptoms -optimize glycemic control -continue conservative management as above and supportive care -patient to follow up in clinic upon discharge if symptoms persist for further workup -will sign off, please call if needed 3.LBBB/elevated troponin Status post stress test - which is normal Echo reviewed - EF 45-50%, pseudonormalization, CE elevation pattern appears c/w NSTEMI type II. No plans for additional cardiac w/u at this time 4.DM 5.diabetic ulcer of heel-chronic/non-healing 6.ESRD on HD 7.SIRS -likely from chronic diabetic wound -on abx; ID following 8.HTN Subjective Date of service: 09/18/19 Principal diagnosis: N/V Interval history: No acute distress. Reports N/V and abd pain now resolved. Tolerating diet. Objective - Constitutional Vitals: Temp Pulse Resp BP Pulse Ox 98.4 F 55 L 16 124/62 100 09/18/19 08:23 09/18/19 08:23 09/18/19 08:23 09/18/19 08:23 09/18/19 08:23 General appearance: no acute distress - EENT Eyes: PERRL, EOM intact ENT: hearing intact - Respiratory Respiratory effort: normal - Cardiovascular Rhythm: regular - Gastrointestinal General gastrointestinal: Present: soft, non-tender, non-distended, normal bowel sounds - Neurologic Neurological: alert and oriented x3 - Labs CBC & Chem 7: 09/18/19 02:03 09/17/19 06:56 Labs: Laboratory Results - last 24 hr 09/17/19 09/17/19 09/17/19 12:27 16:07 21:54 WBC RBC Hgb Hct MCV MCH MCHC RDW Plt Count POC Glucose 162 H 148 H 304 H 09/18/19 09/18/19 02:03 08:30 WBC 12.3 H RBC 3.44 L Hgb 7.6 L Hct 24.1 L MCV 70 L MCH 22 L MCHC 32 RDW 19.4 H Plt Count 359 POC Glucose 86 <MELISA BROWN - Last Filed: 09/18/19 19:21> Assessment and Plan Patient seen and examined; agree with note above. tolerating po; likely multi- factorial cause of symptoms from other acute and chronic medical conditions. Objective - Constitutional Vitals: Temp Pulse Resp BP Pulse Ox 98.0 F 62 18 127/60 100 09/18/19 16:31 09/18/19 16:31 09/18/19 16:31 09/18/19 16:31 09/18/19 16:31 - Labs CBC & Chem 7: 09/18/19 02:03 09/17/19 06:56 Labs: Laboratory Results - last 24 hr 09/17/19 09/18/19 09/18/19 21:54 02:03 08:30 WBC 12.3 H RBC 3.44 L Hgb 7.6 L Hct 24.1 L MCV 70 L MCH 22 L MCHC 32 RDW 19.4 H Plt Count 359 POC Glucose 304 H 86 09/18/19 16:39 WBC RBC Hgb Hct MCV MCH MCHC RDW Plt Count POC Glucose 235 H
[2019-09-18] MEDS: HEPARIN 5,000 UNIT/1 ML VIAL SUB-Q SCH ×2 (12:00→22:22)
[2019-09-18] MEDS: EPOETIN ALFA 10,000 UNIT/1 ML INJ SUB-Q PRN (12:15)
[2019-09-18] MEDS ORDERED: SODIUM CHLORIDE*PRIMING MACHINE ONLY FOR DIALYSIS MC ONE (12:29)
--- NOTE | 2019-09-18 13:51 | Progress Note ---
Assessment and Plan Assessment and plan: Nausea & vomiting and abdominal pain Probably secondary to gastroparesis cont on IV Zofran as needed, IV Reglan scheduled will also cont on ativan, on PPI Consulted GI as symptom persisted -appreciated recommendation Ascites with volume overload -s/p paracentesis drained 1900 cc fluid Left bundle branch block (LBBB) with elevated troponin Patient denies any chest pain at this time. EKG findings and elevated troponin discussed with the on-call brazing machine setter by the ER physician. Status post stress test - which is normal Echo reviewed - EF 45-50%, pseudonormalization, CE elevation pattern appears c/w NSTEMI type II. No plans for additional cardiac w/u at this time. Diabetic ulcer of heel, chronic nonhealing s/p bedside debridement by Dr. Rowell Patient was recommended amputation in the past but she refused consulted to wound care team for evaluation and management wound cx gowing gm -ve rods, ID consulted for abx recommendation, following On Cefepime, vancomycin added Diabetes type II on insulin We will monitor Accu-Cheks, continue routine home medications. End-stage renal disease on hemodialysis Patient is on dialysis Tuesday, and Saturdays. consulted nephrology for dialysis during this admission SIRS vs sepsis likely from chronic diabetic wound, will cont abx, follow wound cx HTN (hypertension), uncontrolled Will continue routine home medications and monitor vital signs closely. adjust medications as needed DVT prophylaxis Patient placed on subcu to heparin Full code status Disposition: Home with home health when medically stable History Interval history: Right heel wound Nausea, vomiting Hospitalist Physical - Physical exam Narrative exam: GENERAL: Not in acute distress, appeared to be chronically ill HEENT: Normocephalic. Atraumatic. Patient has moist mucous membranes. NECK: Supple. Trachea midline. CHEST/LUNGS: Clear to auscultated bilaterally, No wheezes crackles or rhonchi. HEART/CARDIOVASCULAR: RRR. S1 and S2 reg, no murmurs rubs or gallop. ABDOMEN: Abdomen is soft, nontender, nondistended. Patient has normal bowel sounds. SKIN: There is no rash. Warm and dry. NEURO: AAO x 3, No focal motor deficit. Follows command. EXTRIMITY: Right foot with wound dressing, left AKA PSYCH: Cooperative. - Constitutional Vitals: Temp Pulse Resp BP Pulse Ox 98.0 F 64 18 155/74 100 09/18/19 12:45 09/18/19 12:45 09/18/19 12:45 09/18/19 12:45 09/18/19 08:23 General appearance: Present: no acute distress, well-nourished Results - Labs CBC & Chem 7: 09/18/19 02:03 09/17/19 06:56 Labs: Laboratory Last Values WBC 12.3 K/mm3 (4.5-11.0) H 09/18/19 02:03 RBC 3.44 M/mm3 (3.65-5.03) L 09/18/19 02:03 Hgb 7.6 gm/dl (10.1-14.3) L 09/18/19 02:03 Hct 24.1 % (30.3-42.9) L 09/18/19 02:03 MCV 70 fl (79-97) L 09/18/19 02:03 MCH 22 pg (28-32) L 09/18/19 02:03 MCHC 32 % (30-34) 09/18/19 02:03 RDW 19.4 % (13.2-15.2) H 09/18/19 02:03 Plt Count 359 K/mm3 (140-440) 09/18/19 02:03 Lymph # Press Box Custodian 09/14/19 02:47 Add Manual Diff Complete 09/17/19 06:56 Total Counted 100 09/17/19 06:56 Seg Neuts % (Manual) 84.0 % (40.0-70.0) H 09/17/19 06:56 Band Neutrophils % 0 % 09/17/19 06:56 Lymphocytes % (Manual) 11.0 % (13.4-35.0) L 09/17/19 06:56 Reactive Lymphs % (Man) 0 % 09/17/19 06:56 Monocytes % (Manual) 5.0 % (0.0-7.3) 09/17/19 06:56 Eosinophils % (Manual) 0 % (0.0-4.3) 09/17/19 06:56 Basophils % (Manual) 0 % (0.0-1.8) 09/17/19 06:56 Metamyelocytes % 0 % 09/17/19 06:56 Myelocytes % 0 % 09/17/19 06:56 Promyelocytes % 0 % 09/17/19 06:56 Blast Cells % 0 % 09/17/19 06:56 Nucleated RBC % Not Reportable 09/17/19 06:56 Seg Neutrophils # Man 17.6 K/mm3 (1.8-7.7) H 09/17/19 06:56 Band Neutrophils # 0.0 K/mm3 09/17/19 06:56 Lymphocytes # (Manual) 2.3 K/mm3 (1.2-5.4) 09/17/19 06:56 Abs React Lymphs (Man) 0.0 K/mm3 09/17/19 06:56 Monocytes # (Manual) 1.0 K/mm3 (0.0-0.8) H 09/17/19 06:56 Eosinophils # (Manual) 0.0 K/mm3 (0.0-0.4) 09/17/19 06:56 Basophils # (Manual) 0.0 K/mm3 (0.0-0.1) 09/17/19 06:56 Metamyelocytes # 0.0 K/mm3 09/17/19 06:56 Myelocytes # 0.0 K/mm3 09/17/19 06:56 Promyelocytes # 0.0 K/mm3 09/17/19 06:56 Blast Cells # 0.0 K/mm3 09/17/19 06:56 WBC Morphology Not Reportable 09/17/19 06:56 Hypersegmented Neuts Not Reportable 09/17/19 06:56 Hyposegmented Neuts Not Reportable 09/17/19 06:56 Hypogranular Neuts Not Reportable 09/17/19 06:56 Smudge Cells Not Reportable 09/17/19 06:56 Toxic Granulation Not Reportable 09/17/19 06:56 Toxic Vacuolation Not Reportable 09/17/19 06:56 Dohle Bodies Not Reportable 09/17/19 06:56 Pelger-Huet Anomaly Not Reportable 09/17/19 06:56 Mary Lou Rods Not Reportable 09/17/19 06:56 Platelet Estimate Consistent w auto 09/17/19 06:56 Clumped Platelets Not Reportable 09/17/19 06:56 Plt Clumps, EDTA Not Reportable 09/17/19 06:56 Large Platelets Few 09/17/19 06:56 Giant Platelets Not Reportable 09/17/19 06:56 Platelet Satelliting Not Reportable 09/17/19 06:56 Plt Morphology Comment Not Reportable 09/17/19 06:56 RBC Morphology Not Reportable 09/17/19 06:56 Dimorphic RBCs Not Reportable 09/17/19 06:56 Polychromasia Not Reportable 09/17/19 06:56 Hypochromasia 2+ 09/17/19 06:56 Poikilocytosis 2+ 09/17/19 06:56 Anisocytosis 2+ 09/17/19 06:56 Microcytosis 1+ 09/17/19 06:56 Macrocytosis Not Reportable 09/17/19 06:56 Spherocytes Not Reportable 09/17/19 06:56 Pappenheimer Bodies Not Reportable 09/17/19 06:56 Sickle Cells Not Reportable 09/17/19 06:56 Target Cells 2+ 09/17/19 06:56 Tear Drop Cells Rare 09/17/19 06:56 Ovalocytes Few 09/17/19 06:56 Helmet Cells Not Reportable 09/17/19 06:56 [place] Bodies Not Reportable 09/17/19 06:56 [place] Rings Not Reportable 09/17/19 06:56 [place] Cells Not Reportable 09/17/19 06:56 Bite Cells Not Reportable 09/17/19 06:56 Crenated Cell Not Reportable 09/17/19 06:56 Elliptocytes Few 09/17/19 06:56 Acanthocytes (Spur) Not Reportable 09/17/19 06:56 Rouleaux Not Reportable 09/17/19 06:56 Hemoglobin C Crystals Not Reportable 09/17/19 06:56 Schistocytes Not Reportable 09/17/19 06:56 Malaria parasites Not Reportable 09/17/19 06:56 Sigifredo Bodies Not Reportable 09/17/19 06:56 Hem Pathologist Commnt No 09/17/19 06:56 PT 15.3 Sec. (12.2-14.9) H 09/14/19 02:47 INR 1.22 (0.87-1.13) H 09/14/19 02:47 APTT 42.9 Sec. (24.2-36.6) H 09/14/19 02:47 Sodium 135 mmol/L (137-145) L 09/17/19 06:56 Potassium 3.8 mmol/L (3.6-5.0) 09/17/19 06:56 Chloride 90.3 mmol/L (98-107) L 09/17/19 06:56 Carbon Dioxide 22 mmol/L (22-30) 09/17/19 06:56 Anion Gap 27 mmol/L 09/17/19 06:56 BUN 34 mg/dL (7-17) H 09/17/19 06:56 Creatinine 5.9 mg/dL (0.7-1.2) H D 09/17/19 06:56 Estimated GFR 9 ml/min 09/17/19 06:56 BUN/Creatinine Ratio 6 % 09/17/19 06:56 Glucose 83 mg/dL (65-100) 09/17/19 06:56 POC Glucose 86 (70-105) 09/18/19 08:30 Calcium 9.1 mg/dL (8.4-10.2) 09/17/19 06:56 Total Bilirubin 1.60 mg/dL (0.1-1.2) H 09/13/19 00:33 AST 17 units/L (5-40) 09/13/19 00:33 ALT 11 units/L (7-56) 09/13/19 00:33 Alkaline Phosphatase 713 units/L (35-129) H 09/13/19 00:33 Troponin T 0.193 ng/mL (0.00-0.029) H* 09/13/19 05:51 Total Protein 9.1 g/dL (6.3-8.2) H 09/13/19 00:33 Albumin 3.3 g/dL (3.9-5) L 09/13/19 00:33 Albumin/Globulin Ratio 0.6 % 09/13/19 00:33 Triglycerides 227 mg/dL (2-149) H 09/13/19 02:01 Cholesterol 191 mg/dL (50-199) 09/13/19 02:01 LDL Cholesterol Direct 86 mg/dL (50-130) 09/13/19 02:01 HDL Cholesterol 28 mg/dL (40-59) L 09/13/19 02:01 Cholesterol/HDL Ratio 6.82 % 09/13/19 02:01 Lipase 14 units/L (13-60) 09/13/19 00:33 Hepatitis A IgM Ab Non-reactive (NonReactive) 09/14/19 19:21 Hep Bs Antigen Non-reactive (Negative) 09/14/19 19:21 Hep B Core IgM Ab Non-reactive (NonReactive) 09/14/19 19:21 Hepatitis C Antibody Non-reactive (NonReactive) 09/14/19 19:21 Active Medications - Current Medications Current Medications: Generic Name Dose Route Start Last Admin Trade Name Freq PRN Reason Stop Dose Admin Acetaminophen 650 mg 09/13/19 05:02 09/17/19 22:34 Tylenol PO 650 mg Q4H PRN Administration Pain MILD(1-3)/Fever >100.5/CASTILLO Albumin Human 25 gm 09/13/19 13:06 Alburx 25% (Albumin) IV FRANCOIS PRN Hypotension Ascorbic Acid 500 mg 09/16/19 22:00 09/17/19 22:34 Vitamin C PO 500 mg BID FATMATA Administration Clonidine HCl 0.1 mg 09/16/19 12:40 Catapres PO Q12H PRN SBP > 160 Dextrose 50 ml 09/13/19 06:10 D50w (25gm) Syringe IV Q30MIN PRN Hypoglycemia Protocol Epoetin Jacoby 10,000 unit 09/13/19 13:06 09/18/19 12:15 Procrit SUB-Q 10,000 unit FRANCOIS PRN Administration hemodialysis Ferrous Sulfate 325 mg 09/16/19 22:00 09/17/19 22:34 Feosol PO 325 mg BID FATMATA Administration Folic Acid 1 mg 09/17/19 10:00 09/17/19 09:57 Folvite PO 1 mg QDAY FATMATA Administration Gabapentin 100 mg 09/16/19 22:00 09/17/19 22:34 Gabapentin PO 100 mg BID FATMATA Administration Heparin Sodium (Porcine) 5,000 unit 09/13/19 22:00 09/17/19 22:37 Heparin SUB-Q 5,000 unit Q12HR FATMATA Administration Hydralazine HCl 100 mg 09/16/19 14:00 09/18/19 07:08 Apresoline PO 100 mg Q8HR FATMATA Administration Sodium Chloride 100 mls @ 999 mls/hr 09/13/19 13:06 Nacl 0.9% IV FRANCOIS PRN Hypotension Cefepime HCl 1 gm in 100 mls @ 200 mls/hr 09/17/19 20:00 09/17/19 22:33 Cefepime/Ns 1 Gm/100 Ml IV 200 mls/hr Q24HR FATMATA Administration Protocol Insulin Glargine 8 units 09/16/19 22:00 09/17/19 22:35 Lantus SUB-Q 8 units QHS FATMATA Administration Insulin Human Regular 0 units 09/13/19 07:30 09/18/19 08:55 Humulin R SUB-Q Not Given ACHS [facility] Protocol Lorazepam 0.5 mg 09/16/19 13:00 09/18/19 07:11 Ativan PO 0.5 mg Q8H FATMATA Administration Magnesium Hydroxide 30 ml 09/13/19 05:02 Milk Of Magnesia PO Q4H PRN Constipation Metoclopramide HCl 10 mg 09/14/19 16:30 09/18/19 07:09 Reglan IV 10 mg ACHS FATMATA Administration Metoprolol Tartrate 100 mg 09/16/19 22:00 09/17/19 22:34 Metoprolol PO 100 mg BID FATMATA Administration Nifedipine 60 mg 09/16/19 13:00 09/17/19 09:55 Procardia Xl PO 60 mg QDAY FATMATA Administration Ondansetron HCl 4 mg 09/13/19 05:02 09/16/19 04:29 Zofran IV 4 mg Q8H PRN Administration Nausea And Vomiting Pantoprazole Sodium 40 mg 09/16/19 13:00 09/17/19 09:51 Protonix IV 09/18/19 23:59 40 mg QDAY FATMATA Administration Pantoprazole Sodium 40 mg 09/19/19 10:00 Protonix PO DAILY FATMATA Polyethylene Glycol 17 gm 09/17/19 10:00 09/17/19 10:04 Miralax 3350 PO Not Given QDAY FATMATA Sodium Chloride 10 ml 09/13/19 10:00 09/17/19 22:35 Sodium Chloride Flush Syringe 10 Ml IV 10 ml BID FATMATA Administration Sodium Chloride 10 ml 09/13/19 05:02 09/16/19 04:31 Sodium Chloride Flush Syringe 10 Ml IV 10 ml PRN PRN Administration LINE FLUSH Torsemide 60 mg 09/17/19 10:00 09/17/19 09:51 Demadex PO 60 mg QDAY FATMATA Administration Zolpidem Tartrate 5 mg 09/16/19 12:40 09/17/19 22:34 Ambien PO 5 mg QHS PRN Administration Sleep Nutrition/Malnutrition Assess - Dietary Evaluation Nutrition/Malnutrition Findings: Nutrition Notes Start: 09/14/19 11:18 Freq: Status: Active Protocol: Document 09/17/19 13:36 OH (Rec: 09/17/19 13:39 OH [id number]) Nutrition Notes Initial or Follow up Reassessment Current Diagnosis Decubitus(Pressure Ulcer), Diabetes,Hypertension Current Diet Renal Diet Height 5 ft 7 in Weight 63.5 kg [place] Body Weight (kg) 61.36 BMI 21.9 Weight change and time frame Pt. had paracenthesis performed 09/14/19. 1.9L of fluid was removed. Subjective/Other Information f/u: Pt. lying in bed pretending to be asleep. She answered one question stating she didn't care for the Nepro and would like for it to be d/ c'd. Unable to complete additional questions w/pt. Current % PO Negligible Minimum of two criteria Yes Body Fat Depletion Mild depletion (non-severe) Muscle Mass Mild Depletion (non-severe) Reduced Hot Stick Worker Strength Measurably Reduced (severe) #1 Nutrition Diagnosis Malnutrition Etiology secondary to ESRD As Evidenced by Signs and Symptoms mild depletion of fat and muscle mass with bilat reduced health information director strength Is patient on ventilator? No Additional Notes Protein needs: 82-102 g/day (1 .2-1.5 g/kg/day) Fluid needs: 4401-6967 ml Nutrition Intervention Change Diet Order: Continue current diet Add Supplement/Snack (indicate name/kcal d/c nepro per pt request /protein ) Learning Readiness Poor Anticipated Discharge Needs: Renal Diet Follow-Up By: 09/20/19 Additional Comments Follow up for PO intake and ONS tolerance Renal/Consistent CHO diet
--- NOTE | 2019-09-18 14:02 | Progress Note ---
Assessment and Plan Cultures: Blood culture 09/16/2019 no growth so far. Wound culture 09/16/2019 Proteus and Staph aureus Previous left foot wound grew MDR Enterobacter and E faecalis Assessment: 54 y/o female with history of ESRD on HD M/W/F, HTN, Insulin-dependent diabetes, ascitis requiring paracentesis in the past from ESRD, previous pancreatitis, known to us from previous hospitalization in March 2019 and May 2019 with left foot diabetic heel necrotic ulcer s/p BKA on 06/27/2019 readmitted on 09/12/2019 due to abdominal pain and N/V found to have a worsening right heel wound: 1) Right heel non healing necrotic wound: Patient has a chronic right heel necrotic ulcer follows with Wound care Dr Crawford for this. She underwent debridement of necrotic SQ, muscle and fascia from right foot and heel on 09/13/2019. Recent outpatient MRI right foot in July 2019 shows large heel ulcer with cellulitis/myositis but no osteomyelitis. Wound culture 09/16/2019 with Proteus and Staph aureus. Of note, previous left foot wound grew MDR Enterobacter and E faecalis. 2) Leukocytosis: likely due to #1 Recs: continue cefepime renally adjusted add vancomycin renally adjusted till MRSA is r/o f/u arterial dopplers contact for MDR Enterobacter risk for amputation Will follow. April Segovia MD Infectious Diseases Master Merchandiser [facility] ([facility]) M [phone] O [phone] Subjective Date of service: 09/18/19 Principal diagnosis: N/V Interval history: Feels ok, no complaints. No fever. Objective - Exam Narrative Exam: Constitutional: Alert, cooperative. No acute distress Head, Ears, Nose: Normocephalic, atraumatic. External ears, nose normal Eyes: Conjunctivae/corneas clear. No icterus. No ptosis. Neck: Supple, no meningeal signs Oral: dentition fair, no thrush Cardiovascular: S1, S2 normal. Respiratory: Good air entry, clear to auscultation bilaterally GI: Soft, non-tender; uterus Musculoskeletal: right heel large wound with surgical dressings Skin: No rash or abscess Hem/Lymphatic: No palpable cervical or supraclavicular nodes. No lymphangitis Psych: Mood ok. Affect normal Neurological: Awake, alert, oriented. No gross abnormality - Constitutional Vitals: Vital Signs Temp Pulse Resp BP Pulse Ox 98.0 F 64 18 155/74 100 09/18/19 12:45 09/18/19 12:45 09/18/19 12:45 09/18/19 12:45 09/18/19 08:23 Temperature -Last 24 Hours Temperature 98.0 F Temperature 97.8 F Temperature 98.4 F Temperature 98.0 F Temperature 98.4 F Temperature 98.8 F Temperature 98.2 F - Labs CBC & Chem 7: 09/18/19 02:03 09/17/19 06:56 Labs: Abnormal lab results 09/17/19 09/17/19 09/18/19 Range/Units 16:07 21:54 02:03 WBC 12.3 H (4.5-11.0) K/mm3 RBC 3.44 L (3.65-5.03) M/mm3 Hgb 7.6 L (10.1-14.3) gm/dl Hct 24.1 L (30.3-42.9) % MCV 70 L (79-97) fl MCH 22 L (28-32) pg RDW 19.4 H (13.2-15.2) % POC Glucose 148 H 304 H (70-105)
[2019-09-18] MEDS: TORSEMIDE 10 MG TAB PO SCH (14:24)
[2019-09-18] MEDS: ASCORBIC ACID 500 MG TAB PO SCH ×2 (14:26→22:20)
[2019-09-18] MEDS: METOPROLOL TARTRATE 100 MG TAB PO SCH ×2 (14:26→22:21)
[2019-09-18] MEDS: FERROUS SULFATE 325 MG TAB PO SCH ×2 (14:26→22:20)
[2019-09-18] MEDS: cloNIDine 0.1 MG TAB PO PRN (14:26)
[2019-09-18] MEDS: GABAPENTIN 100 MG CAP PO SCH ×2 (14:27→22:20)
[2019-09-18] MEDS: PANTOPRAZOLE 40 MG INJ IV SCH (14:28)
[2019-09-18] MEDS: FOLIC ACID 1 MG TAB PO SCH (14:33)
[2019-09-18] MEDS: POLYETHYLENE GLYCOL 3350 17 GM POWDER PO SCH (14:40)
[2019-09-18] MEDS ORDERED: VANCOMYCIN PHARMACY TO DOSE IV SCH (15:00)
[2019-09-18] MEDS ORDERED: VANCOMYCIN/NS 1 GM/250 ML 1 GM/250 ML BAG IV SCH (15:00)
[2019-09-18] MEDS: CEFEPIME/NS 1 GM/100 ML 1 GM/100 ML BAG IV SCH (15:50)
[2019-09-18] MEDS ORDERED: VANCOMYCIN 1,250 MG in SODIUM CHLORIDE 0.9% 250ML 250 ML IV ONE (16:00)
--- NOTE | 2019-09-18 16:32 | Vascular Lab Report ---
DUPLEX DOPPLER LOWER EXTREMITY ARTERIAL, RIGHT INDICATION: non healing right foot ulcer . TECHNIQUE: Arterial duplex examination of the right lower extremity performed using B-mode, color flow and spect ral Doppler assessment. FINDINGS: RIGHT: Common Femoral Artery: PSV 115 cm/sec. Triphasic waveform. Proximal SFA: PSV 116 cm/sec. Triphasic waveform. Mid SFA: PSV 141 cm/sec. Triphasic waveform. Distal SFA: PSV 129 cm/sec. Biphasic waveform. Popliteal artery: PSV 110 cm/sec. Biphasic waveform. Posterior tibial artery: PSV 68 cm/sec. Monophasic waveform. Dorsalis Pedis Artery: PSV 98 cm/sec. Monophasic waveform. IMPRESSION: 1. Multifocal atherosclerotic disease beginning in the region of the distal SFA and continuing throug hout the DPA. The most abnormal waveforms (monophasic) are in the AUTOMOTIVE TIRE WORKER and DPA signifying upstream carole noses. Ankle-Brachial Index (CHRISTEN): * Calcified arteries > 1.4 * Normal = 0.9-1.4 * Mild PAD = 0.7-0.89 * Moderate PAD = 0.51-0.69 * Severe PAD < 0.5 Doppler Waveform: * Triphasic is normal. * Biphasic is abnormal if clear transition from triphasic signal along vascular tree. * Monophasic is abnormal. Signer Name: Mychal Toth MD Signed: 09/18/2019 4:27 PM Workstation Name: [id number]
[2019-09-18] MEDS: INSULIN GLARGINE 100 UNITS/ML SUB-Q SCH (22:22)
[2019-09-18] MEDS: guaiFENesin ER 600 MG TAB PO SCH (22:39)
--- NOTE | 2019-09-18 22:42 | Progress Note ---
Assessment and Plan - Patient Problems (1) Diabetic ulcer of heel Current Visit: Yes Status: Chronic Qualifiers: Diabetes mellitus type: type 1 Laterality: left Non-pressure ulcer stage: unspecified non-pressure ulcer stage Qualified Code(s): E10.621 - Type 1 diabetes mellitus with foot ulcer; L97.429 - Non-pressure chronic ulcer of left heel and midfoot with unspecified severity Plan to address problem: Continue wound care. Needs pain control. (2) Anemia in chronic illness Current Visit: No Status: Chronic Plan to address problem: Erythropoietin on dialysis (3) End-stage renal disease on hemodialysis Current Visit: No Status: Chronic Plan to address problem: Hemodialysis on a Tuesday, and Tuesday schedule (4) Hypertensive chronic kidney disease with stage 5 chronic kidney disease or end stage renal disease Current Visit: No Status: Chronic Plan to address problem: Follow-up blood pressure on current medications (5) Type 2 diabetes mellitus with diabetic chronic kidney disease Current Visit: No Status: Chronic Qualifiers: Chronic kidney disease stage: on chronic dialysis Plan to address problem: Blood sugar management by primary attending Subjective Date of service: 09/18/19 Principal diagnosis: N/V Interval history: Patient seen lying in bed. She is awake today. Complains of pain in right foot. Not relieved with Tylenol or tramadol Objective - Exam Narrative Exam: Middle aged -Vincentian female lying in bed in no acute distress HEENT: NCAT, pink oral mucous membrane Neck: Supple, no venous distention CVS: S1S2 RRR with no murmur, rub or gallop Chest: Clear to auscultation Abdomen: Protuberant, soft, nontender, no organomegaly, bowel sounds are present Extremities: Dressing in right Foot clean and dry, pigmentary changes, left below knee amputation with healed stump clean and dry Neuro: Awake, alert no focal deficits - Vital Signs Vital signs: Vital Signs - 12hr 09/18/19 09/18/19 09/18/19 10:45 11:00 11:15 Temperature Pulse Rate 63 63 61 Respiratory Rate Blood Pressure 142/67 138/70 137/70 O2 Sat by Pulse Oximetry 09/18/19 09/18/19 09/18/19 11:30 11:45 12:00 Temperature Pulse Rate 64 64 64 Respiratory Rate Blood Pressure 128/66 122/61 136/69 O2 Sat by Pulse Oximetry 09/18/19 09/18/19 09/18/19 12:15 12:25 12:45 Temperature 98.0 F Pulse Rate 63 64 64 Respiratory 18 Rate Blood Pressure 145/70 151/76 155/74 O2 Sat by Pulse Oximetry 09/18/19 09/18/19 09/18/19 14:26 16:31 19:16 Temperature 98.0 F 98.7 F Pulse Rate 70 62 58 L Respiratory 18 16 Rate Blood Pressure 127/60 143/68 O2 Sat by Pulse 100 98 Oximetry 09/18/19 22:21 Temperature Pulse Rate Respiratory Rate Blood Pressure 143/68 O2 Sat by Pulse Oximetry - Lab 09/18/19 02:03 09/17/19 06:56 Most recent lab results Calcium 9.1 mg/dL (8.4-10.2) 09/17/19 06:56 Medications & Allergies - Medications Allergies/Adverse Reactions: Allergies amlodipine Allergy (Verified 04/20/19 11:49) Itching losartan Allergy (Verified 04/20/19 11:49) Itching sulfamethoxazole [From Bactrim] Allergy (Verified 04/20/19 11:49) Rash trimethoprim [From Bactrim] Allergy (Verified 04/20/19 11:49) Rash morphine Adverse Reaction (Verified 04/20/19 11:49) Vomiting Home Medications: Home Medications Medication Instructions Recorded Confirmed Last Taken Type Ascorbic Acid [Vitamin C] 500 mg PO BID #14 tablet 07/13/19 09/13/19 Unknown Rx Epoetin Jacoby 10,000 Unit [Procrit] 5,000 unit IV FRANCOIS PRN vial 07/13/19 09/13/19 Unknown Rx Ferrous Sulfate [Feosol 325 MG tab] 325 mg PO BID #14 tablet 07/13/19 09/13/19 Unknown Rx Folic Acid [Folvite] 1 mg PO QDAY #7 tablet 07/13/19 09/13/19 Unknown Rx Gabapentin 100 mg PO BID #60 capsule 07/13/19 09/13/19 Unknown Rx Insulin Glargine [Lantus VIAL] 15 units SUB-Q QHS 30 Days units 07/13/19 09/13/19 Unknown Rx Lispro Insulin [HumaLOG] See Protocol SUB-Q ACHS 30 Days 07/13/19 09/13/19 Unknown Rx units Metoclopramide [Reglan TAB] 5 mg PO ACHS 30 Days tablet 07/13/19 09/13/19 Unknown Rx Metoprolol [Lopressor TAB] 100 mg PO BID #60 tablet 07/13/19 09/13/19 Unknown Rx NIFEdipine XL [Procardia Xl] 60 mg PO QDAY #30 tablet 07/13/19 09/13/19 Unknown Rx Polyethylene Glycol 3350 [Miralax 17 gm PO QDAY 30 Days powd.pack 07/13/19 09/13/19 Unknown Rx 3350] Torsemide [Demadex] 60 mg PO DAILY 30 Days tablet 07/13/19 09/13/19 Unknown Rx Zolpidem [Ambien] 5 mg PO QHS PRN #15 tablet 07/13/19 09/13/19 Unknown Rx cloNIDine [Catapres] 0.1 mg PO Q12H PRN #60 tablet 07/13/19 09/13/19 Unknown Rx hydrALAZINE [Apresoline TAB] 100 mg PO Q8HR #90 tab 07/13/19 09/13/19 Unknown Rx oxyCODONE [roxiCODONE] 5 mg PO Q4H PRN #20 tablet 07/13/19 09/13/19 Unknown Rx Active Medications: Generic Name Dose Route Start Last Admin Trade Name Freq PRN Reason Stop Dose Admin Acetaminophen 650 mg 09/13/19 05:02 09/17/19 22:34 Tylenol PO 650 mg Q4H PRN Administration Pain MILD(1-3)/Fever >100.5/CASTILLO Albumin Human 25 gm 09/13/19 13:06 Alburx 25% (Albumin) IV FRANCOIS PRN Hypotension Ascorbic Acid 500 mg 09/16/19 22:00 09/18/19 22:20 Vitamin C PO 500 mg BID FATMATA Administration Clonidine HCl 0.1 mg 09/16/19 12:40 09/18/19 14:26 Catapres PO 0.1 mg Q12H PRN Administration SBP > 160 Dextrose 50 ml 09/13/19 06:10 D50w (25gm) Syringe IV Q30MIN PRN Hypoglycemia Protocol Epoetin Jacoby 10,000 unit 09/13/19 13:06 09/18/19 12:15 Procrit SUB-Q 10,000 unit FRANCOIS PRN Administration hemodialysis Ferrous Sulfate 325 mg 09/16/19 22:00 09/18/19 22:20 Feosol PO 325 mg BID FATMATA Administration Folic Acid 1 mg 09/17/19 10:00 09/18/19 14:33 Folvite PO 1 mg QDAY FATMATA Administration Gabapentin 100 mg 09/16/19 22:00 09/18/19 22:20 Gabapentin PO 100 mg BID FATMATA Administration Guaifenesin 600 mg 09/18/19 23:00 09/18/19 22:39 Mucinex Er PO 600 mg BID FATMATA Administration Heparin Sodium (Porcine) 5,000 unit 09/13/19 22:00 09/18/19 22:22 Heparin SUB-Q Not Given Q12HR FATMATA Hydralazine HCl 100 mg 09/16/19 14:00 09/18/19 22:21 Apresoline PO 100 mg Q8HR FATMATA Administration Sodium Chloride 100 mls @ 999 mls/hr 09/13/19 13:06 Nacl 0.9% IV FRANCOIS PRN Hypotension Cefepime HCl 1 gm in 100 mls @ 200 mls/hr 09/17/19 20:00 09/18/19 15:50 Cefepime/Ns 1 Gm/100 Ml IV 200 mls/hr Q24HR FATMATA Administration Protocol Insulin Glargine 8 units 09/16/19 22:00 09/18/19 22:22 Lantus SUB-Q 8 units QHS FATMATA Administration Insulin Human Regular 0 units 09/13/19 07:30 09/18/19 22:21 Humulin R SUB-Q 6 units ACHS FATMATA Administration Protocol Lorazepam 0.5 mg 09/16/19 13:00 09/18/19 22:25 Ativan PO 0.5 mg Q8H FATMATA Administration Magnesium Hydroxide 30 ml 09/13/19 05:02 Milk Of Magnesia PO Q4H PRN Constipation Metoclopramide HCl 10 mg 09/14/19 16:30 09/18/19 22:21 Reglan IV 10 mg ACHS FATMATA Administration Metoprolol Tartrate 100 mg 09/16/19 22:00 09/18/19 22:21 Metoprolol PO 100 mg BID FATMATA Administration Nifedipine 60 mg 09/16/19 13:00 09/18/19 10:00 Procardia Xl PO Not Given QDAY [facility] Ondansetron HCl 4 mg 09/13/19 05:02 09/16/19 04:29 Zofran IV 4 mg Q8H PRN Administration Nausea And Vomiting Pantoprazole Sodium 40 mg 09/16/19 13:00 09/18/19 14:28 Protonix IV 09/18/19 23:59 40 mg QDAY FATMATA Administration Pantoprazole Sodium 40 mg 09/19/19 10:00 Protonix PO DAILY FATMATA Polyethylene Glycol 17 gm 09/17/19 10:00 09/18/19 14:40 Miralax 3350 PO Not Given QDAY FATMATA Sodium Chloride 10 ml 09/13/19 10:00 09/18/19 22:23 Sodium Chloride Flush Syringe 10 Ml IV 10 ml BID FATMATA Administration Sodium Chloride 10 ml 09/13/19 05:02 09/16/19 04:31 Sodium Chloride Flush Syringe 10 Ml IV 10 ml PRN PRN Administration LINE FLUSH Torsemide 60 mg 09/17/19 10:00 09/18/19 14:24 Demadex PO 60 mg QDAY FATMATA Administration Zolpidem Tartrate 5 mg 09/16/19 12:40 09/17/19 22:34 Ambien PO 5 mg QHS PRN Administration Sleep
[2019-09-18] MEDS: ZOLPIDEM 5 MG TAB PO PRN (23:22)
[2019-09-19] MEDS: hydrALAZINE 100 MG TAB PO SCH ×3 (06:10→22:19)
[2019-09-19] MEDS: INSULIN REGULAR, HUMAN 100 UNITS/1 ML SUB-Q SCH ×4 (07:35→22:32)
[2019-09-19] MEDS: FERROUS SULFATE 325 MG TAB PO SCH ×2 (09:07→22:18)
[2019-09-19] MEDS: guaiFENesin ER 600 MG TAB PO SCH ×2 (09:07→22:19)
[2019-09-19] MEDS: ACETAMINOPHEN 325 MG TAB PO PRN (09:07)
[2019-09-19] MEDS: NIFEdipine XL 60 MG TAB PO SCH (09:08)
[2019-09-19] MEDS: METOPROLOL TARTRATE 100 MG TAB PO SCH ×2 (09:08→22:19)
[2019-09-19] MEDS: TORSEMIDE 10 MG TAB PO SCH (09:08)
[2019-09-19] MEDS: POLYETHYLENE GLYCOL 3350 17 GM POWDER PO SCH (09:09)
[2019-09-19] MEDS: FOLIC ACID 1 MG TAB PO SCH (09:09)
[2019-09-19] MEDS: GABAPENTIN 100 MG CAP PO SCH ×2 (09:09→22:19)
[2019-09-19] MEDS: PANTOPRAZOLE 40 MG TAB PO SCH (09:09)
[2019-09-19] MEDS: METOCLOPRAMIDE 10 MG/2 ML INJ IV SCH ×4 (09:10→22:19)
[2019-09-19] MEDS: HEPARIN 5,000 UNIT/1 ML VIAL SUB-Q SCH ×2 (09:14→22:27)
[2019-09-19 10:02] LABS: Hematocrit 25.8 % (30.3-42.9); Hemoglobin 8.3 gm/dl (10.1-14.3); Mean Corpuscular HGB Conc 32 % (30-34); Platelet Count 425 K/mm3 (140-440); Red Cell Distribution Width 19.6 % (13.2-15.2)
[2019-09-19 10:05] LABS: Mean Corpuscular Volume 70 fl (79-97)
[2019-09-19 10:24] LABS: Calcium 8.7 mg/dL (8.4-10.2)
[2019-09-19] MEDS: CEFEPIME/NS 1 GM/100 ML 1 GM/100 ML BAG IV SCH (10:58)
--- NOTE | 2019-09-19 14:56 | Progress Note ---
Assessment and Plan Assessment and plan: Nausea & vomiting and abdominal pain Probably secondary to gastroparesis cont on IV Zofran as needed, IV Reglan scheduled will also cont on ativan, on PPI Consulted GI as symptom persisted -appreciated recommendation Ascites with volume overload -s/p paracentesis drained 1900 cc fluid Left bundle branch block (LBBB) with elevated troponin Patient denies any chest pain at this time. EKG findings and elevated troponin discussed with the on-call breast splitter by the ER physician. Status post stress test - which is normal Echo reviewed - EF 45-50%, pseudonormalization, CE elevation pattern appears c/w NSTEMI type II. No plans for additional cardiac w/u at this time. Diabetic ulcer of heel, chronic nonhealing s/p bedside debridement by Dr. Rowell Patient was recommended amputation in the past but she refused consulted to wound care team for evaluation and management wound cx gowing gm -ve rods, ID consulted for abx recommendation, following On Cefepime, vancomycin added. I discussed with Dr. Moore Surgeon to re-evaluate tomorrow. Diabetes type II on insulin We will monitor Accu-Cheks, continue routine home medications. End-stage renal disease on hemodialysis Patient is on dialysis Tuesday, and Saturdays. consulted nephrology for dialysis during this admission HTN (hypertension), uncontrolled Will continue routine home medications and monitor vital signs closely. adjust medications as needed DVT prophylaxis Patient placed on subcu to heparin Full code status Disposition: Home with home health when medically stable History Interval history: Right heel wound Nausea, vomiting Hospitalist Physical - Physical exam Narrative exam: GENERAL: Not in acute distress, appeared to be chronically ill HEENT: Normocephalic. Atraumatic. Patient has moist mucous membranes. NECK: Supple. Trachea midline. CHEST/LUNGS: Clear to auscultated bilaterally, No wheezes crackles or rhonchi. HEART/CARDIOVASCULAR: RRR. S1 and S2 reg, no murmurs rubs or gallop. ABDOMEN: Abdomen is soft, nontender, nondistended. Patient has normal bowel sounds. SKIN: There is no rash. Warm and dry. NEURO: AAO x 3, No focal motor deficit. Follows command. EXTRIMITY: Right foot with wound dressing, left AKA PSYCH: Cooperative. - Constitutional Vitals: Temp Pulse Resp BP Pulse Ox 99.0 F 75 16 140/63 99 09/19/19 08:29 09/19/19 09:08 09/19/19 08:29 09/19/19 08:29 09/19/19 08:29 General appearance: Present: no acute distress Results - Labs CBC & Chem 7: 09/19/19 09:07 09/19/19 09:07 Labs: Laboratory Last Values WBC 15.8 K/mm3 (4.5-11.0) H 09/19/19 09:07 RBC 3.70 M/mm3 (3.65-5.03) 09/19/19 09:07 Hgb 8.3 gm/dl (10.1-14.3) L 09/19/19 09:07 Hct 25.8 % (30.3-42.9) L 09/19/19 09:07 MCV 70 fl (79-97) L 09/19/19 09:07 MCH 22 pg (28-32) L 09/19/19 09:07 MCHC 32 % (30-34) 09/19/19 09:07 RDW 19.6 % (13.2-15.2) H 09/19/19 09:07 Plt Count 425 K/mm3 (140-440) 09/19/19 09:07 Lymph # Director [employer] News 09/14/19 02:47 Add Manual Diff Complete 09/17/19 06:56 Total Counted 100 09/17/19 06:56 Seg Neuts % (Manual) 84.0 % (40.0-70.0) H 09/17/19 06:56 Band Neutrophils % 0 % 09/17/19 06:56 Lymphocytes % (Manual) 11.0 % (13.4-35.0) L 09/17/19 06:56 Reactive Lymphs % (Man) 0 % 09/17/19 06:56 Monocytes % (Manual) 5.0 % (0.0-7.3) 09/17/19 06:56 Eosinophils % (Manual) 0 % (0.0-4.3) 09/17/19 06:56 Basophils % (Manual) 0 % (0.0-1.8) 09/17/19 06:56 Metamyelocytes % 0 % 09/17/19 06:56 Myelocytes % 0 % 09/17/19 06:56 Promyelocytes % 0 % 09/17/19 06:56 Blast Cells % 0 % 09/17/19 06:56 Nucleated RBC % Not Reportable 09/17/19 06:56 Seg Neutrophils # Man 17.6 K/mm3 (1.8-7.7) H 09/17/19 06:56 Band Neutrophils # 0.0 K/mm3 09/17/19 06:56 Lymphocytes # (Manual) 2.3 K/mm3 (1.2-5.4) 09/17/19 06:56 Abs React Lymphs (Man) 0.0 K/mm3 09/17/19 06:56 Monocytes # (Manual) 1.0 K/mm3 (0.0-0.8) H 09/17/19 06:56 Eosinophils # (Manual) 0.0 K/mm3 (0.0-0.4) 09/17/19 06:56 Basophils # (Manual) 0.0 K/mm3 (0.0-0.1) 09/17/19 06:56 Metamyelocytes # 0.0 K/mm3 09/17/19 06:56 Myelocytes # 0.0 K/mm3 09/17/19 06:56 Promyelocytes # 0.0 K/mm3 09/17/19 06:56 Blast Cells # 0.0 K/mm3 09/17/19 06:56 WBC Morphology Not Reportable 09/17/19 06:56 Hypersegmented Neuts Not Reportable 09/17/19 06:56 Hyposegmented Neuts Not Reportable 09/17/19 06:56 Hypogranular Neuts Not Reportable 09/17/19 06:56 Smudge Cells Not Reportable 09/17/19 06:56 Toxic Granulation Not Reportable 09/17/19 06:56 Toxic Vacuolation Not Reportable 09/17/19 06:56 Dohle Bodies Not Reportable 09/17/19 06:56 Pelger-Huet Anomaly Not Reportable 09/17/19 06:56 Mary Lou Rods Not Reportable 09/17/19 06:56 Platelet Estimate Consistent w auto 09/17/19 06:56 Clumped Platelets Not Reportable 09/17/19 06:56 Plt Clumps, EDTA Not Reportable 09/17/19 06:56 Large Platelets Few 09/17/19 06:56 Giant Platelets Not Reportable 09/17/19 06:56 Platelet Satelliting Not Reportable 09/17/19 06:56 Plt Morphology Comment Not Reportable 09/17/19 06:56 RBC Morphology Not Reportable 09/17/19 06:56 Dimorphic RBCs Not Reportable 09/17/19 06:56 Polychromasia Not Reportable 09/17/19 06:56 Hypochromasia 2+ 09/17/19 06:56 Poikilocytosis 2+ 09/17/19 06:56 Anisocytosis 2+ 09/17/19 06:56 Microcytosis 1+ 09/17/19 06:56 Macrocytosis Not Reportable 09/17/19 06:56 Spherocytes Not Reportable 09/17/19 06:56 Pappenheimer Bodies Not Reportable 09/17/19 06:56 Sickle Cells Not Reportable 09/17/19 06:56 Target Cells 2+ 09/17/19 06:56 Tear Drop Cells Rare 09/17/19 06:56 Ovalocytes Few 09/17/19 06:56 Helmet Cells Not Reportable 09/17/19 06:56 [place] Bodies Not Reportable 09/17/19 06:56 [place] Rings Not Reportable 09/17/19 06:56 [place] Cells Not Reportable 09/17/19 06:56 Bite Cells Not Reportable 09/17/19 06:56 Crenated Cell Not Reportable 09/17/19 06:56 Elliptocytes Few 09/17/19 06:56 Acanthocytes (Spur) Not Reportable 09/17/19 06:56 Rouleaux Not Reportable 09/17/19 06:56 Hemoglobin C Crystals Not Reportable 09/17/19 06:56 Schistocytes Not Reportable 09/17/19 06:56 Malaria parasites Not Reportable 09/17/19 06:56 Sigifredo Bodies Not Reportable 09/17/19 06:56 Hem Pathologist Commnt No 09/17/19 06:56 PT 15.3 Sec. (12.2-14.9) H 09/14/19 02:47 INR 1.22 (0.87-1.13) H 09/14/19 02:47 APTT 42.9 Sec. (24.2-36.6) H 09/14/19 02:47 Sodium 134 mmol/L (137-145) L 09/19/19 09:07 Potassium 4.5 mmol/L (3.6-5.0) 09/19/19 09:07 Chloride 90.6 mmol/L (98-107) L 09/19/19 09:07 Carbon Dioxide 20 mmol/L (22-30) L 09/19/19 09:07 Anion Gap 28 mmol/L 09/19/19 09:07 BUN 37 mg/dL (7-17) H 09/19/19 09:07 Creatinine 6.2 mg/dL (0.7-1.2) H 09/19/19 09:07 Estimated GFR 8 ml/min 09/19/19 09:07 BUN/Creatinine Ratio 6 % 09/19/19 09:07 Glucose 217 mg/dL (65-100) H 09/19/19 09:07 POC Glucose 363 (70-105) H 09/19/19 10:36 Calcium 8.7 mg/dL (8.4-10.2) 09/19/19 09:07 Total Bilirubin 1.60 mg/dL (0.1-1.2) H 09/13/19 00:33 AST 17 units/L (5-40) 09/13/19 00:33 ALT 11 units/L (7-56) 09/13/19 00:33 Alkaline Phosphatase 713 units/L (35-129) H 09/13/19 00:33 Troponin T 0.193 ng/mL (0.00-0.029) H* 09/13/19 05:51 Total Protein 9.1 g/dL (6.3-8.2) H 09/13/19 00:33 Albumin 3.3 g/dL (3.9-5) L 09/13/19 00:33 Albumin/Globulin Ratio 0.6 % 09/13/19 00:33 Triglycerides 227 mg/dL (2-149) H 09/13/19 02:01 Cholesterol 191 mg/dL (50-199) 09/13/19 02:01 LDL Cholesterol Direct 86 mg/dL (50-130) 09/13/19 02:01 HDL Cholesterol 28 mg/dL (40-59) L 09/13/19 02:01 Cholesterol/HDL Ratio 6.82 % 09/13/19 02:01 Lipase 14 units/L (13-60) 09/13/19 00:33 Hepatitis A IgM Ab Non-reactive (NonReactive) 09/14/19 19:21 Hep Bs Antigen Non-reactive (Negative) 09/14/19 19:21 Hep B Core IgM Ab Non-reactive (NonReactive) 09/14/19 19:21 Hepatitis C Antibody Non-reactive (NonReactive) 09/14/19 19:21 Active Medications - Current Medications Current Medications: Generic Name Dose Route Start Last Admin Trade Name Freq PRN Reason Stop Dose Admin Acetaminophen 650 mg 09/13/19 05:02 09/19/19 09:07 Tylenol PO 650 mg Q4H PRN Administration Pain MILD(1-3)/Fever >100.5/CASTILLO Albumin Human 25 gm 09/13/19 13:06 Alburx 25% (Albumin) IV FRANCOIS PRN Hypotension Ascorbic Acid 500 mg 09/16/19 22:00 09/18/19 22:20 Vitamin C PO 500 mg BID FATMATA Administration Clonidine HCl 0.1 mg 09/16/19 12:40 09/18/19 14:26 Catapres PO 0.1 mg Q12H PRN Administration SBP > 160 Dextrose 50 ml 09/13/19 06:10 D50w (25gm) Syringe IV Q30MIN PRN Hypoglycemia Protocol Epoetin Jacoby 10,000 unit 09/13/19 13:06 09/18/19 12:15 Procrit SUB-Q 10,000 unit FRANCOIS PRN Administration hemodialysis Ferrous Sulfate 325 mg 09/16/19 22:00 09/19/19 09:07 Feosol PO 325 mg BID FATMATA Administration Folic Acid 1 mg 09/17/19 10:00 09/19/19 09:09 Folvite PO 1 mg QDAY FATMATA Administration Gabapentin 100 mg 09/16/19 22:00 09/19/19 09:09 Gabapentin PO 100 mg BID FATMATA Administration Guaifenesin 600 mg 09/18/19 23:00 09/19/19 09:07 Mucinex Er PO 600 mg BID FATMATA Administration Heparin Sodium (Porcine) 5,000 unit 09/13/19 22:00 09/19/19 09:14 Heparin SUB-Q Not Given Q12HR FATMATA Hydralazine HCl 100 mg 09/16/19 14:00 09/19/19 06:10 Apresoline PO 100 mg Q8HR FATMATA Administration Sodium Chloride 100 mls @ 999 mls/hr 09/13/19 13:06 Nacl 0.9% IV FRANCOIS PRN Hypotension Cefepime HCl 1 gm in 100 mls @ 200 mls/hr 09/17/19 20:00 09/19/19 10:58 Cefepime/Ns 1 Gm/100 Ml IV 200 mls/hr Q24HR FATMATA Administration Protocol Insulin Glargine 8 units 09/16/19 22:00 09/18/19 22:22 Lantus SUB-Q 8 units QHS FATMATA Administration Insulin Human Regular 0 units 09/13/19 07:30 09/19/19 10:57 Humulin R SUB-Q 6 units ACHS FATMATA Administration Protocol Lorazepam 0.5 mg 09/18/19 22:45 Ativan PO DAILY PRN Anxiety Magnesium Hydroxide 30 ml 09/13/19 05:02 Milk Of Magnesia PO Q4H PRN Constipation Metoclopramide HCl 10 mg 09/14/19 16:30 09/19/19 09:10 Reglan IV 10 mg ACHS FATMATA Administration Metoprolol Tartrate 100 mg 09/16/19 22:00 09/19/19 09:08 Metoprolol PO 100 mg BID FATMATA Administration Nifedipine 60 mg 09/16/19 13:00 09/19/19 09:08 Procardia Xl PO 60 mg QDAY FATMATA Administration Ondansetron HCl 4 mg 09/13/19 05:02 09/16/19 04:29 Zofran IV 4 mg Q8H PRN Administration Nausea And Vomiting Oxycodone/Acetaminophen 1 tab 09/18/19 22:43 Percocet 5/325 PO Q6H PRN Pain, Moderate (4-6) Pantoprazole Sodium 40 mg 09/19/19 10:00 09/19/19 09:09 Protonix PO 40 mg DAILY FATMATA Administration Polyethylene Glycol 17 gm 09/17/19 10:00 09/19/19 09:09 Miralax 3350 PO Not Given QDAY FATMATA Sodium Chloride 10 ml 09/13/19 10:00 09/19/19 09:09 Sodium Chloride Flush Syringe 10 Ml IV 10 ml BID FATMATA Administration Sodium Chloride 10 ml 09/13/19 05:02 09/16/19 04:31 Sodium Chloride Flush Syringe 10 Ml IV 10 ml PRN PRN Administration LINE FLUSH Torsemide 60 mg 09/17/19 10:00 09/19/19 09:08 Demadex PO 60 mg QDAY FATMATA Administration Zolpidem Tartrate 5 mg 09/16/19 12:40 09/18/19 23:22 Ambien PO 5 mg QHS PRN Administration Sleep Nutrition/Malnutrition Assess - Dietary Evaluation Nutrition/Malnutrition Findings: Nutrition Notes Start: 09/14/19 11:18 Freq: Status: Active Protocol: Document 09/17/19 13:36 OH (Rec: 09/17/19 13:39 OH [id number]) Nutrition Notes Initial or Follow up Reassessment Current Diagnosis Decubitus(Pressure Ulcer), Diabetes,Hypertension Current Diet Renal Diet Height 5 ft 7 in Weight 63.5 kg [place] Body Weight (kg) 61.36 BMI 21.9 Weight change and time frame Pt. had paracenthesis performed 09/14/19. 1.9L of fluid was removed. Subjective/Other Information f/u: Pt. lying in bed pretending to be asleep. She answered one question stating she didn't care for the Nepro and would like for it to be d/ c'd. Unable to complete additional questions w/pt. Current % PO Negligible Minimum of two criteria Yes Body Fat Depletion Mild depletion (non-severe) Muscle Mass Mild Depletion (non-severe) Reduced Guest Relations Coordinator Strength Measurably Reduced (severe) #1 Nutrition Diagnosis Malnutrition Etiology secondary to ESRD As Evidenced by Signs and Symptoms mild depletion of fat and muscle mass with bilat reduced home energy consultant supervisor strength Is patient on ventilator? No Additional Notes Protein needs: 82-102 g/day (1 .2-1.5 g/kg/day) Fluid needs: 7965-6522 ml Nutrition Intervention Change Diet Order: Continue current diet Add Supplement/Snack (indicate name/kcal d/c nepro per pt request /protein ) Learning Readiness Poor Anticipated Discharge Needs: Renal Diet Follow-Up By: 09/20/19 Additional Comments Follow up for PO intake and ONS tolerance Renal/Consistent CHO diet
--- NOTE | 2019-09-19 16:10 | Progress Note ---
Assessment and Plan Cultures: Blood culture 09/16/2019 no growth so far. Wound culture 09/16/2019 Proteus and MSSA Previous left foot wound grew MDR Enterobacter and E faecalis Assessment: 54 y/o female with history of ESRD on HD M/W/F, HTN, Insulin-dependent diabetes, ascitis requiring paracentesis in the past from ESRD, previous pancreatitis, known to us from previous hospitalization in March 2019 and May 2019 with left foot diabetic heel necrotic ulcer s/p BKA on 06/27/2019 readmitted on 09/12/2019 due to abdominal pain and N/V found to have a worsening right heel wound: 1) Right heel non healing necrotic wound: Patient has a chronic right heel necrotic ulcer follows with Wound care Dr Crawford for this. She underwent debridement of necrotic SQ, muscle and fascia from right foot and heel on 09/13/2019. Recent outpatient MRI right foot in July 2019 shows large heel ulcer with cellulitis/myositis but no osteomyelitis. Wound culture 09/16/2019 with Proteus and MSSA. Arterial doppler is abnormal. 2) Leukocytosis: likely due to #1 Recs: consider vascular surgery consult due to abnormal arterial doppler and non healing right heel leg start cefazolin renally adjusted - Proteus is sensitive to 1st gen cephalosporins stop cefepime and vancomycin stop contact no MRSA and previous leg with MDR Enterobacter was amputated risk for amputation discussed with Dr Rowell - if no bone involvement will set up IV abx on HD for 3 weeks, if there is bone involvement will treat for 6 weeks. Will follow. April Segovia MD Infectious Diseases [facility] M [phone] O [phone] Subjective Date of service: 09/19/19 Principal diagnosis: N/V Interval history: Feels ok, no complaints. No fever. Objective - Exam Narrative Exam: Constitutional: Alert, cooperative. No acute distress Head, Ears, Nose: Normocephalic, atraumatic. External ears, nose normal Eyes: Conjunctivae/corneas clear. No icterus. No ptosis. Neck: Supple, no meningeal signs Oral: dentition fair, no thrush Cardiovascular: S1, S2 normal. Respiratory: Good air entry, clear to auscultation bilaterally GI: Soft, non-tender; uterus Musculoskeletal: right heel large wound with surgical dressings Skin: No rash or abscess Hem/Lymphatic: No palpable cervical or supraclavicular nodes. No lymphangitis Psych: Mood ok. Affect normal Neurological: Awake, alert, oriented. No gross abnormality - Constitutional Vitals: Vital Signs Temp Pulse Resp BP Pulse Ox 98.4 F 70 16 145/64 99 09/19/19 15:36 09/19/19 15:36 09/19/19 08:29 09/19/19 15:20 09/19/19 08:29 Temperature -Last 24 Hours Temperature 98.4 F Temperature 99.0 F Temperature 99.5 F Temperature 98.4 F Temperature 98.7 F Temperature 98.0 F - Labs CBC & Chem 7: 09/19/19 09:07 09/19/19 09:07 Labs: Abnormal lab results 09/18/19 09/18/19 09/19/19 Range/Units 16:39 22:06 08:37 WBC (4.5-11.0) K/mm3 Hgb (10.1-14.3) gm/dl Hct (30.3-42.9) % MCV (79-97) fl MCH (28-32) pg RDW (13.2-15.2) % Sodium (137-145) mmol/L Chloride (98-107) mmol/L Carbon Dioxide (22-30) mmol/L BUN (7-17) mg/dL Creatinine (0.7-1.2) mg/dL Glucose (65-100) mg/dL POC Glucose 235 H 324 H 243 H (70-105) 09/19/19 09/19/19 09/19/19 Range/Units 09:07 09:07 10:36 WBC 15.8 H (4.5-11.0) K/mm3 Hgb 8.3 L (10.1-14.3) gm/dl Hct 25.8 L (30.3-42.9) % MCV 70 L (79-97) fl MCH 22 L (28-32) pg RDW 19.6 H (13.2-15.2) % Sodium 134 L (137-145) mmol/L Chloride 90.6 L (98-107) mmol/L Carbon Dioxide 20 L (22-30) mmol/L BUN 37 H (7-17) mg/dL Creatinine 6.2 H (0.7-1.2) mg/dL Glucose 217 H (65-100) mg/dL POC Glucose 363 H (70-105)
[2019-09-19] MEDS: ASCORBIC ACID 500 MG TAB PO SCH ×2 (17:57→22:19)
--- NOTE | 2019-09-19 20:03 | Progress Note ---
Assessment and Plan - Patient Problems (1) Diabetic ulcer of heel Current Visit: Yes Status: Chronic Qualifiers: Diabetes mellitus type: type 1 Laterality: left Non-pressure ulcer stage: unspecified non-pressure ulcer stage Qualified Code(s): E10.621 - Type 1 diabetes mellitus with foot ulcer; L97.429 - Non-pressure chronic ulcer of left heel and midfoot with unspecified severity Plan to address problem: Continue wound care, antibiotics and pain control. (2) Anemia in chronic illness Current Visit: No Status: Chronic Plan to address problem: Erythropoietin on dialysis (3) End-stage renal disease on hemodialysis Current Visit: No Status: Chronic Plan to address problem: Hemodialysis on a Tuesday, and Tuesday schedule (4) Hypertensive chronic kidney disease with stage 5 chronic kidney disease or end stage renal disease Current Visit: No Status: Chronic Plan to address problem: Follow-up blood pressure on current medications (5) Type 2 diabetes mellitus with diabetic chronic kidney disease Current Visit: No Status: Chronic Qualifiers: Chronic kidney disease stage: on chronic dialysis Plan to address problem: Blood sugar management by primary attending Subjective Date of service: 09/19/19 Principal diagnosis: N/V Interval history: Patient seen lying in bed. She is feeling better. Pain is improving. Cough is not better though Objective - Exam Narrative Exam: Middle aged -Niuean female lying in bed in no acute distress HEENT: NCAT, pink oral mucous membrane Neck: Supple, no venous distention CVS: S1S2 RRR with no murmur, rub or gallop Chest: Clear to auscultation Abdomen: Protuberant, soft, nontender, no organomegaly, bowel sounds are present Extremities: Dressing in right Foot clean and dry, pigmentary changes, left below knee amputation with healed stump clean and dry Neuro: Awake, alert no focal deficits - Vital Signs Vital signs: Vital Signs - 12hr 09/19/19 09/19/19 09/19/19 08:29 09:08 15:20 Temperature 99.0 F Pulse Rate 61 75 Respiratory 16 Rate Blood Pressure 140/63 145/64 O2 Sat by Pulse 99 Oximetry 09/19/19 09/19/19 15:36 16:41 Temperature 98.4 F 98.9 F Pulse Rate 70 65 Respiratory 18 Rate Blood Pressure 151/75 O2 Sat by Pulse 99 Oximetry - Lab 09/19/19 09:07 09/19/19 09:07 Most recent lab results Calcium 8.7 mg/dL (8.4-10.2) 09/19/19 09:07 Medications & Allergies - Medications Allergies/Adverse Reactions: Allergies amlodipine Allergy (Verified 04/20/19 11:49) Itching losartan Allergy (Verified 04/20/19 11:49) Itching sulfamethoxazole [From Bactrim] Allergy (Verified 04/20/19 11:49) Rash trimethoprim [From Bactrim] Allergy (Verified 04/20/19 11:49) Rash morphine Adverse Reaction (Verified 04/20/19 11:49) Vomiting Home Medications: Home Medications Medication Instructions Recorded Confirmed Last Taken Type Ascorbic Acid [Vitamin C] 500 mg PO BID #14 tablet 07/13/19 09/13/19 Unknown Rx Epoetin Jacoby 10,000 Unit [Procrit] 5,000 unit IV FRANCOIS PRN vial 07/13/19 09/13/19 Unknown Rx Ferrous Sulfate [Feosol 325 MG tab] 325 mg PO BID #14 tablet 07/13/19 09/13/19 Unknown Rx Folic Acid [Folvite] 1 mg PO QDAY #7 tablet 07/13/19 09/13/19 Unknown Rx Gabapentin 100 mg PO BID #60 capsule 07/13/19 09/13/19 Unknown Rx Insulin Glargine [Lantus VIAL] 15 units SUB-Q QHS 30 Days units 07/13/19 Unknown Rx Lispro Insulin [HumaLOG] See Protocol SUB-Q ACHS 30 Days 07/13/19 09/13/19 Unknown Rx units Metoclopramide [Reglan TAB] 5 mg PO ACHS 30 Days tablet 07/13/19 09/13/19 Unknown Rx Metoprolol [Lopressor TAB] 100 mg PO BID #60 tablet 07/13/19 09/13/19 Unknown Rx NIFEdipine XL [Procardia Xl] 60 mg PO QDAY #30 tablet 07/13/19 09/13/19 Unknown Rx Polyethylene Glycol 3350 [Miralax 17 gm PO QDAY 30 Days powd.pack 07/13/19 09/13/19 Unknown Rx 3350] Torsemide [Demadex] 60 mg PO DAILY 30 Days tablet 07/13/19 09/13/19 Unknown Rx Zolpidem [Ambien] 5 mg PO QHS PRN #15 tablet 07/13/19 09/13/19 Unknown Rx cloNIDine [Catapres] 0.1 mg PO Q12H PRN #60 tablet 07/13/19 09/13/19 Unknown Rx hydrALAZINE [Apresoline TAB] 100 mg PO Q8HR #90 tab 07/13/19 09/13/19 Unknown Rx oxyCODONE [roxiCODONE] 5 mg PO Q4H PRN #20 tablet 07/13/19 09/13/19 Unknown Rx Active Medications: Generic Name Dose Route Start Last Admin Trade Name Freq PRN Reason Stop Dose Admin Acetaminophen 650 mg 09/13/19 05:02 09/19/19 09:07 Tylenol PO 650 mg Q4H PRN Administration Pain MILD(1-3)/Fever >100.5/CASTILLO Albumin Human 25 gm 09/13/19 13:06 Alburx 25% (Albumin) IV FRANCOIS PRN Hypotension Ascorbic Acid 500 mg 09/16/19 22:00 09/19/19 17:57 Vitamin C PO 500 mg BID FATMATA Administration Clonidine HCl 0.1 mg 09/16/19 12:40 09/18/19 14:26 Catapres PO 0.1 mg Q12H PRN Administration SBP > 160 Dextrose 50 ml 09/13/19 06:10 D50w (25gm) Syringe IV Q30MIN PRN Hypoglycemia Protocol Epoetin Jacoby 10,000 unit 09/13/19 13:06 09/18/19 12:15 Procrit SUB-Q 10,000 unit FRANCOIS PRN Administration hemodialysis Ferrous Sulfate 325 mg 09/16/19 22:00 09/19/19 09:07 Feosol PO 325 mg BID FATMATA Administration Folic Acid 1 mg 09/17/19 10:00 09/19/19 09:09 Folvite PO 1 mg QDAY FATMATA Administration Gabapentin 100 mg 09/16/19 22:00 09/19/19 09:09 Gabapentin PO 100 mg BID FATMATA Administration Guaifenesin 600 mg 09/18/19 23:00 09/19/19 09:07 Mucinex Er PO 600 mg BID FATMATA Administration Heparin Sodium (Porcine) 5,000 unit 09/13/19 22:00 09/19/19 09:14 Heparin SUB-Q Not Given Q12HR FATMATA Hydralazine HCl 100 mg 09/16/19 14:00 09/19/19 17:57 Apresoline PO 100 mg Q8HR FATMATA Administration Sodium Chloride 100 mls @ 999 mls/hr 09/13/19 13:06 Nacl 0.9% IV FRANCOIS PRN Hypotension Cefazolin Sodium 1 gm in 50 mls @ 100 mls/hr 09/19/19 20:00 Ancef/Ns 1 Gm/50 Ml IV Q24H COUNTS INCLUDE 234 BEDS AT THE [facility] Protocol Insulin Glargine 8 units 09/16/19 22:00 09/18/19 22:22 Lantus SUB-Q 8 units QHS FATMATA Administration Insulin Human Regular 0 units 09/13/19 07:30 09/19/19 17:58 Humulin R SUB-Q Not Given [facility] COUNT[facility] INCLUDE 234 BEDS AT THE [facility] Protocol Lorazepam 0.5 mg 09/18/19 22:45 Ativan PO DAILY PRN Anxiety Magnesium Hydroxide 30 ml 09/13/19 05:02 Milk Of Magnesia PO Q4H PRN Constipation Metoclopramide HCl 10 mg 09/14/19 16:30 09/19/19 17:56 Reglan IV 10 mg ACHS FATMATA Administration Metoprolol Tartrate 100 mg 09/16/19 22:00 09/19/19 09:08 Metoprolol PO 100 mg BID FATMATA Administration Nifedipine 60 mg 09/16/19 13:00 09/19/19 09:08 Procardia Xl PO 60 mg QDAY FATMATA Administration Ondansetron HCl 4 mg 09/13/19 05:02 09/16/19 04:29 Zofran IV 4 mg Q8H PRN Administration Nausea And Vomiting Oxycodone/Acetaminophen 1 tab 09/18/19 22:43 Percocet 5/325 PO Q6H PRN Pain, Moderate (4-6) Pantoprazole Sodium 40 mg 09/19/19 10:00 09/19/19 09:09 Protonix PO 40 mg DAILY FATMATA Administration Polyethylene Glycol 17 gm 09/17/19 10:00 09/19/19 09:09 Miralax 3350 PO Not Given QDAY FATMATA Sodium Chloride 10 ml 09/13/19 10:00 09/19/19 09:09 Sodium Chloride Flush Syringe 10 Ml IV 10 ml BID FATMATA Administration Sodium Chloride 10 ml 09/13/19 05:02 09/16/19 04:31 Sodium Chloride Flush Syringe 10 Ml IV 10 ml PRN PRN Administration LINE FLUSH Torsemide 60 mg 09/17/19 10:00 09/19/19 09:08 Demadex PO 60 mg QDAY FATMATA Administration Zolpidem Tartrate 5 mg 09/16/19 12:40 09/18/19 23:22 Ambien PO 5 mg QHS PRN Administration Sleep
[2019-09-19] MEDS: LORazepam 1 MG TAB PO PRN (22:18)
[2019-09-19] MEDS: ZOLPIDEM 5 MG TAB PO PRN (22:18)
[2019-09-19] MEDS: BENZONATATE 100 MG CAP PO SCH (22:19)
[2019-09-19] MEDS: INSULIN GLARGINE 100 UNITS/ML SUB-Q SCH (22:27)
[2019-09-19] MEDS: ceFAZolin/NS 1 GM/50 ML 1 GM/50 ML BAG IV SCH (22:40)
[2019-09-20] MEDS: hydrALAZINE 100 MG TAB PO SCH ×3 (05:50→21:59)
[2019-09-20] MEDS: BENZONATATE 100 MG CAP PO SCH ×3 (05:50→21:58)
[2019-09-20 07:58] LABS: Hematocrit 26.3 % (30.3-42.9); Hemoglobin 8.2 gm/dl (10.1-14.3); Mean Corpuscular HGB Conc 31 % (30-34); Mean Corpuscular Volume 70 fl (79-97); Platelet Count 409 K/mm3 (140-440); Red Blood Count 3.74 M/mm3 (3.65-5.03)
[2019-09-20] MEDS: METOCLOPRAMIDE 10 MG/2 ML INJ IV SCH ×2 (08:00→11:39)
[2019-09-20] MEDS: INSULIN REGULAR, HUMAN 100 UNITS/1 ML SUB-Q SCH ×5 (08:00→23:20)
[2019-09-20 08:08] LABS: Red Cell Distribution Width 20.5 % (13.2-15.2)
[2019-09-20 08:15] LABS: Calcium 8.9 mg/dL (8.4-10.2)
[2019-09-20] MEDS: LORazepam 1 MG TAB PO PRN (08:56)
[2019-09-20] MEDS: POLYETHYLENE GLYCOL 3350 17 GM POWDER PO SCH (10:48)
[2019-09-20] MEDS ORDERED: SODIUM CHLORIDE*PRIMING MACHINE ONLY FOR DIALYSIS MC ONE (11:33)
[2019-09-20] MEDS: oxyCODONE /ACETAMINOPHEN 5-325MG TAB PO PRN ×2 (12:00→21:58)
[2019-09-20] MEDS: HEPARIN 5,000 UNIT/1 ML VIAL SUB-Q SCH ×2 (13:44→22:07)
[2019-09-20] MEDS: FERROUS SULFATE 325 MG TAB PO SCH ×2 (13:51→21:59)
[2019-09-20] MEDS: NIFEdipine XL 60 MG TAB PO SCH (13:51)
[2019-09-20] MEDS: cloNIDine 0.1 MG TAB PO PRN (13:51)
[2019-09-20] MEDS: TORSEMIDE 10 MG TAB PO SCH (13:51)
[2019-09-20] MEDS: guaiFENesin ER 600 MG TAB PO SCH ×2 (13:51→21:59)
[2019-09-20] MEDS: GABAPENTIN 100 MG CAP PO SCH ×2 (13:51→21:58)
[2019-09-20] MEDS: FOLIC ACID 1 MG TAB PO SCH (13:51)
[2019-09-20] MEDS: ASCORBIC ACID 500 MG TAB PO SCH ×2 (13:52→21:58)
[2019-09-20] MEDS: PANTOPRAZOLE 40 MG TAB PO SCH (13:52)
[2019-09-20] MEDS: METOPROLOL TARTRATE 100 MG TAB PO SCH ×2 (13:52→21:59)
[2019-09-20] MEDS: SODIUM HYPOCHLORITE, DAKIN'S 1/2 STRENGTH (0.25%) 473 ML TOPICAL SOLN TP SCH ×2 (15:57→22:01)
--- NOTE | 2019-09-20 16:05 | Progress Note ---
Assessment and Plan Cultures: Blood culture 09/16/2019 no growth so far. Wound culture 09/16/2019 Proteus and MSSA Previous left foot wound grew MDR Enterobacter and E faecalis Assessment: 54 y/o female with history of ESRD on HD M/W/F, HTN, Insulin-dependent diabetes, ascitis requiring paracentesis in the past from ESRD, previous pancreatitis, known to us from previous hospitalization in March 2019 and May 2019 with left foot diabetic heel necrotic ulcer s/p BKA on 06/27/2019 readmitted on 09/12/2019 due to abdominal pain and N/V found to have a worsening right heel wound: 1) Right heel non healing necrotic wound: Patient has a chronic right heel necrotic ulcer follows with Wound care Dr Rowell for this. She underwent debridement of necrotic SQ, muscle and fascia from right foot and heel on 09/13/2019. Recent outpatient MRI right foot in July 2019 shows large heel ulcer with cellulitis/myositis but no osteomyelitis. Wound culture 09/16/2019 with Proteus and MSSA. Arterial doppler is abnormal. 2) Leukocytosis: not better likely due to #1 Recs: vascular surgery consult due to abnormal arterial doppler and non healing right heel leg patient threatening to leave AMA, extensive discussion about the improtance of seeing vascular before d/c continue cefazolin renally adjusted - Proteus is sensitive to 1st gen cephalosporins risk for amputation anticipate to d/c on cefazolin 2 gm IV after HD on Tuesday, 2 gm IV after HD on Tuesday and 3 gm IV after HD on Tuesday for 3 weeks until Oct 07, 2019. Order sent to gearcase assembler Will follow. April Segovia MD Infectious Diseases Psychiatric Nurse Practitioner [facility] M [phone] O [phone] Subjective Date of service: 09/20/19 Principal diagnosis: N/V Interval history: Feels ok, no complaints. No fever. Objective - Exam Narrative Exam: Constitutional: Alert, cooperative. No acute distress Head, Ears, Nose: Normocephalic, atraumatic. External ears, nose normal Eyes: Conjunctivae/corneas clear. No icterus. No ptosis. Neck: Supple, no meningeal signs Oral: dentition fair, no thrush Cardiovascular: S1, S2 normal. Respiratory: Good air entry, clear to auscultation bilaterally GI: Soft, non-tender; uterus Musculoskeletal: right heel large wound with copious slough Skin: No rash or abscess Hem/Lymphatic: No palpable cervical or supraclavicular nodes. No lymphangitis Psych: Mood ok. Affect normal Neurological: Awake, alert, oriented. No gross abnormality - Constitutional Vitals: Vital Signs Temp Pulse Resp BP Pulse Ox 98.4 F 73 18 134/69 99 09/20/19 12:48 09/20/19 12:48 09/20/19 12:48 09/20/19 12:48 09/20/19 00:02 Temperature -Last 24 Hours Temperature 98.4 F Temperature 98.2 F Temperature 98.2 F Temperature 98.0 F Temperature 98.5 F Temperature 98.9 F - Labs CBC & Chem 7: 09/20/19 06:41 09/20/19 06:41 Labs: Abnormal lab results 09/19/19 09/19/19 09/20/19 Range/Units 16:52 22:33 06:41 WBC 16.2 H (4.5-11.0) K/mm3 Hgb 8.2 L (10.1-14.3) gm/dl Hct 26.3 L (30.3-42.9) % MCV 70 L (79-97) fl MCH 22 L (28-32) pg RDW 20.5 H (13.2-15.2) % Sodium (137-145) mmol/L Chloride (98-107) mmol/L Carbon Dioxide (22-30) mmol/L BUN (7-17) mg/dL Creatinine (0.7-1.2) mg/dL Glucose (65-100) mg/dL POC Glucose 148 H 349 H (70-105) 09/20/19 09/20/19 Range/Units 06:41 08:07 WBC (4.5-11.0) K/mm3 Hgb (10.1-14.3) gm/dl Hct (30.3-42.9) % MCV (79-97) fl MCH (28-32) pg RDW (13.2-15.2) % Sodium 134 L (137-145) mmol/L Chloride 91.1 L (98-107) mmol/L Carbon Dioxide 21 L (22-30) mmol/L BUN 47 H (7-17) mg/dL Creatinine 7.0 H (0.7-1.2) mg/dL Glucose 160 H (65-100) mg/dL POC Glucose 179 H (70-105)
--- NOTE | 2019-09-20 16:15 | Progress Note ---
Assessment and Plan Assessment and plan: Nausea & vomiting and abdominal pain Probably secondary to gastroparesis cont on IV Zofran as needed, IV Reglan scheduled will also cont on ativan, on PPI Consulted GI as symptom persisted -appreciated recommendation Ascites with volume overload -s/p paracentesis drained 1900 cc fluid Left bundle branch block (LBBB) with elevated troponin Patient denies any chest pain at this time. EKG findings and elevated troponin discussed with the on-call spinning lathe operator hydraulic by the ER physician. Status post stress test - which is normal Echo reviewed - EF 45-50%, pseudonormalization, CE elevation pattern appears c/w NSTEMI type II. No plans for additional cardiac w/u at this time. Diabetic ulcer of right heel, chronic nonhealing s/p bedside debridement by Dr. Rowell on 09/13 Patient was recommended amputation in the past but she refused consulted wound care team for evaluation and management wound cx growing Proteus mirabilis and MSSA Now on Cefazolin. I discussed with Dr. Moore Surgeon, Dr. Rowell re-consulted to re-evaluate tomorrow. PAD on arterial doppler Consulted Vasc Surgeon Diabetes type II on insulin We will monitor Accu-Cheks, continue routine home medications. End-stage renal disease on hemodialysis Patient is on dialysis Tuesday, and Saturdays. consulted nephrology for dialysis during this admission HTN (hypertension), uncontrolled adjust medications as needed DVT prophylaxis Patient placed on subcut heparin Full code status Disposition: Home with home health when medically stable, likely 1-2 days History Interval history: Right heel wound Nausea and vomiting resolved Hospitalist Physical - Physical exam Narrative exam: GENERAL: Not in acute distress, appeared to be chronically ill HEENT: Normocephalic. Atraumatic. Patient has moist mucous membranes. NECK: Supple. Trachea midline. CHEST/LUNGS: Clear to auscultated bilaterally, No wheezes crackles or rhonchi. HEART/CARDIOVASCULAR: RRR. S1 and S2 reg, no murmurs rubs or gallop. ABDOMEN: Abdomen is soft, nontender, nondistended. Patient has normal bowel sounds. SKIN: There is no rash. Warm and dry. NEURO: AAO x 3, No focal motor deficit. Follows command. EXTRIMITY: Right foot ulcer, covered with wound dressing, left AKA PSYCH: Cooperative. - Constitutional Vitals: Temp Pulse Resp BP Pulse Ox 98.4 F 73 18 134/69 99 09/20/19 12:48 09/20/19 12:48 09/20/19 12:48 09/20/19 12:48 09/20/19 00:02 General appearance: Present: no acute distress Results - Labs CBC & Chem 7: 09/20/19 06:41 09/20/19 06:41 Labs: Laboratory Last Values WBC 16.2 K/mm3 (4.5-11.0) H 09/20/19 06:41 RBC 3.74 M/mm3 (3.65-5.03) 09/20/19 06:41 Hgb 8.2 gm/dl (10.1-14.3) L 09/20/19 06:41 Hct 26.3 % (30.3-42.9) L 09/20/19 06:41 MCV 70 fl (79-97) L 09/20/19 06:41 MCH 22 pg (28-32) L 09/20/19 06:41 MCHC 31 % (30-34) 09/20/19 06:41 RDW 20.5 % (13.2-15.2) H 09/20/19 06:41 Plt Count 409 K/mm3 (140-440) 09/20/19 06:41 Lymph # Content Curator 09/14/19 02:47 Add Manual Diff Complete 09/17/19 06:56 Total Counted 100 09/17/19 06:56 Seg Neuts % (Manual) 84.0 % (40.0-70.0) H 09/17/19 06:56 Band Neutrophils % 0 % 09/17/19 06:56 Lymphocytes % (Manual) 11.0 % (13.4-35.0) L 09/17/19 06:56 Reactive Lymphs % (Man) 0 % 09/17/19 06:56 Monocytes % (Manual) 5.0 % (0.0-7.3) 09/17/19 06:56 Eosinophils % (Manual) 0 % (0.0-4.3) 09/17/19 06:56 Basophils % (Manual) 0 % (0.0-1.8) 09/17/19 06:56 Metamyelocytes % 0 % 09/17/19 06:56 Myelocytes % 0 % 09/17/19 06:56 Promyelocytes % 0 % 09/17/19 06:56 Blast Cells % 0 % 09/17/19 06:56 Nucleated RBC % Not Reportable 09/17/19 06:56 Seg Neutrophils # Man 17.6 K/mm3 (1.8-7.7) H 09/17/19 06:56 Band Neutrophils # 0.0 K/mm3 09/17/19 06:56 Lymphocytes # (Manual) 2.3 K/mm3 (1.2-5.4) 09/17/19 06:56 Abs React Lymphs (Man) 0.0 K/mm3 09/17/19 06:56 Monocytes # (Manual) 1.0 K/mm3 (0.0-0.8) H 09/17/19 06:56 Eosinophils # (Manual) 0.0 K/mm3 (0.0-0.4) 09/17/19 06:56 Basophils # (Manual) 0.0 K/mm3 (0.0-0.1) 09/17/19 06:56 Metamyelocytes # 0.0 K/mm3 09/17/19 06:56 Myelocytes # 0.0 K/mm3 09/17/19 06:56 Promyelocytes # 0.0 K/mm3 09/17/19 06:56 Blast Cells # 0.0 K/mm3 09/17/19 06:56 WBC Morphology Not Reportable 09/17/19 06:56 Hypersegmented Neuts Not Reportable 09/17/19 06:56 Hyposegmented Neuts Not Reportable 09/17/19 06:56 Hypogranular Neuts Not Reportable 09/17/19 06:56 Smudge Cells Not Reportable 09/17/19 06:56 Toxic Granulation Not Reportable 09/17/19 06:56 Toxic Vacuolation Not Reportable 09/17/19 06:56 Dohle Bodies Not Reportable 09/17/19 06:56 Pelger-Huet Anomaly Not Reportable 09/17/19 06:56 Mary Lou Rods Not Reportable 09/17/19 06:56 Platelet Estimate Consistent w auto 09/17/19 06:56 Clumped Platelets Not Reportable 09/17/19 06:56 Plt Clumps, EDTA Not Reportable 09/17/19 06:56 Large Platelets Few 09/17/19 06:56 Giant Platelets Not Reportable 09/17/19 06:56 Platelet Satelliting Not Reportable 09/17/19 06:56 Plt Morphology Comment Not Reportable 09/17/19 06:56 RBC Morphology Not Reportable 09/17/19 06:56 Dimorphic RBCs Not Reportable 09/17/19 06:56 Polychromasia Not Reportable 09/17/19 06:56 Hypochromasia 2+ 09/17/19 06:56 Poikilocytosis 2+ 09/17/19 06:56 Anisocytosis 2+ 09/17/19 06:56 Microcytosis 1+ 09/17/19 06:56 Macrocytosis Not Reportable 09/17/19 06:56 Spherocytes Not Reportable 09/17/19 06:56 Pappenheimer Bodies Not Reportable 09/17/19 06:56 Sickle Cells Not Reportable 09/17/19 06:56 Target Cells 2+ 09/17/19 06:56 Tear Drop Cells Rare 09/17/19 06:56 Ovalocytes Few 09/17/19 06:56 Helmet Cells Not Reportable 09/17/19 06:56 Nelson-Morea Bodies Not Reportable 09/17/19 06:56 [place] Rings Not Reportable 09/17/19 06:56 Nat[place] Cells Not Reportable 09/17/19 06:56 Bite Cells Not Reportable 09/17/19 06:56 Crenated Cell Not Reportable 09/17/19 06:56 Elliptocytes Few 09/17/19 06:56 Acanthocytes (Spur) Not Reportable 09/17/19 06:56 Rouleaux Not Reportable 09/17/19 06:56 Hemoglobin C Crystals Not Reportable 09/17/19 06:56 Schistocytes Not Reportable 09/17/19 06:56 Malaria parasites Not Reportable 09/17/19 06:56 Sigifredo Bodies Not Reportable 09/17/19 06:56 Hem Pathologist Commnt No 09/17/19 06:56 PT 15.3 Sec. (12.2-14.9) H 09/14/19 02:47 INR 1.22 (0.87-1.13) H 09/14/19 02:47 APTT 42.9 Sec. (24.2-36.6) H 09/14/19 02:47 Sodium 134 mmol/L (137-145) L 09/20/19 06:41 Potassium 4.1 mmol/L (3.6-5.0) 09/20/19 06:41 Chloride 91.1 mmol/L (98-107) L 09/20/19 06:41 Carbon Dioxide 21 mmol/L (22-30) L 09/20/19 06:41 Anion Gap 26 mmol/L 09/20/19 06:41 BUN 47 mg/dL (7-17) H 09/20/19 06:41 Creatinine 7.0 mg/dL (0.7-1.2) H 09/20/19 06:41 Estimated GFR 7 ml/min 09/20/19 06:41 BUN/Creatinine Ratio 7 % 09/20/19 06:41 Glucose 160 mg/dL (65-100) H 09/20/19 06:41 POC Glucose 179 (70-105) H 09/20/19 08:07 Calcium 8.9 mg/dL (8.4-10.2) 09/20/19 06:41 Total Bilirubin 1.60 mg/dL (0.1-1.2) H 09/13/19 00:33 AST 17 units/L (5-40) 09/13/19 00:33 ALT 11 units/L (7-56) 09/13/19 00:33 Alkaline Phosphatase 713 units/L (35-129) H 09/13/19 00:33 Troponin T 0.193 ng/mL (0.00-0.029) H* 09/13/19 05:51 Total Protein 9.1 g/dL (6.3-8.2) H 09/13/19 00:33 Albumin 3.3 g/dL (3.9-5) L 09/13/19 00:33 Albumin/Globulin Ratio 0.6 % 09/13/19 00:33 Triglycerides 227 mg/dL (2-149) H 09/13/19 02:01 Cholesterol 191 mg/dL (50-199) 09/13/19 02:01 LDL Cholesterol Direct 86 mg/dL (50-130) 09/13/19 02:01 HDL Cholesterol 28 mg/dL (40-59) L 09/13/19 02:01 Cholesterol/HDL Ratio 6.82 % 09/13/19 02:01 Lipase 14 units/L (13-60) 09/13/19 00:33 Hepatitis A IgM Ab Non-reactive (NonReactive) 09/14/19 19:21 Hep Bs Antigen Non-reactive (Negative) 09/14/19 19:21 Hep B Core IgM Ab Non-reactive (NonReactive) 09/14/19 19:21 Hepatitis C Antibody Non-reactive (NonReactive) 09/14/19 19:21 Active Medications - Current Medications Current Medications: Generic Name Dose Route Start Last Admin Trade Name Freq PRN Reason Stop Dose Admin Acetaminophen 650 mg 09/13/19 05:02 09/19/19 09:07 Tylenol PO 650 mg Q4H PRN Administration Pain MILD(1-3)/Fever >100.5/CASTILLO Albumin Human 25 gm 09/13/19 13:06 Alburx 25% (Albumin) IV FRANCOIS PRN Hypotension Ascorbic Acid 500 mg 09/16/19 22:00 09/20/19 13:52 Vitamin C PO 500 mg BID FATMATA Administration Benzonatate 100 mg 09/19/19 22:00 09/20/19 13:51 Tessalon Perles PO 100 mg Q8HR FATMATA Administration Clonidine HCl 0.1 mg 09/16/19 12:40 09/20/19 13:51 Catapres PO 0.1 mg Q12H PRN Administration SBP > 160 Dextrose 50 ml 09/13/19 06:10 D50w (25gm) Syringe IV Q30MIN PRN Hypoglycemia Protocol Epoetin Jacoby 10,000 unit 09/13/19 13:06 09/18/19 12:15 Procrit SUB-Q 10,000 unit FRANCOIS PRN Administration hemodialysis Ferrous Sulfate 325 mg 09/16/19 22:00 09/20/19 13:51 Feosol PO 325 mg BID FATMATA Administration Folic Acid 1 mg 09/17/19 10:00 09/20/19 13:51 Folvite PO 1 mg QDAY FATMATA Administration Gabapentin 100 mg 09/16/19 22:00 09/20/19 13:51 Gabapentin PO 100 mg BID FATMATA Administration Guaifenesin 600 mg 09/18/19 23:00 09/20/19 13:51 Mucinex Er PO 600 mg BID FATMATA Administration Heparin Sodium (Porcine) 5,000 unit 09/13/19 22:00 09/20/19 13:44 Heparin SUB-Q Not Given Q12HR [facility] Hydralazine HCl 100 mg 09/16/19 14:00 09/20/19 13:51 Apresoline PO 100 mg Q8HR FATMATA Administration Sodium Chloride 100 mls @ 999 mls/hr 09/13/19 13:06 Nacl 0.9% IV FRANCOIS PRN Hypotension Cefazolin Sodium 1 gm in 50 mls @ 100 mls/hr 09/19/19 20:00 09/19/19 22:40 Ancef/Ns 1 Gm/50 Ml IV 100 mls/hr Q24H FATMATA Administration Protocol Insulin Glargine 8 units 09/16/19 22:00 09/19/19 22:27 Lantus SUB-Q 8 units QHS FATMATA Administration Insulin Human Regular 0 units 09/13/19 07:30 09/20/19 11:39 Humulin R SUB-Q Not Given ACHS [facility] Protocol Lorazepam 0.5 mg 09/18/19 22:45 09/20/19 08:56 Ativan PO 0.5 mg DAILY PRN Administration Anxiety Magnesium Hydroxide 30 ml 09/13/19 05:02 Milk Of Magnesia PO Q4H PRN Constipation Metoprolol Tartrate 100 mg 09/16/19 22:00 09/20/19 13:52 Metoprolol PO 100 mg BID FATMATA Administration Nifedipine 60 mg 09/16/19 13:00 09/20/19 13:51 Procardia Xl PO 60 mg QDAY FATMATA Administration Ondansetron HCl 4 mg 09/13/19 05:02 09/16/19 04:29 Zofran IV 4 mg Q8H PRN Administration Nausea And Vomiting Oxycodone/Acetaminophen 1 tab 09/18/19 22:43 09/20/19 12:00 Percocet 5/325 PO 1 tab Q6H PRN Administration Pain, Moderate (4-6) Pantoprazole Sodium 40 mg 09/19/19 10:00 09/20/19 13:52 Protonix PO 40 mg DAILY FATMATA Administration Sodium Chloride 10 ml 09/13/19 10:00 09/20/19 11:39 Sodium Chloride Flush Syringe 10 Ml IV Not Given BID FATMATA Sodium Chloride 10 ml 09/13/19 05:02 09/16/19 04:31 Sodium Chloride Flush Syringe 10 Ml IV 10 ml PRN PRN Administration LINE FLUSH Sodium Hypochlorite 1 applic 09/20/19 15:00 09/20/19 15:57 Dakin's Half Strength TP Not Given BID FATMATA Torsemide 60 mg 09/17/19 10:00 09/20/19 13:51 Demadex PO 60 mg QDAY FATMATA Administration Zolpidem Tartrate 5 mg 09/16/19 12:40 09/19/19 22:18 Ambien PO 5 mg QHS PRN Administration Sleep Nutrition/Malnutrition Assess - Dietary Evaluation Nutrition/Malnutrition Findings: Nutrition Notes Start: 09/14/19 11:18 Freq: Status: Active Protocol: Document 09/20/19 14:25 BEKA (Rec: 09/20/19 14:35 BEKA [id number]) Co-Sign 09/20/19 14:25 KH Nutrition Notes Initial or Follow up Reassessment Current Diagnosis Decubitus(Pressure Ulcer), Diabetes,Hypertension Other Pertinent Diagnosis ESRD on HD (T/T/Sa), Nausea, Abd Pain, Anemia, left BKA Current Diet Renal Diet Labs/Tests BG 160 BUN 47 Cr 7 Pertinent Medications Reviewed Height 5 ft 7 in Weight 63.5 kg [place] Body Weight (kg) 61.36 BMI 21.9 Subjective/Other Information F/U for PO and ONS intakes. Pt stated that their appetite was good. Pt ate 83% average intake. Percent of energy/protein needs met: 93%/79% Burn Absent Trauma Absent Minimum of two criteria Yes Body Fat Depletion Mild depletion (non-severe) Muscle Mass Mild Depletion (non-severe) Reduced Sheet Tester Strength Measurably Reduced (severe) #1 Nutrition Diagnosis Malnutrition Diagnosis Progress(for reassessment Continues documentation) Is patient on ventilator? No Is Patient Ambulatory and/or Out of Bed Yes REE-([place]-St. Jeor-ambulatory/OOB) [ 1641.419 [id number]] Kcal/Kg value to use for calculation 30 Approximate Energy Requirements Using 1905 kcal/Kg Calculation Used for Recommendations Kcal/kg Additional Notes Protein needs: 82-102 g/day (1 .2-1.5 g/kg/day) Fluid needs: 1281-4375 ml Nutrition Intervention Change Diet Order: Continue current diet Goal #1 Meet >80% energy and protein needs Goal #2 Wt gain/maintenance Anticipated Discharge Needs: Renal Diet Follow-Up By: 09/26/19 Additional Comments F/U for consistent PO intakes
[2019-09-20] MEDS: ceFAZolin/NS 1 GM/50 ML 1 GM/50 ML BAG IV SCH (21:00)
--- NOTE | 2019-09-20 21:14 | Progress Note ---
Assessment and Plan - Patient Problems (1) Diabetic ulcer of heel Current Visit: Yes Status: Chronic Qualifiers: Diabetes mellitus type: type 1 Laterality: left Non-pressure ulcer stage: unspecified non-pressure ulcer stage Qualified Code(s): E10.621 - Type 1 diabetes mellitus with foot ulcer; L97.429 - Non-pressure chronic ulcer of left heel and midfoot with unspecified severity Plan to address problem: Continue wound care, antibiotics and pain control. (2) Anemia in chronic illness Current Visit: No Status: Chronic Plan to address problem: Erythropoietin on dialysis (3) End-stage renal disease on hemodialysis Current Visit: No Status: Chronic Plan to address problem: Hemodialysis on a Tuesday, and Tuesday schedule (4) Hypertensive chronic kidney disease with stage 5 chronic kidney disease or end stage renal disease Current Visit: No Status: Chronic Plan to address problem: Follow-up blood pressure on current medications (5) Type 2 diabetes mellitus with diabetic chronic kidney disease Current Visit: No Status: Chronic Qualifiers: Chronic kidney disease stage: on chronic dialysis Plan to address problem: Blood sugar management by primary attending Subjective Date of service: 09/20/19 Principal diagnosis: N/V Interval history: Patient seen lying in bed. She is feeling better. Pain is now controlled. Objective - Exam Narrative Exam: Middle aged -[place] female lying in bed in no acute distress HEENT: NCAT, pink oral mucous membrane Neck: Supple, no venous distention CVS: S1S2 RRR with no murmur, rub or gallop Chest: Clear to auscultation Abdomen: Protuberant, soft, nontender, no organomegaly, bowel sounds are present Extremities: Dressing in right Foot clean and dry, pigmentary changes, left bel ow knee amputation with healed stump clean and dry Neuro: Awake, alert no focal deficits - Vital Signs Vital signs: Vital Signs - 12hr 09/20/19 09/20/19 09/20/19 09:20 09:30 09:45 Temperature Pulse Rate 70 69 69 Respiratory Rate Blood Pressure 166/74 137/66 124/62 O2 Sat by Pulse Oximetry 09/20/19 09/20/19 09/20/19 10:00 10:15 10:30 Temperature Pulse Rate 68 69 69 Respiratory Rate Blood Pressure 121/60 114/57 117/62 O2 Sat by Pulse Oximetry 09/20/19 09/20/19 09/20/19 10:45 11:00 11:15 Temperature Pulse Rate 67 63 68 Respiratory Rate Blood Pressure 117/56 107/57 122/60 O2 Sat by Pulse Oximetry 09/20/19 09/20/19 09/20/19 11:30 11:45 12:00 Temperature Pulse Rate 68 69 70 Respiratory Rate Blood Pressure 122/59 107/51 123/60 O2 Sat by Pulse Oximetry 09/20/19 09/20/19 09/20/19 12:15 12:48 19:36 Temperature 98.4 F 97.9 F Pulse Rate 70 73 64 Respiratory 18 18 Rate Blood Pressure 116/57 134/69 109/51 O2 Sat by Pulse 100 Oximetry - Lab 09/20/19 06:41 09/20/19 06:41 Most recent lab results Calcium 8.9 mg/dL (8.4-10.2) 09/20/19 06:41 Medications & Allergies - Medications Allergies/Adverse Reactions: Allergies amlodipine Allergy (Verified 04/20/19 11:49) Itching losartan Allergy (Verified 04/20/19 11:49) Itching sulfamethoxazole [From Bactrim] Allergy (Verified 04/20/19 11:49) Rash trimethoprim [From Bactrim] Allergy (Verified 04/20/19 11:49) Rash morphine Adverse Reaction (Verified 04/20/19 11:49) Vomiting Home Medications: Home Medications Medication Instructions Recorded Confirmed Last Taken Type Ascorbic Acid [Vitamin C] 500 mg PO BID #14 tablet 07/13/19 09/13/19 Unknown Rx Epoetin Jacoby 10,000 Unit [Procrit] 5,000 unit IV FRANCOIS PRN vial 07/13/19 09/13/19 Unknown Rx Ferrous Sulfate [Feosol 325 MG tab] 325 mg PO BID #14 tablet 07/13/19 09/13/19 Unknown Rx Folic Acid [Folvite] 1 mg PO QDAY #7 tablet 07/13/19 09/13/19 Unknown Rx Gabapentin 100 mg PO BID #60 capsule 07/13/19 09/13/19 Unknown Rx Insulin Glargine [Lantus VIAL] 15 units SUB-Q QHS 30 Days units 07/13/19 09/13/19 Unknown Rx Lispro Insulin [HumaLOG] See Protocol SUB-Q ACHS 30 Days 07/13/19 09/13/19 Unknown Rx units Metoclopramide [Reglan TAB] 5 mg PO ACHS 30 Days tablet 07/13/19 09/13/19 Unknown Rx Metoprolol [Lopressor TAB] 100 mg PO BID #60 tablet 07/13/19 09/13/19 Unknown Rx NIFEdipine XL [Procardia Xl] 60 mg PO QDAY #30 tablet 07/13/19 09/13/19 Unknown Rx Polyethylene Glycol 3350 [Miralax 17 gm PO QDAY 30 Days powd.pack 07/13/19 09/13/19 Unknown Rx 3350] Torsemide [Demadex] 60 mg PO DAILY 30 Days tablet 07/13/19 09/13/19 Unknown Rx Zolpidem [Ambien] 5 mg PO QHS PRN #15 tablet 07/13/19 09/13/19 Unknown Rx cloNIDine [Catapres] 0.1 mg PO Q12H PRN #60 tablet 07/13/19 09/13/19 Unknown Rx hydrALAZINE [Apresoline TAB] 100 mg PO Q8HR #90 tab 07/13/19 09/13/19 Unknown Rx oxyCODONE [roxiCODONE] 5 mg PO Q4H PRN #20 tablet 07/13/19 09/13/19 Unknown Rx Active Medications: Generic Name Dose Route Start Last Admin Trade Name Freq PRN Reason Stop Dose Admin Acetaminophen 650 mg 09/13/19 05:02 09/19/19 09:07 Tylenol PO 650 mg Q4H PRN Administration Pain MILD(1-3)/Fever >100.5/CASTILLO Albumin Human 25 gm 09/13/19 13:06 Alburx 25% (Albumin) IV FRANCOIS PRN Hypotension Ascorbic Acid 500 mg 09/16/19 22:00 09/20/19 13:52 Vitamin C PO 500 mg BID FATMATA Administration Benzonatate 100 mg 09/19/19 22:00 09/20/19 13:51 Tessalon Perles PO 100 mg Q8HR FATMATA Administration Clonidine HCl 0.1 mg 09/16/19 12:40 09/20/19 13:51 Catapres PO 0.1 mg Q12H PRN Administration SBP > 160 Dextrose 50 ml 09/13/19 06:10 D50w (25gm) Syringe IV Q30MIN PRN Hypoglycemia Protocol Epoetin Jacoby 10,000 unit 09/13/19 13:06 09/18/19 12:15 Procrit SUB-Q 10,000 unit FRANCOIS PRN Administration hemodialysis Ferrous Sulfate 325 mg 09/16/19 22:00 09/20/19 13:51 Feosol PO 325 mg BID FATMATA Administration Folic Acid 1 mg 09/17/19 10:00 09/20/19 13:51 Folvite PO 1 mg QDAY FATMATA Administration Gabapentin 100 mg 09/16/19 22:00 09/20/19 13:51 Gabapentin PO 100 mg BID FATMATA Administration Guaifenesin 600 mg 09/18/19 23:00 09/20/19 13:51 Mucinex Er PO 600 mg BID FATMATA Administration Heparin Sodium (Porcine) 5,000 unit 09/13/19 22:00 09/20/19 13:44 Heparin SUB-Q Not Given Q12HR [facility] Hydralazine HCl 100 mg 09/16/19 14:00 09/20/19 13:51 Apresoline PO 100 mg Q8HR FATMATA Administration Sodium Chloride 100 mls @ 999 mls/hr 09/13/19 13:06 Nacl 0.9% IV FRANCOIS PRN Hypotension Cefazolin Sodium 1 gm in 50 mls @ 100 mls/hr 09/19/19 20:00 09/19/19 22:40 Ancef/Ns 1 Gm/50 Ml IV 100 mls/hr Q24H FATMATA Administration Protocol Insulin Glargine 8 units 09/16/19 22:00 09/19/19 22:27 Lantus SUB-Q 8 units QHS FATMATA Administration Insulin Human Regular 0 units 09/13/19 07:30 09/20/19 17:04 Humulin R SUB-Q 4 units ACHS [facility] Administration Protocol Lorazepam 0.5 mg 09/18/19 22:45 09/20/19 08:56 Ativan PO 0.5 mg DAILY PRN Administration Anxiety Magnesium Hydroxide 30 ml 09/13/19 05:02 Milk Of Magnesia PO Q4H PRN Constipation Metoprolol Tartrate 100 mg 09/16/19 22:00 09/20/19 13:52 Metoprolol PO 100 mg BID FATMATA Administration Nifedipine 60 mg 09/16/19 13:00 09/20/19 13:51 Procardia Xl PO 60 mg QDAY FATMATA Administration Ondansetron HCl 4 mg 09/13/19 05:02 09/16/19 04:29 Zofran IV 4 mg Q8H PRN Administration Nausea And Vomiting Oxycodone/Acetaminophen 1 tab 09/18/19 22:43 09/20/19 12:00 Percocet 5/325 PO 1 tab Q6H PRN Administration Pain, Moderate (4-6) Pantoprazole Sodium 40 mg 09/19/19 10:00 09/20/19 13:52 Protonix PO 40 mg DAILY FATMATA Administration Sodium Chloride 10 ml 09/13/19 10:00 09/20/19 11:39 Sodium Chloride Flush Syringe 10 Ml IV Not Given BID FATMATA Sodium Chloride 10 ml 09/13/19 05:02 09/16/19 04:31 Sodium Chloride Flush Syringe 10 Ml IV 10 ml PRN PRN Administration LINE FLUSH Sodium Hypochlorite 1 applic 09/20/19 15:00 09/20/19 15:57 Dakin's Half Strength TP Not Given BID FATMATA Torsemide 60 mg 09/17/19 10:00 09/20/19 13:51 Demadex PO 60 mg QDAY FATMATA Administration Zolpidem Tartrate 5 mg 09/16/19 12:40 09/19/19 22:18 Ambien PO 5 mg QHS PRN Administration Sleep
[2019-09-20] MEDS: ZOLPIDEM 5 MG TAB PO PRN (22:10)
[2019-09-20] MEDS: INSULIN GLARGINE 100 UNITS/ML SUB-Q SCH (23:20)
[2019-09-21] MEDS: hydrALAZINE 100 MG TAB PO SCH ×2 (05:03→14:57)
[2019-09-21] MEDS: BENZONATATE 100 MG CAP PO SCH ×2 (05:03→14:56)
[2019-09-21] MEDS: oxyCODONE /ACETAMINOPHEN 5-325MG TAB PO PRN (05:21)
[2019-09-21] MEDS: INSULIN REGULAR, HUMAN 100 UNITS/1 ML SUB-Q SCH ×3 (08:32→17:57)
[2019-09-21] MEDS: GABAPENTIN 100 MG CAP PO SCH (09:02)
[2019-09-21] MEDS: FERROUS SULFATE 325 MG TAB PO SCH (09:02)
[2019-09-21] MEDS: FOLIC ACID 1 MG TAB PO SCH (09:02)
[2019-09-21] MEDS: guaiFENesin ER 600 MG TAB PO SCH (09:02)
[2019-09-21] MEDS: NIFEdipine XL 60 MG TAB PO SCH (09:03)
[2019-09-21] MEDS: METOPROLOL TARTRATE 100 MG TAB PO SCH (09:03)
[2019-09-21] MEDS: ASCORBIC ACID 500 MG TAB PO SCH (09:03)
[2019-09-21] MEDS: TORSEMIDE 10 MG TAB PO SCH (09:07)
[2019-09-21] MEDS: SODIUM HYPOCHLORITE, DAKIN'S 1/2 STRENGTH (0.25%) 473 ML TOPICAL SOLN TP SCH (09:08)
[2019-09-21] MEDS: HEPARIN 5,000 UNIT/1 ML VIAL SUB-Q SCH (09:08)
[2019-09-21] MEDS: PANTOPRAZOLE 40 MG TAB PO SCH (09:13)
--- NOTE | 2019-09-21 11:37 | Consultation ---
History of Present Illness - Reason for Consult Consult date: 09/21/19 right heel ulcer - History of Present Illness HPI: 54yo female with with multiple medical problems including severe PVD s/p left BKA and recently right lower extremity angiogram with intervention for attempted limb salvage. The patient is followed closely by wound care with multiple debridements and hyperbaric treatments. The patient has been recommended primary amputation for persistent poor healing but has refused. Patient with no complaints this morning. ROS: as per HPI PE: NAD A&Ox3 non-labored respirations RRR Left BKA stump well healed Right foot dressing clean and dry, heel ulcer photo reviewed which demonstrates extensive tissue loss arterial studies reviewed Plan: Patient with limited options and at significant risk for limb loss Unlikely further arterial interventions to prevent limb loss However patient not ready for primary amputation Explained to patient that I am willing to perform diagnostic angiogram to evaluate perfusion Patient does not want to stay in the hospital for this procedure and would like to follow-up in clinic Patient given clinic appointment for next week 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, left arm AV fistula placement) Family history: diabetes, hypertension (Sister has hypertension) Medications and Allergies Allergies Allergy/AdvReac Type Severity Reaction Status Date / Time amlodipine Allergy Itching Verified 04/20/19 11:49 losartan Allergy Itching Verified 04/20/19 11:49 sulfamethoxazole Allergy Rash Verified 04/20/19 11:49 [From Bactrim] trimethoprim [From Bactrim] Allergy Rash Verified 04/20/19 11:49 morphine AdvReac Vomiting Verified 04/20/19 11:49 Home Medications Medication Instructions Recorded Confirmed Last Taken Type Ascorbic Acid [Vitamin C] 500 mg PO BID #14 tablet 07/13/19 09/13/19 Unknown Rx Epoetin Jacoby 10,000 Unit [Procrit] 5,000 unit IV FRANCOIS PRN vial 07/13/19 09/13/19 Unknown Rx Ferrous Sulfate [Feosol 325 MG tab] 325 mg PO BID #14 tablet 07/13/19 09/13/19 Unknown Rx Folic Acid [Folvite] 1 mg PO QDAY #7 tablet 07/13/19 09/13/19 Unknown Rx Gabapentin 100 mg PO BID #60 capsule 07/13/19 09/13/19 Unknown Rx Insulin Glargine [Lantus VIAL] 15 units SUB-Q QHS 30 Days units 07/13/19 09/13/19 Unknown Rx Lispro Insulin [HumaLOG] See Protocol SUB-Q ACHS 30 Days 07/13/19 09/13/19 Unknown Rx units Metoclopramide [Reglan TAB] 5 mg PO ACHS 30 Days tablet 07/13/19 09/13/19 Unknown Rx Metoprolol [Lopressor TAB] 100 mg PO BID #60 tablet 07/13/19 09/13/19 Unknown Rx NIFEdipine XL [Procardia Xl] 60 mg PO QDAY #30 tablet 07/13/19 09/13/19 Unknown Rx Polyethylene Glycol 3350 [Miralax 17 gm PO QDAY 30 Days powd.pack 07/13/19 09/13/19 Unknown Rx 3350] Torsemide [Demadex] 60 mg PO DAILY 30 Days tablet 07/13/19 09/13/19 Unknown Rx Zolpidem [Ambien] 5 mg PO QHS PRN #15 tablet 07/13/19 09/13/19 Unknown Rx cloNIDine [Catapres] 0.1 mg PO Q12H PRN #60 tablet 07/13/19 09/13/19 Unknown Rx hydrALAZINE [Apresoline TAB] 100 mg PO Q8HR #90 tab 07/13/19 09/13/19 Unknown Rx oxyCODONE [roxiCODONE] 5 mg PO Q4H PRN #20 tablet 07/13/19 09/13/19 Unknown Rx Active Meds: Active Medications Acetaminophen (Tylenol) 650 mg PO Q4H PRN PRN Reason: Pain MILD(1-3)/Fever >100.5/CASTILLO Last Admin: 09/19/19 09:07 Dose: 650 mg Documented by: Albumin Human (Alburx 25% (Albumin)) 25 gm IV FRANCOIS PRN PRN Reason: Hypotension Ascorbic Acid (Vitamin C) 500 mg PO BID [facility] Last Admin: 09/21/19 09:03 Dose: 500 mg Documented by: Benzonatate (Tessalon Perles) 100 mg PO Q8HR [facility] Last Admin: 09/21/19 05:03 Dose: 100 mg Documented by: Clonidine HCl (Catapres) 0.1 mg PO Q12H PRN PRN Reason: SBP > 160 Last Admin: 09/20/19 13:51 Dose: 0.1 mg Documented by: Dextrose (D50w (25gm) Syringe) 50 ml IV Q30MIN PRN; Protocol PRN Reason: Hypoglycemia Epoetin Jacoby (Procrit) 10,000 unit SUB-Q FRANCOIS PRN PRN Reason: hemodialysis Last Admin: 09/18/19 12:15 Dose: 10,000 unit Documented by: Ferrous Sulfate (Feosol) 325 mg PO BID [facility] Last Admin: 09/21/19 09:02 Dose: 325 mg Documented by: Folic Acid (Folvite) 1 mg PO QDAY [facility] Last Admin: 09/21/19 09:02 Dose: 1 mg Documented by: Gabapentin (Gabapentin) 100 mg PO BID [facility] Last Admin: 09/21/19 09:02 Dose: 100 mg Documented by: Guaifenesin (Mucinex Er) 600 mg PO BID [facility] Last Admin: 09/21/19 09:02 Dose: 600 mg Documented by: Heparin Sodium (Porcine) (Heparin) 5,000 unit SUB-Q Q12HR [facility] Last Admin: 09/21/19 09:08 Dose: Not Given Documented by: Hydralazine HCl (Apresoline) 100 mg PO Q8HR [facility] Last Admin: 09/21/19 05:03 Dose: 100 mg Documented by: Sodium Chloride (Nacl 0.9%) 100 mls @ 999 mls/hr IV FRANCOIS PRN PRN Reason: Hypotension Cefazolin Sodium (Ancef/Ns 1 Gm/50 Ml) 1 gm in 50 mls @ 100 mls/hr IV Q24H [facility]; Protocol Stop: 10/07/19 23:59 Last Admin: 09/20/19 21:00 Dose: 100 mls/hr Documented by: Insulin Glargine (Lantus) 8 units SUB-Q QHS [facility] Last Admin: 09/20/19 23:20 Dose: 8 units Documented by: Insulin Human Regular (Humulin R) 0 units SUB-Q ACHS [facility]; Protocol Last Admin: 09/21/19 08:32 Dose: 2 units Documented by: Lorazepam (Ativan) 0.5 mg PO DAILY PRN PRN Reason: Anxiety Last Admin: 09/20/19 08:56 Dose: 0.5 mg Documented by: Magnesium Hydroxide (Milk Of Magnesia) 30 ml PO Q4H PRN PRN Reason: Constipation Metoprolol Tartrate (Metoprolol) 100 mg PO BID [facility] Last Admin: 09/21/19 09:03 Dose: 100 mg Documented by: Nifedipine (Procardia Xl) 60 mg PO QDAY [facility] Last Admin: 09/21/19 09:03 Dose: 60 mg Documented by: Ondansetron HCl (Zofran) 4 mg IV Q8H PRN PRN Reason: Nausea And Vomiting Last Admin: 09/16/19 04:29 Dose: 4 mg Documented by: Oxycodone/Acetaminophen (Percocet 5/325) 1 tab PO Q6H PRN PRN Reason: Pain, Moderate (4-6) Last Admin: 09/21/19 05:21 Dose: 1 tab Documented by: Pantoprazole Sodium (Protonix) 40 mg PO DAILY [facility] Last Admin: 09/21/19 09:13 Dose: 40 mg Documented by: Sodium Chloride (Sodium Chloride Flush Syringe 10 Ml) 10 ml IV BID [facility] Last Admin: 09/21/19 09:08 Dose: 10 ml Documented by: Sodium Chloride (Sodium Chloride Flush Syringe 10 Ml) 10 ml IV PRN PRN PRN Reason: LINE FLUSH Last Admin: 09/16/19 04:31 Dose: 10 ml Documented by: Sodium Hypochlorite (Dakin's Half Strength) 1 applic TP BID [facility] Last Admin: 09/21/19 09:08 Dose: 1 ampul Documented by: Torsemide (Demadex) 60 mg PO QDAY [facility] Last Admin: 09/21/19 09:07 Dose: 60 mg Documented by: Zolpidem Tartrate (Ambien) 5 mg PO QHS PRN PRN Reason: Sleep Last Admin: 09/20/19 22:10 Dose: 5 mg Documented by: Exam - Constitutional Vitals: Temp Pulse Resp BP Pulse Ox 98.3 F 64 18 130/62 99 09/21/19 08:01 09/21/19 09:03 09/21/19 08:01 09/21/19 09:03 09/21/19 08:01 Results - Labs CBC & Chem 7: 09/20/19 06:41 09/20/19 06:41 Labs: Abnormal lab results 09/20/19 09/20/19 09/21/19 Range/Units 16:38 22:49 08:09 POC Glucose 282 H 305 H 154 H (70-105)
[2019-09-21 12:15] VITALS: BP 133/64
--- NOTE | 2019-09-21 13:23 | Discharge Summary ---
Providers - Providers Date of Admission: 09/13/19 06:18 Date of discharge: 09/21/19 Attending physician: MAGALI WEST 09/13/19 04:16 Consult to Physician [CONS] Routine Comment: Consulting Provider: MERLE TAO Physician Instructions: Reason For Exam: dialysis 09/13/19 06:12 Consult to Wound/ET Nurse [CONS] Routine Reason For Exam: wound eval right foot 09/14/19 14:30 Physical Therapy Evaluation and Treat [CONS] Routine Comment: Reason For Exam: placement 09/16/19 12:31 Consult to Physician [CONS] Routine Comment: Consulting Provider: MELISA BROWN Physician Instructions: Reason For Exam: persistent nausea and poor appetite 09/17/19 15:39 Consult to Physician [CONS] Routine Comment: Consulting Provider: ANSHUL HAN Physician Instructions: Reason For Exam: abx recommendation 09/20/19 16:01 Consult to Physician [CONS] Routine Comment: Consulting Provider: JOCELINE ROWELL Physician Instructions: Reason For Exam: Right foot ulcer 09/20/19 16:03 Consult to Physician [CONS] Routine Comment: Consulting Provider: DAVID WESTON Physician Instructions: Reason For Exam: PAD right leg 09/20/19 16:05 Consult to Case Management [CONS] Stat Services Needed at Discharge: Other Notified:: professional programmer 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 Additional Physician Instructions: [facility] Please infuse cefazolin 2 gm IV after HD on Tuesday, 2 gm IV after HD on Tuesday and 3 gm IV after HD on Tuesday for 3 weeks until Oct 07, 2019 Diagnosis: left heel severe soft tissue infection due to MSSA/E coli Labs: CBC, AST, ALT, CRP, creatinine q tuesday fax labs to [phone] Dr Moore [facility] Condition: Stable Pertinent studies: MPI stress test CXR Abdomen/pelvis CT Paracentesis duplex LE Hospital course: Brief History: 54-year-old -Malag[place] female with known history of end-stage renal disease on dialysis Tuesdays and Saturdays, history of diabetes mellitus with a chronic right heel ulcer and history of hypertension presenting to the emergency room complaining of nausea and vomiting with associated abdominal pain and Infected Diabetic ulcer of heel. had normal stress test, s/p debridement at bedside. placed on PPI, advanced diet, as needed reglan. Discharged home with iv abx in stable condition per ID recommendation. Discharge diagnosis: / Nausea & vomiting and abdominal pain Probably secondary to gastroparesis placed on IV Zofran as needed, IV Reglan scheduled along with ativan and PPI therapy Consulted GI as symptom persisted -medical Mx for now appreciated recommendation /Ascites with volume overload -s/p paracentesis drained 1900 cc fluid / Left bundle branch block (LBBB) with elevated troponin Patient denies any chest pain at this time. EKG findings and elevated troponin discussed with the on-call paper and prints restorer by the ER physician. Status post stress test - which is normal Echo reviewed - EF 45-50%, pseudonormalization, CE elevation pattern appears c/w NSTEMI type II. No plans for additional cardiac w/u at this time. /Infected Diabetic ulcer of heel, chronic nonhealing s/p bedside debridement by Dr. Rowell Patient was recommended amputation in the past and during this admission but she refused consulted to wound care team for evaluation and management wound cx gowing proteus anf MSSA, ID consulted for abx recommendation d/c on cefazolin 2 gm IV after HD on Tuesday, 2 gm IV after HD on Tuesday and 3 gm IV after HD on Tuesday for 3 weeks until Oct 07, 2019. / Diabetes type II on insulin monitored with Accu-Cheks, continued routine home medications. / End-stage renal disease on hemodialysis Patient is on dialysis Tuesday, and Saturdays. consulted nephrology for dialysis during this admission /SIRS vs sepsis likely from chronic diabetic wound, will cont abx, / HTN (hypertension), uncontrolled resumed routine home medications and monitored vital signs closely. adjusted medications as needed / DVT prophylaxis Patient placed on subcu to heparin / Full code status Disposition: Home with home health with iv abx Hospitalist Physical exam: GENERAL: Elderly -Malagasy female lying on bed appeared to be chronically ill HEENT: Normocephalic. Atraumatic. No conjunctival congestion or icterus. Patient has moist mucous membranes. NECK: Supple. Trachea midline. CHEST/LUNGS: Clear to auscultated bilaterally, breathing nonlabored. No wheezes crackles or rhonchi. HEART/CARDIOVASCULAR: Regular in rate and rhythm. S1 and S2 positive. ABDOMEN: Abdomen is soft, nontender, distended. Patient has normal bowel sounds. SKIN: There is no rash. Warm and dry. NEURO: No focal motor deficit. Follows command. MUSCULOSKELETAL: No joint effusion or tenderness. EXTRIMITY: Right foot with wound dressing, left AKA PSYCH: Cooperative. Disposition: DC/TX-06 HOME UNDER HOME HL Time spent for discharge: 34 minutes Core Measure Documentation - Palliative Care Palliative Care/ Comfort Measures: Not Applicable - Core Measures Any of the following diagnoses?: history only Exam - Constitutional Vitals: Temp Pulse Resp BP Pulse Ox 98.3 F 62 16 133/64 100 09/21/19 12:11 09/21/19 12:11 09/21/19 12:11 09/21/19 12:11 09/21/19 12:11 Plan Activity: advance as tolerated Weight Bearing Status: Weight Bear as Tolerated Diet: diabetic, renal Wound: per wound nurse instructions Special Instructions: record blood sugar diary Additional Instructions: Continue on cefazolin 2 gm IV after HD on Tuesday, 2 gm IV after HD on Tuesday and 3 gm IV after HD on Tuesday for 3 weeks until Oct 07, 2019. F/u with vascular surgeon and Dr Rowell at wound care clinic in one week. Follow up with: DEISY CHUSUFFIELD MD ELIZABETH [Primary Care Provider] - 3-5 Days MARIKA RAYGOZA MD [Staff Physician] - 7 Days Prescriptions: Sodium Hypochlorite [Dakin's Half Strength] 1 applic TP BID #1 bottle Hydrocortisone 0.5% [Hydrocortisone 0.5% CREAM] 1 applicatio TP TID #1 tube Pantoprazole [Protonix TAB] 40 mg PO DAILY #30 tablet
[2019-09-21] MEDS ORDERED: HYDROCORTISONE 1% CREAM 28.4GM TP PRN (13:31)
--- NOTE | 2019-09-21 17:08 | Progress Note ---
Assessment and Plan Cultures: Blood culture 09/16/2019 no growth so far. Wound culture 09/16/2019 Proteus and MSSA Previous left foot wound grew MDR Enterobacter and E faecalis Assessment: 54 y/o female with history of ESRD on HD M/W/F, HTN, Insulin-dependent diabetes, ascitis requiring paracentesis in the past from ESRD, previous pancreatitis, known to us from previous hospitalization in March 2019 and May 2019 with left foot diabetic heel necrotic ulcer s/p BKA on 06/27/2019 readmitted on 09/12/2019 due to abdominal pain and N/V found to have a worsening right heel wound: 1) Right heel non healing necrotic wound: Patient has a chronic right heel necrotic ulcer follows with Wound care Dr Rowell for this. She underwent debridement of necrotic SQ, muscle and fascia from right foot and heel on 09/13/2019. Recent outpatient MRI right foot in July 2019 shows large heel ulcer with cellulitis/myositis but no osteomyelitis. Wound culture 09/16/2019 with Proteus and MSSA. Arterial doppler is abnormal. 2) Leukocytosis: not better likely due to #1 Recs: seen vascular surgery continue cefazolin renally adjusted - Proteus is sensitive to 1st gen cephalosporins risk for amputation explained, refused adamantly amputation anticipate to d/c on cefazolin 2 gm IV after HD on Tuesday, 2 gm IV after HD on Tuesday and 3 gm IV after HD on Tuesday for 3 weeks until Oct 07, 2019. Order sent to behavioral health case manager ID clinic f/u in 2-3 weeks will sign off April Segovia MD Infectious Diseases Waiter/Waitress [employer] [facility] M [phone] O [phone] Subjective Date of service: 09/21/19 Principal diagnosis: N/V Interval history: Feels ok, no complaints. No fever. Objective - Exam Narrative Exam: Constitutional: Alert, cooperative. No acute distress Head, Ears, Nose: Normocephalic, atraumatic. External ears, nose normal Eyes: Conjunctivae/corneas clear. No icterus. No ptosis. Neck: Supple, no meningeal signs Oral: dentition fair, no thrush Cardiovascular: S1, S2 normal. Respiratory: Good air entry, clear to auscultation bilaterally GI: Soft, non-tender; uterus Musculoskeletal: right heel large wound with copious slough Skin: No rash or abscess Hem/Lymphatic: No palpable cervical or supraclavicular nodes. No lymphangitis Psych: Mood ok. Affect normal Neurological: Awake, alert, oriented. No gross abnormality - Constitutional Vitals: Vital Signs Temp Pulse Resp BP Pulse Ox 98.3 F 62 16 133/64 100 09/21/19 12:11 09/21/19 12:11 09/21/19 12:11 09/21/19 12:11 09/21/19 12:11 Temperature -Last 24 Hours Temperature 98.3 F Temperature 98.3 F Temperature 98.2 F Temperature 98.0 F Temperature 97.9 F - Labs CBC & Chem 7: 09/20/19 06:41 09/20/19 06:41 Labs: Abnormal lab results 09/20/19 09/20/19 09/21/19 Range/Units 16:38 22:49 08:09 POC Glucose 282 H 305 H 154 H (70-105)
== END 2019-09-21 17:55 | disposition home health service (06) | DRG 40 ==
LOC: ED 23:30 → 4A 09-13 06:18
PROVIDERS: ADMIT Internal Medicine Geriatric Medicine; ATTEND Internal Medicine
PROC: 0KBV0ZZ Excision of Right Foot Muscle, Open Approach (ICD-10-PCS; principal; 2019-09-13)
PROC: 5A1D70Z Performance of Urinary Filtration, Intermittent, Less than 6 Hours Per Day (ICD-10-PCS; 2019-09-13)
PROC: 0W9G3ZZ Drainage of Peritoneal Cavity, Percutaneous Approach (ICD-10-PCS; 2019-09-14)
PROC: 5A1D70Z Performance of Urinary Filtration, Intermittent, Less than 6 Hours Per Day (ICD-10-PCS; 2019-09-15)
PROC: 5A1D70Z Performance of Urinary Filtration, Intermittent, Less than 6 Hours Per Day (ICD-10-PCS; 2019-09-18)
PROC: 5A1D70Z Performance of Urinary Filtration, Intermittent, Less than 6 Hours Per Day (ICD-10-PCS; 2019-09-20)
DX: E11.43 Type 2 diabetes mellitus with diabetic autonomic (poly)neuropathy (principal); I21.A1 Myocardial infarction type 2; N18.6 End stage renal disease; R65.10 Systemic inflammatory response syndrome (SIRS) of non-infectious origin without acute organ dysfunction; L97.429 Non-pressure chronic ulcer of left heel and midfoot with unspecified severity; R18.8 Other ascites; I12.0 Hypertensive chronic kidney disease with stage 5 chronic kidney disease or end stage renal disease; E11.621 Type 2 diabetes mellitus with foot ulcer; K80.20 Calculus of gallbladder without cholecystitis without obstruction; I44.7 Left bundle-branch block, unspecified; K31.84 Gastroparesis; D63.1 Anemia in chronic kidney disease; Z96.651 Presence of right artificial knee joint; B95.61 Methicillin susceptible Staphylococcus aureus infection as the cause of diseases classified elsewhere; E11.22 Type 2 diabetes mellitus with diabetic chronic kidney disease; Z99.2 Dependence on renal dialysis; Z83.3 Family history of diabetes mellitus; Z82.49 Family history of ischemic heart disease and other diseases of the circulatory system; Z88.5 Allergy status to narcotic agent; Z88.2 Allergy status to sulfonamides; Z88.8 Allergy status to other drugs, medicaments and biological substances; Z79.899 Other long term (current) drug therapy; Z79.4 Long term (current) use of insulin; Z89.512 Acquired absence of left leg below knee; Z95.828 Presence of other vascular implants and grafts; Z87.891 Personal history of nicotine dependence
CPT/HCPCS: 36415; 49083; 71045; 74176; 78452; 80048; 80053; 80061; 80074; 82962; 83690; 84484; 85007; 85025; 85027; 85610; 85730; 87040; 87076; 87116; 87186; 93005; 93010; 93017; 93306; 96374; G0378; A6250; A6260; A9502; C9113; J0690; J0692; J0885; J1644; J1815; J2060; J2405; J2543; J2765; J2785; J3370; J7030; J7050

== ENCOUNTER 2019-09-26 15:41 | Emergency (ER) | payer MEDICARE, OTHER ==
--- NOTE | 2019-09-26 16:04 | Emergency Department Report ---
ED General Adult HPI - General Chief complaint: Medical Clearance Stated complaint: NEEDS DIALYSIS Time Seen by Provider: 09/26/19 15:52 Source: patient, EMS ( EMS documentation not available at time of chart dictation ), RN notes reviewed, old records reviewed Mode of arrival: Stretcher Limitations: Physical Limitation - History of Present Illness Initial comments: Primary care doctor: [facility] Nephrology: Dr. Weir Vascular surgery: Dr. Hector Spencer Past medical history: End-stage renal disease, on hemodialysis, Tuesday, Tuesday, Tuesday, hypertension, peripheral artery disease, left bundle branch block, type 2 diabetes, chronic elevated troponin, peripheral artery disease, status post angiogram this morning. The patient is sent to the emergency room by her marking clerk for admission for urgent/emergent dialysis. Patient had an angiogram as an outpatient earlier on this morning, and was not able to make her scheduled dialysis time. It is currently the day before , and the patient will not be able to receive hemodialysis tomorrow as an outpatient as the dialysis Center will not be open. The patient denies new or different complaints. She indicates that if not referred to the emergency room, she would not have presented. She denies new or different physical pain. As per review of old discharge summary, she is supposed to be on cefazolin 2 g IV Tuesday, after hemodialysis, for lower heel soft tissue infection. Improves with: none Worsens with: none Associated Symptoms: denies other symptoms - Related Data Previous Rx's Medication Instructions Recorded Last Taken Type Ascorbic Acid [Vitamin C] 500 mg PO BID #14 tablet 07/13/19 Unknown Rx Epoetin Jacoby 10,000 Unit [Procrit] 5,000 unit IV FRANCOIS PRN vial 07/13/19 Unknown Rx Ferrous Sulfate [Feosol 325 MG tab] 325 mg PO BID #14 tablet 07/13/19 Unknown Rx Folic Acid [Folvite] 1 mg PO QDAY #7 tablet 07/13/19 Unknown Rx Gabapentin 100 mg PO BID #60 capsule 07/13/19 Unknown Rx Insulin Glargine [Lantus VIAL] 15 units SUB-Q QHS 30 Days units 07/13/19 Unknown Rx Lispro Insulin [HumaLOG] See Protocol SUB-Q ACHS 30 Days 07/13/19 Unknown Rx units Metoclopramide [Reglan TAB] 5 mg PO ACHS 30 Days tablet 07/13/19 Unknown Rx Metoprolol [Lopressor TAB] 100 mg PO BID #60 tablet 07/13/19 Unknown Rx NIFEdipine XL [Procardia Xl] 60 mg PO QDAY #30 tablet 07/13/19 Unknown Rx Polyethylene Glycol 3350 [Miralax 17 gm PO QDAY 30 Days powd.pack 07/13/19 Unknown Rx 3350] Torsemide [Demadex] 60 mg PO DAILY 30 Days tablet 07/13/19 Unknown Rx Zolpidem [Ambien] 5 mg PO QHS PRN #15 tablet 07/13/19 Unknown Rx cloNIDine [Catapres] 0.1 mg PO Q12H PRN #60 tablet 07/13/19 Unknown Rx hydrALAZINE [Apresoline TAB] 100 mg PO Q8HR #90 tab 07/13/19 Unknown Rx oxyCODONE [roxiCODONE] 5 mg PO Q4H PRN #20 tablet 07/13/19 Unknown Rx Hydrocortisone 0.5% 1 applicatio TP TID #1 tube 09/21/19 Unknown Rx [Hydrocortisone 0.5% CREAM] Pantoprazole [Protonix TAB] 40 mg PO DAILY #30 tablet 09/21/19 Unknown Rx Sodium Hypochlorite [Dakin's Half 1 applic TP BID #1 bottle 09/21/19 Unknown Rx Strength] Allergies Allergy/AdvReac Type Severity Reaction Status Date / Time amlodipine Allergy Itching Verified 09/26/19 16:04 losartan Allergy Itching Verified 09/26/19 16:04 sulfamethoxazole Allergy Rash Verified 09/26/19 16:04 [From Bactrim] trimethoprim [From Bactrim] Allergy Rash Verified 09/26/19 16:04 morphine AdvReac Vomiting Verified 09/26/19 16:04 ED Review of Systems ROS: Stated complaint: NEEDS DIALYSIS Other details as noted in HPI Constitutional: denies: fever ENT: denies: congestion Respiratory: denies: wheezing Cardiovascular: denies: syncope Gastrointestinal: denies: abdominal pain Genitourinary: denies: dysuria ED Past Medical Hx - Past Medical History Previous Medical History?: Yes Hx Hypertension: Yes Hx Congestive Heart Failure: No Hx Diabetes: Yes Hx Renal Disease: Yes (HD TTS) Hx Arthritis: Yes Hx Asthma: No Hx COPD: No Additional medical history: HLD, pancreatitis - Surgical History Past Surgical History?: Yes Additional Surgical History: Left arm Fistula, ERCP, right knee replacement; left BKA - Social History Smoking Status: Never Smoker Substance Use Type: None - Medications Home Medications: Home Medications Medication Instructions Recorded Confirmed Last Taken Type Ascorbic Acid [Vitamin C] 500 mg PO BID #14 tablet 07/13/19 09/13/19 Unknown Rx Epoetin Jacoby 10,000 Unit [Procrit] 5,000 unit IV FRANCOIS PRN vial 07/13/19 09/13/19 Unknown Rx Ferrous Sulfate [Feosol 325 MG tab] 325 mg PO BID #14 tablet 07/13/19 09/13/19 Unknown Rx Folic Acid [Folvite] 1 mg PO QDAY #7 tablet 07/13/19 09/13/19 Unknown Rx Gabapentin 100 mg PO BID #60 capsule 07/13/19 09/13/19 Unknown Rx Insulin Glargine [Lantus VIAL] 15 units SUB-Q QHS 30 Days units 07/13/19 09/13/19 Unknown Rx Lispro Insulin [HumaLOG] See Protocol SUB-Q ACHS 30 Days 07/13/19 09/13/19 Unknown Rx units Metoclopramide [Reglan TAB] 5 mg PO ACHS 30 Days tablet 07/13/19 09/13/19 Unknown Rx Metoprolol [Lopressor TAB] 100 mg PO BID #60 tablet 07/13/19 09/13/19 Unknown Rx NIFEdipine XL [Procardia Xl] 60 mg PO QDAY #30 tablet 07/13/19 09/13/19 Unknown Rx Polyethylene Glycol 3350 [Miralax 17 gm PO QDAY 30 Days powd.pack 07/13/19 09/13/19 Unknown Rx 3350] Torsemide [Demadex] 60 mg PO DAILY 30 Days tablet 07/13/19 09/13/19 Unknown Rx Zolpidem [Ambien] 5 mg PO QHS PRN #15 tablet 07/13/19 09/13/19 Unknown Rx cloNIDine [Catapres] 0.1 mg PO Q12H PRN #60 tablet 07/13/19 09/13/19 Unknown Rx hydrALAZINE [Apresoline TAB] 100 mg PO Q8HR #90 tab 07/13/19 09/13/19 Unknown Rx oxyCODONE [roxiCODONE] 5 mg PO Q4H PRN #20 tablet 07/13/19 09/13/19 Unknown Rx Hydrocortisone 0.5% 1 applicatio TP TID #1 tube 09/21/19 Unknown Rx [Hydrocortisone 0.5% CREAM] Pantoprazole [Protonix TAB] 40 mg PO DAILY #30 tablet 09/21/19 Unknown Rx Sodium Hypochlorite [Dakin's Half 1 applic TP BID #1 bottle 09/21/19 Unknown Rx Strength] ED Physical Exam - General Limitations: No Limitations General appearance: alert, in no apparent distress - Head Head exam: Present: atraumatic, normocephalic - Eye Eye exam: Present: normal appearance, EOMI. Absent: nystagmus - ENT ENT exam: Present: normal exam, normal orophraynx, mucous membranes moist, normal external ear exam - Neck Neck exam: Present: normal inspection, full ROM - Respiratory Respiratory exam: Present: normal lung sounds bilaterally. Absent: respiratory distress - Cardiovascular Cardiovascular Exam: Present: regular rate, normal rhythm, JVD. Absent: systolic murmur, diastolic murmur, rubs, gallop - GI/Abdominal GI/Abdominal exam: Present: soft. Absent: distended, tenderness, guarding, rebound, rigid, pulsatile mass - Extremities Exam Extremities exam: Present: normal inspection, full ROM, other (left lower extremity status post amputation. Left groin is found to have a pressure dressing in place. Bowling Ball Marker, escorted by nurse Vero) - Back Exam Back exam: Present: normal inspection - Neurological Exam Neurological exam: Present: alert, oriented X3, other (there is no facial droop. The tongue is midline. Extraocular movements are intact bilaterally. Patient speaking in full complete sentences. Shoulder shrug is intact bilaterally. Hearing is grossly intact bilaterally. Visual acuity intact to finger counting and color perception at a close distance. 5/5 strength 4 extremities. Sensation intact to light touch in 4 extremities.) - Psychiatric Psychiatric exam: Present: normal affect, normal mood - Skin Skin exam: Present: warm, other (the right lower extremity wound is wrapped, and nontender.). Absent: rash ED Course Vital Signs 09/26/19 15:50 Temperature 97.7 F Pulse Rate 69 Respiratory 12 Rate Blood Pressure 185/85 O2 Sat by Pulse 100 Oximetry - Reevaluation(s) Reevaluation #1: 09/26/19 16:11 Differential diagnosis, including not limited to: End-stage renal disease, dialysis dependent, status post contrast injection Assessment and plan: 54-year-old female who is supposed to receive outpatient h emodialysis today, after receiving IV contrast for angiogram, not currently having any symptoms, who was sent to the emergency room by her marking clerk for hemodialysis, as the outpatient dialysis center is not able to accommodate the patient In addition, it is a holiday tomorrow, Thanks, and the hemodialysis center will be closed, as per discussion with her marking clerk, Dr. Weir. He r ecommends admission for hemodialysis. Hospital physician is paged to arrange admission. Reevaluation #2: 09/26/19 17:07 patient went to hemodialysis prior to laboratory studies being drawn. Hospital physician, Dr Hector Chase. accepted patient to the medical service for hemodialysis. We will defer to the inpatient team to follow up on laboratory studies. ED Medical Decision Making - Lab Data Vital Signs 09/26/19 15:50 Temperature 97.7 F Pulse Rate 69 Respiratory 12 Rate Blood Pressure 185/85 O2 Sat by Pulse 100 Oximetry Critical care attestation.: If time is entered above; I have spent that time in minutes in the direct care of this critically ill patient, excluding procedure time. ED Disposition Clinical Impression: ESRD (end stage renal disease), Status post angiography of extremity Disposition: 09 OP ADMIT IP TO THIS HOSP Is pt being admited?: Yes Condition: Good Referrals: PRIMARY CARE, [Primary Care Provider] - 3-5 Days
[2019-09-26] MEDS ORDERED: SODIUM CHLORIDE 0.9% 100 ML IV PRN (16:24)
[2019-09-26 17:37] LABS: Calcium 9.3 mg/dL (8.4-10.2)
[2019-09-26] MEDS ORDERED: oxyCODONE /ACETAMINOPHEN 5-325MG TAB PO PRN (18:18)
[2019-09-26] MEDS ORDERED: ONDANSETRON 4 MG/2 ML INJ IV PRN (18:18)
[2019-09-26] MEDS ORDERED: HYDROmorphone 1 MG/1 ML INJ IV PRN (18:18)
[2019-09-26] MEDS ORDERED: ACETAMINOPHEN 325 MG TAB PO PRN (18:18)
[2019-09-26] MEDS ORDERED: ZOLPIDEM 5 MG TAB PO PRN (18:20)
[2019-09-26] MEDS ORDERED: oxyCODONE 5 MG TAB PO PRN (18:20)
[2019-09-26] MEDS ORDERED: cloNIDine 0.1 MG TAB PO PRN (18:20)
--- NOTE | 2019-09-26 18:30 | Event Note ---
Date: 09/26/19 See history and physical in the reports See discharge summary in the reports Patient missed dialysis because of a procedure Tomorrow is Thanksgiving and her next dialysis schedule is on Tuesday Patient had emergent hemodialysis today Symptomatically better Being discharged after the hemodialysis
[2019-09-26] MEDS ORDERED: PANTOPRAZOLE 40 MG TAB PO SCH (19:00)
[2019-09-26] MEDS ORDERED: NIFEdipine XL 60 MG TAB PO SCH (19:00)
--- NOTE | 2019-09-26 19:11 | History and Physical Report ---
CHIEF COMPLAINT: 1. Missed dialysis. 2. Shortness of breath. HISTORY OF PRESENT ILLNESS: A 54-year-old -[place] female with history of hypertension, peripheral artery disease, left bundle branch block, end-stage renal disease, type 2 diabetes, on hemodialysis. Had angiogram this morning. Because of the angiogram, the patient missed her hemodialysis. Tomorrow being Thanksgiving, the patient is going to miss hemodialysis for 5 days in total, hence being admitted as observation to the hospital for emergent hemodialysis, so that she can get the next hemodialysis on Tuesday. Today is Tuesday. the dialysis center is closed. The patient is on Tuesday, , and Tuesday schedule. The patient is on cefazolin for her soft tissue infection of the heel. PAST MEDICAL HISTORY: As mentioned, anemia, peripheral neuropathy, insulin-dependent diabetes, hypertension, chronic pain and gastroesophageal reflux disease. PAST SURGICAL HISTORY: Left arm fistula, ERCP, right knee replacement and left BKA. SOCIAL HISTORY: Never a smoker. No alcohol, no drugs. FAMILY HISTORY: Hypertension. CURRENT MEDICATIONS: On chart. PHYSICAL EXAMINATION: GENERAL: Middle-aged female, cooperative during examination. VITAL SIGNS: Blood pressure 185/85, temperature 97.7, pulse 69, respirations 12. HEENT: Unremarkable. Pupils equal and reactive. NECK: Supple, no lymphadenopathy, no thyromegaly. LUNGS: Clear to auscultation and percussion. Good air entry. CARDIOVASCULAR: S1, S2 heard. No gallop, no murmur, no rub. Apical impulse in left fifth intercostal space and midclavicular line. ABDOMEN: Soft and benign. No hepatosplenomegaly. No guarding, no rigidity. Hernial orifices are normal. EXTREMITIES: Good pedal pulses. No pedal edema. CENTRAL NERVOUS SYSTEM: Alert and oriented x 4, nonfocal exam. The patient is a left BKA. SKIN: Normal. LABORATORY DATA: Significant for potassium of 3.4, sodium of 137, BUN and creatinine of 23 and 5.1 and glucose is 113. ASSESSMENT AND PLAN: 1. Volume overload secondary to missed hemodialysis. The patient is to go for emergent hemodialysis. 2. End-stage renal disease, needing dialysis. The patient sent for emergent hemodialysis. 3. Hypertension. Continue antihypertensives in the form of hydralazine, losartan and metoprolol. 4. Gastroesophageal reflux disease. Continue Protonix. 5. Chronic pain. Continue oxycodone. 6. Heel ulcer. Continue antibiotics. Insulin-dependent diabetes. Continue home insulin. 7. Deep venous thrombosis prophylaxis, heparin 5000 q. 12 hours. DISCHARGE PLANNING: The patient will be discharged after hemodialysis. The patient is in observation status. JOB# [id number] VSRommel/ADRIENNE MACIAS
--- NOTE | 2019-09-26 19:16 | Discharge Summary ---
HOSPITAL COURSE: The patient admitted for emergent hemodialysis. The patient missed hemodialysis secondary to her angiogram as an outpatient. The patient underwent hemodialysis as well. Shortness of breath is better. The patient will be discharged. The patient got 1 potassium dose because of her potassium was 3.4. The patient initiated on her home medications. The patient is to be discharged. DISCHARGE DIAGNOSES: 1. Volume overload. 2. End-stage renal disease, needing dialysis. 3. Hypertension. 4. Insulin-dependent diabetes. 5. Gastroesophageal reflux disease. 6. Anemia. 7. Congestive heart failure. JOB# [id number] SANDRA/ADRIENNE MACIAS
[2019-09-26 19:37] VITALS: BP 180/86
[2019-09-26] MEDS ORDERED: HEPARIN 5,000 UNIT/1 ML VIAL SUB-Q SCH (22:00)
[2019-09-26] MEDS ORDERED: METOPROLOL TARTRATE 100 MG TAB PO SCH (22:00)
[2019-09-27] MEDS ORDERED: POLYETHYLENE GLYCOL 3350 17 GM POWDER PO SCH (10:00)
== END 2019-09-26 16:40 | disposition admitted as inpatient to this hospital (09) ==
LOC: ED 15:41
DX: E11.22 Type 2 diabetes mellitus with diabetic chronic kidney disease (principal); I12.0 Hypertensive chronic kidney disease with stage 5 chronic kidney disease or end stage renal disease; N28.9 Disorder of kidney and ureter, unspecified; M19.90 Unspecified osteoarthritis, unspecified site; Z98.890 Other specified postprocedural states; Z98.62 Peripheral vascular angioplasty status; Z79.899 Other long term (current) drug therapy; Z88.2 Allergy status to sulfonamides; Z88.8 Allergy status to other drugs, medicaments and biological substances
CPT/HCPCS: 36415; 80048; G0257

== ENCOUNTER 2019-10-03 09:03 | Outpatient (CLI) | payer MEDICARE, OTHER ==
[2019-10-03] MEDS ORDERED: LIDOCAINE (4%) 40 MG/ML TOPICAL SOLN 50 ML BOTTLE TP ONE (10:00)
[2019-10-03] MEDS ORDERED: SILVER NITRATE APPLICATOR 1 EA TP ONE (10:30)
== END 2019-10-03 09:04 | disposition home or self-care (01) ==
LOC: WOUND 09:03
PROVIDERS: ATTEND Surgery
DX: E11.621 Type 2 diabetes mellitus with foot ulcer (principal); L97.522 Non-pressure chronic ulcer of other part of left foot with fat layer exposed; L97.423 Non-pressure chronic ulcer of left heel and midfoot with necrosis of muscle; L97.413 Non-pressure chronic ulcer of right heel and midfoot with necrosis of muscle; I10 Essential (primary) hypertension; Z87.891 Personal history of nicotine dependence; Z99.2 Dependence on renal dialysis
CPT/HCPCS: G0378

== ENCOUNTER 2019-10-10 09:04 | Outpatient (CLI) | payer MEDICARE, OTHER ==
[2019-10-10] MEDS ORDERED: SILVER NITRATE APPLICATOR 1 EA TP ONE (10:00)
[2019-10-10] MEDS ORDERED: LIDOCAINE (4%) 40 MG/ML TOPICAL SOLN 50 ML BOTTLE TP ONE (10:00)
== END 2019-10-10 09:05 | disposition home or self-care (01) ==
LOC: WOUND 09:04
PROVIDERS: ATTEND Surgery
DX: E11.621 Type 2 diabetes mellitus with foot ulcer (principal); L97.522 Non-pressure chronic ulcer of other part of left foot with fat layer exposed; L97.423 Non-pressure chronic ulcer of left heel and midfoot with necrosis of muscle; L97.413 Non-pressure chronic ulcer of right heel and midfoot with necrosis of muscle; I10 Essential (primary) hypertension; Z87.891 Personal history of nicotine dependence; Z99.2 Dependence on renal dialysis

== ENCOUNTER 2019-10-17 09:02 | Outpatient (CLI) | payer MEDICARE ==
[2019-10-17] MEDS ORDERED: LIDOCAINE (4%) 40 MG/ML TOPICAL SOLN 50 ML BOTTLE TP ONE (09:30)
== END 2019-10-17 09:03 | disposition home or self-care (01) ==
LOC: WOUND 09:02
PROVIDERS: ATTEND Surgery
DX: E11.621 Type 2 diabetes mellitus with foot ulcer (principal); L97.522 Non-pressure chronic ulcer of other part of left foot with fat layer exposed; L97.423 Non-pressure chronic ulcer of left heel and midfoot with necrosis of muscle; L97.413 Non-pressure chronic ulcer of right heel and midfoot with necrosis of muscle; I10 Essential (primary) hypertension; Z87.891 Personal history of nicotine dependence; Z99.2 Dependence on renal dialysis

== ENCOUNTER 2019-11-07 08:55 | Outpatient (CLI) | payer MEDICARE ==
[2019-11-07] MEDS ORDERED: LIDOCAINE (4%) 40 MG/ML TOPICAL SOLN 50 ML BOTTLE TP ONE (09:30)
[2019-11-07] MEDS ORDERED: SODIUM HYPOCHLORITE, DAKIN'S FULL STRENGTH (0.5%) 473 ML TOPICAL SOLN TP ONE (10:00)
== END 2019-11-07 08:56 | disposition home or self-care (01) ==
LOC: WOUND 08:55
PROVIDERS: ATTEND Surgery
DX: E11.621 Type 2 diabetes mellitus with foot ulcer (principal); L97.522 Non-pressure chronic ulcer of other part of left foot with fat layer exposed; L97.423 Non-pressure chronic ulcer of left heel and midfoot with necrosis of muscle; L97.413 Non-pressure chronic ulcer of right heel and midfoot with necrosis of muscle; I10 Essential (primary) hypertension; Z87.891 Personal history of nicotine dependence; Z99.2 Dependence on renal dialysis

== ENCOUNTER 2019-11-07 10:05 | Inpatient (IN) | payer MEDICARE ==
--- NOTE | 2019-11-07 12:57 | History and Physical Report ---
History of Present Illness Date of examination: 11/07/19 Date of admission: 11/07/19 11:36 Chief complaint: Direct Admission from Dr. Rowell's office Rt Foot Abscess: History of present illness: 54-year-old female patient with significant past medical history of hypertension diabetes mellitus end-stage renal disease on hemodialysis status post left BKA in May 2019, was sent from Dr. Rowell's office for further evaluation and management of Rt.foot abscess. Patient had surgical debridement of the right foot abscess today and wound care Patient denies any fever, no nausea vomiting or abdominal pain Denies chest pain or shortness of breath Patient has history of end-stage renal disease on hemodialysis per schedule Past History Past Medical History: diabetes, dialysis, ESRD (on hemodialysis), hypertension Past Surgical History: Other (left BKA, AV fistula, surgical debridement) Social history: denies: smoking, alcohol abuse, prescription drug abuse, IV drug use Family history: hypertension Medications and Allergies Allergies Allergy/AdvReac Type Severity Reaction Status Date / Time amlodipine Allergy Itching Verified 09/26/19 16:04 losartan Allergy Itching Verified 09/26/19 16:04 sulfamethoxazole Allergy Rash Verified 09/26/19 16:04 [From Bactrim] trimethoprim [From Bactrim] Allergy Rash Verified 09/26/19 16:04 morphine AdvReac Vomiting Verified 09/26/19 16:04 Home Medications Medication Instructions Recorded Confirmed Last Taken Type Ascorbic Acid [Vitamin C] 500 mg PO BID #14 tablet 07/13/19 09/13/19 Unknown Rx Epoetin Jacoby 10,000 Unit [Procrit] 5,000 unit IV FRANCOIS PRN vial 07/13/19 09/13/19 Unknown Rx Ferrous Sulfate [Feosol 325 MG tab] 325 mg PO BID #14 tablet 07/13/19 09/13/19 Unknown Rx Folic Acid [Folvite] 1 mg PO QDAY #7 tablet 07/13/19 09/13/19 Unknown Rx Gabapentin 100 mg PO BID #60 capsule 07/13/19 09/13/19 Unknown Rx Insulin Glargine [Lantus VIAL] 15 units SUB-Q QHS 30 Days units 07/13/19 09/13/19 Unknown Rx Lispro Insulin [HumaLOG] See Protocol SUB-Q ACHS 30 Days 07/13/19 09/13/19 Unkno wn Rx units Metoclopramide [Reglan TAB] 5 mg PO ACHS 30 Days tablet 07/13/19 09/13/19 Unknown Rx Metoprolol [Lopressor TAB] 100 mg PO BID #60 tablet 07/13/19 09/13/19 Unknown Rx NIFEdipine XL [Procardia Xl] 60 mg PO QDAY #30 tablet 07/13/19 09/13/19 Unknown Rx Polyethylene Glycol 3350 [Miralax 17 gm PO QDAY 30 Days powd.pack 07/13/19 09/13/19 Unknown Rx 3350] Torsemide [Demadex] 60 mg PO DAILY 30 Days tablet 07/13/19 09/13/19 Unknown Rx Zolpidem [Ambien] 5 mg PO QHS PRN #15 tablet 07/13/19 09/13/19 Unknown Rx cloNIDine [Catapres] 0.1 mg PO Q12H PRN #60 tablet 07/13/19 09/13/19 Unknown Rx hydrALAZINE [Apresoline TAB] 100 mg PO Q8HR #90 tab 07/13/19 09/13/19 Unknown Rx oxyCODONE [roxiCODONE] 5 mg PO Q4H PRN #20 tablet 07/13/19 09/13/19 Unknown Rx Hydrocortisone 0.5% 1 applicatio TP TID #1 tube 09/21/19 Unknown Rx [Hydrocortisone 0.5% CREAM] Pantoprazole [Protonix TAB] 40 mg PO DAILY #30 tablet 09/21/19 Unknown Rx Sodium Hypochlorite [Dakin's Half 1 applic TP BID #1 bottle 09/21/19 Unknown Rx Strength] Review of Systems Constitutional: no weight loss, no weight gain, no anorexia, no fatigue, no weakness Ears, nose, mouth and throat: no nasal congestion, no nasal discharge Cardiovascular: no chest pain, no orthopnea, no palpitations Respiratory: no cough, no shortness of breath Gastrointestinal: no abdominal pain, no nausea, no vomiting Genitourinary Female: no pelvic pain, no dysuria Musculoskeletal: no neck stiffness, no arthritis Integumentary: foot/leg ulcers, other (Right foot abscess), no rash, no lesions Neurological: no seizures, no syncope Psychiatric: no anxiety, no depression Endocrine: no cold intolerance, no heat intolerance Hematologic/Lymphatic: no easy bruising, no easy bleeding Allergic/Immunologic: no urticaria, no allergic rhinitis Exam - Constitutional Vitals: Temp Pulse Resp BP Pulse Ox 100.3 F H 97 H 22 193/100 95 11/07/19 11:58 11/07/19 11:58 11/07/19 11:58 11/07/19 11:58 11/07/19 11:58 General appearance: Present: no acute distress, well-nourished - EENT Eyes: Present: EOM intact - Neck Neck: Present: supple, normal ROM - Respiratory Respiratory effort: normal Respiratory: bilateral: diminished, negative: rales, rhonchi, wheezing Assessment and Plan --Abscesses right foot; IV antibiotics, wound care, and cultures Surgery evaluation for possible I&D. Elevate the limb --Peripheral neuropathy; continue gabapentin --End-stage renal disease; on hemodialysis Nephrology consult Ht per schedule --Hypertension; Moderate control'resume multiple home antihypertensives When necessary medications --Type 2 diabetes mellitus; Accu-Chek sliding scale coverage ADA diet --DVT prophylaxis; heparin during this--Full CODE STATUS, Monitor closely and adjust management as needed Plan of care reviewed with the patient and has not's Disposition; follow surgery recommendations Possible discharge when medically stable
[2019-11-07] MEDS ORDERED: EPOETIN ALFA 10,000 UNIT/1 ML INJ IV PRN (13:01)
[2019-11-07] MEDS ORDERED: SODIUM CHLORIDE 0.9% 100 ML IV PRN (17:05)
[2019-11-07] MEDS ORDERED: VANCOMYCIN 1,500 MG in SODIUM CHLORIDE 0.9% 500 ML 500 ML IV ONE (17:45)
[2019-11-07] MEDS ORDERED: VANCOMYCIN/NS 1 GM/250 ML 1 GM/250 ML BAG IV ONE (17:53)
[2019-11-07] MEDS ORDERED: VANCOMYCIN PHARMACY TO DOSE IV SCH (18:00)
[2019-11-07] MEDS: INSULIN LISPRO 100 UNIT/ML SUB-Q SCH ×2 (18:09→23:18)
[2019-11-07] MEDS: METOCLOPRAMIDE 10 MG TAB PO SCH ×2 (18:09→21:35)
[2019-11-07] MEDS: HYDROmorphone 1 MG/1 ML INJ IV PRN ×2 (18:44→21:34)
[2019-11-07 21:07] LABS: Hepatitis B Surface Antigen Non-Reactive (Negative); Hepatitis C Virus Antibody Non-Reactive (NonReactive)
--- NOTE | 2019-11-07 21:23 | XRay Report ---
RIGHT FEMUR 4 VIEWS INDICATION: right femur infection. COMPARISON: No relevant prior imaging study available. FINDINGS: There is no acute skeletal abnormality. Right knee arthroplasty appears unremarkable. On the lateral view there are a few punctate foci of soft tissue gas in the anterior suprapatellar di stal right thigh. There is mild associated soft tissue swelling. IMPRESSION: 1. Suprapatellar soft tissue swelling with punctate foci of soft tissue gas. No acute skeletal abnorm ality. Signer Name: Anup Dumont MD Signed: 11/07/2019 9:19 PM Workstation Name: [email or web address]
[2019-11-07] MEDS: GABAPENTIN 100 MG CAP PO SCH (21:36)
[2019-11-07 21:46] LABS: Hematocrit 28.4 % (30.3-42.9); Hemoglobin 8.9 gm/dl (10.1-14.3); Mean Corpuscular HGB Conc 31 % (30-34); Mean Corpuscular Volume 71 fl (79-97); Platelet Count 393 K/mm3 (140-440); Red Blood Count 4.03 M/mm3 (3.65-5.03)
[2019-11-07] MEDS ORDERED: CEFEPIME/NS 2 GM/100 ML 2 GM/100 ML BAG IV SCH (22:00)
[2019-11-07] MEDS ORDERED: FERROUS SULFATE 325 MG TAB PO SCH (22:00)
[2019-11-07] MEDS ORDERED: ASCORBIC ACID 500 MG TAB PO SCH (22:00)
[2019-11-07 22:19] LABS: Basophils % (Manual) 0 % (0.0-1.8); Total Cells Counted 100
[2019-11-07 22:20] LABS: Hypochromasia 2+; Ovalocytes 1+; Schistocytes Rare; Target Cells 1+
[2019-11-07 22:21] LABS: Large Platelets 1+; Platelet Estimate Consistent w Auto
[2019-11-07] MEDS: CEFEPIME/NS 1 GM/100 ML 1 GM/100 ML BAG IV SCH (23:17)
[2019-11-07] MEDS: INSULIN GLARGINE 100 UNITS/ML SUB-Q SCH (23:19)
[2019-11-07] MEDS ORDERED: hydrOXYzine HCL 10 MG TAB PO PRN (23:51)
[2019-11-08] MEDS: HYDROmorphone 1 MG/1 ML INJ IV PRN ×6 (00:58→23:30)
[2019-11-08 07:10] LABS: Hematocrit 30.2 % (30.3-42.9); Hemoglobin 9.7 gm/dl (10.1-14.3); Mean Corpuscular HGB Conc 32 % (30-34); Mean Corpuscular Volume 71 fl (79-97); Platelet Count 433 K/mm3 (140-440); Red Blood Count 4.27 M/mm3 (3.65-5.03); Red Cell Distribution Width 18.3 % (13.2-15.2)
[2019-11-08 07:38] LABS: Albumin 2.7 g/dL (3.9-5); BUN/Creatinine Ratio 6; Bilirubin,Direct 0.5 mg/dL (0-0.2); Blood Urea Nitrogen 34 mg/dL (7-17); Calcium 8.6 mg/dL (8.4-10.2); Hemolysis Index 7
[2019-11-08 07:49] LABS: Alanine Aminotransferase < 5 units/L (7-56)
[2019-11-08] MEDS ORDERED: DEXTROSE 50% IN WATER (25GM) 50 ML SYRINGE IV ONE ×4 (07:58→21:47)
[2019-11-08] MEDS ORDERED: DEXTROSE 50% IN WATER (25GM) 50 ML VIAL IV ONE (07:58)
--- NOTE | 2019-11-08 08:13 | Event Note ---
Date: 11/08/19 Patient was lethargic, BG showed ~20s Code med called She was given 2 amps of D50, she started to feel better She was also given 2 cups of orange juice Patient was NPO for surgery today. Will cancel NPO for severe hypoglycemia.
[2019-11-08] MEDS: METOCLOPRAMIDE 10 MG TAB PO SCH ×4 (08:25→22:09)
[2019-11-08 09:04] LABS: Basophils % (Manual) 0 % (0.0-1.8); Eosinophils % (Manual) 0 % (0.0-4.3); Total Cells Counted 100
[2019-11-08 09:05] LABS: Hypochromasia 1+; Large Platelets Few; Platelet Estimate Consistent w Auto; Target Cells 2+; Tear Drop Cells Few
[2019-11-08] MEDS: INSULIN LISPRO 100 UNIT/ML SUB-Q SCH ×4 (09:23→21:40)
[2019-11-08] MEDS: FOLIC ACID 1 MG TAB PO SCH (10:03)
[2019-11-08] MEDS: GABAPENTIN 100 MG CAP PO SCH ×2 (10:03→22:09)
--- NOTE | 2019-11-08 11:35 | Consultation ---
History of Present Illness - [facility] Consult date: 11/08/19 Consult reason: other History of present illness: 54-year-old female with significant past medical history of diabetes, end-stage renal and peripheral vascular diseased, who was admitted from wound clinic for abscess right foot. Patient is status post revision total total knee arthroplasty on the right... Past History Past Medical History: diabetes, dialysis, ESRD (on hemodialysis), hypertension Past Surgical History: Other (left BKA, AV fistula, surgical debridement) Social history: denies: smoking, alcohol abuse, prescription drug abuse, IV drug use Family history: hypertension Medications and Allergies Allergies Allergy/AdvReac Type Severity Reaction Status Date / Time amlodipine Allergy Itching Verified 09/26/19 16:04 losartan Allergy Itching Verified 09/26/19 16:04 sulfamethoxazole Allergy Rash Verified 09/26/19 16:04 [From Bactrim] trimethoprim [From Bactrim] Allergy Rash Verified 09/26/19 16:04 morphine AdvReac Vomiting Verified 09/26/19 16:04 Home Medications Medication Instructions Recorded Confirmed Last Taken Type Epoetin Jacoby 10,000 Unit [Procrit] 5,000 unit IV FRANCOIS PRN vial 07/13/19 11/07/19 Unknown Rx Gabapentin 100 mg PO BID #60 capsule 07/13/19 11/07/19 Unknown Rx Insulin Glargine [Lantus VIAL] 15 units SUB-Q QHS 30 Days units 07/13/19 11/07/19 Unknown Rx Lispro Insulin [HumaLOG] See Protocol SUB-Q ACHS 30 Days 07/13/19 11/07/19 Unknown Rx units Metoprolol [Lopressor TAB] 100 mg PO BID #60 tablet 07/13/19 11/07/19 Unknown Rx NIFEdipine XL [Procardia Xl] 60 mg PO QDAY #30 tablet 07/13/19 11/07/19 Unknown Rx Torsemide [Demadex] 60 mg PO DAILY 30 Days tablet 07/13/19 11/07/19 Unknown Rx Zolpidem [Ambien] 5 mg PO QHS PRN #15 tablet 07/13/19 11/07/19 Unknown Rx cloNIDine [Catapres] 0.1 mg PO Q12H PRN #60 tablet 07/13/19 11/07/19 Unknown Rx hydrALAZINE [Apresoline TAB] 100 mg PO Q8HR #90 tab 07/13/19 11/07/19 Unknown Rx Sodium Hypochlorite [Dakin's Half 1 applic TP BID #1 bottle 09/21/19 11/07/19 Unknown Rx Strength] Active Meds: Active Medications Epoetin Jacoby (Procrit) 5,000 unit IV FRANCOIS PRN PRN Reason: Dialysis Folic Acid (Folvite) 1 mg PO QDAY [facility] Last Admin: 11/08/19 10:03 Dose: 1 mg Documented by: Gabapentin (Gabapentin) 100 mg PO BID [facility] Last Admin: 11/08/19 10:03 Dose: 100 mg Documented by: Hydromorphone HCl (Dilaudid) 0.5 mg IV Q4H PRN PRN Reason: Pain , Severe (7-10) Last Admin: 11/08/19 10:04 Dose: 0.5 mg Documented by: Hydroxyzine HCl (Atarax) 10 mg PO Q6H PRN PRN Reason: Itching Last Admin: 11/08/19 00:15 Dose: 10 mg Documented by: Sodium Chloride (Nacl 0.9%) 100 mls @ 999 mls/hr IV FRANCOIS PRN PRN Reason: Hypotension Cefepime HCl (Cefepime/Ns 1 Gm/100 Ml) 1 gm in 100 mls @ 200 mls/hr IV Q24H [facility] Last Admin: 11/07/19 23:17 Dose: 200 mls/hr Documented by: [facility]ulin [facility]: 11/07/19 23:19 Dose: 15 units Documented by: Insulin Human Lispro (Humalog) 0 unit SUB-Q [facility]; Protocol Last Admin: 11/08/19 09:23 Dose: Not Given Documented by: Metoclopramide HCl (Reglan) 5 mg PO [facility] Last Admin: 11/08/19 08:25 Dose: Not Given Documented by: Physical Examination - Physical exam Narrative exam: At the right lower extremity patient is noted to have foul-smelling wound mainly plantar surface of the right foot extending up to worse the heel patient also has chronic skin changes in the lower portion of the right leg there is well- healed midline incision over the right knee Eyes: PERRL ENT: Positive: clear oral mucosa Respiratory effort: normal Respiratory: bilateral: CTA Rhythm: regular Heart Sounds: Positive: S1 & S2 General gastrointestinal: Positive: soft, non-tender, non-distended, normal bowel sounds Integumentary: clear, warm, dry Neurologic: Positive: CNII-XII intact, moves all extremities, gait normal. Negative: focal deficits Assessment and Plan 54-year-old female with significant history of diabetes and end-stage renal disease and severe peripheral vascular disease patient has a long stem total knee implants which will definitely prevent below-knee amputation however due to the patient's bedbound status patient is nonambulatory patient more likely will require above-knee amputation.
--- NOTE | 2019-11-08 15:03 | Progress Note ---
Assessment and Plan - Patient Problems (1) Foot abscess, right Current Visit: Yes Status: Acute Plan to address problem: Surgical team consulted in ED, patient is pending surgical debridement, IV antibiotic therapy, supportive care. Orthopedic surgery consulted. (2) Diabetes Current Visit: No Status: Chronic Qualifiers: Diabetes mellitus type: type 2 Diabetes mellitus medical terminologist insulin use: with medical terminologist use Diabetes mellitus complication status: with skin complications Diabetes mellitus complication detail: with foot ulcer Qualified Code(s): E11.621 - Type 2 diabetes mellitus with foot ulcer; L97.509 - Non-pressure chronic ulcer of other part of unspecified foot with unspecified severity; Z79.4 - prison (current) use of insulin Plan to address problem: Consistent carbohydrate diet, sliding scale insulin therapy, Accu-Chek, hypoglycemia protocol (3) ESRD (end stage renal disease) Current Visit: No Status: Chronic Plan to address problem: Nephrology consulted in ED. Dialysis as per renal team, strict I's/O, daily weight, avoid nephrotoxic agents. (4) HLD (hyperlipidemia) Current Visit: No Status: Chronic Qualifiers: Hyperlipidemia type: mixed hyperlipidemia Qualified Code(s): E78.2 - Mixed hyperlipidemia Plan to address problem: Statin therapy, balanced diet (5) HTN (hypertension) Current Visit: No Status: Chronic Qualifiers: Hypertension type: essential hypertension Qualified Code(s): I10 - Essential (primary) hypertension Plan to address problem: Monitor BP every shift, continue medical management. (6) DVT prophylaxis Current Visit: No Status: Acute Plan to address problem: SCD to bilateral lower extremity while in bed, patient ambulatory. History Interval history: 54-year-old female hospital day 2 with end-stage renal disease, diabetes mellitus, right foot abscess. Patient lab and imaging studies reviewed. Patient denies fever, chills, chest pain, palpitations, shortness of breath. Patient pending surgical debridement. Surgical team consulted. Hospitalist Physical - Constitutional Vitals: Temp Pulse Resp BP Pulse Ox 99.3 F 93 H 20 196/104 95 11/08/19 04:49 11/08/19 14:01 11/08/19 04:49 11/08/19 14:01 11/08/19 04:49 General appearance: Present: mild distress, well-nourished - EENT Eyes: Present: PERRL ENT: hearing intact - Neck Neck: Present: supple - Respiratory Respiratory: right: CTA - Cardiovascular Rhythm: regular Heart Sounds: Present: S1 & S2 - Extremities Extremity abnormal: edema Peripheral Pulses: within normal limits - Abdominal General gastrointestinal: soft, non-tender, non-distended - Integumentary Integumentary: Present: clear, dry, clammy - Psychiatric Psychiatric: appropriate mood/affect, cooperative - Neurologic Neurologic: CNII-XII intact Results - Labs CBC & Chem 7: 11/08/19 06:09 11/08/19 08:17 Labs: Laboratory Last Values WBC 20.0 K/mm3 (4.5-11.0) H 11/08/19 06:09 RBC 4.27 M/mm3 (3.65-5.03) 11/08/19 06:09 Hgb 9.7 gm/dl (10.1-14.3) L 11/08/19 06:09 Hct 30.2 % (30.3-42.9) L 11/08/19 06:09 MCV 71 fl (79-97) L 11/08/19 06:09 MCH 23 pg (28-32) L 11/08/19 06:09 MCHC 32 % (30-34) 11/08/19 06:09 RDW 18.3 % (13.2-15.2) H 11/08/19 06:09 Plt Count 433 K/mm3 (140-440) 11/08/19 06:09 Lymph % (Auto) [employer] 11/07/19 21:16 Trigg % (Auto) [employer] 11/07/19 21:16 Eos % (Auto) [employer] 11/07/19 21:16 Baso % (Auto) [employer] 11/07/19 21:16 Lymph # [employer] 11/07/19 21:16 Trigg # [employer] 11/07/19 21:16 Eos # [employer] 11/07/19 21:16 Baso # [employer] 11/07/19 21:16 Add Manual Diff Complete 11/08/19 06:09 Total Counted 100 11/08/19 06:09 Seg Neutrophils % [employer] 11/07/19 21:16 Seg Neuts % (Manual) 90.0 % (40.0-70.0) H 11/08/19 06:09 Band Neutrophils % 0 % 11/08/19 06:09 Lymphocytes % (Manual) 6.0 % (13.4-35.0) L 11/08/19 06:09 Reactive Lymphs % (Man) 0 % 11/08/19 06:09 Monocytes % (Manual) 4.0 % (0.0-7.3) 11/08/19 06:09 Eosinophils % (Manual) 0 % (0.0-4.3) 11/08/19 06:09 Basophils % (Manual) 0 % (0.0-1.8) 11/08/19 06:09 Metamyelocytes % 0 % 11/08/19 06:09 Myelocytes % 0 % 11/08/19 06:09 Promyelocytes % 0 % 11/08/19 06:09 Blast Cells % 0 % 11/08/19 06:09 Nucleated RBC % Not Reportable 11/08/19 06:09 Seg Neutrophils # [employer] 11/07/19 21:16 Seg Neutrophils # Man 18.0 K/mm3 (1.8-7.7) H 11/08/19 06:09 Band Neutrophils # 0.0 K/mm3 11/08/19 06:09 Lymphocytes # (Manual) 1.2 K/mm3 (1.2-5.4) 11/08/19 06:09 Abs React Lymphs (Man) 0.0 K/mm3 11/08/19 06:09 Monocytes # (Manual) 0.8 K/mm3 (0.0-0.8) 11/08/19 06:09 Eosinophils # (Manual) 0.0 K/mm3 (0.0-0.4) 11/08/19 06:09 Basophils # (Manual) 0.0 K/mm3 (0.0-0.1) 11/08/19 06:09 Metamyelocytes # 0.0 K/mm3 11/08/19 06:09 Myelocytes # 0.0 K/mm3 11/08/19 06:09 Promyelocytes # 0.0 K/mm3 11/08/19 06:09 Blast Cells # 0.0 K/mm3 11/08/19 06:09 WBC Morphology Not Reportable 11/08/19 06:09 Hypersegmented Neuts Not Reportable 11/08/19 06:09 Hyposegmented Neuts Not Reportable 11/08/19 06:09 Hypogranular Neuts Not Reportable 11/08/19 06:09 Smudge Cells Not Reportable 11/08/19 06:09 Toxic Granulation Not Reportable 11/08/19 06:09 Toxic Vacuolation Not Reportable 11/08/19 06:09 Dohle Bodies Not Reportable 11/08/19 06:09 Pelger-Huet Anomaly Not Reportable 11/08/19 06:09 Mary Lou Rods Not Reportable 11/08/19 06:09 Platelet Estimate Consistent w auto 11/08/19 06:09 Clumped Platelets Not Reportable 11/08/19 06:09 Plt Clumps, EDTA Not Reportable 11/08/19 06:09 Large Platelets Few 11/08/19 06:09 Giant Platelets Not Reportable 11/08/19 06:09 Platelet Satelliting Not Reportable 11/08/19 06:09 Plt Morphology Comment Not Reportable 11/08/19 06:09 RBC Morphology Not Reportable 11/08/19 06:09 Dimorphic RBCs Not Reportable 11/08/19 06:09 Polychromasia Not Reportable 11/08/19 06:09 Hypochromasia 1+ 11/08/19 06:09 Poikilocytosis Not Reportable 11/08/19 06:09 Anisocytosis Not Reportable 11/08/19 06:09 Microcytosis Not Reportable 11/08/19 06:09 Macrocytosis Not Reportable 11/08/19 06:09 Spherocytes Not Reportable 11/08/19 06:09 Pappenheimer Bodies Not Reportable 11/08/19 06:09 Sickle Cells Not Reportable 11/08/19 06:09 Target Cells 2+ 11/08/19 06:09 Tear Drop Cells Few 11/08/19 06:09 Ovalocytes Not Reportable 11/08/19 06:09 Helmet Cells Not Reportable 11/08/19 06:09 Nelson-[place] Bodies Not Reportable 11/08/19 06:09 [place] Rings Not Reportable 11/08/19 06:09 [place] Cells Not Reportable 11/08/19 06:09 Bite Cells Not Reportable 11/08/19 06:09 Crenated Cell Not Reportable 11/08/19 06:09 Elliptocytes Few 11/08/19 06:09 Acanthocytes (Spur) Not Reportable 11/08/19 06:09 Rouleaux Not Reportable 11/08/19 06:09 Hemoglobin C Crystals Not Reportable 11/08/19 06:09 Schistocytes Not Reportable 11/08/19 06:09 Malaria parasites Not Reportable 11/08/19 06:09 Sigifredo Bodies Not Reportable 11/08/19 06:09 Hem Pathologist Commnt No 11/08/19 06:09 Sodium 138 mmol/L (137-145) 11/08/19 06:09 Potassium 3.5 mmol/L (3.6-5.0) L 11/08/19 06:09 Chloride 92.0 mmol/L (98-107) L 11/08/19 06:09 Carbon Dioxide 23 mmol/L (22-30) 11/08/19 06:09 Anion Gap 27 mmol/L 11/08/19 06:09 BUN 34 mg/dL (7-17) H 11/08/19 06:09 Creatinine 5.8 mg/dL (0.7-1.2) H 11/08/19 06:09 Estimated GFR 9 ml/min 11/08/19 06:09 BUN/Creatinine Ratio 6 % 11/08/19 06:09 Glucose 226 mg/dL (65-100) H 11/08/19 08:17 POC Glucose < 40 (70-105) L 11/08/19 08:07 Calcium 8.6 mg/dL (8.4-10.2) 11/08/19 06:09 Magnesium 2.20 mg/dL (1.7-2.3) 11/08/19 06:09 Total Bilirubin 0.70 mg/dL (0.1-1.2) 11/08/19 06:09 Direct Bilirubin 0.5 mg/dL (0-0.2) H 11/08/19 06:09 Indirect Bilirubin 0.2 mg/dL 11/08/19 06:09 AST 19 units/L (5-40) 11/08/19 06:09 ALT < 5 units/L (7-56) L 11/08/19 06:09 Alkaline Phosphatase 934 units/L (35-129) H 11/08/19 06:09 Total Protein 8.4 g/dL (6.3-8.2) H 11/08/19 06:09 Albumin 2.7 g/dL (3.9-5) L 11/08/19 06:09 Albumin/Globulin Ratio 0.5 % 11/08/19 06:09 Hepatitis A IgM Ab Non-reactive (NonReactive) 11/07/19 20:19 Hep Bs Antigen Non-reactive (Negative) 11/07/19 20:19 Hep B Core IgM Ab Non-reactive (NonReactive) 11/07/19 20:19 Hepatitis C Antibody Non-reactive (NonReactive) 11/07/19 20:19 Active Medications - Current Medications Current Medications: Generic Name Dose Route Start Last Admin Trade Name Freq PRN Reason Stop Dose Admin Epoetin Jacoby 5,000 unit 11/07/19 13:01 Procrit IV FRANCOIS PRN Dialysis Folic Acid 1 mg 11/08/19 10:00 11/08/19 10:03 Folvite PO 1 mg QDAY FATMATA Administration Gabapentin 100 mg 11/07/19 22:00 11/08/19 10:03 Gabapentin PO 100 mg BID FATMATA Administration Hydromorphone HCl 0.5 mg 11/07/19 16:48 11/08/19 10:04 Dilaudid IV 0.5 mg Q4H PRN Administration Pain , Severe (7-10) Hydroxyzine HCl 10 mg 11/07/19 23:51 11/08/19 00:15 Atarax PO 10 mg Q6H PRN Administration Itching Sodium Chloride 100 mls @ 999 mls/hr 11/07/19 17:05 Nacl 0.9% IV FRANCOIS PRN Hypotension Cefepime HCl 1 gm in 100 mls @ 200 mls/hr 11/07/19 22:00 11/07/19 23:17 Cefepime/Ns 1 Gm/100 Ml IV 200 mls/hr Q24H FATMATA Administration Insulin Glargine 15 units 11/07/19 22:00 11/07/19 23:19 Lantus SUB-Q 15 units QHS FATMATA Administration Insulin Human Lispro 0 unit 11/07/19 16:30 11/08/19 12:11 [facility] Protocol Metoclopramide HCl 5 mg 11/07/19 16:30 11/08/19 12:10 Reglan PO Not Given ACHS [facility]
--- NOTE | 2019-11-08 17:29 | Consultation ---
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 Nephrology consult at this time for chronic hemodialysis needs. She is dialyzing on a Tuesday outpatient schedule. She dialyzes at her outpatient unit at [facility]. Her last hemodialysis session was Tuesday. Past History Past Medical History: diabetes, dialysis, ESRD (on hemodialysis), hypertension Past Surgical History: Other (left BKA, AV fistula, surgical debridement) Social history: denies: smoking, alcohol abuse, prescription drug abuse, IV drug use Family history: hypertension Medications and Allergies Allergies Allergy/AdvReac Type Severity Reaction Status Date / Time amlodipine Allergy Itching Verified 09/26/19 16:04 losartan Allergy Itching Verified 09/26/19 16:04 sulfamethoxazole Allergy Rash Verified 09/26/19 16:04 [From Bactrim] trimethoprim [From Bactrim] Allergy Rash Verified 09/26/19 16:04 morphine AdvReac Vomiting Verified 09/26/19 16:04 Home Medications Medication Instructions Recorded Confirmed Last Taken Type Epoetin Jacoby 10,000 Unit [Procrit] 5,000 unit IV FRANCOIS PRN vial 07/13/19 11/07/19 Unknown Rx Gabapentin 100 mg PO BID #60 capsule 07/13/19 11/07/19 Unknown Rx Insulin Glargine [Lantus VIAL] 15 units SUB-Q QHS 30 Days units 07/13/19 11/07/19 Unknown Rx Lispro Insulin [HumaLOG] See Protocol SUB-Q ACHS 30 Days 07/13/19 11/07/19 Unknown Rx units Metoprolol [Lopressor TAB] 100 mg PO BID #60 tablet 07/13/19 11/07/19 Unknown Rx NIFEdipine XL [Procardia Xl] 60 mg PO QDAY #30 tablet 07/13/19 11/07/19 Unknown Rx Torsemide [Demadex] 60 mg PO DAILY 30 Days tablet 07/13/19 11/07/19 Unknown Rx Zolpidem [Ambien] 5 mg PO QHS PRN #15 tablet 07/13/19 11/07/19 Unknown Rx cloNIDine [Catapres] 0.1 mg PO Q12H PRN #60 tablet 07/13/19 11/07/19 Unknown Rx hydrALAZINE [Apresoline TAB] 100 mg PO Q8HR #90 tab 07/13/19 11/07/19 Unknown Rx Sodium Hypochlorite [Dakin's Half 1 applic TP BID #1 bottle 09/21/19 11/07/19 Unknown Rx Strength] Active Meds: Active Medications Epoetin Jacoby (Procrit) 5,000 unit IV FRANCOIS PRN PRN Reason: Dialysis Folic Acid (Folvite) 1 mg PO QDAY [facility] Last Admin: 11/08/19 10:03 Dose: 1 mg Documented by: Gabapentin (Gabapentin) 100 mg PO BID [facility] Last Admin: 11/08/19 10:03 Dose: 100 mg Documented by: Hydromorphone HCl (Dilaudid) 0.5 mg IV Q4H PRN PRN Reason: Pain , Severe (7-10) Last Admin: 11/08/19 15:57 Dose: 0.5 mg Documented by: Hydroxyzine HCl (Atarax) 10 mg PO Q6H PRN PRN Reason: Itching Last Admin: 11/08/19 00:15 Dose: 10 mg Documented by: Sodium Chloride (Nacl 0.9%) 100 mls @ 999 mls/hr IV FRANCOIS PRN PRN Reason: Hypotension Cefepime HCl (Cefepime/Ns 1 Gm/100 Ml) 1 gm in 100 mls @ 200 mls/hr IV Q24H [facility] Last Admin: 11/07/19 23:17 Dose: 200 mls/hr Documented by: Insulin Glargine (Lantus) 15 units SUB-Q QHS [facility] Last Admin: 11/07/19 23:19 Dose: 15 units Documented by: Insulin Human Lispro (Humalog) 0 unit SUB-Q [facility]; Protocol Last Admin: 11/08/19 12:11 Dose: Not Given Documented by: Metoclopramide HCl (Reglan) 5 mg PO [facility] Last Admin: 11/08/19 12:10 Dose: Not Given Documented by: Review of Systems All systems: negative Constitutional: weakness Exam - Vital Signs Vital signs: Vital Signs Temp Pulse Resp BP Pulse Ox 100.3 F H 97 H 22 193/100 95 11/07/19 11:58 11/07/19 11:58 11/07/19 11:58 11/07/19 11:58 11/07/19 11:58 - General Appearance General appearance: well-developed, well-nourished, appears stated age EENT: ATNC, PERRL, mucous membranes moist Neck: Present: neck supple Respiratory: Clear to Ascultation Heart: regular, S1S2 Gastrointestinal: Present: normoactive bowel sounds Integumentary: no rash, other (+ edema, R foot abscess ) Neurologic: no focal deficit, alert and oriented x3, strength 5/5, CN 3-12 intact Psychiatric: mood/affect appropriate, cooperative Results - Lab Results 11/08/19 06:09 11/08/19 08:17 Most recent lab results Calcium 8.6 mg/dL (8.4-10.2) 11/08/19 06:09 Magnesium 2.20 mg/dL (1.7-2.3) 11/08/19 06:09 Assessment and Plan - Patient Problems (1) Foot abscess, right Current Visit: Yes Status: Acute Plan to address problem: wound cultures obtained, cont IV antibiotics, wound care Surgery evaluation for possible I&D (2) ESRD (end stage renal disease) Current Visit: No Status: Chronic Plan to address problem: arranged HD on TTS schedule (3) Hypertensive chronic kidney disease with stage 5 chronic kidney disease or end stage renal disease Current Visit: No Status: Chronic Plan to address problem: monitor BP on current meds (4) Type 2 diabetes mellitus with diabetic chronic kidney disease Current Visit: No Status: Chronic Qualifiers: Chronic kidney disease stage: on chronic dialysis Plan to address problem: Diabetes management as per primary attending (5) Secondary hyperparathyroidism (of renal origin) Current Visit: No Status: Chronic Plan to address problem: cont binders (pt takes auryxia at home, non formulary here, cont renvela 1600mg tid AC)
--- NOTE | 2019-11-08 17:44 | Procedure Note ---
Date of procedure: 11/08/19 Pre-op diagnosis: 1) Diabetic abscess, right heel 2) Diabetic abscess right plantar foot Post-op diagnosis: same Procedure: Debridement of right heel and right plantar foot Description of procedure: Pt was positioned prone on her bed. The right foot was prepped and draped. A surgical/excisional debridement of necrotic skin, SQ tissue, fascia and muscle of the right heel and right plantar foot was performed with forceps and scissors. Bleeding was minimal and was controlled with pressure. Pt tolerated the procedure well. The wound was then dressed with a Dakin's moistened Kerlix roll followed by a dry Kerlix roll about the foot and ankle. Final wound measurements: 1) Right plantar foot - 9.7 X 8.6 X 0.9 cm 2) Right heel - 8 X 5.7 X 1 cm Anesthesia: none Surgeon: JOCELINE FLAHERTY Estimated blood loss: minimal Pathology: none Specimen disposition: discarded Condition: stable Disposition: no change
[2019-11-08] MEDS ORDERED: SODIUM CHLORIDE*PRIMING MACHINE ONLY FOR DIALYSIS MC ONE (19:20)
[2019-11-08] MEDS ORDERED: ACETAMINOPHEN 325 MG TAB ONE (21:59)
[2019-11-08] MEDS: CEFEPIME/NS 1 GM/100 ML 1 GM/100 ML BAG IV SCH (22:09)
[2019-11-08] MEDS: INSULIN GLARGINE 100 UNITS/ML SUB-Q SCH (22:15)
[2019-11-08] MEDS ORDERED: oxyCODONE /ACETAMINOPHEN 5-325MG TAB PO PRN (22:31)
[2019-11-09] MEDS: HYDROmorphone 1 MG/1 ML INJ IV PRN ×4 (06:08→22:24)
[2019-11-09] MEDS: INSULIN LISPRO 100 UNIT/ML SUB-Q SCH ×4 (08:42→22:28)
[2019-11-09] MEDS: SEVELAMER CARBONATE 800 MG TAB PO SCH ×3 (09:31→17:20)
[2019-11-09] MEDS: METOCLOPRAMIDE 10 MG TAB PO SCH ×5 (09:32→22:28)
[2019-11-09] MEDS: FOLIC ACID 1 MG TAB PO SCH (09:32)
[2019-11-09] MEDS: GABAPENTIN 100 MG CAP PO SCH ×2 (10:00→22:25)
--- NOTE | 2019-11-09 10:18 | Progress Note ---
Assessment and Plan - Patient Problems (1) Foot abscess, right Current Visit: Yes Status: Acute Plan to address problem: wound cultures obtained, cont IV antibiotics, wound care. s/p I&D (2) ESRD (end stage renal disease) Current Visit: No Status: Chronic Plan to address problem: arranged HD on TTS schedule (3) Hypertensive chronic kidney disease with stage 5 chronic kidney disease or end stage renal disease Current Visit: No Status: Chronic Plan to address problem: monitor BP on current meds (4) Type 2 diabetes mellitus with diabetic chronic kidney disease Current Visit: No Status: Chronic Qualifiers: Chronic kidney disease stage: on chronic dialysis Plan to address problem: Diabetes management as per primary attending (5) Secondary hyperparathyroidism (of renal origin) Current Visit: No Status: Chronic Plan to address problem: cont binders (pt takes auryxia at home, non formulary here, cont renvela 1600mg tid AC) Subjective Date of service: 11/09/19 Principal diagnosis: ESRD, foot ulcer Interval history: pt awake, alert, denies SOB, CP, fever, chills, n/v/d Objective - Vital Signs Vital signs: Vital Signs - 12hr 11/09/19 04:33 Temperature 98.2 F Pulse Rate 79 Respiratory 16 Rate Blood Pressure 132/74 O2 Sat by Pulse 97 Oximetry - General Appearance General appearance: well-developed, well-nourished, appears stated age EENT: ATNC, PERRL, mucous membranes moist Neck: no JVD Respiratory: Present: Clear to Ascultation Cardiology: regular, S1S2 Gastrointestinal: normoactive bowel sounds Integumentary: no rash, other (L BKA) Neurologic: no focal deficit, alert and oriented x3, strength 5/5, CN 3-12 intact Psychiatric: mood/affect appropriate, cooperative - Lab 11/08/19 06:09 11/08/19 08:17 Most recent lab results Calcium 8.6 mg/dL (8.4-10.2) 11/08/19 06:09 Magnesium 2.20 mg/dL (1.7-2.3) 11/08/19 06:09 Medications & Allergies - Medications Allergies/Adverse Reactions: Allergies amlodipine Allergy (Verified 09/26/19 16:04) Itching losartan Allergy (Verified 09/26/19 16:04) Itching sulfamethoxazole [From Bactrim] Allergy (Verified 09/26/19 16:04) Rash trimethoprim [From Bactrim] Allergy (Verified 09/26/19 16:04) Rash morphine Adverse Reaction (Verified 09/26/19 16:04) Vomiting Home Medications: Home Medications Medication Instructions Recorded Confirmed Last Taken Type Epoetin Jacoby 10,000 Unit [Procrit] 5,000 unit IV FRANCOIS PRN vial 07/13/19 11/07/19 Unknown Rx Gabapentin 100 mg PO BID #60 capsule 07/13/19 11/07/19 Unknown Rx Insulin Glargine [Lantus VIAL] 15 units SUB-Q QHS 30 Days units 07/13/19 11/07/19 Unknown Rx Lispro Insulin [HumaLOG] See Protocol SUB-Q ACHS 30 Days 07/13/19 11/07/19 Unk nown Rx units Metoprolol [Lopressor TAB] 100 mg PO BID #60 tablet 07/13/19 11/07/19 Unknown Rx NIFEdipine XL [Procardia Xl] 60 mg PO QDAY #30 tablet 07/13/19 11/07/19 Unknown Rx Torsemide [Demadex] 60 mg PO DAILY 30 Days tablet 07/13/19 11/07/19 Unknown Rx Zolpidem [Ambien] 5 mg PO QHS PRN #15 tablet 07/13/19 11/07/19 Unknown Rx cloNIDine [Catapres] 0.1 mg PO Q12H PRN #60 tablet 07/13/19 11/07/19 Unknown Rx hydrALAZINE [Apresoline TAB] 100 mg PO Q8HR #90 tab 07/13/19 11/07/19 Unknown Rx Sodium Hypochlorite [Dakin's Half 1 applic TP BID #1 bottle 09/21/19 11/07/19 Unknown Rx Strength] Active Medications: Generic Name Dose Route Start Last Admin Trade Name Freq PRN Reason Stop Dose Admin Epoetin Jacoby 5,000 unit 11/07/19 13:01 Procrit IV FRANCOIS PRN Dialysis Folic Acid 1 mg 11/08/19 10:00 11/09/19 09:32 Folvite PO 1 mg QDAY FATMATA Administration Gabapentin 100 mg 11/07/19 22:00 11/08/19 22:09 Gabapentin PO 100 mg BID FATMATA Administration Hydromorphone HCl 1 mg 11/09/19 09:04 11/09/19 09:32 Dilaudid IV 1 mg Q4H PRN Administration Pain , Severe (7-10) Hydroxyzine HCl 10 mg 11/07/19 23:51 11/08/19 00:15 Atarax PO 10 mg Q6H PRN Administration Itching Sodium Chloride 100 mls @ 999 mls/hr 11/07/19 17:05 Nacl 0.9% IV FRANCOIS PRN Hypotension Cefepime HCl 1 gm in 100 mls @ 200 mls/hr 11/07/19 22:00 11/08/19 22:09 Cefepime/Ns 1 Gm/100 Ml IV 200 mls/hr Q24H FATMATA Administration Insulin Glargine 15 units 11/07/19 22:00 11/08/19 22:15 Lantus SUB-Q Not Given QHS FATMATA Insulin Human Lispro 0 unit 11/07/19 16:30 11/09/19 08:42 Humalog SUB-Q Not Given ACHS [facility] Protocol Metoclopramide HCl 5 mg 11/07/19 16:30 11/09/19 09:32 Reglan PO 5 mg ACHS FATMATA Administration Oxycodone/Acetaminophen 1 tab 11/08/19 22:31 Percocet 5/325 PO Q6H PRN Pain, Moderate (4-6) Sevelamer Carbonate 1,600 mg 11/09/19 07:30 11/09/19 09:31 Renvela PO 1,600 mg AC FATMATA Administration Sodium Hypochlorite 1 applic 11/09/19 10:00 Dakin's Full Strength TP Q12H FATMATA
[2019-11-09] MEDS: SODIUM HYPOCHLORITE, DAKIN'S FULL STRENGTH (0.5%) 473 ML TOPICAL SOLN TP SCH ×2 (11:00→22:23)
--- NOTE | 2019-11-09 15:15 | Event Note ---
Date: 11/09/19 Patient's vascular provider with Dr. Spencer. Reviewed patient's outpatient vascular angiogram with Dr. Spencer. Patient has tibiopedal arterial disease. The inflow and femoral-popliteal segment is patent. The patient had adequate blood flow for BKA or AKA. Wound healing continues to be difficult for foot healing due to multiple comorbidites and tibiopedal arterial disease.
--- NOTE | 2019-11-09 15:52 | Progress Note ---
Assessment and Plan - Patient Problems (1) Sepsis Current Visit: Yes Status: Acute Plan to address problem: IV antibiotic therapy, serial lactic acid, Influenza antigen, CBC, CMP, IVF resuscitation therapy, monitor uop q shift. repeat cbc in AM. (2) Foot abscess, right Current Visit: Yes Status: Acute Plan to address problem: Surgical team consulted in ED, patient is pending surgical debridement, IV antibiotic therapy, supportive care. Orthopedic surgery consulted. 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 Dialysis as per renal team, strict I's/O, daily weight, avoid nephrotoxic agents. (5) HLD (hyperlipidemia) Current Visit: No Status: Chronic Qualifiers: Hyperlipidemia type: mixed hyperlipidemia Qualified Code(s): E78.2 - Mixed hyperlipidemia Plan to address problem: Statin therapy, balanced diet (6) HTN (hypertension) Current Visit: No Status: Chronic Qualifiers: Hypertension type: essential hypertension Qualified Code(s): I10 - Essential (primary) hypertension Plan to address problem: Monitor BP every shift, continue medical management. (7) DVT prophylaxis Current Visit: No Status: Acute Plan to address problem: SCD to bilateral lower extremity while in bed, patient ambulatory. History Interval history: 54-year-old female hospital day 3 with end-stage renal disease, diabetes mellitus, right foot abscess complicated by Sepsis. Patient lab and imaging studies reviewed. Patient denies fever, chills, chest pain, palpitations, shortness of breath. Patient pending surgical debridement. Surgical team consulted. Patient acknowledges generalized malaise malaise, runny nose, nonproductive cough. Patient also acknowledges productive fever. Patient complains of worsening right lower extremity pain at the debridement site. Disease education conducted. Patient informed of foot abscess and possible need for amputation. Patient acknowledges understanding care plan. Hospitalist Physical - Constitutional Vitals: Temp Pulse Resp BP Pulse Ox 97.9 F 94 H 14 144/75 95 11/09/19 11:40 11/09/19 11:40 11/09/19 11:40 11/09/19 11:40 11/09/19 11:40 General appearance: Present: mild distress, well-nourished - EENT Eyes: Present: PERRL ENT: hearing intact - Neck Neck: Present: supple - Cardiovascular Rhythm: regular Heart Sounds: Present: S1 & S2 - Extremities Extremity abnormal: edema, ulceration, erythema, pulses diminished, tenderness Peripheral Pulses: abnormal - Abdominal General gastrointestinal: soft, non-tender, non-distended - Integumentary Integumentary: Present: clear, warm, dry - Psychiatric Psychiatric: appropriate mood/affect, cooperative Results - Labs CBC & Chem 7: 11/08/19 06:09 11/08/19 08:17 Labs: Laboratory Last Values WBC 20.0 K/mm3 (4.5-11.0) H 11/08/19 06:09 RBC 4.27 M/mm3 (3.65-5.03) 11/08/19 06:09 Hgb 9.7 gm/dl (10.1-14.3) L 11/08/19 06:09 Hct 30.2 % (30.3-42.9) L 11/08/19 06:09 MCV 71 fl (79-97) L 11/08/19 06:09 MCH 23 pg (28-32) L 11/08/19 06:09 MCHC 32 % (30-34) 11/08/19 06:09 RDW 18.3 % (13.2-15.2) H 11/08/19 06:09 Plt Count 433 K/mm3 (140-440) 11/08/19 06:09 Lymph % (Auto) Brick Setter Operator 11/07/19 21:16 Adams % (Auto) Brick Setter Operator 11/07/19 21:16 Eos % (Auto) Brick Setter Operator 11/07/19 21:16 Baso % (Auto) Brick Setter Operator 11/07/19 21:16 Lymph # Brick Setter Operator 11/07/19 21:16 Adams # Brick Setter Operator 11/07/19 21:16 Eos # Brick Setter Operator 11/07/19 21:16 Baso # Brick Setter Operator 11/07/19 21:16 Add Manual Diff Complete 11/08/19 06:09 Total Counted 100 11/08/19 06:09 Seg Neutrophils % Brick Setter Operator 11/07/19 21:16 Seg Neuts % (Manual) 90.0 % (40.0-70.0) H 11/08/19 06:09 Band Neutrophils % 0 % 11/08/19 06:09 Lymphocytes % (Manual) 6.0 % (13.4-35.0) L 11/08/19 06:09 Reactive Lymphs % (Man) 0 % 11/08/19 06:09 Monocytes % (Manual) 4.0 % (0.0-7.3) 11/08/19 06:09 Eosinophils % (Manual) 0 % (0.0-4.3) 11/08/19 06:09 Basophils % (Manual) 0 % (0.0-1.8) 11/08/19 06:09 Metamyelocytes % 0 % 11/08/19 06:09 Myelocytes % 0 % 11/08/19 06:09 Promyelocytes % 0 % 11/08/19 06:09 Blast Cells % 0 % 11/08/19 06:09 Nucleated RBC % Not Reportable 11/08/19 06:09 Seg Neutrophils # Brick Setter Operator 11/07/19 21:16 Seg Neutrophils # Man 18.0 K/mm3 (1.8-7.7) H 11/08/19 06:09 Band Neutrophils # 0.0 K/mm3 11/08/19 06:09 Lymphocytes # (Manual) 1.2 K/mm3 (1.2-5.4) 11/08/19 06:09 Abs React Lymphs (Man) 0.0 K/mm3 11/08/19 06:09 Monocytes # (Manual) 0.8 K/mm3 (0.0-0.8) 11/08/19 06:09 Eosinophils # (Manual) 0.0 K/mm3 (0.0-0.4) 11/08/19 06:09 Basophils # (Manual) 0.0 K/mm3 (0.0-0.1) 11/08/19 06:09 Metamyelocytes # 0.0 K/mm3 11/08/19 06:09 Myelocytes # 0.0 K/mm3 11/08/19 06:09 Promyelocytes # 0.0 K/mm3 11/08/19 06:09 Blast Cells # 0.0 K/mm3 11/08/19 06:09 WBC Morphology Not Reportable 11/08/19 06:09 Hypersegmented Neuts Not Reportable 11/08/19 06:09 Hyposegmented Neuts Not Reportable 11/08/19 06:09 Hypogranular Neuts Not Reportable 11/08/19 06:09 Smudge Cells Not Reportable 11/08/19 06:09 Toxic Granulation Not Reportable 11/08/19 06:09 Toxic Vacuolation Not Reportable 11/08/19 06:09 Dohle Bodies Not Reportable 11/08/19 06:09 Pelger-Huet Anomaly Not Reportable 11/08/19 06:09 Mary Lou Rods Not Reportable 11/08/19 06:09 Platelet Estimate Consistent w auto 11/08/19 06:09 Clumped Platelets Not Reportable 11/08/19 06:09 Plt Clumps, EDTA Not Reportable 11/08/19 06:09 Large Platelets Few 11/08/19 06:09 Giant Platelets Not Reportable 11/08/19 06:09 Platelet Satelliting Not Reportable 11/08/19 06:09 Plt Morphology Comment Not Reportable 11/08/19 06:09 RBC Morphology Not Reportable 11/08/19 06:09 Dimorphic RBCs Not Reportable 11/08/19 06:09 Polychromasia Not Reportable 11/08/19 06:09 Hypochromasia 1+ 11/08/19 06:09 Poikilocytosis Not Reportable 11/08/19 06:09 Anisocytosis Not Reportable 11/08/19 06:09 Microcytosis Not Reportable 11/08/19 06:09 Macrocytosis Not Reportable 11/08/19 06:09 Spherocytes Not Reportable 11/08/19 06:09 Pappenheimer Bodies Not Reportable 11/08/19 06:09 Sickle Cells Not Reportable 11/08/19 06:09 Target Cells 2+ 11/08/19 06:09 Tear Drop Cells Few 11/08/19 06:09 Ovalocytes Not Reportable 11/08/19 06:09 Helmet Cells Not Reportable 11/08/19 06:09 [place] Bodies Not Reportable 11/08/19 06:09 [place] Rings Not Reportable 11/08/19 06:09 [place] Cells Not Reportable 11/08/19 06:09 Bite Cells Not Reportable 11/08/19 06:09 Crenated Cell Not Reportable 11/08/19 06:09 Elliptocytes Few 11/08/19 06:09 Acanthocytes (Spur) Not Reportable 11/08/19 06:09 Rouleaux Not Reportable 11/08/19 06:09 Hemoglobin C Crystals Not Reportable 11/08/19 06:09 Schistocytes Not Reportable 11/08/19 06:09 Malaria parasites Not Reportable 11/08/19 06:09 Sigifredo Bodies Not Reportable 11/08/19 06:09 Hem Pathologist Commnt No 11/08/19 06:09 Sodium 138 mmol/L (137-145) 11/08/19 06:09 Potassium 3.5 mmol/L (3.6-5.0) L 11/08/19 06:09 Chloride 92.0 mmol/L (98-107) L 11/08/19 06:09 Carbon Dioxide 23 mmol/L (22-30) 11/08/19 06:09 Anion Gap 27 mmol/L 11/08/19 06:09 BUN 34 mg/dL (7-17) H 11/08/19 06:09 Creatinine 5.8 mg/dL (0.7-1.2) H 11/08/19 06:09 Estimated GFR 9 ml/min 11/08/19 06:09 BUN/Creatinine Ratio 6 % 11/08/19 06:09 Glucose 226 mg/dL (65-100) H 11/08/19 08:17 POC Glucose 171 (70-105) H 11/09/19 11:20 Calcium 8.6 mg/dL (8.4-10.2) 11/08/19 06:09 Magnesium 2.20 mg/dL (1.7-2.3) 11/08/19 06:09 Total Bilirubin 0.70 mg/dL (0.1-1.2) 11/08/19 06:09 Direct Bilirubin 0.5 mg/dL (0-0.2) H 11/08/19 06:09 Indirect Bilirubin 0.2 mg/dL 11/08/19 06:09 AST 19 units/L (5-40) 11/08/19 06:09 ALT < 5 units/L (7-56) L 11/08/19 06:09 Alkaline Phosphatase 934 units/L (35-129) H 11/08/19 06:09 Total Protein 8.4 g/dL (6.3-8.2) H 11/08/19 06:09 Albumin 2.7 g/dL (3.9-5) L 11/08/19 06:09 Albumin/Globulin Ratio 0.5 % 11/08/19 06:09 Random Vancomycin 11.9 ug/mL (0-40.0) 11/09/19 07:08 Hepatitis A IgM Ab Non-reactive (NonReactive) 11/07/19 20:19 Hep Bs Antigen Non-reactive (Negative) 11/07/19 20:19 Hep B Core IgM Ab Non-reactive (NonReactive) 11/07/19 20:19 Hepatitis C Antibody Non-reactive (NonReactive) 11/07/19 20:19 Active Medications - Current Medications Current Medications: Generic Name Dose Route Start Last Admin Trade Name Freq PRN Reason Stop Dose Admin Epoetin Jacoby 5,000 unit 11/07/19 13:01 Procrit IV FRANCOIS PRN Dialysis Folic Acid 1 mg 11/08/19 10:00 11/09/19 09:32 Folvite PO 1 mg QDAY FATMATA Administration Gabapentin 100 mg 11/07/19 22:00 11/09/19 10:00 Gabapentin PO 100 mg BID FATMATA Administration Hydrocodone Bit/Homatropine Methylb 10 ml 11/09/19 13:18 Hydromet PO Q6H PRN Cough Hydromorphone HCl 1 mg 11/09/19 09:04 11/09/19 14:30 Dilaudid IV 1 mg Q4H PRN Administration Pain , Severe (7-10) Hydroxyzine HCl 10 mg 11/07/19 23:51 11/08/19 00:15 Atarax PO 10 mg Q6H PRN Administration Itching Sodium Chloride 100 mls @ 999 mls/hr 11/07/19 17:05 Nacl 0.9% IV FRANCOIS PRN Hypotension Cefepime HCl 1 gm in 100 mls @ 200 mls/hr 11/07/19 22:00 11/08/19 22:09 Cefepime/Ns 1 Gm/100 Ml IV 200 mls/hr Q24H FATMATA Administration Vancomycin HCl 1 gm in 250 mls @ 167.007 mls/hr 11/10/19 18:00 Vancomycin/Ns 1 Gm/250 Ml IV TuThSa@1800 FATMATA Insulin Glargine 15 units 11/07/19 22:00 11/08/19 22:15 Lantus SUB-Q Not Given QHS [facility] Insulin Human Lispro 0 unit 11/07/19 16:30 11/09/19 14:26 Humalog SUB-Q 2 unit ACHS FATMATA Administration Protocol Metoclopramide HCl 5 mg 11/07/19 16:30 11/09/19 14:28 Reglan PO 5 mg ACHS FATMATA Administration Oxycodone/Acetaminophen 1 tab 11/08/19 22:31 Percocet 5/325 PO Q6H PRN Pain, Moderate (4-6) Sevelamer Carbonate 1,600 mg 11/09/19 07:30 11/09/19 14:28 Renvela PO 1,600 mg AC FATMATA Administration Sodium Hypochlorite 1 applic 11/09/19 10:00 11/09/19 11:00 Dakin's Full Strength TP 1 applicatio Q12H FATMATA Administration
[2019-11-09] MEDS: HYDROcodone/HOMATROPINE 5-1.5MG /5 ML ORAL LIQD UNIT DOSE PO PRN (17:19)
[2019-11-09] MEDS: CEFEPIME/NS 1 GM/100 ML 1 GM/100 ML BAG IV SCH (22:23)
[2019-11-09] MEDS: INSULIN GLARGINE 100 UNITS/ML SUB-Q SCH (22:29)
[2019-11-10] MEDS: HYDROmorphone 1 MG/1 ML INJ IV PRN ×5 (03:31→21:40)
[2019-11-10] MEDS: METOCLOPRAMIDE 10 MG TAB PO SCH ×4 (08:00→21:45)
[2019-11-10] MEDS: INSULIN LISPRO 100 UNIT/ML SUB-Q SCH ×4 (08:00→21:53)
[2019-11-10] MEDS: SEVELAMER CARBONATE 800 MG TAB PO SCH ×3 (08:00→17:41)
[2019-11-10] MEDS: GABAPENTIN 100 MG CAP PO SCH (14:02)
[2019-11-10] MEDS: FOLIC ACID 1 MG TAB PO SCH (14:02)
--- NOTE | 2019-11-10 14:26 | Progress Note ---
Assessment and Plan - Patient Problems (1) Foot abscess, right Current Visit: Yes Status: Acute Plan to address problem: Status post debridement. Continue antibiotics. Continue management per surgeon (2) End-stage renal disease on hemodialysis Current Visit: No Status: Chronic Plan to address problem: Hemodialysis on a Tuesday, and Tuesday schedule. (3) Hypertensive chronic kidney disease with stage 5 chronic kidney disease or end stage renal disease Current Visit: No Status: Chronic Plan to address problem: Follow-up blood pressure on current medications. (4) Type 2 diabetes mellitus with diabetic chronic kidney disease Current Visit: No Status: Chronic Qualifiers: Chronic kidney disease stage: on chronic dialysis Plan to address problem: Blood sugar management by primary attending. (5) Anemia in chronic kidney disease Current Visit: No Status: Acute Qualifiers: Chronic kidney disease stage: on chronic dialysis Qualified Code(s): N18.6 - End stage renal disease; D63.1 - Anemia in chronic kidney disease; Z99.2 - Dependence on renal dialysis Plan to address problem: Erythropoietin on dialysis Subjective Date of service: 11/10/19 Principal diagnosis: ESRD, foot ulcer Interval history: Patient seen lying in bed. No complaints at this time. Pain in foot is controlled with medication. No shortness of breath, nausea vomiting. Objective - Exam Narrative Exam: Middle-aged -[place] female lying in bed in no acute distress HEENT: NCAT, pink oral mucous membrane Neck: Supple, no venous distention CVS: S1S2 RRR with no murmur, rub or gallop Chest: Clear to auscultation Abdomen: Protuberant, soft, nontender, no organomegaly, bowel sounds are present Extremities: No edema, dressing right foot, left below knee amputation Neuro: Awake, alert no focal deficits - Vital Signs Vital signs: Vital Signs - 12hr 11/10/19 11/10/19 11/10/19 03:31 04:01 05:20 Temperature 98.0 F Pulse Rate 95 H Respiratory 17 17 18 Rate Blood Pressure 133/69 O2 Sat by Pulse 93 Oximetry 11/10/19 11/10/19 11/10/19 08:35 08:45 09:00 Temperature 98.0 F Pulse Rate 90 90 87 Respiratory 18 Rate Blood Pressure 116/65 124/68 121/66 O2 Sat by Pulse Oximetry 11/10/19 11/10/19 11/10/19 09:15 09:19 09:30 Temperature Pulse Rate 87 87 Respiratory 18 Rate Blood Pressure 130/64 126/65 O2 Sat by Pulse Oximetry 11/10/19 11/10/19 11/10/19 09:45 10:00 10:15 Temperature Pulse Rate 85 84 66 Respiratory Rate Blood Pressure 133/68 130/67 129/66 O2 Sat by Pulse Oximetry 11/10/19 11/10/19 11/10/19 10:30 10:45 11:00 Temperature Pulse Rate 85 118 H 81 Respiratory Rate Blood Pressure 127/71 110/60 118/59 O2 Sat by Pulse Oximetry 11/10/19 11/10/19 11/10/19 11:15 11:30 11:45 Temperature Pulse Rate 84 84 83 Respiratory Rate Blood Pressure 129/66 134/67 142/70 O2 Sat by Pulse Oximetry 11/10/19 11/10/19 11/10/19 12:00 12:20 12:53 Temperature 98.0 F 100.0 F H Pulse Rate 82 88 97 H Respiratory 18 18 Rate Blood Pressure 143/64 144/68 142/65 O2 Sat by Pulse 93 Oximetry - Lab 11/08/19 06:09 11/08/19 08:17 Most recent lab results Calcium 8.6 mg/dL (8.4-10.2) 11/08/19 06:09 Magnesium 2.20 mg/dL (1.7-2.3) 11/08/19 06:09 Medications & Allergies - Medications Allergies/Adverse Reactions: Allergies amlodipine Allergy (Verified 09/26/19 16:04) Itching losartan Allergy (Verified 09/26/19 16:04) Itching sulfamethoxazole [From Bactrim] Allergy (Verified 09/26/19 16:04) Rash trimethoprim [From Bactrim] Allergy (Verified 09/26/19 16:04) Rash morphine Adverse Reaction (Verified 09/26/19 16:04) Vomiting Home Medications: Home Medications Medication Instructions Recorded Confirmed Last Taken Type Epoetin Jacoby 10,000 Unit [Procrit] 5,000 unit IV FRANCOIS PRN vial 07/13/19 11/07/19 Unknown Rx Gabapentin 100 mg PO BID #60 capsule 07/13/19 11/07/19 Unknown Rx Insulin Glargine [Lantus VIAL] 15 units SUB-Q QHS 30 Days units 07/13/19 Unknown Rx Lispro Insulin [HumaLOG] See Protocol SUB-Q ACHS 30 Days 07/13/19 11/07/19 Unknown Rx units Metoprolol [Lopressor TAB] 100 mg PO BID #60 tablet 07/13/19 11/07/19 Unknown Rx NIFEdipine XL [Procardia Xl] 60 mg PO QDAY #30 tablet 07/13/19 11/07/19 Unknown Rx Torsemide [Demadex] 60 mg PO DAILY 30 Days tablet 07/13/19 11/07/19 Unknown Rx Zolpidem [Ambien] 5 mg PO QHS PRN #15 tablet 07/13/19 11/07/19 Unknown Rx cloNIDine [Catapres] 0.1 mg PO Q12H PRN #60 tablet 07/13/19 11/07/19 Unknown Rx hydrALAZINE [Apresoline TAB] 100 mg PO Q8HR #90 tab 07/13/19 11/07/19 Unknown Rx Sodium Hypochlorite [Dakin's Half 1 applic TP BID #1 bottle 09/21/19 11/07/19 Unknown Rx Strength] Active Medications: Generic Name Dose Route Start Last Admin Trade Name Freq PRN Reason Stop Dose Admin Epoetin Jacoby 5,000 unit 11/07/19 13:01 11/10/19 11:30 Procrit IV 5,000 unit FRANCOIS PRN Administration Dialysis Folic Acid 1 mg 11/08/19 10:00 11/10/19 14:02 Folvite PO 1 mg QDAY FATMATA Administration Gabapentin 100 mg 11/07/19 22:00 11/10/19 14:02 Gabapentin PO 100 mg BID FATMATA Administration Hydrocodone Bit/Homatropine Methylb 10 ml 11/09/19 13:18 11/09/19 17:19 Hydromet PO 10 ml Q6H PRN Administration Cough Hydromorphone HCl 1 mg 11/09/19 09:04 11/10/19 14:00 Dilaudid IV 1 mg Q4H PRN Administration Pain , Severe (7-10) Hydroxyzine HCl 10 mg 11/07/19 23:51 11/08/19 00:15 Atarax PO 10 mg Q6H PRN Administration Itching Sodium Chloride 100 mls @ 999 mls/hr 11/07/19 17:05 Nacl 0.9% IV FRANCOIS PRN Hypotension Cefepime HCl 1 gm in 100 mls @ 200 mls/hr 11/07/19 22:00 11/09/19 22:23 Cefepime/Ns 1 Gm/100 Ml IV 200 mls/hr Q24H FATMATA Administration Vancomycin HCl 1 gm in 250 mls @ 167.007 mls/hr 11/10/19 18:00 Vancomycin/Ns 1 Gm/250 Ml IV TuThSa@1800 FATMATA Insulin Glargine 15 units 11/07/19 22:00 11/09/19 22:29 Lantus SUB-Q 15 units QHS FATMATA Administration Insulin Human Lispro 0 unit 11/07/19 16:30 11/10/19 08:00 Humalog SUB-Q Not Given ACHS [facility] Protocol Metoclopramide HCl 5 mg 11/07/19 16:30 11/10/19 08:00 Reglan PO Not Given ACHS FATMATA Oxycodone/Acetaminophen 1 tab 11/08/19 22:31 Percocet 5/325 PO Q6H PRN Pain, Moderate (4-6) Sevelamer Carbonate 1,600 mg 11/09/19 07:30 11/10/19 08:00 Renvela PO Not Given AC FATMATA Sodium Hypochlorite 1 applic 11/09/19 10:00 11/09/19 22:23 Dakin's Full Strength TP 1 applicatio Q12H FATMATA Administration
[2019-11-10] MEDS: SODIUM HYPOCHLORITE, DAKIN'S FULL STRENGTH (0.5%) 473 ML TOPICAL SOLN TP SCH ×2 (16:44→21:54)
--- NOTE | 2019-11-10 17:02 | Progress Note ---
Assessment and Plan - Patient Problems (1) Sepsis Current Visit: Yes Status: Acute Plan to address problem: IV antibiotic therapy, serial lactic acid, Influenza antigen, CBC, CMP, IVF resuscitation therapy, monitor uop q shift. repeat cbc in AM. (2) Foot abscess, right Current Visit: Yes Status: Acute Plan to address problem: Surgical team consulted in ED, patient is pending surgical debridement, IV antibiotic therapy, supportive care. Orthopedic surgery consulted. Wound care consulted. 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 Dialysis as per renal team, strict I's/O, daily weight, avoid nephrotoxic agents. (5) HLD (hyperlipidemia) Current Visit: No Status: Chronic Qualifiers: Hyperlipidemia type: mixed hyperlipidemia Qualified Code(s): E78.2 - Mixed hyperlipidemia Plan to address problem: Statin therapy, balanced diet (6) HTN (hypertension) Current Visit: No Status: Chronic Qualifiers: Hypertension type: essential hypertension Qualified Code(s): I10 - Essential (primary) hypertension Plan to address problem: Monitor BP every shift, continue medical management. (7) DVT prophylaxis Current Visit: No Status: Acute Plan to address problem: SCD to bilateral lower extremity while in bed, patient ambulatory. History Interval history: 54-year-old female hospital day 4 with end-stage renal disease, diabetes mellitus, right foot abscess complicated by Sepsis. Patient lab and imaging studies reviewed. Patient denies fever, chills, chest pain, palpitations, shortness of breath. Surgical team consulted. Patient has adequate blood flow for amputation if needed. Discharge planning in a.m. with wound care if no surgical intervention warranted. Patient complains of worsening right lower extremity pain at the debridement site. Disease education conducted. Patient informed of foot abscess and possible need for amputation. Patient acknowledges understanding care plan. Hospitalist Physical - Constitutional Vitals: Temp Pulse Resp BP Pulse Ox 100.0 F H 97 H 18 142/65 93 11/10/19 12:53 11/10/19 12:53 11/10/19 12:53 11/10/19 12:53 11/10/19 12:53 General appearance: Present: mild distress, well-nourished Results - Labs CBC & Chem 7: 11/08/19 06:09 11/08/19 08:17 Labs: Laboratory Last Values WBC 20.0 K/mm3 (4.5-11.0) H 11/08/19 06:09 RBC 4.27 M/mm3 (3.65-5.03) 11/08/19 06:09 Hgb 9.7 gm/dl (10.1-14.3) L 11/08/19 06:09 Hct 30.2 % (30.3-42.9) L 11/08/19 06:09 MCV 71 fl (79-97) L 11/08/19 06:09 MCH 23 pg (28-32) L 11/08/19 06:09 MCHC 32 % (30-34) 11/08/19 06:09 RDW 18.3 % (13.2-15.2) H 11/08/19 06:09 Plt Count 433 K/mm3 (140-440) 11/08/19 06:09 Lymph % (Auto) Seismic Prospecting Observer Helper 11/07/19 21:16 [place] % (Auto) Seismic Prospecting Observer Helper 11/07/19 21:16 Eos % (Auto) Seismic Prospecting Observer Helper 11/07/19 21:16 Baso % (Auto) Seismic Prospecting Observer Helper 11/07/19 21:16 Lymph # Seismic Prospecting Observer Helper 11/07/19 21:16 [place] # Seismic Prospecting Observer Helper 11/07/19 21:16 Eos # Seismic Prospecting Observer Helper 11/07/19 21:16 Baso # Seismic Prospecting Observer Helper 11/07/19 21:16 Add Manual Diff Complete 11/08/19 06:09 Total Counted 100 11/08/19 06:09 Seg Neutrophils % Seismic Prospecting Observer Helper 11/07/19 21:16 Seg Neuts % (Manual) 90.0 % (40.0-70.0) H 11/08/19 06:09 Band Neutrophils % 0 % 11/08/19 06:09 Lymphocytes % (Manual) 6.0 % (13.4-35.0) L 11/08/19 06:09 Reactive Lymphs % (Man) 0 % 11/08/19 06:09 Monocytes % (Manual) 4.0 % (0.0-7.3) 11/08/19 06:09 Eosinophils % (Manual) 0 % (0.0-4.3) 11/08/19 06:09 Basophils % (Manual) 0 % (0.0-1.8) 11/08/19 06:09 Metamyelocytes % 0 % 11/08/19 06:09 Myelocytes % 0 % 11/08/19 06:09 Promyelocytes % 0 % 11/08/19 06:09 Blast Cells % 0 % 11/08/19 06:09 Nucleated RBC % Not Reportable 11/08/19 06:09 Seg Neutrophils # Seismic Prospecting Observer Helper 11/07/19 21:16 Seg Neutrophils # Man 18.0 K/mm3 (1.8-7.7) H 11/08/19 06:09 Band Neutrophils # 0.0 K/mm3 11/08/19 06:09 Lymphocytes # (Manual) 1.2 K/mm3 (1.2-5.4) 11/08/19 06:09 Abs React Lymphs (Man) 0.0 K/mm3 11/08/19 06:09 Monocytes # (Manual) 0.8 K/mm3 (0.0-0.8) 11/08/19 06:09 Eosinophils # (Manual) 0.0 K/mm3 (0.0-0.4) 11/08/19 06:09 Basophils # (Manual) 0.0 K/mm3 (0.0-0.1) 11/08/19 06:09 Metamyelocytes # 0.0 K/mm3 11/08/19 06:09 Myelocytes # 0.0 K/mm3 11/08/19 06:09 Promyelocytes # 0.0 K/mm3 11/08/19 06:09 Blast Cells # 0.0 K/mm3 11/08/19 06:09 WBC Morphology Not Reportable 11/08/19 06:09 Hypersegmented Neuts Not Reportable 11/08/19 06:09 Hyposegmented Neuts Not Reportable 11/08/19 06:09 Hypogranular Neuts Not Reportable 11/08/19 06:09 Smudge Cells Not Reportable 11/08/19 06:09 Toxic Granulation Not Reportable 11/08/19 06:09 Toxic Vacuolation Not Reportable 11/08/19 06:09 Dohle Bodies Not Reportable 11/08/19 06:09 Pelger-Huet Anomaly Not Reportable 11/08/19 06:09 Mary Lou Rods Not Reportable 11/08/19 06:09 Platelet Estimate Consistent w auto 11/08/19 06:09 Clumped Platelets Not Reportable 11/08/19 06:09 Plt Clumps, EDTA Not Reportable 11/08/19 06:09 Large Platelets Few 11/08/19 06:09 Giant Platelets Not Reportable 11/08/19 06:09 Platelet Satelliting Not Reportable 11/08/19 06:09 Plt Morphology Comment Not Reportable 11/08/19 06:09 RBC Morphology Not Reportable 11/08/19 06:09 Dimorphic RBCs Not Reportable 11/08/19 06:09 Polychromasia Not Reportable 11/08/19 06:09 Hypochromasia 1+ 11/08/19 06:09 Poikilocytosis Not Reportable 11/08/19 06:09 Anisocytosis Not Reportable 11/08/19 06:09 Microcytosis Not Reportable 11/08/19 06:09 Macrocytosis Not Reportable 11/08/19 06:09 Spherocytes Not Reportable 11/08/19 06:09 Pappenheimer Bodies Not Reportable 11/08/19 06:09 Sickle Cells Not Reportable 11/08/19 06:09 Target Cells 2+ 11/08/19 06:09 Tear Drop Cells Few 11/08/19 06:09 Ovalocytes Not Reportable 11/08/19 06:09 Helmet Cells Not Reportable 11/08/19 06:09 [place] Bodies Not Reportable 11/08/19 06:09 [place] Rings Not Reportable 11/08/19 06:09 [place] Cells Not Reportable 11/08/19 06:09 Bite Cells Not Reportable 11/08/19 06:09 Crenated Cell Not Reportable 11/08/19 06:09 Elliptocytes Few 11/08/19 06:09 Acanthocytes (Spur) Not Reportable 11/08/19 06:09 Rouleaux Not Reportable 11/08/19 06:09 Hemoglobin C Crystals Not Reportable 11/08/19 06:09 Schistocytes Not Reportable 11/08/19 06:09 Malaria parasites Not Reportable 11/08/19 06:09 Sigifredo Bodies Not Reportable 11/08/19 06:09 Hem Pathologist Commnt No 11/08/19 06:09 Sodium 138 mmol/L (137-145) 11/08/19 06:09 Potassium 3.5 mmol/L (3.6-5.0) L 11/08/19 06:09 Chloride 92.0 mmol/L (98-107) L 11/08/19 06:09 Carbon Dioxide 23 mmol/L (22-30) 11/08/19 06:09 Anion Gap 27 mmol/L 11/08/19 06:09 BUN 34 mg/dL (7-17) H 11/08/19 06:09 Creatinine 5.8 mg/dL (0.7-1.2) H 11/08/19 06:09 Estimated GFR 9 ml/min 11/08/19 06:09 BUN/Creatinine Ratio 6 % 11/08/19 06:09 Glucose 226 mg/dL (65-100) H 11/08/19 08:17 POC Glucose 135 (70-105) H 11/10/19 16:26 Calcium 8.6 mg/dL (8.4-10.2) 11/08/19 06:09 Magnesium 2.20 mg/dL (1.7-2.3) 11/08/19 06:09 Total Bilirubin 0.70 mg/dL (0.1-1.2) 11/08/19 06:09 Direct Bilirubin 0.5 mg/dL (0-0.2) H 11/08/19 06:09 Indirect Bilirubin 0.2 mg/dL 11/08/19 06:09 AST 19 units/L (5-40) 11/08/19 06:09 ALT < 5 units/L (7-56) L 11/08/19 06:09 Alkaline Phosphatase 934 units/L (35-129) H 11/08/19 06:09 Total Protein 8.4 g/dL (6.3-8.2) H 11/08/19 06:09 Albumin 2.7 g/dL (3.9-5) L 11/08/19 06:09 Albumin/Globulin Ratio 0.5 % 11/08/19 06:09 Random Vancomycin 11.9 ug/mL (0-40.0) 11/09/19 07:08 Hepatitis A IgM Ab Non-reactive (NonReactive) 11/07/19 20:19 Hep Bs Antigen Non-reactive (Negative) 11/07/19 20:19 Hep B Core IgM Ab Non-reactive (NonReactive) 11/07/19 20:19 Hepatitis C Antibody Non-reactive (NonReactive) 11/07/19 20:19 Active Medications - Current Medications Current Medications: Generic Name Dose Route Start Last Admin Trade Name Freq PRN Reason Stop Dose Admin Epoetin Jacoby 5,000 unit 11/07/19 13:01 11/10/19 11:30 Procrit IV 5,000 unit FRANCOIS PRN Administration Dialysis Folic Acid 1 mg 11/08/19 10:00 11/10/19 14:02 Folvite PO 1 mg QDAY FATMATA Administration Gabapentin 300 mg 11/10/19 20:00 Gabapentin PO TID FATMATA Hydrocodone Bit/Homatropine Methylb 10 ml 11/09/19 13:18 11/09/19 17:19 Hydromet PO 10 ml Q6H PRN Administration Cough Hydromorphone HCl 1 mg 11/09/19 09:04 11/10/19 14:00 Dilaudid IV 1 mg Q4H PRN Administration Pain , Severe (7-10) Hydroxyzine HCl 10 mg 11/07/19 23:51 11/08/19 00:15 Atarax PO 10 mg Q6H PRN Administration Itching Sodium Chloride 100 mls @ 999 mls/hr 11/07/19 17:05 Nacl 0.9% IV FRANCOIS PRN Hypotension Cefepime HCl 1 gm in 100 mls @ 200 mls/hr 11/07/19 22:00 11/09/19 22:23 Cefepime/Ns 1 Gm/100 Ml IV 200 mls/hr Q24H FATMATA Administration Vancomycin HCl 1 gm in 250 mls @ 167.007 mls/hr 11/10/19 18:00 Vancomycin/Ns 1 Gm/250 Ml IV TuThSa@1800 FATMATA Insulin Glargine 15 units 11/07/19 22:00 11/09/19 22:29 Lantus SUB-Q 15 units QHS FATMATA Administration Insulin Human Lispro 0 unit 11/07/19 16:30 11/10/19 12:00 Humalog SUB-Q Not Given ACHS FATMATA Protocol Metoclopramide HCl 5 mg 11/07/19 16:30 11/10/19 11:30 Reglan PO Not Given ACHS FATMATA Oxycodone/Acetaminophen 1 tab 11/08/19 22:31 Percocet 5/325 PO Q6H PRN Pain, Moderate (4-6) Sevelamer Carbonate 1,600 mg 11/09/19 07:30 11/10/19 11:30 Renvela PO Not Given AC FATMATA Sodium Hypochlorite 1 applic 11/09/19 10:00 11/10/19 16:44 Dakin's Full Strength TP 1 applicatio Q12H FATMATA Administration
[2019-11-10] MEDS: HYDROcodone/HOMATROPINE 5-1.5MG /5 ML ORAL LIQD UNIT DOSE PO PRN ×2 (17:40→23:42)
[2019-11-10] MEDS: VANCOMYCIN/NS 1 GM/250 ML 1 GM/250 ML BAG IV SCH (19:11)
[2019-11-10] MEDS ORDERED: ACETAMINOPHEN 325 MG TAB PO PRN (19:22)
[2019-11-10] MEDS: GABAPENTIN 300 MG CAP PO SCH (20:20)
[2019-11-10] MEDS: INSULIN GLARGINE 100 UNITS/ML SUB-Q SCH (21:46)
[2019-11-10] MEDS: CEFEPIME/NS 1 GM/100 ML 1 GM/100 ML BAG IV SCH (21:48)
[2019-11-10] MEDS ORDERED: SODIUM CHLORIDE*PRIMING MACHINE ONLY FOR DIALYSIS MC ONE (22:30)
[2019-11-11] MEDS: HYDROmorphone 1 MG/1 ML INJ IV PRN ×4 (04:23→18:41)
[2019-11-11] MEDS: HYDROcodone/HOMATROPINE 5-1.5MG /5 ML ORAL LIQD UNIT DOSE PO PRN ×2 (06:50→19:29)
[2019-11-11] MEDS: INSULIN LISPRO 100 UNIT/ML SUB-Q SCH ×4 (07:30→22:30)
[2019-11-11] MEDS: METOCLOPRAMIDE 10 MG TAB PO SCH ×4 (08:46→22:37)
[2019-11-11] MEDS: GABAPENTIN 300 MG CAP PO SCH ×3 (08:47→22:51)
[2019-11-11] MEDS: SEVELAMER CARBONATE 800 MG TAB PO SCH ×3 (08:47→18:41)
[2019-11-11] MEDS: FOLIC ACID 1 MG TAB PO SCH ×2 (08:47→20:27)
[2019-11-11 09:25] LABS: Albumin 2.6 g/dL (3.9-5); Calcium 8.2 mg/dL (8.4-10.2)
--- NOTE | 2019-11-11 10:22 | XRay Report ---
RIGHT TIBIA/FIBULA, 4 VIEWS INDICATION / CLINICAL INFORMATION: diabetic foot ulcer. COMPARISON: Views of the right femur, 11/07/2019. FINDINGS: Right knee arthroplasty is present. There is fracture of the mid tibial shaft. This is involving the distal portion of the tibial component of the arthroplasty. The fibula is intact. Hardware is intact. There is old healed fracture involving the proximal tibia. There is significant soft tissue swelling seen superior to the patella. Small amount of gas is seen i n the soft tissues superior to the patella. Overall there is in creased soft tissue edema throughout the majority of the lower extremity. Marked arterial calcification is noted within appearance usually seen in diabetics. IMPRESSION: 1. Mid tibial diaphyseal fracture involving the tip of the tibial component of the arthroplasty. 2. Diffuse soft tissue swelling throughout the visualized lower extremity. 3. Soft tissue gas is seen surrounding the patella. Please correlate clinically. This is grossly unch anged from recent femoral radiograph of 11/07/2019 Signer Name: Tnoia Antony MD Signed: 11/11/2019 10:18 AM Workstation Name: [email or web address]
[2019-11-11 11:11] LABS: Hematocrit 26.6 % (30.3-42.9); Hemoglobin 8.4 gm/dl (10.1-14.3); Mean Corpuscular HGB Conc 31 % (30-34); Mean Corpuscular Volume 71 fl (79-97); Red Blood Count 3.73 M/mm3 (3.65-5.03)
[2019-11-11 11:12] LABS: Basophils % (Auto) 0.9 % (0.0-1.8); Eosinophils % (Auto) 1.3 % (0.0-4.3); Lymphocytes % (Auto) 8.6 % (13.4-35.0); Monocytes % (Auto) 7.6 % (0.0-7.3); Platelet Count 359 K/mm3 (140-440); Red Cell Distribution Width 18.5 % (13.2-15.2)
[2019-11-11 11:13] LABS: Basophils # (Auto) 0.2 K/mm3 (0.0-0.1); Eosinophils # (Auto) 0.2 K/mm3 (0.0-0.4); Lymphocytes # (Auto) 1.5 K/mm3 (1.2-5.4); Monocytes # (Auto) 1.4 K/mm3 (0.0-0.8)
--- NOTE | 2019-11-11 13:17 | Progress Note ---
Assessment and Plan - Patient Problems (1) Sepsis Current Visit: Yes Status: Acute Plan to address problem: IV antibiotic therapy, serial lactic acid, Influenza antigen, CBC, CMP, IVF resuscitation therapy, monitor uop q shift. repeat cbc in AM. (2) Foot abscess, right Current Visit: Yes Status: Acute Plan to address problem: Surgical team consulted in ED, patient is pending surgical debridement, IV antibiotic therapy, supportive care. Orthopedic surgery consulted. Wound care consulted. 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 Dialysis as per renal team, strict I's/O, daily weight, avoid nephrotoxic agents. (5) HLD (hyperlipidemia) Current Visit: No Status: Chronic Qualifiers: Hyperlipidemia type: mixed hyperlipidemia Qualified Code(s): E78.2 - Mixed hyperlipidemia Plan to address problem: Statin therapy, balanced diet (6) HTN (hypertension) Current Visit: No Status: Chronic Qualifiers: Hypertension type: essential hypertension Qualified Code(s): I10 - Essential (primary) hypertension Plan to address problem: Monitor BP every shift, continue medical management. (7) DVT prophylaxis Current Visit: No Status: Acute Plan to address problem: SCD to bilateral lower extremity while in bed, patient ambulatory. History Interval history: 54-year-old female hospital day 5 with end-stage renal disease, diabetes mellitus, right foot abscess complicated by Sepsis. Patient lab and imaging studies reviewed. Patient denies fever, chills, chest pain, palpitations, shortness of breath but acknowledges pain in her right lower leg at the site of wound debridement. Surgical team consulted. Patient has adequate blood flow for amputation. Patient sepsis has not resolved at this time. Patient continues to have leukocytosis while on antibiotic therapy. Disease education conducted. Repeat x-ray to evaluate for soft tissue gas and periosteal elevation. Patient informed of foot abscess and likely need for amputation. Patient acknowledges understanding care plan. Hospitalist Physical - Constitutional Vitals: Temp Pulse Resp BP Pulse Ox 99.2 F 92 H 20 133/75 96 11/11/19 11:40 11/11/19 11:40 11/11/19 11:40 11/11/19 11:40 11/11/19 11:40 General appearance: Present: mild distress, well-nourished - EENT Eyes: Present: PERRL, EOM intact ENT: hearing intact - Neck Neck: Present: supple - Respiratory Respiratory effort: normal Respiratory: right: CTA - Cardiovascular Rhythm: regular Heart Sounds: Present: S1 & S2 - Extremities Extremity abnormal: edema Peripheral Pulses: within normal limits - Abdominal General gastrointestinal: soft, non-tender, non-distended - Integumentary Integumentary: Present: clear, dry - Psychiatric Psychiatric: appropriate mood/affect, cooperative - Neurologic Neurologic: CNII-XII intact Results - Labs CBC & Chem 7: 11/11/19 10:13 11/11/19 08:41 Labs: Laboratory Last Values WBC 17.9 K/mm3 (4.5-11.0) H 11/11/19 10:13 RBC 3.73 M/mm3 (3.65-5.03) 11/11/19 10:13 Hgb 8.4 gm/dl (10.1-14.3) L 11/11/19 10:13 Hct 26.6 % (30.3-42.9) L 11/11/19 10:13 MCV 71 fl (79-97) L 11/11/19 10:13 MCH 22 pg (28-32) L 11/11/19 10:13 MCHC 31 % (30-34) 11/11/19 10:13 RDW 18.5 % (13.2-15.2) H 11/11/19 10:13 Plt Count 359 K/mm3 (140-440) 11/11/19 10:13 Lymph % (Auto) 8.6 % (13.4-35.0) L 11/11/19 10:13 [place] % (Auto) 7.6 % (0.0-7.3) H 11/11/19 10:13 Eos % (Auto) 1.3 % (0.0-4.3) 11/11/19 10:13 Baso % (Auto) 0.9 % (0.0-1.8) 11/11/19 10:13 Lymph # 1.5 K/mm3 (1.2-5.4) 11/11/19 10:13 [place] # 1.4 K/mm3 (0.0-0.8) H 11/11/19 10:13 Eos # 0.2 K/mm3 (0.0-0.4) 11/11/19 10:13 Baso # 0.2 K/mm3 (0.0-0.1) H 11/11/19 10:13 Add Manual Diff Complete 11/08/19 06:09 Total Counted 100 11/08/19 06:09 Seg Neutrophils % 81.6 % (40.0-70.0) H 11/11/19 10:13 Seg Neuts % (Manual) 90.0 % (40.0-70.0) H 11/08/19 06:09 Band Neutrophils % 0 % 11/08/19 06:09 Lymphocytes % (Manual) 6.0 % (13.4-35.0) L 11/08/19 06:09 Reactive Lymphs % (Man) 0 % 11/08/19 06:09 Monocytes % (Manual) 4.0 % (0.0-7.3) 11/08/19 06:09 Eosinophils % (Manual) 0 % (0.0-4.3) 11/08/19 06:09 Basophils % (Manual) 0 % (0.0-1.8) 11/08/19 06:09 Metamyelocytes % 0 % 11/08/19 06:09 Myelocytes % 0 % 11/08/19 06:09 Promyelocytes % 0 % 11/08/19 06:09 Blast Cells % 0 % 11/08/19 06:09 Nucleated RBC % Not Reportable 11/08/19 06:09 Seg Neutrophils # 14.6 K/mm3 (1.8-7.7) H 11/11/19 10:13 Seg Neutrophils # Man 18.0 K/mm3 (1.8-7.7) H 11/08/19 06:09 Band Neutrophils # 0.0 K/mm3 11/08/19 06:09 Lymphocytes # (Manual) 1.2 K/mm3 (1.2-5.4) 11/08/19 06:09 Abs React Lymphs (Man) 0.0 K/mm3 11/08/19 06:09 Monocytes # (Manual) 0.8 K/mm3 (0.0-0.8) 11/08/19 06:09 Eosinophils # (Manual) 0.0 K/mm3 (0.0-0.4) 11/08/19 06:09 Basophils # (Manual) 0.0 K/mm3 (0.0-0.1) 11/08/19 06:09 Metamyelocytes # 0.0 K/mm3 11/08/19 06:09 Myelocytes # 0.0 K/mm3 11/08/19 06:09 Promyelocytes # 0.0 K/mm3 11/08/19 06:09 Blast Cells # 0.0 K/mm3 11/08/19 06:09 WBC Morphology Not Reportable 11/08/19 06:09 Hypersegmented Neuts Not Reportable 11/08/19 06:09 Hyposegmented Neuts Not Reportable 11/08/19 06:09 Hypogranular Neuts Not Reportable 11/08/19 06:09 Smudge Cells Not Reportable 11/08/19 06:09 Toxic Granulation Not Reportable 11/08/19 06:09 Toxic Vacuolation Not Reportable 11/08/19 06:09 Dohle Bodies Not Reportable 11/08/19 06:09 Pelger-Huet Anomaly Not Reportable 11/08/19 06:09 Mary Lou Rods Not Reportable 11/08/19 06:09 Platelet Estimate Consistent w auto 11/08/19 06:09 Clumped Platelets Not Reportable 11/08/19 06:09 Plt Clumps, EDTA Not Reportable 11/08/19 06:09 Large Platelets Few 11/08/19 06:09 Giant Platelets Not Reportable 11/08/19 06:09 Platelet Satelliting Not Reportable 11/08/19 06:09 Plt Morphology Comment Not Reportable 11/08/19 06:09 RBC Morphology Not Reportable 11/08/19 06:09 Dimorphic RBCs Not Reportable 11/08/19 06:09 Polychromasia Not Reportable 11/08/19 06:09 Hypochromasia 1+ 11/08/19 06:09 Poikilocytosis Not Reportable 11/08/19 06:09 Anisocytosis Not Reportable 11/08/19 06:09 Microcytosis Not Reportable 11/08/19 06:09 Macrocytosis Not Reportable 11/08/19 06:09 Spherocytes Not Reportable 11/08/19 06:09 Pappenheimer Bodies Not Reportable 11/08/19 06:09 Sickle Cells Not Reportable 11/08/19 06:09 Target Cells 2+ 11/08/19 06:09 Tear Drop Cells Few 11/08/19 06:09 Ovalocytes Not Reportable 11/08/19 06:09 Helmet Cells Not Reportable 11/08/19 06:09 [place] Bodies Not Reportable 11/08/19 06:09 [place] Rings Not Reportable 11/08/19 06:09 [place] Cells Not Reportable 11/08/19 06:09 Bite Cells Not Reportable 11/08/19 06:09 Crenated Cell Not Reportable 11/08/19 06:09 Elliptocytes Few 11/08/19 06:09 Acanthocytes (Spur) Not Reportable 11/08/19 06:09 Rouleaux Not Reportable 11/08/19 06:09 Hemoglobin C Crystals Not Reportable 11/08/19 06:09 Schistocytes Not Reportable 11/08/19 06:09 Malaria parasites Not Reportable 11/08/19 06:09 Sigifredo Bodies Not Reportable 11/08/19 06:09 Hem Pathologist Commnt No 11/08/19 06:09 Sodium 136 mmol/L (137-145) L 11/11/19 08:41 Potassium 4.3 mmol/L (3.6-5.0) D 11/11/19 08:41 Chloride 94.6 mmol/L (98-107) L 11/11/19 08:41 Carbon Dioxide 24 mmol/L (22-30) 11/11/19 08:41 Anion Gap 22 mmol/L 11/11/19 08:41 BUN 25 mg/dL (7-17) H 11/11/19 08:41 Creatinine 3.7 mg/dL (0.7-1.2) H 11/11/19 08:41 Estimated GFR 15 ml/min 11/11/19 08:41 BUN/Creatinine Ratio 7 % 11/11/19 08:41 Glucose 56 mg/dL (65-100) L 11/11/19 08:41 POC Glucose 69 (70-105) L 11/11/19 11:49 Calcium 8.2 mg/dL (8.4-10.2) L 11/11/19 08:41 Magnesium 2.20 mg/dL (1.7-2.3) 11/08/19 06:09 Total Bilirubin 0.60 mg/dL (0.1-1.2) 11/11/19 08:41 Direct Bilirubin 0.5 mg/dL (0-0.2) H 11/08/19 06:09 Indirect Bilirubin 0.2 mg/dL 11/08/19 06:09 AST 31 units/L (5-40) 11/11/19 08:41 ALT 8 units/L (7-56) 11/11/19 08:41 Alkaline Phosphatase 893 units/L (35-129) H 11/11/19 08:41 Total Protein 6.9 g/dL (6.3-8.2) 11/11/19 08:41 Albumin 2.6 g/dL (3.9-5) L 11/11/19 08:41 Albumin/Globulin Ratio 0.6 % 11/11/19 08:41 Random Vancomycin 11.9 ug/mL (0-40.0) 11/09/19 07:08 Hepatitis A IgM Ab Non-reactive (NonReactive) 11/07/19 20:19 Hep Bs Antigen Non-reactive (Negative) 11/07/19 20:19 Hep B Core IgM Ab Non-reactive (NonReactive) 11/07/19 20:19 Hepatitis C Antibody Non-reactive (NonReactive) 11/07/19 20:19 Influenza A (Rapid) Negative (Negative) 11/11/19 Unknown Influenza B (Rapid) Negative (Negative) 11/11/19 Unknown Active Medications - Current Medications Current Medications: Generic Name Dose Route Start Last Admin Trade Name Freq PRN Reason Stop Dose Admin Acetaminophen 650 mg 11/10/19 19:22 11/10/19 20:13 Tylenol PO 650 mg Q6H PRN Administration Fever >101 Epoetin Jacoby 5,000 unit 11/07/19 13:01 11/10/19 11:30 Procrit IV 5,000 unit FRANCOIS PRN Administration Dialysis Folic Acid 1 mg 11/08/19 10:00 11/11/19 08:47 Folvite PO 1 mg QDAY FATMATA Administration Gabapentin 300 mg 11/10/19 20:00 11/11/19 08:47 Gabapentin PO 300 mg TID FATMATA Administration Hydrocodone Bit/Homatropine Methylb 10 ml 11/09/19 13:18 11/11/19 06:50 Hydromet PO 10 ml Q6H PRN Administration Cough Hydromorphone HCl 1 mg 11/09/19 09:04 11/11/19 12:53 Dilaudid IV 1 mg Q4H PRN Administration Pain , Severe (7-10) Hydroxyzine HCl 10 mg 11/07/19 23:51 11/08/19 00:15 Atarax PO 10 mg Q6H PRN Administration Itching Sodium Chloride 100 mls @ 999 mls/hr 11/07/19 17:05 Nacl 0.9% IV FRANCOIS PRN Hypotension Cefepime HCl 1 gm in 100 mls @ 200 mls/hr 11/07/19 22:00 11/10/19 21:48 Cefepime/Ns 1 Gm/100 Ml IV 200 mls/hr Q24H FATMATA Administration Vancomycin HCl 1 gm in 250 mls @ 167.007 mls/hr 11/10/19 18:00 11/10/19 19:11 Vancomycin/Ns 1 Gm/250 Ml IV 167.007 mls/hr TuThSa@1800 FATMATA Administration Insulin Glargine 15 units 11/07/19 22:00 11/10/19 21:46 Lantus SUB-Q 15 units QHS FATMATA Administration Insulin Human Lispro 0 unit 11/07/19 16:30 11/11/19 11:30 Humalog SUB-Q Not Given ACHS [facility] Protocol Metoclopramide HCl 5 mg 11/07/19 16:30 11/11/19 12:53 Reglan PO Not Given ACHS [facility] Oxycodone/Acetaminophen 1 tab 11/08/19 22:31 Percocet 5/325 PO Q6H PRN Pain, Moderate (4-6) Sevelamer Carbonate 1,600 mg 11/09/19 07:30 11/11/19 11:30 Renvela PO 1,600 mg AC FATMATA Administration Sodium Hypochlorite 1 applic 11/09/19 10:00 11/10/19 21:54 Radha's Full Strength TP 1 applicatio Q12H FATMATA Administration
--- NOTE | 2019-11-11 14:50 | Progress Note ---
Assessment and Plan - Patient Problems (1) Foot abscess, right Current Visit: Yes Status: Acute Plan to address problem: Status post debridement. Continue antibiotics. Continue management per surgeon (2) End-stage renal disease on hemodialysis Current Visit: No Status: Chronic Plan to address problem: Hemodialysis on a Tuesday, and Tuesday schedule. (3) Hypertensive chronic kidney disease with stage 5 chronic kidney disease or end stage renal disease Current Visit: No Status: Chronic Plan to address problem: Follow-up blood pressure on current medications. (4) Type 2 diabetes mellitus with diabetic chronic kidney disease Current Visit: No Status: Chronic Qualifiers: Chronic kidney disease stage: on chronic dialysis Plan to address problem: Blood sugar management by primary attending. (5) Anemia in chronic kidney disease Current Visit: No Status: Acute Qualifiers: Chronic kidney disease stage: on chronic dialysis Qualified Code(s): N18.6 - End stage renal disease; D63.1 - Anemia in chronic kidney disease; Z99.2 - Dependence on renal dialysis Plan to address problem: Erythropoietin on dialysis Subjective Date of service: 11/11/19 Principal diagnosis: ESRD, foot ulcer Interval history: Patient seen lying in bed. No complaints at this time. Pain in foot is controlled with medication. No shortness of breath . She had nausea and vomiting this morning but it has resolved. Objective - Exam Narrative Exam: Middle-aged -[place]i female lying in bed in no acute distress HEENT: NCAT, pink oral mucous membrane Neck: Supple, no venous distention CVS: S1S2 RRR with no murmur, rub or gallop Chest: Clear to auscultation Abdomen: Protuberant, soft, nontender, no organomegaly, bowel sounds are present Extremities: No edema, dressing right foot, left below knee amputation Neuro: Awake, alert no focal deficits - Vital Signs Vital signs: Vital Signs - 12hr 11/11/19 11/11/19 11/11/19 04:23 06:07 11:40 Temperature 98.0 F 99.2 F Pulse Rate 100 H 92 H Respiratory 18 18 20 Rate Blood Pressure 126/72 133/75 O2 Sat by Pulse 91 96 Oximetry - Lab 11/11/19 10:13 11/11/19 08:41 Most recent lab results Calcium 8.2 mg/dL (8.4-10.2) L 11/11/19 08:41 Magnesium 2.20 mg/dL (1.7-2.3) 11/08/19 06:09 Medications & Allergies - Medications Allergies/Adverse Reactions: Allergies amlodipine Allergy (Verified 09/26/19 16:04) Itching losartan Allergy (Verified 09/26/19 16:04) Itching sulfamethoxazole [From Bactrim] Allergy (Verified 09/26/19 16:04) Rash trimethoprim [From Bactrim] Allergy (Verified 09/26/19 16:04) Rash morphine Adverse Reaction (Verified 09/26/19 16:04) Vomiting Home Medications: Home Medications Medication Instructions Recorded Confirmed Last Taken Type Epoetin Jacoby 10,000 Unit [Procrit] 5,000 unit IV FRANCOIS PRN vial 07/13/19 11/07/19 Unknown Rx Gabapentin 100 mg PO BID #60 capsule 07/13/19 11/07/19 Unknown Rx Insulin Glargine [Lantus VIAL] 15 units SUB-Q QHS 30 Days units 07/13/19 11/07/19 Unknown Rx Lispro Insulin [HumaLOG] See Protocol SUB-Q ACHS 30 Days 07/13/19 11/07/19 Unknown Rx units Metoprolol [Lopressor TAB] 100 mg PO BID #60 tablet 07/13/19 11/07/19 Unknown Rx NIFEdipine XL [Procardia Xl] 60 mg PO QDAY #30 tablet 07/13/19 11/07/19 Unknown Rx Torsemide [Demadex] 60 mg PO DAILY 30 Days tablet 07/13/19 11/07/19 Unknown Rx Zolpidem [Ambien] 5 mg PO QHS PRN #15 tablet 07/13/19 11/07/19 Unknown Rx cloNIDine [Catapres] 0.1 mg PO Q12H PRN #60 tablet 07/13/19 11/07/19 Unknown Rx hydrALAZINE [Apresoline TAB] 100 mg PO Q8HR #90 tab 07/13/19 11/07/19 Unknown Rx Sodium Hypochlorite [Dakin's Half 1 applic TP BID #1 bottle 09/21/19 11/07/19 Unknown Rx Strength] Active Medications: Generic Name Dose Route Start Last Admin Trade Name Freq PRN Reason Stop Dose Admin Acetaminophen 650 mg 11/10/19 19:22 11/10/19 20:13 Tylenol PO 650 mg Q6H PRN Administration Fever >101 Epoetin Jacoby 5,000 unit 11/07/19 13:01 11/10/19 11:30 Procrit IV 5,000 unit FRANCOIS PRN Administration Dialysis Folic Acid 1 mg 11/08/19 10:00 11/11/19 08:47 Folvite PO 1 mg QDAY FATMATA Administration Gabapentin 300 mg 11/10/19 20:00 11/11/19 08:47 Gabapentin PO 300 mg TID FATMATA Administration Hydrocodone Bit/Homatropine Methylb 10 ml 11/09/19 13:18 11/11/19 06:50 Hydromet PO 10 ml Q6H PRN Administration Cough Hydromorphone HCl 1 mg 11/09/19 09:04 11/11/19 12:53 Dilaudid IV 1 mg Q4H PRN Administration Pain , Severe (7-10) Hydroxyzine HCl 10 mg 11/07/19 23:51 11/08/19 00:15 Atarax PO 10 mg Q6H PRN Administration Itching Sodium Chloride 100 mls @ 999 mls/hr 11/07/19 17:05 Nacl 0.9% IV FRANCOIS PRN Hypotension Cefepime HCl 1 gm in 100 mls @ 200 mls/hr 11/07/19 22:00 11/10/19 21:48 Cefepime/Ns 1 Gm/100 Ml IV 200 mls/hr Q24H FATMATA Administration Vancomycin HCl 1 gm in 250 mls @ 167.007 mls/hr 11/10/19 18:00 11/10/19 19:11 Vancomycin/Ns 1 Gm/250 Ml IV 167.007 mls/hr [id number]@1800 FATMATA Administration Insulin Glargine 15 units 11/07/19 22:00 11/10/19 21:46 Lantus SUB-Q 15 units QHS [facility] Administration Insulin Human Lispro 0 unit 11/07/19 16:30 11/11/19 11:30 Humalog SUB-Q Not Given [facility] Protocol Metoclopramide HCl 5 mg 11/07/19 16:30 11/11/19 12:53 Reglan PO Not Given [facility] Oxycodone/Acetaminophen 1 tab 11/08/19 22:31 Percocet 5/325 PO Q6H PRN Pain, Moderate (4-6) Sevelamer Carbonate 1,600 mg 11/09/19 07:30 11/11/19 11:30 Renvela PO 1,600 mg AC FATMATA Administration Sodium Hypochlorite 1 applic 11/09/19 10:00 11/10/19 21:54 Josein's Full Strength TP 1 applicatio Q12H FATMATA Administration
[2019-11-11] MEDS: SODIUM HYPOCHLORITE, DAKIN'S FULL STRENGTH (0.5%) 473 ML TOPICAL SOLN TP SCH (19:00)
[2019-11-11] MEDS: INSULIN GLARGINE 100 UNITS/ML SUB-Q SCH (22:50)
[2019-11-11] MEDS: CEFEPIME/NS 1 GM/100 ML 1 GM/100 ML BAG IV SCH (22:53)
[2019-11-12] MEDS: SODIUM HYPOCHLORITE, DAKIN'S FULL STRENGTH (0.5%) 473 ML TOPICAL SOLN TP SCH ×3 (02:25→22:40)
[2019-11-12] MEDS: HYDROmorphone 1 MG/1 ML INJ IV PRN ×5 (02:25→23:37)
[2019-11-12] MEDS: INSULIN LISPRO 100 UNIT/ML SUB-Q SCH ×4 (08:34→22:17)
[2019-11-12] MEDS: METOCLOPRAMIDE 10 MG TAB PO SCH ×4 (08:34→22:19)
[2019-11-12] MEDS: GABAPENTIN 300 MG CAP PO SCH ×3 (09:02→20:19)
[2019-11-12] MEDS: SEVELAMER CARBONATE 800 MG TAB PO SCH ×3 (09:02→17:06)
[2019-11-12] MEDS: HYDROcodone/HOMATROPINE 5-1.5MG /5 ML ORAL LIQD UNIT DOSE PO PRN ×2 (09:04→17:06)
[2019-11-12] MEDS: FOLIC ACID 1 MG TAB PO SCH (09:10)
--- NOTE | 2019-11-12 09:26 | Progress Note ---
Assessment and Plan - Patient Problems (1) Foot abscess, right Current Visit: Yes Status: Acute Plan to address problem: Continue current antibiotic regimen, and please ensure that antibiotics are dosed appropriately for her diminished renal function. S/P debridement. Further recommendations per surgery, (2) ESRD (end stage renal disease) Current Visit: No Status: Chronic Plan to address problem: Continue on TTS HD schedule. (3) Hypertensive chronic kidney disease with stage 5 chronic kidney disease or end stage renal disease Current Visit: No Status: Chronic Plan to address problem: Monitor blood pressures with current regimen. (4) Type 2 diabetes mellitus with diabetic chronic kidney disease Current Visit: No Status: Chronic Qualifiers: Chronic kidney disease stage: on chronic dialysis Plan to address problem: DM management per primary attending. (5) Anemia in chronic illness Current Visit: No Status: Chronic Plan to address problem: XI therapy with HD sessions. Subjective Date of service: 11/12/19 Principal diagnosis: ESRD, foot ulcer Interval history: No acute complaints. Objective - Vital Signs Vital signs: Vital Signs - 12hr 11/11/19 11/12/19 11/12/19 22:51 02:25 04:07 Temperature 100.3 F H 99.6 F Pulse Rate 89 89 Respiratory 18 18 20 Rate Blood Pressure 102/54 Blood Pressure 121/62 [Right] O2 Sat by Pulse 94 91 Oximetry - General Appearance General appearance: well-developed, well-nourished, appears stated age EENT: ATNC, PERRL Neck: no JVD, no thyromegaly Respiratory: Present: Clear to Ascultation Cardiology: regular, S1S2 Gastrointestinal: normal, normoactive bowel sounds Integumentary: warm and dry Neurologic: no focal deficit Psychiatric: cooperative - Lab 11/11/19 10:13 11/11/19 08:41 Most recent lab results Calcium 8.2 mg/dL (8.4-10.2) L 11/11/19 08:41 Magnesium 2.20 mg/dL (1.7-2.3) 11/08/19 06:09 - Allied health notes Allied health notes reviewed: nursing Medications & Allergies - Medications Allergies/Adverse Reactions: Allergies amlodipine Allergy (Verified 09/26/19 16:04) Itching losartan Allergy (Verified 09/26/19 16:04) Itching sulfamethoxazole [From Bactrim] Allergy (Verified 09/26/19 16:04) Rash trimethoprim [From Bactrim] Allergy (Verified 09/26/19 16:04) Rash morphine Adverse Reaction (Verified 09/26/19 16:04) Vomiting Home Medications: Home Medications Medication Instructions Recorded Confirmed Last Taken Type Epoetin Jacoby 10,000 Unit [Procrit] 5,000 unit IV FRANCOIS PRN vial 07/13/19 11/07/19 Unknown Rx Gabapentin 100 mg PO BID #60 capsule 07/13/19 11/07/19 Unknown Rx Insulin Glargine [Lantus VIAL] 15 units SUB-Q QHS 30 Days units 07/13/19 11/07/19 Unknown Rx Lispro Insulin [HumaLOG] See Protocol SUB-Q ACHS 30 Days 07/13/19 11/07/19 Unknown Rx units Metoprolol [Lopressor TAB] 100 mg PO BID #60 tablet 07/13/19 11/07/19 Unknown Rx NIFEdipine XL [Procardia Xl] 60 mg PO QDAY #30 tablet 07/13/19 11/07/19 Unknown Rx Torsemide [Demadex] 60 mg PO DAILY 30 Days tablet 07/13/19 11/07/19 Unknown Rx Zolpidem [Ambien] 5 mg PO QHS PRN #15 tablet 07/13/19 11/07/19 Unknown Rx cloNIDine [Catapres] 0.1 mg PO Q12H PRN #60 tablet 07/13/19 11/07/19 Unknown Rx hydrALAZINE [Apresoline TAB] 100 mg PO Q8HR #90 tab 07/13/19 11/07/19 Unknown Rx Sodium Hypochlorite [Dakin's Half 1 applic TP BID #1 bottle 09/21/19 11/07/19 Unknown Rx Strength] Active Medications: Generic Name Dose Route Start Last Admin Trade Name Freq PRN Reason Stop Dose Admin Acetaminophen 650 mg 11/10/19 19:22 11/10/19 20:13 Tylenol PO 650 mg Q6H PRN Administration Fever >101 Epoetin Jacoby 5,000 unit 11/07/19 13:01 11/10/19 11:30 Procrit IV 5,000 unit FRANCOIS PRN Administration Dialysis Folic Acid 1 mg 11/08/19 10:00 11/12/19 09:10 Folvite PO 1 mg QDAY FATMATA Administration Gabapentin 300 mg 11/10/19 20:00 11/12/19 09:02 Gabapentin PO 300 mg TID FATMATA Administration Hydrocodone Bit/Homatropine Methylb 10 ml 11/09/19 13:18 11/12/19 09:04 Hydromet PO 10 ml Q6H PRN Administration Cough Hydromorphone HCl 1 mg 11/09/19 09:04 11/12/19 09:03 Dilaudid IV 1 mg Q4H PRN Administration Pain , Severe (7-10) Hydroxyzine HCl 10 mg 11/07/19 23:51 11/08/19 00:15 Atarax PO 10 mg Q6H PRN Administration Itching Sodium Chloride 100 mls @ 999 mls/hr 11/07/19 17:05 Nacl 0.9% IV FRANCOIS PRN Hypotension Cefepime HCl 1 gm in 100 mls @ 200 mls/hr 11/07/19 22:00 11/11/19 22:53 Cefepime/Ns 1 Gm/100 Ml IV 200 mls/hr Q24H FATMATA Administration Vancomycin HCl 1 gm in 250 mls @ 167.007 mls/hr 11/10/19 18:00 11/10/19 19:11 Vancomycin/Ns 1 Gm/250 Ml IV 167.007 mls/hr [id number]@1800 FATMATA Administration Insulin Glargine 15 units 11/07/19 22:00 11/11/19 22:50 Lantus SUB-Q Not Given QHS [facility] Insulin Human Lispro 0 unit 11/07/19 16:30 11/12/19 08:34 Humalog SUB-Q Not Given ACHS [facility] Protocol Metoclopramide HCl 5 mg 11/07/19 16:30 11/12/19 08:34 Reglan PO Not Given [facility] Oxycodone/Acetaminophen 1 tab 11/08/19 22:31 Percocet 5/325 PO Q6H PRN Pain, Moderate (4-6) Sevelamer Carbonate 1,600 mg 11/09/19 07:30 11/12/19 09:02 Renvela PO 1,600 mg AC FATMATA Administration Sodium Hypochlorite 1 applic 11/09/19 10:00 11/12/19 09:11 Dakin's Full Strength TP 1 applicatio Q12H FATMATA Administration
[2019-11-12 10:54] LABS: Mean Corpuscular HGB Conc 31 % (30-34); Mean Corpuscular Volume 70 fl (79-97); Platelet Count 389 K/mm3 (140-440); Red Cell Distribution Width 18.2 % (13.2-15.2)
[2019-11-12 11:15] LABS: Albumin 2.7 g/dL (3.9-5); Calcium 8.9 mg/dL (8.4-10.2)
--- NOTE | 2019-11-12 13:14 | Progress Note ---
Assessment and Plan - Patient Problems (1) Sepsis Current Visit: Yes Status: Acute Plan to address problem: IV antibiotic therapy, serial lactic acid, Influenza antigen, CBC, CMP, IVF resuscitation therapy, monitor uop q shift. repeat cbc in AM. (2) Foot abscess, right Current Visit: Yes Status: Acute Plan to address problem: Surgical team consulted in ED, IV antibiotic therapy, supportive care. Orthopedic surgery consulted. Wound care consulted. 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 Dialysis as per renal team, strict I's/O, daily weight, avoid nephrotoxic agents. (5) HLD (hyperlipidemia) Current Visit: No Status: Chronic Qualifiers: Hyperlipidemia type: mixed hyperlipidemia Qualified Code(s): E78.2 - Mixed hyperlipidemia Plan to address problem: Statin therapy, balanced diet (6) HTN (hypertension) Current Visit: No Status: Chronic Qualifiers: Hypertension type: essential hypertension Qualified Code(s): I10 - Essential (primary) hypertension Plan to address problem: Monitor BP every shift, continue medical management. (7) DVT prophylaxis Current Visit: No Status: Acute Plan to address problem: SCD to bilateral lower extremity while in bed, patient ambulatory. History Interval history: 54-year-old female hospital day 6 with end-stage renal disease, diabetes mellitus, right foot abscess complicated by Sepsis. Patient lab and imaging studies reviewed. Patient denies fever, chills, chest pain, palpitations, shortness of breath but acknowledges continued pain in her right lower leg at the site of wound debridement. Surgical team consulted. Patient has adequate blood flow for amputation. Patient sepsis has not resolved at this time. Patient continues to have leukocytosis and sepsis while on antibiotic therapy. Suspect Osteomyelitis. Disease education conducted. Patient informed of foot abscess and likely need for amputation. Patient acknowledges understanding care plan. Pending Ortho reevaluation. Hospitalist Physical - Constitutional Vitals: Temp Pulse Resp BP Pulse Ox 99.2 F 82 20 128/68 95 11/12/19 12:18 11/12/19 12:18 11/12/19 12:18 11/12/19 12:18 11/12/19 12:18 General appearance: Present: mild distress, well-nourished - EENT Eyes: Present: PERRL, EOM intact ENT: hearing intact - Neck Neck: Present: supple - Respiratory Respiratory: bilateral: CTA - Cardiovascular Rhythm: regular Heart Sounds: Present: S1 & S2 - Extremities Extremities: no ischemia Extremity abnormal: edema, erythema Peripheral Pulses: within normal limits - Abdominal General gastrointestinal: soft, non-tender, non-distended - Integumentary Integumentary: Present: clear, warm, dry - Psychiatric Psychiatric: appropriate mood/affect, cooperative - Neurologic Neurologic: CNII-XII intact Results - Labs CBC & Chem 7: 11/12/19 10:33 11/12/19 10:33 Labs: Laboratory Last Values WBC 17.9 K/mm3 (4.5-11.0) H 11/12/19 10:33 RBC 3.70 M/mm3 (3.65-5.03) 11/12/19 10:33 Hgb 8.0 gm/dl (10.1-14.3) L 11/12/19 10:33 Hct 26.0 % (30.3-42.9) L 11/12/19 10:33 MCV 70 fl (79-97) L 11/12/19 10:33 MCH 22 pg (28-32) L 11/12/19 10:33 MCHC 31 % (30-34) 11/12/19 10:33 RDW 18.2 % (13.2-15.2) H 11/12/19 10:33 Plt Count 389 K/mm3 (140-440) 11/12/19 10:33 Lymph % (Auto) 8.6 % (13.4-35.0) L 11/11/19 10:13 Marion % (Auto) 7.6 % (0.0-7.3) H 11/11/19 10:13 Eos % (Auto) 1.3 % (0.0-4.3) 11/11/19 10:13 Baso % (Auto) 0.9 % (0.0-1.8) 11/11/19 10:13 Lymph # 1.5 K/mm3 (1.2-5.4) 11/11/19 10:13 Marion # 1.4 K/mm3 (0.0-0.8) H 11/11/19 10:13 Eos # 0.2 K/mm3 (0.0-0.4) 11/11/19 10:13 Baso # 0.2 K/mm3 (0.0-0.1) H 11/11/19 10:13 Add Manual Diff Complete 11/08/19 06:09 Total Counted 100 11/08/19 06:09 Seg Neutrophils % 81.6 % (40.0-70.0) H 11/11/19 10:13 Seg Neuts % (Manual) 90.0 % (40.0-70.0) H 11/08/19 06:09 Band Neutrophils % 0 % 11/08/19 06:09 Lymphocytes % (Manual) 6.0 % (13.4-35.0) L 11/08/19 06:09 Reactive Lymphs % (Man) 0 % 11/08/19 06:09 Monocytes % (Manual) 4.0 % (0.0-7.3) 11/08/19 06:09 Eosinophils % (Manual) 0 % (0.0-4.3) 11/08/19 06:09 Basophils % (Manual) 0 % (0.0-1.8) 11/08/19 06:09 Metamyelocytes % 0 % 11/08/19 06:09 Myelocytes % 0 % 11/08/19 06:09 Promyelocytes % 0 % 11/08/19 06:09 Blast Cells % 0 % 11/08/19 06:09 Nucleated RBC % Not Reportable 11/08/19 06:09 Seg Neutrophils # 14.6 K/mm3 (1.8-7.7) H 11/11/19 10:13 Seg Neutrophils # Man 18.0 K/mm3 (1.8-7.7) H 11/08/19 06:09 Band Neutrophils # 0.0 K/mm3 11/08/19 06:09 Lymphocytes # (Manual) 1.2 K/mm3 (1.2-5.4) 11/08/19 06:09 Abs React Lymphs (Man) 0.0 K/mm3 11/08/19 06:09 Monocytes # (Manual) 0.8 K/mm3 (0.0-0.8) 11/08/19 06:09 Eosinophils # (Manual) 0.0 K/mm3 (0.0-0.4) 11/08/19 06:09 Basophils # (Manual) 0.0 K/mm3 (0.0-0.1) 11/08/19 06:09 Metamyelocytes # 0.0 K/mm3 11/08/19 06:09 Myelocytes # 0.0 K/mm3 11/08/19 06:09 Promyelocytes # 0.0 K/mm3 11/08/19 06:09 Blast Cells # 0.0 K/mm3 11/08/19 06:09 WBC Morphology Not Reportable 11/08/19 06:09 Hypersegmented Neuts Not Reportable 11/08/19 06:09 Hyposegmented Neuts Not Reportable 11/08/19 06:09 Hypogranular Neuts Not Reportable 11/08/19 06:09 Smudge Cells Not Reportable 11/08/19 06:09 Toxic Granulation Not Reportable 11/08/19 06:09 Toxic Vacuolation Not Reportable 11/08/19 06:09 Dohle Bodies Not Reportable 11/08/19 06:09 Pelger-Huet Anomaly Not Reportable 11/08/19 06:09 Mary Lou Rods Not Reportable 11/08/19 06:09 Platelet Estimate Consistent w auto 11/08/19 06:09 Clumped Platelets Not Reportable 11/08/19 06:09 Plt Clumps, EDTA Not Reportable 11/08/19 06:09 Large Platelets Few 11/08/19 06:09 Giant Platelets Not Reportable 11/08/19 06:09 Platelet Satelliting Not Reportable 11/08/19 06:09 Plt Morphology Comment Not Reportable 11/08/19 06:09 RBC Morphology Not Reportable 11/08/19 06:09 Dimorphic RBCs Not Reportable 11/08/19 06:09 Polychromasia Not Reportable 11/08/19 06:09 Hypochromasia 1+ 11/08/19 06:09 Poikilocytosis Not Reportable 11/08/19 06:09 Anisocytosis Not Reportable 11/08/19 06:09 Microcytosis Not Reportable 11/08/19 06:09 Macrocytosis Not Reportable 11/08/19 06:09 Spherocytes Not Reportable 11/08/19 06:09 Pappenheimer Bodies Not Reportable 11/08/19 06:09 Sickle Cells Not Reportable 11/08/19 06:09 Target Cells 2+ 11/08/19 06:09 Tear Drop Cells Few 11/08/19 06:09 Ovalocytes Not Reportable 11/08/19 06:09 Helmet Cells Not Reportable 11/08/19 06:09 Nelson-May Bodies Not Reportable 11/08/19 06:09 [place] Rings Not Reportable 11/08/19 06:09 Gunlock Cells Not Reportable 11/08/19 06:09 Bite Cells Not Reportable 11/08/19 06:09 Crenated Cell Not Reportable 11/08/19 06:09 Elliptocytes Few 11/08/19 06:09 Acanthocytes (Spur) Not Reportable 11/08/19 06:09 Rouleaux Not Reportable 11/08/19 06:09 Hemoglobin C Crystals Not Reportable 11/08/19 06:09 Schistocytes Not Reportable 11/08/19 06:09 Malaria parasites Not Reportable 11/08/19 06:09 Sigifredo Bodies Not Reportable 11/08/19 06:09 Hem Pathologist Commnt No 11/08/19 06:09 Sodium 133 mmol/L (137-145) L 11/12/19 10:33 Potassium 4.6 mmol/L (3.6-5.0) 11/12/19 10:33 Chloride 89.4 mmol/L (98-107) L 11/12/19 10:33 Carbon Dioxide 23 mmol/L (22-30) 11/12/19 10:33 Anion Gap 25 mmol/L 11/12/19 10:33 BUN 35 mg/dL (7-17) H 11/12/19 10:33 Creatinine 4.5 mg/dL (0.7-1.2) H 11/12/19 10:33 Estimated GFR 12 ml/min 11/12/19 10:33 BUN/Creatinine Ratio 8 % 11/12/19 10:33 Glucose 101 mg/dL (65-100) H 11/12/19 10:33 POC Glucose 112 (70-105) H 11/12/19 07:59 Calcium 8.9 mg/dL (8.4-10.2) 11/12/19 10:33 Magnesium 2.20 mg/dL (1.7-2.3) 11/08/19 06:09 Total Bilirubin 0.90 mg/dL (0.1-1.2) 11/12/19 10:33 Direct Bilirubin 0.5 mg/dL (0-0.2) H 11/08/19 06:09 Indirect Bilirubin 0.2 mg/dL 11/08/19 06:09 AST 25 units/L (5-40) 11/12/19 10:33 ALT 7 units/L (7-56) 11/12/19 10:33 Alkaline Phosphatase 882 units/L (35-129) H 11/12/19 10:33 Total Protein 8.1 g/dL (6.3-8.2) 11/12/19 10:33 Albumin 2.7 g/dL (3.9-5) L 11/12/19 10:33 Albumin/Globulin Ratio 0.5 % 11/12/19 10:33 Random Vancomycin 11.9 ug/mL (0-40.0) 11/09/19 07:08 Hepatitis A IgM Ab Non-reactive (NonReactive) 11/07/19 20:19 Hep Bs Antigen Non-reactive (Negative) 11/07/19 20:19 Hep B Core IgM Ab Non-reactive (NonReactive) 11/07/19 20:19 Hepatitis C Antibody Non-reactive (NonReactive) 11/07/19 20:19 Influenza A (Rapid) Negative (Negative) 11/11/19 Unknown Influenza B (Rapid) Negative (Negative) 11/11/19 Unknown Active Medications - Current Medications Current Medications: Generic Name Dose Route Start Last Admin Trade Name Freq PRN Reason Stop Dose Admin Acetaminophen 650 mg 11/10/19 19:22 11/10/19 20:13 Tylenol PO 650 mg Q6H PRN Administration Fever >101 Epoetin Jacoby 5,000 unit 11/07/19 13:01 11/10/19 11:30 Procrit IV 5,000 unit FRANCOIS PRN Administration Dialysis Folic Acid 1 mg 11/08/19 10:00 11/12/19 09:10 Folvite PO 1 mg QDAY FATMATA Administration Gabapentin 300 mg 11/10/19 20:00 11/12/19 09:02 Gabapentin PO 300 mg TID FATMATA Administration Hydrocodone Bit/Homatropine Methylb 10 ml 11/09/19 13:18 11/12/19 09:04 Hydromet PO 10 ml Q6H PRN Administration Cough Hydromorphone HCl 1 mg 11/09/19 09:04 11/12/19 09:03 Dilaudid IV 1 mg Q4H PRN Administration Pain , Severe (7-10) Hydroxyzine HCl 10 mg 11/07/19 23:51 11/08/19 00:15 Atarax PO 10 mg Q6H PRN Administration Itching Sodium Chloride 100 mls @ 999 mls/hr 11/07/19 17:05 Nacl 0.9% IV FRANCOIS PRN Hypotension Cefepime HCl 1 gm in 100 mls @ 200 mls/hr 11/07/19 22:00 11/11/19 22:53 Cefepime/Ns 1 Gm/100 Ml IV 200 mls/hr Q24H FATMATA Administration Vancomycin HCl 1 gm in 250 mls @ 167.007 mls/hr 11/10/19 18:00 11/10/19 19:11 Vancomycin/Ns 1 Gm/250 Ml IV 167.007 mls/hr [id number]@1800 FATMATA Administration Insulin Glargine 15 units 11/07/19 22:00 11/11/19 22:50 Lantus SUB-Q Not Given QHS [facility] Insulin Human Lispro 0 unit 11/07/19 16:30 11/12/19 12:53 Humalog SUB-Q Not Given [facility] Protocol Metoclopramide HCl 5 mg 11/07/19 16:30 11/12/19 12:53 Reglan PO Not Given [facility] Oxycodone/Acetaminophen 1 tab 11/08/19 22:31 Percocet 5/325 PO Q6H PRN Pain, Moderate (4-6) Sevelamer Carbonate 1,600 mg 11/09/19 07:30 11/12/19 12:54 Renvela PO 1,600 mg AC FATMATA Administration Sodium Hypochlorite 1 applic 11/09/19 10:00 11/12/19 09:11 Radha's Full Strength TP 1 applicatio Q12H FATMATA Administration
[2019-11-12 14:41] LABS: Band Neutrophils # (Manual) 0.7 K/mm3; Basophils % (Manual) 0 % (0.0-1.8); Eosinophils % (Manual) 0 % (0.0-4.3); Total Cells Counted 100
[2019-11-12 14:42] LABS: Hypochromasia 2+; Ovalocytes Few; Platelet Estimate Consistent w Auto; Target Cells 2+
[2019-11-12] MEDS: CEFEPIME/NS 1 GM/100 ML 1 GM/100 ML BAG IV SCH (22:20)
[2019-11-12] MEDS: INSULIN GLARGINE 100 UNITS/ML SUB-Q SCH (22:23)
[2019-11-13] MEDS: HYDROcodone/HOMATROPINE 5-1.5MG /5 ML ORAL LIQD UNIT DOSE PO PRN (06:18)
[2019-11-13] MEDS: HYDROmorphone 1 MG/1 ML INJ IV PRN ×4 (07:19→23:59)
--- NOTE | 2019-11-13 08:20 | Progress Note ---
Assessment and Plan Assessment and plan: 54-year-old female hospital day 6 with end-stage renal disease, diabetes mellitus, right foot abscess complicated by Sepsis. Patient lab and imaging studies reviewed. Patient denies fever, chills, chest pain, palpitations, shortness of breath but acknowledges continued pain in her right lower leg at t he site of wound debridement. Surgical team consulted. Patient has adequate blood flow for amputation. Patient sepsis has not resolved at this time. Patient continues to have leukocytosis and sepsis while on antibiotic therapy. Suspect Osteomyelitis. Disease education conducted. Patient informed of foot abscess and likely need for amputation. Patient acknowledges understanding care plan. Pending Ortho reevaluation. --Abscesses right foot; IV antibiotics, wound care, and cultures Status post surgical debridement --Peripheral neuropathy; continue gabapentin --End-stage renal disease; on hemodialysis Nephrology following HD per schedule --Hypertension; Moderate control'resume multiple home antihypertensives When necessary medications --Type 2 diabetes mellitus; Accu-Chek sliding scale coverage ADA diet --DVT prophylaxis; heparin during this--Full CODE STATUS, Monitor closely and adjust management as needed Plan of care reviewed with the patient and has not's Disposition; follow surgery recommendations Possible discharge when medically stable History Interval history: Patient seen and examined medical records reviewed Patient feels slightly better no new complaints Vital signs noted Hospitalist Physical - Constitutional Vitals: Temp Pulse Resp BP Pulse Ox 99.0 F 81 20 128/75 96 11/13/19 05:15 11/13/19 05:15 11/13/19 05:15 11/13/19 05:15 11/13/19 05:15 General appearance: Present: mild distress, well-nourished - EENT Eyes: Present: PERRL, EOM intact - Neck Neck: Present: supple, normal ROM - Respiratory Respiratory effort: normal Respiratory: bilateral: diminished, negative: rales, rhonchi, wheezing - Cardiovascular Rhythm: regular Heart Sounds: Present: S1 & S2 - Extremities Extremities: no ischemia, No edema, abnormal (her right foot/leg abscess status post surgical debridement/dressing in place) - Abdominal General gastrointestinal: soft, non-tender, non-distended, normal bowel sounds - Integumentary Integumentary: Present: clear, warm - Psychiatric Psychiatric: appropriate mood/affect, cooperative - Neurologic Neurologic: moves all extremities Results - Labs CBC & Chem 7: 11/13/19 08:46 11/13/19 08:46 Labs: Laboratory Last Values WBC 17.9 K/mm3 (4.5-11.0) H 11/12/19 10:33 RBC 3.70 M/mm3 (3.65-5.03) 11/12/19 10:33 Hgb 8.0 gm/dl (10.1-14.3) L 11/12/19 10:33 Hct 26.0 % (30.3-42.9) L 11/12/19 10:33 MCV 70 fl (79-97) L 11/12/19 10:33 MCH 22 pg (28-32) L 11/12/19 10:33 MCHC 31 % (30-34) 11/12/19 10:33 RDW 18.2 % (13.2-15.2) H 11/12/19 10:33 Plt Count 389 K/mm3 (140-440) 11/12/19 10:33 Lymph % (Auto) 8.6 % (13.4-35.0) L 11/11/19 10:13 Hemphill % (Auto) 7.6 % (0.0-7.3) H 11/11/19 10:13 Eos % (Auto) 1.3 % (0.0-4.3) 11/11/19 10:13 Baso % (Auto) 0.9 % (0.0-1.8) 11/11/19 10:13 Lymph # 1.5 K/mm3 (1.2-5.4) 11/11/19 10:13 Hemphill # 1.4 K/mm3 (0.0-0.8) H 11/11/19 10:13 Eos # 0.2 K/mm3 (0.0-0.4) 11/11/19 10:13 Baso # 0.2 K/mm3 (0.0-0.1) H 11/11/19 10:13 Add Manual Diff Complete 11/12/19 10:33 Total Counted 100 11/12/19 10:33 Seg Neutrophils % 81.6 % (40.0-70.0) H 11/11/19 10:13 Seg Neuts % (Manual) 78.0 % (40.0-70.0) H 11/12/19 10:33 Band Neutrophils % 4.0 % 11/12/19 10:33 Lymphocytes % (Manual) 11.0 % (13.4-35.0) L 11/12/19 10:33 Reactive Lymphs % (Man) 1.0 % 11/12/19 10:33 Monocytes % (Manual) 6.0 % (0.0-7.3) 11/12/19 10:33 Eosinophils % (Manual) 0 % (0.0-4.3) 11/12/19 10:33 Basophils % (Manual) 0 % (0.0-1.8) 11/12/19 10:33 Metamyelocytes % 0 % 11/12/19 10: Myelocytes % 0 % 11/12/19 10:33 Promyelocytes % 0 % 11/12/19 10: Blast Cells % 0 % 11/12/19 10:33 Nucleated RBC % Not Reportable 11/12/19 10:33 Seg Neutrophils # 14.6 K/mm3 (1.8-7.7) H 11/11/19 10:13 Seg Neutrophils # Man 14.0 K/mm3 (1.8-7.7) H 11/12/19 10:33 Band Neutrophils # 0.7 K/mm3 11/12/19 10:33 Lymphocytes # (Manual) 2.0 K/mm3 (1.2-5.4) 11/12/19 10:33 Abs React Lymphs (Man) 0.2 K/mm3 11/12/19 10:33 Monocytes # (Manual) 1.1 K/mm3 (0.0-0.8) H 11/12/19 10:33 Eosinophils # (Manual) 0.0 K/mm3 (0.0-0.4) 11/12/19 10:33 Basophils # (Manual) 0.0 K/mm3 (0.0-0.1) 11/12/19 10:33 Metamyelocytes # 0.0 K/mm3 11/12/19 10:33 Myelocytes # 0.0 K/mm3 11/12/19 10:33 Promyelocytes # 0.0 K/mm3 11/12/19 10:33 Blast Cells # 0.0 K/mm3 11/12/19 10:33 WBC Morphology Not Reportable 11/12/19 10:33 Hypersegmented Neuts Not Reportable 11/12/19 10:33 Hyposegmented Neuts Not Reportable 11/12/19 10:33 Hypogranular Neuts Not Reportable 11/12/19 10:33 Smudge Cells Not Reportable 11/12/19 10:33 Toxic Granulation Not Reportable 11/12/19 10:33 Toxic Vacuolation Not Reportable 11/12/19 10:33 Dohle Bodies Not Reportable 11/12/19 10:33 Pelger-Huet Anomaly Not Reportable 11/12/19 10:33 Mary Lou Rods Not Reportable 11/12/19 10:33 Platelet Estimate Consistent w auto 11/12/19 10:33 Clumped Platelets Not Reportable 11/12/19 10:33 Plt Clumps, EDTA Not Reportable 11/12/19 10:33 Large Platelets Not Reportable 11/12/19 10:33 Giant Platelets Not Reportable 11/12/19 10:33 Platelet Satelliting Not Reportable 11/12/19 10:33 Plt Morphology Comment Not Reportable 11/12/19 10:33 RBC Morphology Not Reportable 11/12/19 10:33 Dimorphic RBCs Not Reportable 11/12/19 10:33 Polychromasia Not Reportable 11/12/19 10:33 Hypochromasia 2+ 11/12/19 10:33 Poikilocytosis Not Reportable 11/12/19 10:33 Anisocytosis Not Reportable 11/12/19 10:33 Microcytosis Not Reportable 11/12/19 10:33 Macrocytosis Not Reportable 11/12/19 10:33 Spherocytes Not Reportable 11/12/19 10:33 Pappenheimer Bodies Not Reportable 11/12/19 10:33 Sickle Cells Not Reportable 11/12/19 10:33 Target Cells 2+ 11/12/19 10:33 Tear Drop Cells Not Reportable 11/12/19 10:33 Ovalocytes Few 11/12/19 10:33 Helmet Cells Not Reportable 11/12/19 10:33 Nelson-[place]se[place] Bodies Not Reportable 11/12/19 10:33 Stafford Rings Not Reportable 11/12/19 10:33 Natividad Cells Not Reportable 11/12/19 10:33 Bite Cells Not Reportable 11/12/19 10:33 Crenated Cell Not Reportable 11/12/19 10:33 Elliptocytes Not Reportable 11/12/19 10:33 Acanthocytes (Spur) Not Reportable 11/12/19 10:33 Rouleaux Not Reportable 11/12/19 10:33 Hemoglobin C Crystals Not Reportable 11/12/19 10:33 Schistocytes Not Reportable 11/12/19 10:33 Malaria parasites Not Reportable 11/12/19 10:33 Sigifredo Bodies Not Reportable 11/12/19 10:33 Hem Pathologist Commnt No 11/12/19 10:33 Sodium 133 mmol/L (137-145) L 11/12/19 10:33 Potassium 4.6 mmol/L (3.6-5.0) 11/12/19 10:33 Chloride 89.4 mmol/L (98-107) L 11/12/19 10:33 Carbon Dioxide 23 mmol/L (22-30) 11/12/19 10:33 Anion Gap 25 mmol/L 11/12/19 10:33 BUN 35 mg/dL (7-17) H 11/12/19 10:33 Creatinine 4.5 mg/dL (0.7-1.2) H 11/12/19 10:33 Estimated GFR 12 ml/min 11/12/19 10:33 BUN/Creatinine Ratio 8 % 11/12/19 10:33 Glucose 101 mg/dL (65-100) H 11/12/19 10:33 POC Glucose 199 (70-105) H 11/12/19 19:03 Calcium 8.9 mg/dL (8.4-10.2) 11/12/19 10:33 Magnesium 2.20 mg/dL (1.7-2.3) 11/08/19 06:09 Total Bilirubin 0.90 mg/dL (0.1-1.2) 11/12/19 10:33 Direct Bilirubin 0.5 mg/dL (0-0.2) H 11/08/19 06:09 Indirect Bilirubin 0.2 mg/dL 11/08/19 06:09 AST 25 units/L (5-40) 11/12/19 10:33 ALT 7 units/L (7-56) 11/12/19 10:33 Alkaline Phosphatase 882 units/L (35-129) H 11/12/19 10:33 Total Protein 8.1 g/dL (6.3-8.2) 11/12/19 10:33 Albumin 2.7 g/dL (3.9-5) L 11/12/19 10:33 Albumin/Globulin Ratio 0.5 % 11/12/19 10:33 Random Vancomycin 11.9 ug/mL (0-40.0) 11/09/19 07:08 Hepatitis A IgM Ab Non-reactive (NonReactive) 11/07/19 20:19 Hep Bs Antigen Non-reactive (Negative) 11/07/19 20:19 Hep B Core IgM Ab Non-reactive (NonReactive) 11/07/19 20:19 Hepatitis C Antibody Non-reactive (NonReactive) 11/07/19 20:19 Influenza A (Rapid) Negative (Negative) 11/11/19 Unknown Influenza B (Rapid) Negative (Negative) 11/11/19 Unknown Active Medications - Current Medications Current Medications: Generic Name Dose Route Start Last Admin Trade Name Freq PRN Reason Stop Dose Admin Acetaminophen 650 mg 11/10/19 19:22 11/10/19 20:13 Tylenol PO 650 mg Q6H PRN Administration Fever >101 Epoetin Jacoby 5,000 unit 11/07/19 13:01 11/10/19 11:30 Procrit IV 5,000 unit FRANCOIS PRN Administration Dialysis Folic Acid 1 mg 11/08/19 10:00 11/12/19 09:10 Folvite PO 1 mg QDAY FATMATA Administration Gabapentin 300 mg 11/10/19 20:00 11/12/19 20:19 Gabapentin PO 300 mg TID FATMATA Administration Hydrocodone Bit/Homatropine Methylb 10 ml 11/09/19 13:18 11/13/19 06:18 Hydromet PO 10 ml Q6H PRN Administration Cough Hydromorphone HCl 1 mg 11/09/19 09:04 11/13/19 07:19 Dilaudid IV 1 mg Q4H PRN Administration Pain , Severe (7-10) Hydroxyzine HCl 10 mg 11/07/19 23:51 11/08/19 00:15 Atarax PO 10 mg Q6H PRN Administration Itching Sodium Chloride 100 mls @ 999 mls/hr 11/07/19 17:05 Nacl 0.9% IV FRANCOIS PRN Hypotension Cefepime HCl 1 gm in 100 mls @ 200 mls/hr 11/07/19 22:00 11/12/19 22:20 Cefepime/Ns 1 Gm/100 Ml IV 200 mls/hr Q24H FATMATA Administration Vancomycin HCl 1 gm in 250 mls @ 167.007 mls/hr 11/10/19 18:00 11/10/19 19:11 Vancomycin/Ns 1 Gm/250 Ml IV 167.007 mls/hr [id number] FATMATA Administration Insulin Glargine 15 units 11/07/19 22:00 11/12/19 22:23 Lantus SUB-Q 15 units QHS FATMATA Administration Insulin Human Lispro 0 unit 11/07/19 16:30 11/12/19 22:17 Humalog SUB-Q 2 unit ACHS FATMATA Administration Protocol Metoclopramide HCl 5 mg 11/07/19 16:30 11/12/19 22:19 Reglan PO 5 mg ACHS FATMATA Administration Oxycodone/Acetaminophen 1 tab 11/08/19 22:31 Percocet 5/325 PO Q6H PRN Pain, Moderate (4-6) Sevelamer Carbonate 1,600 mg 11/09/19 07:30 11/12/19 17:06 Renvela PO 1,600 mg AC FATMATA Administration Sodium Hypochlorite 1 applic 11/09/19 10:00 11/12/19 22:40 Dakin's Full Strength TP 1 applicatio Q12H FATMATA Administration
--- NOTE | 2019-11-13 08:41 | Progress Note ---
Assessment and Plan - Patient Problems (1) Foot abscess, right Current Visit: Yes Status: Acute Plan to address problem: Continue current antibiotic regimen, and please ensure that antibiotics are dosed appropriately for her diminished renal function. S/P debridement. Further recommendations per surgery, (2) ESRD (end stage renal disease) Current Visit: No Status: Chronic Plan to address problem: Continue on TTS HD schedule. (3) Hypertensive chronic kidney disease with stage 5 chronic kidney disease or end stage renal disease Current Visit: No Status: Chronic Plan to address problem: Monitor blood pressures with current regimen. (4) Type 2 diabetes mellitus with diabetic chronic kidney disease Current Visit: No Status: Chronic Qualifiers: Chronic kidney disease stage: on chronic dialysis Plan to address problem: DM management per primary attending. (5) Anemia in chronic illness Current Visit: No Status: Chronic Plan to address problem: XI therapy with HD sessions. Subjective Date of service: 11/13/19 Principal diagnosis: ESRD, foot ulcer Interval history: No acute complaints. Per patient, she was informed by surgeon of plan for right BKA. She was told that they will know today or tomorrow of exact time period. Plan for HD today. Objective - Vital Signs Vital signs: Vital Signs - 12hr 11/12/19 11/13/19 23:30 05:15 Temperature 98.5 F 99.0 F Pulse Rate 73 81 Respiratory 18 20 Rate Blood Pressure 101/55 128/75 O2 Sat by Pulse 94 96 Oximetry - General Appearance General appearance: well-nourished, appears stated age EENT: ATNC, PERRL Neck: no JVD, no thyromegaly Respiratory: Present: Clear to Ascultation, Normal Exam Cardiology: regular, S1S2 Gastrointestinal: normal, normoactive bowel sounds Integumentary: warm and dry Neurologic: no focal deficit, alert and oriented x3 Psychiatric: cooperative - Lab 11/12/19 10:33 11/12/19 10:33 Most recent lab results Calcium 8.9 mg/dL (8.4-10.2) 11/12/19 10:33 Magnesium 2.20 mg/dL (1.7-2.3) 11/08/19 06:09 - Allied health notes Allied health notes reviewed: nursing Medications & Allergies - Medications Allergies/Adverse Reactions: Allergies amlodipine Allergy (Verified 09/26/19 16:04) Itching losartan Allergy (Verified 09/26/19 16:04) Itching sulfamethoxazole [From Bactrim] Allergy (Verified 09/26/19 16:04) Rash trimethoprim [From Bactrim] Allergy (Verified 09/26/19 16:04) Rash morphine Adverse Reaction (Verified 09/26/19 16:04) Vomiting Home Medications: Home Medications Medication Instructions Recorded Confirmed Last Taken Type Epoetin Jacoby 10,000 Unit [Procrit] 5,000 unit IV FRANCOIS PRN vial 07/13/19 11/07/19 Unknown Rx Gabapentin 100 mg PO BID #60 capsule 07/13/19 11/07/19 Unknown Rx Insulin Glargine [Lantus VIAL] 15 units SUB-Q QHS 30 Days units 07/13/19 11/07/19 Unknown Rx Lispro Insulin [HumaLOG] See Protocol SUB-Q ACHS 30 Days 07/13/19 11/07/19 Unknown Rx units Metoprolol [Lopressor TAB] 100 mg PO BID #60 tablet 07/13/19 11/07/19 Unknown Rx NIFEdipine XL [Procardia Xl] 60 mg PO QDAY #30 tablet 07/13/19 11/07/19 Unknown Rx Torsemide [Demadex] 60 mg PO DAILY 30 Days tablet 07/13/19 11/07/19 Unknown Rx Zolpidem [Ambien] 5 mg PO QHS PRN #15 tablet 07/13/19 11/07/19 Unknown Rx cloNIDine [Catapres] 0.1 mg PO Q12H PRN #60 tablet 07/13/19 11/07/19 Unknown Rx hydrALAZINE [Apresoline TAB] 100 mg PO Q8HR #90 tab 07/13/19 11/07/19 Unknown Rx Sodium Hypochlorite [Dakin's Half 1 applic TP BID #1 bottle 09/21/19 11/07/19 Unknown Rx Strength] Active Medications: Generic Name Dose Route Start Last Admin Trade Name Freq PRN Reason Stop Dose Admin Acetaminophen 650 mg 11/10/19 19:22 11/10/19 20:13 Tylenol PO 650 mg Q6H PRN Administration Fever >101 Epoetin Jacoby 5,000 unit 11/07/19 13:01 11/10/19 11:30 Procrit IV 5,000 unit FRANCOIS PRN Administration Dialysis Folic Acid 1 mg 11/08/19 10:00 11/12/19 09:10 Folvite PO 1 mg QDAY FATMATA Administration Gabapentin 300 mg 11/10/19 20:00 11/12/19 20:19 Gabapentin PO 300 mg TID FATMATA Administration Hydrocodone Bit/Homatropine Methylb 10 ml 11/09/19 13:18 11/13/19 06:18 Hydromet PO 10 ml Q6H PRN Administration Cough Hydromorphone HCl 1 mg 11/09/19 09:04 11/13/19 07:19 Dilaudid IV 1 mg Q4H PRN Administration Pain , Severe (7-10) Hydroxyzine HCl 10 mg 11/07/19 23:51 11/08/19 00:15 Atarax PO 10 mg Q6H PRN Administration Itching Sodium Chloride 100 mls @ 999 mls/hr 11/07/19 17:05 Nacl 0.9% IV FRANCOIS PRN Hypotension Cefepime HCl 1 gm in 100 mls @ 200 mls/hr 11/07/19 22:00 11/12/19 22:20 Cefepime/Ns 1 Gm/100 Ml IV 200 mls/hr Q24H FATMATA Administration Vancomycin HCl 1 gm in 250 mls @ 167.007 mls/hr 11/10/19 18:00 11/10/19 19:11 Vancomycin/Ns 1 Gm/250 Ml IV 167.007 mls/hr [id number] FATMATA Administration Insulin Glargine 15 units 11/07/19 22:00 11/12/19 22:23 Lantus SUB-Q 15 units QHS FATMATA Administration Insulin Human Lispro 0 unit 11/07/19 16:30 11/12/19 22:17 Humalog SUB-Q 2 unit ACHS FATMATA Administration Protocol Metoclopramide HCl 5 mg 11/07/19 16:30 11/12/19 22:19 Reglan PO 5 mg ACHS FATMATA Administration Oxycodone/Acetaminophen 1 tab 11/08/19 22:31 Percocet 5/325 PO Q6H PRN Pain, Moderate (4-6) Sevelamer Carbonate 1,600 mg 11/09/19 07:30 11/12/19 17:06 Renvela PO 1,600 mg AC FATMATA Administration Sodium Hypochlorite 1 applic 11/09/19 10:00 11/12/19 22:40 Dakin's Full Strength TP 1 applicatio Q12H FATMATA Administration
[2019-11-13] MEDS: INSULIN LISPRO 100 UNIT/ML SUB-Q SCH ×4 (08:57→21:49)
[2019-11-13 09:29] LABS: Hematocrit 26.7 % (30.3-42.9); Hemoglobin 8.4 gm/dl (10.1-14.3); Mean Corpuscular HGB Conc 31 % (30-34); Mean Corpuscular Volume 70 fl (79-97); Platelet Count 382 K/mm3 (140-440)
[2019-11-13] MEDS: FOLIC ACID 1 MG TAB PO SCH (09:37)
[2019-11-13] MEDS: METOCLOPRAMIDE 10 MG TAB PO SCH ×4 (09:37→21:47)
[2019-11-13] MEDS: SEVELAMER CARBONATE 800 MG TAB PO SCH ×3 (09:38→18:10)
[2019-11-13] MEDS: GABAPENTIN 300 MG CAP PO SCH ×3 (09:39→21:47)
[2019-11-13 10:22] LABS: Albumin 2.6 g/dL (3.9-5); BUN/Creatinine Ratio 8; Blood Urea Nitrogen 44 mg/dL (7-17); Calcium 8.8 mg/dL (8.4-10.2); Hemolysis Index 0
[2019-11-13 10:28] LABS: Alanine Aminotransferase < 5 units/L (7-56)
[2019-11-13 11:03] LABS: Basophils % (Manual) 0 % (0.0-1.8); Total Cells Counted 100
[2019-11-13 11:04] LABS: Anisocytosis 1+; Hypochromasia 1+; Ovalocytes Few; Platelet Estimate Consistent w Auto; Poikilocytosis 1+; Target Cells 2+
[2019-11-13] MEDS: SODIUM HYPOCHLORITE, DAKIN'S FULL STRENGTH (0.5%) 473 ML TOPICAL SOLN TP SCH ×2 (13:02→21:49)
[2019-11-13] MEDS: VANCOMYCIN/NS 1 GM/250 ML 1 GM/250 ML BAG IV SCH (18:11)
[2019-11-13] MEDS ORDERED: SODIUM CHLORIDE*PRIMING MACHINE ONLY FOR DIALYSIS MC ONE (20:28)
--- NOTE | 2019-11-13 21:16 | Progress Note ---
Subjective Date of service: 11/13/19 Principal diagnosis: ESRD, foot ulcer Interval history: spoke with patient and family members about impending surgery, based on the xrays taken recently show tibial implant positioning well above proposed amputation level, will go ahead and schedule for right BKA 11/14/19.... Objective Vital signs: Vital Signs - 12hr 11/13/19 11/13/19 11/13/19 12:01 13:15 13:30 Temperature 98.8 F 98.8 F Pulse Rate 75 82 75 Respiratory 20 20 Rate Blood Pressure 121/75 129/71 121/60 O2 Sat by Pulse 97 Oximetry 11/13/19 11/13/19 11/13/19 13:45 14:00 14:15 Temperature Pulse Rate 76 74 75 Respiratory Rate Blood Pressure 118/51 106/47 98/52 O2 Sat by Pulse Oximetry 11/13/19 11/13/19 11/13/19 14:30 14:45 15:00 Temperature Pulse Rate 76 80 80 Respiratory Rate Blood Pressure 124/62 128/67 125/70 O2 Sat by Pulse Oximetry 11/13/19 11/13/19 11/13/19 15:15 15:30 15:45 Temperature Pulse Rate 77 77 75 Respiratory Rate Blood Pressure 116/59 124/63 113/60 O2 Sat by Pulse Oximetry 11/13/19 11/13/19 16:00 16:45 Temperature 98.8 F Pulse Rate 76 77 Respiratory 20 Rate Blood Pressure 114/54 163/77 O2 Sat by Pulse Oximetry - Labs CBC & BMP: 11/13/19 08:46 11/13/19 08:46 Labs: Abnormal lab results 11/12/19 11/13/19 11/13/19 Range/Units 12:30 08:46 08:46 WBC 15.2 H (4.5-11.0) K/mm3 Hgb 8.4 L (10.1-14.3) gm/dl Hct 26.7 L (30.3-42.9) % MCV 70 L (79-97) fl MCH 22 L (28-32) pg RDW 18.0 H (13.2-15.2) % Seg Neuts % (Manual) 85.0 H (40.0-70.0) % Lymphocytes % (Manual) 10.0 L (13.4-35.0) % Seg Neutrophils # Man 12.9 H (1.8-7.7) K/mm3 Sodium 135 L (137-145) mmol/L Chloride 91.1 L (98-107) mmol/L BUN 44 H (7-17) mg/dL Creatinine 5.6 H (0.7-1.2) mg/dL Glucose 122 H (65-100) mg/dL POC Glucose 123 H (70-105) ALT < 5 L (7-56) units/L Alkaline Phosphatase 779 H (35-129) units/L Albumin 2.6 L (3.9-5) g/dL 11/13/19 11/13/19 Range/Units 08:59 12:12 WBC (4.5-11.0) K/mm3 Hgb (10.1-14.3) gm/dl Hct (30.3-42.9) % MCV (79-97) fl MCH (28-32) pg RDW (13.2-15.2) % Seg Neuts % (Manual) (40.0-70.0) % Lymphocytes % (Manual) (13.4-35.0) % Seg Neutrophils # Man (1.8-7.7) K/mm3 Sodium (137-145) mmol/L Chloride (98-107) mmol/L BUN (7-17) mg/dL Creatinine (0.7-1.2) mg/dL Glucose (65-100) mg/dL POC Glucose 120 H 135 H (70-105) ALT (7-56) units/L Alkaline Phosphatase (35-129) units/L Albumin (3.9-5) g/dL
[2019-11-13] MEDS: INSULIN GLARGINE 100 UNITS/ML SUB-Q SCH (21:48)
[2019-11-13] MEDS: CEFEPIME/NS 1 GM/100 ML 1 GM/100 ML BAG IV SCH (21:53)
[2019-11-14 06:36] LABS: Hematocrit 25.4 % (30.3-42.9); Mean Corpuscular HGB Conc 32 % (30-34); Mean Corpuscular Volume 72 fl (79-97); Platelet Count 348 K/mm3 (140-440); Red Blood Count 3.55 M/mm3 (3.65-5.03); Red Cell Distribution Width 18.3 % (13.2-15.2)
[2019-11-14 06:46] LABS: Calcium 8.7 mg/dL (8.4-10.2)
[2019-11-14] MEDS: INSULIN LISPRO 100 UNIT/ML SUB-Q SCH ×4 (07:57→22:26)
--- NOTE | 2019-11-14 08:02 | Progress Note ---
Assessment and Plan Assessment and plan: --Scheduled for right BKA today Orthopedic evaluation and recommendations noted and appreciated --Abscesses right foot; IV antibiotics, wound care, and cultures Status post surgical debridement --Sepsis secondary to right foot abscess; Status post surgical debridement , possible right BKA today continue current antibiotics, Follow cultures --Peripheral neuropathy; continue gabapentin --End-stage renal disease; on hemodialysis Nephrology following HD per schedule --Hypertension; Moderate control'resume multiple home antihypertensives When necessary medications --Type 2 diabetes mellitus; Accu-Chek sliding scale coverage ADA diet --DVT prophylaxis; heparin during this--Full CODE STATUS, Monitor closely and adjust management as needed Plan of care reviewed with the patient and has not's Disposition; follow surgery recommendations Possible discharge when medically stable 54-year-old female hospital day 6 with end-stage renal disease, diabetes mellitus, right foot abscess complicated by Sepsis. Patient lab and imaging studies reviewed. Patient denies fever, chills, chest pain, palpitations, shortness of breath but acknowledges continued pain in her right lower leg at the site of wound debridement. Surgical team consulted. Patient has adequate blood flow for amputation. Patient sepsis has not resolved at this time. Patient continues to have leukocytosis and sepsis while on antibiotic therapy. Suspect Osteomyelitis. Disease education conducted. Patient informed of foot abscess and likely need for amputation. Patient acknowledges understanding care plan. Pending Ortho reevaluation. History Interval history: Patient seen and examined medical records reviewed Patient was scheduled for BKA today Patient has no new complaints Vital signs reviewed Hospitalist Physical - Constitutional Vitals: Temp Pulse Resp BP Pulse Ox 98.4 F 77 18 131/67 100 11/14/19 04:31 11/14/19 04:31 11/14/19 04:31 11/14/19 04:31 11/14/19 04:31 General appearance: Present: no acute distress, well-nourished - EENT Eyes: Present: PERRL, EOM intact - Neck Neck: Present: supple, normal ROM - Respiratory Respiratory effort: normal Respiratory: bilateral: diminished, negative: rales, rhonchi, wheezing - Cardiovascular Rhythm: regular Heart Sounds: Present: S1 & S2 - Extremities Extremities: no ischemia, No edema, abnormal (left BKA) Extremity abnormal: other (right foot in dressing) - Abdominal General gastrointestinal: soft, non-tender, non-distended, normal bowel sounds - Integumentary Integumentary: Present: clear, warm - Psychiatric Psychiatric: cooperative - Neurologic Neurologic: moves all extremities Results - Labs CBC & Chem 7: 11/14/19 06:05 11/15/19 04:52 Labs: Laboratory Last Values WBC 13.5 K/mm3 (4.5-11.0) H 11/14/19 06:05 RBC 3.55 M/mm3 (3.65-5.03) L 11/14/19 06:05 Hgb 8.0 gm/dl (10.1-14.3) L 11/14/19 06:05 Hct 25.4 % (30.3-42.9) L 11/14/19 06:05 MCV 72 fl (79-97) L 11/14/19 06:05 MCH 23 pg (28-32) L 11/14/19 06:05 MCHC 32 % (30-34) 11/14/19 06:05 RDW 18.3 % (13.2-15.2) H 11/14/19 06:05 Plt Count 348 K/mm3 (140-440) 11/14/19 06:05 Lymph % (Auto) 8.6 % (13.4-35.0) L 11/11/19 10:13 [place] % (Auto) 7.6 % (0.0-7.3) H 11/11/19 10:13 Eos % (Auto) 1.3 % (0.0-4.3) 11/11/19 10:13 Baso % (Auto) 0.9 % (0.0-1.8) 11/11/19 10:13 Lymph # 1.5 K/mm3 (1.2-5.4) 11/11/19 10:13 [place] # 1.4 K/mm3 (0.0-0.8) H 11/11/19 10:13 Eos # 0.2 K/mm3 (0.0-0.4) 11/11/19 10:13 Baso # 0.2 K/mm3 (0.0-0.1) H 11/11/19 10:13 Add Manual Diff Complete 11/13/19 08:46 Total Counted 100 11/13/19 08:46 Seg Neutrophils % 81.6 % (40.0-70.0) H 11/11/19 10:13 Seg Neuts % (Manual) 85.0 % (40.0-70.0) H 11/13/19 08:46 Band Neutrophils % 0 % 11/13/19 08:46 Lymphocytes % (Manual) 10.0 % (13.4-35.0) L 11/13/19 08:46 Reactive Lymphs % (Man) 0 % 11/13/19 08:46 Monocytes % (Manual) 2.0 % (0.0-7.3) 11/13/19 08:46 Eosinophils % (Manual) 2.0 % (0.0-4.3) 11/13/19 08:46 Basophils % (Manual) 0 % (0.0-1.8) 11/13/19 08:46 Metamyelocytes % 1.0 % 11/13/19 08:46 Myelocytes % 0 % 11/13/19 08:46 Promyelocytes % 0 % 11/13/19 08:46 Blast Cells % 0 % 11/13/19 08:46 Nucleated RBC % Not Reportable 11/13/19 08:46 Seg Neutrophils # 14.6 K/mm3 (1.8-7.7) H 11/11/19 10:13 Seg Neutrophils # Man 12.9 K/mm3 (1.8-7.7) H 11/13/19 08:46 Band Neutrophils # 0.0 K/mm3 11/13/19 08:46 Lymphocytes # (Manual) 1.5 K/mm3 (1.2-5.4) 11/13/19 08:46 Abs React Lymphs (Man) 0.0 K/mm3 11/13/19 08:46 Monocytes # (Manual) 0.3 K/mm3 (0.0-0.8) 11/13/19 08:46 Eosinophils # (Manual) 0.3 K/mm3 (0.0-0.4) 11/13/19 08:46 Basophils # (Manual) 0.0 K/mm3 (0.0-0.1) 11/13/19 08:46 Metamyelocytes # 0.2 K/mm3 11/13/19 08:46 Myelocytes # 0.0 K/mm3 11/13/19 08:46 Promyelocytes # 0.0 K/mm3 11/13/19 08:46 Blast Cells # 0.0 K/mm3 11/13/19 08:46 WBC Morphology Not Reportable 11/13/19 08:46 Hypersegmented Neuts Not Reportable 11/13/19 08:46 Hyposegmented Neuts Not Reportable 11/13/19 08:46 Hypogranular Neuts Not Reportable 11/13/19 08:46 Smudge Cells Not Reportable 11/13/19 08:46 Toxic Granulation Not Reportable 11/13/19 08:46 Toxic Vacuolation Not Reportable 11/13/19 08:46 Dohle Bodies Not Reportable 11/13/19 08:46 Pelger-Huet Anomaly Not Reportable 11/13/19 08:46 Mary Lou Rods Not Reportable 11/13/19 08:46 Platelet Estimate Consistent w auto 11/13/19 08:46 Clumped Platelets Not Reportable 11/13/19 08:46 Plt Clumps, EDTA Not Reportable 11/13/19 08:46 Large Platelets Not Reportable 11/13/19 08:46 Giant Platelets Not Reportable 11/13/19 08:46 Platelet Satelliting Not Reportable 11/13/19 08:46 Plt Morphology Comment Not Reportable 11/13/19 08:46 RBC Morphology Not Reportable 11/13/19 08:46 Dimorphic RBCs Not Reportable 11/13/19 08:46 Polychromasia Not Reportable 11/13/19 08:46 Hypochromasia 1+ 11/13/19 08:46 Poikilocytosis 1+ 11/13/19 08:46 Anisocytosis 1+ 11/13/19 08:46 Microcytosis Not Reportable 11/13/19 08:46 Macrocytosis Not Reportable 11/13/19 08:46 Spherocytes Not Reportable 11/13/19 08:46 Pappenheimer Bodies Not Reportable 11/13/19 08:46 Sickle Cells Not Reportable 11/13/19 08:46 Target Cells 2+ 11/13/19 08:46 Tear Drop Cells Not Reportable 11/13/19 08:46 Ovalocytes Few 11/13/19 08:46 Helmet Cells Not Reportable 11/13/19 08:46 Nelson-Radnor Bodies Not Reportable 11/13/19 08:46 [place] Rings Not Reportable 11/13/19 08:46 [place] Cells Not Reportable 11/13/19 08:46 Bite Cells Not Reportable 11/13/19 08:46 Crenated Cell Not Reportable 11/13/19 08:46 Elliptocytes Not Reportable 11/13/19 08:46 Acanthocytes (Spur) Not Reportable 11/13/19 08:46 Rouleaux Not Reportable 11/13/19 08:46 Hemoglobin C Crystals Not Reportable 11/13/19 08:46 Schistocytes Not Reportable 11/13/19 08:46 Malaria parasites Not Reportable 11/13/19 08:46 Sigifredo Bodies Not Reportable 11/13/19 08:46 Hem Pathologist Commnt No 11/13/19 08:46 Sodium 136 mmol/L (137-145) L 11/14/19 06:05 Potassium 4.0 mmol/L (3.6-5.0) 11/14/19 06:05 Chloride 94.0 mmol/L (98-107) L 11/14/19 06:05 Carbon Dioxide 29 mmol/L (22-30) 11/14/19 06:05 Anion Gap 17 mmol/L 11/14/19 06:05 BUN 25 mg/dL (7-17) H 11/14/19 06:05 Creatinine 3.8 mg/dL (0.7-1.2) H 11/14/19 06:05 Estimated GFR 15 ml/min 11/14/19 06:05 BUN/Creatinine Ratio 7 % 11/14/19 06:05 Glucose 69 mg/dL (65-100) 11/14/19 06:05 POC Glucose 92 (70-105) 11/14/19 03:24 Calcium 8.7 mg/dL (8.4-10.2) 11/14/19 06:05 Magnesium 2.20 mg/dL (1.7-2.3) 11/08/19 06:09 Total Bilirubin 0.70 mg/dL (0.1-1.2) 11/13/19 08:46 Direct Bilirubin 0.5 mg/dL (0-0.2) H 11/08/19 06:09 Indirect Bilirubin 0.2 mg/dL 11/08/19 06:09 AST 14 units/L (5-40) 11/13/19 08:46 ALT < 5 units/L (7-56) L 11/13/19 08:46 Alkaline Phosphatase 779 units/L (35-129) H 11/13/19 08:46 Total Protein 7.7 g/dL (6.3-8.2) 11/13/19 08:46 Albumin 2.6 g/dL (3.9-5) L 11/13/19 08:46 Albumin/Globulin Ratio 0.5 % 11/13/19 08:46 Random Vancomycin 14.3 ug/mL (0-40.0) 11/13/19 08:46 Hepatitis A IgM Ab Non-reactive (NonReactive) 11/07/19 20:19 Hep Bs Antigen Non-reactive (Negative) 11/07/19 20:19 Hep B Core IgM Ab Non-reactive (NonReactive) 11/07/19 20:19 Hepatitis C Antibody Non-reactive (NonReactive) 11/07/19 20:19 Influenza A (Rapid) Negative (Negative) 11/11/19 Unknown Influenza B (Rapid) Negative (Negative) 11/11/19 Unknown Active Medications - Current Medications Current Medications: Generic Name Dose Route Start Last Admin Trade Name Freq PRN Reason Stop Dose Admin Acetaminophen 650 mg 11/10/19 19:22 11/10/19 20:13 Tylenol PO 650 mg Q6H PRN Administration Fever >101 Epoetin Jacoby 10,000 unit 11/13/19 08:42 Procrit IV FRANCOIS PRN Dialysis Folic Acid 1 mg 11/08/19 10:00 11/13/19 09:37 Folvite PO 1 mg QDAY FATMATA Administration Gabapentin 300 mg 11/10/19 20:00 11/13/19 21:47 Gabapentin PO 300 mg TID FATMATA Administration Hydrocodone Bit/Homatropine Methylb 10 ml 11/09/19 13:18 11/13/19 06:18 Hydromet PO 10 ml Q6H PRN Administration Cough Hydromorphone HCl 1 mg 11/09/19 09:04 11/13/19 23:59 Dilaudid IV 1 mg Q4H PRN Administration Pain , Severe (7-10) Hydroxyzine HCl 10 mg 11/07/19 23:51 11/08/19 00:15 Atarax PO 10 mg Q6H PRN Administration Itching Sodium Chloride 100 mls @ 999 mls/hr 11/07/19 17:05 Nacl 0.9% IV FRANCOIS PRN Hypotension Cefepime HCl 1 gm in 100 mls @ 200 mls/hr 11/07/19 22:00 11/13/19 21:53 Cefepime/Ns 1 Gm/100 Ml IV 200 mls/hr Q24H FATMATA Administration Vancomycin HCl 1 gm in 250 mls @ 167.007 mls/hr 11/10/19 18:00 11/13/19 18:11 Vancomycin/Ns 1 Gm/250 Ml IV 167.007 mls/hr [id number] FATMATA Administration Insulin Glargine 15 units 11/07/19 22:00 11/13/19 21:48 Lantus SUB-Q 15 units QHS FATMATA Administration Insulin Human Lispro 0 unit 11/07/19 16:30 11/14/19 07:57 Humalog SUB-Q Not Given ACHS [facility] Protocol Metoclopramide HCl 5 mg 11/07/19 16:30 11/13/19 21:47 Reglan PO Not Given ACHS [facility] Oxycodone/Acetaminophen 1 tab 11/08/19 22:31 Percocet 5/325 PO Q6H PRN Pain, Moderate (4-6) Sevelamer Carbonate 1,600 mg 11/09/19 07:30 11/13/19 18:10 Renvela PO 1,600 mg AC FATMATA Administration Sodium Hypochlorite 1 applic 11/09/19 10:00 11/13/19 21:49 Dakin's Full Strength TP 1 applicatio Q12H FATMATA Administration
[2019-11-14 08:26] LABS: Anisocytosis 1+; Basophils % (Manual) 0 % (0.0-1.8); Hypochromasia 1+; Ovalocytes Few; Platelet Estimate Consistent w Auto; Poikilocytosis 1+; Target Cells 2+; Total Cells Counted 100
[2019-11-14] MEDS ORDERED: DEXTROSE 50% IN WATER (25GM) 50 ML SYRINGE IV ONE ×2 (08:39→11:48)
[2019-11-14] MEDS: HYDROmorphone 1 MG/1 ML INJ IV PRN ×4 (08:58→21:25)
[2019-11-14] MEDS: METOCLOPRAMIDE 10 MG TAB PO SCH ×4 (09:18→22:26)
[2019-11-14] MEDS: GABAPENTIN 300 MG CAP PO SCH ×3 (09:18→21:24)
[2019-11-14] MEDS: SEVELAMER CARBONATE 800 MG TAB PO SCH ×3 (09:18→16:42)
[2019-11-14] MEDS: SODIUM HYPOCHLORITE, DAKIN'S FULL STRENGTH (0.5%) 473 ML TOPICAL SOLN TP SCH ×2 (10:00→23:07)
--- NOTE | 2019-11-14 10:06 | Progress Note ---
Assessment and Plan - Patient Problems (1) Foot abscess, right Current Visit: Yes Status: Acute Plan to address problem: Continue current antibiotic regimen, and please ensure that antibiotics are dosed appropriately for her diminished renal function. S/P debridement. Per surgery note, she is being set up right BKA today. (2) ESRD (end stage renal disease) Current Visit: No Status: Chronic Plan to address problem: Continue on TTS HD schedule. (3) Hypertensive chronic kidney disease with stage 5 chronic kidney disease or end stage renal disease Current Visit: No Status: Chronic Plan to address problem: Monitor blood pressures with current regimen. (4) Type 2 diabetes mellitus with diabetic chronic kidney disease Current Visit: No Status: Chronic Qualifiers: Chronic kidney disease stage: on chronic dialysis Plan to address problem: DM management per primary attending. (5) Anemia in chronic illness Current Visit: No Status: Chronic Plan to address problem: XI therapy with HD sessions. Subjective Date of service: 11/14/19 Principal diagnosis: ESRD, foot ulcer Interval history: Per surgery note, she is pending right BKA today. Objective - Vital Signs Vital signs: Vital Signs - 12hr 11/13/19 11/14/19 11/14/19 23:59 00:29 03:31 Temperature Pulse Rate Respiratory 18 20 Rate Blood Pressure Blood Pressure 135/74 [Right] O2 Sat by Pulse Oximetry 11/14/19 04:31 Temperature 98.4 F Pulse Rate 77 Respiratory 18 Rate Blood Pressure 131/67 Blood Pressure [Right] O2 Sat by Pulse 100 Oximetry - General Appearance General appearance: well-nourished, appears stated age EENT: ATNC, PERRL Neck: no JVD Respiratory: Present: Clear to Ascultation Cardiology: regular, S1S2 Gastrointestinal: normal Integumentary: no rash Neurologic: no focal deficit, alert and oriented x3 Musculoskeletal: deferred Psychiatric: cooperative - Lab 11/14/19 06:05 11/14/19 06:05 Most recent lab results Calcium 8.7 mg/dL (8.4-10.2) 11/14/19 06:05 Magnesium 2.20 mg/dL (1.7-2.3) 11/08/19 06:09 - Allied health notes Allied health notes reviewed: nursing Medications & Allergies - Medications Allergies/Adverse Reactions: Allergies amlodipine Allergy (Verified 09/26/19 16:04) Itching losartan Allergy (Verified 09/26/19 16:04) Itching sulfamethoxazole [From Bactrim] Allergy (Verified 09/26/19 16:04) Rash trimethoprim [From Bactrim] Allergy (Verified 09/26/19 16:04) Rash morphine Adverse Reaction (Verified 09/26/19 16:04) Vomiting Home Medications: Home Medications Medication Instructions Recorded Confirmed Last Taken Type Epoetin Jacoby 10,000 Unit [Procrit] 5,000 unit IV FRANCOIS PRN vial 07/13/19 11/07/19 Unknown Rx Gabapentin 100 mg PO BID #60 capsule 07/13/19 11/07/19 Unknown Rx Insulin Glargine [Lantus VIAL] 15 units SUB-Q QHS 30 Days units 07/13/19 11/07/19 Unknown Rx Lispro Insulin [HumaLOG] See Protocol SUB-Q ACHS 30 Days 07/13/19 11/07/19 Unknown Rx units Metoprolol [Lopressor TAB] 100 mg PO BID #60 tablet 07/13/19 11/07/19 Unknown Rx NIFEdipine XL [Procardia Xl] 60 mg PO QDAY #30 tablet 07/13/19 11/07/19 Unknown Rx Torsemide [Demadex] 60 mg PO DAILY 30 Days tablet 07/13/19 11/07/19 Unknown Rx Zolpidem [Ambien] 5 mg PO QHS PRN #15 tablet 07/13/19 11/07/19 Unknown Rx cloNIDine [Catapres] 0.1 mg PO Q12H PRN #60 tablet 07/13/19 11/07/19 Unknown Rx hydrALAZINE [Apresoline TAB] 100 mg PO Q8HR #90 tab 07/13/19 11/07/19 Unknown Rx Sodium Hypochlorite [Dakin's Half 1 applic TP BID #1 bottle 09/21/19 11/07/19 Unknown Rx Strength] Active Medications: Generic Name Dose Route Start Last Admin Trade Name Freq PRN Reason Stop Dose Admin Acetaminophen 650 mg 11/10/19 19:22 11/10/19 20:13 Tylenol PO 650 mg Q6H PRN Administration Fever >101 Epoetin Jacoby 10,000 unit 11/13/19 08:42 Procrit IV FRANCOIS PRN Dialysis Folic Acid 1 mg 11/08/19 10:00 11/13/19 09:37 Folvite PO 1 mg QDAY FATMATA Administration Gabapentin 300 mg 11/10/19 20:00 11/14/19 09:18 Gabapentin PO Not Given TID FATMATA Hydrocodone Bit/Homatropine Methylb 10 ml 11/09/19 13:18 11/13/19 06:18 Hydromet PO 10 ml Q6H PRN Administration Cough Hydromorphone HCl 1 mg 11/09/19 09:04 11/14/19 08:58 Dilaudid IV 1 mg Q4H PRN Administration Pain , Severe (7-10) Hydroxyzine HCl 10 mg 11/07/19 23:51 11/08/19 00:15 Atarax PO 10 mg Q6H PRN Administration Itching Sodium Chloride 100 mls @ 999 mls/hr 11/07/19 17:05 Nacl 0.9% IV FRANCOIS PRN Hypotension Cefepime HCl 1 gm in 100 mls @ 200 mls/hr 11/07/19 22:00 11/13/19 21:53 Cefepime/Ns 1 Gm/100 Ml IV 200 mls/hr Q24H FATMATA Administration Vancomycin HCl 1 gm in 250 mls @ 167.007 mls/hr 11/10/19 18:00 11/13/19 18:11 Vancomycin/Ns 1 Gm/250 Ml IV 167.007 mls/hr [id number] FATMATA Administration Insulin Glargine 15 units 11/07/19 22:00 11/13/19 21:48 Lantus SUB-Q 15 units QHS FATMATA Administration Insulin Human Lispro 0 unit 11/07/19 16:30 11/14/19 07:57 Humalog SUB-Q Not Given ACHS [facility] Protocol Metoclopramide HCl 5 mg 11/07/19 16:30 11/14/19 09:18 Reglan PO Not Given ACHS [facility] Oxycodone/Acetaminophen 1 tab 11/08/19 22:31 Percocet 5/325 PO Q6H PRN Pain, Moderate (4-6) Sevelamer Carbonate 1,600 mg 11/09/19 07:30 11/14/19 09:18 Renvela PO Not Given AC [facility] Sodium Hypochlorite 1 applic 11/09/19 10:00 11/13/19 21:49 Dakin's Full Strength TP 1 applicatio Q12H FATMATA Administration
--- NOTE | 2019-11-14 11:29 | Anesthesia Consultation ---
<ERWIN JO - Last Filed: 11/14/19 11:24> Anesthesia Consult and Med Hx Date of service: 11/14/19 - Airway Anesthetic Teeth Evaluation: Good ROM Head & Neck: Adequate Mental/Hyoid Distance: Adequate Mallampati Class: Class II Intubation Access Assessment: Probably Good - Pulmonary Exam CTA: Yes - Cardiac Exam Cardiac Exam: RRR - Pre-Operative Health Status ASA Pre-Surgery Classification: ASA3 Proposed Anesthetic Plan: General - Pulmonary Hx Smoking: Yes (Quit 25-30 years ago) Hx Asthma: No Hx Respiratory Symptoms: Yes (Recent URTI- dry cough noted) COPD: No Hx Pneumonia: No Hx Sleep Apnea: No (GRECIA PRE SCREEN HIGH RISK) - Cardiovascular System Hx Hypertension: Yes Hx Heart Attack/AMI: No Hx Angina: No Hx Heart Murmur: Yes (CAUSES NO PROBLEMS) - Central Nervous System Hx Seizures: No Hx Psychiatric Problems: No - Gastrointestinal Hx Ulcer: No (Hx chronic pancreatitis) Hx Gastroesophageal Reflux Disease: Yes (Remote Hx.) - Endocrine Hx Renal Disease: Yes (HD TTS) Hx End Stage Renal Disease: Yes Hx Insulin Dependent Diabetes: Yes - Hematic Hx Anemia: Yes - Other Systems Hx Alcohol Use: No Hx Substance Use: No Hx Cancer: No - Additional Comments Anesthesia Medical History Comments: Denied previous anesthesia complications. H/H- 8.0/25.4; Potassium- 4.0 <RICHAR TALBOT - Last Filed: 11/15/19 15:24> Anesthesia Consult and Med Hx - Additional Comments Anesthesia Medical History Comments: Examined immediately prior to procedure. No nausea/vominting today.
[2019-11-14] MEDS: FOLIC ACID 1 MG TAB PO SCH (11:30)
--- NOTE | 2019-11-14 11:30 | Anesthesia Day of Surgery ---
Anesthesia Day of Surgery - Day of Surgery Patient Examined: Yes Patient H&P Reviewed: Yes Patient is NPO: Yes
--- NOTE | 2019-11-14 18:08 | Event Note ---
Date: 11/14/19 Patient's right BKA is rescheduled for tomorrow Resume diet, nothing by mouth from midnight
[2019-11-14] MEDS: ALPRAZolam 0.25 MG TAB PO PRN (18:39)
[2019-11-14] MEDS: CEFEPIME/NS 1 GM/100 ML 1 GM/100 ML BAG IV SCH (21:24)
[2019-11-14] MEDS: INSULIN GLARGINE 100 UNITS/ML SUB-Q SCH (22:11)
[2019-11-15] MEDS: HYDROmorphone 1 MG/1 ML INJ IV PRN ×2 (05:05→21:56)
[2019-11-15 06:03] LABS: Calcium 8.6 mg/dL (8.4-10.2)
[2019-11-15] MEDS ORDERED: HYDROmorphone 1 MG/1 ML INJ IV PRN (07:27)
[2019-11-15] MEDS: ALPRAZolam 0.25 MG TAB PO PRN (07:35)
[2019-11-15] MEDS ORDERED: DEXTROSE 50% IN WATER (25GM) 50 ML SYRINGE IV PRN (08:37)
[2019-11-15] MEDS: METOCLOPRAMIDE 10 MG TAB PO SCH ×4 (08:39→22:11)
[2019-11-15] MEDS: INSULIN LISPRO 100 UNIT/ML SUB-Q SCH ×3 (08:39→16:30)
[2019-11-15] MEDS: GABAPENTIN 300 MG CAP PO SCH ×3 (08:42→22:11)
[2019-11-15] MEDS: SEVELAMER CARBONATE 800 MG TAB PO SCH ×3 (08:42→16:30)
[2019-11-15] MEDS ORDERED: SODIUM CHLORIDE*PRIMING MACHINE ONLY FOR DIALYSIS MC ONE (09:11)
[2019-11-15] MEDS: EPOETIN ALFA 10,000 UNIT/1 ML INJ IV PRN (12:18)
[2019-11-15] MEDS: SODIUM HYPOCHLORITE, DAKIN'S FULL STRENGTH (0.5%) 473 ML TOPICAL SOLN TP SCH (12:27)
[2019-11-15] MEDS: FOLIC ACID 1 MG TAB PO SCH (12:28)
--- NOTE | 2019-11-15 13:08 | Progress Note ---
Assessment and Plan Assessment and plan: --Scheduled for right BKA today Patient nothing by mouth status --Abscesses right foot; IV antibiotics, wound care, and cultures Status post surgical debridement --Sepsis secondary to right foot abscess; Status post surgical debridement , possible right BKA today continue current antibiotics, Follow cultures --Peripheral neuropathy; continue gabapentin --End-stage renal disease; on hemodialysis Nephrology following HD per schedule --Hypertension; Moderate control'resume multiple home antihypertensives When necessary medications --Type 2 diabetes mellitus; Accu-Chek sliding scale coverage ADA diet --DVT prophylaxis; heparin during this--Full CODE STATUS, Monitor closely and adjust management as needed Plan of care reviewed with the patient and has not's Disposition; follow surgery recommendations Possible discharge when medically stable History Interval history: Patient seen and examined this morning medical records reviewed Patient is scheduled for right BKA N.p.o. status Also scheduled for hemodialysis Patient is little anxious about the surgery Vital signs noted Hospitalist Physical - Constitutional Vitals: Temp Pulse Resp BP Pulse Ox 98.8 F 75 20 148/73 100 11/15/19 08:50 11/15/19 12:15 11/15/19 08:50 11/15/19 12:30 11/15/19 08:50 General appearance: Present: no acute distress, well-nourished - EENT Eyes: Present: PERRL, EOM intact - Neck Neck: Present: supple, normal ROM - Respiratory Respiratory effort: normal Respiratory: bilateral: diminished, negative: rales, rhonchi, wheezing - Cardiovascular Rhythm: regular Heart Sounds: Present: S1 & S2 - Extremities Extremities: no ischemia, No edema, abnormal (Left BKA) Extremity abnormal: other (Right leg infected wound and dressing) - Abdominal General gastrointestinal: soft, non-tender, non-distended, normal bowel sounds - Integumentary Integumentary: Present: clear, warm - Psychiatric Psychiatric: appropriate mood/affect - Neurologic Neurologic: CNII-XII intact, moves all extremities Results - Labs CBC & Chem 7: 11/16/19 05:11 11/15/19 04:52 Labs: Laboratory Last Values WBC 13.5 K/mm3 (4.5-11.0) H 11/14/19 06:05 RBC 3.55 M/mm3 (3.65-5.03) L 11/14/19 06:05 Hgb 8.0 gm/dl (10.1-14.3) L 11/14/19 06:05 Hct 25.4 % (30.3-42.9) L 11/14/19 06:05 MCV 72 fl (79-97) L 11/14/19 06:05 MCH 23 pg (28-32) L 11/14/19 06:05 MCHC 32 % (30-34) 11/14/19 06:05 RDW 18.3 % (13.2-15.2) H 11/14/19 06:05 Plt Count 348 K/mm3 (140-440) 11/14/19 06:05 Lymph % (Auto) 8.6 % (13.4-35.0) L 11/11/19 10:13 [place] % (Auto) 7.6 % (0.0-7.3) H 11/11/19 10:13 Eos % (Auto) 1.3 % (0.0-4.3) 11/11/19 10:13 Baso % (Auto) 0.9 % (0.0-1.8) 11/11/19 10:13 Lymph # 1.5 K/mm3 (1.2-5.4) 11/11/19 10:13 [place] # 1.4 K/mm3 (0.0-0.8) H 11/11/19 10:13 Eos # 0.2 K/mm3 (0.0-0.4) 11/11/19 10:13 Baso # 0.2 K/mm3 (0.0-0.1) H 11/11/19 10:13 Add Manual Diff Complete 11/14/19 06:05 Total Counted 100 11/14/19 06:05 Seg Neutrophils % 81.6 % (40.0-70.0) H 11/11/19 10:13 Seg Neuts % (Manual) 84.0 % (40.0-70.0) H 11/14/19 06:05 Band Neutrophils % 0 % 11/14/19 06:05 Lymphocytes % (Manual) 9.0 % (13.4-35.0) L 11/14/19 06:05 Reactive Lymphs % (Man) 0 % 11/14/19 06:05 Monocytes % (Manual) 4.0 % (0.0-7.3) 11/14/19 06:05 Eosinophils % (Manual) 3.0 % (0.0-4.3) 11/14/19 06:05 Basophils % (Manual) 0 % (0.0-1.8) 11/14/19 06:05 Metamyelocytes % 0 % 11/14/19 06:05 Myelocytes % 0 % 11/14/19 06:05 Promyelocytes % 0 % 11/14/19 06:05 Blast Cells % 0 % 11/14/19 06:05 Nucleated RBC % Not Reportable 11/14/19 06:05 Seg Neutrophils # 14.6 K/mm3 (1.8-7.7) H 11/11/19 10:13 Seg Neutrophils # Man 11.3 K/mm3 (1.8-7.7) H 11/14/19 06:05 Band Neutrophils # 0.0 K/mm3 11/14/19 06:05 Lymphocytes # (Manual) 1.2 K/mm3 (1.2-5.4) 11/14/19 06:05 Abs React Lymphs (Man) 0.0 K/mm3 11/14/19 06:05 Monocytes # (Manual) 0.5 K/mm3 (0.0-0.8) 11/14/19 06:05 Eosinophils # (Manual) 0.4 K/mm3 (0.0-0.4) 11/14/19 06:05 Basophils # (Manual) 0.0 K/mm3 (0.0-0.1) 11/14/19 06:05 Metamyelocytes # 0.0 K/mm3 11/14/19 06:05 Myelocytes # 0.0 K/mm3 11/14/19 06:05 Promyelocytes # 0.0 K/mm3 11/14/19 06:05 Blast Cells # 0.0 K/mm3 11/14/19 06:05 WBC Morphology Not Reportable 11/14/19 06:05 Hypersegmented Neuts Not Reportable 11/14/19 06:05 Hyposegmented Neuts Not Reportable 11/14/19 06:05 Hypogranular Neuts Not Reportable 11/14/19 06:05 Smudge Cells Not Reportable 11/14/19 06:05 Toxic Granulation Not Reportable 11/14/19 06:05 Toxic Vacuolation Not Reportable 11/14/19 06:05 Dohle Bodies Not Reportable 11/14/19 06:05 Pelger-Huet Anomaly Not Reportable 11/14/19 06:05 Mary Lou Rods Not Reportable 11/14/19 06:05 Platelet Estimate Consistent w auto 11/14/19 06:05 Clumped Platelets Not Reportable 11/14/19 06:05 Plt Clumps, EDTA Not Reportable 11/14/19 06:05 Large Platelets Not Reportable 11/14/19 06:05 Giant Platelets Not Reportable 11/14/19 06:05 Platelet Satelliting Not Reportable 11/14/19 06:05 Plt Morphology Comment Not Reportable 11/14/19 06:05 RBC Morphology Not Reportable 11/14/19 06:05 Dimorphic RBCs Not Reportable 11/14/19 06:05 Polychromasia Not Reportable 11/14/19 06:05 Hypochromasia 1+ 11/14/19 06:05 Poikilocytosis 1+ 11/14/19 06:05 Anisocytosis 1+ 11/14/19 06:05 Microcytosis Not Reportable 11/14/19 06:05 Macrocytosis Not Reportable 11/14/19 06:05 Spherocytes Not Reportable 11/14/19 06:05 Pappenheimer Bodies Not Reportable 11/14/19 06:05 Sickle Cells Not Reportable 11/14/19 06:05 Target Cells 2+ 11/14/19 06:05 Tear Drop Cells Not Reportable 11/14/19 06:05 Ovalocytes Few 11/14/19 06:05 Helmet Cells Not Reportable 11/14/19 06:05 [place] Bodies Not Reportable 11/14/19 06:05 [place] Rings Not Reportable 11/14/19 06:05 [place] Cells Not Reportable 11/14/19 06:05 Bite Cells Not Reportable 11/14/19 06:05 Crenated Cell Not Reportable 11/14/19 06:05 Elliptocytes Not Reportable 11/14/19 06:05 Acanthocytes (Spur) Not Reportable 11/14/19 06:05 Rouleaux Not Reportable 11/14/19 06:05 Hemoglobin C Crystals Not Reportable 11/14/19 06:05 Schistocytes Not Reportable 11/14/19 06:05 Malaria parasites Not Reportable 11/14/19 06:05 Sigifredo Bodies Not Reportable 11/14/19 06:05 Hem Pathologist Commnt No 11/14/19 06:05 Sodium 132 mmol/L (137-145) L 11/15/19 04:52 Potassium 4.4 mmol/L (3.6-5.0) 11/15/19 04:52 Chloride 91.2 mmol/L (98-107) L 11/15/19 04:52 Carbon Dioxide 25 mmol/L (22-30) 11/15/19 04:52 Anion Gap 20 mmol/L 11/15/19 04:52 BUN 28 mg/dL (7-17) H 11/15/19 04:52 Creatinine 4.6 mg/dL (0.7-1.2) H 11/15/19 04:52 Estimated GFR 12 ml/min 11/15/19 04:52 BUN/Creatinine Ratio 6 % 11/15/19 04:52 Glucose 111 mg/dL (65-100) H 11/15/19 04:52 POC Glucose 126 (70-105) H 11/15/19 12:53 Calcium 8.6 mg/dL (8.4-10.2) 11/15/19 04:52 Magnesium 2.20 mg/dL (1.7-2.3) 11/08/19 06:09 Total Bilirubin 0.70 mg/dL (0.1-1.2) 11/13/19 08:46 Direct Bilirubin 0.5 mg/dL (0-0.2) H 11/08/19 06:09 Indirect Bilirubin 0.2 mg/dL 11/08/19 06:09 AST 14 units/L (5-40) 11/13/19 08:46 ALT < 5 units/L (7-56) L 11/13/19 08:46 Alkaline Phosphatase 779 units/L (35-129) H 11/13/19 08:46 Total Protein 7.7 g/dL (6.3-8.2) 11/13/19 08:46 Albumin 2.6 g/dL (3.9-5) L 11/13/19 08:46 Albumin/Globulin Ratio 0.5 % 11/13/19 08:46 Random Vancomycin 14.3 ug/mL (0-40.0) 11/13/19 08:46 Hepatitis A IgM Ab Non-reactive (NonReactive) 11/07/19 20:19 Hep Bs Antigen Non-reactive (Negative) 11/07/19 20:19 Hep B Core IgM Ab Non-reactive (NonReactive) 11/07/19 20:19 Hepatitis C Antibody Non-reactive (NonReactive) 11/07/19 20:19 Influenza A (Rapid) Negative (Negative) 11/11/19 Unknown Influenza B (Rapid) Negative (Negative) 11/11/19 Unknown Blood Type O POSITIVE 11/14/19 14:32 Antibody Screen Negative 11/14/19 14:32 Active Medications - Current Medications Current Medications: Generic Name Dose Route Start Last Admin Trade Name Freq PRN Reason Stop Dose Admin Acetaminophen 650 mg 11/10/19 19:22 11/10/19 20:13 Tylenol PO 650 mg Q6H PRN Administration Fever >101 Alprazolam 0.25 mg 11/14/19 17:43 11/15/19 07:35 Xanax PO 0.25 mg Q8H PRN Administration Anxiety Dextrose 50 ml 11/15/19 08:37 D50w (25gm) Syringe IV Q30MIN PRN Hypoglycemia Protocol Epoetin Jacoby 10,000 unit 11/13/19 08:42 11/15/19 12:18 Procrit IV 10,000 unit FRANCOIS PRN Administration Dialysis Folic Acid 1 mg 11/08/19 10:00 11/15/19 12:28 Folvite PO Not Given QDAY FATMATA Gabapentin 300 mg 11/10/19 20:00 11/15/19 08:42 Gabapentin PO Not Given TID FATMATA Hydrocodone Bit/Homatropine Methylb 10 ml 11/09/19 13:18 11/13/19 06:18 Hydromet PO 10 ml Q6H PRN Administration Cough Hydromorphone HCl 1 mg 11/09/19 09:04 11/15/19 05:05 Dilaudid IV 1 mg Q4H PRN Administration Pain , Severe (7-10) Hydromorphone HCl 0.5 mg 11/15/19 07:27 Dilaudid IV 11/15/19 20:00 Q10MIN PRN Pain , Severe (7-10) Hydroxyzine HCl 10 mg 11/07/19 23:51 11/08/19 00:15 Atarax PO 10 mg Q6H PRN Administration Itching Sodium Chloride 100 mls @ 999 mls/hr 11/07/19 17:05 Nacl 0.9% IV FRANCOIS PRN Hypotension Cefepime HCl 1 gm in 100 mls @ 200 mls/hr 11/07/19 22:00 11/14/19 22:26 Cefepime/Ns 1 Gm/100 Ml IV Infused Q24H FATMATA Infusion Vancomycin HCl 1 gm in 250 mls @ 167.007 mls/hr 11/10/19 18:00 11/14/19 20:22 Vancomycin/Ns 1 Gm/250 Ml IV Infused TuThSa@1800 FATMATA Infusion Insulin Glargine 15 units 11/07/19 22:00 11/14/19 22:11 Lantus SUB-Q 15 units QHS FATMATA Administration Insulin Human Lispro 0 unit 11/07/19 16:30 11/15/19 12:28 Humalog SUB-Q Not Given ACHS [facility] Protocol Metoclopramide HCl 5 mg 11/07/19 16:30 11/15/19 12:28 Reglan PO Not Given ACHS [facility] Oxycodone/Acetaminophen 1 tab 11/08/19 22:31 Percocet 5/325 PO Q6H PRN Pain, Moderate (4-6) Sevelamer Carbonate 1,600 mg 11/09/19 07:30 11/15/19 12:28 Renvela PO Not Given AC [facility] Sodium Hypochlorite 1 applic 11/09/19 10:00 11/15/19 12:27 Dakin's Full Strength TP Not Given Q12H [facility] Nutrition/Malnutrition Assess - Dietary Evaluation Nutrition/Malnutrition Findings: Nutrition Notes Start: 11/14/19 11:29 Freq: Status: Active Protocol: Document 11/14/19 11:29 BEKA (Rec: 11/14/19 11:39 BEKA [id number]) Co-Sign 11/14/19 11:29 LP Nutrition Notes Need for Assessment generated from: LOS Initial or Follow up Brief Note Current Diagnosis CKD (stage V CKD),Diabetes, Hypertension Other Pertinent Diagnosis on HD, left BKA Current Diet NPO Labs/Tests Na 136 BUN 25 Cr 3.8 Pertinent Medications Reviewed Height 5 ft 7 in Weight 76.9 kg Usual Body Weight 68.1 kg [place] Body Weight (kg) 61.36 BMI 26.5 Intake Prior to Admission Fair Subjective/Other Information RD screen for LOS. 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 Pt stated that her appetite was good, but doesn't like the food. Preferences were noted. Pt ate 0% of breakfast due to NPO for right BKA surgery. Burn Absent Trauma Absent GI Symptoms None Minimum of two criteria No physical signs of malnutrition #1 Nutrition Diagnosis Increased nutrient needs ( specify in comment below) Comments: Protein Etiology Wound healing As Evidenced by Signs and Symptoms Right BKA surgery Is patient on ventilator? No Is Patient Ambulatory and/or Out of Bed No REE-([place]-confined to bed) [phone] Calculation [facility]ations [facility] Additional Notes Protein: 96-115g (1.25-1.5g/kg ) Fluid: 1 ml/kcal Nutrition Intervention Change Diet Order: Advance diet when medically feasible Goal #1 Meet a least 75% of energy and protein needs via PO intakes. Goal #2 Wound healing Anticipated Discharge Needs: Renal diet Follow-Up By: 11/16/19 Additional Comments F/U for PO intakes and ONS need
[2019-11-15] MEDS ORDERED: HYDROmorphone 1 MG/1 ML INJ IV ONE (13:51)
--- NOTE | 2019-11-15 14:00 | Progress Note ---
Assessment and Plan - Patient Problems (1) Foot abscess, right Current Visit: Yes Status: Acute Plan to address problem: Continue current antibiotic regimen, and please ensure that antibiotics are dosed appropriately for her diminished renal function. S/P debridement. Plan for right BKA today. (2) ESRD (end stage renal disease) Current Visit: No Status: Chronic Plan to address problem: Continue on TTS HD schedule. (3) Hypertensive chronic kidney disease with stage 5 chronic kidney disease or end stage renal disease Current Visit: No Status: Chronic Plan to address problem: Monitor blood pressures with current regimen. (4) Type 2 diabetes mellitus with diabetic chronic kidney disease Current Visit: No Status: Chronic Qualifiers: Chronic kidney disease stage: on chronic dialysis Plan to address problem: DM management per primary attending. (5) Anemia in chronic illness Current Visit: No Status: Chronic Plan to address problem: XI therapy with HD sessions. Subjective Date of service: 11/15/19 Principal diagnosis: ESRD, foot ulcer Interval history: Plan for surgery today. She tolerated HD well without any issues. Objective - Vital Signs Vital signs: Vital Signs - 12hr 11/15/19 11/15/19 11/15/19 05:48 08:50 09:00 Temperature 99.0 F 98.8 F Pulse Rate 92 H 83 85 Respiratory 18 20 Rate Blood Pressure 159/77 136/70 137/67 O2 Sat by Pulse 96 Oximetry O2 Sat by Pulse 100 Oximetry [ Anterior Bilateral Throughout] 11/15/19 11/15/19 11/15/19 09:15 09:30 09:45 Temperature Pulse Rate 81 81 82 Respiratory Rate Blood Pressure 132/64 125/60 119/65 O2 Sat by Pulse Oximetry O2 Sat by Pulse Oximetry [ Anterior Bilateral Throughout] 11/15/19 11/15/19 11/15/19 10:00 10:15 10:30 Temperature Pulse Rate 79 79 79 Respiratory Rate Blood Pressure 118/60 128/60 128/64 O2 Sat by Pulse Oximetry O2 Sat by Pulse Oximetry [ Anterior Bilateral Throughout] 11/15/19 11/15/19 11/15/19 10:45 11:00 11:15 Temperature Pulse Rate 81 79 80 Respiratory Rate Blood Pressure 131/63 129/63 153/76 O2 Sat by Pulse Oximetry O2 Sat by Pulse Oximetry [ Anterior Bilateral Throughout] 11/15/19 11/15/19 11/15/19 11:30 11:45 12:00 Temperature Pulse Rate 78 74 73 Respiratory Rate Blood Pressure 140/70 126/62 131/66 O2 Sat by Pulse Oximetry O2 Sat by Pulse Oximetry [ Anterior Bilateral Throughout] 11/15/19 11/15/19 11/15/19 12:15 12:30 13:02 Temperature 98.2 F Pulse Rate 75 71 Respiratory 20 Rate Blood Pressure 129/65 148/73 137/72 O2 Sat by Pulse Oximetry O2 Sat by Pulse 100 Oximetry [ Anterior Bilateral Throughout] - General Appearance General appearance: well-nourished, appears stated age EENT: ATNC, PERRL Neck: no JVD, no thyromegaly Respiratory: Present: Clear to Ascultation Cardiology: regular, S1S2 Gastrointestinal: normal, normoactive bowel sounds Integumentary: warm and dry Neurologic: no focal deficit, alert and oriented x3 Musculoskeletal: deferred Psychiatric: mood/affect appropriate, cooperative - Lab 11/14/19 06:05 11/15/19 04:52 Most recent lab results Calcium 8.6 mg/dL (8.4-10.2) 11/15/19 04:52 Magnesium 2.20 mg/dL (1.7-2.3) 11/08/19 06:09 - Imaging Other: pending - Allied health notes Allied health notes reviewed: nursing Medications & Allergies - Medications Allergies/Adverse Reactions: Allergies amlodipine Allergy (Verified 09/26/19 16:04) Itching losartan Allergy (Verified 09/26/19 16:04) Itching sulfamethoxazole [From Bactrim] Allergy (Verified 09/26/19 16:04) Rash trimethoprim [From Bactrim] Allergy (Verified 09/26/19 16:04) Rash morphine Adverse Reaction (Verified 09/26/19 16:04) Vomiting Home Medications: Home Medications Medication Instructions Recorded Confirmed Last Taken Type Epoetin Jacoby 10,000 Unit [Procrit] 5,000 unit IV FRANCOIS PRN vial 07/13/19 11/07/19 Unknown Rx Gabapentin 100 mg PO BID #60 capsule 07/13/19 11/07/19 Unknown Rx Insulin Glargine [Lantus VIAL] 15 units SUB-Q QHS 30 Days units 07/13/19 11/07/19 Unknown Rx Lispro Insulin [HumaLOG] See Protocol SUB-Q ACHS 30 Days 07/13/19 11/07/19 Unknown Rx units Metoprolol [Lopressor TAB] 100 mg PO BID #60 tablet 07/13/19 11/07/19 Unknown Rx NIFEdipine XL [Procardia Xl] 60 mg PO QDAY #30 tablet 07/13/19 11/07/19 Unknown Rx Torsemide [Demadex] 60 mg PO DAILY 30 Days tablet 07/13/19 11/07/19 Unknown Rx Zolpidem [Ambien] 5 mg PO QHS PRN #15 tablet 07/13/19 11/07/19 Unknown Rx cloNIDine [Catapres] 0.1 mg PO Q12H PRN #60 tablet 07/13/19 11/07/19 Unknown Rx hydrALAZINE [Apresoline TAB] 100 mg PO Q8HR #90 tab 07/13/19 11/07/19 Unknown Rx Sodium Hypochlorite [Dakin's Half 1 applic TP BID #1 bottle 09/21/19 11/07/19 Unknown Rx Strength] Active Medications: Generic Name Dose Route Start Last Admin Trade Name Freq PRN Reason Stop Dose Admin Acetaminophen 650 mg 11/10/19 19:22 11/10/19 20:13 Tylenol PO 650 mg Q6H PRN Administration Fever >101 Alprazolam 0.25 mg 11/14/19 17:43 11/15/19 07:35 Xanax PO 0.25 mg Q8H PRN Administration Anxiety Dextrose 50 ml 11/15/19 08:37 D50w (25gm) Syringe IV Q30MIN PRN Hypoglycemia Protocol Epoetin Jacoby 10,000 unit 11/13/19 08:42 11/15/19 12:18 Procrit IV 10,000 unit FRANCOIS PRN Administration Dialysis Folic Acid 1 mg 11/08/19 10:00 11/15/19 12:28 Folvite PO Not Given QDAY FATMATA Gabapentin 300 mg 11/10/19 20:00 11/15/19 08:42 Gabapentin PO Not Given TID FATMATA Hydrocodone Bit/Homatropine Methylb 10 ml 11/09/19 13:18 11/13/19 06:18 Hydromet PO 10 ml Q6H PRN Administration Cough Hydromorphone HCl 1 mg 11/09/19 09:04 11/15/19 05:05 Dilaudid IV 1 mg Q4H PRN Administration Pain , Severe (7-10) Hydromorphone HCl 0.5 mg 11/15/19 07:27 Dilaudid IV 11/15/19 20:00 Q10MIN PRN Pain , Severe (7-10) Hydromorphone HCl 0.5 mg 11/15/19 13:51 Dilaudid IV 11/15/19 13:52 ONCE ONE Hydroxyzine HCl 10 mg 11/07/19 23:51 11/08/19 00:15 Atarax PO 10 mg Q6H PRN Administration Itching Sodium Chloride 100 mls @ 999 mls/hr 11/07/19 17:05 Nacl 0.9% IV FRANCOIS PRN Hypotension Cefepime HCl 1 gm in 100 mls @ 200 mls/hr 11/07/19 22:00 11/14/19 22:26 Cefepime/Ns 1 Gm/100 Ml IV Infused Q24H [facility] Infusion Vancomycin HCl 1 gm in 250 mls @ 167.007 mls/hr 11/10/19 18:00 11/14/19 20:22 Vancomycin/Ns 1 Gm/250 Ml IV Infused TuThSa@1800 FATMATA Infusion Insulin Glargine 15 units 11/07/19 22:00 11/14/19 22:11 Lantus SUB-Q 15 units QHS FATMATA Administration Insulin Human Lispro 0 unit 11/07/19 16:30 11/15/19 12:28 [facility] Protocol Metoclopramide HCl 5 mg 11/07/19 16:30 11/15/19 12:28 Reglan PO Not Given [facility] Oxycodone/Acetaminophen 1 tab 11/08/19 22:31 Percocet 5/325 PO Q6H PRN Pain, Moderate (4-6) Sevelamer Carbonate 1,600 mg 11/09/19 07:30 11/15/19 12:28 Renvela PO Not Given AC [facility] Sodium Hypochlorite 1 applic 11/09/19 10:00 11/15/19 12:27 Dakin's Full Strength TP Not Given Q12H [facility]
[2019-11-15] MEDS ORDERED: fentaNYL 100 MCG/2 ML INJ ONE (15:02)
[2019-11-15] MEDS ORDERED: LIDOCAINE MPF (2%) 20 MG/1 ML VIAL 5 ML ONE (15:02)
[2019-11-15] MEDS ORDERED: PROPOFOL 200 MG/20 ML VIAL IV ONE (15:03)
--- NOTE | 2019-11-15 15:25 | Anesthesia Day of Surgery ---
Anesthesia Day of Surgery - Day of Surgery Patient Examined: Yes Patient H&P Reviewed: Yes Patient is NPO: Yes
[2019-11-15] MEDS ORDERED: SODIUM CHLORIDE 0.9% IRR 1,000 ML BOTTLE IR ONE (15:40)
[2019-11-15] MEDS ORDERED: PHENYLEPHRINE/NS 1,000 MCG/10 ML SYRINGE (OR USE) IV ONE (15:57)
[2019-11-15] MEDS ORDERED: ePHEDrine SULFATE 50 MG/1 ML INJ ONE (15:57)
[2019-11-15] MEDS ORDERED: PHENYLEPHRINE 10 MG/1 ML INJ SDV ONE (16:01)
--- NOTE | 2019-11-15 16:03 | XRay Report ---
RIGHT KNEE ONE VIEW HISTORY: Diabetic foot abscess, right FINDINGS: 2.5 minutes of fluoroscopy time was provided by radiology during surgery. A single fluorosc opic image is presented of the proximal right tibia and fibula demonstrating a a marker overlying the inferior tip of intramedullary hardware in the tibia. Patient is to undergo below the knee amputatio n and this film was for localization of the hardware. Please correlate with the procedural report as needed. Signer Name: Trevon Martinez Jr, MD Signed: 11/15/2019 3:59 PM Workstation Name: [id number]
[2019-11-15] MEDS ORDERED: SODIUM CHLORIDE 0.9% 500 ML 500 ML IV SCH (16:07)
[2019-11-15] MEDS ORDERED: VASOPRESSIN 20 UNIT/1 ML INJ ONE (16:08)
[2019-11-15] MEDS ORDERED: SODIUM CHLORIDE 0.9% 500 ML 500 ML IV NR (16:18)
--- NOTE | 2019-11-15 16:42 | Procedure Note ---
Date of procedure: 11/15/19 Pre-op diagnosis: chronic diabetic foot ulcers right leg Post-op diagnosis: same Procedure: Right below knee amputation Procedure The patient was brought to the OR placed your table supine position following induction of intubation anesthesia patient was positioned right lower extremity was prepped and draped in the usual sterile manner A, procedure was done to identify the patient and the correct operative site The leg was elevated approximately 2 minutes this was followed by inflation of the pneumatic tourniquet to 300 mmHg using using a typical [place] type incision the anterior flaps were developed and taken down sharply to the tibia Gigli saw was used to resect the tibia beginning posterior and beveling anterior maxillary fibula was resected approximately 1 inch proximal to the tibial resection was taken to identify the neurovascular structures due to were then ligated using 2- 0 Vicryl's stitches next the wound was then irrigated the posterior flap was pulled anteriorly and sewn into the SURROUNDING soft tissue the skin was closed in a routine fashion using 2-0 nylon to postop dressings were applied as well as a compressive dressing to the right BKA stump. Patient was then extubated and was taken to postanesthesia recovery in stable condition Anesthesia: CHEN Surgeon: SUMAN ARAGON Continuous Process Coffee Roaster: BELINDA OLIVO Estimated blood loss: other (400 mL) Pathology: list (right lower limb) Specimen disposition: to lab Condition: stable Disposition: PACU
[2019-11-15] MEDS ORDERED: HYDROmorphone 1 MG/1 ML INJ ONE (17:32)
--- NOTE | 2019-11-15 19:08 | Post Anesthesia Evaluation ---
- Post Anesthesia Evaluation Patient Participated: Yes Airway Patent: Yes Stable Respiratory Function: Yes Nausea/Vomiting: No Temp > 96.8F: Yes Pain Manageable: Yes Adequeate Hydration: Yes Anesthesia Complications: No Other Comments: Received 2 units pRBCs. 1st unit started urgently intraop in the setting of significant hypotension 2/2 acute blood loss. Prior to starting 2nd unit in PACU, patient gave verbal consent for blood product administration and Liz Woodall (sister) gave written consent over the phone. Both witnessed by RN. BP improved and stable after transfusion. No reactions noted.
[2019-11-15] MEDS: VANCOMYCIN/NS 1 GM/250 ML 1 GM/250 ML BAG IV SCH (21:49)
[2019-11-16] MEDS: MORPHINE 2 MG/1 ML INJ IV PRN (01:01)
[2019-11-16] MEDS: INSULIN GLARGINE 100 UNITS/ML SUB-Q SCH (01:37)
[2019-11-16] MEDS: ALPRAZolam 0.25 MG TAB PO PRN (01:42)
[2019-11-16] MEDS: HYDROmorphone 1 MG/1 ML INJ IV PRN ×4 (05:40→22:41)
[2019-11-16] MEDS: CEFEPIME/NS 1 GM/100 ML 1 GM/100 ML BAG IV SCH ×2 (05:40→22:36)
[2019-11-16 05:44] LABS: Hematocrit 26.3 % (30.3-42.9); Hemoglobin 8.7 gm/dl (10.1-14.3)
[2019-11-16] MEDS: INSULIN LISPRO 100 UNIT/ML SUB-Q SCH ×3 (06:52→11:30)
[2019-11-16] MEDS: SODIUM HYPOCHLORITE, DAKIN'S FULL STRENGTH (0.5%) 473 ML TOPICAL SOLN TP SCH ×3 (06:53→21:41)
--- NOTE | 2019-11-16 08:11 | Progress Note ---
Assessment and Plan Assessment and plan: --Status post right below-knee amputation Continue postop care, Pain management, wound care Physical therapy occupational therapy Rehabilitation --Abscesses right cheryl/leg wound; sent on admission s/p surgical debridement s/p right BKA 11/15/2019 --Sepsis secondary to right foot abscess; Status post right BKA. On antibiotics ID following --Peripheral neuropathy; continue gabapentin --End-stage renal disease; on hemodialysis Nephrology following HD per schedule --Hypertension; Moderate control'resume multiple home antihypertensives When necessary medications --Type 2 diabetes mellitus; Accu-Chek sliding scale coverage ADA diet --DVT prophylaxis; heparin during this--Full CODE STATUS, Monitor closely and adjust management as needed Plan of care reviewed with the patient and has not's Disposition; physical therapy occupational therapy Rehabilitation DC planning per case management History Interval history: Patient had right below knee amputation yesterday Hospitalist Physical - Constitutional Vitals: Temp Pulse Resp BP Pulse Ox 98.8 F 89 16 130/74 97 11/16/19 04:17 11/16/19 04:17 11/16/19 06:10 11/16/19 04:17 11/16/19 04:17 General appearance: Present: no acute distress, well-nourished - EENT Eyes: Present: PERRL, EOM intact - Neck Neck: Present: supple, normal ROM - Respiratory Respiratory effort: normal Respiratory: bilateral: diminished, negative: rales, rhonchi, wheezing - Cardiovascular Rhythm: regular Heart Sounds: Present: S1 & S2 - Extremities Extremities: no ischemia, No edema - Abdominal General gastrointestinal: soft, non-tender, non-distended, normal bowel sounds - Integumentary Integumentary: Present: clear, clammy - Psychiatric Psychiatric: appropriate mood/affect, cooperative - Neurologic Neurologic: moves all extremities Results - Labs CBC & Chem 7: 11/16/19 05:11 11/15/19 04:52 Labs: Laboratory Last Values WBC 13.5 K/mm3 (4.5-11.0) H 11/14/19 06:05 RBC 3.55 M/mm3 (3.65-5.03) L 11/14/19 06:05 Hgb 8.7 gm/dl (10.1-14.3) L 11/16/19 05:11 Hct 26.3 % (30.3-42.9) L 11/16/19 05:11 MCV 72 fl (79-97) L 11/14/19 06:05 MCH 23 pg (28-32) L 11/14/19 06:05 MCHC 32 % (30-34) 11/14/19 06:05 RDW 18.3 % (13.2-15.2) H 11/14/19 06:05 Plt Count 348 K/mm3 (140-440) 11/14/19 06:05 Lymph % (Auto) 8.6 % (13.4-35.0) L 11/11/19 10:13 [place] % (Auto) 7.6 % (0.0-7.3) H 11/11/19 10:13 Eos % (Auto) 1.3 % (0.0-4.3) 11/11/19 10:13 Baso % (Auto) 0.9 % (0.0-1.8) 11/11/19 10:13 Lymph # 1.5 K/mm3 (1.2-5.4) 11/11/19 10:13 [place] # 1.4 K/mm3 (0.0-0.8) H 11/11/19 10:13 Eos # 0.2 K/mm3 (0.0-0.4) 11/11/19 10:13 Baso # 0.2 K/mm3 (0.0-0.1) H 11/11/19 10:13 Add Manual Diff Complete 11/14/19 06:05 Total Counted 100 11/14/19 06:05 Seg Neutrophils % 81.6 % (40.0-70.0) H 11/11/19 10:13 Seg Neuts % (Manual) 84.0 % (40.0-70.0) H 11/14/19 06:05 Band Neutrophils % 0 % 11/14/19 06:05 Lymphocytes % (Manual) 9.0 % (13.4-35.0) L 11/14/19 06:05 Reactive Lymphs % (Man) 0 % 11/14/19 06:05 Monocytes % (Manual) 4.0 % (0.0-7.3) 11/14/19 06:05 Eosinophils % (Manual) 3.0 % (0.0-4.3) 11/14/19 06:05 Basophils % (Manual) 0 % (0.0-1.8) 11/14/19 06:05 Metamyelocytes % 0 % 11/14/19 06:05 Myelocytes % 0 % 11/14/19 06:05 Promyelocytes % 0 % 11/14/19 06:05 Blast Cells % 0 % 11/14/19 06:05 Nucleated RBC % Not Reportable 11/14/19 06:05 Seg Neutrophils # 14.6 K/mm3 (1.8-7.7) H 11/11/19 10:13 Seg Neutrophils # Man 11.3 K/mm3 (1.8-7.7) H 11/14/19 06:05 Band Neutrophils # 0.0 K/mm3 11/14/19 06:05 Lymphocytes # (Manual) 1.2 K/mm3 (1.2-5.4) 11/14/19 06:05 Abs React Lymphs (Man) 0.0 K/mm3 11/14/19 06:05 Monocytes # (Manual) 0.5 K/mm3 (0.0-0.8) 11/14/19 06:05 Eosinophils # (Manual) 0.4 K/mm3 (0.0-0.4) 11/14/19 06:05 Basophils # (Manual) 0.0 K/mm3 (0.0-0.1) 11/14/19 06:05 Metamyelocytes # 0.0 K/mm3 11/14/19 06:05 Myelocytes # 0.0 K/mm3 11/14/19 06:05 Promyelocytes # 0.0 K/mm3 11/14/19 06:05 Blast Cells # 0.0 K/mm3 11/14/19 06:05 WBC Morphology Not Reportable 11/14/19 06:05 Hypersegmented Neuts Not Reportable 11/14/19 06:05 Hyposegmented Neuts Not Reportable 11/14/19 06:05 Hypogranular Neuts Not Reportable 11/14/19 06:05 Smudge Cells Not Reportable 11/14/19 06:05 Toxic Granulation Not Reportable 11/14/19 06:05 Toxic Vacuolation Not Reportable 11/14/19 06:05 Dohle Bodies Not Reportable 11/14/19 06:05 Pelger-Huet Anomaly Not Reportable 11/14/19 06:05 Mary Lou Rods Not Reportable 11/14/19 06:05 Platelet Estimate Consistent w auto 11/14/19 06:05 Clumped Platelets Not Reportable 11/14/19 06:05 Plt Clumps, EDTA Not Reportable 11/14/19 06:05 Large Platelets Not Reportable 11/14/19 06:05 Giant Platelets Not Reportable 11/14/19 06:05 Platelet Satelliting Not Reportable 11/14/19 06:05 Plt Morphology Comment Not Reportable 11/14/19 06:05 RBC Morphology Not Reportable 11/14/19 06:05 Dimorphic RBCs Not Reportable 11/14/19 06:05 Polychromasia Not Reportable 11/14/19 06:05 Hypochromasia 1+ 11/14/19 06:05 Poikilocytosis 1+ 11/14/19 06:05 Anisocytosis 1+ 11/14/19 06:05 Microcytosis Not Reportable 11/14/19 06:05 Macrocytosis Not Reportable 11/14/19 06:05 Spherocytes Not Reportable 11/14/19 06:05 Pappenheimer Bodies Not Reportable 11/14/19 06:05 Sickle Cells Not Reportable 11/14/19 06:05 Target Cells 2+ 11/14/19 06:05 Tear Drop Cells Not Reportable 11/14/19 06:05 Ovalocytes Few 11/14/19 06:05 Helmet Cells Not Reportable 11/14/19 06:05 [place] Bodies Not Reportable 11/14/19 06:05 [place] Rings Not Reportable 11/14/19 06:05 [place] Cells Not Reportable 11/14/19 06:05 Bite Cells Not Reportable 11/14/19 06:05 Crenated Cell Not Reportable 11/14/19 06:05 Elliptocytes Not Reportable 11/14/19 06:05 Acanthocytes (Spur) Not Reportable 11/14/19 06:05 Rouleaux Not Reportable 11/14/19 06:05 Hemoglobin C Crystals Not Reportable 11/14/19 06:05 Schistocytes Not Reportable 11/14/19 06:05 Malaria parasites Not Reportable 11/14/19 06:05 [place] Bodies Not Reportable 11/14/19 06:05 Hem Pathologist Commnt No 01/15/20 06:05 Sodium 132 mmol/L (137-145) L 11/15/19 04:52 Potassium 4.4 mmol/L (3.6-5.0) 11/15/19 04:52 Chloride 91.2 mmol/L (98-107) L 11/15/19 04:52 Carbon Dioxide 25 mmol/L (22-30) 11/15/19 04:52 Anion Gap 20 mmol/L 11/15/19 04:52 BUN 28 mg/dL (7-17) H 11/15/19 04:52 Creatinine 4.6 mg/dL (0.7-1.2) H 11/15/19 04:52 Estimated GFR 12 ml/min 11/15/19 04:52 BUN/Creatinine Ratio 6 % 11/15/19 04:52 Glucose 111 mg/dL (65-100) H 11/15/19 04:52 POC Glucose 65 (70-105) L 11/15/19 22:52 Calcium 8.6 mg/dL (8.4-10.2) 11/15/19 04:52 Magnesium 2.20 mg/dL (1.7-2.3) 11/08/19 06:09 Total Bilirubin 0.70 mg/dL (0.1-1.2) 11/13/19 08:46 Direct Bilirubin 0.5 mg/dL (0-0.2) H 11/08/19 06:09 Indirect Bilirubin 0.2 mg/dL 11/08/19 06:09 AST 14 units/L (5-40) 11/13/19 08:46 ALT < 5 units/L (7-56) L 11/13/19 08:46 Alkaline Phosphatase 779 units/L (35-129) H 11/13/19 08:46 Total Protein 7.7 g/dL (6.3-8.2) 11/13/19 08:46 Albumin 2.6 g/dL (3.9-5) L 11/13/19 08:46 Albumin/Globulin Ratio 0.5 % 11/13/19 08:46 Random Vancomycin 14.3 ug/mL (0-40.0) 11/13/19 08:46 Hepatitis A IgM Ab Non-reactive (NonReactive) 11/07/19 20:19 Hep Bs Antigen Non-reactive (Negative) 11/07/19 20:19 Hep B Core IgM Ab Non-reactive (NonReactive) 11/07/19 20:19 Hepatitis C Antibody Non-reactive (NonReactive) 11/07/19 20:19 Influenza A (Rapid) Negative (Negative) 11/11/19 Unknown Influenza B (Rapid) Negative (Negative) 11/11/19 Unknown Blood Type O POSITIVE 11/14/19 14:32 Antibody Screen Negative 11/14/19 14:32 Crossmatch See Detail 11/14/19 14:32 Active Medications - Current Medications Current Medications: Generic Name Dose Route Start Last Admin Trade Name Freq PRN Reason Stop Dose Admin Acetaminophen 650 mg 11/10/19 19:22 11/10/19 20:13 Tylenol PO 650 mg Q6H PRN Administration Fever >101 Alprazolam 0.25 mg 11/14/19 17:43 11/16/19 01:42 Xanax PO 0.25 mg Q8H PRN Administration Anxiety Dextrose 50 ml 11/15/19 08:37 D50w (25gm) Syringe IV Q30MIN PRN Hypoglycemia Protocol Epoetin Jacoby 10,000 unit 11/13/19 08:42 11/15/19 12:18 Procrit IV 10,000 unit FRANCOIS PRN Administration Dialysis Folic Acid 1 mg 11/08/19 10:00 11/15/19 12:28 Folvite PO Not Given QDAY FATMATA Gabapentin 300 mg 11/10/19 20:00 11/15/19 22:11 Gabapentin PO Not Given TID FATMATA Hydrocodone Bit/Homatropine Methylb 10 ml 11/09/19 13:18 11/13/19 06:18 Hydromet PO 10 ml Q6H PRN Administration Cough Hydromorphone HCl 1 mg 11/09/19 09:04 11/16/19 05:40 Dilaudid IV 1 mg Q4H PRN Administration Pain , Severe (7-10) Hydroxyzine HCl 10 mg 11/07/19 23:51 11/08/19 00:15 Atarax PO 10 mg Q6H PRN Administration Itching Sodium Chloride 100 mls @ 999 mls/hr 11/07/19 17:05 Nacl 0.9% IV FRANCOIS PRN Hypotension Cefepime HCl 1 gm in 100 mls @ 200 mls/hr 11/07/19 22:00 11/16/19 05:40 Cefepime/Ns 1 Gm/100 Ml IV 100 mls/hr Q24H FATMATA Administration Vancomycin HCl 1 gm in 250 mls @ 167.007 mls/hr 11/10/19 18:00 11/15/19 21:49 Vancomycin/Ns 1 Gm/250 Ml IV 167.007 mls/hr [id number]@1800 FATMATA Administration Sodium Chloride 500 mls @ 0 mls/hr 11/15/19 16:07 Nacl 0.9% 500 Ml IV ONCE FATMATA As Directed Insulin Glargine 15 units 11/07/19 22:00 11/16/19 01:37 Lantus SUB-Q Not Given QHS [facility] Insulin Human Lispro 0 unit 11/07/19 16:30 11/16/19 06:52 Humalog SUB-Q Not Given ACHS [facility] Protocol Metoclopramide HCl 5 mg 11/07/19 16:30 11/15/19 22:11 Reglan PO Not Given ACHS [facility] Morphine Sulfate 2 mg 11/15/19 16:43 11/16/19 01:01 Morphine IV 2 mg Q4H PRN Administration Pain, Moderate (4-6) Oxycodone/Acetaminophen 1 tab 11/08/19 22:31 Percocet 5/325 PO Q6H PRN Pain, Moderate (4-6) Sevelamer Carbonate 1,600 mg 11/09/19 07:30 11/15/19 16:30 Renvela PO Not Given AC [facility] Sodium Chloride 10 ml 11/15/19 17:00 Sodium Chloride Flush Syringe 10 Ml IV 11/16/19 16:59 PRN NR Sodium Hypochlorite 1 applic 11/09/19 10:00 11/16/19 06:53 Dakin's Full Strength TP Not Given Q12H [facility] Nutrition/Malnutrition Assess - Dietary Evaluation Nutrition/Malnutrition Findings: Nutrition Notes Start: 11/14/19 11:29 Freq: Status: Active Protocol: Document 11/14/19 11:29 BEKA (Rec: 11/14/19 11:39 BEKA [id number]) Co-Sign 11/14/19 11:29 LP Nutrition Notes Need for Assessment generated from: LOS Initial or Follow up Brief Note Current Diagnosis CKD (stage V CKD),Diabetes, Hypertension Other Pertinent Diagnosis on HD, left BKA Current Diet NPO Labs/Tests Na 136 BUN 25 Cr 3.8 Pertinent Medications Reviewed Height 5 ft 7 in Weight 76.9 kg Usual Body Weight 68.1 kg Alexander Body Weight (kg) 61.36 BMI 26.5 Intake Prior to Admission Fair Subjective/Other Information RD screen for LOS. Pt stated that [employer] she ate two meals a day which was normal. Pt stated that her appetite was good, but doesn't like the food. Preferences were noted. Pt ate 0% of breakfast due to NPO for right BKA surgery. Burn Absent Trauma Absent GI Symptoms None Minimum of two criteria No physical signs of malnutrition #1 Nutrition Diagnosis Increased nutrient needs ( specify in comment below) Comments: Protein Etiology Wound healing As Evidenced by Signs and Symptoms Right BKA surgery Is patient on ventilator? No Is Patient Ambulatory and/or Out of Bed No REE-([place]-[facility] Jeor-confined to bed) [phone] [facility]culation [facility] Additional Notes Protein: 96-115g (1.25-1.5g/kg ) Fluid: 1 ml/kcal Nutrition Intervention Change Diet Order: Advance diet when medically feasible Goal #1 Meet a least 75% of energy and protein needs via PO intakes. Goal #2 Wound healing Anticipated Discharge Needs: Renal diet Follow-Up By: 11/16/19 Additional Comments F/U for PO intakes and ONS need
[2019-11-16] MEDS: SEVELAMER CARBONATE 800 MG TAB PO SCH ×3 (08:22→15:52)
[2019-11-16] MEDS: GABAPENTIN 300 MG CAP PO SCH ×3 (08:22→22:36)
[2019-11-16] MEDS: METOCLOPRAMIDE 10 MG TAB PO SCH ×4 (08:23→23:50)
[2019-11-16] MEDS: FOLIC ACID 1 MG TAB PO SCH (10:10)
--- NOTE | 2019-11-16 10:13 | Progress Note ---
Assessment and Plan - Patient Problems (1) Foot abscess, right Current Visit: Yes Status: Acute Plan to address problem: Continue current antibiotic regimen, and please ensure that antibiotics are dosed appropriately for her diminished renal function. S/P debridement. s/p right BKA POD1. (2) ESRD (end stage renal disease) Current Visit: No Status: Chronic Plan to address problem: Continue on TTS HD schedule. (3) Hypertensive chronic kidney disease with stage 5 chronic kidney disease or end stage renal disease Current Visit: No Status: Chronic Plan to address problem: Monitor blood pressures with current regimen. (4) Type 2 diabetes mellitus with diabetic chronic kidney disease Current Visit: No Status: Chronic Qualifiers: Chronic kidney disease stage: on chronic dialysis Plan to address problem: DM management per primary attending. (5) Anemia in chronic illness Current Visit: No Status: Chronic Plan to address problem: XI therapy with HD sessions. Subjective Date of service: 11/16/19 Principal diagnosis: ESRD, foot ulcer Interval history: s/p R BKA POD 1. C/o pain in the RLE. Tolerated HD well prior to the surgery. Objective - Vital Signs Vital signs: Vital Signs - 12hr 11/15/19 11/15/19 11/16/19 22:26 22:57 01:01 Temperature 98.5 F Pulse Rate 92 H Respiratory 17 22 16 Rate Blood Pressure 128/66 O2 Sat by Pulse 94 Oximetry 11/16/19 11/16/19 11/16/19 04:17 05:40 06:10 Temperature 98.8 F Pulse Rate 89 Respiratory 16 17 16 Rate Blood Pressure 130/74 O2 Sat by Pulse 97 Oximetry - General Appearance General appearance: well-developed, appears stated age EENT: ATNC, PERRL Neck: no JVD, no thyromegaly Respiratory: Present: Clear to Ascultation Cardiology: regular, S1S2 Gastrointestinal: normal Integumentary: warm and dry Neurologic: no focal deficit Musculoskeletal: deferred Psychiatric: mood/affect appropriate, cooperative - Lab 11/16/19 05:11 11/15/19 04:52 Most recent lab results Calcium 8.6 mg/dL (8.4-10.2) 11/15/19 04:52 Magnesium 2.20 mg/dL (1.7-2.3) 11/08/19 06:09 - Allied health notes Allied health notes reviewed: nursing Medications & Allergies - Medications Allergies/Adverse Reactions: Allergies amlodipine Allergy (Verified 09/26/19 16:04) Itching losartan Allergy (Verified 09/26/19 16:04) Itching sulfamethoxazole [From Bactrim] Allergy (Verified 09/26/19 16:04) Rash trimethoprim [From Bactrim] Allergy (Verified 09/26/19 16:04) Rash morphine Adverse Reaction (Verified 09/26/19 16:04) Vomiting Home Medications: Home Medications Medication Instructions Recorded Confirmed Last Taken Type Epoetin Jacoby 10,000 Unit [Procrit] 5,000 unit IV FRANCOIS PRN vial 07/13/19 11/07/19 Unknown Rx Gabapentin 100 mg PO BID #60 capsule 07/13/19 11/07/19 Unknown Rx Insulin Glargine [Lantus VIAL] 15 units SUB-Q QHS 30 Days units 07/13/19 11/07/19 Unknown Rx Lispro Insulin [HumaLOG] See Protocol SUB-Q ACHS 30 Days 07/13/19 11/07/19 Unknown Rx units Metoprolol [Lopressor TAB] 100 mg PO BID #60 tablet 07/13/19 11/07/19 Unknown Rx NIFEdipine XL [Procardia Xl] 60 mg PO QDAY #30 tablet 07/13/19 11/07/19 Unknown Rx Torsemide [Demadex] 60 mg PO DAILY 30 Days tablet 07/13/19 11/07/19 Unknown Rx Zolpidem [Ambien] 5 mg PO QHS PRN #15 tablet 07/13/19 11/07/19 Unknown Rx cloNIDine [Catapres] 0.1 mg PO Q12H PRN #60 tablet 07/13/19 11/07/19 Unknown Rx hydrALAZINE [Apresoline TAB] 100 mg PO Q8HR #90 tab 07/13/19 11/07/19 Unknown Rx Sodium Hypochlorite [Dakin's Half 1 applic TP BID #1 bottle 09/21/19 11/07/19 Unknown Rx Strength] Active Medications: Generic Name Dose Route Start Last Admin Trade Name Freq PRN Reason Stop Dose Admin Acetaminophen 650 mg 11/10/19 19:22 11/10/19 20:13 Tylenol PO 650 mg Q6H PRN Administration Fever >101 Alprazolam 0.25 mg 11/14/19 17:43 11/16/19 01:42 Xanax PO 0.25 mg Q8H PRN Administration Anxiety Dextrose 50 ml 11/15/19 08:37 D50w (25gm) Syringe IV Q30MIN PRN Hypoglycemia Protocol Epoetin Jacoby 10,000 unit 11/13/19 08:42 11/15/19 12:18 Procrit IV 10,000 unit FRANCOIS PRN Administration Dialysis Folic Acid 1 mg 11/08/19 10:00 11/16/19 10:10 Folvite PO 1 mg QDAY FATMATA Administration Gabapentin 300 mg 11/10/19 20:00 11/16/19 08:22 Gabapentin PO 300 mg TID FATMATA Administration Hydrocodone Bit/Homatropine Methylb 10 ml 11/09/19 13:18 11/13/19 06:18 Hydromet PO 10 ml Q6H PRN Administration Cough Hydromorphone HCl 1 mg 11/09/19 09:04 11/16/19 05:40 Dilaudid IV 1 mg Q4H PRN Administration Pain , Severe (7-10) Hydroxyzine HCl 10 mg 11/07/19 23:51 11/08/19 00:15 Atarax PO 10 mg Q6H PRN Administration Itching Sodium Chloride 100 mls @ 999 mls/hr 11/07/19 17:05 Nacl 0.9% IV FRANCOIS PRN Hypotension Cefepime HCl 1 gm in 100 mls @ 200 mls/hr 11/07/19 22:00 11/16/19 05:40 Cefepime/Ns 1 Gm/100 Ml IV 100 mls/hr Q24H FATMATA Administration Vancomycin HCl 1 gm in 250 mls @ 167.007 mls/hr 11/10/19 18:00 11/15/19 21:49 Vancomycin/Ns 1 Gm/250 Ml IV 167.007 mls/hr [id number]@1800 FATMATA Administration Sodium Chloride 500 mls @ 0 mls/hr 11/15/19 16:07 Nacl 0.9% 500 Ml IV ONCE [facility] As Directed Insulin Glargine 15 units 11/07/19 22:00 11/16/19 01:37 Lantus SUB-Q Not Given QHS [facility] Insulin Human Lispro 0 unit 11/07/19 16:30 11/16/19 08:24 Humalog SUB-Q Not Given ACHS [facility] Protocol Metoclopramide HCl 5 mg 11/07/19 16:30 11/16/19 08:23 Reglan PO Not Given ACHS [facility] Morphine Sulfate 2 mg 11/15/19 16:43 11/16/19 01:01 Morphine IV 2 mg Q4H PRN Administration Pain, Moderate (4-6) Oxycodone/Acetaminophen 1 tab 11/08/19 22:31 Percocet 5/325 PO Q6H PRN Pain, Moderate (4-6) Sevelamer Carbonate 1,600 mg 11/09/19 07:30 11/16/19 08:22 Renvela PO 1,600 mg AC FATMATA Administration Sodium Chloride 10 ml 11/15/19 17:00 Sodium Chloride Flush Syringe 10 Ml IV 11/16/19 16:59 PRN NR Sodium Hypochlorite 1 applic 11/09/19 10:00 11/16/19 06:53 Dakin's Full Strength TP Not Given Q12H [facility]
[2019-11-17] MEDS: INSULIN GLARGINE 100 UNITS/ML SUB-Q SCH ×2 (00:03→22:38)
[2019-11-17] MEDS: INSULIN LISPRO 100 UNIT/ML SUB-Q SCH ×5 (00:03→22:37)
[2019-11-17] MEDS: HYDROmorphone 1 MG/1 ML INJ IV PRN ×2 (03:23→08:09)
[2019-11-17] MEDS: METOCLOPRAMIDE 10 MG TAB PO SCH ×4 (08:09→21:09)
[2019-11-17] MEDS: SEVELAMER CARBONATE 800 MG TAB PO SCH ×3 (08:09→17:01)
[2019-11-17] MEDS: GABAPENTIN 300 MG CAP PO SCH ×3 (08:09→21:15)
[2019-11-17 08:11] LABS: Red Blood Count 3.56 M/mm3 (3.65-5.03)
[2019-11-17 08:12] LABS: Basophils # (Auto) 0.1 K/mm3 (0.0-0.1); Basophils % (Auto) 0.7 % (0.0-1.8); Eosinophils # (Auto) 0.4 K/mm3 (0.0-0.4); Eosinophils % (Auto) 2.7 % (0.0-4.3); Hematocrit 26.7 % (30.3-42.9); Hemoglobin 8.8 gm/dl (10.1-14.3); Lymphocytes # (Auto) 1.8 K/mm3 (1.2-5.4); Lymphocytes % (Auto) 11.8 % (13.4-35.0); Mean Corpuscular HGB Conc 33 % (30-34); Mean Corpuscular Volume 75 fl (79-97); Monocytes # (Auto) 1.2 K/mm3 (0.0-0.8); Monocytes % (Auto) 8.1 % (0.0-7.3); Platelet Count 323 K/mm3 (140-440); Red Cell Distribution Width 19.4 % (13.2-15.2)
[2019-11-17] MEDS: SODIUM HYPOCHLORITE, DAKIN'S FULL STRENGTH (0.5%) 473 ML TOPICAL SOLN TP SCH ×2 (09:57→22:05)
[2019-11-17] MEDS: HYDROcodone/HOMATROPINE 5-1.5MG /5 ML ORAL LIQD UNIT DOSE PO PRN (10:12)
--- NOTE | 2019-11-17 10:33 | Progress Note ---
Assessment and Plan - Patient Problems (1) Foot abscess, right Current Visit: Yes Status: Acute Plan to address problem: Continue current antibiotic regimen, and please ensure that antibiotics are dosed appropriately for her diminished renal function. S/P debridement. s/p right BKA POD2. (2) ESRD (end stage renal disease) Current Visit: No Status: Chronic Plan to address problem: Continue on TTS HD schedule. (3) Hypertensive chronic kidney disease with stage 5 chronic kidney disease or end stage renal disease Current Visit: No Status: Chronic Plan to address problem: Monitor blood pressures with current regimen. (4) Type 2 diabetes mellitus with diabetic chronic kidney disease Current Visit: No Status: Chronic Qualifiers: Chronic kidney disease stage: on chronic dialysis Plan to address problem: DM management per primary attending. (5) Anemia in chronic illness Current Visit: No Status: Chronic Plan to address problem: XI therapy with HD sessions. Subjective Date of service: 11/17/19 Principal diagnosis: ESRD, foot ulcer Interval history: Patient seen on hemodialysis. Resting at this time. No acute complaints per staff. Objective - Vital Signs Vital signs: Vital Signs - 12hr 11/16/19 11/16/19 11/17/19 22:41 23:29 03:23 Temperature 98.1 F Pulse Rate 87 Respiratory 18 16 19 Rate Blood Pressure 105/66 O2 Sat by Pulse 93 Oximetry - General Appearance General appearance: well-nourished, appears stated age EENT: ATNC, PERRL Neck: no JVD, no thyromegaly Respiratory: Present: Clear to Ascultation, Normal Exam Cardiology: regular, normal heart rate Gastrointestinal: normal, normoactive bowel sounds Integumentary: no rash Neurologic: no focal deficit Musculoskeletal: deferred Psychiatric: cooperative - Lab 11/17/19 07:19 11/15/19 04:52 Most recent lab results Calcium 8.6 mg/dL (8.4-10.2) 11/15/19 04:52 Magnesium 2.20 mg/dL (1.7-2.3) 11/08/19 06:09 - Allied health notes Allied health notes reviewed: nursing Medications & Allergies - Medications Allergies/Adverse Reactions: Allergies amlodipine Allergy (Verified 09/26/19 16:04) Itching losartan Allergy (Verified 09/26/19 16:04) Itching sulfamethoxazole [From Bactrim] Allergy (Verified 09/26/19 16:04) Rash trimethoprim [From Bactrim] Allergy (Verified 09/26/19 16:04) Rash morphine Adverse Reaction (Verified 09/26/19 16:04) Vomiting Home Medications: Home Medications Medication Instructions Recorded Confirmed Last Taken Type Epoetin Jacoby 10,000 Unit [Procrit] 5,000 unit IV FRANCOIS PRN vial 07/13/19 11/07/19 Unknown Rx Gabapentin 100 mg PO BID #60 capsule 07/13/19 11/07/19 Unknown Rx Insulin Glargine [Lantus VIAL] 15 units SUB-Q QHS 30 Days units 07/13/19 11/07/19 Unknown Rx Lispro Insulin [HumaLOG] See Protocol SUB-Q ACHS 30 Days 07/13/19 11/07/19 Unknown Rx units Metoprolol [Lopressor TAB] 100 mg PO BID #60 tablet 07/13/19 11/07/19 Unknown Rx NIFEdipine XL [Procardia Xl] 60 mg PO QDAY #30 tablet 07/13/19 11/07/19 Unknown Rx Torsemide [Demadex] 60 mg PO DAILY 30 Days tablet 07/13/19 11/07/19 Unknown Rx Zolpidem [Ambien] 5 mg PO QHS PRN #15 tablet 07/13/19 11/07/19 Unknown Rx cloNIDine [Catapres] 0.1 mg PO Q12H PRN #60 tablet 07/13/19 11/07/19 Unknown Rx hydrALAZINE [Apresoline TAB] 100 mg PO Q8HR #90 tab 07/13/19 11/07/19 Unknown Rx Sodium Hypochlorite [Dakin's Half 1 applic TP BID #1 bottle 09/21/19 11/07/19 Unknown Rx Strength] Active Medications: Generic Name Dose Route Start Last Admin Trade Name Freq PRN Reason Stop Dose Admin Acetaminophen 650 mg 11/10/19 19:22 11/10/19 20:13 Tylenol PO 650 mg Q6H PRN Administration Fever >101 Alprazolam 0.25 mg 11/14/19 17:43 11/16/19 01:42 Xanax PO 0.25 mg Q8H PRN Administration Anxiety Dextrose 50 ml 11/15/19 08:37 11/17/19 07:58 D50w (25gm) Syringe IV 20 ml Q30MIN PRN Administration Hypoglycemia Protocol Epoetin Jacoby 10,000 unit 11/13/19 08:42 11/15/19 12:18 Procrit IV 10,000 unit FRANCOIS PRN Administration Dialysis Folic Acid 1 mg 11/08/19 10:00 11/16/19 10:10 Folvite PO 1 mg QDAY FATMATA Administration Gabapentin 300 mg 11/10/19 20:00 11/17/19 08:09 Gabapentin PO 300 mg TID FATMATA Administration Hydrocodone Bit/Homatropine Methylb 10 ml 11/09/19 13:18 11/13/19 06:18 Hydromet PO 10 ml Q6H PRN Administration Cough Hydromorphone HCl 1 mg 11/09/19 09:04 11/17/19 08:09 Dilaudid IV 1 mg Q4H PRN Administration Pain , Severe (7-10) Hydroxyzine HCl 10 mg 11/07/19 23:51 11/08/19 00:15 Atarax PO 10 mg Q6H PRN Administration Itching Sodium Chloride 100 mls @ 999 mls/hr 11/07/19 17:05 Nacl 0.9% IV FRANCOIS PRN Hypotension Cefepime HCl 1 gm in 100 mls @ 200 mls/hr 11/07/19 22:00 11/16/19 22:36 Cefepime/Ns 1 Gm/100 Ml IV 100 mls/hr Q24H FATMATA Administration Vancomycin HCl 1 gm in 250 mls @ 167.007 mls/hr 11/10/19 18:00 11/15/19 21:49 Vancomycin/Ns 1 Gm/250 Ml IV 167.007 mls/hr [id number]@1800 FATMATA Administration Sodium Chloride 500 mls @ 0 mls/hr 11/15/19 16:07 Nacl 0.9% 500 Ml IV ONCE FATMATA As Directed Insulin Glargine 15 units 11/07/19 22:00 11/17/19 00:03 Lantus SUB-Q 15 units QHS FATM[facility] Administration Insulin Human Lispro 0 unit 11/07/19 16:30 11/17/19 07:49 Humalog SUB-Q Not Given ACHS [facility] Protocol Metoclopramide HCl 5 mg 11/07/19 16:30 11/17/19 08:09 Reglan PO 5 mg ACHS [facility] Administration Morphine Sulfate 2 mg 11/15/19 16:43 11/16/19 01:01 Morphine IV 2 mg Q4H PRN Administration Pain, Moderate (4-6) Oxycodone/Acetaminophen 1 tab 11/08/19 22:31 11/16/19 15:52 Percocet 5/325 PO 1 tab Q6H PRN Administration Pain, Moderate (4-6) Sevelamer Carbonate 1,600 mg 11/09/19 07:30 11/17/19 08:09 Renvela PO 1,600 mg AC FATMATA Administration Sodium Hypochlorite 1 applic 11/09/19 10:00 11/17/19 09:57 Dakin's Full Strength TP Not Given Q12H FATM[facility]
[2019-11-17 10:52] LABS: Calcium 8.7 mg/dL (8.4-10.2)
[2019-11-17] MEDS ORDERED: SODIUM CHLORIDE*PRIMING MACHINE ONLY FOR DIALYSIS MC ONE (11:51)
[2019-11-17] MEDS: EPOETIN ALFA 10,000 UNIT/1 ML INJ IV PRN (13:53)
[2019-11-17] MEDS: FOLIC ACID 1 MG TAB PO SCH (15:51)
[2019-11-17] MEDS: MORPHINE 2 MG/1 ML INJ IV PRN ×2 (17:03→21:08)
[2019-11-17] MEDS: VANCOMYCIN/NS 1 GM/250 ML 1 GM/250 ML BAG IV SCH (17:03)
--- NOTE | 2019-11-17 19:49 | Progress Note ---
Assessment and Plan Assessment and plan: --Status post right below-knee amputation Continue postop care, Pain management, wound care Physical therapy occupational therapy Rehabilitation --Abscesses right cheryl/leg wound; sent on admission s/p surgical debridement s/p right BKA 11/15/2019 --Sepsis secondary to right foot abscess; Status post right BKA. On antibiotics ID following --Peripheral neuropathy; continue gabapentin --End-stage renal disease; on hemodialysis Nephrology following HD per schedule --Hypertension; Moderate control'resume multiple home antihypertensives When necessary medications --Type 2 diabetes mellitus; Accu-Chek sliding scale coverage ADA diet --DVT prophylaxis; heparin during this--Full CODE STATUS, Monitor closely and adjust management as needed Plan of care reviewed with the patient and has not's Disposition; physical therapy occupational therapy Rehabilitation DC planning per case management History Interval history: Patient seen and examined. C/O some pain at the surg site Vital signs reviewed Hospitalist Physical - Constitutional Vitals: Temp Pulse Resp BP Pulse Ox 98.6 F 86 18 101/45 93 11/17/19 15:50 11/17/19 15:50 11/17/19 15:49 11/17/19 15:49 11/16/19 23:29 General appearance: Present: mild distress, well-nourished - EENT Eyes: Present: PERRL, EOM intact - Neck Neck: Present: supple, normal ROM - Respiratory Respiratory effort: normal Respiratory: bilateral: diminished, negative: rales, rhonchi, wheezing - Cardiovascular Rhythm: regular Heart Sounds: Present: S1 & S2 - Extremities Extremities: abnormal (s/p Rt BKA,dressing in place/ old Lt BKA) - Abdominal General gastrointestinal: soft, non-tender, non-distended, normal bowel sounds - Integumentary Integumentary: Present: clear, warm - Psychiatric Psychiatric: appropriate mood/affect, cooperative - Neurologic Neurologic: CNII-XII intact, moves all extremities Results - Labs CBC & Chem 7: 11/17/19 07:19 11/17/19 07:19 Labs: Laboratory Last Values WBC 15.2 K/mm3 (4.5-11.0) H 11/17/19 07:19 RBC 3.56 M/mm3 (3.65-5.03) L 11/17/19 07:19 Hgb 8.8 gm/dl (10.1-14.3) L 11/17/19 07:19 Hct 26.7 % (30.3-42.9) L 11/17/19 07:19 MCV 75 fl (79-97) L 11/17/19 07:19 MCH 25 pg (28-32) L 11/17/19 07:19 MCHC 33 % (30-34) 11/17/19 07:19 RDW 19.4 % (13.2-15.2) H 11/17/19 07:19 Plt Count 323 K/mm3 (140-440) 11/17/19 07:19 Lymph % (Auto) 11.8 % (13.4-35.0) L 11/17/19 07:19 [place] % (Auto) 8.1 % (0.0-7.3) H 11/17/19 07:19 Eos % (Auto) 2.7 % (0.0-4.3) 11/17/19 07:19 Baso % (Auto) 0.7 % (0.0-1.8) 11/17/19 07:19 Lymph # 1.8 K/mm3 (1.2-5.4) 11/17/19 07:19 [place] # 1.2 K/mm3 (0.0-0.8) H 11/17/19 07:19 Eos # 0.4 K/mm3 (0.0-0.4) 11/17/19 07:19 Baso # 0.1 K/mm3 (0.0-0.1) 11/17/19 07:19 Add Manual Diff Complete 11/14/19 06:05 Total Counted 100 11/14/19 06:05 Seg Neutrophils % 76.7 % (40.0-70.0) H 11/17/19 07:19 Seg Neuts % (Manual) 84.0 % (40.0-70.0) H 11/14/19 06:05 Band Neutrophils % 0 % 11/14/19 06:05 Lymphocytes % (Manual) 9.0 % (13.4-35.0) L 11/14/19 06:05 Reactive Lymphs % (Man) 0 % 11/14/19 06:05 Monocytes % (Manual) 4.0 % (0.0-7.3) 11/14/19 06:05 Eosinophils % (Manual) 3.0 % (0.0-4.3) 11/14/19 06:05 Basophils % (Manual) 0 % (0.0-1.8) 11/14/19 06:05 Metamyelocytes % 0 % 11/14/19 06:05 Myelocytes % 0 % 11/14/19 06:05 Promyelocytes % 0 % 11/14/19 06:05 Blast Cells % 0 % 11/14/19 06:05 Nucleated RBC % Not Reportable 11/14/19 06:05 Seg Neutrophils # 11.7 K/mm3 (1.8-7.7) H 11/17/19 07:19 Seg Neutrophils # Man 11.3 K/mm3 (1.8-7.7) H 11/14/19 06:05 Band Neutrophils # 0.0 K/mm3 11/14/19 06:05 Lymphocytes # (Manual) 1.2 K/mm3 (1.2-5.4) 11/14/19 06:05 Abs React Lymphs (Man) 0.0 K/mm3 11/14/19 06:05 Monocytes # (Manual) 0.5 K/mm3 (0.0-0.8) 11/14/19 06:05 Eosinophils # (Manual) 0.4 K/mm3 (0.0-0.4) 11/14/19 06:05 Basophils # (Manual) 0.0 K/mm3 (0.0-0.1) 11/14/19 06:05 Metamyelocytes # 0.0 K/mm3 11/14/19 06:05 Myelocytes # 0.0 K/mm3 11/14/19 06:05 Promyelocytes # 0.0 K/mm3 11/14/19 06:05 Blast Cells # 0.0 K/mm3 11/14/19 06:05 WBC Morphology Not Reportable 11/14/19 06:05 Hypersegmented Neuts Not Reportable 11/14/19 06:05 Hyposegmented Neuts Not Reportable 11/14/19 06:05 Hypogranular Neuts Not Reportable 11/14/19 06:05 Smudge Cells Not Reportable 11/14/19 06:05 Toxic Granulation Not Reportable 11/14/19 06:05 Toxic Vacuolation Not Reportable 11/14/19 06:05 Dohle Bodies Not Reportable 11/14/19 06:05 Pelger-Huet Anomaly Not Reportable 11/14/19 06:05 Mary Lou Rods Not Reportable 11/14/19 06:05 Platelet Estimate Consistent w auto 11/14/19 06:05 Clumped Platelets Not Reportable 11/14/19 06:05 Plt Clumps, EDTA Not Reportable 11/14/19 06:05 Large Platelets Not Reportable 11/14/19 06:05 Giant Platelets Not Reportable 11/14/19 06:05 Platelet Satelliting Not Reportable 11/14/19 06:05 Plt Morphology Comment Not Reportable 11/14/19 06:05 RBC Morphology Not Reportable 11/14/19 06:05 Dimorphic RBCs Not Reportable 11/14/19 06:05 Polychromasia Not Reportable 11/14/19 06:05 Hypochromasia 1+ 11/14/19 06:05 Poikilocytosis 1+ 11/14/19 06:05 Anisocytosis 1+ 11/14/19 06:05 Microcytosis Not Reportable 11/14/19 06:05 Macrocytosis Not Reportable 11/14/19 06:05 Spherocytes Not Reportable 11/14/19 06:05 Pappenheimer Bodies Not Reportable 11/14/19 06:05 Sickle Cells Not Reportable 11/14/19 06:05 Target Cells 2+ 11/14/19 06:05 Tear Drop Cells Not Reportable 11/14/19 06:05 Ovalocytes Few 11/14/19 06:05 Helmet Cells Not Reportable 11/14/19 06:05 [place] Bodies Not Reportable 11/14/19 06:05 [place] Rings Not Reportable 11/14/19 06:05 [place] Cells Not Reportable 11/14/19 06:05 Bite Cells Not Reportable 11/14/19 06:05 Crenated Cell Not Reportable 11/14/19 06:05 Elliptocytes Not Reportable 11/14/19 06:05 Acanthocytes (Spur) Not Reportable 11/14/19 06:05 Rouleaux Not Reportable 11/14/19 06:05 Hemoglobin C Crystals Not Reportable 11/14/19 06:05 Schistocytes Not Reportable 11/14/19 06:05 Malaria parasites Not Reportable 11/14/19 06:05 Sigifredo Bodies Not Reportable 11/14/19 06:05 Hem Pathologist Commnt No 11/14/19 06:05 Sodium 133 mmol/L (137-145) L 11/17/19 07:19 Potassium 4.9 mmol/L (3.6-5.0) 11/17/19 07:19 Chloride 93.7 mmol/L (98-107) L 11/17/19 07:19 Carbon Dioxide 24 mmol/L (22-30) 11/17/19 07:19 Anion Gap 20 mmol/L 11/17/19 07:19 BUN 25 mg/dL (7-17) H 11/17/19 07:19 Creatinine 4.5 mg/dL (0.7-1.2) H 11/17/19 07:19 Estimated GFR 12 ml/min 11/17/19 07:19 BUN/Creatinine Ratio 6 % 11/17/19 07:19 Glucose 64 mg/dL (65-100) L 11/17/19 07:19 POC Glucose 112 (70-105) H 11/17/19 17:06 Calcium 8.7 mg/dL (8.4-10.2) 11/17/19 07:19 Magnesium 2.20 mg/dL (1.7-2.3) 11/08/19 06:09 Total Bilirubin 0.70 mg/dL (0.1-1.2) 11/13/19 08:46 Direct Bilirubin 0.5 mg/dL (0-0.2) H 11/08/19 06:09 Indirect Bilirubin 0.2 mg/dL 11/08/19 06:09 AST 14 units/L (5-40) 11/13/19 08:46 ALT < 5 units/L (7-56) L 11/13/19 08:46 Alkaline Phosphatase 779 units/L (35-129) H 11/13/19 08:46 Total Protein 7.7 g/dL (6.3-8.2) 11/13/19 08:46 Albumin 2.6 g/dL (3.9-5) L 11/13/19 08:46 Albumin/Globulin Ratio 0.5 % 11/13/19 08:46 Random Vancomycin 14.3 ug/mL (0-40.0) 11/13/19 08:46 Hepatitis A IgM Ab Non-reactive (NonReactive) 11/07/19 20:19 Hep Bs Antigen Non-reactive (Negative) 11/07/19 20:19 Hep B Core IgM Ab Non-reactive (NonReactive) 11/07/19 20:19 Hepatitis C Antibody Non-reactive (NonReactive) 11/07/19 20:19 Influenza A (Rapid) Negative (Negative) 11/11/19 Unknown Influenza B (Rapid) Negative (Negative) 11/11/19 Unknown Blood Type O POSITIVE 11/14/19 14:32 Antibody Screen Negative 11/14/19 14:32 Crossmatch See Detail 11/14/19 14:32 Active Medications - Current Medications Current Medications: Generic Name Dose Route Start Last Admin Trade Name Freq PRN Reason Stop Dose Admin Acetaminophen 650 mg 11/10/19 19:22 11/10/19 20:13 Tylenol PO 650 mg Q6H PRN Administration Fever >101 Alprazolam 0.25 mg 11/14/19 17:43 11/16/19 01:42 Xanax PO 0.25 mg Q8H PRN Administration Anxiety Dextrose 50 ml 11/15/19 08:37 11/17/19 07:58 D50w (25gm) Syringe IV 20 ml Q30MIN PRN Administration Hypoglycemia Protocol Epoetin Jacoby 10,000 unit 11/13/19 08:42 11/17/19 13:53 Procrit IV 10,000 unit FRANCOIS PRN Administration Dialysis Folic Acid 1 mg 11/08/19 10:00 11/17/19 15:51 Folvite PO 1 mg QDAY FATMATA Administration Gabapentin 300 mg 11/10/19 20:00 11/17/19 15:51 Gabapentin PO 300 mg TID FATMATA Administration Hydrocodone Bit/Homatropine Methylb 10 ml 11/09/19 13:18 11/17/19 10:12 Hydromet PO 10 ml Q6H PRN Administration Cough Hydromorphone HCl 1 mg 11/09/19 09:04 11/17/19 08:09 Dilaudid IV 1 mg Q4H PRN Administration Pain , Severe (7-10) Hydroxyzine HCl 10 mg 11/07/19 23:51 11/08/19 00:15 Atarax PO 10 mg Q6H PRN Administration Itching Sodium Chloride 100 mls @ 999 mls/hr 11/07/19 17:05 Nacl 0.9% IV FRANCOIS PRN Hypotension Cefepime HCl 1 gm in 100 mls @ 200 mls/hr 11/07/19 22:00 11/16/19 22:36 Cefepime/Ns 1 Gm/100 Ml IV 100 mls/hr Q24H FATMATA Administration Vancomycin HCl 1 gm in 250 mls @ 167.007 mls/hr 11/10/19 18:00 11/17/19 17:03 Vancomycin/Ns 1 Gm/250 Ml IV 167.007 mls/hr TuThSa@1800 FATMATA Administration Sodium Chloride 500 mls @ 0 mls/hr 11/15/19 16:07 Nacl 0.9% 500 Ml IV ONCE FATMATA As Directed Insulin Glargine 15 units 11/07/19 22:00 11/17/19 00:03 Lantus SUB-Q 15 units QHS [facility] Administration Insulin Human Lispro 0 unit 11/07/19 16:30 11/17/19 16:28 Humalog SUB-Q Not Given [facility] Protocol Metoclopramide HCl 5 mg 11/07/19 16:30 11/17/19 17:00 Reglan PO 5 mg ACHS [facility] Administration Morphine Sulfate 2 mg 11/15/19 16:43 11/17/19 17:03 Morphine IV 2 mg Q4H PRN Administration Pain, Moderate (4-6) Oxycodone/Acetaminophen 1 tab 11/08/19 22:31 11/16/19 15:52 Percocet 5/325 PO 1 tab Q6H PRN Administration Pain, Moderate (4-6) Sevelamer Carbonate 1,600 mg 11/09/19 07:30 11/17/19 17:01 Renvela PO 1,600 mg AC FATMATA Administration Sodium Hypochlorite 1 applic 11/09/19 10:00 11/17/19 09:57 Dakin's Full Strength TP Not Given Q12H [facility] Nutrition/Malnutrition Assess - Dietary Evaluation Nutrition/Malnutrition Findings: Nutrition Notes Start: 11/14/19 11:29 Freq: Status: Active Protocol: Document 11/16/19 11:10 BEKA (Rec: 11/16/19 11:15 BEKA [id number]) Co-Sign 11/16/19 11:10 LP Nutrition Notes Initial or Follow up Reassessment Current Diagnosis CKD (stage V CKD),Diabetes, Hypertension Other Pertinent Diagnosis on HD, left and right BKA Current Diet Consistent CHO diet Labs/Tests Na 132 BUN 28 Cr 4.6 Pertinent Medications Reviewed Height 5 ft 7 in Weight 73.6 kg [place] Body Weight (kg) 61.36 BMI 25.4 Weight change and time frame Wt change noted due to right BKA Subjective/Other Information F/U for PO intakes and ONS needs. Pt stated her appetite has been okay mainly due to not liking the food. Pt ate a few bites of breakfast today. Pt preferences were noted. Offered pt Sajan to help promote wound healing due to right BKA. Percent of energy/protein needs met: 0%/0% Burn Absent Trauma Absent GI Symptoms None Minimum of two criteria No physical signs of malnutrition #1 Nutrition Diagnosis Increased nutrient needs ( specify in comment below) Comments: Protein Diagnosis Progress(for reassessment Continues documentation) Is patient on ventilator? No Is Patient Ambulatory and/or Out of Bed No REE-([facility]-confined to bed) [phone] Calculation Used for Recommendations [facility] Additional Notes Protein: 92-110g (1.25-1.5g/kg ) Fluid: 1 ml/kcal Nutrition Intervention Change Diet Order: Continue current Goal #1 Meet a least 75% of energy and protein needs via PO intakes. Goal #2 Wound healing Anticipated Discharge Needs: Renal diet Follow-Up By: 11/20/19 Additional Comments F/U for PO and ONS tolerance
[2019-11-17] MEDS ORDERED: ZOLPIDEM 5 MG TAB PO PRN (19:52)
[2019-11-17] MEDS: CEFEPIME/NS 1 GM/100 ML 1 GM/100 ML BAG IV SCH (22:04)
[2019-11-18] MEDS: BENZONATATE 100 MG CAP PO SCH ×3 (05:04→21:00)
[2019-11-18] MEDS: MORPHINE 2 MG/1 ML INJ IV PRN ×4 (05:04→20:49)
[2019-11-18] MEDS: METOCLOPRAMIDE 10 MG TAB PO SCH ×4 (08:30→21:00)
[2019-11-18] MEDS: SEVELAMER CARBONATE 800 MG TAB PO SCH ×3 (08:30→17:58)
[2019-11-18] MEDS: GABAPENTIN 300 MG CAP PO SCH ×3 (08:31→21:00)
[2019-11-18] MEDS: INSULIN LISPRO 100 UNIT/ML SUB-Q SCH ×5 (08:32→21:21)
[2019-11-18] MEDS: SODIUM HYPOCHLORITE, DAKIN'S FULL STRENGTH (0.5%) 473 ML TOPICAL SOLN TP SCH ×2 (09:36→21:04)
[2019-11-18] MEDS: FOLIC ACID 1 MG TAB PO SCH (09:37)
[2019-11-18] MEDS ORDERED: MAGNESIUM HYDROXIDE (MOM) ORAL LIQD UDC PO ONE (11:01)
[2019-11-18] MEDS ORDERED: MAGNESIUM HYDROXIDE (MOM) ORAL LIQD UDC PO PRN (11:01)
[2019-11-18] MEDS ORDERED: FUROSEMIDE 40 MG/4 ML INJ IV ONE (11:03)
--- NOTE | 2019-11-18 11:10 | Progress Note ---
Assessment and Plan Assessment and plan: --Cough/acute bronchitis Cough medicine, supportive care --Status post right below-knee amputation Continue postop care, Pain management, wound care Physical therapy occupational therapy Rehabilitation --Abscesses right cheryl/leg wound; sent on admission s/p surgical debridement s/p right BKA 11/15/2019 --Sepsis secondary to right foot abscess; Status post right BKA. On antibiotics ID following --Peripheral neuropathy; continue gabapentin --End-stage renal disease; on hemodialysis Nephrology following HD per schedule --Hypertension; Moderate control'resume multiple home antihypertensives When necessary medications --Type 2 diabetes mellitus; Accu-Chek sliding scale coverage ADA diet --DVT prophylaxis; heparin during this--Full CODE STATUS, Monitor closely and adjust management as needed Plan of care reviewed with the patient and has not's Disposition; physical therapy occupational therapy Rehabilitation DC planning per case management History Interval history: Patient seen and examined medical records reviewed Patient complains of some cough Hospitalist Physical - Constitutional Vitals: Temp Pulse Resp BP Pulse Ox 97.7 F 84 20 119/64 99 11/18/19 04:46 11/18/19 04:46 11/18/19 04:46 11/18/19 04:46 11/18/19 04:46 General appearance: Present: mild distress, well-nourished - EENT Eyes: Present: PERRL, EOM intact - Neck Neck: Present: supple, normal ROM - Respiratory Respiratory effort: normal Respiratory: bilateral: diminished, negative: rales, rhonchi, wheezing - Cardiovascular Rhythm: regular Heart Sounds: Present: S1 & S2 - Extremities Extremities: abnormal (right BKA) Extremity abnormal: other (history of left BKA) - Abdominal General gastrointestinal: soft, non-tender, non-distended, normal bowel sounds - Integumentary Integumentary: Present: clear, warm - Psychiatric Psychiatric: appropriate mood/affect, cooperative - Neurologic Neurologic: moves all extremities Results - Labs CBC & Chem 7: 11/17/19 07:19 11/17/19 07:19 Labs: Laboratory Last Values WBC 15.2 K/mm3 (4.5-11.0) H 11/17/19 07:19 RBC 3.56 M/mm3 (3.65-5.03) L 11/17/19 07:19 Hgb 8.8 gm/dl (10.1-14.3) L 11/17/19 07:19 Hct 26.7 % (30.3-42.9) L 11/17/19 07:19 MCV 75 fl (79-97) L 11/17/19 07:19 MCH 25 pg (28-32) L 11/17/19 07:19 MCHC 33 % (30-34) 11/17/19 07:19 RDW 19.4 % (13.2-15.2) H 11/17/19 07:19 Plt Count 323 K/mm3 (140-440) 11/17/19 07:19 Lymph % (Auto) 11.8 % (13.4-35.0) L 11/17/19 07:19 [place] % (Auto) 8.1 % (0.0-7.3) H 11/17/19 07:19 Eos % (Auto) 2.7 % (0.0-4.3) 11/17/19 07:19 Baso % (Auto) 0.7 % (0.0-1.8) 11/17/19 07:19 Lymph # 1.8 K/mm3 (1.2-5.4) 11/17/19 07:19 [place] # 1.2 K/mm3 (0.0-0.8) H 11/17/19 07:19 Eos # 0.4 K/mm3 (0.0-0.4) 11/17/19 07:19 Baso # 0.1 K/mm3 (0.0-0.1) 11/17/19 07:19 Add Manual Diff Complete 11/14/19 06:05 Total Counted 100 11/14/19 06:05 Seg Neutrophils % 76.7 % (40.0-70.0) H 11/17/19 07:19 Seg Neuts % (Manual) 84.0 % (40.0-70.0) H 11/14/19 06:05 Band Neutrophils % 0 % 11/14/19 06:05 Lymphocytes % (Manual) 9.0 % (13.4-35.0) L 11/14/19 06:05 Reactive Lymphs % (Man) 0 % 11/14/19 06:05 Monocytes % (Manual) 4.0 % (0.0-7.3) 11/14/19 06:05 Eosinophils % (Manual) 3.0 % (0.0-4.3) 11/14/19 06:05 Basophils % (Manual) 0 % (0.0-1.8) 11/14/19 06:05 Metamyelocytes % 0 % 11/14/19 06:05 Myelocytes % 0 % 11/14/19 06:05 Promyelocytes % 0 % 11/14/19 06:05 Blast Cells % 0 % 11/14/19 06:05 Nucleated RBC % Not Reportable 11/14/19 06:05 Seg Neutrophils # 11.7 K/mm3 (1.8-7.7) H 11/17/19 07:19 Seg Neutrophils # Man 11.3 K/mm3 (1.8-7.7) H 11/14/19 06:05 Band Neutrophils # 0.0 K/mm3 11/14/19 06:05 Lymphocytes # (Manual) 1.2 K/mm3 (1.2-5.4) 11/14/19 06:05 Abs React Lymphs (Man) 0.0 K/mm3 11/14/19 06:05 Monocytes # (Manual) 0.5 K/mm3 (0.0-0.8) 11/14/19 06:05 Eosinophils # (Manual) 0.4 K/mm3 (0.0-0.4) 11/14/19 06:05 Basophils # (Manual) 0.0 K/mm3 (0.0-0.1) 11/14/19 06:05 Metamyelocytes # 0.0 K/mm3 11/14/19 06:05 Myelocytes # 0.0 K/mm3 11/14/19 06:05 Promyelocytes # 0.0 K/mm3 11/14/19 06:05 Blast Cells # 0.0 K/mm3 11/14/19 06:05 WBC Morphology Not Reportable 11/14/19 06:05 Hypersegmented Neuts Not Reportable 11/14/19 06:05 Hyposegmented Neuts Not Reportable 11/14/19 06:05 Hypogranular Neuts Not Reportable 11/14/19 06:05 Smudge Cells Not Reportable 11/14/19 06:05 Toxic Granulation Not Reportable 11/14/19 06:05 Toxic Vacuolation Not Reportable 11/14/19 06:05 Dohle Bodies Not Reportable 11/14/19 06:05 Pelger-Huet Anomaly Not Reportable 11/14/19 06:05 Mary Lou Rods Not Reportable 11/14/19 06:05 Platelet Estimate Consistent w auto 11/14/19 06:05 Clumped Platelets Not Reportable 11/14/19 06:05 Plt Clumps, EDTA Not Reportable 11/14/19 06:05 Large Platelets Not Reportable 11/14/19 06:05 Giant Platelets Not Reportable 11/14/19 06:05 Platelet Satelliting Not Reportable 11/14/19 06:05 Plt Morphology Comment Not Reportable 11/14/19 06:05 RBC Morphology Not Reportable 11/14/19 06:05 Dimorphic RBCs Not Reportable 11/14/19 06:05 Polychromasia Not Reportable 11/14/19 06:05 Hypochromasia 1+ 11/14/19 06:05 Poikilocytosis 1+ 11/14/19 06:05 Anisocytosis 1+ 11/14/19 06:05 Microcytosis Not Reportable 11/14/19 06:05 Macrocytosis Not Reportable 11/14/19 06:05 Spherocytes Not Reportable 11/14/19 06:05 Pappenheimer Bodies Not Reportable 11/14/19 06:05 Sickle Cells Not Reportable 11/14/19 06:05 Target Cells 2+ 11/14/19 06:05 Tear Drop Cells Not Reportable 11/14/19 06:05 Ovalocytes Few 11/14/19 06:05 Helmet Cells Not Reportable 11/14/19 06:05 [place] Bodies Not Reportable 11/14/19 06:05 [place] Rings Not Reportable 11/14/19 06:05 [place] Cells Not Reportable 11/14/19 06:05 Bite Cells Not Reportable 11/14/19 06:05 Crenated Cell Not Reportable 11/14/19 06:05 Elliptocytes Not Reportable 11/14/19 06:05 Acanthocytes (Spur) Not Reportable 11/14/19 06:05 Rouleaux Not Reportable 11/14/19 06:05 Hemoglobin C Crystals Not Reportable 11/14/19 06:05 Schistocytes Not Reportable 11/14/19 06:05 Malaria parasites Not Reportable 11/14/19 06:05 Sigifredo Bodies Not Reportable 11/14/19 06:05 Hem Pathologist Commnt No 11/14/19 06:05 Sodium 133 mmol/L (137-145) L 11/17/19 07:19 Potassium 4.9 mmol/L (3.6-5.0) 11/17/19 07:19 Chloride 93.7 mmol/L (98-107) L 11/17/19 07:19 Carbon Dioxide 24 mmol/L (22-30) 11/17/19 07:19 Anion Gap 20 mmol/L 11/17/19 07:19 BUN 25 mg/dL (7-17) H 11/17/19 07:19 Creatinine 4.5 mg/dL (0.7-1.2) H 11/17/19 07:19 Estimated GFR 12 ml/min 11/17/19 07:19 BUN/Creatinine Ratio 6 % 11/17/19 07:19 Glucose 64 mg/dL (65-100) L 11/17/19 07:19 POC Glucose 182 (70-105) H 11/18/19 08:22 Calcium 8.7 mg/dL (8.4-10.2) 11/17/19 07:19 Magnesium 2.20 mg/dL (1.7-2.3) 11/08/19 06:09 Total Bilirubin 0.70 mg/dL (0.1-1.2) 11/13/19 08:46 Direct Bilirubin 0.5 mg/dL (0-0.2) H 11/08/19 06:09 Indirect Bilirubin 0.2 mg/dL 11/08/19 06:09 AST 14 units/L (5-40) 11/13/19 08:46 ALT < 5 units/L (7-56) L 11/13/19 08:46 Alkaline Phosphatase 779 units/L (35-129) H 11/13/19 08:46 Total Protein 7.7 g/dL (6.3-8.2) 11/13/19 08:46 Albumin 2.6 g/dL (3.9-5) L 11/13/19 08:46 Albumin/Globulin Ratio 0.5 % 11/13/19 08:46 Random Vancomycin 14.3 ug/mL (0-40.0) 01/14/20 08:46 Hepatitis A IgM Ab Non-reactive (NonReactive) 11/07/19 20:19 Hep Bs Antigen Non-reactive (Negative) 11/07/19 20:19 Hep B Core IgM Ab Non-reactive (NonReactive) 11/07/19 20:19 Hepatitis C Antibody Non-reactive (NonReactive) 11/07/19 20:19 Influenza A (Rapid) Negative (Negative) 11/11/19 Unknown Influenza B (Rapid) Negative (Negative) 11/11/19 Unknown Blood Type O POSITIVE 11/14/19 14:32 Antibody Screen Negative 11/14/19 14:32 Crossmatch See Detail 11/14/19 14:32 Active Medications - Current Medications Current Medications: Generic Name Dose Route Start Last Admin Trade Name Freq PRN Reason Stop Dose Admin Acetaminophen 650 mg 11/10/19 19:22 11/10/19 20:13 Tylenol PO 650 mg Q6H PRN Administration Fever >101 Alprazolam 0.25 mg 11/14/19 17:43 11/16/19 01:42 Xanax PO 0.25 mg Q8H PRN Administration Anxiety Benzonatate 100 mg 11/18/19 06:00 11/18/19 05:04 Tessalon Perles PO 100 mg Q8HR FATMATA Administration Dextrose 50 ml 11/15/19 08:37 11/17/19 07:58 D50w (25gm) Syringe IV 20 ml Q30MIN PRN Administration Hypoglycemia Protocol Epoetin Jacoby 10,000 unit 11/13/19 08:42 11/17/19 13:53 Procrit IV 10,000 unit FRANCOIS PRN Administration Dialysis Folic Acid 1 mg 11/08/19 10:00 11/18/19 09:37 Folvite PO 1 mg QDAY FATMATA Administration Furosemide 40 mg 11/18/19 11:03 Lasix IV 11/18/19 11:04 ONCE ONE Gabapentin 300 mg 11/10/19 20:00 11/18/19 08:31 Gabapentin PO 300 mg TID FATMATA Administration Guaifenesin 10 ml 11/18/19 11:04 Guaifenesin Dm Syrup PO Q4H PRN Cough Hydroxyzine HCl 10 mg 11/07/19 23:51 11/08/19 00:15 Atarax PO 10 mg Q6H PRN Administration Itching Sodium Chloride 100 mls @ 999 mls/hr 11/07/19 17:05 Nacl 0.9% IV FRANCOIS PRN Hypotension Cefepime HCl 1 gm in 100 mls @ 200 mls/hr 11/07/19 22:00 11/17/19 22:04 Cefepime/Ns 1 Gm/100 Ml IV 100 mls/hr Q24H FATMATA Administration Vancomycin HCl 1 gm in 250 mls @ 167.007 mls/hr 11/10/19 18:00 11/17/19 17:03 Vancomycin/Ns 1 Gm/250 Ml IV 167.007 mls/hr TuThSa@1800 FATMATA Administration Sodium Chloride 500 mls @ 0 mls/hr 11/15/19 16:07 Nacl 0.9% 500 Ml IV ONCE FATMATA As Directed Insulin Glargine 15 units 11/07/19 22:00 11/17/19 22:38 Lantus SUB-Q Not Given QHS FATMATA Insulin Human Lispro 0 unit 11/07/19 16:30 11/18/19 08:34 Humalog SUB-Q 2 unit ACHS [facility] Administration Protocol Magnesium Hydroxide 30 ml 11/18/19 11:01 Milk Of Magnesia PO 11/18/19 11:02 ONCE ONE Magnesium Hydroxide 30 ml 11/18/19 11:01 Milk Of Magnesia PO QDAY PRN Constipation Metoclopramide HCl 5 mg 11/07/19 16:30 11/18/19 08:30 Reglan PO 5 mg ACHS FATMATA Administration Morphine Sulfate 2 mg 11/15/19 16:43 11/18/19 10:56 Morphine IV 2 mg Q4H PRN Administration Pain, Moderate (4-6) Oxycodone/Acetaminophen 1 tab 11/08/19 22:31 11/16/19 15:52 Percocet 5/325 PO 1 tab Q6H PRN Administration Pain, Moderate (4-6) Sevelamer Carbonate 1,600 mg 11/09/19 07:30 11/18/19 08:30 Renvela PO 1,600 mg AC FATMATA Administration Sodium Hypochlorite 1 applic 11/09/19 10:00 11/18/19 09:36 Dakin's Full Strength TP Not Given Q12H FATMATA Zolpidem Tartrate 5 mg 11/17/19 19:52 Ambien PO QHS PRN Sleep Nutrition/Malnutrition Assess - Dietary Evaluation Nutrition/Malnutrition Findings: Nutrition Notes Start: 11/14/19 11:29 Freq: Status: Active Protocol: Document 11/16/19 11:10 BEKA (Rec: 11/16/19 11:15 BEKA [id number]) Co-Sign 11/16/19 11:10 LP Nutrition Notes Initial or Follow up Reassessment Current Diagnosis CKD (stage V CKD),Diabetes, Hypertension Other Pertinent Diagnosis on HD, left and right BKA Current Diet Consistent CHO diet Labs/Tests Na 132 BUN 28 Cr 4.6 Pertinent Medications Reviewed Height 5 ft 7 in Weight 73.6 kg Nogal Body Weight (kg) 61.36 BMI 25.4 Weight change and time frame Wt change noted due to right BKA Subjective/Other Information F/U for PO intakes and ONS needs. Pt stated her appetite has been okay mainly due to not liking the food. Pt ate a few bites of breakfast today. Pt preferences were noted. Offered pt Sajan to help promote wound healing due to right BKA. Percent of energy/protein needs met: 0%/0% Burn Absent Trauma Absent GI Symptoms None Minimum of two criteria No physical signs of malnutrition #1 Nutrition Diagnosis Increased nutrient needs ( specify in comment below) Comments: Protein Diagnosis Progress(for reassessment Continues documentation) Is patient on ventilator? No Is Patient Ambulatory and/or Out of Bed No REE-([facility]-confined to bed) [phone] Calculation Used for Recommendations [facility] Additional Notes Protein: 92-110g (1.25-1.5g/kg ) Fluid: 1 ml/kcal Nutrition Intervention Change Diet Order: Continue current Goal #1 Meet a least 75% of energy and protein needs via PO intakes. Goal #2 Wound healing Anticipated Discharge Needs: Renal diet Follow-Up By: 11/20/19 Additional Comments F/U for PO and ONS tolerance
--- NOTE | 2019-11-18 12:58 | Progress Note ---
Assessment and Plan - Patient Problems (1) Foot abscess, right Current Visit: Yes Status: Acute Plan to address problem: Continue current antibiotic regimen, and please ensure that antibiotics are dosed appropriately for her diminished renal function. S/P debridement. s/p right BKA POD3. (2) ESRD (end stage renal disease) Current Visit: No Status: Chronic Plan to address problem: Continue on TTS HD schedule. (3) Hypertensive chronic kidney disease with stage 5 chronic kidney disease or end stage renal disease Current Visit: No Status: Chronic Plan to address problem: Monitor blood pressures with current regimen. (4) Type 2 diabetes mellitus with diabetic chronic kidney disease Current Visit: No Status: Chronic Qualifiers: Chronic kidney disease stage: on chronic dialysis Plan to address problem: DM management per primary attending. (5) Anemia in chronic illness Current Visit: No Status: Chronic Plan to address problem: XI therapy with HD sessions. Subjective Date of service: 11/18/19 Principal diagnosis: ESRD, foot ulcer Interval history: No acute issues overnight. She tolerated her hemodialysis session well yesterday without any acute events. Next section due for Tuesday. Objective - Vital Signs Vital signs: Vital Signs - 12hr 11/18/19 04:46 Temperature 97.7 F Pulse Rate 84 Respiratory 20 Rate Blood Pressure 119/64 O2 Sat by Pulse 99 Oximetry - General Appearance General appearance: well-developed, well-nourished, appears stated age EENT: ATNC, PERRL Neck: no JVD, no thyromegaly Respiratory: Present: Clear to Ascultation, Normal Exam Cardiology: regular, S1S2 Gastrointestinal: normal, normoactive bowel sounds Integumentary: warm and dry Neurologic: no focal deficit, alert and oriented x3 Psychiatric: mood/affect appropriate, cooperative - Lab 11/17/19 07:19 11/17/19 07:19 Most recent lab results Calcium 8.7 mg/dL (8.4-10.2) 11/17/19 07:19 Magnesium 2.20 mg/dL (1.7-2.3) 11/08/19 06:09 - Allied health notes Allied health notes reviewed: nursing Medications & Allergies - Medications Allergies/Adverse Reactions: Allergies amlodipine Allergy (Verified 09/26/19 16:04) Itching losartan Allergy (Verified 09/26/19 16:04) Itching sulfamethoxazole [From Bactrim] Allergy (Verified 09/26/19 16:04) Rash trimethoprim [From Bactrim] Allergy (Verified 09/26/19 16:04) Rash morphine Adverse Reaction (Verified 09/26/19 16:04) Vomiting Home Medications: Home Medications Medication Instructions Recorded Confirmed Last Taken Type Epoetin Jacoby 10,000 Unit [Procrit] 5,000 unit IV FRANCOIS PRN vial 07/13/19 11/07/19 Unknown Rx Gabapentin 100 mg PO BID #60 capsule 07/13/19 11/07/19 Unknown Rx Insulin Glargine [Lantus VIAL] 15 units SUB-Q QHS 30 Days units 07/13/19 11/07/19 Unknown Rx Lispro Insulin [HumaLOG] See Protocol SUB-Q ACHS 30 Days 07/13/19 11/07/19 Unknown Rx units Metoprolol [Lopressor TAB] 100 mg PO BID #60 tablet 07/13/19 11/07/19 Unknown Rx NIFEdipine XL [Procardia Xl] 60 mg PO QDAY #30 tablet 07/13/19 11/07/19 Unknown Rx Torsemide [Demadex] 60 mg PO DAILY 30 Days tablet 07/13/19 11/07/19 Unknown Rx Zolpidem [Ambien] 5 mg PO QHS PRN #15 tablet 07/13/19 11/07/19 Unknown Rx cloNIDine [Catapres] 0.1 mg PO Q12H PRN #60 tablet 07/13/19 11/07/19 Unknown Rx hydrALAZINE [Apresoline TAB] 100 mg PO Q8HR #90 tab 07/13/19 11/07/19 Unknown Rx Sodium Hypochlorite [Dakin's Half 1 applic TP BID #1 bottle 09/21/19 11/07/19 Unknown Rx Strength] Active Medications: Generic Name Dose Route Start Last Admin Trade Name Freq PRN Reason Stop Dose Admin Acetaminophen 650 mg 11/10/19 19:22 11/10/19 20:13 Tylenol PO 650 mg Q6H PRN Administration Fever >101 Alprazolam 0.25 mg 11/14/19 17:43 11/16/19 01:42 Xanax PO 0.25 mg Q8H PRN Administration Anxiety Benzonatate 100 mg 11/18/19 06:00 11/18/19 05:04 Tessalon Perles PO 100 mg Q8HR FATMATA Administration Dextrose 50 ml 11/15/19 08:37 11/17/19 07:58 D50w (25gm) Syringe IV 20 ml Q30MIN PRN Administration Hypoglycemia Protocol Epoetin Jacoby 10,000 unit 11/13/19 08:42 11/17/19 13:53 Procrit IV 10,000 unit FRANCOIS PRN Administration Dialysis Folic Acid 1 mg 11/08/19 10:00 11/18/19 09:37 Folvite PO 1 mg QDAY FATMATA Administration Gabapentin 300 mg 11/10/19 20:00 11/18/19 08:31 Gabapentin PO 300 mg TID FATMATA Administration Guaifenesin 10 ml 11/18/19 11:04 Guaifenesin Dm Syrup PO Q4H PRN Cough Hydroxyzine HCl 10 mg 11/07/19 23:51 11/08/19 00:15 Atarax PO 10 mg Q6H PRN Administration Itching Sodium Chloride 100 mls @ 999 mls/hr 11/07/19 17:05 Nacl 0.9% IV FRANCOIS PRN Hypotension Cefepime HCl 1 gm in 100 mls @ 200 mls/hr 11/07/19 22:00 11/17/19 22:04 Cefepime/Ns 1 Gm/100 Ml IV 100 mls/hr Q24H FATMATA Administration Vancomycin HCl 1 gm in 250 mls @ 167.007 mls/hr 11/10/19 18:00 11/17/19 17:03 Vancomycin/Ns 1 Gm/250 Ml IV 167.007 mls/hr [email or web address] FATMATA Administration Sodium Chloride 500 mls @ 0 mls/hr 11/15/19 16:07 Nacl 0.9% 500 Ml IV ONCE FATMATA As Directed Insulin Glargine 15 units 11/07/19 22:00 11/17/19 22:38 Lantus SUB-Q Not Given QHS ON LICENSE OF [facility] Insulin Human Lispro 0 unit 11/07/19 16:30 11/18/19 11:44 Humalog SUB-Q Not Given ACHS ON LICENSE OF [facility] Protocol Magnesium Hydroxide 30 ml 11/18/19 11:01 Milk Of Magnesia PO QDAY PRN Constipation Metoclopramide HCl 5 mg 11/07/19 16:30 11/18/19 11:49 Reglan PO 5 mg ACHS ON LICENSE OF [facility] Administration Morphine Sulfate 2 mg 11/15/19 16:43 11/18/19 10:56 Morphine IV 2 mg Q4H PRN Administration Pain, Moderate (4-6) Oxycodone/Acetaminophen 1 tab 11/08/19 22:31 11/16/19 15:52 Percocet 5/325 PO 1 tab Q6H PRN Administration Pain, Moderate (4-6) Sevelamer Carbonate 1,600 mg 11/09/19 07:30 11/18/19 11:50 Renvela PO 1,600 mg AC FATMATA Administration Sodium Hypochlorite 1 applic 11/09/19 10:00 11/18/19 09:36 Dakin's Full Strength TP Not Given Q12H FATMATA Zolpidem Tartrate 5 mg 11/17/19 19:52 Ambien PO QHS PRN Sleep
[2019-11-18] MEDS: CEFEPIME/NS 1 GM/100 ML 1 GM/100 ML BAG IV SCH (21:00)
[2019-11-18] MEDS: INSULIN GLARGINE 100 UNITS/ML SUB-Q SCH (21:07)
[2019-11-18] MEDS: ALPRAZolam 0.25 MG TAB PO PRN (23:05)
[2019-11-18] MEDS: guaiFENesin DM 200/20 MG ORAL LIQD 10 ML PO PRN (23:05)
[2019-11-19] MEDS: MORPHINE 2 MG/1 ML INJ IV PRN ×3 (02:50→14:14)
[2019-11-19] MEDS: BENZONATATE 100 MG CAP PO SCH ×3 (05:31→21:35)
[2019-11-19] MEDS: INSULIN LISPRO 100 UNIT/ML SUB-Q SCH ×3 (08:17→17:28)
[2019-11-19] MEDS: METOCLOPRAMIDE 10 MG TAB PO SCH ×4 (08:30→21:32)
[2019-11-19] MEDS: GABAPENTIN 300 MG CAP PO SCH ×3 (08:31→19:18)
[2019-11-19] MEDS: SEVELAMER CARBONATE 800 MG TAB PO SCH ×3 (08:31→19:15)
[2019-11-19] MEDS ORDERED: FUROSEMIDE 40 MG/4 ML INJ IV SCH (10:00)
[2019-11-19] MEDS: FOLIC ACID 1 MG TAB PO SCH (10:52)
[2019-11-19] MEDS: SODIUM HYPOCHLORITE, DAKIN'S FULL STRENGTH (0.5%) 473 ML TOPICAL SOLN TP SCH ×2 (10:53→21:31)
--- NOTE | 2019-11-19 13:56 | Progress Note ---
Assessment and Plan - Patient Problems (1) Foot abscess, right Current Visit: Yes Status: Acute Plan to address problem: Continue current antibiotic regimen, and please ensure that antibiotics are dosed appropriately for her diminished renal function. S/P debridement. s/p right BKA POD 4. (2) ESRD (end stage renal disease) Current Visit: No Status: Chronic Plan to address problem: Continue on TTS HD schedule. (3) Hypertensive chronic kidney disease with stage 5 chronic kidney disease or end stage renal disease Current Visit: No Status: Chronic Plan to address problem: Monitor blood pressures with current regimen. (4) Type 2 diabetes mellitus with diabetic chronic kidney disease Current Visit: No Status: Chronic Qualifiers: Chronic kidney disease stage: on chronic dialysis Plan to address problem: DM management per primary attending. (5) Anemia in chronic illness Current Visit: No Status: Chronic Plan to address problem: XI therapy with HD sessions. Subjective Date of service: 11/19/19 Principal diagnosis: ESRD, foot ulcer Interval history: No acute changes or issues overnight. Plan for hemodialysis tomorrow. She is working physical therapy earlier today. Objective - Vital Signs Vital signs: Vital Signs - 12hr 11/19/19 11/19/19 11/19/19 02:50 03:20 04:17 Temperature 98.7 F Pulse Rate 88 Respiratory 18 18 16 Rate Blood Pressure 117/66 O2 Sat by Pulse 99 Oximetry 11/19/19 11:24 Temperature 98.6 F Pulse Rate 86 Respiratory 19 Rate Blood Pressure 157/86 O2 Sat by Pulse 100 Oximetry - General Appearance General appearance: well-developed, well-nourished, appears stated age EENT: ATNC, PERRL Neck: no JVD, no thyromegaly Respiratory: Present: Clear to Ascultation Cardiology: regular, S1S2 Gastrointestinal: normal Integumentary: no rash Neurologic: no focal deficit Psychiatric: mood/affect appropriate, cooperative - Lab 11/17/19 07:19 11/17/19 07:19 Most recent lab results Calcium 8.7 mg/dL (8.4-10.2) 11/17/19 07:19 Magnesium 2.20 mg/dL (1.7-2.3) 11/08/19 06:09 Medications & Allergies - Medications Allergies/Adverse Reactions: Allergies amlodipine Allergy (Verified 09/26/19 16:04) Itching losartan Allergy (Verified 09/26/19 16:04) Itching sulfamethoxazole [From Bactrim] Allergy (Verified 09/26/19 16:04) Rash trimethoprim [From Bactrim] Allergy (Verified 09/26/19 16:04) Rash morphine Adverse Reaction (Verified 09/26/19 16:04) Vomiting Home Medications: Home Medications Medication Instructions Recorded Confirmed Last Taken Type Epoetin Jacoby 10,000 Unit [Procrit] 5,000 unit IV FRANCOIS PRN vial 07/13/19 11/07/19 Unknown Rx Gabapentin 100 mg PO BID #60 capsule 07/13/19 11/07/19 Unknown Rx Insulin Glargine [Lantus VIAL] 15 units SUB-Q QHS 30 Days units 07/13/1906/19 Unknown Rx Lispro Insulin [HumaLOG] See Protocol SUB-Q ACHS 30 Days 07/13/19 11/07/19 Unknown Rx units Metoprolol [Lopressor TAB] 100 mg PO BID #60 tablet 07/13/19 11/07/19 Unknown Rx NIFEdipine XL [Procardia Xl] 60 mg PO QDAY #30 tablet 07/13/19 11/07/19 Unknown Rx Torsemide [Demadex] 60 mg PO DAILY 30 Days tablet 07/13/19 11/07/19 Unknown Rx Zolpidem [Ambien] 5 mg PO QHS PRN #15 tablet 07/13/19 11/07/19 Unknown Rx cloNIDine [Catapres] 0.1 mg PO Q12H PRN #60 tablet 07/13/19 11/07/19 Unknown Rx hydrALAZINE [Apresoline TAB] 100 mg PO Q8HR #90 tab 07/13/19 11/07/19 Unknown Rx Sodium Hypochlorite [Dakin's Half 1 applic TP BID #1 bottle 09/21/19 11/07/19 Unknown Rx Strength] Active Medications: Generic Name Dose Route Start Last Admin Trade Name Freq PRN Reason Stop Dose Admin Acetaminophen 650 mg 11/10/19 19:22 11/10/19 20:13 Tylenol PO 650 mg Q6H PRN Administration Fever >101 Alprazolam 0.25 mg 11/14/19 17:43 11/18/19 23:05 Xanax PO 0.25 mg Q8H PRN Administration Anxiety Benzonatate 100 mg 11/18/19 06:00 11/19/19 05:31 Tessalon Perles PO 100 mg Q8HR FATMATA Administration Dextrose 50 ml 11/15/19 08:37 11/17/19 07:58 D50w (25gm) Syringe IV 20 ml Q30MIN PRN Administration Hypoglycemia Protocol Epoetin Jacoby 10,000 unit 11/13/19 08:42 11/17/19 13:53 Procrit IV 10,000 unit FRANCOIS PRN Administration Dialysis Folic Acid 1 mg 11/08/19 10:00 11/19/19 10:52 Folvite PO 1 mg QDAY FATMATA Administration Gabapentin 300 mg 11/10/19 20:00 11/19/19 08:31 Gabapentin PO 300 mg TID FATMATA Administration Guaifenesin 10 ml 11/18/19 11:04 11/18/19 23:05 Guaifenesin Dm Syrup PO 10 ml Q4H PRN Administration Cough Hydroxyzine HCl 10 mg 11/07/19 23:51 11/08/19 00:15 Atarax PO 10 mg Q6H PRN Administration Itching Sodium Chloride 100 mls @ 999 mls/hr 11/07/19 17:05 Nacl 0.9% IV FRANCOIS PRN Hypotension Cefepime HCl 1 gm in 100 mls @ 200 mls/hr 11/07/19 22:00 11/18/19 21:00 Cefepime/Ns 1 Gm/100 Ml IV 100 mls/hr Q24H FATMATA Administration Vancomycin HCl 1 gm in 250 mls @ 167.007 mls/hr 11/10/19 18:00 11/17/19 17:03 Vancomycin/Ns 1 Gm/250 Ml IV 167.007 mls/hr [email or web address] FATMATA Administration Sodium Chloride 500 mls @ 0 mls/hr 11/15/19 16:07 Nacl 0.9% 500 Ml IV ONCE FATMATA As Directed Insulin Glargine 15 units 11/07/19 22:00 11/18/19 21:07 Lantus SUB-Q 15 units QHS FATMATA Administration Insulin Human Lispro 0 unit 11/07/19 16:30 11/19/19 08:17 Humalog SUB-Q Not Given ACHS FATMATA Protocol Magnesium Hydroxide 30 ml 11/18/19 11:01 Milk Of Magnesia PO QDAY PRN Constipation Metoclopramide HCl 5 mg 11/07/19 16:30 11/19/19 08:30 Reglan PO 5 mg ACHS FATMATA Administration Morphine Sulfate 2 mg 11/15/19 16:43 11/19/19 08:42 Morphine IV 2 mg Q4H PRN Administration Pain, Moderate (4-6) Oxycodone/Acetaminophen 1 tab 11/08/19 22:31 11/16/19 15:52 Percocet 5/325 PO 1 tab Q6H PRN Administration Pain, Moderate (4-6) Sevelamer Carbonate 1,600 mg 11/09/19 07:30 11/19/19 08:31 Renvela PO 1,600 mg AC FATMATA Administration Sodium Hypochlorite 1 applic 11/09/19 10:00 11/19/19 10:53 Dakin's Full Strength TP Not Given Q12H FATMATA Zolpidem Tartrate 5 mg 11/17/19 19:52 Ambien PO QHS PRN Sleep
--- NOTE | 2019-11-19 17:12 | Progress Note ---
Assessment and Plan s/p right BKA doing ok continue observation Subjective Date of service: 11/19/19 Principal diagnosis: ESRD, foot ulcer Interval history: c/o incisional pain,denies phantom pain Objective Vital signs: Vital Signs - 12hr 11/19/19 11:24 Temperature 98.6 F Pulse Rate 86 Respiratory 19 Rate Blood Pressure 157/86 O2 Sat by Pulse 100 Oximetry Incision: healing, clean and dry - Labs CBC & BMP: 11/17/19 07:19 11/17/19 07:19 Labs: Abnormal lab results 11/18/19 11/19/19 Range/Units 21:17 04:29 POC Glucose 215 H 61 L (70-105)
[2019-11-19] MEDS: HYDROmorphone 2 MG TAB PO PRN (19:15)
[2019-11-19] MEDS: CEFEPIME/NS 1 GM/100 ML 1 GM/100 ML BAG IV SCH (21:35)
--- NOTE | 2019-11-20 01:49 | Progress Note ---
Assessment and Plan Assessment and plan: --Status post right below-knee amputation Continue postop care, Pain management, wound care Physical therapy occupational therapy Rehabilitation --Cough/acute bronchitis Cough medicine, supportive care --Abscesses right cheryl/leg wound; sent on admission s/p surgical debridement s/p right BKA 11/15/2019 --Sepsis secondary to right foot abscess; Status post right BKA. On antibiotics ID following --Peripheral neuropathy; continue gabapentin --End-stage renal disease; on hemodialysis Nephrology following HD per schedule --Hypertension; Moderate control'resume multiple home antihypertensives When necessary medications --Type 2 diabetes mellitus; Accu-Chek sliding scale coverage ADA diet --DVT prophylaxis; heparin during this--Full CODE STATUS, Monitor closely and adjust management as needed Plan of care reviewed with the patient and has not's Disposition; physical therapy occupational therapy Rehabilitation DC planning per case management History Interval history: Patient seen and examined.patient's cahrt reviewed C/O some pain at the surg site Vital signs reviewed Hospitalist Physical - Constitutional Vitals: Temp Pulse Resp BP Pulse Ox 98.8 F 84 18 159/83 99 11/19/19 20:38 11/19/19 20:38 11/19/19 20:38 11/19/19 20:38 11/19/19 20:38 General appearance: Present: mild distress, well-nourished - EENT Eyes: Present: PERRL, EOM intact - Neck Neck: Present: supple, normal ROM - Respiratory Respiratory effort: normal Respiratory: bilateral: diminished, negative: rales, rhonchi, wheezing - Cardiovascular Rhythm: regular Heart Sounds: Present: S1 & S2 - Extremities Extremities: no ischemia, abnormal (Sedrick BKA) - Abdominal General gastrointestinal: soft, non-tender, non-distended, normal bowel sounds - Integumentary Integumentary: Present: clear, warm - Psychiatric Psychiatric: appropriate mood/affect, cooperative - Neurologic Neurologic: moves all extremities Results - Labs CBC & Chem 7: 11/17/19 07:19 11/17/19 07:19 Labs: Laboratory Last Values WBC 15.2 K/mm3 (4.5-11.0) H 11/17/19 07:19 RBC 3.56 M/mm3 (3.65-5.03) L 11/17/19 07:19 Hgb 8.8 gm/dl (10.1-14.3) L 11/17/19 07:19 Hct 26.7 % (30.3-42.9) L 11/17/19 07:19 MCV 75 fl (79-97) L 11/17/19 07:19 MCH 25 pg (28-32) L 11/17/19 07:19 MCHC 33 % (30-34) 11/17/19 07:19 RDW 19.4 % (13.2-15.2) H 11/17/19 07:19 Plt Count 323 K/mm3 (140-440) 11/17/19 07:19 Lymph % (Auto) 11.8 % (13.4-35.0) L 11/17/19 07:19 Wake % (Auto) 8.1 % (0.0-7.3) H 11/17/19 07:19 Eos % (Auto) 2.7 % (0.0-4.3) 11/17/19 07:19 Baso % (Auto) 0.7 % (0.0-1.8) 11/17/19 07:19 Lymph # 1.8 K/mm3 (1.2-5.4) 11/17/19 07:19 Wake # 1.2 K/mm3 (0.0-0.8) H 11/17/19 07:19 Eos # 0.4 K/mm3 (0.0-0.4) 11/17/19 07:19 Baso # 0.1 K/mm3 (0.0-0.1) 11/17/19 07:19 Add Manual Diff Complete 11/14/19 06:05 Total Counted 100 11/14/19 06:05 Seg Neutrophils % 76.7 % (40.0-70.0) H 11/17/19 07:19 Seg Neuts % (Manual) 84.0 % (40.0-70.0) H 11/14/19 06:05 Band Neutrophils % 0 % 11/14/19 06:05 Lymphocytes % (Manual) 9.0 % (13.4-35.0) L 11/14/19 06:05 Reactive Lymphs % (Man) 0 % 11/14/19 06:05 Monocytes % (Manual) 4.0 % (0.0-7.3) 11/14/19 06:05 Eosinophils % (Manual) 3.0 % (0.0-4.3) 11/14/19 06:05 Basophils % (Manual) 0 % (0.0-1.8) 11/14/19 06:05 Metamyelocytes % 0 % 11/14/19 06:05 Myelocytes % 0 % 11/14/19 06:05 Promyelocytes % 0 % 11/14/19 06:05 Blast Cells % 0 % 11/14/19 06:05 Nucleated RBC % Not Reportable 11/14/19 06:05 Seg Neutrophils # 11.7 K/mm3 (1.8-7.7) H 11/17/19 07:19 Seg Neutrophils # Man 11.3 K/mm3 (1.8-7.7) H 11/14/19 06:05 Band Neutrophils # 0.0 K/mm3 11/14/19 06:05 Lymphocytes # (Manual) 1.2 K/mm3 (1.2-5.4) 11/14/19 06:05 Abs React Lymphs (Man) 0.0 K/mm3 11/14/19 06:05 Monocytes # (Manual) 0.5 K/mm3 (0.0-0.8) 11/14/19 06:05 Eosinophils # (Manual) 0.4 K/mm3 (0.0-0.4) 11/14/19 06:05 Basophils # (Manual) 0.0 K/mm3 (0.0-0.1) 11/14/19 06:05 Metamyelocytes # 0.0 K/mm3 11/14/19 06:05 Myelocytes # 0.0 K/mm3 11/14/19 06:05 Promyelocytes # 0.0 K/mm3 11/14/19 06:05 Blast Cells # 0.0 K/mm3 11/14/19 06:05 WBC Morphology Not Reportable 11/14/19 06:05 Hypersegmented Neuts Not Reportable 11/14/19 06:05 Hyposegmented Neuts Not Reportable 11/14/19 06:05 Hypogranular Neuts Not Reportable 11/14/19 06:05 Smudge Cells Not Reportable 11/14/19 06:05 Toxic Granulation Not Reportable 11/14/19 06:05 Toxic Vacuolation Not Reportable 11/14/19 06:05 Dohle Bodies Not Reportable 11/14/19 06:05 Pelger-Huet Anomaly Not Reportable 11/14/19 06:05 Mary Lou Rods Not Reportable 11/14/19 06:05 Platelet Estimate Consistent w auto 11/14/19 06:05 Clumped Platelets Not Reportable 11/14/19 06:05 Plt Clumps, EDTA Not Reportable 11/14/19 06:05 Large Platelets Not Reportable 11/14/19 06:05 Giant Platelets Not Reportable 11/14/19 06:05 Platelet Satelliting Not Reportable 11/14/19 06:05 Plt Morphology Comment Not Reportable 11/14/19 06:05 RBC Morphology Not Reportable 11/14/19 06:05 Dimorphic RBCs Not Reportable 11/14/19 06:05 Polychromasia Not Reportable 11/14/19 06:05 Hypochromasia 1+ 11/14/19 06:05 Poikilocytosis 1+ 11/14/19 06:05 Anisocytosis 1+ 11/14/19 06:05 Microcytosis Not Reportable 11/14/19 06:05 Macrocytosis Not Reportable 11/14/19 06:05 Spherocytes Not Reportable 11/14/19 06:05 Pappenheimer Bodies Not Reportable 11/14/19 06:05 Sickle Cells Not Reportable 11/14/19 06:05 Target Cells 2+ 11/14/19 06:05 Tear Drop Cells Not Reportable 11/14/19 06:05 Ovalocytes Few 11/14/19 06:05 Helmet Cells Not Reportable 11/14/19 06:05 Nelson-Rutherford Bodies Not Reportable 11/14/19 06:05 [place] Rings Not Reportable 11/14/19 06:05 Natividad Cells Not Reportable 11/14/19 06:05 Bite Cells Not Reportable 11/14/19 06:05 Crenated Cell Not Reportable 11/14/19 06:05 Elliptocytes Not Reportable 11/14/19 06:05 Acanthocytes (Spur) Not Reportable 11/14/19 06:05 Rouleaux Not Reportable 11/14/19 06:05 Hemoglobin C Crystals Not Reportable 11/14/19 06:05 Schistocytes Not Reportable 11/14/19 06:05 Malaria parasites Not Reportable 11/14/19 06:05 Sigifredo Bodies Not Reportable 11/14/19 06:05 Hem Pathologist Commnt No 11/14/19 06:05 Sodium 133 mmol/L (137-145) L 11/17/19 07:19 Potassium 4.9 mmol/L (3.6-5.0) 11/17/19 07:19 Chloride 93.7 mmol/L (98-107) L 11/17/19 07:19 Carbon Dioxide 24 mmol/L (22-30) 11/17/19 07:19 Anion Gap 20 mmol/L 11/17/19 07:19 BUN 25 mg/dL (7-17) H 11/17/19 07:19 Creatinine 4.5 mg/dL (0.7-1.2) H 11/17/19 07:19 Estimated GFR 12 ml/min 11/17/19 07:19 BUN/Creatinine Ratio 6 % 11/17/19 07:19 Glucose 64 mg/dL (65-100) L 11/17/19 07:19 POC Glucose 183 (70-105) H 11/20/19 00:35 Calcium 8.7 mg/dL (8.4-10.2) 11/17/19 07:19 Magnesium 2.20 mg/dL (1.7-2.3) 11/08/19 06:09 Total Bilirubin 0.70 mg/dL (0.1-1.2) 11/13/19 08:46 Direct Bilirubin 0.5 mg/dL (0-0.2) H 11/08/19 06:09 Indirect Bilirubin 0.2 mg/dL 11/08/19 06:09 AST 14 units/L (5-40) 11/13/19 08:46 ALT < 5 units/L (7-56) L 11/13/19 08:46 Alkaline Phosphatase 779 units/L (35-129) H 11/13/19 08:46 Total Protein 7.7 g/dL (6.3-8.2) 11/13/19 08:46 Albumin 2.6 g/dL (3.9-5) L 11/13/19 08:46 Albumin/Globulin Ratio 0.5 % 11/13/19 08:46 Random Vancomycin 14.3 ug/mL (0-40.0) 11/13/19 08:46 Hepatitis A IgM Ab Non-reactive (NonReactive) 11/07/19 20:19 Hep Bs Antigen Non-reactive (Negative) 11/07/19 20:19 Hep B Core IgM Ab Non-reactive (NonReactive) 11/07/19 20:19 Hepatitis C Antibody Non-reactive (NonReactive) 11/07/19 20:19 Influenza A (Rapid) Negative (Negative) 11/11/19 Unknown Influenza B (Rapid) Negative (Negative) 11/11/19 Unknown Blood Type O POSITIVE 11/14/19 14:32 Antibody Screen Negative 11/14/19 14:32 Crossmatch See Detail 11/14/19 14:32 Active Medications - Current Medications Current Medications: Generic Name Dose Route Start Last Admin Trade Name Freq PRN Reason Stop Dose Admin Acetaminophen 650 mg 11/10/19 19:22 11/10/19 20:13 Tylenol PO 650 mg Q6H PRN Administration Fever >101 Alprazolam 0.25 mg 11/14/19 17:43 11/18/19 23:05 Xanax PO 0.25 mg Q8H PRN Administration Anxiety Benzonatate 100 mg 11/18/19 06:00 11/19/19 21:35 Tessalon Perles PO 100 mg Q8HR FATMATA Administration Dextrose 50 ml 11/15/19 08:37 11/17/19 07:58 D50w (25gm) Syringe IV 20 ml Q30MIN PRN Administration Hypoglycemia Protocol Epoetin Jacoby 10,000 unit 11/13/19 08:42 11/17/19 13:53 Procrit IV 10,000 unit FRANCOIS PRN Administration Dialysis Folic Acid 1 mg 11/08/19 10:00 11/19/19 10:52 Folvite PO 1 mg QDAY FATMATA Administration Gabapentin 300 mg 11/10/19 20:00 11/19/19 19:18 Gabapentin PO 300 mg TID FATMATA Administration Guaifenesin 10 ml 11/18/19 11:04 11/18/19 23:05 Guaifenesin Dm Syrup PO 10 ml Q4H PRN Administration Cough Hydromorphone HCl 2 mg 11/19/19 17:10 11/19/19 19:15 Dilaudid PO 2 mg Q6H PRN Administration Pain , Severe (7-10) Hydroxyzine HCl 10 mg 11/07/19 23:51 11/08/19 00:15 Atarax PO 10 mg Q6H PRN Administration Itching Sodium Chloride 100 mls @ 999 mls/hr 11/07/19 17:05 Nacl 0.9% IV FRANCOIS PRN Hypotension Cefepime HCl 1 gm in 100 mls @ 200 mls/hr 11/07/19 22:00 11/19/19 21:35 Cefepime/Ns 1 Gm/100 Ml IV 100 mls/hr Q24H FATMATA Administration Vancomycin HCl 1 gm in 250 mls @ 167.007 mls/hr 11/10/19 18:00 11/17/19 17:03 Vancomycin/Ns 1 Gm/250 Ml IV 167.007 mls/hr [id number]@1800 FATMATA Administration Sodium Chloride 500 mls @ 0 mls/hr 11/15/19 16:07 Nacl 0.9% 500 Ml IV ONCE FATMATA As Directed Insulin Glargine 15 units 11/07/19 22:00 11/18/19 21:07 Lantus SUB-Q 15 units QHS [facility] Administration Insulin Human Lispro 0 unit 11/07/19 16:30 11/19/19 17:28 Humalog SUB-Q Not Given [facility] Protocol Magnesium Hydroxide 30 ml 11/18/19 11:01 Milk Of Magnesia PO QDAY PRN Constipation Metoclopramide HCl 5 mg 11/07/19 16:30 11/19/19 21:32 Reglan PO Not Given [facility] Morphine Sulfate 2 mg 11/15/19 16:43 11/19/19 14:14 Morphine IV 2 mg Q4H PRN Administration Pain, Moderate (4-6) Oxycodone/Acetaminophen 1 tab 11/08/19 22:31 11/16/19 15:52 Percocet 5/325 PO 1 tab Q6H PRN Administration Pain, Moderate (4-6) Sevelamer Carbonate 1,600 mg 11/09/19 07:30 11/19/19 19:15 Renvela PO 1,600 mg AC FATMATA Administration Sodium Hypochlorite 1 applic 11/09/19 10:00 11/19/19 21:31 Dakin's Full Strength TP Not Given Q12H [facility] Zolpidem Tartrate 5 mg 11/17/19 19:52 Ambien PO QHS PRN Sleep Nutrition/Malnutrition Assess - Dietary Evaluation Nutrition/Malnutrition Findings: Nutrition Notes Start: 11/14/19 11:29 Freq: Status: Active Protocol: Document 11/16/19 11:10 BEKA (Rec: 11/16/19 11:15 BEKA [id number]) Co-Sign 11/16/19 11:10 LP Nutrition Notes Initial or Follow up Reassessment Current Diagnosis CKD (stage V CKD),Diabetes, Hypertension Other Pertinent Diagnosis on HD, left and right BKA Current Diet Consistent CHO diet Labs/Tests Na 132 BUN 28 Cr 4.6 Pertinent Medications Reviewed Height 5 ft 7 in Weight 73.6 kg [place] Body Weight (kg) 61.36 BMI 25.4 Weight change and time frame Wt change noted due to right BKA Subjective/Other Information F/U for PO intakes and ONS needs. Pt stated her appetite has been okay mainly due to not liking the food. Pt ate a few bites of breakfast today. Pt preferences were noted. Offered pt Sajan to help promote wound healing due to right BKA. Percent of energy/protein needs met: 0%/0% Burn Absent Trauma Absent GI Symptoms None Minimum of two criteria No physical signs of malnutrition #1 Nutrition Diagnosis Increased nutrient needs ( specify in comment below) Comments: Protein Diagnosis Progress(for reassessment Continues documentation) Is patient on ventilator? No Is Patient Ambulatory and/or Out of Bed No REE-([facility]-confined to bed) [phone] Calculation Used for Recommendations [facility] Additional Notes Protein: 92-110g (1.25-1.5g/kg ) Fluid: 1 ml/kcal Nutrition Intervention Change Diet Order: Continue current Goal #1 Meet a least 75% of energy and protein needs via PO intakes. Goal #2 Wound healing Anticipated Discharge Needs: Renal diet Follow-Up By: 11/20/19 Additional Comments F/U for PO and ONS tolerance
[2019-11-20] MEDS: HYDROmorphone 2 MG TAB PO PRN ×2 (02:01→10:45)
[2019-11-20] MEDS: INSULIN LISPRO 100 UNIT/ML SUB-Q SCH ×5 (02:07→22:44)
[2019-11-20] MEDS: INSULIN GLARGINE 100 UNITS/ML SUB-Q SCH ×2 (02:08→22:44)
[2019-11-20] MEDS: SEVELAMER CARBONATE 800 MG TAB PO SCH ×3 (07:30→17:53)
[2019-11-20] MEDS: METOCLOPRAMIDE 10 MG TAB PO SCH ×4 (09:11→22:44)
[2019-11-20] MEDS: MORPHINE 2 MG/1 ML INJ IV PRN ×2 (09:15→18:42)
[2019-11-20] MEDS: BENZONATATE 100 MG CAP PO SCH ×3 (09:18→22:43)
[2019-11-20] MEDS: GABAPENTIN 300 MG CAP PO SCH ×3 (09:18→22:43)
[2019-11-20] MEDS ORDERED: SODIUM CHLORIDE*PRIMING MACHINE ONLY FOR DIALYSIS MC ONE (11:17)
[2019-11-20] MEDS: EPOETIN ALFA 10,000 UNIT/1 ML INJ IV PRN (12:32)
[2019-11-20] MEDS: SODIUM HYPOCHLORITE, DAKIN'S FULL STRENGTH (0.5%) 473 ML TOPICAL SOLN TP SCH ×2 (12:39→22:45)
--- NOTE | 2019-11-20 15:08 | Progress Note ---
Assessment and Plan /Status post right below-knee amputation Continue postop care, Pain management, wound care Physical therapy occupational therapy consulted - need acute rehab /Cough/acute bronchitis Cough medicine, supportive care /Abscesses right cheryl/leg wound; sent on admission s/p surgical debridement s/p right BKA 11/15/2019 /Sepsis secondary to right foot abscess; Status post right BKA. On antibiotics ID following /-Peripheral neuropathy; continue gabapentin /End-stage renal disease; on hemodialysis Nephrology following HD per schedule /-Hypertension; Moderate control'resume multiple home antihypertensives When necessary medications /Type 2 diabetes mellitus; Accu-Chek sliding scale coverage ADA diet --DVT prophylaxis; heparin during this--Full CODE STATUS DC to acute rehab when clears by ortho Hospitalist Physical General appearance: Present: mild distress, well-nourished - EENT Eyes: Present: PERRL, EOM intact - Neck Neck: Present: supple, normal ROM - Respiratory Respiratory effort: normal Respiratory: bilateral: diminished, negative: rales, rhonchi, wheezing - Cardiovascular Rhythm: regular Heart Sounds: Present: S1 & S2 - Extremities Extremities: no ischemia, abnormal (Sedrick BKA), right stump with wound dressing - Abdominal General gastrointestinal: soft, non-tender, non-distended, normal bowel sounds - Integumentary Integumentary: Present: clear, warm - Psychiatric Psychiatric: appropriate mood/affect, cooperative - Neurologic Neurologic: moves all extremities Subjective Date of service: 11/20/19 Principal diagnosis: ESRD, foot ulcer Interval history: Patient seen and examined denies any acute issue continue to c/o right stump pain Objective - Constitutional Vitals: Vital Signs - 12hr 11/20/19 11/20/19 11/20/19 05:06 09:45 09:50 Temperature 98.6 F 98.2 F Pulse Rate 86 89 88 Respiratory 18 18 Rate Blood Pressure 165/86 181/99 181/102 O2 Sat by Pulse 98 Oximetry 11/20/19 11/20/19 11/20/19 10:00 10:15 10:30 Temperature Pulse Rate 84 83 85 Respiratory Rate Blood Pressure 170/92 145/80 148/83 O2 Sat by Pulse Oximetry 11/20/19 11/20/19 11/20/19 10:45 11:00 11:15 Temperature Pulse Rate 87 89 84 Respiratory Rate Blood Pressure 165/88 173/93 150/81 O2 Sat by Pulse Oximetry 11/20/19 11/20/19 11/20/19 11:30 11:45 12:00 Temperature Pulse Rate 87 87 86 Respiratory Rate Blood Pressure 145/81 160/84 149/75 O2 Sat by Pulse Oximetry - Labs CBC & Chem 7: 11/17/19 07:19 11/17/19 07:19 Labs: Abnormal lab results 11/19/19 11/20/19 11/20/19 Range/Units 16:59 00:35 06:13 POC Glucose 131 H 183 H 67 L (70-105) 11/20/19 Range/Units 08:16 POC Glucose 59 L (70-105)
[2019-11-20] MEDS ORDERED: fentaNYL 25 MCG/HR PATCH 72HR TD SCH (18:00)
[2019-11-20] MEDS: FOLIC ACID 1 MG TAB PO SCH (18:42)
--- NOTE | 2019-11-20 21:17 | Progress Note ---
Assessment and Plan - Patient Problems (1) Foot abscess, right Current Visit: Yes Status: Acute Plan to address problem: Status right below knee amputation. Continue antibiotics. Continue management per surgeon (2) End-stage renal disease on hemodialysis Current Visit: No Status: Chronic Plan to address problem: Hemodialysis on a Tuesday, and Tuesday schedule. (3) Hypertensive chronic kidney disease with stage 5 chronic kidney disease or end stage renal disease Current Visit: No Status: Chronic Plan to address problem: Follow-up blood pressure on current medications. (4) Type 2 diabetes mellitus with diabetic chronic kidney disease Current Visit: No Status: Chronic Qualifiers: Chronic kidney disease stage: on chronic dialysis Plan to address problem: Blood sugar management by primary attending. (5) Anemia in chronic kidney disease Current Visit: No Status: Acute Qualifiers: Chronic kidney disease stage: on chronic dialysis Qualified Code(s): N18.6 - End stage renal disease; D63.1 - Anemia in chronic kidney disease; Z99.2 - Dependence on renal dialysis Plan to address problem: Erythropoietin on dialysis Subjective Date of service: 11/20/19 Principal diagnosis: ESRD, foot ulcer Interval history: Patient seen lying in bed. No complaints at this time. Pain in foot is controlled with medication. No shortness of breath . Objective - Exam Narrative Exam: Middle-aged -[place] female lying in bed in no acute distress HEENT: NCAT, pink oral mucous membrane Neck: Supple, no venous distention CVS: S1S2 RRR with no murmur, rub or gallop Chest: Clear to auscultation Abdomen: Protuberant, soft, nontender, no organomegaly, bowel sounds are present Extremities: No edema, dressing right below knee amputation stump, left below knee amputation Neuro: Awake, alert no focal deficits - Vital Signs Vital signs: Vital Signs - 12hr 11/20/19 11/20/19 11/20/19 09:45 09:50 10:00 Temperature 98.2 F Pulse Rate 89 88 84 Respiratory 18 Rate Blood Pressure 181/99 181/102 170/92 O2 Sat by Pulse Oximetry 11/20/19 11/20/19 11/20/19 10:15 10:30 10:45 Temperature Pulse Rate 83 85 87 Respiratory Rate Blood Pressure 145/80 148/83 165/88 O2 Sat by Pulse Oximetry 11/20/19 11/20/19 11/20/19 11:00 11:15 11:30 Temperature Pulse Rate 89 84 87 Respiratory Rate Blood Pressure 173/93 150/81 145/81 O2 Sat by Pulse Oximetry 11/20/19 11/20/19 11/20/19 11:45 12:00 12:15 Temperature Pulse Rate 87 86 87 Respiratory Rate Blood Pressure 160/84 149/75 147/79 O2 Sat by Pulse Oximetry 11/20/19 11/20/19 11/20/19 12:30 12:45 13:00 Temperature Pulse Rate 88 81 82 Respiratory Rate Blood Pressure 146/69 122/60 121/62 O2 Sat by Pulse Oximetry 11/20/19 11/20/19 11/20/19 13:15 13:40 17:09 Temperature 98.8 F 99.0 F Pulse Rate 88 93 H 89 Respiratory 18 19 Rate Blood Pressure 123/66 137/69 147/81 O2 Sat by Pulse 99 Oximetry - Lab 11/17/19 07:19 11/17/19 07:19 Most recent lab results Calcium 8.7 mg/dL (8.4-10.2) 11/17/19 07:19 Magnesium 2.20 mg/dL (1.7-2.3) 11/08/19 06:09 Medications & Allergies - Medications Allergies/Adverse Reactions: Allergies amlodipine Allergy (Verified 09/26/19 16:04) Itching losartan Allergy (Verified 09/26/19 16:04) Itching sulfamethoxazole [From Bactrim] Allergy (Verified 09/26/19 16:04) Rash trimethoprim [From Bactrim] Allergy (Verified 09/26/19 16:04) Rash morphine Adverse Reaction (Verified 09/26/19 16:04) Vomiting Home Medications: Home Medications Medication Instructions Recorded Confirmed Last Taken Type Epoetin Jacoby 10,000 Unit [Procrit] 5,000 unit IV FRANCOIS PRN vial 07/13/19 11/07/19 Unknown Rx Gabapentin 100 mg PO BID #60 capsule 07/13/19 11/07/19 Unknown Rx Insulin Glargine [Lantus VIAL] 15 units SUB-Q QHS 30 Days units 07/13/19 11/07/19 Unknown Rx Lispro Insulin [HumaLOG] See Protocol SUB-Q ACHS 30 Days 07/13/19 11/07/19 Unknown Rx units Metoprolol [Lopressor TAB] 100 mg PO BID #60 tablet 07/13/19 11/07/19 Unknown Rx NIFEdipine XL [Procardia Xl] 60 mg PO QDAY #30 tablet 07/13/19 11/07/19 Unknown Rx Torsemide [Demadex] 60 mg PO DAILY 30 Days tablet 07/13/19 11/07/19 Unknown Rx Zolpidem [Ambien] 5 mg PO QHS PRN #15 tablet 07/13/19 11/07/19 Unknown Rx cloNIDine [Catapres] 0.1 mg PO Q12H PRN #60 tablet 07/13/19 11/07/19 Unknown Rx hydrALAZINE [Apresoline TAB] 100 mg PO Q8HR #90 tab 07/13/19 11/07/19 Unknown Rx Sodium Hypochlorite [Dakin's Half 1 applic TP BID #1 bottle 09/21/19 11/07/19 Unknown Rx Strength] Active Medications: Generic Name Dose Route Start Last Admin Trade Name Freq PRN Reason Stop Dose Admin Acetaminophen 650 mg 11/10/19 19:22 11/10/19 20:13 Tylenol PO 650 mg Q6H PRN Administration Fever >101 Alprazolam 0.25 mg 11/14/19 17:43 11/18/19 23:05 Xanax PO 0.25 mg Q8H PRN Administration Anxiety Benzonatate 100 mg 11/18/19 06:00 11/20/19 14:35 Tessalon Perles PO 100 mg Q8HR FATMATA Administration Dextrose 50 ml 11/15/19 08:37 11/17/19 07:58 D50w (25gm) Syringe IV 20 ml Q30MIN PRN Administration Hypoglycemia Protocol Epoetin Jacoby 10,000 unit 11/13/19 08:42 11/20/19 12:32 Procrit IV 10,000 unit FRANCOIS PRN Administration Dialysis Fentanyl 25 mcg 11/20/19 18:00 11/20/19 17:54 Duragesic TD 25 mcg Q72H FATMATA Administration Folic Acid 1 mg 11/08/19 10:00 11/20/19 18:42 Folvite PO 1 mg QDAY FATMATA Administration Gabapentin 300 mg 11/10/19 20:00 11/20/19 14:35 Gabapentin PO 300 mg TID FATMATA Administration Guaifenesin 10 ml 11/18/19 11:04 11/18/19 23:05 Guaifenesin Dm Syrup PO 10 ml Q4H PRN Administration Cough Hydromorphone HCl 2 mg 11/19/19 17:10 11/20/19 10:45 Dilaudid PO 2 mg Q6H PRN Administration Pain , Severe (7-10) Hydroxyzine HCl 10 mg 11/07/19 23:51 11/08/19 00:15 Atarax PO 10 mg Q6H PRN Administration Itching Sodium Chloride 100 mls @ 999 mls/hr 11/07/19 17:05 Nacl 0.9% IV FRANCOIS PRN Hypotension Cefepime HCl 1 gm in 100 mls @ 200 mls/hr 11/07/19 22:00 11/19/19 21:35 Cefepime/Ns 1 Gm/100 Ml IV 100 mls/hr Q24H FATMATA Administration Sodium Chloride 500 mls @ 0 mls/hr 11/15/19 16:07 Nacl 0.9% 500 Ml IV ONCE FATMATA As Directed Insulin Glargine 15 units 11/07/19 22:00 11/20/19 02:08 Lantus SUB-Q 15 units QHS FATMATA Administration Insulin Human Lispro 0 unit 11/07/19 16:30 11/20/19 16:30 Humalog SUB-Q Not Given ACHS [facility] Protocol Magnesium Hydroxide 30 ml 11/18/19 11:01 Milk Of Magnesia PO QDAY PRN Constipation Metoclopramide HCl 5 mg 11/07/19 16:30 11/20/19 17:53 Reglan PO 5 mg ACHS FATMATA Administration Morphine Sulfate 2 mg 11/15/19 16:43 11/20/19 18:42 Morphine IV 2 mg Q4H PRN Administration Pain, Moderate (4-6) Oxycodone/Acetaminophen 1 tab 11/08/19 22:31 11/16/19 15:52 Percocet 5/325 PO 1 tab Q6H PRN Administration Pain, Moderate (4-6) Sevelamer Carbonate 1,600 mg 11/09/19 07:30 11/20/19 17:53 Renvela PO 1,600 mg AC FATMATA Administration Sodium Hypochlorite 1 applic 11/09/19 10:00 11/20/19 12:39 Dakin's Full Strength TP Not Given Q12H FATMATA Zolpidem Tartrate 5 mg 11/17/19 19:52 Ambien PO QHS PRN Sleep
[2019-11-20] MEDS: CEFEPIME/NS 1 GM/100 ML 1 GM/100 ML BAG IV SCH (22:43)
[2019-11-21] MEDS: BENZONATATE 100 MG CAP PO SCH ×3 (06:01→23:02)
[2019-11-21] MEDS: MORPHINE 2 MG/1 ML INJ IV PRN ×3 (06:26→14:30)
[2019-11-21] MEDS: INSULIN LISPRO 100 UNIT/ML SUB-Q SCH ×5 (07:30→22:56)
[2019-11-21] MEDS: METOCLOPRAMIDE 10 MG TAB PO SCH ×4 (08:40→22:57)
[2019-11-21] MEDS: SEVELAMER CARBONATE 800 MG TAB PO SCH ×3 (08:40→18:07)
[2019-11-21] MEDS: GABAPENTIN 300 MG CAP PO SCH ×3 (08:41→22:57)
[2019-11-21] MEDS: SODIUM HYPOCHLORITE, DAKIN'S FULL STRENGTH (0.5%) 473 ML TOPICAL SOLN TP SCH ×2 (10:26→22:57)
[2019-11-21] MEDS: FOLIC ACID 1 MG TAB PO SCH (10:32)
[2019-11-21] MEDS: guaiFENesin DM 200/20 MG ORAL LIQD 10 ML PO PRN (12:57)
[2019-11-21] MEDS ORDERED: SODIUM CHLORIDE 0.9% 100 ML IV PRN (13:24)
--- NOTE | 2019-11-21 13:24 | Progress Note ---
Assessment and Plan - Patient Problems (1) Foot abscess, right Current Visit: Yes Status: Acute Plan to address problem: Status right below knee amputation. Continue antibiotics. Continue management per surgeon (2) End-stage renal disease on hemodialysis Current Visit: No Status: Chronic Plan to address problem: Hemodialysis on a Tuesday, and Tuesday schedule. Extra Dialysis - Isolated UFR today (3) Hypertensive chronic kidney disease with stage 5 chronic kidney disease or end stage renal disease Current Visit: No Status: Chronic Plan to address problem: Follow-up blood pressure on current medications. (4) Type 2 diabetes mellitus with diabetic chronic kidney disease Current Visit: No Status: Chronic Qualifiers: Chronic kidney disease stage: on chronic dialysis Plan to address problem: Blood sugar management by primary attending. (5) Anemia in chronic kidney disease Current Visit: No Status: Acute Qualifiers: Chronic kidney disease stage: on chronic dialysis Qualified Code(s): N18.6 - End stage renal disease; D63.1 - Anemia in chronic kidney disease; Z99.2 - Dependence on renal dialysis Plan to address problem: Erythropoietin on dialysis Subjective Date of service: 11/21/19 Principal diagnosis: ESRD, foot ulcer Interval history: Patient seen lying in bed. No complaints at this time. Pain in foot is controlled with medication. No shortness of breath . Objective - Exam Narrative Exam: Middle-aged -[place] Citizen female lying in bed in no acute distress HEENT: NCAT, pink oral mucous membrane Neck: Supple, no venous distention CVS: S1S2 RRR with no murmur, rub or gallop Chest: Clear to auscultation Abdomen: Protuberant, soft, nontender, no organomegaly, bowel sounds are present Extremities: No edema, dressing right below knee amputation stump, left below knee amputation Neuro: Awake, alert no focal deficits - Vital Signs Vital signs: Vital Signs - 12hr 11/21/19 11/21/19 06:27 11:22 Temperature 98.0 F 98.4 F Pulse Rate 89 Respiratory 20 20 Rate Blood Pressure 167/94 148/82 O2 Sat by Pulse 96 Oximetry - Lab 11/17/19 07:19 11/17/19 07:19 Most recent lab results Calcium 8.7 mg/dL (8.4-10.2) 11/17/19 07:19 Magnesium 2.20 mg/dL (1.7-2.3) 11/08/19 06:09 Medications & Allergies - Medications Allergies/Adverse Reactions: Allergies amlodipine Allergy (Verified 09/26/19 16:04) Itching losartan Allergy (Verified 09/26/19 16:04) Itching sulfamethoxazole [From Bactrim] Allergy (Verified 09/26/19 16:04) Rash trimethoprim [From Bactrim] Allergy (Verified 09/26/19 16:04) Rash morphine Adverse Reaction (Verified 09/26/19 16:04) Vomiting Home Medications: Home Medications Medication Instructions Recorded Confirmed Last Taken Type Epoetin Jacoby 10,000 Unit [Procrit] 5,000 unit IV FRANCOIS PRN vial 07/13/19 11/07/19 Unknown Rx Gabapentin 100 mg PO BID #60 capsule 07/13/19 11/07/19 Unknown Rx Insulin Glargine [Lantus VIAL] 15 units SUB-Q QHS 30 Days units 07/13/19 11/07/19 Unknown Rx Lispro Insulin [HumaLOG] See Protocol SUB-Q ACHS 30 Days 07/13/19 11/07/19 Unknown Rx units Metoprolol [Lopressor TAB] 100 mg PO BID #60 tablet 07/13/19 11/07/19 Unknown Rx NIFEdipine XL [Procardia Xl] 60 mg PO QDAY #30 tablet 07/13/19 11/07/19 Unknown Rx Torsemide [Demadex] 60 mg PO DAILY 30 Days tablet 07/13/19 11/07/19 Unknown Rx Zolpidem [Ambien] 5 mg PO QHS PRN #15 tablet 07/13/19 11/07/19 Unknown Rx cloNIDine [Catapres] 0.1 mg PO Q12H PRN #60 tablet 07/13/19 11/07/19 Unknown Rx hydrALAZINE [Apresoline TAB] 100 mg PO Q8HR #90 tab 07/13/19 11/07/19 Unknown Rx Sodium Hypochlorite [Dakin's Half 1 applic TP BID #1 bottle 09/21/19 11/07/19 Unknown Rx Strength] Active Medications: Generic Name Dose Route Start Last Admin Trade Name Freq PRN Reason Stop Dose Admin Acetaminophen 650 mg 11/10/19 19:22 11/10/19 20:13 Tylenol PO 650 mg Q6H PRN Administration Fever >101 Alprazolam 0.25 mg 11/14/19 17:43 11/18/19 23:05 Xanax PO 0.25 mg Q8H PRN Administration Anxiety Benzonatate 100 mg 11/18/19 06:00 11/21/19 06:01 Tessalon Perles PO 100 mg Q8HR FATMATA Administration Dextrose 50 ml 11/15/19 08:37 11/17/19 07:58 D50w (25gm) Syringe IV 20 ml Q30MIN PRN Administration Hypoglycemia Protocol Epoetin Jacoby 10,000 unit 11/13/19 08:42 11/20/19 12:32 Procrit IV 10,000 unit FRANCOIS PRN Administration Dialysis Fentanyl 25 mcg 11/20/19 18:00 11/20/19 17:54 Duragesic TD 25 mcg Q72H FATMATA Administration Folic Acid 1 mg 11/08/19 10:00 11/21/19 10:32 Folvite PO 1 mg QDAY FATMATA Administration Gabapentin 300 mg 11/10/19 20:00 11/21/19 08:41 Gabapentin PO 300 mg TID FATMATA Administration Guaifenesin 10 ml 11/18/19 11:04 11/21/19 12:57 Guaifenesin Dm Syrup PO 10 ml Q4H PRN Administration Cough Hydromorphone HCl 2 mg 11/19/19 17:10 11/20/19 10:45 Dilaudid PO 2 mg Q6H PRN Administration Pain , Severe (7-10) Hydroxyzine HCl 10 mg 11/07/19 23:51 11/08/19 00:15 Atarax PO 10 mg Q6H PRN Administration Itching Sodium Chloride 100 mls @ 999 mls/hr 11/07/19 17:05 Nacl 0.9% IV FRANCOIS PRN Hypotension Cefepime HCl 1 gm in 100 mls @ 200 mls/hr 11/07/19 22:00 11/20/19 22:43 Cefepime/Ns 1 Gm/100 Ml IV 11/22/19 22:29 100 mls/hr Q24H FATMATA Administration Sodium Chloride 500 mls @ 0 mls/hr 11/15/19 16:07 Nacl 0.9% 500 Ml IV ONCE FATMATA As Directed Insulin Glargine 15 units 11/07/19 22:00 11/20/19 22:44 Lantus SUB-Q Not Given QHS FATMATA Insulin Human Lispro 0 unit 11/07/19 16:30 11/21/19 13:00 Humalog SUB-Q Not Given ACHS [facility] Protocol Magnesium Hydroxide 30 ml 11/18/19 11:01 11/21/19 06:01 Milk Of Magnesia PO 30 ml QDAY PRN Administration Constipation Metoclopramide HCl 5 mg 11/07/19 16:30 11/21/19 12:57 Reglan PO 5 mg ACHS FATMATA Administration Morphine Sulfate 2 mg 11/15/19 16:43 11/21/19 10:32 Morphine IV 2 mg Q4H PRN Administration Pain, Moderate (4-6) Oxycodone/Acetaminophen 1 tab 11/08/19 22:31 11/16/19 15:52 Percocet 5/325 PO 1 tab Q6H PRN Administration Pain, Moderate (4-6) Sevelamer Carbonate 1,600 mg 11/09/19 07:30 11/21/19 11:30 Renvela PO 1,600 mg AC FATMATA Administration Sodium Hypochlorite 1 applic 11/09/19 10:00 11/21/19 10:26 Dakin's Full Strength TP Not Given Q12H FATMATA Zolpidem Tartrate 5 mg 11/17/19 19:52 Ambien PO QHS PRN Sleep
[2019-11-21] MEDS ORDERED: FLEET ENEMA PR ONE ×2 (14:23→15:30)
--- NOTE | 2019-11-21 14:53 | Discharge Summary ---
Providers - Providers Date of Admission: 11/07/19 11:36 Date of discharge: 11/21/19 Attending physician: MAGALI WEST 11/07/19 13:04 Consult to Physician [CONS] Routine Comment: Consulting Provider: MERLE TAO Physician Instructions: Reason For Exam: ESRD on HD 11/07/19 16:56 Consult to Wound/ET Nurse [CONS] Routine Reason For Exam: wound eval 11/07/19 16:57 Consult to Physician [CONS] Routine Comment: Consulting Provider: JOCELINE FLAHERTY Physician Instructions: Reason For Exam: Rt Foot Abscess 11/08/19 11:24 Consult to Physician [CONS] Routine Comment: Consulting Provider: SUMAN ARAGON Physician Instructions: Reason For Exam: surgical evaluation 11/18/19 10:19 Physical Therapy Evaluation and Treat [CONS] Routine Comment: Reason For Exam: post surgery Primary care physician: PEDIGREE RESEARCHER Hospitalization Hospital course: discharge diagnosis: /Status post right below-knee amputation Continue postop care, Pain management, wound care Physical therapy occupational therapy consulted - need acute rehab /Cough/acute bronchitis, resolved with Cough medicine, supportive care /Abscesses right cheryl/leg wound; sent on admission s/p surgical debridement s/p right BKA 11/15/2019 /Sepsis secondary to right foot abscess; Status post right BKA. no need for abx following amputation /-Peripheral neuropathy; continue gabapentin /End-stage renal disease; on hemodialysis Nephrology following HD per schedule /-Hypertension; Moderate control'resume multiple home antihypertensives When necessary medications /Type 2 diabetes mellitus; Accu-Chek sliding scale coverage ADA diet --DVT prophylaxis; heparin during this--Full CODE STATUS DC to acute rehab Hospitalist Physical General appearance: Present: mild distress, well-nourished - EENT Eyes: Present: PERRL, EOM intact - Neck Neck: Present: supple, normal ROM - Respiratory Respiratory effort: normal Respiratory: bilateral: diminished, negative: rales, rhonchi, wheezing - Cardiovascular Rhythm: regular Heart Sounds: Present: S1 & S2 - Extremities Extremities: no ischemia, abnormal (Sedrick BKA), right stump with wound dressing - Abdominal General gastrointestinal: soft, non-tender, non-distended, normal bowel sounds - Integumentary Integumentary: Present: clear, warm - Psychiatric Psychiatric: appropriate mood/affect, cooperative - Neurologic Neurologic: moves all extremities Disposition: [id number] Time spent for discharge: 34 minutes Core Measure Documentation - Palliative Care Palliative Care/ Comfort Measures: Not Applicable - Core Measures Any of the following diagnoses?: history only Exam - Constitutional Vitals: Temp Pulse Resp BP Pulse Ox 98.4 F 89 20 148/82 96 11/21/19 11:22 11/21/19 11:22 11/21/19 11:22 11/21/19 11:22 11/21/19 11:22 Plan Activity: up only with assistance, fall precautions Weight Bearing Status: Non-Weight Bearing Diet: renal Wound: per your surgeon's advice Special Instructions: restrict fluid intake to (1.2L per day) Follow up with: PRIMARY MD MEGAN [Primary Care Provider] - 7 Days
[2019-11-21] MEDS: HYDROmorphone 2 MG TAB PO PRN (18:53)
[2019-11-21 22:43] VITALS: BP 167/98
[2019-11-21] MEDS: CEFEPIME/NS 1 GM/100 ML 1 GM/100 ML BAG IV SCH (22:56)
[2019-11-21] MEDS: INSULIN GLARGINE 100 UNITS/ML SUB-Q SCH (22:57)
== END 2019-11-21 23:35 | DRG 853 ==
LOC: 3A 10:05 → UNDOADMIN 10:05 → 3A 11:36
PROVIDERS: ADMIT Internal Medicine; ATTEND Internal Medicine
PROC: 0KBV0ZZ Excision of Right Foot Muscle, Open Approach (ICD-10-PCS; 2019-11-08)
PROC: 0Y6H0Z1 Detachment at Right Lower Leg, High, Open Approach (ICD-10-PCS; principal; 2019-11-15)
PROC: 30233N1 Transfusion of Nonautologous Red Blood Cells into Peripheral Vein, Percutaneous Approach (ICD-10-PCS; 2019-11-15)
PROC: 5A1D70Z Performance of Urinary Filtration, Intermittent, Less than 6 Hours Per Day (ICD-10-PCS; 2019-11-15)
PROC: 5A1D70Z Performance of Urinary Filtration, Intermittent, Less than 6 Hours Per Day (ICD-10-PCS; 2019-11-17)
PROC: 5A1D70Z Performance of Urinary Filtration, Intermittent, Less than 6 Hours Per Day (ICD-10-PCS; 2019-11-20)
PROC: 5A1D70Z Performance of Urinary Filtration, Intermittent, Less than 6 Hours Per Day (ICD-10-PCS; 2019-11-21)
DX: A41.9 Sepsis, unspecified organism (principal); N18.6 End stage renal disease; I12.0 Hypertensive chronic kidney disease with stage 5 chronic kidney disease or end stage renal disease; L02.611 Cutaneous abscess of right foot; N25.81 Secondary hyperparathyroidism of renal origin; E11.22 Type 2 diabetes mellitus with diabetic chronic kidney disease; J40 Bronchitis, not specified as acute or chronic; E11.42 Type 2 diabetes mellitus with diabetic polyneuropathy; D63.1 Anemia in chronic kidney disease; K21.9 Gastro-esophageal reflux disease without esophagitis; E78.2 Mixed hyperlipidemia; E11.621 Type 2 diabetes mellitus with foot ulcer; L97.509 Non-pressure chronic ulcer of other part of unspecified foot with unspecified severity; Z99.2 Dependence on renal dialysis; Z79.4 Long term (current) use of insulin; Z89.512 Acquired absence of left leg below knee; Z82.49 Family history of ischemic heart disease and other diseases of the circulatory system; Z88.2 Allergy status to sulfonamides; Z88.8 Allergy status to other drugs, medicaments and biological substances; Z88.6 Allergy status to analgesic agent; Z87.891 Personal history of nicotine dependence; Z87.09 Personal history of other diseases of the respiratory system
CPT/HCPCS: 36415; 80048; 80053; 80074; 80076; 80202; 82947; 82962; 83735; 85007; 85014; 85018; 85025; 86850; 86900; 86901; 86920; 87116; 87400; 88307; 88311; G0378; J0692; J0885; J1170; J1815; J1940; J2270; J2370; J2704; J3010; J3370; J7030; J7040; P9016

== ENCOUNTER 2020-03-16 00:33 | Inpatient (IN) | payer MEDICARE ==
[2020-03-16] MEDS ORDERED: ONDANSETRON 4 MG ODT TAB ONE (00:44)
[2020-03-16] MEDS ORDERED: ONDANSETRON 4 MG/2 ML INJ ONE ×3 (00:45→14:56)
[2020-03-16] MEDS ORDERED: ONDANSETRON 4 MG/2 ML INJ IV ONE ×2 (00:50→03:06)
[2020-03-16 01:35] LABS: Hemoglobin 11.9 gm/dl (10.1-14.3); Mean Corpuscular HGB Conc 33 % (30-34); Red Blood Count 5.33 M/mm3 (3.65-5.03)
[2020-03-16] MEDS ORDERED: HYDROmorphone 1 MG/1 ML INJ IV ONE (01:41)
[2020-03-16 01:45] LABS: Mean Corpuscular Volume 68 fl (79-97); Platelet Count 269 K/mm3 (140-440)
[2020-03-16 01:50] LABS: Calcium 9.7 mg/dL (8.4-10.2)
[2020-03-16 01:57] LABS: Albumin 3.5 g/dL (3.9-5)
[2020-03-16 02:33] LABS: Anisocytosis 1+; Basophils % (Manual) 0 % (0.0-1.8); Eosinophils % (Manual) 0 % (0.0-4.3); Hypochromasia 1+; Schistocytes 1+; Target Cells 1+; Total Cells Counted 100
--- NOTE | 2020-03-16 02:43 | Cat Scan Report ---
CT abdomen pelvis wo con INDICATION: lower abd pain n,v. TECHNIQUE: All CT scans at this location are performed using the following dose modulation technique: Automated exposure control. Helical slices were obtained through the abdomen and pelvis. No contrast is adminis tered COMPARISON: CT scan dated 09/13/2019 FINDINGS: Abdomen: There is mild atelectasis in the lung bases. Vascular calcifications are noted in the hepati c arteries, mesenteric vessels, renal arteries, aorta and iliac arteries. There is a moderate to large amount of ascites. The liver, spleen, pancreas, adrenal glands, and kidn eys are unchanged in appearance. Soft tissue density structures noted in the left periaortic location in the retroperitoneum. There is cholelithiasis There is no bowel obstruction or free air. There is subcutaneous edema. Pelvis: There is ascites. There is extensive vascular calcifications. On review of bone windows, no acute osseous abnormalities are seen. IMPRESSION: 1. There is no significant change compared to the prior study. There is a moderate to large amount of ascites. There are extensive vascular calcifications in the abdomen and pelvis. There is cholelithiasis. Soft tissue density structures in the left periaortic location. This may represent adenopathy or mony ateral vessels. Signer Name: Robel Beavers MD Signed: 03/16/2020 2:39 AM Workstation Name: [id number]
--- NOTE | 2020-03-16 03:09 | Emergency Department Report ---
ED Abdominal Pain HPI - General Chief Complaint: Abdominal Pain Stated Complaint: NAUSEA VOMITING Time Seen by Provider: 03/16/20 01:32 Source: patient, EMS Mode of arrival: Wheelchair Limitations: Physical Limitation - History of Present Illness Initial Comments: 55-year-old female with a past medical history of end-stage renal disease on dialysis Tuesday, , Tuesday, ERCP induced pancreatitis, hyperlipidemia, hypertension, diabetes, and bilateral BKA presents to the hospital with complaints of nausea, vomiting, and abdominal pain since yesterday. Patient has been unable to tolerate any p.o. intake. She missed her dialysis today/Tuesday due to the symptoms. She complains of lower abdominal pain which she is unable to characterize. She denies fever, melena, hematochezia, or hematemesis. Previous abdominal surgery includes . printing supervisor: Dr. Beltran Severity scale (0 -10): 10 - Related Data Previous Rx's Medication Instructions Recorded Last Taken Type ALPRAZolam [Xanax TAB] 0.25 mg PO BID PRN #30 tablet 12/20/19 Unknown Rx Epoetin Jacoby 20,000 Unit [Procrit] 20,000 unit IV TuThSa vial 12/20/19 Unknown Rx Famotidine [Pepcid] 20 mg PO QDAY #30 tablet 12/20/19 Unknown Rx Folic Acid [Folvite] 1 mg PO QDAY #30 tablet 12/20/19 Unknown Rx Insulin Glargine [Lantus VIAL] 12 units SUB-Q QHS 30 Days #1 units 12/20/19 Unknown Rx Lispro Insulin [HumaLOG] See Protocol SUB-Q ACHS 30 Days #1 12/20/19 Unknown Rx units Metoclopramide [Reglan TAB] 5 mg PO ACHS #60 tablet 12/20/19 Unknown Rx NIFEdipine XL [Procardia Xl] 30 mg PO Q12HR #60 tablet 12/20/19 Unknown Rx Polyethylene Glycol 3350 17 gm PO DAILY #30 powd.pack 12/20/19 Unknown Rx [Powderlax] Sennosides/Docusate Sodium [Senna 1 each PO DAILY #30 capsule 12/20/19 Unknown Rx Plus 8.6-50 mg Softgel] Sevelamer Carbonate [Renvela] 1,600 mg PO AC #360 tablet 12/20/19 Unknown Rx carvediloL [Coreg] 25 mg PO BID #60 tablet 12/20/19 Unknown Rx cloNIDine [Catapres] 0.1 mg PO Q12HR #60 tablet 12/20/19 Unknown Rx hydrALAZINE [Apresoline TAB] 100 mg PO BID #60 tab 12/20/19 Unknown Rx hydrOXYzine HCL [Atarax] 25 mg PO Q6H PRN #120 tablet 12/20/19 Unknown Rx oxyCODONE [roxiCODONE] 5 mg PO Q4H PRN #30 tablet 12/20/19 Unknown Rx Acetaminophen 325 mg PO Q6H PRN #8 capsule 12/27/19 Unknown Rx Sertraline [Zoloft] 25 mg PO QDAY #30 tablet 12/27/19 Unknown Rx Allergies Allergy/AdvReac Type Severity Reaction Status Date / Time amlodipine Allergy Itching Verified 09/26/19 16:04 losartan Allergy Itching Verified 09/26/19 16:04 sulfamethoxazole Allergy Rash Verified 09/26/19 16:04 [From Bactrim] trimethoprim [From Bactrim] Allergy Rash Verified 09/26/19 16:04 morphine AdvReac Vomiting Verified 09/26/19 16:04 ED Review of Systems ROS: Stated complaint: NAUSEA VOMITING Other details as noted in HPI Comment: All other systems reviewed and negative ED Past Medical Hx - Past Medical History Hx Hypertension: Yes Hx Heart Attack/AMI: No Hx Congestive Heart Failure: No Hx Diabetes: Yes Hx Renal Disease: Yes (HD TTS) Hx Arthritis: Yes Hx Seizures: No Hx Asthma: No Hx COPD: No Additional medical history: HLD, pancreatitis, - Surgical History Additional Surgical History: Left arm Fistula, ERCP, right knee replacement; left BKA, Right BKA - Social History Smoking Status: Former Smoker Substance Use Type: None - Medications Home Medications: Home Medications Medication Instructions Recorded Confirmed Last Taken Type ALPRAZolam [Xanax TAB] 0.25 mg PO BID PRN #30 tablet 12/20/19 12/26/19 Unknown Rx Epoetin Jacoby 20,000 Unit [Procrit] 20,000 unit IV TuThSa vial 12/20/19 12/26/19 Unknown Rx Famotidine [Pepcid] 20 mg PO QDAY #30 tablet 12/20/19 12/26/19 Unknown Rx Folic Acid [Folvite] 1 mg PO QDAY #30 tablet 12/20/19 12/26/19 Unknown Rx Insulin Glargine [Lantus VIAL] 12 units SUB-Q QHS 30 Days #1 units 12/20/19 12/26/19 Unknown Rx Lispro Insulin [HumaLOG] See Protocol SUB-Q ACHS 30 Days #1 12/20/19 12/26/19 Unknown Rx units Metoclopramide [Reglan TAB] 5 mg PO ACHS #60 tablet 12/20/19 12/26/19 Unknown Rx NIFEdipine XL [Procardia Xl] 30 mg PO Q12HR #60 tablet 12/20/19 12/26/19 Unknown Rx Polyethylene Glycol 3350 17 gm PO DAILY #30 powd.pack 12/20/19 12/26/19 Unknown Rx [Powderlax] Sennosides/Docusate Sodium [Senna 1 each PO DAILY #30 capsule 12/20/19 12/26/19 Unknown Rx Plus 8.6-50 mg Softgel] Sevelamer Carbonate [Renvela] 1,600 mg PO AC #360 tablet 12/20/19 12/26/19 Unknown Rx carvediloL [Coreg] 25 mg PO BID #60 tablet 12/20/19 12/26/19 Unknown Rx cloNIDine [Catapres] 0.1 mg PO Q12HR #60 tablet 12/20/19 12/26/19 Unknown Rx hydrALAZINE [Apresoline TAB] 100 mg PO BID #60 tab 12/20/19 12/26/19 Unknown Rx hydrOXYzine HCL [Atarax] 25 mg PO Q6H PRN #120 tablet 12/20/19 12/26/19 Unknown Rx oxyCODONE [roxiCODONE] 5 mg PO Q4H PRN #30 tablet 12/20/19 Unknown Rx Acetaminophen 325 mg PO Q6H PRN #8 capsule 12/27/19 Unknown Rx Sertraline [Zoloft] 25 mg PO QDAY #30 tablet 12/27/19 Unknown Rx ED Physical Exam - General Limitations: Physical Limitation - Other Other exam information: General: Ill-appearing Head: Atraumatic Eyes: normal appearance ENT: Moist mucous membranes Neck: Normal appearance, no midline tenderness Chest: Clear to auscultation bilaterally CV: Regular rate and rhythm Abdomen: Soft, normal bowel sounds, generalized tenderness greatest in the lower abdomen, no rebound or guard Back: Normal inspection Extremity: Bilateral BKA Neuro: Alert O x 3, no facial asymmetry, speech clear, no gross motor sensory deficit Psych: Appropriate behavior ED Course Vital Signs 03/16/20 03/16/20 03/16/20 00:44 00:46 00:49 Temperature 98.9 F Pulse Rate 94 H 106 H Respiratory 20 Rate Blood Pressure 177/99 O2 Sat by Pulse 100 100 Oximetry 03/16/20 03/16/20 03/16/20 01:24 01:31 01:45 Temperature Pulse Rate 102 H 90 Respiratory 24 33 H Rate Blood Pressure 177/104 177/104 O2 Sat by Pulse 100 100 100 Oximetry 03/16/20 03/16/20 03/16/20 02:01 02:15 02:30 Temperature Pulse Rate 108 H 98 H 93 H Respiratory 22 32 H 26 H Rate Blood Pressure 177/104 177/104 177/104 O2 Sat by Pulse 98 100 100 Oximetry 03/16/20 03/16/20 03/16/20 02:45 03:00 03:15 Temperature Pulse Rate 82 85 81 Respiratory 25 H 21 30 H Rate Blood Pressure 177/104 101/73 101/73 O2 Sat by Pulse 90 93 Oximetry 03/16/20 03/16/20 03:31 03:45 Temperature Pulse Rate 84 80 Respiratory 26 H 18 Rate Blood Pressure 101/73 101/73 O2 Sat by Pulse 98 94 Oximetry ED Medical Decision Making - Lab Data Result diagrams: 03/16/20 01:12 03/16/20 01:12 Lab Results 03/16/20 03/16/20 03/16/20 Range/Units 01:12 01:12 Unknown WBC 8.3 (4.5-11.0) K/mm3 RBC 5.33 H (3.65-5.03) M/mm3 Hgb 11.9 (10.1-14.3) gm/dl Hct 36.0 (30.3-42.9) % MCV 68 L (79-97) fl MCH 22 L (28-32) pg MCHC 33 (30-34) % RDW 19.0 H (13.2-15.2) % Plt Count 269 (140-440) K/mm3 Add Manual Diff Complete Total Counted 100 Seg Neuts % (Manual) 77.0 H (40.0-70.0) % Band Neutrophils % 0 % Lymphocytes % (Manual) 15.0 (13.4-35.0) % Reactive Lymphs % (Man) 0 % Monocytes % (Manual) 8.0 H (0.0-7.3) % Eosinophils % (Manual) 0 (0.0-4.3) % Basophils % (Manual) 0 (0.0-1.8) % Metamyelocytes % 0 % Myelocytes % 0 % Promyelocytes % 0 % Blast Cells % 0 % Nucleated RBC % Not Reportable Seg Neutrophils # Man 6.4 (1.8-7.7) K/mm3 Band Neutrophils # 0.0 K/mm3 Lymphocytes # (Manual) 1.2 (1.2-5.4) K/mm3 Abs React Lymphs (Man) 0.0 K/mm3 Monocytes # (Manual) 0.7 (0.0-0.8) K/mm3 Eosinophils # (Manual) 0.0 (0.0-0.4) K/mm3 Basophils # (Manual) 0.0 (0.0-0.1) K/mm3 Metamyelocytes # 0.0 K/mm3 Myelocytes # 0.0 K/mm3 Promyelocytes # 0.0 K/mm3 Blast Cells # 0.0 K/mm3 WBC Morphology Not Reportable Hypersegmented Neuts Not Reportable Hyposegmented Neuts Not Reportable Hypogranular Neuts Not Reportable Smudge Cells Not Reportable Toxic Granulation Not Reportable Toxic Vacuolation Not Reportable Dohle Bodies Not Reportable Pelger-Huet Anomaly Not Reportable Mary Lou Rods Not Reportable Platelet Estimate Not Reportable Clumped Platelets Not Reportable Plt Clumps, EDTA Not Reportable Large Platelets Not Reportable Giant Platelets Not Reportable Platelet Satelliting Not Reportable Plt Morphology Comment Not Reportable RBC Morphology Not Reportable Dimorphic RBCs Not Reportable Polychromasia Not Reportable Hypochromasia 1+ Poikilocytosis Not Reportable Anisocytosis 1+ Microcytosis 1+ Macrocytosis Not Reportable Spherocytes Not Reportable Pappenheimer Bodies Not Reportable Sickle Cells Not Reportable Target Cells 1+ Tear Drop Cells Not Reportable Ovalocytes Not Reportable Helmet Cells Not Reportable Nelson-Lubeck Bodies Not Reportable Newell Rings Not Reportable Natividad Cells Not Reportable Bite Cells Not Reportable Crenated Cell Not Reportable Elliptocytes Not Reportable Acanthocytes (Spur) Not Reportable Rouleaux Not Reportable Hemoglobin C Crystals Not Reportable Schistocytes 1+ Malaria parasites Not Reportable Sigifredo Bodies Not Reportable Hem Pathologist Commnt No Sodium 133 L (137-145) mmol/L Potassium 4.2 (3.6-5.0) mmol/L Chloride 88.9 L (98-107) mmol/L Carbon Dioxide 20 L (22-30) mmol/L Anion Gap 28 mmol/L BUN 58 H (7-17) mg/dL Creatinine 5.3 H (0.7-1.2) mg/dL Estimated GFR 10 ml/min BUN/Creatinine Ratio 11 % Glucose 150 H (65-100) mg/dL Calcium 9.7 (8.4-10.2) mg/dL Total Bilirubin 1.80 H (0.1-1.2) mg/dL Direct Bilirubin 1.0 H (0-0.2) mg/dL Indirect Bilirubin 0.8 mg/dL AST 24 (5-40) units/L ALT 14 (7-56) units/L Alkaline Phosphatase 675 H (35-129) units/L Total Protein 9.7 H (6.3-8.2) g/dL Albumin 3.5 L (3.9-5) g/dL Albumin/Globulin Ratio 0.6 % Lipase 43 (13-60) units/L - EKG Data -: EKG Interpreted by Me (CHAVA) EKG shows normal: sinus rhythm, ST-T waves (no stemi) Rate: normal - EKG Data When compared to previous EKG there are: no significant change (Patient has intermittent left bundle branch block on past EKG) - Radiology Data Radiology results: report reviewed CT abdomen pelvis wo con INDICATION: lower abd pain n,v. TECHNIQUE: All CT scans at this location are performed using the following dose modulation technique: Automated exposure control. Helical slices were obtained through the abdomen and pelvis. No contrast is administered COMPARISON: CT scan dated 09/13/2019 FINDINGS: Abdomen: There is mild atelectasis in the lung bases. Vascular calcifications are noted in the hepatic arteries, mesenteric vessels, renal arteries, aorta and iliac arteries. There is a moderate to large amount of ascites. The liver, spleen, pancreas, adrenal glands, and kidneys are unchanged in appearance. Soft tissue density structures noted in the left periaortic location in the retroperitoneum. There is cholelithiasis There is no bowel obstruction or free air. There is subcutaneous edema. Pelvis: There is ascites. There is extensive vascular calcifications. On review of bone windows, no acute osseous abnormalities are seen. IMPRESSION: 1. There is no significant change compared to the prior study. There is a moderate to large amount of ascites. There are extensive vascular calcifications in the abdomen and pelvis. There is cholelithiasis. CHEST 1 VIEW INDICATION / CLINICAL INFORMATION: cough, missed dialysis. COMPARISON: 12/25/2019 FINDINGS: SUPPORT DEVICES: None. HEART / MEDIASTINUM: No significant abnormality. LUNGS / PLEURA: There is mild venous congestion. No pneumothorax. ADDITIONAL FINDINGS: No significant additional findings. IMPRESSION: 1. There is mild venous congestion - Medical Decision Making Patient presents to the ED with abdominal pain nausea vomiting. Patient required repeated dose of Zofran to control nausea symptoms. Treated with Dilau did 0.5 mg for pain. Patient is insulin-dependent diabetic therefore gastroparesis is also on the differential. CT abdomen pelvis shows ascites without other acute findings. Patient will be admitted to the hospitalist service for stabilization and symptoms and GI consult as needed and to nephrolog y consult has been ordered to manage dialysis. Critical Care Time: No Critical care attestation.: If time is entered above; I have spent that time in minutes in the direct care of this critically ill patient, excluding procedure time. ED Disposition Clinical Impression: Nausea and vomiting, Abdominal pain, Missed dialysis, IDDM (insulin dependent diabetes mellitus), ESRD (end stage renal disease), Ascites Disposition: 09 OP ADMIT IP TO THIS HOSP Is pt being admited?: Yes Condition: Stable Referrals: PRIMARY CARE, [Primary Care Provider] - 3-5 Days Time of Disposition: 03:13 (DR Wilson/hosp)
[2020-03-16] MEDS ORDERED: DEXTROSE 50% IN WATER (25GM) 50 ML SYRINGE IV PRN (03:49)
[2020-03-16] MEDS ORDERED: ACETAMINOPHEN 325 MG TAB PO PRN (03:49)
[2020-03-16] MEDS ORDERED: MAGNESIUM HYDROXIDE (MOM) ORAL LIQD UDC PO PRN (03:49)
--- NOTE | 2020-03-16 03:59 | History and Physical Report ---
History of Present Illness Date of examination: 03/16/20 Date of admission: 03/16/2020 Chief complaint: Nausea vomiting and diarrhea History of present illness: 55-year-old female with known history of hypertension, diabetes mellitus, bilateral BKA, ERCP induced pancreatitis and end-stage renal disease on dialysis Tuesdays, and Tuesday presenting to the emergency room today with complaints of nausea and vomiting and abdominal pain for 2 days. Patient has missed last 2 dialysis secondary to the nausea and vomiting and abdominal pain. She has not been able to tolerate p.o. intake since symptoms started. She denies any fever or chills, no diarrhea no bright red blood per rectum. Patient follows up with material dispatcher Dr. Beltran. Work-up in the emergency room including chest x-ray revealed some mild pulmonary vascular congestion. Past History Past Medical History: arthritis, diabetes, ESRD (On dialysis on Tuesdays, and Tuesday), hypertension, hyperlipidemia, other (ERCP induced pancreatitis) Past Surgical History: Other (Bilateral BKA, left AV fistula) Social history: smoking (Former smoker) Medications and Allergies Allergies Allergy/AdvReac Type Severity Reaction Status Date / Time amlodipine Allergy Itching Verified 09/26/19 16:04 losartan Allergy Itching Verified 09/26/19 16:04 sulfamethoxazole Allergy Rash Verified 09/26/19 16:04 [From Bactrim] trimethoprim [From Bactrim] Allergy Rash Verified 09/26/19 16:04 morphine AdvReac Vomiting Verified 09/26/19 16:04 Home Medications Medication Instructions Recorded Confirmed Last Taken Type ALPRAZolam [Xanax TAB] 0.25 mg PO BID PRN #30 tablet 12/20/19 12/26/19 Unknown Rx Epoetin Jacoby 20,000 Unit [Procrit] 20,000 unit IV TuThSa vial 12/20/19 12/26/19 Unknown Rx Famotidine [Pepcid] 20 mg PO QDAY #30 tablet 12/20/19 12/26/19 Unknown Rx Folic Acid [Folvite] 1 mg PO QDAY #30 tablet 12/20/19 12/26/19 Unknown Rx Insulin Glargine [Lantus VIAL] 12 units SUB-Q QHS 30 Days #1 units 12/20/19 12/26/19 Unknown Rx Lispro Insulin [HumaLOG] See Protocol SUB-Q ACHS 30 Days #1 12/20/19 12/26/19 Unknown Rx units Metoclopramide [Reglan TAB] 5 mg PO ACHS #60 tablet 12/20/19 12/26/19 Unknown Rx NIFEdipine XL [Procardia Xl] 30 mg PO Q12HR #60 tablet 12/20/19 12/26/19 Unknown Rx Polyethylene Glycol 3350 17 gm PO DAILY #30 powd.pack 12/20/19 12/26/19 Unknown Rx [Powderlax] Sennosides/Docusate Sodium [Senna 1 each PO DAILY #30 capsule 12/20/19 12/26/19 Unknown Rx Plus 8.6-50 mg Softgel] Sevelamer Carbonate [Renvela] 1,600 mg PO AC #360 tablet 12/20/19 12/26/19 Unknown Rx carvediloL [Coreg] 25 mg PO BID #60 tablet 12/20/19 12/26/19 Unknown Rx cloNIDine [Catapres] 0.1 mg PO Q12HR #60 tablet 12/20/19 12/26/19 Unknown Rx hydrALAZINE [Apresoline TAB] 100 mg PO BID #60 tab 12/20/19 12/26/19 Unknown Rx hydrOXYzine HCL [Atarax] 25 mg PO Q6H PRN #120 tablet 12/20/19 12/26/19 Unknown Rx oxyCODONE [roxiCODONE] 5 mg PO Q4H PRN #30 tablet 12/20/19 Unknown Rx Acetaminophen 325 mg PO Q6H PRN #8 capsule 12/27/19 Unknown Rx Sertraline [Zoloft] 25 mg PO QDAY #30 tablet 12/27/19 Unknown Rx Active Meds: Active Medications Acetaminophen (Tylenol) 650 mg PO Q4H PRN PRN Reason: Pain MILD(1-3)/Fever >100.5/CASTILLO Dextrose (D50w (25gm) Syringe) 50 ml IV Q30MIN PRN; Protocol PRN Reason: Hypoglycemia Hydromorphone HCl (Dilaudid) 0.25 mg IV Q3H PRN PRN Reason: Pain, Moderate (4-6) Insulin Human Lispro (Humalog) 0 unit SUB-Q ACHS FATMATA; Protocol Magnesium Hydroxide (Milk Of Magnesia) 30 ml PO Q4H PRN PRN Reason: Constipation Ondansetron HCl (Zofran) 4 mg IV Q8H PRN PRN Reason: Nausea And Vomiting Sodium Chloride (Sodium Chloride Flush Syringe 10 Ml) 10 ml IV BID FATMATA Sodium Chloride (Sodium Chloride Flush Syringe 10 Ml) 10 ml IV PRN PRN PRN Reason: LINE FLUSH Review of Systems Constitutional: no fever, no chills Ears, nose, mouth and throat: headache, no sore throat, no vertigo Cardiovascular: no chest pain, no palpitations Respiratory: cough with sputum, hemoptysis Gastrointestinal: nausea, vomiting, diarrhea Genitourinary Female: no dysuria, no hematuria Musculoskeletal: no neck pain, no low back pain Integumentary: no rash, no pruritis Neurological: no headaches, no change in mentation Exam - Constitutional Vitals: Temp Pulse Resp BP Pulse Ox 98.9 F 80 18 101/73 94 03/16/20 00:49 03/16/20 03:45 03/16/20 03:45 03/16/20 03:45 03/16/20 03:45 General appearance: Present: no acute distress, well-nourished - EENT Eyes: Present: PERRL, EOM intact ENT: hearing intact, clear oral mucosa, dentition normal - Neck Neck: Present: supple, normal ROM - Respiratory Respiratory effort: normal Respiratory: left: rales - Cardiovascular Rhythm: regular Heart Sounds: Present: S1 & S2, systolic murmur - Extremities Extremities: Full ROM, abnormal (Bilateral BKA) Peripheral Pulses: within normal limits - Abdominal General gastrointestinal: Present: soft, non-tender, non-distended, normal bowel sounds - Integumentary Integumentary: Present: clear, warm, dry - Musculoskeletal Musculoskeletal: strength equal bilaterally - Psychiatric Psychiatric: appropriate mood/affect, intact judgment & insight, cooperative - Neurologic Neurologic: CNII-XII intact, moves all extremities Results - Labs CBC & Chem 7: 03/16/20 01:12 03/16/20 01:12 Labs: Abnormal lab results 03/16/20 03/16/20 03/16/20 Range/Units 01:12 01:12 Unknown RBC 5.33 H (3.65-5.03) M/mm3 MCV 68 L (79-97) fl MCH 22 L (28-32) pg RDW 19.0 H (13.2-15.2) % Seg Neuts % (Manual) 77.0 H (40.0-70.0) % Monocytes % (Manual) 8.0 H (0.0-7.3) % Sodium 133 L (137-145) mmol/L Chloride 88.9 L (98-107) mmol/L Carbon Dioxide 20 L (22-30) mmol/L BUN 58 H (7-17) mg/dL Creatinine 5.3 H (0.7-1.2) mg/dL Glucose 150 H (65-100) mg/dL Total Bilirubin 1.80 H (0.1-1.2) mg/dL Direct Bilirubin 1.0 H (0-0.2) mg/dL Alkaline Phosphatase 675 H (35-129) units/L Total Protein 9.7 H (6.3-8.2) g/dL Albumin 3.5 L (3.9-5) g/dL Assessment and Plan - Patient Problems (1) Nausea & vomiting Current Visit: Yes Status: Acute Plan to address problem: Patient has been placed on IV Zofran PRN for nausea and vomiting. (2) ESRD (end stage renal disease) Current Visit: Yes Status: Chronic Plan to address problem: We will place a consult to nephrology for dialysis. Patient follows up with Dr. Beltran. (3) Diabetes Current Visit: No Status: Chronic Qualifiers: Diabetes mellitus type: type 2 Diabetes mellitus meterman insulin use: with meterman use Diabetes mellitus complication status: with skin complications Diabetes mellitus complication detail: with foot ulcer Qualified Code(s): E11.621 - Type 2 diabetes mellitus with foot ulcer; L97.509 - Non-pressure chronic ulcer of other part of unspecified foot with unspecified severity; Z79.4 - terminal carman (current) use of insulin Plan to address problem: We will monitor Accu-Cheks and resume routine home medications once reconciled. (4) HLD (hyperlipidemia) Current Visit: No Status: Chronic Qualifiers: Hyperlipidemia type: mixed hyperlipidemia Qualified Code(s): E78.2 - Mixed hyperlipidemia Plan to address problem: We will monitor lipid profile and resume routine home medications. (5) DVT prophylaxis Current Visit: No Status: Acute Plan to address problem: Patient placed on subcutaneous heparin. (6) Full code status Current Visit: No Status: Acute (7) HTN (hypertension) Current Visit: No Status: Chronic Qualifiers: Hypertension type: essential hypertension Qualified Code(s): I10 - Essential (primary) hypertension
--- NOTE | 2020-03-16 04:02 | XRay Report ---
CHEST 1 VIEW INDICATION / CLINICAL INFORMATION: cough, missed dialysis. COMPARISON: 12/25/2019 FINDINGS: SUPPORT DEVICES: None. HEART / MEDIASTINUM: No significant abnormality. LUNGS / PLEURA: There is mild venous congestion. No pneumothorax. ADDITIONAL FINDINGS: No significant additional findings. IMPRESSION: 1. There is mild venous congestion Signer Name: Robel Beavers MD Signed: 03/16/2020 3:57 AM Workstation Name: [id number]
[2020-03-16] MEDS: HYDROmorphone 1 MG/1 ML INJ IV PRN ×4 (05:00→22:25)
[2020-03-16] MEDS ORDERED: SODIUM CHLORIDE 0.9% 250ML 250 ML IV ONE (05:58)
[2020-03-16] MEDS: ONDANSETRON 4 MG/2 ML INJ IV PRN ×3 (06:50→21:41)
[2020-03-16] MEDS ORDERED: HYDROmorphone 1 MG/1 ML INJ ONE ×2 (11:05→14:56)
[2020-03-16] MEDS: INSULIN LISPRO 100 UNIT/ML SUB-Q SCH ×4 (11:08→22:25)
[2020-03-16] MEDS: HEPARIN 5,000 UNIT/1 ML VIAL SUB-Q SCH ×2 (15:01→21:41)
[2020-03-16] MEDS: diphenhydrAMINE 50 MG/ML VIAL IV PRN (21:41)
[2020-03-17 04:37] LABS: Hematocrit 36.6 % (30.3-42.9); Mean Corpuscular HGB Conc 33 % (30-34); Red Blood Count 5.34 M/mm3 (3.65-5.03); Red Cell Distribution Width 19.2 % (13.2-15.2)
[2020-03-17 04:38] LABS: Mean Corpuscular Volume 69 fl (79-97)
[2020-03-17 04:39] LABS: Platelet Count 262 K/mm3 (140-440)
[2020-03-17 04:46] LABS: INR 1.27 (0.87-1.13)
[2020-03-17] MEDS: diphenhydrAMINE 50 MG/ML VIAL IV PRN ×3 (04:59→23:09)
[2020-03-17] MEDS: HYDROmorphone 1 MG/1 ML INJ IV PRN ×4 (04:59→23:08)
[2020-03-17 05:00] LABS: BUN/Creatinine Ratio TNR; Blood Urea Nitrogen TNR mg/dL (7-17)
[2020-03-17 05:01] LABS: Calcium TNR mg/dL (8.4-10.2); Hemolysis Index TNR
[2020-03-17] MEDS: HEPARIN 5,000 UNIT/1 ML VIAL SUB-Q SCH ×3 (05:22→21:39)
[2020-03-17 05:56] LABS: Eosinophils % (Manual) 0 % (0.0-4.3); Total Cells Counted 100
[2020-03-17 05:57] LABS: Anisocytosis 1+; Hypochromasia 1+; Platelet Estimate Consistent w Auto; Target Cells 1+
[2020-03-17] MEDS: ONDANSETRON 4 MG/2 ML INJ IV PRN ×2 (07:56→23:09)
[2020-03-17] MEDS: INSULIN LISPRO 100 UNIT/ML SUB-Q SCH ×4 (08:00→23:00)
[2020-03-17 08:08] LABS: Calcium 9.4 mg/dL (8.4-10.2)
[2020-03-17] MEDS ORDERED: SODIUM CHLORIDE 0.9% 100 ML IV PRN (08:18)
[2020-03-17 12:50] LABS: Hepatitis B Surface Antigen Non-Reactive (Negative); Hepatitis C Virus Antibody Non-Reactive (NonReactive)
[2020-03-17] MEDS ORDERED: SODIUM CHLORIDE 0.9% 1000 ML 2,000 ML ONE (12:53)
--- NOTE | 2020-03-17 13:33 | Progress Note ---
Assessment and Plan / Nausea & vomiting likely from gastroparesis, will resume home meds Patient has been placed on IV Zofran PRN for nausea and vomiting. / ESRD (end stage renal disease) consulted nephrology for dialysis. Patient follows up with Dr. Beltran. monitor BMP, avoid nephrotoxins / Diabetes type 2 monitor Accu-Cheks and cont SSI hold long acting insulin as she is c/o n/v and BG labile /Hyperkalemia, should improve with HD / HLD (hyperlipidemia) resume routine home medications. /HTN (hypertension) resume home meds, monitor BP /b/l BKA - supportive care /DVT prophylaxis Patient placed on subcutaneous heparin. / Full code status 03/17; s/p HD today, repeat BMP. resume home meds. c/o Nausea and poor oral intake Subjective Date of service: 03/17/20 Interval history: Patient seen and examined K levated today, plan for HD c/o N/V, but no abdominal pain now denies any chest pain or SOB Objective - Constitutional Vitals: Vital Signs - 12hr 03/17/20 03/17/20 03/17/20 03:20 03:43 08:41 Temperature 97.1 F L Pulse Rate 72 76 Respiratory 18 18 Rate Blood Pressure 101/63 O2 Sat by Pulse 98 Oximetry 03/17/20 03/17/20 03/17/20 09:50 10:00 10:15 Temperature 97.3 F L Pulse Rate 78 71 73 Respiratory 16 Rate Blood Pressure 107/53 93/48 97/61 O2 Sat by Pulse Oximetry 03/17/20 03/17/20 03/17/20 10:30 10:45 11:00 Temperature Pulse Rate 75 75 72 Respiratory Rate Blood Pressure 99/60 99/59 86/53 O2 Sat by Pulse Oximetry 03/17/20 03/17/20 03/17/20 11:15 11:30 11:35 Temperature Pulse Rate 78 76 76 Respiratory Rate Blood Pressure 104/65 79/43 94/52 O2 Sat by Pulse Oximetry 03/17/20 03/17/20 03/17/20 11:45 11:50 12:00 Temperature Pulse Rate 74 75 75 Respiratory Rate Blood Pressure 70/30 92/48 85/48 O2 Sat by Pulse Oximetry 05/18/20 05/18/20 05/18/20 12:15 12:30 12:45 Temperature Pulse Rate 76 78 74 Respiratory Rate Blood Pressure 93/55 115/62 109/64 O2 Sat by Pulse Oximetry 03/17/20 03/17/20 13:00 13:15 Temperature Pulse Rate 78 78 Respiratory Rate Blood Pressure 97/53 125/70 O2 Sat by Pulse Oximetry General appearance: Present: mild distress, disheveled - EENT Eyes: PERRL, EOM intact ENT: hearing intact, clear oral mucosa Ears: bilateral: normal - Neck Neck: supple, normal ROM - Respiratory Respiratory effort: normal Respiratory: bilateral: CTA - Cardiovascular Rhythm: regular Heart Sounds: Present: S1 & S2. Absent: gallop, rub Extremities: pulses intact, No edema, normal color, Full ROM - Gastrointestinal General gastrointestinal: Present: soft, non-tender, non-distended, normal bowel sounds - Integumentary Integumentary: clear, warm, dry - Musculoskeletal Musculoskeletal: generalized weakness, other (b/l BKA) - Neurologic Neurologic: moves all extremities - Psychiatric Psychiatric: memory intact, appropriate mood/affect, intact judgment & insight - Labs CBC & Chem 7: 03/17/20 03:53 03/19/20 08:45 Labs: Abnormal lab results 03/17/20 03/17/20 03/17/20 Range/Units 03:53 03:53 06:42 RBC 5.34 H (3.65-5.03) M/mm3 MCV 69 L (79-97) fl MCH 23 L (28-32) pg RDW 19.2 H (13.2-15.2) % Seg Neuts % (Manual) 73.0 H (40.0-70.0) % PT 16.0 H (12.2-14.9) Sec. INR 1.27 H (0.87-1.13) Potassium 5.8 H D (3.6-5.0) mmol/L Chloride 91.8 L (98-107) mmol/L BUN 78 H (7-17) mg/dL Creatinine 7.0 H (0.7-1.2) mg/dL Glucose 160 H (65-100) mg/dL
--- NOTE | 2020-03-17 21:21 | Consultation ---
History of Present Illness - Reason for Consult Consult date: 03/17/20 end stage renal disease Requesting physician: FARZANEH MEADOWS - History of Present Illness 55-year-old lady who is well known to me with a history of diabetes mellitus, hypertension, end-stage renal disease on hemodialysisTuesday, and Saturdays. patient presented to the emergency room on account of abdominal pain, nausea and vomiting which started 2 days ago. She was unable to keep things by mouth. She also had diarrhea 10 times on Tuesday. Stools were not bloody or mucoid but were watery. She missed her regular dialysis treatment. has symptoms continued and so patient came to the hospital for further management. Past History Past Medical History: arthritis, diabetes, ESRD (On dialysis on Tuesdays, and Tuesday), hypertension, hyperlipidemia, PVD, other (ERCP induced pancreatitis) Past Surgical History: Other (Bilateral BKA, left AV fistula) Social history: smoking (Former smoker). denies: alcohol abuse, prescription drug abuse, IV drug use Family history: diabetes, hypertension Medications and Allergies Allergies Allergy/AdvReac Type Severity Reaction Status Date / Time amlodipine Allergy Itching Verified 09/26/19 16:04 losartan Allergy Itching Verified 09/26/19 16:04 sulfamethoxazole Allergy Rash Verified 09/26/19 16:04 [From Bactrim] trimethoprim [From Bactrim] Allergy Rash Verified 09/26/19 16:04 morphine AdvReac Vomiting Verified 09/26/19 16:04 Home Medications Medication Instructions Recorded Confirmed Last Taken Type ALPRAZolam [Xanax TAB] 0.25 mg PO BID PRN #30 tablet 12/20/19 03/16/20 Unknown Rx Epoetin Jacoby 20,000 Unit [Procrit] 20,000 unit IV TuThSa vial 12/20/19 03/16/20 Unknown Rx Famotidine [Pepcid] 20 mg PO QDAY #30 tablet 12/20/19 03/16/20 Unknown Rx Folic Acid [Folvite] 1 mg PO QDAY #30 tablet 12/20/19 03/16/20 Unknown Rx Insulin Glargine [Lantus VIAL] 12 units SUB-Q QHS 30 Days #1 units 12/20/19 03/16/20 Unknown Rx Lispro Insulin [HumaLOG] See Protocol SUB-Q ACHS 30 Days #1 12/20/19 03/16/20 Unknown Rx units Metoclopramide [Reglan TAB] 5 mg PO ACHS #60 tablet 12/20/19 03/16/20 Unknown Rx NIFEdipine XL [Procardia Xl] 30 mg PO Q12HR #60 tablet 12/20/19 03/16/20 Unknown Rx Polyethylene Glycol 3350 17 gm PO DAILY #30 powd.pack 12/20/19 03/16/20 Unknown Rx [Powderlax] Sennosides/Docusate Sodium [Senna 1 each PO DAILY #30 capsule 12/20/19 03/16/20 Unknown Rx Plus 8.6-50 mg Softgel] Sevelamer Carbonate [Renvela] 1,600 mg PO AC #360 tablet 12/20/19 03/16/20 Unkno wn Rx carvediloL [Coreg] 25 mg PO BID #60 tablet 12/20/19 03/16/20 Unknown Rx cloNIDine [Catapres] 0.1 mg PO Q12HR #60 tablet 12/20/19 03/16/20 Unknown Rx hydrALAZINE [Apresoline TAB] 100 mg PO BID #60 tab 12/20/19 03/16/20 Unknown Rx hydrOXYzine HCL [Atarax] 25 mg PO Q6H PRN #120 tablet 12/20/19 03/16/20 Unknown Rx oxyCODONE [roxiCODONE] 5 mg PO Q4H PRN #30 tablet 12/20/19 03/16/20 Unknown Rx Acetaminophen 325 mg PO Q6H PRN #8 capsule 12/27/19 03/16/20 Unknown Rx Sertraline [Zoloft] 25 mg PO QDAY #30 tablet 12/27/19 03/16/20 Unknown Rx Active Meds: Active Medications Acetaminophen (Tylenol) 650 mg PO Q4H PRN PRN Reason: Pain MILD(1-3)/Fever >100.5/CASTILLO Dextrose (D50w (25gm) Syringe) 0 ml IV Q30MIN PRN; Protocol PRN Reason: Hypoglycemia Diphenhydramine HCl (Benadryl) 25 mg IV Q6H PRN PRN Reason: Itching Last Admin: 03/17/20 18:52 Dose: 25 mg Documented by: Heparin Sodium (Porcine) (Heparin) 5,000 unit SUB-Q Q8HR [facility] Last Admin: 03/17/20 14:27 Dose: 5,000 unit Documented by: Hydromorphone HCl (Dilaudid) 0.25 mg IV Q3H PRN PRN Reason: Pain, Moderate (4-6) Last Admin: 03/17/20 17:17 Dose: 0.25 mg Documented by: Sodium Chloride (Nacl 0.9%) 100 mls @ 999 mls/hr IV FRANCOIS PRN PRN Reason: Hypotension Insulin Human Lispro (Humalog) 0 unit SUB-Q ACHS [facility]; Protocol Last Admin: 03/17/20 17:54 Dose: Not Given Documented by: Magnesium Hydroxide (Milk Of Magnesia) 30 ml PO Q4H PRN PRN Reason: Constipation Ondansetron HCl (Zofran) 4 mg IV Q8H PRN PRN Reason: Nausea And Vomiting Last Admin: 03/17/20 07:56 Dose: 4 mg Documented by: Sodium Chloride (Sodium Chloride Flush Syringe 10 Ml) 10 ml IV BID [facility] Last Admin: 03/17/20 09:33 Dose: 10 ml Documented by: Sodium Chloride (Sodium Chloride Flush Syringe 10 Ml) 10 ml IV PRN PRN PRN Reason: LINE FLUSH Review of Systems All systems: negative (Constitutional: No fever or chills. Appetite is diminished, no weight loss) Exam - Vital Signs Vital signs: Vital Signs Pulse Resp BP Pulse Ox 94 H 20 177/99 100 03/16/20 00:44 03/16/20 00:44 03/16/20 00:44 03/16/20 00:44 - Physical Exam Narrative exam: middle-aged female lying inin no acute distress HEENT: Normocephalic atraumatic, pupils equal round reactive to light Normal oropharynx, Neck: Supple, no venous distention, no goiter CVS: S1S2 RRR No murmur, No rub or gallop Lungs: Clear to auscultation, no use of accessory muscles of respiration Abdomen: Full, soft, nontender, no organomegaly no bruit, bowel sounds are present Extremities: No edema, no cyanosis or clubbing, bilateral below knee of patient Urinary: Deferred Musculo-skeletal: No joint deformities or swelling Neuro: Awake, alert, no focal deficits Results - Lab Results 03/17/20 03:53 03/17/20 16:53 Most recent lab results Calcium 9.4 mg/dL (8.4-10.2) 03/17/20 06:42 Assessment and Plan - Patient Problems (1) Nausea and vomiting Current Visit: Yes Status: Acute Plan to address problem: possibly related to acute gastroenteritis. liver function tests within normal limits. Lipase normal. Continue antiemetics and follow-up (2) Abdominal pain Current Visit: Yes Status: Acute Plan to address problem: possible gastroenteritis. No signs of acute abdomen (3) ESRD (end stage renal disease) Current Visit: Yes Status: Chronic Plan to address problem: hemodialysis today. (4) IDDM (insulin dependent diabetes mellitus) Current Visit: Yes Status: Chronic Plan to address problem: blood sugar control by primary attending MD (5) Hypertensive chronic kidney disease with stage 5 chronic kidney disease or end stage renal disease Current Visit: No Status: Chronic Plan to address problem: Follow up BP on current medication (6) Hyperkalemia Current Visit: Yes Status: Acute Plan to address problem: secondary to missed hemodialysis treatment. Hemodialysis today on a low potassium bath.
[2020-03-18] MEDS: HEPARIN 5,000 UNIT/1 ML VIAL SUB-Q SCH ×3 (05:11→22:19)
[2020-03-18] MEDS: diphenhydrAMINE 50 MG/ML VIAL IV PRN ×3 (05:11→18:28)
[2020-03-18] MEDS: HYDROmorphone 1 MG/1 ML INJ IV PRN ×5 (05:12→22:28)
--- NOTE | 2020-03-18 08:35 | Progress Note ---
Assessment and Plan - Patient Problems (1) Nausea and vomiting Current Visit: Yes Status: Acute Plan to address problem: possibly related to acute gastroenteritis. liver function tests within normal limits. Lipase normal. Continue antiemetics and follow-up (2) Abdominal pain Current Visit: Yes Status: Acute Plan to address problem: possible gastroenteritis. No signs of acute abdomen (3) ESRD (end stage renal disease) Current Visit: Yes Status: Chronic Plan to address problem: hemodialysis in the morning (4) IDDM (insulin dependent diabetes mellitus) Current Visit: Yes Status: Chronic Plan to address problem: blood sugar control by primary attending MD (5) Hypertensive chronic kidney disease with stage 5 chronic kidney disease or end stage renal disease Current Visit: No Status: Chronic Plan to address problem: Follow up BP on current medication (6) Hyperkalemia Current Visit: Yes Status: Acute Plan to address problem: secondary to missed hemodialysis treatment. Potassium back to normal postdialysis Subjective Date of service: 03/18/20 Principal diagnosis: End-stage renal disease with abdominal pain vomiting or diarrhea Interval history: Patient seen lying in bed today. Still complains of lower abdominal pain. She still complains of nausea but no vomiting. No more diarrhea Objective - Exam Narrative Exam: middle-aged female lying inin no acute distress HEENT: Normocephalic atraumatic, pupils equal round reactive to light Normal oropharynx, Neck: Supple, no venous distention, no goiter CVS: S1S2 RRR No murmur, No rub or gallop Lungs: Clear to auscultation, no use of accessory muscles of respiration Abdomen: Full, soft, suprapubic fullness and tenderness, no organomegaly no brui t, bowel sounds are present Extremities: No edema, no cyanosis or clubbing, bilateral below knee of patient Urinary: Deferred Musculo-skeletal: No joint deformities or swelling Neuro: Awake, alert, no focal deficits - Vital Signs Vital signs: Vital Signs - 12hr 03/17/20 03/17/20 03/18/20 22:00 22:56 00:00 Temperature 98.5 F Pulse Rate 78 85 81 Respiratory 16 Rate Blood Pressure 112/69 O2 Sat by Pulse 95 Oximetry 03/18/20 03/18/20 03:08 04:00 Temperature 98.0 F Pulse Rate 78 Respiratory 18 Rate Blood Pressure 106/70 O2 Sat by Pulse Oximetry - Lab 03/17/20 03:53 03/17/20 16:53 Most recent lab results Calcium 9.4 mg/dL (8.4-10.2) 03/17/20 06:42 Medications & Allergies - Medications Allergies/Adverse Reactions: Allergies amlodipine Allergy (Verified 09/26/19 16:04) Itching losartan Allergy (Verified 09/26/19 16:04) Itching sulfamethoxazole [From Bactrim] Allergy (Verified 09/26/19 16:04) Rash trimethoprim [From Bactrim] Allergy (Verified 09/26/19 16:04) Rash morphine Adverse Reaction (Verified 09/26/19 16:04) Vomiting Home Medications: Home Medications Medication Instructions Recorded Confirmed Last Taken Type ALPRAZolam [Xanax TAB] 0.25 mg PO BID PRN #30 tablet 12/20/19 03/16/20 Unknown Rx Epoetin Jacoby 20,000 Unit [Procrit] 20,000 unit IV TuThSa vial 12/20/19 03/16/20 Unknown Rx Famotidine [Pepcid] 20 mg PO QDAY #30 tablet 12/20/19 03/16/20 Unknown Rx Folic Acid [Folvite] 1 mg PO QDAY #30 tablet 12/20/19 03/16/20 Unknown Rx Insulin Glargine [Lantus VIAL] 12 units SUB-Q QHS 30 Days #1 units 12/20/19 0 03/16/20 Unknown Rx Lispro Insulin [HumaLOG] See Protocol SUB-Q ACHS 30 Days #1 12/20/19 03/16/20 U nknown Rx units Metoclopramide [Reglan TAB] 5 mg PO ACHS #60 tablet 12/20/19 03/16/20 Unknown Rx NIFEdipine XL [Procardia Xl] 30 mg PO Q12HR #60 tablet 12/20/19 03/16/20 Unknown Rx Polyethylene Glycol 3350 17 gm PO DAILY #30 powd.pack 12/20/19 03/16/20 Unknown Rx [Powderlax] Sennosides/Docusate Sodium [Senna 1 each PO DAILY #30 capsule 12/20/19 03/16/20 Unknown Rx Plus 8.6-50 mg Softgel] Sevelamer Carbonate [Renvela] 1,600 mg PO AC #360 tablet 12/20/19 03/16/20 Unknown Rx carvediloL [Coreg] 25 mg PO BID #60 tablet 12/20/19 03/16/20 Unknown Rx cloNIDine [Catapres] 0.1 mg PO Q12HR #60 tablet 12/20/19 03/16/20 Unknown Rx hydrALAZINE [Apresoline TAB] 100 mg PO BID #60 tab 12/20/19 03/16/20 Unknown Rx hydrOXYzine HCL [Atarax] 25 mg PO Q6H PRN #120 tablet 12/20/19 03/16/20 Unknown Rx oxyCODONE [roxiCODONE] 5 mg PO Q4H PRN #30 tablet 12/20/19 03/16/20 Unknown Rx Acetaminophen 325 mg PO Q6H PRN #8 capsule 12/27/19 03/16/20 Unknown Rx Sertraline [Zoloft] 25 mg PO QDAY #30 tablet 12/27/19 03/16/20 Unknown Rx Active Medications: Generic Name Dose Route Start Last Admin Trade Name Freq PRN Reason Stop Dose Admin Acetaminophen 650 mg 03/16/20 03:49 Tylenol PO Q4H PRN Pain MILD(1-3)/Fever >100.5/CASTILLO Dextrose 0 ml 03/16/20 03:49 D50w (25gm) Syringe IV Q30MIN PRN Hypoglycemia Protocol Diphenhydramine HCl 25 mg 03/16/20 20:32 03/18/20 05:11 Benadryl IV 25 mg Q6H PRN Administration Itching Heparin Sodium (Porcine) 5,000 unit 03/16/20 14:00 03/18/20 05:11 Heparin SUB-Q 5,000 unit Q8HR FATMATA Administration Hydromorphone HCl 0.25 mg 03/16/20 03:49 03/18/20 05:12 Dilaudid IV 0.25 mg Q3H PRN Administration Pain, Moderate (4-6) Sodium Chloride 100 mls @ 999 mls/hr 03/17/20 08:18 Nacl 0.9% IV FRANCOIS PRN Hypotension Insulin Human Lispro 0 unit 03/16/20 07:30 03/17/20 23:00 Humalog SUB-Q 2 unit ACHS FATMATA Administration Protocol Magnesium Hydroxide 30 ml 03/16/20 03:49 Milk Of Magnesia PO Q4H PRN Constipation Ondansetron HCl 4 mg 03/16/20 03:49 03/17/20 23:09 Zofran IV 4 mg Q8H PRN Administration Nausea And Vomiting Sodium Chloride 10 ml 03/16/20 10:00 03/17/20 21:40 Sodium Chloride Flush Syringe 10 Ml IV 10 ml BID FATMATA Administration Sodium Chloride 10 ml 03/16/20 03:49 Sodium Chloride Flush Syringe 10 Ml IV PRN PRN LINE FLUSH
[2020-03-18] MEDS: INSULIN LISPRO 100 UNIT/ML SUB-Q SCH ×4 (08:47→21:16)
[2020-03-18] MEDS: ONDANSETRON 4 MG/2 ML INJ IV PRN (09:37)
[2020-03-18] MEDS ORDERED: hydrOXYzine HCL 25 MG TAB PO PRN (13:29)
[2020-03-18] MEDS ORDERED: ALPRAZolam 0.25 MG TAB PO PRN (13:29)
[2020-03-18] MEDS ORDERED: EPOETIN ALFA 20,000 UNIT/1 ML INJ IV SCH (14:00)
--- NOTE | 2020-03-18 14:40 | Progress Note ---
Assessment and Plan /Nausea & vomiting likely from gastroparesis, cont home meds Patient has been placed on IV Zofran PRN for nausea and vomiting. / ESRD (end stage renal disease) consulted nephrology for dialysis. Patient follows up with Dr. Beltran. monitor BMP, avoid nephrotoxins / Diabetes type 2 monitor Accu-Cheks and cont SSI hold long acting insulin as she is c/o n/v and BG labile /Hyperkalemia, should improve with HD / HLD (hyperlipidemia) resume routine home medications. /HTN (hypertension) resume home meds, monitor BP /b/l BKA - supportive care /DVT prophylaxis Patient placed on subcutaneous heparin. / Full code status 03/17; s/p HD today, repeat BMP. resume home meds. c/o Nausea and poor oral intake 03/18: continue to c/o nausea, abdomianl pain. change diet to full liquid diet. cont antiemetic, scheduled Reglan and monitor clinically Subjective Date of service: 03/18/20 Principal diagnosis: End-stage renal disease with abdominal pain vomiting or diarrhea Interval history: Patient seen and examined K levated today, plan for HD c/o N/V, states she is having abdominal pain today denies any chest pain or SOB Objective - Exam Narrative Exam: General appearance: Present: mild distress, disheveled - EENT Eyes: PERRL, EOM intact ENT: hearing intact, clear oral mucosa Ears: bilateral: normal - Neck Neck: supple, normal ROM - Respiratory Respiratory effort: normal Respiratory: bilateral: CTA - Cardiovascular Rhythm: regular Heart Sounds: Present: S1 & S2. Absent: gallop, rub Extremities: pulses intact, No edema, normal color, Full ROM - Gastrointestinal General gastrointestinal: Present: soft, non-tender, non-distended, normal bowel sounds - Integumentary Integumentary: clear, warm, dry - Musculoskeletal Musculoskeletal: generalized weakness, other (b/l BKA) - Neurologic Neurologic: moves all extremities - Psychiatric Psychiatric: memory intact, appropriate mood/affect, intact judgment & insight - Constitutional Vitals: Vital Signs - 12hr 03/18/20 03/18/20 03/18/20 03:08 04:00 07:45 Temperature 98.0 F 96.0 F L Pulse Rate 78 81 Pulse Rate [ Apical] Pulse Rate [ Left Radial] Pulse Rate [ Right Radial] Respiratory 18 18 Rate Blood Pressure 106/70 98/66 O2 Sat by Pulse 96 Oximetry 03/18/20 03/18/20 08:00 10:00 Temperature Pulse Rate 74 Pulse Rate [ 74 Apical] Pulse Rate [ 74 Left Radial] Pulse Rate [ 74 Right Radial] Respiratory 18 Rate Blood Pressure O2 Sat by Pulse 99 Oximetry - Labs CBC & Chem 7: 03/17/20 03:53 03/19/20 08:45 Labs: Abnormal lab results 03/16/20 03/17/20 03/17/20 Range/Units 21:29 16:59 20:26 POC Glucose 185 H 177 H 171 H (70-105) 03/18/20 03/18/20 Range/Units 07:47 11:21 POC Glucose 113 H 112 H (70-105)
[2020-03-18] MEDS: SERTRALINE 25 MG TAB PO SCH (14:49)
[2020-03-18] MEDS: FAMOTIDINE 20 MG TAB PO SCH (14:49)
[2020-03-18] MEDS: FOLIC ACID 1 MG TAB PO SCH (14:49)
[2020-03-18] MEDS: SEVELAMER CARBONATE 800 MG TAB PO SCH (16:31)
[2020-03-18] MEDS: METOCLOPRAMIDE 10 MG TAB PO SCH ×2 (16:32→22:19)
[2020-03-19] MEDS: diphenhydrAMINE 50 MG/ML VIAL IV PRN ×2 (05:27→11:50)
[2020-03-19] MEDS: HEPARIN 5,000 UNIT/1 ML VIAL SUB-Q SCH ×2 (05:28→14:20)
[2020-03-19] MEDS: ONDANSETRON 4 MG/2 ML INJ IV PRN ×2 (05:35→14:25)
[2020-03-19] MEDS: INSULIN LISPRO 100 UNIT/ML SUB-Q SCH ×3 (07:30→17:27)
[2020-03-19] MEDS: SEVELAMER CARBONATE 800 MG TAB PO SCH ×3 (08:00→17:27)
[2020-03-19 09:28] LABS: Calcium 9.4 mg/dL (8.4-10.2)
[2020-03-19] MEDS: METOCLOPRAMIDE 10 MG TAB PO SCH ×3 (10:33→17:27)
--- NOTE | 2020-03-19 10:43 | Progress Note ---
Assessment and Plan - Patient Problems (1) Chest pain at rest Status: Acute Plan to address problem: Patient was given nitroglycerin. Stat EKG was ordered. Also ordered clonidine 0.1 mg for the elevated blood pressure. I called the primary attending to discuss patient's condition. Left message to call me back. (2) Nausea and vomiting Status: Acute Plan to address problem: possibly related to acute gastroenteritis. liver function tests within normal limits. Lipase normal. Improving. Continue antiemetics and follow-up (3) Abdominal pain Status: Acute Plan to address problem: possible gastroenteritis. No signs of acute abdomen (4) ESRD (end stage renal disease) Status: Chronic Plan to address problem: hemodialysis in the morning (5) IDDM (insulin dependent diabetes mellitus) Status: Chronic Plan to address problem: blood sugar control by primary attending MD (6) Hypertensive chronic kidney disease with stage 5 chronic kidney disease or end stage renal disease Status: Chronic Plan to address problem: Give a dose of clonidine now. Follow up BP on current medication. If blood pressure remains elevated, we will have to adjust medications. (7) Hyperkalemia Status: Acute Plan to address problem: secondary to missed hemodialysis treatment. Potassium back to normal postdialysis Subjective Date of service: 03/19/20 Principal diagnosis: End-stage renal disease with abdominal pain vomiting or diarrhea Interval history: Patient seen lying in bed on Hemodialysis. Patient was complaining of chest pain. It was mild. She had it before she came to dialysis.. She still complains of nausea but no vomiting. No more diarrhea Objective - Exam Narrative Exam: middle-aged female lying inin no acute distress HEENT: Normocephalic atraumatic, pupils equal round reactive to light Normal oropharynx, Neck: Supple, no venous distention, no goiter CVS: S1S2 RRR No murmur, No rub or gallop Lungs: Clear to auscultation, no use of accessory muscles of respiration Abdomen: Full, soft, suprapubic fullness and tenderness, no organomegaly no bruit, bowel sounds are present Extremities: No edema, no cyanosis or clubbing, bilateral below knee of patient Urinary: Deferred Musculo-skeletal: No joint deformities or swelling Neuro: Awake, alert, no focal deficits - Vital Signs Vital signs: Vital Signs - 12hr 03/18/20 03/18/20 03/19/20 22:59 23:39 03:21 Temperature 98.0 F 98.3 F Pulse Rate 84 76 Pulse Rate [ 74 Apical] Pulse Rate [ 74 Left Radial] Respiratory 18 18 Rate Blood Pressure 124/66 147/84 O2 Sat by Pulse 93 99 95 Oximetry 03/19/20 03/19/20 03/19/20 07:42 09:30 09:48 Temperature 98.2 F 97.8 F Pulse Rate 74 73 71 Pulse Rate [ Apical] Pulse Rate [ Left Radial] Respiratory 18 20 Rate Blood Pressure 166/86 175/97 174/96 O2 Sat by Pulse 100 Oximetry 03/19/20 03/19/20 03/19/20 10:00 10:15 10:30 Temperature Pulse Rate 71 72 72 Pulse Rate [ Apical] Pulse Rate [ Left Radial] Respiratory Rate Blood Pressure 180/101 180/103 188/100 O2 Sat by Pulse Oximetry - Lab 03/17/20 03:53 03/19/20 08:45 Most recent lab results Calcium 9.4 mg/dL (8.4-10.2) 03/19/20 08:45 Medications & Allergies - Medications Allergies/Adverse Reactions: Allergies amlodipine Allergy (Verified 09/26/19 16:04) Itching losartan Allergy (Verified 09/26/19 16:04) Itching sulfamethoxazole [From Bactrim] Allergy (Verified 09/26/19 16:04) Rash trimethoprim [From Bactrim] Allergy (Verified 09/26/19 16:04) Rash morphine Adverse Reaction (Verified 09/26/19 16:04) Vomiting Home Medications: Home Medications Medication Instructions Recorded Confirmed Last Taken Type ALPRAZolam [Xanax TAB] 0.25 mg PO BID PRN #30 tablet 12/20/19 03/16/20 Unknown Rx Epoetin Jacoby 20,000 Unit [Procrit] 20,000 unit IV TuThSa vial 12/20/19 03/16/20 Unknown Rx Famotidine [Pepcid] 20 mg PO QDAY #30 tablet 12/20/19 03/16/20 Unknown Rx Folic Acid [Folvite] 1 mg PO QDAY #30 tablet 12/20/19 03/16/20 Unknown Rx Lispro Insulin [HumaLOG] See Protocol SUB-Q ACHS 30 Days #1 12/20/19 03/16/20 Unknown Rx units Metoclopramide [Reglan TAB] 5 mg PO ACHS #60 tablet 12/20/19 03/16/20 Unknown Rx NIFEdipine XL [Procardia Xl] 30 mg PO Q12HR #60 tablet 12/20/19 03/16/20 Unknown Rx Polyethylene Glycol 3350 17 gm PO DAILY #30 powd.pack 12/20/19 03/16/20 Unknown Rx [Powderlax] Sennosides/Docusate Sodium [Senna 1 each PO DAILY #30 capsule 12/20/19 03/16/20 Unknown Rx Plus 8.6-50 mg Softgel] Sevelamer Carbonate [Renvela] 1,600 mg PO AC #360 tablet 12/20/19 03/16/20 Unknown Rx carvediloL [Coreg] 25 mg PO BID #60 tablet 12/20/19 03/16/20 Unknown Rx cloNIDine [Catapres] 0.1 mg PO Q12HR #60 tablet 12/20/19 03/16/20 Unknown Rx hydrALAZINE [Apresoline TAB] 100 mg PO BID #60 tab 12/20/19 03/16/20 Unknown Rx hydrOXYzine HCL [Atarax] 25 mg PO Q6H PRN #120 tablet 12/20/19 03/16/20 Unknown Rx oxyCODONE [roxiCODONE] 5 mg PO Q4H PRN #30 tablet 12/20/19 03/16/20 Unknown Rx Acetaminophen 325 mg PO Q6H PRN #8 capsule 12/27/19 03/16/20 Unknown Rx Sertraline [Zoloft] 25 mg PO QDAY #30 tablet 12/27/19 03/16/20 Unknown Rx Insulin Glargine [Lantus VIAL] 8 units SUB-Q QHS 30 Days #1 units 03/19/20 03/16/20 Unknown Rx Active Medications: Generic Name Dose Route Start Last Admin Trade Name Freq PRN Reason Stop Dose Admin Acetaminophen 650 mg 03/16/20 03:49 Tylenol PO Q4H PRN Pain MILD(1-3)/Fever >100.5/CASTILLO Alprazolam 0.25 mg 03/18/20 13:29 Xanax PO BID PRN Anxiety Dextrose 0 ml 03/16/20 03:49 D50w (25gm) Syringe IV Q30MIN PRN Hypoglycemia Protocol Diphenhydramine HCl 25 mg 03/16/20 20:32 03/19/20 05:27 Benadryl IV 25 mg Q6H PRN Administration Itching Epoetin Jacoby 20,000 unit 03/21/20 14:00 Procrit IV FRANCOIS PRN DILAYSIS Famotidine 20 mg 03/18/20 14:00 03/18/20 14:49 Pepcid PO 20 mg QDAY FATMATA Administration Folic Acid 1 mg 03/18/20 14:00 03/18/20 14:49 Folvite PO 1 mg QDAY FATMATA Administration Heparin Sodium (Porcine) 5,000 unit 03/16/20 14:00 03/19/20 05:28 Heparin SUB-Q 5,000 unit Q8HR FATMATA Administration Hydromorphone HCl 0.25 mg 03/16/20 03:49 03/18/20 22:28 Dilaudid IV 0.25 mg Q3H PRN Administration Pain, Moderate (4-6) Hydroxyzine HCl 25 mg 03/18/20 13:29 Atarax PO Q6H PRN Itching Sodium Chloride 100 mls @ 999 mls/hr 03/17/20 08:18 Nacl 0.9% IV FRANCOIS PRN Hypotension Insulin Human Lispro 0 unit 03/18/20 16:30 03/18/20 21:16 Humalog SUB-Q Not Given ACHS [facility] Protocol Magnesium Hydroxide 30 ml 03/16/20 03:49 Milk Of Magnesia PO Q4H PRN Constipation Metoclopramide HCl 5 mg 03/18/20 16:30 03/19/20 10:33 Reglan PO 5 mg ACHS FATMATA Administration Ondansetron HCl 4 mg 03/16/20 03:49 03/19/20 05:35 Zofran IV 4 mg Q8H PRN Administration Nausea And Vomiting Sertraline HCl 25 mg 03/18/20 14:00 03/18/20 14:49 Zoloft PO 25 mg QDAY FATMATA Administration Sevelamer Carbonate 1,600 mg 03/18/20 16:30 03/18/20 16:31 Renvela PO 1,600 mg AC FATMATA Administration Sodium Chloride 10 ml 03/16/20 10:00 03/18/20 22:19 Sodium Chloride Flush Syringe 10 Ml IV 10 ml BID FATMATA Administration Sodium Chloride 10 ml 03/16/20 03:49 Sodium Chloride Flush Syringe 10 Ml IV PRN PRN LINE FLUSH
[2020-03-19] MEDS ORDERED: cloNIDine 0.1 MG TAB PO PRN (11:08)
[2020-03-19] MEDS ORDERED: NITROGLYCERIN 0.4 MG TAB SUBL SL PRN (11:30)
--- NOTE | 2020-03-19 13:50 | Discharge Summary ---
Providers - Providers Date of Admission: 03/16/20 03:34 Date of discharge: 03/19/20 Attending physician: MAGALI WEST 03/16/20 03:19 Consult to Physician [CONS] Urgent Comment: Consulting Provider: MERLE BELTRAN Physician Instructions: Reason For Exam: esrd dialysis 03/16/20 03:49 Consult to Dietitian/Nutrition [CONS] Routine Physician Instructions: Reason For Exam: Reason for Consult: Diet education 03/18/20 09:36 Consult to Wound/ET Nurse [CONS] Routine Reason For Exam: wound eval Primary care physician: TRANSPORT ENGINEER Hospitalization Condition: Stable Pertinent studies: CXR Abdomen/pelvis CT Hospital course: 55-year-old female with known history of hypertension, diabetes mellitus, bilateral BKA, ERCP induced pancreatitis and end-stage renal disease on dialysis Tuesdays, and Tuesday presented to the emergency room with complaints of nausea and vomiting and abdominal pain for 2 days. Patient also missed last 2 dialysis secondary to the nausea and vomiting and abdominal pain. Work-up in the emergency room including chest x-ray revealed some mild pulmonary vascular congestion. Patient was admitted hospital for further evaluation and Mx. 03/17; s/p HD today, repeat BMP. resume home meds. c/o Nausea and poor oral intake 03/18: continue to c/o nausea, abdomianl pain. change diet to full liquid diet. cont antiemetic, scheduled Reglan and monitor clinically 03/19: clinically improved. Discharged home in stable condition. Discharge Diagnosis and Mx: /Nausea & vomiting likely from gastroparesis, resumed home meds Patient was also placed on IV Zofran PRN for nausea and vomiting. / ESRD (end stage renal disease) with volume overload consulted nephrology for dialysis. Patient follows up with Dr. Beltran. monitored BMP, avoided nephrotoxins /Ascitis, continue volume control with HD / Diabetes type 2 monitored with Accu-Cheks and SSI held long acting insulin as patient had n/v and BG was labile /Hyperkalemia, improved with HD / HLD (hyperlipidemia) resumed routine home medications. /HTN (hypertension) resumed home meds, monitored BP /b/l BKA - provided supportive care /DVT prophylaxis Patient placed on subcutaneous heparin. / Full code status Disposition: [id number] HOME UNDER HOME HL Time spent for discharge: 34 minutes Core Measure Documentation - Palliative Care Palliative Care/ Comfort Measures: Not Applicable - Core Measures Any of the following diagnoses?: history only Exam - Physical Exam Narrative exam: General appearance: Present: no acute distress, - EENT Eyes: PERRL, EOM intact ENT: hearing intact, clear oral mucosa Ears: bilateral: normal - Neck Neck: supple, normal ROM - Respiratory Respiratory effort: normal Respiratory: bilateral: CTA - Cardiovascular Rhythm: regular Heart Sounds: Present: S1 & S2. Absent: gallop, rub Extremities: pulses intact, No edema, normal color, Full ROM - Gastrointestinal General gastrointestinal: Present: soft, non-tender, non-distended, normal bowel sounds - Integumentary Integumentary: clear, warm, dry - Musculoskeletal Musculoskeletal: generalized weakness, other (b/l BKA) - Neurologic Neurologic: moves all extremities - Psychiatric Psychiatric: memory intact, appropriate mood/affect, intact judgment & insight - Constitutional Vitals: Temp Pulse Resp BP Pulse Ox 97.9 F 76 20 186/100 100 03/19/20 13:15 03/19/20 13:15 03/19/20 13:15 03/19/20 13:15 03/19/20 07:42 Plan Activity: fall precautions Weight Bearing Status: Non-Weight Bearing Diet: diabetic, renal, other (full liquid diet and advance as tolerated) Special Instructions: restrict fluid intake to (1.2L per day), record daily weights Durable Medical Equipment Needed Upon Discharge: Wheelchair Follow up with: PRIMARY CARE, [Primary Care Provider] - 3-5 Days Forms: Discharge Signature Page
[2020-03-19] MEDS ORDERED: carvediloL 25 MG TAB PO SCH (14:00)
[2020-03-19] MEDS: FAMOTIDINE 20 MG TAB PO SCH (14:19)
[2020-03-19] MEDS: FOLIC ACID 1 MG TAB PO SCH (14:19)
[2020-03-19] MEDS: SERTRALINE 25 MG TAB PO SCH (14:19)
[2020-03-19 17:42] VITALS: BP 162/76
[2020-03-19] MEDS ORDERED: SODIUM CHLORIDE*PRIMING MACHINE ONLY FOR DIALYSIS MC ONE (18:43)
[2020-03-19] MEDS ORDERED: hydrALAZINE 100 MG TAB PO SCH (22:00)
[2020-03-19] MEDS ORDERED: NIFEdipine XL 30 MG TAB PO SCH (22:00)
[2020-03-19] MEDS ORDERED: cloNIDine 0.1 MG TAB PO SCH (22:00)
[2020-03-21] MEDS ORDERED: EPOETIN ALFA 20,000 UNIT/1 ML INJ IV PRN (14:00)
== END 2020-03-19 17:53 | disposition home health service (06) | DRG 73 ==
LOC: SUATTDRO 00:33 → ED 00:33 → 4A 03:34
PROVIDERS: ADMIT Internal Medicine Geriatric Medicine; ATTEND Internal Medicine
PROC: 5A1D70Z Performance of Urinary Filtration, Intermittent, Less than 6 Hours Per Day (ICD-10-PCS; principal; 2020-03-17)
PROC: 5A1D70Z Performance of Urinary Filtration, Intermittent, Less than 6 Hours Per Day (ICD-10-PCS; 2020-03-19)
DX: E11.43 Type 2 diabetes mellitus with diabetic autonomic (poly)neuropathy (principal); N18.6 End stage renal disease; R18.8 Other ascites; I12.0 Hypertensive chronic kidney disease with stage 5 chronic kidney disease or end stage renal disease; E87.5 Hyperkalemia; E78.5 Hyperlipidemia, unspecified; E11.22 Type 2 diabetes mellitus with diabetic chronic kidney disease; M19.90 Unspecified osteoarthritis, unspecified site; E11.621 Type 2 diabetes mellitus with foot ulcer; L97.509 Non-pressure chronic ulcer of other part of unspecified foot with unspecified severity; E78.2 Mixed hyperlipidemia; K31.84 Gastroparesis; I73.9 Peripheral vascular disease, unspecified; Z88.2 Allergy status to sulfonamides; Z88.8 Allergy status to other drugs, medicaments and biological substances; Z88.6 Allergy status to analgesic agent; Z99.2 Dependence on renal dialysis; Z89.512 Acquired absence of left leg below knee; Z89.511 Acquired absence of right leg below knee; Z87.891 Personal history of nicotine dependence; Z79.4 Long term (current) use of insulin; Z83.3 Family history of diabetes mellitus; Z82.49 Family history of ischemic heart disease and other diseases of the circulatory system
CPT/HCPCS: 36415; 71045; 74176; 80048; 80074; 80076; 82962; 83690; 84132; 85007; 85025; 85610; 93005; G0378; J1170; J1200; J1644; J1815; J2405; J7030; J7050; Q0162

== ENCOUNTER 2020-04-21 09:54 | Outpatient (CLI) | payer MEDICARE, OTHER ==
[2020-04-21] MEDS ORDERED: LIDOCAINE (4%) 40 MG/ML TOPICAL SOLN 50 ML BOTTLE TP ONE (10:28)
== END 2020-04-21 09:55 | disposition home or self-care (01) ==
LOC: WOUND 09:54
PROVIDERS: ATTEND Surgery
DX: T87.89 Other complications of amputation stump (principal); L02.415 Cutaneous abscess of right lower limb; I10 Essential (primary) hypertension; E11.9 Type 2 diabetes mellitus without complications; Z99.2 Dependence on renal dialysis; Z87.891 Personal history of nicotine dependence; Y83.5 Amputation of limb(s) as the cause of abnormal reaction of the patient, or of later complication, without mention of misadventure at the time of the procedure

== ENCOUNTER 2020-05-05 11:25 | Outpatient (CLI) | payer MEDICARE ==
[2020-05-05] MEDS ORDERED: LIDOCAINE (4%) 40 MG/ML TOPICAL SOLN 50 ML BOTTLE TP ONE (12:30)
== END 2020-05-05 11:26 | disposition home or self-care (01) ==
LOC: WOUND 11:25
PROVIDERS: ATTEND Surgery
DX: T87.89 Other complications of amputation stump (principal); L02.415 Cutaneous abscess of right lower limb; I10 Essential (primary) hypertension; E11.9 Type 2 diabetes mellitus without complications; Z99.2 Dependence on renal dialysis; Z87.891 Personal history of nicotine dependence; Y83.5 Amputation of limb(s) as the cause of abnormal reaction of the patient, or of later complication, without mention of misadventure at the time of the procedure

== ENCOUNTER 2020-05-19 10:39 | Outpatient (CLI) | payer MEDICARE ==
[2020-05-19] MEDS ORDERED: LIDOCAINE (4%) 40 MG/ML TOPICAL SOLN 50 ML BOTTLE TP ONE (11:05)
== END 2020-05-19 10:40 | disposition home or self-care (01) ==
LOC: WOUND 10:39
PROVIDERS: ATTEND Surgery
DX: T87.89 Other complications of amputation stump (principal); L02.415 Cutaneous abscess of right lower limb; S81.802A Unspecified open wound, left lower leg, initial encounter; I10 Essential (primary) hypertension; E11.9 Type 2 diabetes mellitus without complications; Z99.2 Dependence on renal dialysis; Z87.891 Personal history of nicotine dependence; Z89.511 Acquired absence of right leg below knee; X58.XXXA Exposure to other specified factors, initial encounter; Y93.89 Activity, other specified; Y92.89 Other specified places as the place of occurrence of the external cause; Y99.8 Other external cause status; Y83.5 Amputation of limb(s) as the cause of abnormal reaction of the patient, or of later complication, without mention of misadventure at the time of the procedure
CPT/HCPCS: 99215; G0463